=== PATIENT | male | born 1945 | race Caucasian/White ===

== ENCOUNTER 2021-03-07 11:46 | Observation (INO) ==
--- NOTE | 2021-03-07 11:07 | ED Telehealth Note ---
Telehealth Telehealth Options: 2-way audio and video For the duration of the visit, provider was performing the assessment from: A different facility than the patient After establishing a telemedicine visit, patient was: Patient was verified with two unique identifiers, Patient/authorized rep acknowledged consent and understanding and Gave permission to continue telehealth session Total Time Spent (minutes): 7 Impression & Plan Abdominal pain, Bloody diarrhea Note/Exam/Outcome Date of Service March 07, 2021 This pleasant 75-year-old male requested evaluation via telehealth with complaints of abdominal pain and diarrhea. Patient notes that he is getting over COVID and has been having diarrhea for weeks. However, he started having diffuse abdominal pain and back pain that started about 3 days ago and has been getting worse. Today he is feeling bloated. He has been feeling generally weak and tired. He also notes that he had some blood in his diarrhea a few days ago and now he is having black stools. He does take warfarin. He has not been vomi ting. He denies dizziness or syncope. He has not had any fevers recently. ED Telehealth Outcome Referred to ED for in person visit ED Visit Note I evaluated this pleasant 75-year-old male via telehealth with complaints of abdominal pain and diarrhea. Patient does note increasing abdominal pain as well as some bloody and black stools and is on blood thinner medications. Based on his complaints, I did feel that the patient warranted in person evaluation and I did recommend that he come to the emergency department for evaluation. He was agreeable to this. The patient did state that he feels well enough to drive himself, I cautioned him about this and stated if he felt too weak, dizzy, or short of breath that he should call an ambulance to bring him here if he does not feel safe to drive, he verbalized understanding. General Additional Notes: well appearing, in no acute distress Past Med/Surg History Medical History Asthma Benign esophageal stricture Degenerative arthritis of knee, bilateral DVT (deep venous thrombosis) Hypertension Lumbar spondylosis Pancreatitis Psoriasis Pulmonary emboli Trochanteric bursitis, right hip Surgical History S/P cholecystectomy S/P gastroplasty S/P hernia repair S/P tonsillectomy Family History Family/Other Hearing loss Paternal cousins Mother Hypertension Heart disease Other Myocardial infarction No family history of adverse response to anesthesia No family history of bleeding disorder Prostate cancer Denies family history of Ovarian cancer Breast cancer Colorectal cancer Social History Smoking Status: Never smoker Tobacco Type: Cigarettes packs per day: 1; Years Smoked: 25; Second Hand Exposure: No; Hx Alcohol Use: No Hx Substance Use: No Preferred Language: Sammarinese Visual Impairment: No Limitations Hearing Ability: Normal marital status: Current Living Situation: Spouse current occupational status: retired Feels Safe at Home: Yes Dental Care, Regularly: No Physical Activity Frequency: 1-2 Times per Week Physical Activity Frequency Comment: excerise arms Seatbelt Use: always Sunscreen Use: Yes Allergies Allergies Allergy/AdvReac Type Severity Reaction Status Date / Time amoxicillin Allergy Intermediate rash Verified 02/27/21 15:41 Penicillins Allergy Intermediate rash Verified 02/27/21 15:41 Home Meds Home Medications Medication Instructions Recorded Confirmed ferrous sulfate [Iron (ferrous 1 tab PO .QOD 06/03/20 02/27/21 sulfate)] warfarin 5 mg tablet See Rx Instructions PO DAILY tab 02/20/21 02/27/21 Previous Rx's Medication Instructions Recorded meclizine 25 mg tablet 25 mg PO BID PRN #30 tab 04/09/20 hydrochlorothiazide 25 mg tablet 25 mg PO DAILY #90 tab 04/25/20 lisinopril 20 mg tablet 20 mg PO DAILY #90 tab 04/25/20 pantoprazole 40 mg tablet,delayed 40 mg PO DAILY #90 tab 05/07/20 release potassium chloride 20 mEq 20 meq PO DAILY #90 tab 11/05/20 tablet,extended release(part/cryst) (Klor-Con M) fluoxetine 20 mg capsule 20 mg PO DAILY #180 cap 02/03/21 Results & Data (ED) Laboratory Data Result diagrams: 03/07/21 12:22 03/07/21 12:22 Discharge Plan Visit Data Chief Complaint: Abdominal Pain Stated Complaint: ABD PAIN, DIARRHEA ED Provider: Minh Godoy Discharge Problem: Abdominal pain, Bloody diarrhea Forms Stand Alone Forms: [facility] Prescriptions Prescriptions: No Action warfarin 5 mg tablet 7.5 mg PO DAILY RF: 0 hydrochlorothiazide 25 mg tablet 25 mg PO DAILY Qty: 90 RF: 3 lisinopril 20 mg tablet 20 mg PO DAILY Qty: 90 RF: 3 pantoprazole 40 mg tablet,delayed release (DR/EC) 40 mg PO DAILY Qty: 90 RF: 3 Klor-Con M20 20 mEq tablet,ER particles/crystals 20 meq PO DAILY Qty: 90 RF: 3 fluoxetine 20 mg capsule 20 mg PO DAILY Qty: 180 RF: 3 meclizine 25 mg tablet 25 mg PO BID PRN (Reason: dizziness) Qty: 30 RF: 0 ferrous sulfate 1 tab PO DAILY RF: 0 Referrals Referrals: Amirah Lopez CRNP [Primary Care Provider] - Discharge Problem: Abdominal pain Qualifiers: Abdominal location: generalized Qualified Code(s): R10.84 - Generalized abdominal pain
[2021-03-07] MEDS ORDERED: SODIUM CHLORIDE 0.9% 500 ML IV SCH (12:00)
--- NOTE | 2021-03-07 12:19 | Emergency Department Note ---
Impression & Plan Abdominal pain, DVT (deep venous thrombosis), Elevated INR, Low bicarbonate level, GI bleed ED Provider Note NAME: PANCHO SANDHU AGE: 75 SEX: M : 1945 ARRIVES VIA: Walk-In INFORMANT: Patient ED PROVIDER(S): Minh Godoy DO CHIEF COMPLAINT: Abdominal pain HPI: Patient is a 75-year-old male who presents to the ER for abdominal pain. He notes this has been going on for the past several days. He admits to 1 day of dark black stools. He has previously tested positive for Covid. He has had some intermittent bright red blood. He does take Coumadin. No headache or change in vision. No chest pain. He does feel very weak and rundown. No dysuria, urgency, or frequency. No other exacerbating or remitting factors. He admits to diffuse anterior abdominal pain which is crampy in nature. Is fairly persistent. ROS: See above HPI for pertinent positives & negatives. A total of 10 systems reviewed and were otherwise negative. PAST MEDICAL HISTORY:See Below PAST SURGICAL HISTORY:See Below FAMILY HISTORY:See Below SOCIAL HISTORY:See Below HOME MEDICATIONS:See Below ALLERGIES:See Below VITALS:See Below PHYSICAL EXAMINATION: GENERAL: Sitting up in bed, alert, morbidly obese, dyspneic with movement EYE EXAM: normal conjunctiva. OROPHARYNX: no exudate, no erythema, lips, buccal mucosa, and tongue normal and mucous membranes are moist NECK: supple, no nuchal rigidity, no adenopathy, non-tender LUNGS: Clear to auscultation. Normal chest wall mechanics HEART: no murmurs, S1 normal and S2 normal ABDOMEN: abdomen soft, non-tender, normo-active bowel sounds, no masses, no rebound or guarding. RECTAL: faint hem + UPPER EXTREMITIES: upper extremities are grossly normal. LOWER EXTREMITIES: No pitting edema. NEURO EXAM: Normal sensorium, cranial nerves II-XII grossly intact, normal speech, no gross weakness of arms, no gross weakness of legs. MEDICAL DECISION MAKING: Patient is a 75-year-old male who presents ER for diffuse abdominal pain with persistent diarrhea. Previously positive for Covid. He called in for telehealth and was recommended that he come in for evaluation due to dark stools. IV was established blood was obtained. Labs show no significant leukocytosis or anemia. INR was supratherapeutic at 4.3. BMP with a CO2 of 19 likely secondary to the diarrhea and a mildly elevated BUN likely 2/2 mild GI bleed from elevated INR. Bilirubin LFTs and troponin was unremarkable. Covid was still positive. He was typed and screened due to the dark stools that he was complaining of although his hemoglobin was stable. Vitals were stable. Chest x-ray was unremarkable. Ultrasound on the ninth for DVT. He is on Coumadin. Stools currently are not dark and tarry but rather brown and faintly heme positive. With his INR being elevated and the heme positive stools discussed with the patient regards to observation. Did discuss with Sri Calderon from the hospital service. Do favor this likely secondary to the elevated INR. Did not actively reverse him as he is in no extremis or distress. CT abdomen pelvis showed no acute pathology Triage Nursing notes reviewed. Limited review of prior medical records performed Vital Signs: reviewed and remarkable for no significant abnormalities Differential diagnosis: Differential diagnoses includes but is not limited to gastritis, peptic ulcer disease, GERD, gallbladder disease, pancreatitis, small bowel obstruction, acute coronary syndrome, pericarditis, ischemic bowel, irritable bowel disease, irritable bowel syndrome, appendicitis, diverticulitis, malignancy, hernia, urinary tract infection, torsion, perforation, trauma, infectious. ER treatment provided: See below Diagnostics interpreted by me: ECG: none Cardiac Monitoring: An order was placed for continuous cardiac monitoring. The monitor shows a rate of 82 with sinus rhythm. Laboratory studies: As stated above and show below. Imaging studies: CT abdomen pelvis no acute pathology Consultation(s): none Procedures: none Critical Care: None Past Med/Surg History Medical History Asthma Benign esophageal stricture Degenerative arthritis of knee, bilateral DVT (deep venous thrombosis) Hypertension Lumbar spondylosis Pancreatitis Psoriasis Pulmonary emboli Trochanteric bursitis, right hip Surgical History S/P cholecystectomy S/P gastroplasty S/P hernia repair S/P tonsillectomy Family History Family/Other Hearing loss Paternal cousins Mother Hypertension Heart disease Other Myocardial infarction No family history of adverse response to anesthesia No family history of bleeding disorder Prostate cancer Denies family history of Ovarian cancer Breast cancer Colorectal cancer Social History Smoking Status: Never smoker Tobacco Type: Cigarettes packs per day: 1; Years Smoked: 25; Second Hand Exposure: No; Hx Alcohol Use: No Hx Substance Use: No Preferred Language: Hebrew Visual Impairment: No Limitations Hearing Ability: Normal marital status: Current Living Situation: Spouse current occupational status: retired Feels Safe at Home: Yes Dental Care, Regularly: No Physical Activity Frequency: 1-2 Times per Week Physical Activity Frequency Comment: excerise arms Seatbelt Use: always Sunscreen Use: Yes Allergies Allergies Allergy/AdvReac Type Severity Reaction Status Date / Time amoxicillin Allergy Intermediate rash Verified 03/07/21 14:05 Penicillins Allergy Intermediate rash Verified 03/07/21 14:05 Home Meds Home Medications Medication Instructions Recorded Confirmed ferrous sulfate [Iron (ferrous 1 tab PO DAILY 06/03/20 03/07/21 sulfate)] warfarin 5 mg tablet 7.5 mg PO DAILY tab 02/20/21 03/07/21 Previous Rx's Medication Instructions Recorded meclizine 25 mg tablet 25 mg PO BID PRN #30 tab 04/09/20 hydrochlorothiazide 25 mg tablet 25 mg PO DAILY #90 tab 04/25/20 lisinopril 20 mg tablet 20 mg PO DAILY #90 tab 04/25/20 pantoprazole 40 mg tablet,delayed 40 mg PO DAILY #90 tab 05/07/20 release potassium chloride 20 mEq 20 meq PO DAILY #90 tab 11/05/20 tablet,extended release(part/cryst) (Klor-Con M) fluoxetine 20 mg capsule 20 mg PO DAILY #180 cap 02/03/21 Results & Data (ED) Vital Signs Vital Signs - 24 hr 03/07/21 11:53 03/07/21 14:34 Temperature 35.9 C L Temperature Source Temporal Artery Scan Pulse Rate 92 H Pulse Rate [Exercises] 84 Pulse Rhythm Regular Respiratory Rate 20 Respiratory Rate [Exercises] 21 Respiratory Effort / Characteristics Non-Labored Spontaneous Respiratory Depth Normal Respiratory Pattern Regular Blood Pressure 118/70 Blood Pressure Mean 86 Pulse Oximetry 96 Pulse Oximetry [Exercises] 97 Oxygen Delivery Method Room Air Room Air Sepsis Recent Fever Within 48 Hours No Sepsis New/Unexplained Change in Mental Status No Sepsis Action Taken by Nursing No Action Required Laboratory Data Result diagrams: 03/07/21 12:22 03/07/21 12:22 Lab Results 03/07/21 03/07/21 03/07/21 Range/Units 12:22 12:22 12:22 WBC 8.26 (4.8-10.8) K/uL RBC 5.43 (4.7-6.1) M/uL Hgb 15.1 (14.0-18.0) g/dL Hct 45.7 (42-52) % MCV 84.2 (80-100) fL MCH 27.8 (25-34) pg MCHC 33.0 (32-36) g/dL RDW Std Deviation 47.3 H (36.4-46.3) fL RDW Coeff of Monique 15.6 H (11.5-14.5) % Plt Count 264 (130-400) K/uL MPV 9.7 (7.4-10.4) fL Immature Gran % (Auto) 1.0 % Neut % (Auto) 65.6 % Lymph % (Auto) 16.9 % [place] % (Auto) 13.0 % Eos % (Auto) 3.3 % Baso % (Auto) 0.2 % Neut # (Auto) 5.42 (1.4-6.5) K/uL Lymph # (Auto) 1.40 (1.2-3.4) K/uL [place] # (Auto) 1.07 H (0.11-0.59) K/uL Eos # (Auto) 0.27 (0-0.5) K/uL Baso # (Auto) 0.02 (0-0.2) K/uL Immature Gran # (Auto) 0.08 H (0.00-0.02) K/uL PT 39.0 H (9.0-12.0) Seconds INR 4.3 H (0.9-1.1) APTT 44.3 H (21.0-31.0) Seconds PTT Ratio 1.7 Sodium (136-145) mmol/L Potassium (3.5-5.1) mmol/L Chloride (98-107) mmol/L Carbon Dioxide (21-32) mmol/L Anion Gap (3-11) BUN (7-18) mg/dl Creatinine (0.6-1.4) mg/dl Est Cr Clr Drug Dosing ml/min Est GFR ( Amer) ml/min Est GFR (Non-Af Amer) ml/min BUN/Creatinine Ratio (10-20) Glucose (70-99) mg/dl Calcium (8.5-10.1) mg/dl Total Bilirubin (0.2-1) mg/dl AST (15-37) U/L ALT (12-78) U/L Alkaline Phosphatase (45-117) U/L Troponin I (0-0.045) ng/ml Total Protein (6.4-8.2) gm/dl Albumin (3.4-5.0) gm/dl Globulin (2.5-4.0) gm/dl Albumin/Globulin Ratio (0.9-2) Specimen Hemolysis SARS-CoV-2, RNA, NAAT (NEGATIVE) Blood Type O Positive Antibody Screen NEGATIVE 03/07/21 03/07/21 Range/Units 12:22 12:30 WBC (4.8-10.8) K/uL RBC (4.7-6.1) M/uL Hgb (14.0-18.0) g/dL Hct (42-52) % MCV (80-100) fL MCH (25-34) pg MCHC (32-36) g/dL RDW Std Deviation (36.4-46.3) fL RDW Coeff of Monique (11.5-14.5) % Plt Count (130-400) K/uL MPV (7.4-10.4) fL Immature Gran % (Auto) % Neut % (Auto) % Lymph % (Auto) % Verm[place] % (Auto) % Eos % (Auto) % Baso % (Auto) % Neut # (Auto) (1.4-6.5) K/uL Lymph # (Auto) (1.2-3.4) K/uL [place] # (Auto) (0.11-0.59) K/uL Eos # (Auto) (0-0.5) K/uL Baso # (Auto) (0-0.2) K/uL Immature Gran # (Auto) (0.00-0.02) K/uL PT (9.0-12.0) Seconds INR (0.9-1.1) APTT (21.0-31.0) Seconds PTT Ratio Sodium 138 (136-145) mmol/L Potassium 4.0 (3.5-5.1) mmol/L Chloride 109 H (98-107) mmol/L Carbon Dioxide 19 L (21-32) mmol/L Anion Gap 10.0 (3-11) BUN 22 H (7-18) mg/dl Creatinine 1.35 (0.6-1.4) mg/dl Est Cr Clr Drug Dosing 66.3 ml/min Est GFR ( Amer) 59.5 ml/min Est GFR (Non-Af Amer) 51.4 ml/min BUN/Creatinine Ratio 15.9 (10-20) Glucose 115 H (70-99) mg/dl Calcium 9.0 (8.5-10.1) mg/dl Total Bilirubin 0.5 (0.2-1) mg/dl AST 35 (15-37) U/L ALT 54 (12-78) U/L Alkaline Phosphatase 96 (45-117) U/L Troponin I < 0.015 (0-0.045) ng/ml Total Protein 7.6 (6.4-8.2) gm/dl Albumin 3.2 L (3.4-5.0) gm/dl Globulin 4.4 H (2.5-4.0) gm/dl Albumin/Globulin Ratio 0.7 L (0.9-2) Specimen Hemolysis SARS-CoV-2, RNA, NAAT POSITIVE A* (NEGATIVE) Blood Type Antibody Screen Administered Medications Discontinued Medications Sodium Chloride (Nss) 500 mls @ 999 mls/hr IV .Q31M [facility] Stop: 03/07/21 12:30 Last Infusion: 03/07/21 13:23 Dose: 0 mls/hr Documented by: [id number] Admin: 03/07/21 12:47 Dose: 999 mls/hr Documented by: [id number] Ioversol (Optiray 320 125ml) 120 ml IV ONCE ONE Stop: 03/07/21 13:59 Last Admin: 03/07/21 14:00 Dose: 120 ml Documented by: [id number] Imaging Data Radiologist's Impression: Abdomen/Pelvis CT 03/07/21 12:15 CT SCAN OF THE ABDOMEN AND PELVIS WITH IV CONTRAST CLINICAL HISTORY: Generalized abdominal pain. Diarrhea. COMPARISON STUDY: Abdominal CT dated 12/04/2019. TECHNIQUE: Following the IV administration of 120 cc of Optiray 320, CT scan of the abdomen and pelvis is performed from the lung bases to the proximal femora. Images are reviewed in the axial, sagittal, and coronal planes. IV contrast was administered without complication. A dose lowering technique was utilized adhering to the principles of ALARA. The examination is degraded by large body habitus, and by streak artifact from the body wall abutting the CT gantry. CT DOSE: 1952.83 mGy.cm FINDINGS: Lung bases: The heart is normal in size and without pericardial effusion. The lung bases are clear noting bibasilar scarring/atelectasis. Liver: The contrast-enhanced liver is normal in size, contour, and attenuation. There is no intrahepatic biliary ductal dilatation. The hepatic veins and portal veins are patent. Gallbladder: Surgically absent noting clips in the gallbladder fossa. Spleen: Normal in size and attenuation. Pancreas: Unremarkable. Adrenal glands: Unremarkable. Kidneys: The contrast enhanced kidneys are atrophic. There is mild to moderate right-sided hydronephrosis and a large right extrarenal pelvis. 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 This is unchanged from 12/04/2019. There is no left-sided hydronephrosis. The kidneys enhance symmetrically. A chronic subcapsular fluid collection of the right kidney measures up to 11 mm in thickness. This is best seen on image #183. Abdominal vasculature: The abdominal aorta is normal in course and caliber noting moderate atherosclerotic calcification. Stomach and bowel: There is a tiny hiatal hernia. Postoperative change is noted involving the stomach. There is no bowel obstruction. The appendix is well- visualized and normal. Peritoneum: There is no intraperitoneal free air or abdominal ascites. There are fat-containing umbilical and supraumbilical hernias. Lymphadenopathy: None. Pelvic viscera: The prostate gland is mildly enlarged and heterogeneous. The bladder is normal as visualized. Skeletal structures: The skeletal structures are osteopenic. There is moderate lumbosacral spondylosis. No lytic or blastic lesions are seen. IMPRESSION: 1. There are no acute infectious or inflammatory findings in the abdomen or pelvis. 2. No bowel obstruction. 3. 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 4. 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 This is also unchanged from previous. 5. Additional findings as above.. ACT 112: Negative or not required by law. Electronically signed by: Ralph Lira M.D. 03/07/2021 2:12 PM Chest X-Ray 03/07/21 13:09 SINGLE VIEW CHEST CLINICAL HISTORY: Covid. FINDINGS: An AP, portable, upright chest radiograph is compared to chest x-ray and chest CT dated 02/27/2021. The cardiomediastinal silhouette is unremarkable. There is mild bibasilar atelectasis. The lungs and pleural spaces are otherwise clear. No pneumothorax is seen. The skeletal structures are osteopenic. The bony thorax is grossly intact. IMPRESSION: Cardiomegaly with no acute cardiopulmonary abnormality. ACT 112: Negative or not required by law. Electronically signed by: Ralph Lira M.D. 03/07/2021 1:34 PM Discharge Plan Visit Data Chief Complaint: Abdominal Pain Stated Complaint: ABD PAIN, DIARRHEA ED Provider: Minh Godoy Discharge Problem: Abdominal pain, DVT (deep venous thrombosis), Elevated INR, Low bicarbonate level, GI bleed Forms Stand Alone Forms: [facility] [employer] Prescriptions Prescriptions: No Action warfarin 5 mg tablet 7.5 mg PO DAILY RF: 0 hydrochlorothiazide 25 mg tablet 25 mg PO DAILY Qty: 90 RF: 3 lisinopril 20 mg tablet 20 mg PO DAILY Qty: 90 RF: 3 pantoprazole 40 mg tablet,delayed release (DR/EC) 40 mg PO DAILY Qty: 90 RF: 3 Klor-Con M20 20 mEq tablet,ER particles/crystals 20 meq PO DAILY Qty: 90 RF: 3 fluoxetine 20 mg capsule 20 mg PO DAILY Qty: 180 RF: 3 meclizine 25 mg tablet 25 mg PO BID PRN (Reason: dizziness) Qty: 30 RF: 0 ferrous sulfate 1 tab PO DAILY RF: 0 Referrals Referrals: Amirah Lopez CRNP [Primary Care Provider] -
[2021-03-07 12:29] LABS: Basophils # (auto) 0.02 K/uL (0-0.2); Basophils % (auto) 0.2 %; Eosinophils # (auto) 0.27 K/uL (0-0.5); Eosinophils % (auto) 3.3 %; Hematocrit (blood only) 45.7 % (42-52); Hemoglobin 15.1 g/dL (14.0-18.0); Immature Granulocytes # (auto) 0.08 K/uL (0.00-0.02); Lymphocytes % (auto) 16.9 %; Mean Corpuscular Hemoglobin 27.8 pg (25-34); Mean Corpuscular Volume 84.2 fL (80-100); Mean Platelet Volume 9.7 fL (7.4-10.4); Monocytes # (auto) 1.07 K/uL (0.11-0.59); Neutrophils # (auto) 5.42 K/uL (1.4-6.5); Neutrophils % (auto) 65.6 %; Platelet Count 264 K/uL (130-400); RDW Coefficient of Variation 15.6 % (11.5-14.5); RDW Standard Deviation 47.3 fL (36.4-46.3); Red Blood Count 5.43 M/uL (4.7-6.1); White Blood Count 8.26 K/uL (4.8-10.8)
[2021-03-07 12:48] LABS: INR 4.3 (0.9-1.1); Partial Thromboplastin Ratio 1.7; Partial Thromboplastin Time 44.3 Seconds (21.0-31.0)
[2021-03-07 12:57] LABS: Alanine Aminotransferase 54 U/L (12-78); Albumin Globulin Ratio 0.7 (0.9-2); Albumin Level 3.2 gm/dl (3.4-5.0); Alkaline Phosphatase 96 U/L (45-117); Aspartate Aminotransferase 35 U/L (15-37); BUN Creatinine Ratio 15.9 (10-20); Bilirubin,Total 0.5 mg/dl (0.2-1); Blood Urea Nitrogen 22 mg/dl (7-18); Carbon Dioxide 19 mmol/L (21-32); Chloride 109 mmol/L (98-107); Creatinine Clr Calc Pharmacy 66.3 ml/min; Est GFR (African American) 59.5 ml/min; Est GFR (Non-African American) 51.4 ml/min; Globulin 4.4 gm/dl (2.5-4.0); Glucose 115 mg/dl (70-99); Sodium 138 mmol/L (136-145); Total Protein 7.6 gm/dl (6.4-8.2); Troponin I < 0.015 ng/ml (0-0.045)
--- NOTE | 2021-03-07 13:35 | XRay Report ---
SINGLE VIEW CHEST CLINICAL HISTORY: Covid. FINDINGS: An AP, portable, upright chest radiograph is compared to chest x-ray and chest CT dated . The cardiomediastinal silhouette is unremarkable. There is mild bibasilar atelectasis. The l ungs and pleural spaces are otherwise clear. No pneumothorax is seen. The skeletal structures are ost eopenic. The bony thorax is grossly intact. IMPRESSION: Cardiomegaly with no acute cardiopulmonary abnormality. ACT 112: Negative or not required by law. Electronically signed by: Ralph Lira M.D. 03/07/2021 1:34 PM
[2021-03-07] MEDS ORDERED: OPTIRAY 320 125ml IV ONE (13:58)
--- NOTE | 2021-03-07 14:13 | CT Scan Report ---
CT SCAN OF THE ABDOMEN AND PELVIS WITH IV CONTRAST CLINICAL HISTORY: Generalized abdominal pain. Diarrhea. COMPARISON STUDY: Abdominal CT dated 12/04/2019. TECHNIQUE: Following the IV administration of 120 cc of Optiray 320, CT scan of the abdomen and pelv is is performed from the lung bases to the proximal femora. Images are reviewed in the axial, sagitta l, and coronal planes. IV contrast was administered without complication. A dose lowering technique w as utilized adhering to the principles of ALARA. The examination is degraded by large body habitus, a nd by streak artifact from the body wall abutting the CT gantry. CT DOSE: 1952.83 mGy.cm FINDINGS: Lung bases: The heart is normal in size and without pericardial effusion. The lung bases are clear no ting bibasilar scarring/atelectasis. Liver: The contrast-enhanced liver is normal in size, contour, and attenuation. There is no intrahepa tic biliary ductal dilatation. The hepatic veins and portal veins are patent. Gallbladder: Surgically absent noting clips in the gallbladder fossa. Spleen: Normal in size and attenuation. Pancreas: Unremarkable. Adrenal glands: Unremarkable. Kidneys: The contrast enhanced kidneys are atrophic. There is mild to moderate right-sided hydronephr osis and a large right extrarenal pelvis. 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 This is unchanged from 12/04/2019 . There is no left-sided hydronephrosis. The kidneys enhance symmetrically. A chronic subcapsular flu id collection of the right kidney measures up to 11 mm in thickness. This is best seen on image #183. Abdominal vasculature: The abdominal aorta is normal in course and caliber noting moderate atheroscle rotic calcification. Stomach and bowel: There is a tiny hiatal hernia. Postoperative change is noted involving the stomach . There is no bowel obstruction. The appendix is well-visualized and normal. Peritoneum: There is no intraperitoneal free air or abdominal ascites. There are fat-containing umbil ical and supraumbilical hernias. Lymphadenopathy: None. Pelvic viscera: The prostate gland is mildly enlarged and heterogeneous. The bladder is normal as vis ualized. Skeletal structures: The skeletal structures are osteopenic. There is moderate lumbosacral spondylosi s. No lytic or blastic lesions are seen. IMPRESSION: 1. There are no acute infectious or inflammatory findings in the abdomen or pelvis. 2. No bowel obstruction. 3. 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 4. 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 T his is also unchanged from previous. 5. Additional findings as above.. ACT 112: Negative or not required by law. Electronically signed by: Ralph Lira M.D. 03/07/2021 2:12 PM
--- NOTE | 2021-03-07 16:15 | History & Physical Report ---
Date of Service March 07, 2021 Assessment & Plan (1) GI bleed: Plan: Patient presents with dark stools and epigastric abdominal pain x1 day Fortunately hemoglobin is stable at 15. This is in the setting of taking Coumadin and his INR is supratherapeutic on arrival at 4.3 He does take ferrous sulfate which could turn his stool dark in color, however he reports there was some bright red blood in the water in the toilet as well He is hemodynamically stable Last EGD and colonoscopy were approximately 4 years ago at an outside facility in [place]-he recalls having some benign polyps but a normal EGD He does have a history of gastric bypass surgery which places him at risk for anastomotic ulcers Given recent Covid infection, he may have undergone stress. He does not use NSAIDs or aspirin -Admit to medical floor with telemetry -Hold Coumadin, but no need to give vitamin K at this point in the setting of recent DVT and he is hemodynamically stable -Follow PT/INR in the morning -Start Protonix 40 mg IV twice daily -Consult gastroenterology to see about possible EGD tomorrow -Keep n.p.o. except sips with meds -Hydrate with LR at 80 mL's per hour gently overnight while n.p.o. -Follow CBC this evening and again in the morning (2) Abdominal pain: Plan: Patient has both epigastric tenderness on examination which may be due to peptic ulcer disease as above, but he also complains of lower abdominal pain There is nothing to correlate with this on CT scan but he does have 2 ventral hernias which contain fat on imaging He has a history of mesh repair x2 for incisional hernia He has concerns that this may be causing his pain We will ask general surgery to consult and give an opinion on if there is an issue with his hernias causing the lower abdominal pains. -Otherwise, treating with Protonix as above -Tylenol as needed (3) Anticoagulated on Coumadin: Plan: As above, for history of recurrent VTE Holding Coumadin Follow PT/INR in the morning (4) Diarrhea: Plan: Secondary to Covid infection in the last several weeks Now improving but has turned dark in color with some red blood as above (5) COVID-19: Plan: Started having symptoms approximately 16 days ago, is now outside the window for needing to quarantine and symptoms have all significantly improved He is not hypoxic and does not have pneumonia on chest x-ray -Does not need to be on Covid precautions for isolation (6) DVT (deep venous thrombosis): Plan: Diagnosed on 02/12 with DVT in the right popliteal vein and also in the right posterior tibial and peroneal veins This was in the setting of being on Xarelto He does have a history of gastric bypass and likely the Xarelto is not being absorbed very well He is also morbidly obese He is now on Coumadin as above If he continues to have proven issues with GI bleeding, perhaps he would need an IVC filter (7) Low bicarbonate level: Plan: Mildly low, nonanion gap metabolic acidosis Likely secondary to recent diarrhea and GI losses -Follow BMP in the morning (8) Pre-diabetes: Plan: Hemoglobin A1c 6.0% earlier this year No medications for this (9) Personal history of gastric bypass: Plan: As noted above (10) Sleep apnea: Plan: May use CPAP from home (11) Morbid obesity: Plan: BMI 44.3 Needs weight loss-counseling given (12) Hypertension: Plan: Blood pressures are acceptable Continue home lisinopril Hold home hydrochlorothiazide in the setting of mild dehydration from diarrhea Hold home potassium chloride (13) Asthma: Plan: States that he was told he longer has this diagnosis, but 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 is due to morbid obesity and he does not have asthma (14) GERD (gastroesophageal reflux disease): Plan: Continue Protonix as above (15) Depression: Plan: Continue home fluoxetine (16) Hematoma: Plan: Hematoma present in the right leg for the last several weeks after a trauma in the setting of anticoagulation With open wound Needs wound care daily dressing changes Wound care nurse consulted Also noted on ultrasound from 02/12 to have a 2.4 cm echogenic right groin focus that could also be a hematoma or mass but was not typical appearance for lymph node Needs follow-up ultrasound in 3 months of the right groin to ensure resolution Plan: DVT prophylaxis-INR is therapeutic on Coumadin Disposition-admit to medical floor with telemetry for possible GI bleed and further GI evaluation History of Present Illness Chief Complaint: Dark stools, abdominal pain, "I feel terrible" Primary Care Provider: LEVON Jimenez This patient is a 75-year-old male with history of HTN, obesity status post gastric bypass surgery, dyslipidemia, GERD, DVT/PE, JULIETTE, prediabetes and a recent Covid-19 infection (despite being fully vaccinated) for which he received Regeneron on 02/27/2021, who presents to the ER with abdominal pain and 1 day of dark black stools with some intermittent bright red blood. He was recently started on Coumadin for an acute right lower extremity DVT in the setting of taking Xarelto-this was considered a failure of Xarelto and he was switched to Coumadin on 02/12. His abdominal pain is diffuse and crampy in nature and is located across his lower abdomen and into his lower back bilaterally. He denies any blood in his urine, but does feel like this is somewhat similar to pain he experienced with kidney stones in the past. He has not had any fevers. He was Hemoccult positive in the ER as per ER physician's examination. The patient is worried that maybe his abdominal pain is coming from the mesh that he has had placed for his ventral hernia x2. As for his recent Covid infection, he feels completely better from that. He did experience diarrhea with having Covid but that has certainly slowed down. He has no shortness of breath except his chronic dyspnea x10 years, denies cough, no further fevers or body aches. In the ER, his hemoglobin was fortunately stable at 15.1, INR elevated at 4.3, and he had a mild non-anion gap metabolic acidosis with a serum bicarbonate of 19. His BUN was only minimally elevated at 22 and creatinine was up slightly from previous at 1.35. His LFTs, troponin were normal, and a repeat Covid-19 test was positive. He was Hemoccult positive on rectal exam as per ER physician. 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 His vital signs were within normal limits. He was not given vitamin K as he was hemodynamically stable, hemoglobin was normal, and he was recently diagnosed with a new DVT on 02/12/2021. He will be admitted for GI bleed in the setting of anticoagulation and recent DVT. Allergies Allergy/AdvReac Type Severity Reaction Status Date / Time amoxicillin Allergy Intermediate rash Verified 03/07/21 14:05 Penicillins Allergy Intermediate rash Verified 03/07/21 14:05 Home Medications Medication Instructions Recorded Confirmed Type meclizine 25 mg tablet 25 mg PO BID PRN #30 tab 04/09/20 03/07/21 Rx hydrochlorothiazide 25 mg tablet 25 mg PO DAILY #90 tab 04/25/20 03/07/21 Rx lisinopril 20 mg tablet 20 mg PO DAILY #90 tab 04/25/20 03/07/21 Rx pantoprazole 40 mg tablet,delayed 40 mg PO DAILY #90 tab 05/07/20 03/07/21 Rx release ferrous sulfate [Iron (ferrous 1 tab PO DAILY 06/03/20 03/07/21 History sulfate)] potassium chloride 20 mEq 20 meq PO DAILY #90 tab 11/05/20 03/07/21 Rx tablet,extended release(part/cryst) (Klor-Con M) fluoxetine 20 mg capsule 20 mg PO DAILY #180 cap 02/03/21 03/07/21 Rx warfarin 5 mg tablet 7.5 mg PO DAILY tab 02/20/21 03/07/21 History Past Med/Surg History Medical History Asthma Benign esophageal stricture Degenerative arthritis of knee, bilateral DVT (deep venous thrombosis) Hypertension Lumbar spondylosis Pancreatitis Psoriasis Pulmonary emboli Trochanteric bursitis, right hip Surgical History S/P cholecystectomy S/P gastroplasty S/P hernia repair S/P tonsillectomy Family History Family/Other Hearing loss Paternal cousins Mother Hypertension Heart disease Other Myocardial infarction No family history of adverse response to anesthesia No family history of bleeding disorder Prostate cancer Denies family history of Ovarian cancer Breast cancer Colorectal cancer Social History Smoking Status: Former smoker Tobacco Type: Cigarettes packs per day: 1; Years Smoked: 25; Second Hand Exposure: No; Hx Alcohol Use: No Hx Substance Use: No Preferred Language: Czech Visual Impairment: No Limitations Hearing Ability: Normal marital status: Current Living Situation: Spouse current occupational status: retired Feels Safe at Home: Yes Dental Care, Regularly: No Physical Activity Frequency: 1-2 Times per Week Physical Activity Frequency Comment: excerise arms Seatbelt Use: always Sunscreen Use: Yes Review of Systems Review of Systems: All systems reviewed & are unremarkable except as noted in HPI & below Physical Exam Constitutional: WD/WN, vitals as above + obese Eyes: PERRL, conjunctivae normal, anicteric sclerae ENMT: external ear and nose normal, oropharynx normal Neck: trachea midline, no thyromegaly Respiratory: normal respiratory effort, lungs clear to auscultation Cardiovascular: Rate/Rhythm: regular rate and regular rhythm Heart Sounds: no murmur Extremities: + edema (Trace pitting edema of the legs bilaterally) Chest (Breasts): Chest: normal inspection of chest Gastrointestinal (Abdomen): Inspection/Auscultation: normal bowel sounds and + abdominal wall ecchymosis (A few small old ecchymoses from Lovenox shots); + abdomen abnormal to inspection (Morbidly obese) Percussion/Palpation: + abdomen tender (In epigastric region without guarding or rebound) and abdomen soft Musculoskeletal: Extremities: extremities normal to inspection; no cyanosis and no clubbing Skin: + wound (Right anterior leg with 1 cm open wound with scab, small hematoma) Neurologic: moves all extremities and awake; no focal motor deficits Psychiatric: A+Ox3, euthymic affect Lymphatic: no lymphedema Results & Data Results & Data ([facility]) Vital Signs (Past 12 Hours) Vital Signs Temp Pulse Pulse Pulse Resp Resp BP 03/07/21 15:00 77 18 03/07/21 14:34 84 21 03/07/21 13:45 58 L 17 03/07/21 11:53 35.9 C L 92 H 20 118/70 BP Pulse Ox Pulse Ox 03/07/21 15:00 119/72 97 03/07/21 14:34 97 03/07/21 13:45 116/67 97 03/07/21 11:53 96 Laboratory Results 03/07/21 03/07/21 03/07/21 Range/Units 12:30 12:22 12:22 WBC (4.8-10.8) K/uL RBC (4.7-6.1) M/uL Hgb (14.0-18.0) g/dL Hct (42-52) % MCV (80-100) fL MCH (25-34) pg MCHC (32-36) g/dL RDW Std Deviation (36.4-46.3) fL RDW Coeff of Monique (11.5-14.5) % Plt Count (130-400) K/uL MPV (7.4-10.4) fL Immature Gran % (Auto) % Neut % (Auto) % Lymph % (Auto) % Edgar % (Auto) % Eos % (Auto) % Baso % (Auto) % Neut # (Auto) (1.4-6.5) K/uL Lymph # (Auto) (1.2-3.4) K/uL Edgar # (Auto) (0.11-0.59) K/uL Eos # (Auto) (0-0.5) K/uL Baso # (Auto) (0-0.2) K/uL Immature Gran # (Auto) (0.00-0.02) K/uL PT 39.0 H (9.0-12.0) Seconds INR 4.3 H (0.9-1.1) APTT 44.3 H (21.0-31.0) Seconds PTT Ratio 1.7 Sodium 138 (136-145) mmol/L Potassium 4.0 (3.5-5.1) mmol/L Chloride 109 H (98-107) mmol/L Carbon Dioxide 19 L (21-32) mmol/L Anion Gap 10.0 (3-11) BUN 22 H (7-18) mg/dl Creatinine 1.35 (0.6-1.4) mg/dl Est Cr Clr Drug Dosing 66.3 ml/min Est GFR ( Amer) 59.5 ml/min Est GFR (Non-Af Amer) 51.4 ml/min BUN/Creatinine Ratio 15.9 (10-20) Glucose 115 H (70-99) mg/dl Calcium 9.0 (8.5-10.1) mg/dl Total Bilirubin 0.5 (0.2-1) mg/dl AST 35 (15-37) U/L ALT 54 (12-78) U/L Alkaline Phosphatase 96 (45-117) U/L Troponin I < 0.015 (0-0.045) ng/ml Total Protein 7.6 (6.4-8.2) gm/dl Albumin 3.2 L (3.4-5.0) gm/dl Globulin 4.4 H (2.5-4.0) gm/dl Albumin/Globulin Ratio 0.7 L (0.9-2) Specimen Hemolysis SARS-CoV-2, RNA, NAAT POSITIVE A* (NEGATIVE) Blood Type Antibody Screen 03/07/21 03/07/21 Range/Units 12:22 12:22 WBC 8.26 (4.8-10.8) K/uL RBC 5.43 (4.7-6.1) M/uL Hgb 15.1 (14.0-18.0) g/dL Hct 45.7 (42-52) % MCV 84.2 (80-100) fL MCH 27.8 (25-34) pg MCHC 33.0 (32-36) g/dL RDW Std Deviation 47.3 H (36.4-46.3) fL RDW Coeff of Monique 15.6 H (11.5-14.5) % Plt Count 264 (130-400) K/uL MPV 9.7 (7.4-10.4) fL Immature Gran % (Auto) 1.0 % Neut % (Auto) 65.6 % Lymph % (Auto) 16.9 % Edgar % (Auto) 13.0 % Eos % (Auto) 3.3 % Baso % (Auto) 0.2 % Neut # (Auto) 5.42 (1.4-6.5) K/uL Lymph # (Auto) 1.40 (1.2-3.4) K/uL Edgar # (Auto) 1.07 H (0.11-0.59) K/uL Eos # (Auto) 0.27 (0-0.5) K/uL Baso # (Auto) 0.02 (0-0.2) K/uL Immature Gran # (Auto) 0.08 H (0.00-0.02) K/uL PT (9.0-12.0) Seconds INR (0.9-1.1) APTT (21.0-31.0) Seconds PTT Ratio Sodium (136-145) mmol/L Potassium (3.5-5.1) mmol/L Chloride (98-107) mmol/L Carbon Dioxide (21-32) mmol/L Anion Gap (3-11) BUN (7-18) mg/dl Creatinine (0.6-1.4) mg/dl Est Cr Clr Drug Dosing ml/min Est GFR ( Amer) ml/min Est GFR (Non-Af Amer) ml/min BUN/Creatinine Ratio (10-20) Glucose (70-99) mg/dl Calcium (8.5-10.1) mg/dl Total Bilirubin (0.2-1) mg/dl AST (15-37) U/L ALT (12-78) U/L Alkaline Phosphatase (45-117) U/L Troponin I (0-0.045) ng/ml Total Protein (6.4-8.2) gm/dl Albumin (3.4-5.0) gm/dl Globulin (2.5-4.0) gm/dl Albumin/Globulin Ratio (0.9-2) Specimen Hemolysis SARS-CoV-2, RNA, NAAT (NEGATIVE) Blood Type O Positive Antibody Screen NEGATIVE Diagnostic Findings Abdomen/Pelvis CT 03/07/21 12:15 CT SCAN OF THE ABDOMEN AND PELVIS WITH IV CONTRAST CLINICAL HISTORY: Generalized abdominal pain. Diarrhea. COMPARISON STUDY: Abdominal CT dated 12/04/2019. TECHNIQUE: Following the IV administration of 120 cc of Optiray 320, CT scan of the abdomen and pelvis is performed from the lung bases to the proximal femora. Images are reviewed in the axial, sagittal, and coronal planes. IV contrast was administered without complication. A dose lowering technique was utilized adhering to the principles of ALARA. The examination is degraded by large body habitus, and by streak artifact from the body wall abutting the CT gantry. CT DOSE: 1952.83 mGy.cm FINDINGS: Lung bases: The heart is normal in size and without pericardial effusion. The lung bases are clear noting bibasilar scarring/atelectasis. Liver: The contrast-enhanced liver is normal in size, contour, and attenuation. There is no intrahepatic biliary ductal dilatation. The hepatic veins and portal veins are patent. Gallbladder: Surgically absent noting clips in the gallbladder fossa. Spleen: Normal in size and attenuation. Pancreas: Unremarkable. Adrenal glands: Unremarkable. Kidneys: The contrast enhanced kidneys are atrophic. There is mild to moderate right-sided hydronephrosis and a large right extrarenal pelvis. 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 This is unchanged from 12/04/2019. There is no left-sided hydronephrosis. The kidneys enhance symmetrically. A chronic subcapsular fluid collection of the right kidney measures up to 11 mm in thi ckness. This is best seen on image #183. Abdominal vasculature: The abdominal aorta is normal in course and caliber noting moderate atherosclerotic calcification. Stomach and bowel: There is a tiny hiatal hernia. Postoperative change is noted involving the stomach. There is no bowel obstruction. The appendix is well- visualized and normal. Peritoneum: There is no intraperitoneal free air or abdominal ascites. There are fat-containing umbilical and supraumbilical hernias. Lymphadenopathy: None. Pelvic viscera: The prostate gland is mildly enlarged and heterogeneous. The bladder is normal as visualized. Skeletal structures: The skeletal structures are osteopenic. There is moderate lumbosacral spondylosis. No lytic or blastic lesions are seen. IMPRESSION: 1. There are no acute infectious or inflammatory findings in the abdomen or pelvis. 2. No bowel obstruction. 3. 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 4. 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 This is also unchanged from previous. 5. Additional findings as above.. ACT 112: Negative or not required by law. Electronically signed by: Ralph Lira M.D. 03/07/2021 2:12 PM Chest X-Ray 03/07/21 13:09 SINGLE VIEW CHEST CLINICAL HISTORY: Covid. FINDINGS: An AP, portable, upright chest radiograph is compared to chest x-ray and chest CT dated 02/27/2021. The cardiomediastinal silhouette is unremarkable. There is mild bibasilar atelectasis. The lungs and pleural spaces are otherwise clear. No pneumothorax is seen. The skeletal structures are osteopenic. The bony thorax is grossly intact. IMPRESSION: Cardiomegaly with no acute cardiopulmonary abnormality. ACT 112: Negative or not required by law. Electronically signed by: Ralph Lira M.D. 03/07/2021 1:34 PM ECG Additional Comments: ECG on 03/07/2021 at 1237 with normal sinus rhythm, rate 64, no ischemia Code Status & VTE Plan Code Status Full code VTE Prophylaxis Plan VTE Prophylaxis will be ordered: Yes PG Care Time/CCT Total # of Minutes Spent Total Time Spent with Patient: Total time spent is greater than 50% in coordination of care (as documented) at patient's floor/unit and/or counseling patient: Coding Level of Care Code 98252 Initial Inpt Care Lvl 3 Diagnoses COVID-19 U07.1 DVT (deep venous thrombosis) I82.409 Affected thrombotic vein of extremity: unspecified vein of extremity Chronicity: acute DVT location: lower extremity Laterality: unspecified laterality Low bicarbonate level E87.8 GI bleed K92.2 GI bleed type/associated pathology: unspecified gastrointestinal hemorrhage type Anticoagulated on Coumadin Z79.01 Diarrhea R19.7 Pre-diabetes R73.03 Personal history of gastric bypass Z98.84 Sleep apnea G47.30 Morbid obesity E66.01 Hypertension I10 Asthma J45.909 GERD (gastroesophageal reflux disease) K21.9 Abdominal pain R10.84 Abdominal location: generalized Depression F32.9 Hematoma T14.8XXA (1) GI bleed GI bleed type/associated pathology: unspecified gastrointestinal hemorrhage type Qualified Code(s): K92.2 - Gastrointestinal hemorrhage, unspecified (2) DVT (deep venous thrombosis) Affected thrombotic vein of extremity: unspecified vein of extremity Chronicity: acute DVT location: lower extremity Laterality: unspecified laterality Qualified Code(s): I82.409 - Acute embolism and thrombosis of unspecified deep veins of unspecified lower extremity (3) Abdominal pain Abdominal location: generalized Qualified Code(s): R10.84 - Generalized abdominal pain
[2021-03-07] MEDS ORDERED: LACTATED RINGER'S 1,000 ML IV SCH (17:15)
[2021-03-07 17:27] LABS: Appearance Urine Cloudy (Clear); Bacteria Urine Automated Negative (Negative); Bilirubin Urine Negative (Negative); Blood Urine Negative (Negative); Color Urine Yellow; Glucose Urine UA Negative (Negative); Ketones Urine Negative (Negative); Leukocyte Esterase Urine Negative (Negative); Nitrite Urine Negative (Negative); Protein Urine Negative (Negative); RBC Urine Automated 0-4 /hpf (0-4); Specific Gravity Urine 1.037 (1.000-1.030); Urobilinogen Urine Negative (Negative)
[2021-03-07 18:09] LABS: Hematocrit (blood only) 43.4 % (42-52); Mean Corpuscular Hemoglobin 27.4 pg (25-34); Mean Corpuscular Hgb Conc 32.3 g/dL (32-36); Mean Corpuscular Volume 84.9 fL (80-100); Mean Platelet Volume 9.7 fL (7.4-10.4); Platelet Count 257 K/uL (130-400); RDW Coefficient of Variation 15.5 % (11.5-14.5); RDW Standard Deviation 48.2 fL (36.4-46.3); Red Blood Count 5.11 M/uL (4.7-6.1); White Blood Count 9.17 K/uL (4.8-10.8)
[2021-03-07] MEDS: PANTOprazole 40 MG in SYRINGE 0 ML IV SCH (18:41)
[2021-03-07] MEDS ORDERED: ONDANSETRON INJ 2 MG/ML 2 ML VIAL IV PRN (20:59)
[2021-03-07] MEDS: ACETAMINOPHEN 325 MG TAB PO PRN (21:30)
[2021-03-08 05:18] LABS: Basophils # (auto) 0.03 K/uL (0-0.2); Basophils % (auto) 0.4 %; Eosinophils # (auto) 0.27 K/uL (0-0.5); Eosinophils % (auto) 3.5 %; Hematocrit (blood only) 44.4 % (42-52); Hemoglobin 14.4 g/dL (14.0-18.0); Immature Granulocytes # (auto) 0.07 K/uL (0.00-0.02); Immature Granulocytes % (auto) 0.9 %; Lymphocytes # (auto) 1.34 K/uL (1.2-3.4); Lymphocytes % (auto) 17.4 %; Mean Corpuscular Hemoglobin 27.5 pg (25-34); Mean Corpuscular Hgb Conc 32.4 g/dL (32-36); Mean Corpuscular Volume 84.9 fL (80-100); Mean Platelet Volume 9.4 fL (7.4-10.4); Monocytes # (auto) 0.99 K/uL (0.11-0.59); Monocytes % (auto) 12.9 %; Neutrophils # (auto) 4.98 K/uL (1.4-6.5); Neutrophils % (auto) 64.9 %; Platelet Count 254 K/uL (130-400); RDW Coefficient of Variation 15.6 % (11.5-14.5); RDW Standard Deviation 48.2 fL (36.4-46.3); Red Blood Count 5.23 M/uL (4.7-6.1); White Blood Count 7.68 K/uL (4.8-10.8)
[2021-03-08 05:36] LABS: BUN Creatinine Ratio 13.7 (10-20); Creatinine Clr Calc Pharmacy 79.7 ml/min; Est GFR (African American) 65.3 ml/min; Est GFR (Non-African American) 56.4 ml/min; INR 4.9 (0.9-1.1); Potassium 3.6 mmol/L (3.5-5.1)
--- NOTE | 2021-03-08 07:25 | Electrocardiogram Report ---
Test Reason : Blood Pressure : / mmHG Vent. Rate : 064 BPM Atrial Rate : 064 BPM P-R Int : 184 ms QRS Dur : 080 ms QT Int : 406 ms P-R-T Axes : -09 001 035 degrees QTc Int : 418 ms Normal sinus rhythm Normal ECG When compared with ECG of 27-FEB-2021 14:23, Premature atrial complexes are no longer Present Confirmed by Kory Samuel ([id number]) on 03/08/2021 7:25:07 AM Referred By: REFERRED SELF Confirmed By:Santhosh Samuel
[2021-03-08] MEDS: ACETAMINOPHEN 325 MG TAB PO PRN (07:39)
[2021-03-08] MEDS ORDERED: lisinopril 20 MG TAB PO SCH (09:00)
[2021-03-08] MEDS ORDERED: FLUoxetine HCL 20 MG CAP PO SCH (09:00)
[2021-03-08] MEDS: PANTOprazole 40 MG in SYRINGE 0 ML IV SCH (09:01)
--- NOTE | 2021-03-08 09:01 | Gastrointestinal Consultation ---
Date of Consultation March 08, 2021 Assessment & Plan (1) Abdominal pain, epigastric: (2) Heme positive stool: (3) Supratherapeutic INR: Patient is hemodynamically stable with normal H/H Most likely heme positive secondary to Supratherapeutic INR Continue Protonix 40 mg BID, but can switch to PO No need for inpatient EGD, can do this and colonoscopy followup for polyps as outpatient Advance diet as tolerated. History of Present Illness Reason for Consultation: Abdominal pain, Fecal occult positive stool Attending Physician: Cornelius Judge DO History of Present Illness Jimbo Elias is a 75 yo CM with an extensive PMHx who was recently admitted secondary to COVID-19 infection who presented to the ER yesterday with complaints of epigastric abdominal pain and dark stools. He does take Coumadin therapy for prior history of DVT and PE, and was noted to have a supratherapeutic INR of 4.3 on ER lab studies. His H/H was 15.1/45.7 on arrival. He was hemodynamically stable, and his Coumadin was held, but no reversal agents were given. He was started on Protonix IV BID. CT abd/pelvis was performed which showed 2 ventral hernias, but no other findings. At the time I saw the patient, he was sitting comfortably at his bedside. He denies any fevers, chills, nausea, vomiting, hematemesis, melena or hematochezia since his arrival. He does have some lower abdominal discomfort, which he describes as 3/10 in intensity, "similar to when I had kidney stones in the past." He denies any further complaints. Of note, he did have Gastric bypass surgery approximately 30 years ago in [place]. He also had an EGD and coloscopy in [place] 4 years ago, with findings of colon polyps, and diverticulosis, but no other findings. He has no further complaints. Allergies Allergy/AdvReac Type Severity Reaction Status Date / Time amoxicillin Allergy Intermediate rash Verified 03/07/21 14:05 Penicillins Allergy Intermediate rash Verified 03/07/21 14:05 Home Medications Medication Instructions Recorded Confirmed Type meclizine 25 mg tablet 25 mg PO BID PRN #30 tab 04/09/20 03/07/21 Rx hydrochlorothiazide 25 mg tablet 25 mg PO DAILY #90 tab 04/25/20 03/07/21 Rx lisinopril 20 mg tablet 20 mg PO DAILY #90 tab 04/25/20 03/07/21 Rx pantoprazole 40 mg tablet,delayed 40 mg PO DAILY #90 tab 05/07/20 03/07/21 Rx release ferrous sulfate [Iron (ferrous 1 tab PO DAILY 06/03/20 03/07/21 History sulfate)] potassium chloride 20 mEq 20 meq PO DAILY #90 tab 11/05/20 03/07/21 Rx tablet,extended release(part/cryst) (Klor-Con M) fluoxetine 20 mg capsule 20 mg PO DAILY #180 cap 02/03/21 03/07/21 Rx warfarin 5 mg tablet 7.5 mg PO DAILY tab 02/20/21 03/07/21 History Patient History Medical History Asthma Benign esophageal stricture Degenerative arthritis of knee, bilateral DVT (deep venous thrombosis) Hypertension Lumbar spondylosis Pancreatitis Psoriasis Pulmonary emboli Trochanteric bursitis, right hip Surgical History S/P cholecystectomy S/P gastroplasty S/P hernia repair S/P tonsillectomy Family History Family/Other Hearing loss Paternal cousins Mother Hypertension Heart disease Other Myocardial infarction No family history of adverse response to anesthesia No family history of bleeding disorder Prostate cancer Denies family history of Ovarian cancer Breast cancer Colorectal cancer Social History Smoking Status: Never smoker Tobacco Type: Cigarettes packs per day: 1; Years Smoked: 25; Second Hand Exposure: No; Hx Alcohol Use: No Hx Substance Use: No Preferred Language: Spanish Visual Impairment: No Limitations Hearing Ability: Normal 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 marital status: Current Living Situation: Spouse current occupational status: retired Feels Safe at Home: Yes Safety Concerns: Feels Safe At This Time Dental Care, Regularly: No Physical Activity Frequency: 1-2 Times per Week Physical Activity Frequency Comment: excerise arms Seatbelt Use: always Sunscreen Use: Yes Assistive Devices: Denture - Upper, Denture - Lower, Glasses, Hearing Aid - Left and Hearing Aid - Right Review of Systems Constitutional: as per Subjective / HPI Eyes: as per Subjective / HPI Ear, Nose, Mouth, Throat: as per Subjective / HPI Respiratory: as per Subjective / HPI Cardiovascular: as per Subjective / HPI Gastrointestinal: as per Subjective / HPI Musculoskeletal: as per Subjective / HPI Integumentary: as per Subjective / HPI Neurologic: as per Subjective / HPI Psychiatric: as per Subjective / HPI Endocrine: as per Subjective / HPI Hematologic / Lymphatic: as per Subjective / HPI Allergy / Immunological: as per Subjective / HPI Physical Exam Constitutional: WD/WN, vitals as above + morbidly obese Eyes: + anicteric sclerae Neck: normal visual inspection Respiratory: normal respiratory effort, lungs clear to auscultation Cardiovascular: RRR, no murmur, no edema Gastrointestinal (Abdomen): normal bowel sounds, soft, nontender, no hepatosplenomegaly Skin: no rashes, warm and dry Psychiatric: A+Ox3, euthymic affect Results & Data ([facility]) Vital Signs (Past 12 Hours) Vital Signs Temp Pulse Pulse Resp BP Pulse Ox 03/08/21 08:00 36.9 C 73 18 123/60 96 03/08/21 05:08 62 18 119/67 98 03/08/21 03:00 69 16 96 03/07/21 21:28 72 20 121/71 96 PG Care Time/CCT Total # of Minutes Spent Total Time Spent with Patient: Total time spent is greater than 50% in coordination of care (as documented) at patient's floor/unit and/or counseling patient: Coding Level of Care Code 91233 Initial Inpt Care Lvl 3 Diagnoses Abdominal pain, epigastric R10.13 Heme positive stool R19.5 Supratherapeutic INR R79.1
--- NOTE | 2021-03-08 10:59 | Surgery Consultation ---
Date of Consultation March 08, 2021 Assessment & Plan (1) Abdominal pain: Small ventral/incision hernias may be the cause of his mild/baseline mid abdominal discomfort however this is not urgent or acute can be followed as an outpatient for elective repair. Also previous mesh repair not likely to be causing symptoms. Will continue to follow, monitor INR and has been seen by GI. With his myriad of problems not the least of which is a recent DVT and he is on Coumadin, I would prefer to wait until the GI bleed is completely worked up. The hernias have fat within them, not bowel so elective surgery could be placed on hold preferably until he is off the Coumadin which I suspect will be around 6 months. I will want to see him in a couple weeks after discharge from the hospital. History of Present Illness Attending Physician: Cornelius Judge DO History of Present Illness 75 y/o male with h/o gastric bypass 30 years ago and more recent COVID and RLE DVT within the past 3 weeks. He now presented with lower abdominal pain for a few weeks increasing over the past 4 or 5 days. Pain is across both sides of abdomen around to the back. Feels similar at times to past kidney stone. He has also had some blood in stool within the past few days. Has been about 6 years since his last colonoscopy although he had been on a 3 year surveillance program for polyps. No h/o known ulcer disease but he did have a GI bleed shortly after his bypass. He also had hernia repair of upper incision x2. Allergies Allergy/AdvReac Type Severity Reaction Status Date / Time amoxicillin Allergy Intermediate rash Verified 03/07/21 14:05 Penicillins Allergy Intermediate rash Verified 03/07/21 14:05 Home Medications Medication Instructions Recorded Confirmed Type meclizine 25 mg tablet 25 mg PO BID PRN #30 tab 04/09/20 03/07/21 Rx hydrochlorothiazide 25 mg tablet 25 mg PO DAILY #90 tab 04/25/20 03/07/21 Rx lisinopril 20 mg tablet 20 mg PO DAILY #90 tab 04/25/20 03/07/21 Rx pantoprazole 40 mg tablet,delayed 40 mg PO DAILY #90 tab 05/07/20 03/07/21 Rx release ferrous sulfate [Iron (ferrous 1 tab PO DAILY 06/03/20 03/07/21 History sulfate)] potassium chloride 20 mEq 20 meq PO DAILY #90 tab 11/05/20 03/07/21 Rx tablet,extended release(part/cryst) (Mickie-Danny M) fluoxetine 20 mg capsule 20 mg PO DAILY #180 cap 02/03/21 03/07/21 Rx warfarin 5 mg tablet 7.5 mg PO DAILY tab 02/20/21 03/07/21 History Patient History Medical History Asthma Benign esophageal stricture Degenerative arthritis of knee, bilateral DVT (deep venous thrombosis) Hypertension Lumbar spondylosis Pancreatitis Psoriasis Pulmonary emboli Trochanteric bursitis, right hip Surgical History S/P cholecystectomy S/P gastroplasty S/P hernia repair S/P tonsillectomy Family History Family/Other Hearing loss Paternal cousins Mother Hypertension Heart disease Other Myocardial infarction No family history of adverse response to anesthesia No family history of bleeding disorder Prostate cancer Denies family history of Ovarian cancer Breast cancer Colorectal cancer Social History Smoking Status: Never smoker Tobacco Type: Cigarettes packs per day: 1; Years Smoked: 25; Second Hand Exposure: No; Hx Alcohol Use: No Hx Substance Use: No Preferred Language: Sami Visual Impairment: No Limitations Hearing Ability: Normal 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 marital status: Current Living Situation: Spouse current occupational status: retired Feels Safe at Home: Yes Safety Concerns: Feels Safe At This Time Dental Care, Regularly: No Physical Activity Frequency: 1-2 Times per Week Physical Activity Frequency Comment: excerise arms Seatbelt Use: always Sunscreen Use: Yes Assistive Devices: Denture - Upper, Denture - Lower, Glasses, Hearing Aid - Left and Hearing Aid - Right Review of Systems Constitutional: no fever and no chills Gastrointestinal: + abdominal pain and + blood in stools; no nausea, no vomiting, no constipation and no diarrhea/loose stools Physical Exam Constitutional: + obese Respiratory: normal respiratory effort, lungs clear to auscultation Cardiovascular: RRR, no murmur, no edema Gastrointestinal (Abdomen): Inspection/Auscultation: + significant pannus and + abdominal surgical scar; no visible herniation Percussion/Palpation: abdomen soft; abdomen nontender Results & Data ([facility]) Vital Signs (Past 12 Hours) Vital Signs Temp Pulse Pulse Resp BP Pulse Ox 03/08/21 08:00 36.9 C 73 18 123/60 96 03/08/21 05:08 62 18 119/67 98 03/08/21 03:00 69 16 96 PG Care Time/CCT Total # of Minutes Spent Total Time Spent with Patient: Total time spent is greater than 50% in coordination of care (as documented) at patient's floor/unit and/or counseling patient: Coding Level of Care Code 87948 Initial Inpt Care Lvl 3 Diagnoses Abdominal pain R10.84 Abdominal location: generalized (1) Abdominal pain Abdominal location: generalized Qualified Code(s): R10.84 - Generalized abdominal pain
--- NOTE | 2021-03-10 08:58 | Discharge Summary ---
Date of Service March 08, 2021 Admission HPI Per Admitting Provider This patient is a 75-year-old male with history of HTN, obesity status post gastric bypass surgery, dyslipidemia, GERD, DVT/PE, JULIETTE, prediabetes and a recent Covid-19 infection (despite being fully vaccinated) for which he received Regeneron on 02/27/2021, who presents to the ER with abdominal pain and 1 day of dark black stools with some intermittent bright red blood. He was recently started on Coumadin for an acute right lower extremity DVT in the setting of taking Xarelto-this was considered a failure of Xarelto and he was switched to Coumadin on 02/12. His abdominal pain is diffuse and crampy in nature and is located across his lower abdomen and into his lower back bilaterally. He denies any blood in his urine, but does feel like this is somewhat similar to pain he experienced with kidney stones in the past. He has not had any fevers. He was Hemoccult positive in the ER as per ER physician's examination. The patient is worried that maybe his abdominal pain is coming from the mesh that he has had placed for his ventral hernia x2. As for his recent Covid infection, he feels completely better from that. He did experience diarrhea with having Covid but that has certainly slowed down. He has no shortness of breath except his chronic dyspnea x10 years, denies cough, no further fevers or body aches. In the ER, his hemoglobin was fortunately stable at 15.1, INR elevated at 4.3, and he had a mild non-anion gap metabolic acidosis with a serum bicarbonate of 19. His BUN was only minimally elevated at 22 and creatinine was up slightly from previous at 1.35. His LFTs, troponin were normal, and a repeat Covid-19 test was positive. He was Hemoccult positive on rectal exam as per ER physician. 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 His vital signs were within normal limits. He was not given vitamin K as he was hemodynamically stable, hemoglobin was normal, and he was recently diagnosed with a new DVT on 02/12/2021. He will be admitted for GI bleed in the setting of anticoagulation and recent DVT. Principal Diagnosis Dark stools, heme positive stool Supratherapeutic INR Abdominal pain Discharge Exam General: well developed, well nourished, morbidly obese male, no acute distress, comfortable Neck: supple, trachea midline, normal thyroid Lungs: clear to auscultation bilaterally, normal respiratory effort, no accessory muscle use, no distress Heart: regular S1 and S2, no murmur, peripheral pulses normal, capillary refill normal, no edema Abdomen: soft, NT, ND, + BS, no hepatomegaly, normal to percussion Extremities: normal in appearance, no cyanosis, no petechiae, strength is 5/5 bilaterally Neuro: awake, cooperative, moves all extremities, no focal motor deficits, CN II-XII intact, sensation in extremities intact, normal speech Skin: warm, dry, no rash, normal turgor, hematoma right lower leg, not tender Psych: Awake, alert oriented x 3, euthymic affect Discharge Data Allergies Allergy/AdvReac Type Severity Reaction Status Date / Time amoxicillin Allergy Intermediate rash Verified 03/07/21 14:05 Penicillins Allergy Intermediate rash Verified 03/07/21 14:05 Consultations 03/07/21 14:45 ED Decision to Admit Stat 03/07/21 17:07 Consult Gastroenterology Routine Consult General Surgery Routine Ordered Studies 03/07/21 12:15 CT abd pelvis IV con only Stat Hospital Course (1) GI bleed: Patient presents with dark stools and epigastric abdominal pain x1 day Fortunately hemoglobin is stable at 15. This is in the setting of taking Coumadin and his INR is supratherapeutic on arrival at 4.3 He does take ferrous sulfate which could turn his stool dark in color, however he reports there was some bright red blood in the water in the toilet as well He is hemodynamically stable Last EGD and colonoscopy were approximately 4 years ago at an outside facility in [place]-he recalls having some benign polyps but a normal EGD hemoglobin remained stable, 14 and then 14 had a stool again but was account liaison, no bright red blood appreciate GI consult, heme positive stool could be from having supratherapeutic INR GI would like to follow up with him in the clinic, get an EGD and colonoscopy stable for discharge, he wants to go home (2) Abdominal pain: Patient has both epigastric tenderness on examination which may be due to peptic ulcer disease as above, but he also complains of lower abdominal pain There is nothing to correlate with this on CT scan but he does have 2 ventral hernias which contain fat on imaging He has a history of mesh repair x2 for incisional hernia He has concerns that this may be causing his pain appreciate surgery consult from Dr. Patton he would not repair the hernias at this time, not emergent, only containing fate he will follow up with Dr. Patton in the clinic abdominal pain resolved at the time of discharge (3) Anticoagulated on Coumadin: As above, for history of recurrent VTE INR is still > 4 despite holding Coumadin this is new for him, has an appointment with the coagulation clinic on 03/09 will discharge him to home so he can make that appointment continue to hold Coumadin until he gets further instruction (4) Diarrhea: Secondary to Covid infection in the last several weeks Now improving (5) COVID-19: Started having symptoms approximately 16 days ago, is now outside the window for needing to quarantine and symptoms have all significantly improved He is not hypoxic and does not have pneumonia on chest x-ray -Does not need to be on Covid precautions for isolation (6) DVT (deep venous thrombosis): Diagnosed on 02/12 with DVT in the right popliteal vein and also in the right posterior tibial and peroneal veins This was in the setting of being on Xarelto He does have a history of gastric bypass and likely the Xarelto is not being absorbed very well He is also morbidly obese He is now on Coumadin as above INR is still > 4 follow up with coagulation clinic (7) Low bicarbonate level: Mildly low, nonanion gap metabolic acidosis Likely secondary to recent diarrhea and GI losses (8) Pre-diabetes: Hemoglobin A1c 6.0% earlier this year No medications for this (9) Personal history of gastric bypass: As noted above (10) Sleep apnea: May use CPAP from home (11) Morbid obesity: BMI 44.3 Needs weight loss-counseling given (12) Hypertension: Blood pressures are acceptable Continue home lisinopril (13) Asthma: States that he was told he longer has this diagnosis, but 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 is due to morbid obesity and he does not have asthma (14) GERD (gastroesophageal reflux disease): Continue Protonix as above (15) Depression: Continue home fluoxetine (16) Hematoma: Hematoma present in the right leg for the last several weeks after a trauma in the setting of anticoagulation With open wound it is going down in size, not tender, no signs of infection in surrounding skin DVT prophylaxis-INR is therapeutic on Coumadin Disposition- d/c to home Total Time Total Time Spent Total Time Spent (In Minutes): 34 minutes Discharge Plan Discharge Items Patient Disposition: Home - Self-Care Reason For Visit: GI BLEED Discharge Diagnosis: Supratherapeutic INR Dark stools but hemoglobin stable Condition on Discharge: Good Goals: follow up with coagulation clinic tomorrow Activity: Resume your previous activity Driving/Machine Use: No limitations Weightbearing: Full weightbearing Non-emergency contact: Primary Care Provider Call non-emergency contact if: you have any medication questions Follow-up/Referrals: Amirah Lopez CRNP [Primary Care Provider] - (one week) Henry Hayden DO [Physician] - (several weeks for EGD, colonoscopy) Ever Patton DO [Surgeon] - (several weeks) Diet: Regular Addtl Attending Provider Instructions: please follow up with coagulation clinic tomorrow for instructions on Coumadin dosing GI and surgery would like to follow up in the clinic, nothing urgent at this time your hemoglobin is stable at 14 for three draws Pending Studies at Discharge: No Stand-Alone Forms: My [employer], Smoking Cessation Medications and DC Order Prescriptions: Continued hydrochlorothiazide 25 mg tablet 25 mg PO DAILY Qty: 90 RF: 3 lisinopril 20 mg tablet 20 mg PO DAILY Qty: 90 RF: 3 pantoprazole 40 mg tablet,delayed release (DR/EC) 40 mg PO DAILY Qty: 90 RF: 3 Klor-Con M20 20 mEq tablet,ER particles/crystals 20 meq PO DAILY Qty: 90 RF: 3 fluoxetine 20 mg capsule 20 mg PO DAILY Qty: 180 RF: 3 meclizine 25 mg tablet 25 mg PO BID PRN (Reason: dizziness) Qty: 30 RF: 0 ferrous sulfate 1 tab PO DAILY RF: 0 Discontinued warfarin 5 mg tablet 7.5 mg PO DAILY RF: 0 No Action warfarin 5 mg tablet 5 mg PO DAILY RF: 0 Discharge Orders: Discharge Order (Routine); Ordered 03/08/21 Ordered By: Cornelius Judge Admission Data Admit Date/Time: 03/07/21 17:47 Attending Provider: Cornelius Judge Admit Provider: Sri Calderon Primary Care Provider: Amirah Lopez Other Providers: Henry Hayden ; Ever Patton ; Sri Calderon Other Interventions: Discharge Summary Assessment (RN) Last Done: 03/08/21 17:15 Coding Level of Care Code D/C DAY MANAGEMENT >30 MINS Diagnoses GI bleed K92.2 GI bleed type/associated pathology: unspecified gastrointestinal hemorrhage type Abdominal pain R10.84 Abdominal location: generalized Anticoagulated on Coumadin Z79.01 Diarrhea R19.7 COVID-19 U07.1 DVT (deep venous thrombosis) I82.409 Affected thrombotic vein of extremity: unspecified vein of extremity Chronicity: acute DVT location: lower extremity Laterality: unspecified laterality Low bicarbonate level E87.8 Pre-diabetes R73.03 Personal history of gastric bypass Z98.84 Sleep apnea G47.30 Morbid obesity E66.01 Hypertension I10 Asthma J45.909 GERD (gastroesophageal reflux disease) K21.9 Depression F32.9 Hematoma T14.8XXA
== END 2021-03-08 17:15 | disposition home or self-care (01) ==
LOC: INTOOBSV 17:47 → EDINP 17:47 → SUATTDRO 17:47 → EDINP 20:07

== ENCOUNTER 2022-09-11 23:28 | Inpatient (IN) ==
[2022-09-11] MEDS ORDERED: SODIUM CHLORIDE 0.9% 1000ML 500 ML IV ONE (23:44)
--- NOTE | 2022-09-11 23:47 | Emergency Department Note ---
Impression & Plan Intractable abdominal pain ED Provider Note Name: PANCHO SADNHU Age: 77 Sex: M Arrives Via: Walk-In Informant: Patient ED Provider: Norberto Michaud MD Chief Complaint: Left-sided abdominal pain Impression: As per impressions above Medical Decision Makin-year-old gentleman with a history of gastric bypass, obesity, DVT/PE, diabetes, GERD amongst others arrives for evaluation of worsening left-sided abdominal pain which is gradually becoming more epigastric in nature. He does not have any overt peritonitis but does have tenderness in these areas. Laboratory work-up was obtained and unfortunately was also delay not only getting the labs but then once the CT was ordered it took almost 3 hours to get the reads done. Throughout this patient was uncomfortable but declining pain medications though as the night went on he requested that some pain meds being given. He was given 0.5 mg IV Dilaudid and did quickly drop his sats but was not obtunded so Narcan was not given and it resolved with nasal cannula O2. Laboratory work-up is benign and the CT read is negative as well. I do not have a good cause of this patient's pain but given he is still uncomfortable and is hypoxic on narcotics I do not think it would be safe to send him home. He does not have peritonitis and we will hold off on getting surgical evaluation at this time. Patient does have some blood in his urine but is on an anticoagulant and I do not see any evidence of renal stone on the imaging at this time. Prior Medical Record and Triage/Nursing Notes reviewed by Me External chart reviewed by me Differentials:Renal colic, pyelonephritis, aortic dissection/rupture, diverticulitis, pancreatitis, ischemic bowel amongst others. Vital Signs: reviewed and remarkable for no significant abnormalities Interventions: Dilaudid 0.5 mg IV, normal saline bolus IV, Zofran 4 mg IV Labs:Reviewed and remarkable for no significant abnormalities Imaging:CT of the abdomen pelvis with IV contrast as per my informal interpretation reveals no evidence of bowel obstruction, free fluid or free air. Per radiologist there is no acute findings noted. Consults:Dr. Terry HARVEY Hospitalist Plan: Disposition:Hospitalization. Condition: Good History of Present Illness:77-year-old gentleman arrives for evaluation of abdominal pain. Patient notes about 24 hours of left-sided abdominal pain which is gradually becoming epigastric. Severe pain with eating or drinking. Mild pain with movement. Denies any nausea vomiting, fevers, chills, chest pain, shortness of breath, back pain, urinary/bowel symptoms. He denies any black or bloody stools and states he had a normal brown bowel movement prior to arrival. He took 2 Tylenol prior to arrival with some improvement in his pain and declines any pain medications at this time. No falls, trauma, injuries. Patient does have a history of pancreatitis which she notes this does seem somewhat similar to Past History:See Below Home Medications:See Below Allergies:amox, penicillin Vitals:Blood Pressure: 162/94, Pulse 88, RR 20, T 36.4C, O2 94% on RA Physical Exam: GENERAL: Patient is mildly uncomfortable appearing and in minimal distress. RESPIRATORY: No dyspnea. Clear to auscultation and equal bilaterally. No wheeze, no rhonchi. CARDIOVASCULAR: Regular rate and rhythm.No murmurs, rubs, gallops appreciated. GASTROINTESTINAL: Moderate epigastric tenderness palpation, mild left upper quadrant tenderness palpation, no peritonitis, normal bowel sounds EXTREMITIES: Normal motion all extremities, no cyanosis, no edema. NEUROLOGIC: Alert and oriented SKIN: No rash, no jaundice, no diaphoresis. PSYCH: Appropriate GCS: 15 ED Course: Times/Reassessments: Patient with continued discomfort eventually requiring IV narcotics. He did become a bit hypoxic with this. Due to uncertain etiology of pain continued and worsening pain on the left side despite extensive work-up which is essentially unremarkable patient will be hospitalized and he is on board with this plan. Norberto Michaud MD Past Med/Surg History Medical History Anemia Completed EGD/Colonoscopy 2021, Iron Replacement Asthma inhaler prn Benign esophageal stricture Benign hypertension (08/13/12) COVID-19 diagnosed 02/24/21 @ [place]--trouble breathing, fever, fatigue, loss of appetite, diarrhea--no issues now Degenerative arthritis of knee, bilateral Diabetes mellitus, type 2 diet controlled Dyspnea Encounter for pre-operative examination Fatty infiltration of liver Generalized osteoarthritis GERD (gastroesophageal reflux disease) Hearing deficit Hiatal hernia History of colitis History of kidney stones Hx of deep venous thrombosis RIGHT CALF ~4-5 YRS AGO, COUMADIN DAILY Hx of pancreatitis Hx pulmonary embolism (~2015) ~14 YRS AGO- NO ISSUES SINCE Hypertension Left sided abdominal pain Lumbar spondylosis Lymphedema Macular degeneration Metabolic syndrome Morbid obesity BMI 45.8% Osteoarthritis Psoriasis Psoriatic arthritis Scoliosis Sleep apnea Restarted CPAP SNHL (sensorineural hearing loss) Traumatic open wound of left lower leg hit thompson on recliner causing a hematoma that started bleeding, was seen and treated at [facility] 07/15/22 Venous insufficiency Surgical History History of bilateral cataract extraction History of cardiac cath roughly 8yrs ago @ [facility]--no stents History of colonoscopy 06/2021 Repeat 3 yrs History of esophagogastroduodenoscopy (EGD) (~06/2021) History of tooth extraction all teeth removed S/P cholecystectomy S/P gastroplasty S/P hernia repair incisional hernia S/P tonsillectomy Family History Family/Other Hearing loss Paternal cousins Mother Heart disease Hypertension Family history of reaction to anesthesia difficulty waking after surgery Other Myocardial infarction No family history of bleeding disorder Prostate cancer Denies family history of Ovarian cancer Breast cancer Colorectal cancer Social History Smoking Status: Former smoker Tobacco Type: Cigarettes Age Started Using Tobacco: 16; Age Quit Using Tobacco: 30; packs per day: 1; Cigarettes Per Day: QUIT ~45 YRS AGO; Second Hand Exposure: No; Do You Dip or Chew Tobacco: No; Hx Alcohol Use: No Hx Substance Use: No Preferred Language: Monegasque Communication Ability: Effective Visual Impairment: Limited Hearing Ability: Use of Hearing Aid High Density Finishing Operator Required: No Beliefs That Will Affect Care: Adventism Adventism Beliefs: Cheondoism marital status: Current Living Situation: Significant Other current occupational status: retired How many Children do You have: 1 Feels Safe at Home: Yes Safety Concerns: Feels Safe At This Time Childhood Exposure to Second-Hand Smoke: Yes Diet: regular caffeine: No Dental Care, Regularly: No Physical Activity Frequency: 1-2 Times per Week Physical Activity Frequency Comment: excerise arms Seatbelt Use: always Sunscreen Use: Yes Assistive Devices: Cane, Walker and Wheelchair Allergies Allergies Allergy/AdvReac Type Severity Reaction Status Date / Time amoxicillin Allergy Intermediate rash Verified 09/03/22 13:10 Penicillins Allergy Intermediate rash Verified 09/03/22 13:10 Home Meds Home Medications Medication Instructions Recorded Confirmed ferrous sulfate 325 mg (65 mg 325 mg PO QDL 04/20/21 09/12/22 iron) tablet acetaminophen 500 mg capsule See Rx Instructions PO ONCE 11/02/21 09/12/22 Saccharomyces boulardii 250 mg 250 mg PO QAM 06/28/22 09/12/22 capsule (Daily Probiotic (S. boulardii)) duloxetine 40 mg capsule,delayed 40 mg PO DAILY 08/10/22 09/12/22 release warfarin 5 mg tablet See Rx Instructions PO UD 08/17/22 09/12/22 Previous Rx's Medication Instructions Recorded secukinumab 150 mg/mL subcutaneous 300 mg (2 mL) subcut .COMPLEX #6 mL 03/22/22 pen injector (Cosentyx Pen 300 mg/2 Pens () hydrochlorothiazide 25 mg tablet 25 mg PO QAM #90 tabs 05/03/22 lisinopril 20 mg tablet 20 mg PO QAM #90 tabs 05/03/22 potassium chloride 20 mEq 20 meq PO QAM #90 tabs 05/03/22 tablet,extended release(part/cryst) (Klor-Con M) gabapentin 300 mg capsule 300 mg PO TID #90 caps 05/07/22 pantoprazole 40 mg tablet,delayed 40 mg PO QAM #90 tabs 07/22/22 release semaglutide 0.25 mg or 0.5 mg (2 0.5 mg (0.8 mL) subcut .weekly #3 08/10/22 mg/3 mL) subcutaneous pen injector mL (Ozempic) Results & Data (ED) Vital Signs Vital Signs - 24 hr 09/11/22 23:33 09/12/22 00:39 09/12/22 02:03 Temperature 36.4 C L Temperature Source Oral Pulse Rate 88 Pulse Rate [Apical] 57 L 63 Pulse Rate from SpO2 Sensor Respiratory Rate 20 18 20 Respiratory Effort / Characteristics Non-Labored Spontaneous Respiratory Depth Normal Respiratory Pattern Regular Blood Pressure 162/94 H Blood Pressure [Right Arm] 155/81 H 134/75 Blood Pressure Mean 116 Blood Pressure Mean [Right Arm] 105 94 Blood Pressure Position Sitting Pulse Oximetry 94 95 97 Oxygen Delivery Method Room Air Room Air Room Air Sepsis Recent Fever Within 48 Hours No Sepsis New/Unexplained Change in Mental Status N/A Sepsis Action Taken by Nursing No Action Required 09/12/22 02:03 09/12/22 02:03 09/12/22 02:30 Temperature Temperature Source Pulse Rate 62 63 Pulse Rate [Apical] Pulse Rate from SpO2 Sensor 63 53 L Respiratory Rate 16 18 Respiratory Effort / Characteristics Respiratory Depth Respiratory Pattern Blood Pressure 134/75 Blood Pressure [Right Arm] Blood Pressure Mean 96 Blood Pressure Mean [Right Arm] Blood Pressure Position Pulse Oximetry 97 98 Oxygen Delivery Method Sepsis Recent Fever Within 48 Hours Sepsis New/Unexplained Change in Mental Status Sepsis Action Taken by Nursing 09/12/22 04:35 09/12/22 05:46 09/12/22 06:37 Temperature Temperature Source Pulse Rate 66 52 L Pulse Rate [Apical] Pulse Rate from SpO2 Sensor 63 61 Respiratory Rate 18 13 Respiratory Effort / Characteristics Respiratory Depth Respiratory Pattern Blood Pressure 131/83 166/94 H Blood Pressure [Right Arm] Blood Pressure Mean 99 118 Blood Pressure Mean [Right Arm] Blood Pressure Position Pulse Oximetry 95 98 Oxygen Delivery Method Sepsis Recent Fever Within 48 Hours Sepsis New/Unexplained Change in Mental Status Sepsis Action Taken by Nursing 09/12/22 06:56 09/12/22 08:17 Temperature Temperature Source Pulse Rate Pulse Rate [Apical] 53 L 70 Pulse Rate from SpO2 Sensor Respiratory Rate 16 18 Respiratory Effort / Characteristics Respiratory Depth Respiratory Pattern Blood Pressure Blood Pressure [Right Arm] 149/78 H 145/73 H Blood Pressure Mean Blood Pressure Mean [Right Arm] 101 97 Blood Pressure Position Pulse Oximetry 99 99 Oxygen Delivery Method Room Air Sepsis Recent Fever Within 48 Hours Sepsis New/Unexplained Change in Mental Status Sepsis Action Taken by Nursing Laboratory Data 09/11/22 00:00 09/11/22 00:00 Lab Results 09/11/22 09/11/22 09/12/22 Range/Units 00:00 00:00 00:00 WBC 6.75 (4.8-10.8) K/ul RBC 5.07 (4.70-6.10) M/uL Hgb 14.3 (14.0-18.0) g/dl Hct 43.9 (42.0-52.0) % MCV 86.6 (80.0-100.0) fL MCH 28.2 (25.0-34.0) pg MCHC 32.6 (32.0-36.0) g/dL RDW Std Deviation 45.3 (36.4-46.3) fL RDW Coeff of Monique 14.5 (11.5-14.5) % Plt Count 168 (130-400) K/uL MPV 10.2 (9.4-12.4) fL Immature Gran % (Auto) 0.4 % Neut % (Auto) 67.9 % Lymph % (Auto) 19.6 % [place] % (Auto) 8.9 % Eos % (Auto) 2.8 % Baso % (Auto) 0.4 % Neut # (Auto) 4.58 (1.40-6.50) K/uL Lymph # (Auto) 1.32 (1.2-3.4) K/uL [place] # (Auto) 0.60 H (0.11-0.59) K/uL Eos # (Auto) 0.19 (0-0.50) K/uL Baso # (Auto) 0.03 (0-0.2) K/uL Immature Gran # (Auto) 0.03 (0.01-0.20) K/uL PT 40.2 H (9.0-12.0) Seconds INR 4.0 H (0.9-1.1) APTT 46.2 H* (21.0-31.0) Seconds PTT Ratio 1.6 Sodium 141 (136-145) mmol/L Potassium 3.4 L (3.5-5.1) mmol/L Chloride 109 H (98-107) mmol/L Carbon Dioxide 25 (21-32) mmol/L Anion Gap 7 (3-11) BUN 10 (6-23) mg/dl Creatinine 1.03 (0.6-1.4) mg/dl Est Cr Clr Drug Dosing 86.6 ml/min Est GFR ( Amer) 81.4 ml/min Est GFR (Non-Af Amer) 70.2 ml/min BUN/Creatinine Ratio 9.7 L (10-20) Glucose 131 H (70-99(Fasting)) mg/dl Calcium 8.4 L (8.6-10.3) mg/dl Magnesium 1.9 (1.7-2.4) mg/dl Total Bilirubin 0.5 (0.2-1.0) mg/dl Direct Bilirubin 0.1 (0-0.2) mg/dl AST 20 (13-39) U/L ALT 18 (7-52) U/L Alkaline Phosphatase 79 (34-104) U/L Total Protein 6.4 (6.0-8.3) gm/dl Albumin 3.5 (3.4-5.0) gm/dl Lipase 23 (11-82) U/L Urine Color Urine Appearance (Clear) Urine pH (4.5-7.5) Ur Specific [place] (1.000-1.030) Urine Protein (Negative) Urine Glucose (UA) (Negative) Urine Ketones (Negative) Urine Blood (Negative) Urine Nitrite (Negative) Urine Bilirubin (Negative) Urine Urobilinogen (Negative) Ur Leukocyte Esterase (Negative) Urine WBC (Auto) (0-5) /hpf Urine RBC (Auto) (0-4) /hpf U Hyaline Cast (Auto) (0-5) /lpf U Epithel Cells (Auto) (0-5) /lpf Urine Bacteria (Auto) (Negative) Hepatitis C Ab (EIA) (NON-REACTIVE) Hep C Ab Signal/Cutoff (<1.00) SARS-CoV-2, RNA, NAAT (NEGATIVE) 09/12/22 09/12/22 09/12/22 Range/Units 00:55 07:00 19:28 WBC (4.8-10.8) K/ul RBC (4.70-6.10) M/uL Hgb (14.0-18.0) g/dl Hct (42.0-52.0) % MCV (80.0-100.0) fL MCH (25.0-34.0) pg MCHC (32.0-36.0) g/dL RDW Std Deviation (36.4-46.3) fL RDW Coeff of Monique (11.5-14.5) % Plt Count (130-400) K/uL MPV (9.4-12.4) fL Immature Gran % (Auto) % Neut % (Auto) % Lymph % (Auto) % [place] % (Auto) % Eos % (Auto) % Baso % (Auto) % Neut # (Auto) (1.40-6.50) K/uL Lymph # (Auto) (1.2-3.4) K/uL [place] # (Auto) (0.11-0.59) K/uL Eos # (Auto) (0-0.50) K/uL Baso # (Auto) (0-0.2) K/uL Immature Gran # (Auto) (0.01-0.20) K/uL PT 33.7 H (9.0-12.0) Seconds INR 3.3 H (0.9-1.1) APTT (21.0-31.0) Seconds PTT Ratio Sodium (136-145) mmol/L Potassium (3.5-5.1) mmol/L Chloride (98-107) mmol/L Carbon Dioxide (21-32) mmol/L Anion Gap (3-11) BUN (6-23) mg/dl Creatinine (0.6-1.4) mg/dl Est Cr Clr Drug Dosing ml/min Est GFR ( Amer) ml/min Est GFR (Non-Af Amer) ml/min BUN/Creatinine Ratio (10-20) Glucose (70-99(Fasting)) mg/dl Calcium (8.6-10.3) mg/dl Magnesium (1.7-2.4) mg/dl Total Bilirubin (0.2-1.0) mg/dl Direct Bilirubin (0-0.2) mg/dl AST (13-39) U/L ALT (7-52) U/L Alkaline Phosphatase (34-104) U/L Total Protein (6.0-8.3) gm/dl Albumin (3.4-5.0) gm/dl Lipase (11-82) U/L Urine Color Yellow Urine Appearance Cloudy A (Clear) Urine pH 6.0 (4.5-7.5) Ur Specific [place] 1.018 (1.000-1.030) Urine Protein 1+ H (Negative) Urine Glucose (UA) Negative (Negative) Urine Ketones Trace H (Negative) Urine Blood 3+ H (Negative) Urine Nitrite Negative (Negative) Urine Bilirubin Negative (Negative) Urine Urobilinogen Negative (Negative) Ur Leukocyte Esterase Negative (Negative) Urine WBC (Auto) 1-5 (0-5) /hpf Urine RBC (Auto) >30 H (0-4) /hpf U Hyaline Cast (Auto) 5-10 H (0-5) /lpf U Epithel Cells (Auto) >30 H (0-5) /lpf Urine Bacteria (Auto) Negative (Negative) Hepatitis C Ab (EIA) (NON-REACTIVE) Hep C Ab Signal/Cutoff (<1.00) SARS-CoV-2, RNA, NAAT NEGATIVE (NEGATIVE) 09/13/22 Range/Units 07:26 WBC (4.8-10.8) K/ul RBC (4.70-6.10) M/uL Hgb (14.0-18.0) g/dl Hct (42.0-52.0) % MCV (80.0-100.0) fL MCH (25.0-34.0) pg MCHC (32.0-36.0) g/dL RDW Std Deviation (36.4-46.3) fL RDW Coeff of Monique (11.5-14.5) % Plt Count (130-400) K/uL MPV (9.4-12.4) fL Immature Gran % (Auto) % Neut % (Auto) % Lymph % (Auto) % [place] % (Auto) % Eos % (Auto) % Baso % (Auto) % Neut # (Auto) (1.40-6.50) K/uL Lymph # (Auto) (1.2-3.4) K/uL [place] # (Auto) (0.11-0.59) K/uL Eos # (Auto) (0-0.50) K/uL Baso # (Auto) (0-0.2) K/uL Immature Gran # (Auto) (0.01-0.20) K/uL PT (9.0-12.0) Seconds INR (0.9-1.1) APTT (21.0-31.0) Seconds PTT Ratio Sodium (136-145) mmol/L Potassium (3.5-5.1) mmol/L Chloride (98-107) mmol/L Carbon Dioxide (21-32) mmol/L Anion Gap (3-11) BUN (6-23) mg/dl Creatinine (0.6-1.4) mg/dl Est Cr Clr Drug Dosing ml/min Est GFR ( Amer) ml/min Est GFR (Non-Af Amer) ml/min BUN/Creatinine Ratio (10-20) Glucose (70-99(Fasting)) mg/dl Calcium (8.6-10.3) mg/dl Magnesium (1.7-2.4) mg/dl Total Bilirubin (0.2-1.0) mg/dl Direct Bilirubin (0-0.2) mg/dl AST (13-39) U/L ALT (7-52) U/L Alkaline Phosphatase (34-104) U/L Total Protein (6.0-8.3) gm/dl Albumin (3.4-5.0) gm/dl Lipase (11-82) U/L Urine Color Urine Appearance (Clear) Urine pH (4.5-7.5) Ur Specific [place] (1.000-1.030) Urine Protein (Negative) Urine Glucose (UA) (Negative) Urine Ketones (Negative) Urine Blood (Negative) Urine Nitrite (Negative) Urine Bilirubin (Negative) Urine Urobilinogen (Negative) Ur Leukocyte Esterase (Negative) Urine WBC (Auto) (0-5) /hpf Urine RBC (Auto) (0-4) /hpf U Hyaline Cast (Auto) (0-5) /lpf U Epithel Cells (Auto) (0-5) /lpf Urine Bacteria (Auto) (Negative) Hepatitis C Ab (EIA) NON-REACTIVE (NON-REACTIVE) Hep C Ab Signal/Cutoff 0.03 (<1.00) SARS-CoV-2, RNA, NAAT (NEGATIVE) Administered Medications Acetaminophen (Acetaminophen 325 Mg Tab) 650 mg PO Q6H [facility] Stop: 10/14/22 15:59 Last Admin: 09/14/22 16:12 Dose: 650 mg Documented By: MARGARITA Duloxetine HCl (Duloxetine Hcl 20 Mg Cap) 40 mg PO DAILY LEV Stop: 10/12/22 10:44 Last Admin: 09/14/22 08:20 Dose: 40 mg Documented By: Admin: 09/13/22 09:32 Dose: 40 mg Documented By: Admin: 09/12/22 11:03 Dose: 40 mg Documented By: TORIBIO Gabapentin (Gabapentin 300 Mg Cap) 300 mg PO TID LEV Stop: 10/12/22 10:44 Last Admin: 09/14/22 13:07 Dose: 300 mg Documented By: Admin: 09/14/22 08:20 Dose: 300 mg Documented By: Admin: 09/13/22 23:23 Dose: 300 mg Documented By: Admin: 09/13/22 13:29 Dose: 300 mg Documented By: Admin: 09/13/22 09:13 Dose: 300 mg Documented By: Admin: 09/12/22 22:02 Dose: 300 mg Documented By: Admin: 09/12/22 13:54 Dose: 300 mg Documented By: Admin: 09/12/22 11:03 Dose: 300 mg Documented By: TORIBIO Potassium Chloride (K Douglas / Wtr) 10 meq in 100 mls @ 100 mls/hr IV Q1H LEV Stop: 09/14/22 17:59 Last Admin: 09/14/22 17:18 Dose: 100 mls/hr Documented By: Infusion: 09/14/22 17:07 Dose: 100 mls/hr Documented By: Admin: 09/14/22 16:07 Dose: 100 mls/hr Documented By: MARGARITA Lisinopril (Lisinopril 20 Mg Tab) 20 mg PO QAM [facility] Stop: 10/12/22 10:44 Last Admin: 09/14/22 08:21 Dose: 20 mg Documented By: Admin: 09/13/22 09:14 Dose: 20 mg Documented By: Admin: 09/12/22 11:04 Dose: 20 mg Documented By: TORIBIO Ondansetron HCl (Ondansetron Inj 2 Mg/Ml 2 Ml Vial) 4 mg IV Q6H PRN PRN Reason: Nausea And Vomiting Stop: 10/12/22 16:14 Last Admin: 09/13/22 23:23 Dose: 4 mg Documented By: Admin: 09/12/22 17:22 Dose: 4 mg Documented By: BASIA Sucralfate (Sucralfate 1 Gm/10 Ml Udc) 1 gm PO QID LEV Stop: 10/12/22 08:59 Last Admin: 09/14/22 16:13 Dose: 1 gm Documented By: Admin: 09/14/22 13:08 Dose: 1 gm Documented By: Admin: 09/14/22 08:20 Dose: 1 gm Documented By: Admin: 09/13/22 22:52 Dose: 1 gm Documented By: Admin: 09/13/22 17:01 Dose: 1 gm Documented By: Admin: 09/13/22 13:30 Dose: 1 gm Documented By: Admin: 09/13/22 09:14 Dose: 1 gm Documented By: Admin: 09/12/22 22:02 Dose: 1 gm Documented By: Admin: 09/12/22 17:18 Dose: 1 gm Documented By: Admin: 09/12/22 13:54 Dose: 1 gm Documented By: Admin: 09/12/22 08:12 Dose: 1 gm Documented By: NILDA Discontinued Medications Famotidine (Famotidine 20mg/5ml Iv Push) Confirm Administered Dose 20 mg IV .STK-MED ONE Stop: 09/12/22 08:11 Last Admin: 09/12/22 08:12 Dose: 20 mg Documented By: NILDA Hydromorphone HCl (Hydromorphone Inj 0.5 Mg/0.5 Ml Syr) 0.5 mg IV Q15M PRN PRN Reason: Pain Stop: 09/26/22 05:38 Last Admin: 09/12/22 11:51 Dose: 0.5 mg Documented By: Admin: 09/12/22 05:52 Dose: 0.5 mg Documented By: ANKITA Sodium Chloride (Nss 1000ml) 500 mls @ 999 mls/hr IV .Q31M ONE Stop: 09/12/22 00:14 Last Infusion: 09/12/22 00:29 Dose: 0 mls/hr Documented By: Admin: 09/11/22 23:56 Dose: 999 mls/hr Documented By: RAVEN Famotidine 20 mg/ Syringe 5 mls @ 2.5 mls/min IV BID LEV Stop: 10/12/22 08:59 Last Admin: 09/14/22 08:23 Dose: 2.5 mls/min Documented By: Admin: 09/13/22 21:04 Dose: 2.5 mls/min Documented By: Admin: 09/13/22 09:13 Dose: 2.5 mls/min Documented By: Admin: 09/12/22 22:03 Dose: 2.5 mls/min Documented By: Admin: 09/12/22 08:16 Dose: Not Given Documented By: NILDA Lactated Ringer's (Lr) 1,000 mls @ 80 mls/hr IV .[id number] [facility] Stop: 10/12/22 07:59 Last Admin: 09/14/22 13:41 Dose: Not Given Documented By: Infusion: 09/14/22 13:39 Dose: 0 mls/hr Documented By: Infusion: 09/14/22 10:43 Dose: 80 mls/hr Documented By: Infusion: 09/14/22 08:23 Dose: 0 mls/hr Documented By: Admin: 09/14/22 01:18 Dose: 80 mls/hr Documented By: Infusion: 09/14/22 01:18 Dose: 80 mls/hr Documented By: Admin: 09/13/22 13:30 Dose: 80 mls/hr Documented By: Infusion: 09/13/22 13:22 Dose: 80 mls/hr Documented By: Admin: 09/13/22 00:52 Dose: 80 mls/hr Documented By: Infusion: 09/13/22 00:52 Dose: 0 mls/hr Documented By: Admin: 09/12/22 08:12 Dose: 80 mls/hr Documented By: NILDA Potassium Chloride (K Douglas / Wtr) 10 meq in 100 mls @ 100 mls/hr IV ONE ONE Stop: 09/13/22 19:10 Last Infusion: 09/13/22 19:44 Dose: 0 mls/hr Documented By: Admin: 09/13/22 18:44 Dose: 100 mls/hr Documented By: JESSICA Ioversol (Optiray 320 100ml) 87 ml IV ONCE ONE Stop: 09/12/22 02:47 Last Admin: 09/12/22 02:47 Dose: 87 ml Documented By: CARLA Lidocaine HCl (Lidocaine 2% 2 Ml Vial/Amp(20mg/Ml)) Confirm Administered Dose 6 ml INFIL .STK-MED ONE Stop: 09/14/22 09:31 Last Admin: 09/14/22 11:18 Dose: Not Given Documented By: MARGARITA Ondansetron HCl (Ondansetron Inj 2 Mg/Ml 2 Ml Vial) 4 mg IV NOW STA Stop: 09/12/22 05:40 Last Admin: 09/12/22 05:52 Dose: 4 mg Documented By: ANKITA Phytonadione (Phytonadione 5 Mg Tab) 5 mg PO NOW STA Stop: 09/12/22 16:46 Last Admin: 09/12/22 17:18 Dose: 5 mg Documented By: BASIA Phytonadione (Phytonadione 5 Mg Tab) 5 mg PO NOW STA Stop: 09/13/22 18:11 Last Admin: 09/13/22 18:38 Dose: 5 mg Documented By: JESSICA Propofol (Propofol Iv Emulsion 10 Mg/Ml 20 Ml Vial) Confirm Administered Dose 400 mg IV .STK-MED ONE Stop: 09/14/22 09:31 Last Admin: 09/14/22 11:19 Dose: Not Given Documented By: MARGARITA Imaging Data Radiologist's Impression: Abdomen/Pelvis CT 09/12/22 02:16 Exam(s): CT ABDOMEN + PELVIS With Contrast IV Amt: 87 cc's EXAM: CT Abdomen and Pelvis With Intravenous Contrast CLINICAL HISTORY: Left flank pain. TECHNIQUE: Axial computed tomography images of the abdomen and pelvis with intravenous contrast. CTDI is 38.24 mGy and DLP is 2056.97 mGy-cm. Automated exposure control was utilized for the study. A dose lowering technique was utilized adhering to the principles of ALARA. CONTRAST: Patient received 87 cc's of IV contrast COMPARISON: CT abdomen and pelvis 06/02/2022 FINDINGS: Lung bases: Unremarkable. No mass. No consolidation. ABDOMEN: Liver: Unremarkable. No mass. Gallbladder and bile ducts: Cholecystectomy. No ductal dilation. Pancreas: Unremarkable. No mass. No ductal dilation. Spleen: Unremarkable. No splenomegaly. Adrenals: Unremarkable. No mass. Kidneys and ureters: Stable appearance of the right kidney. The left is within normal limits. No hydronephrosis. Stomach and bowel: There are surgical changes of the stomach. The excluded stomach lumen is debris filled. No obstruction. No mucosal thickening. PELVIS: Appendix: No findings to suggest acute appendicitis. Bladder: Unremarkable. No mass. Reproductive: Unremarkable as visualized. ABDOMEN and PELVIS: Intraperitoneal space: Unremarkable. No free air. No significant fluid collection. Bones/joints: There are degenerative changes of the spine. No fracture. No dislocation. Soft tissues: Small fat-containing umbilical hernia. Vasculature: Minimal atherosclerosis. No abdominal aortic aneurysm. Lymph nodes: Unremarkable. No enlarged lymph nodes. IMPRESSION: There are surgical changes of the stomach. The excluded stomach lumen is debris filled. Electronically signed by: Meche Valenzuela MD 09/12/22 05:49 AM Discharge Plan Visit Data Chief Complaint: Abdominal Pain Stated Complaint: LEFT ABDOMINAL PAIN ED Provider: Norberto Michaud Discharge Problem: Intractable abdominal pain Patient Disposition: Admitted As Inpatient Discharge Instructions Interventions: ED Discharge Assessment Last Done: 09/12/22 15:00
[2022-09-12 00:37] LABS: Albumin Level 3.5 gm/dl (3.4-5.0); BUN Creatinine Ratio 9.7 (10-20); Bilirubin Direct 0.1 mg/dl (0-0.2); Bilirubin,Total 0.5 mg/dl (0.2-1.0); Calcium 8.4 mg/dl (8.6-10.3); Creatinine Clr Calc Pharmacy 86.6 ml/min; Est GFR (African American) 81.4 ml/min; Est GFR (Non-African American) 70.2 ml/min; Magnesium 1.9 mg/dl (1.7-2.4); Potassium 3.4 mmol/L (3.5-5.1); Total Protein 6.4 gm/dl (6.0-8.3)
[2022-09-12 00:41] LABS: Basophils # (auto) 0.03 K/uL (0-0.2); Basophils % (auto) 0.4 %; Eosinophils # (auto) 0.19 K/uL (0-0.50); Eosinophils % (auto) 2.8 %; Hematocrit (blood only) 43.9 % (42.0-52.0); Hemoglobin 14.3 g/dl (14.0-18.0); Immature Granulocytes # (auto) 0.03 K/uL (0.01-0.20); Immature Granulocytes % (auto) 0.4 %; Lymphocytes # (auto) 1.32 K/uL (1.2-3.4); Lymphocytes % (auto) 19.6 %; Mean Corpuscular Hemoglobin 28.2 pg (25.0-34.0); Mean Corpuscular Hgb Conc 32.6 g/dL (32.0-36.0); Mean Corpuscular Volume 86.6 fL (80.0-100.0); Mean Platelet Volume 10.2 fL (9.4-12.4); Monocytes % (auto) 8.9 %; Neutrophils # (auto) 4.58 K/uL (1.40-6.50); Neutrophils % (auto) 67.9 %; Platelet Count 168 K/uL (130-400); RDW Coefficient of Variation 14.5 % (11.5-14.5); RDW Standard Deviation 45.3 fL (36.4-46.3); Red Blood Count 5.07 M/uL (4.70-6.10); White Blood Count 6.75 K/ul (4.8-10.8)
[2022-09-12 01:20] LABS: Appearance Urine Cloudy (Clear); Bacteria Urine Automated Negative (Negative); Bilirubin Urine Negative (Negative); Blood Urine 3+ (Negative); Color Urine Yellow; Epithelial Cell Urine Auto >30 /lpf (0-5); Glucose Urine UA Negative (Negative); Ketones Urine Trace (Negative); Leukocyte Esterase Urine Negative (Negative); Nitrite Urine Negative (Negative); Protein Urine 1+ (Negative); RBC Urine Automated >30 /hpf (0-4); Specific Gravity Urine 1.018 (1.000-1.030); Urobilinogen Urine Negative (Negative)
[2022-09-12] MEDS ORDERED: OPTIRAY 320 100ml IV ONE (02:46)
[2022-09-12] MEDS ORDERED: ONDANSETRON INJ 2 MG/ML 2 ML VIAL IV STA (05:39)
--- NOTE | 2022-09-12 05:50 | CT Scan Report ---
Exam(s): CT ABDOMEN + PELVIS With Contrast IV Amt: 87 cc's EXAM: CT Abdomen and Pelvis With Intravenous Contrast CLINICAL HISTORY: Left flank pain. TECHNIQUE: Axial computed tomography images of the abdomen and pelvis with intravenous contrast. CTDI is 38.24 mGy and DLP is 2056.97 mGy-cm. Automated exposure control was utilized for the study. A dose lowering technique was utilized adhering to the principles of ALARA. CONTRAST: Patient received 87 cc's of IV contrast COMPARISON: CT abdomen and pelvis 06/02/2022 FINDINGS: Lung bases: Unremarkable. No mass. No consolidation. ABDOMEN: Liver: Unremarkable. No mass. Gallbladder and bile ducts: Cholecystectomy. No ductal dilation. Pancreas: Unremarkable. No mass. No ductal dilation. Spleen: Unremarkable. No splenomegaly. Adrenals: Unremarkable. No mass. Kidneys and ureters: Stable appearance of the right kidney. The left is within normal limits. No hydronephrosis. Stomach and bowel: There are surgical changes of the stomach. The excluded stomach lumen is debris filled. No obstruction. No mucosal thickening. PELVIS: Appendix: No findings to suggest acute appendicitis. Bladder: Unremarkable. No mass. Reproductive: Unremarkable as visualized. ABDOMEN and PELVIS: Intraperitoneal space: Unremarkable. No free air. No significant fluid collection. Bones/joints: There are degenerative changes of the spine. No fracture. No dislocation. Soft tissues: Small fat-containing umbilical hernia. Vasculature: Minimal atherosclerosis. No abdominal aortic aneurysm. Lymph nodes: Unremarkable. No enlarged lymph nodes. IMPRESSION: There are surgical changes of the stomach. The excluded stomach lumen is debris filled. Electronically signed by: Meche Valenzuela MD 09/12/22 05:49 AM
[2022-09-12] MEDS: HYDROmorphone INJ 0.5 MG/0.5 ML SYR IV PRN ×2 (05:52→11:51)
--- NOTE | 2022-09-12 07:44 | History & Physical Report ---
Date of Service September 12, 2022 Assessment & Plan (1) Intractable abdominal pain: Plan: Patient admitted with abdominal pain with history of Gastric bypass. Known to Dr. Hayden with previous EGD. Patient will be admitted under obs, may need repeat EGD. Gven that pain occurs 20 minutes after eating or drinking, concern for the gastric pouch, duodenal ulcer. Ischemic colitis will be lower in the differential, may consider getting mesenteric artery U/S will consider NPO (2) Depression: Plan: resume home mes (3) Diabetes mellitus type 2 in obese: Plan: A1C is at goal. will monitor blood sugars (4) Hypertension: Plan: resume home meds and monitor (5) Sleep apnea: (6) Hx pulmonary embolism: Plan: on warfarin. supratherapeutic INR, will give vit K. (7) GERD (gastroesophageal reflux disease): (8) Obesity, Class II, BMI 35-39.9: Plan: recommend lifestyle changes. History of Present Illness Chief Complaint: abd. pain Primary Care Provider: Henry Prieto, 77 yo male with PMH: gastruc bypass surgery, obesity, DVT/PE, GERD comes to the ER with LUQ abdominal pain, as well as the epigastric region. Patient reports pain is a dull pain that occurs 20 minutes after eating food. This even occurs as he takes a liquid diet. This has been ongoing for the past few days without improving which prompted him to come to the ED. He denies any vomiting. He states having a bowel movement does not help with your pain. He has no fever or chills.Intermittently takes NSAIDs. He does take NSAIDs on occasion. Allergies Allergy/AdvReac Type Severity Reaction Status Date / Time amoxicillin Allergy Intermediate rash Verified 09/03/22 13:10 Penicillins Allergy Intermediate rash Verified 09/03/22 13:10 Home Medications Medication Instructions Recorded Confirmed Type ferrous sulfate 325 mg (65 mg 325 mg PO QDL 04/20/21 09/12/22 History iron) tablet acetaminophen 500 mg capsule See Rx Instructions PO ONCE 11/02/21 09/12/22 History secukinumab 150 mg/mL subcutaneous 300 mg (2 mL) subcut .COMPLEX #6 mL 03/22/22 09/12/22 Rx pen injector (Cosentyx Pen 300 mg/2 Pens () hydrochlorothiazide 25 mg tablet 25 mg PO QAM #90 tabs 05/03/22 09/12/22 Rx lisinopril 20 mg tablet 20 mg PO QAM #90 tabs 05/03/22 09/12/22 Rx potassium chloride 20 mEq 20 meq PO QAM #90 tabs 05/03/22 09/12/22 Rx tablet,extended release(part/cryst) (Klor-Con M) gabapentin 300 mg capsule 300 mg PO TID #90 caps 05/07/22 09/12/22 Rx Saccharomyces boulardii 250 mg 250 mg PO QAM 06/28/22 09/12/22 History capsule (Daily Probiotic (S. boulardii)) pantoprazole 40 mg tablet,delayed 40 mg PO QAM #90 tabs 07/22/22 09/12/22 Rx release duloxetine 40 mg capsule,delayed 40 mg PO DAILY 08/10/22 09/12/22 History release semaglutide 0.25 mg or 0.5 mg (2 0.5 mg (0.8 mL) subcut .weekly #3 08/10/22 09/12/22 Rx mg/3 mL) subcutaneous pen injector mL (Ozempic) warfarin 5 mg tablet See Rx Instructions PO UD 08/17/22 09/12/22 History Past Med/Surg History Medical History Anemia Completed EGD/Colonoscopy 2021, Iron Replacement Asthma inhaler prn Benign esophageal stricture Benign hypertension (08/13/12) COVID-19 diagnosed 02/24/21 @ [place]--trouble breathing, fever, fatigue, loss of appetite, diarrhea--no issues now Degenerative arthritis of knee, bilateral Diabetes mellitus, type 2 diet controlled Dyspnea Encounter for pre-operative examination Fatty infiltration of liver Generalized osteoarthritis GERD (gastroesophageal reflux disease) Hearing deficit Hiatal hernia History of colitis History of kidney stones Hx of deep venous thrombosis RIGHT CALF ~4-5 YRS AGO, COUMADIN DAILY Hx of pancreatitis Hx pulmonary embolism (~2015) ~14 YRS AGO- NO ISSUES SINCE Hypertension Left sided abdominal pain Lumbar spondylosis Lymphedema Macular degeneration Metabolic syndrome Morbid obesity BMI 45.8% Osteoarthritis Psoriasis Psoriatic arthritis Scoliosis Sleep apnea Restarted CPAP SNHL (sensorineural hearing loss) Traumatic open wound of left lower leg hit thompson on recliner causing a hematoma that started bleeding, was seen and treated at [facility] 07/15/22 Venous insufficiency Surgical History History of bilateral cataract extraction History of cardiac cath roughly 8yrs ago @ [facility]--no stents History of colonoscopy 06/2021 Repeat 3 yrs History of esophagogastroduodenoscopy (EGD) (~06/2021) History of tooth extraction all teeth removed S/P cholecystectomy S/P gastroplasty S/P hernia repair incisional hernia S/P tonsillectomy Family History Family/Other Hearing loss Paternal cousins Mother Heart disease Hypertension Family history of reaction to anesthesia difficulty waking after surgery Other Myocardial infarction No family history of bleeding disorder Prostate cancer Denies family history of Ovarian cancer Breast cancer Colorectal cancer Social History Smoking Status: Former smoker Tobacco Type: Cigarettes Age Started Using Tobacco: 16; Age Quit Using Tobacco: 30; packs per day: 1; Cigarettes Per Day: QUIT ~45 YRS AGO; Second Hand Exposure: No; Do You Dip or Chew Tobacco: No; Hx Alcohol Use: No Hx Substance Use: No Preferred Language: Malaysian Communication Ability: Effective Visual Impairment: Limited Hearing Ability: Use of Hearing Aid Gis Developer Required: No Beliefs That Will Affect Care: Jain Jain Beliefs: Druze marital status: Current Living Situation: Significant Other current occupational status: retired How many Children do You have: 1 Feels Safe at Home: Yes Safety Concerns: Feels Safe At This Time Childhood Exposure to Second-Hand Smoke: Yes Diet: regular caffeine: No Dental Care, Regularly: No Physical Activity Frequency: 1-2 Times per Week Physical Activity Frequency Comment: excerise arms Seatbelt Use: always Sunscreen Use: Yes Assistive Devices: Cane, Walker and Wheelchair Review of Systems Constitutional: no fever and no body aches Eyes: no blind spots Ear, Nose, Mouth, Throat: no ear pain Respiratory: no cough Cardiovascular: no chest pain Gastrointestinal: + abdominal pain Genitourinary: no dysuria Musculoskeletal: no back pain Integumentary: no acne Neurologic: no gait abnormality Psychiatric: no behavioral changes Endocrine: no fatigue Hematologic / Lymphatic: no easy bleeding Allergy / Immunological: no lip swelling Physical Exam Constitutional: WD/WN, vitals as above Eyes: PERRL, conjunctivae normal, anicteric sclerae ENMT: external ear and nose normal, oropharynx normal Neck: trachea midline, no thyromegaly Respiratory: normal respiratory effort, lungs clear to auscultation Cardiovascular: RRR, no murmur, no edema Gastrointestinal (Abdomen): normal bowel sounds, soft, nontender, no hepatosplenomegaly Musculoskeletal: no cyanosis or clubbing, extremities motor strength 5/5 Skin: no rashes, warm and dry Neurologic: PERRL, EOMI, accommodation nl, no face palsy, no dysarthria Psychiatric: A+Ox3, euthymic affect Lymphatic: no cervical or axillary lymphadenopathy Results & Data Results & Data Vital Signs (Past 12 Hours) Vital Signs Temp Pulse Pulse Resp BP BP Pulse Ox 09/12/22 06:56 53 L 16 149/78 H 99 09/12/22 06:37 52 L 09/12/22 05:46 66 13 166/94 H 98 09/12/22 04:35 18 131/83 95 09/12/22 02:30 63 18 98 09/12/22 02:03 62 16 97 09/12/22 02:03 134/75 09/12/22 02:03 63 20 134/75 97 09/12/22 00:39 57 L 18 155/81 H 95 09/11/22 23:33 36.4 C L 88 20 162/94 H 94 O2 Del Method 09/12/22 06:56 Room Air 09/12/22 06:37 09/12/22 05:46 09/12/22 04:35 09/12/22 02:30 09/12/22 02:03 09/12/22 02:03 09/12/22 02:03 Room Air 09/12/22 00:39 Room Air 09/11/22 23:33 Room Air PG Care Time/CCT Total # of Minutes Spent Total Time Spent with Patient: Total time spent is greater than 50% in coordination of care (as documented) at patient's floor/unit and/or counseling patient: Coding Level of Care Code 79667 INT INP/OBS CARE 3/75MIN Diagnoses Intractable abdominal pain R10.9 Depression F32.9 Diabetes mellitus type 2 in obese E11.69; E66.9 Hypertension I10 Sleep apnea G47.30 Hx pulmonary embolism Z86.711 GERD (gastroesophageal reflux disease) K21.9 Obesity, Class II, BMI 35-39.9 E66.9
[2022-09-12] MEDS ORDERED: FAMOTIDINE 20MG/5ML IV PUSH IV ONE (08:10)
[2022-09-12] MEDS: SUCRALFATE 1 GM/10 ML UDC PO SCH ×4 (08:12→22:02)
[2022-09-12] MEDS: LACTATED RINGER'S 1,000 ML IV SCH (08:12)
[2022-09-12] MEDS: FAMOTIDINE 20 MG in SYRINGE 3 ML IV SCH ×2 (08:16→22:03)
[2022-09-12 09:15] LABS: Partial Thromboplastin Ratio 1.6; Prothrombin Time 40.2 Seconds (9.0-12.0)
[2022-09-12 09:22] LABS: Partial Thromboplastin Time 46.2 Seconds (21.0-31.0)
[2022-09-12] MEDS: GABAPENTIN 300 MG CAP PO SCH ×3 (11:03→22:02)
[2022-09-12] MEDS: DULoxetine HCL 20 MG CAP PO SCH (11:03)
[2022-09-12] MEDS: lisinopril 20 MG TAB PO SCH (11:04)
--- NOTE | 2022-09-12 11:07 | Gastrointestinal Consultation ---
Date of Consultation September 12, 2022 Assessment & Plan (1) Left sided abdominal pain: Pleasant man with left sided abdominal pain that seems postprandial. The differential diagnosis would start with peptic disease but adhesive disease could be a consideration considering his surgeries. He has a history of pa ncreatitis but does not show evidence of this now. Nothing definitive on CT scan either. I would suggest EGD but his INR is 4 so that will need to be corrected. The [facility] GI team will take over and decide the timing of his procedure. History of Present Illness Reason for Consultation: abdominal pain Attending Physician: History of Present Illness 77 year old morbidly obese man who has had two days of left sided pain. He indicates his lower abdomen as he is sitting up describing the pain. He says it will come on about 20 minutes after he eats. He has no vomiting with it. He describes it just as "a pain". He usually has more frequent bowel movements but over the last two days he has only had three. However, having a bowel movement does not help his pain. He has no fever or chills. He does take NSAIDs on occasion but only every week or so. He has had pain like this in the past without diagnosis. He has had EGD and colonoscopy in the past year or so by Dr. Hayden. He has a history of gastric bypass 40 years ago or so and has had mesh placed on two separate occasions. He has also had his gallbladder out. He states he stopped taking most of his medications two weeks ago. Allergies Allergy/AdvReac Type Severity Reaction Status Date / Time amoxicillin Allergy Intermediate rash Verified 09/03/22 13:10 Penicillins Allergy Intermediate rash Verified 09/03/22 13:10 Home Medications Medication Instructions Recorded Confirmed Type ferrous sulfate 325 mg (65 mg 325 mg PO QDL 04/20/21 09/12/22 History iron) tablet acetaminophen 500 mg capsule See Rx Instructions PO ONCE 11/02/21 09/12/22 History secukinumab 150 mg/mL subcutaneous 300 mg (2 mL) subcut .COMPLEX #6 mL 03/22/22 09/12/22 Rx pen injector (Cosentyx Pen 300 mg/2 Pens () hydrochlorothiazide 25 mg tablet 25 mg PO QAM #90 tabs 05/03/22 09/12/22 Rx lisinopril 20 mg tablet 20 mg PO QAM #90 tabs 05/03/22 09/12/22 Rx potassium chloride 20 mEq 20 meq PO QAM #90 tabs 05/03/22 09/12/22 Rx tablet,extended release(part/cryst) (Klor-Con M) gabapentin 300 mg capsule 300 mg PO TID #90 caps 05/07/22 09/12/22 Rx Saccharomyces boulardii 250 mg 250 mg PO QAM 06/28/22 09/12/22 History capsule (Daily Probiotic (S. boulardii)) pantoprazole 40 mg tablet,delayed 40 mg PO QAM #90 tabs 07/22/22 09/12/22 Rx release duloxetine 40 mg capsule,delayed 40 mg PO DAILY 08/10/22 09/12/22 History release semaglutide 0.25 mg or 0.5 mg (2 0.5 mg (0.8 mL) subcut .weekly #3 08/10/22 09/12/22 Rx mg/3 mL) subcutaneous pen injector mL (Ozempic) warfarin 5 mg tablet See Rx Instructions PO UD 08/17/22 09/12/22 History Patient History Medical History (Updated 09/12/22 @ 11:06 by Bradley Brandon Jr, MD) Anemia Completed EGD/Colonoscopy 2021, Iron Replacement Asthma inhaler prn Benign esophageal stricture Benign hypertension (08/13/12) COVID-19 diagnosed 02/24/21 @ [place]--trouble breathing, fever, fatigue, loss of appetite, diarrhea--no issues now Degenerative arthritis of knee, bilateral Diabetes mellitus, type 2 diet controlled Dyspnea Fatty infiltration of liver Generalized osteoarthritis GERD (gastroesophageal reflux disease) Hearing deficit Hiatal hernia History of colitis History of kidney stones Hx of deep venous thrombosis RIGHT CALF ~4-5 YRS AGO, COUMADIN DAILY Hx of pancreatitis Hx pulmonary embolism (~2015) ~14 YRS AGO- NO ISSUES SINCE Hypertension Left sided abdominal pain Lumbar spondylosis Lymphedema Macular degeneration Metabolic syndrome Morbid obesity BMI 45.8% Osteoarthritis Psoriasis Psoriatic arthritis Scoliosis Sleep apnea Restarted CPAP SNHL (sensorineural hearing loss) Traumatic open wound of left lower leg hit thompson on recliner causing a hematoma that started bleeding, was seen and treated at [facility] 07/15/22 Venous insufficiency Surgical History History of bilateral cataract extraction History of cardiac cath roughly 8yrs ago @ [facility]--no stents History of colonoscopy 06/2021 Repeat 3 yrs History of esophagogastroduodenoscopy (EGD) (~06/2021) History of tooth extraction all teeth removed S/P cholecystectomy S/P gastroplasty S/P hernia repair incisional hernia S/P tonsillectomy Family History Family/Other Hearing loss Paternal cousins Mother Heart disease Hypertension Family history of reaction to anesthesia difficulty waking after surgery Other Myocardial infarction No family history of bleeding disorder Prostate cancer Denies family history of Ovarian cancer Breast cancer Colorectal cancer Social History Smoking Status: Former smoker Tobacco Type: Cigarettes Age Started Using Tobacco: 16; Age Quit Using Tobacco: 30; packs per day: 1; Cigarettes Per Day: QUIT ~45 YRS AGO; Second Hand Exposure: No; Do You Dip or Chew Tobacco: No; Hx Alcohol Use: No Hx Substance Use: No Preferred Language: Bahraini Communication Ability: Effective Visual Impairment: Limited Hearing Ability: Use of Hearing Aid Ct Tech Required: No Beliefs That Will Affect Care: Druze Druze Beliefs: Zoroastrian marital status: Current Living Situation: Spouse current occupational status: retired How many Children do You have: 1 Feels Safe at Home: Yes Childhood Exposure to Second-Hand Smoke: Yes Diet: regular caffeine: No Dental Care, Regularly: No Physical Activity Frequency: 1-2 Times per Week Physical Activity Frequency Comment: excerise arms Seatbelt Use: always Sunscreen Use: Yes Assistive Devices: Cane, CPAP, Denture - Upper, Denture - Lower, Glasses, Hearing Aid - Bilateral, Walker and Wheelchair Review of Systems Review of Systems: All systems reviewed & are unremarkable except as noted in HPI & below Physical Exam Constitutional: WD/WN, vitals as above + morbidly obese; no acute distress Eyes: PERRL, conjunctivae normal, anicteric sclerae ENMT: external ear and nose normal, oropharynx normal Neck: trachea midline, no thyromegaly Respiratory: normal respiratory effort, lungs clear to auscultation Cardiovascular: RRR, no murmur, no edema Gastrointestinal (Abdomen): Inspection/Auscultation: abdomen normal to inspection and normal bowel sounds Percussion/Palpation: + abdomen tender (left abdomen) and abdomen soft Musculoskeletal: Extremities: no cyanosis and no clubbing Skin: no rashes, warm and dry Neurologic: PERRL, EOMI, accommodation nl, no face palsy, no dysarthria Psychiatric: Orientation: alert and oriented x 3 Results & Data Vital Signs (Past 12 Hours) Vital Signs Temp Pulse Pulse Resp BP BP Pulse Ox 09/12/22 08:17 70 18 145/73 H 99 09/12/22 06:56 53 L 16 149/78 H 99 09/12/22 06:37 52 L 09/12/22 05:46 66 13 166/94 H 98 09/12/22 04:35 18 131/83 95 09/12/22 02:30 63 18 98 09/12/22 02:03 62 16 97 09/12/22 02:03 134/75 09/12/22 02:03 63 20 134/75 97 09/12/22 00:39 57 L 18 155/81 H 95 09/11/22 23:33 36.4 C L 88 20 162/94 H 94 O2 Del Method 09/12/22 08:17 09/12/22 06:56 Room Air 09/12/22 06:37 09/12/22 05:46 09/12/22 04:35 09/12/22 02:30 09/12/22 02:03 09/12/22 02:03 09/12/22 02:03 Room Air 09/12/22 00:39 Room Air 09/11/22 23:33 Room Air Laboratory Results 09/12/22 09/12/22 09/12/22 Range/Units 07:00 00:55 00:00 WBC (4.8-10.8) K/ul RBC (4.70-6.10) M/uL Hgb (14.0-18.0) g/dl Hct (42.0-52.0) % MCV (80.0-100.0) fL MCH (25.0-34.0) pg MCHC (32.0-36.0) g/dL RDW Std Deviation (36.4-46.3) fL RDW Coeff of Monique (11.5-14.5) % Plt Count (130-400) K/uL MPV (9.4-12.4) fL Immature Gran % (Auto) % Neut % (Auto) % Lymph % (Auto) % Franklin % (Auto) % Eos % (Auto) % Baso % (Auto) % Neut # (Auto) (1.40-6.50) K/uL Lymph # (Auto) (1.2-3.4) K/uL Franklin # (Auto) (0.11-0.59) K/uL Eos # (Auto) (0-0.50) K/uL Baso # (Auto) (0-0.2) K/uL Immature Gran # (Auto) (0.01-0.20) K/uL PT 40.2 H (9.0-12.0) Seconds INR 4.0 H (0.9-1.1) APTT 46.2 H* (21.0-31.0) Seconds PTT Ratio 1.6 Sodium (136-145) mmol/L Potassium (3.5-5.1) mmol/L Chloride (98-107) mmol/L Carbon Dioxide (21-32) mmol/L Anion Gap (3-11) BUN (6-23) mg/dl Creatinine (0.6-1.4) mg/dl Est Cr Clr Drug Dosing ml/min Est GFR ( Amer) ml/min Est GFR (Non-Af Amer) ml/min BUN/Creatinine Ratio (10-20) Glucose (70-99(Fasting)) mg/dl Calcium (8.6-10.3) mg/dl Magnesium (1.7-2.4) mg/dl Total Bilirubin (0.2-1.0) mg/dl Direct Bilirubin (0-0.2) mg/dl AST (13-39) U/L ALT (7-52) U/L Alkaline Phosphatase (34-104) U/L Total Protein (6.0-8.3) gm/dl Albumin (3.4-5.0) gm/dl Lipase (11-82) U/L Urine Color Yellow Urine Appearance Cloudy A (Clear) Urine pH 6.0 (4.5-7.5) Ur Specific [place] 1.018 (1.000-1.030) Urine Protein 1+ H (Negative) Urine Glucose (UA) Negative (Negative) Urine Ketones Trace H (Negative) Urine Blood 3+ H (Negative) Urine Nitrite Negative (Negative) Urine Bilirubin Negative (Negative) Urine Urobilinogen Negative (Negative) Ur Leukocyte Esterase Negative (Negative) Urine WBC (Auto) 1-5 (0-5) /hpf Urine RBC (Auto) >30 H (0-4) /hpf U Hyaline Cast (Auto) 5-10 H (0-5) /lpf U Epithel Cells (Auto) >30 H (0-5) /lpf Urine Bacteria (Auto) Negative (Negative) SARS-CoV-2, RNA, NAAT NEGATIVE (NEGATIVE) 09/11/22 09/11/22 Range/Units 00:00 00:00 WBC 6.75 (4.8-10.8) K/ul RBC 5.07 (4.70-6.10) M/uL Hgb 14.3 (14.0-18.0) g/dl Hct 43.9 (42.0-52.0) % MCV 86.6 (80.0-100.0) fL MCH 28.2 (25.0-34.0) pg MCHC 32.6 (32.0-36.0) g/dL RDW Std Deviation 45.3 (36.4-46.3) fL RDW Coeff of Monique 14.5 (11.5-14.5) % Plt Count 168 (130-400) K/uL MPV 10.2 (9.4-12.4) fL Immature Gran % (Auto) 0.4 % Neut % (Auto) 67.9 % Lymph % (Auto) 19.6 % Franklin % (Auto) 8.9 % Eos % (Auto) 2.8 % Baso % (Auto) 0.4 % Neut # (Auto) 4.58 (1.40-6.50) K/uL Lymph # (Auto) 1.32 (1.2-3.4) K/uL Franklin # (Auto) 0.60 H (0.11-0.59) K/uL Eos # (Auto) 0.19 (0-0.50) K/uL Baso # (Auto) 0.03 (0-0.2) K/uL Immature Gran # (Auto) 0.03 (0.01-0.20) K/uL PT (9.0-12.0) Seconds INR (0.9-1.1) APTT (21.0-31.0) Seconds PTT Ratio Sodium 141 (136-145) mmol/L Potassium 3.4 L (3.5-5.1) mmol/L Chloride 109 H (98-107) mmol/L Carbon Dioxide 25 (21-32) mmol/L Anion Gap 7 (3-11) BUN 10 (6-23) mg/dl Creatinine 1.03 (0.6-1.4) mg/dl Est Cr Clr Drug Dosing 86.6 ml/min Est GFR ( Amer) 81.4 ml/min Est GFR (Non-Af Amer) 70.2 ml/min BUN/Creatinine Ratio 9.7 L (10-20) Glucose 131 H (70-99(Fasting)) mg/dl Calcium 8.4 L (8.6-10.3) mg/dl Magnesium 1.9 (1.7-2.4) mg/dl Total Bilirubin 0.5 (0.2-1.0) mg/dl Direct Bilirubin 0.1 (0-0.2) mg/dl AST 20 (13-39) U/L ALT 18 (7-52) U/L Alkaline Phosphatase 79 (34-104) U/L Total Protein 6.4 (6.0-8.3) gm/dl Albumin 3.5 (3.4-5.0) gm/dl Lipase 23 (11-82) U/L Urine Color Urine Appearance (Clear) Urine pH (4.5-7.5) Ur Specific [place] (1.000-1.030) Urine Protein (Negative) Urine Glucose (UA) (Negative) Urine Ketones (Negative) Urine Blood (Negative) Urine Nitrite (Negative) Urine Bilirubin (Negative) Urine Urobilinogen (Negative) Ur Leukocyte Esterase (Negative) Urine WBC (Auto) (0-5) /hpf Urine RBC (Auto) (0-4) /hpf U Hyaline Cast (Auto) (0-5) /lpf U Epithel Cells (Auto) (0-5) /lpf Urine Bacteria (Auto) (Negative) SARS-CoV-2, RNA, NAAT (NEGATIVE) Diagnostic Findings Abdomen/Pelvis CT 09/12/22 02:16 Exam(s): CT ABDOMEN + PELVIS With Contrast IV Amt: 87 cc's EXAM: CT Abdomen and Pelvis With Intravenous Contrast CLINICAL HISTORY: Left flank pain. TECHNIQUE: Axial computed tomography images of the abdomen and pelvis with intravenous contrast. CTDI is 38.24 mGy and DLP is 2056.97 mGy-cm. Automated exposure control was utilized for the study. A dose lowering technique was utilized adhering to the principles of ALARA. CONTRAST: Patient received 87 cc's of IV contrast COMPARISON: CT abdomen and pelvis 06/02/2022 FINDINGS: Lung bases: Unremarkable. No mass. No consolidation. ABDOMEN: Liver: Unremarkable. No mass. Gallbladder and bile ducts: Cholecystectomy. No ductal dilation. Pancreas: Unremarkable. No mass. No ductal dilation. Spleen: Unremarkable. No splenomegaly. Adrenals: Unremarkable. No mass. Kidneys and ureters: Stable appearance of the right kidney. The left is within normal limits. No hydronephrosis. Stomach and bowel: There are surgical changes of the stomach. The excluded stomach lumen is debris filled. No obstruction. No mucosal thickening. PELVIS: Appendix: No findings to suggest acute appendicitis. Bladder: Unremarkable. No mass. Reproductive: Unremarkable as visualized. ABDOMEN and PELVIS: Intraperitoneal space: Unremarkable. No free air. No significant fluid collection. Bones/joints: There are degenerative changes of the spine. No fracture. No dislocation. Soft tissues: Small fat-containing umbilical hernia. Vasculature: Minimal atherosclerosis. No abdominal aortic aneurysm. Lymph nodes: Unremarkable. No enlarged lymph nodes. IMPRESSION: There are surgical changes of the stomach. The excluded stomach lumen is debris filled. Electronically signed by: Meche Valenzuela MD 09/12/22 05:49 AM
[2022-09-12] MEDS ORDERED: PHYTONADIONE 5 MG TAB PO STA (16:45)
[2022-09-12] MEDS: ONDANSETRON INJ 2 MG/ML 2 ML VIAL IV PRN (17:22)
[2022-09-12 20:11] LABS: INR 3.3 (0.9-1.1); Prothrombin Time 33.7 Seconds (9.0-12.0)
[2022-09-13] MEDS: LACTATED RINGER'S 1,000 ML IV SCH ×2 (00:52→13:30)
[2022-09-13] MEDS: FAMOTIDINE 20 MG in SYRINGE 3 ML IV SCH ×2 (09:13→21:04)
[2022-09-13] MEDS: GABAPENTIN 300 MG CAP PO SCH ×3 (09:13→23:23)
[2022-09-13] MEDS: SUCRALFATE 1 GM/10 ML UDC PO SCH ×4 (09:14→22:52)
[2022-09-13] MEDS: lisinopril 20 MG TAB PO SCH (09:14)
[2022-09-13] MEDS: DULoxetine HCL 20 MG CAP PO SCH (09:32)
--- NOTE | 2022-09-13 10:08 | Gastroenterology Progress Note ---
Date of Service September 13, 2022 Assessment & Plan (1) Generalized postprandial abdominal pain: Plan -Clear liquid diet today. -Continue Famotidine 20 mg BID and Carafate 1 g ACHS. -NPO after midnight. -EGD with Dr. Connelly tomorrow for further evaluation if INR is corrected. Admission and Anticipated Discharge Date Admission Date: September 12, 2022 Subjective Patient reports ongoing epigastric abdominal pain which is constant but exacerbated by eating. Currently, he rates the pain as 4/10 in [address]. Remains NPO. [address] yesterday with findings of "surgical changes of the stomach. The excluded stomach lumen is debris filled." INR remains elevated at 3.3 despite administration of vitamin K yesterday. No overt GIB. No n/v. H&H is normal. Review of Systems Constitutional: no problem reported Gastrointestinal: as per Subjective / HPI Physical Exam Constitutional: WD/WN, vitals as above Respiratory: normal respiratory effort, lungs clear to auscultation Cardiovascular: Rate/Rhythm: regular rate and regular rhythm Gastrointestinal (Abdomen): Inspection/Auscultation: normal bowel sounds and + significant pannus Percussion/Palpation: + abdomen tender (epigastric) and abdomen soft; no guarding and abdomen not rigid Results & Data Results & Data Vital Signs (Past 12 Hours) Vital Signs Temp Pulse Resp BP Pulse Ox O2 Del Method 09/13/22 08:19 36.3 C L 52 L 18 156/81 H 97 Room Air PG Care Time/CCT Total # of Minutes Spent Total Time Spent with Patient: Total time spent is greater than 50% in coordination of care (as documented) at patient's floor/unit and/or counseling patient: Coding Level of Care Code 86590 SUB INP/OBS CARE 3/50MIN Diagnoses Generalized postprandial abdominal pain R10.84
--- NOTE | 2022-09-13 12:26 | Anesthesiology Consultation ---
Date of Service September 13, 2022 Assessment & Plan (1) Encounter for pre-operative examination: Chart Review Chart Review: Acceptable Risk for Surgery, Patient NOT seen in Pre Admission Testing and entry level sales associate initiated Consults Requested none History Surgery Operation Date: 09/14/22 16:30 Proposed Procedures p Esophagogastroduodenoscopy Dr. Maricel Connelly MD Height/Weight Height: 6 ft 1 in Weight: 131 kg Allergies Allergy/AdvReac Type Severity Reaction Status Date / Time amoxicillin Allergy Intermediate rash Verified 09/03/22 13:10 Penicillins Allergy Intermediate rash Verified 09/03/22 13:10 Medications Home Medications Medication Instructions Recorded Confirmed Last Taken ferrous sulfate 325 mg (65 mg 325 mg PO QDL 04/20/21 09/12/22 07/25/22 12:00 iron) tablet acetaminophen 500 mg capsule See Rx Instructions PO ONCE 11/02/21 09/12/22 Unknown secukinumab 150 mg/mL subcutaneous 300 mg (2 mL) subcut .COMPLEX #6 mL 03/22/22 09/12/22 07/08/22 08:00 pen injector (Cosentyx Pen 300 mg/2 Pens () hydrochlorothiazide 25 mg tablet 25 mg PO QAM #90 tabs 05/03/22 09/12/22 07/25/22 12:00 lisinopril 20 mg tablet 20 mg PO QAM #90 tabs 05/03/22 09/12/22 07/25/22 12:00 potassium chloride 20 mEq 20 meq PO QAM #90 tabs 05/03/22 09/12/22 07/26/22 07:00 tablet,extended release(part/cryst) (Klor-Con M) gabapentin 300 mg capsule 300 mg PO TID #90 caps 05/07/22 09/12/22 07/26/22 07:00 Saccharomyces boulardii 250 mg 250 mg PO QAM 06/28/22 09/12/22 07/24/22 12:00 capsule (Daily Probiotic (S. boulardii)) pantoprazole 40 mg tablet,delayed 40 mg PO QAM #90 tabs 07/22/22 09/12/2207/26 07:00 release duloxetine 40 mg capsule,delayed 40 mg PO DAILY 08/10/22 09/12/22 Unknown release semaglutide 0.25 mg or 0.5 mg (2 0.5 mg (0.8 mL) subcut .weekly #3 08/10/22 09/12/22 Unknown mg/3 mL) subcutaneous pen injector mL (Ozempic) warfarin 5 mg tablet See Rx Instructions PO UD 08/17/22 09/12/22 Unknown Active Medications Generic Name Dose Route Start Last Admin Trade Name Freq PRN Reason Stop Dose Admin Duloxetine HCl 40 mg 09/12/22 10:45 09/13/22 09:32 Duloxetine Hcl 20 Mg Cap PO 10/12/22 10:44 40 mg DAILY LEV Administration Gabapentin 300 mg 09/12/22 10:45 09/13/22 09:13 Gabapentin 300 Mg Cap PO 10/12/22 10:44 300 mg TID LEV Administration Famotidine 20 mg/ Syringe 5 mls @ 2.5 mls/min 09/12/22 09:00 09/13/22 09:13 IV 10/12/22 08:59 2.5 mls/min BID LEV Administration Lactated Ringer's 1,000 mls @ 80 mls/hr 09/12/22 08:00 09/13/22 00:52 Lr IV 10/12/22 07:59 80 mls/hr .[id number] LEV Administration Lisinopril 20 mg 09/12/22 10:45 09/13/22 09:14 Lisinopril 20 Mg Tab PO 10/12/22 10:44 20 mg QAM LEV Administration Ondansetron HCl 4 mg 09/12/22 16:15 09/12/22 17:22 Ondansetron Inj 2 Mg/Ml 2 Ml Vial IV 10/12/22 16:14 4 mg Q6H PRN Administration Nausea And Vomiting Sucralfate 1 gm 09/12/22 09:00 09/13/22 09:14 Sucralfate 1 Gm/10 Ml Udc PO 10/12/22 08:59 1 gm QID LEV Administration Past Medical History Medical History (Updated 09/13/22 @ 12:30 by Kory Mackey MD) Anemia Completed EGD/Colonoscopy 2021, Iron Replacement Asthma inhaler prn Benign esophageal stricture Benign hypertension (08/13/12) COVID-19 diagnosed 02/24/21 @ [place]--trouble breathing, fever, fatigue, loss of appetite, diarrhea--no issues now Degenerative arthritis of knee, bilateral Diabetes mellitus, type 2 diet controlled Dyspnea Encounter for pre-operative examination Fatty infiltration of liver Generalized osteoarthritis GERD (gastroesophageal reflux disease) Hearing deficit Hiatal hernia History of colitis History of kidney stones Hx of deep venous thrombosis RIGHT CALF ~4-5 YRS AGO, COUMADIN DAILY Hx of pancreatitis Hx pulmonary embolism (~2015) ~14 YRS AGO- NO ISSUES SINCE Hypertension Left sided abdominal pain Lumbar spondylosis Lymphedema Macular degeneration Metabolic syndrome Morbid obesity BMI 45.8% Osteoarthritis Psoriasis Psoriatic arthritis Scoliosis Sleep apnea Restarted CPAP SNHL (sensorineural hearing loss) Traumatic open wound of left lower leg hit thompson on recliner causing a hematoma that started bleeding, was seen and treated at [facility] 07/15/22 Venous insufficiency Past Family History Family History Family/Other Hearing loss Paternal cousins Mother Heart disease Hypertension Family history of reaction to anesthesia difficulty waking after surgery Other Myocardial infarction No family history of bleeding disorder Prostate cancer Denies family history of Ovarian cancer Breast cancer Colorectal cancer Past Surgical History Surgical History History of bilateral cataract extraction History of cardiac cath roughly 8yrs ago @ [facility]--no stents History of colonoscopy 06/2021 Repeat 3 yrs History of esophagogastroduodenoscopy (EGD) (~06/2021) History of tooth extraction all teeth removed S/P cholecystectomy S/P gastroplasty S/P hernia repair incisional hernia S/P tonsillectomy Social History Smoking Status: Former smoker tobacco type: cigarettes Smoking cigarettes per day: QUIT ~45 YRS AGO Do You Dip or Chew Tobacco: No Hx Alcohol Use: No Hx Substance Use: No substance use type: does not use Physical Exam Vital Signs Last Vital Signs Temp 36.3 C L 09/13/22 08:19 Pulse 52 L 09/13/22 08:19 Resp 18 09/13/22 08:19 BP 156/81 H 09/13/22 08:19 Pulse Ox 97 09/13/22 08:19 O2 Del Method Room Air 09/13/22 08:19 Testing Laboratory Results 09/11/22 00:00 09/11/22 00:00 PT 33.7 Seconds (9.0-12.0) H 09/12/22 19: INR 3.3 (0.9-1.1) H 09/12/22 19: APTT 46.2 Seconds (21.0-31.0) H* 09/12/22 00:00 Urine Color Yellow 09/12/22 00:55 Urine Appearance Cloudy (Clear) A 09/12/22 00:55 Urine pH 6.0 (4.5-7.5) 09/12/22 00:55 Ur Specific Cecil 1.018 (1.000-1.030) 09/12/22 00:55 Urine Protein 1+ (Negative) H 09/12/22 00:55 Urine Glucose (UA) Negative (Negative) 09/12/22 00:55 Urine Ketones Trace (Negative) H 09/12/22 00:55 Urine Nitrite Negative (Negative) 09/12/22 00:55 Ur Leukocyte Esterase Negative (Negative) 09/12/22 00:55 Urine WBC (Auto) 1-5 /hpf (0-5) 09/12/22 00:55 Urine RBC (Auto) >30 /hpf (0-4) H 09/12/22 00:55 U Hyaline Cast (Auto) 5-10 /lpf (0-5) H 09/12/22 00:55 U Epithel Cells (Auto) >30 /lpf (0-5) H 09/12/22 00:55 Urine Bacteria (Auto) Negative (Negative) 09/12/22 00:55 Electrocardiogram Date: 03/07/21 Test Reason : Blood Pressure : / mmHG Vent. Rate : 064 BPM Atrial Rate : 064 BPM P-R Int : 184 ms QRS Dur : 080 ms QT Int : 406 ms P-R-T Axes : -09 001 035 degrees QTc Int : 418 ms Normal sinus rhythm Normal ECG When compared with ECG of 27-FEB-2021 14:23, Premature atrial complexes are no longer Present Confirmed by Kory Samuel ([id number]) on 03/08/2021 7:25:07 AM Chest X-Ray Date: 03/07/21 SINGLE VIEW CHEST CLINICAL HISTORY: Covid. FINDINGS: An AP, portable, upright chest radiograph is compared to chest x-ray and chest CT dated 02/27/2021. The cardiomediastinal silhouette is unremarkable. There is mild bibasilar atelectasis. The lungs and pleural spaces are otherwise clear. No pneumothorax is seen. The skeletal structures are osteopenic. The bony thorax is grossly intact. IMPRESSION: Cardiomegaly with no acute cardiopulmonary abnormality. Echocardiogram Date: 10/03/19 EF: 60% LV Function: normal
[2022-09-13 16:54] LABS: Hematocrit (blood only) 42.3 % (42.0-52.0); Hemoglobin 13.6 g/dl (14.0-18.0); Mean Corpuscular Hemoglobin 28.2 pg (25.0-34.0); Mean Corpuscular Hgb Conc 32.2 g/dL (32.0-36.0); Mean Corpuscular Volume 87.8 fL (80.0-100.0); Mean Platelet Volume 10.3 fL (9.4-12.4); Platelet Count 147 K/uL (130-400); RDW Coefficient of Variation 14.5 % (11.5-14.5); RDW Standard Deviation 46.4 fL (36.4-46.3); Red Blood Count 4.82 M/uL (4.70-6.10); White Blood Count 5.82 K/ul (4.8-10.8)
[2022-09-13 17:02] LABS: BUN Creatinine Ratio 10.8 (10-20); Calcium 8.5 mg/dl (8.6-10.3); Creatinine Clr Calc Pharmacy 95.9 ml/min; Est GFR (African American) 92.1 ml/min; Est GFR (Non-African American) 79.5 ml/min; Potassium 3.4 mmol/L (3.5-5.1)
[2022-09-13 17:17] LABS: Prothrombin Time 21.2 Seconds (9.0-12.0)
[2022-09-13] MEDS ORDERED: PHYTONADIONE 5 MG TAB PO STA (18:10)
[2022-09-13] MEDS ORDERED: POTASSIUM CHLORIDE / WTR 10 MEQ/100 ML PLCT IV ONE (18:11)
--- NOTE | 2022-09-13 22:54 | Hospitalist Progress Note ---
Date of Service September 13, 2022 Assessment & Plan (1) Intractable abdominal pain: Plan: Patient admitted with abdominal pain with history of Gastric bypass. Known to Dr. Hayden with previous EGD. Patient will be admitted under obs, may need repeat EGD. Gven that pain occurs 20 minutes after eating or drinking, concern for the gastric pouch, duodenal ulcer. Ischemic colitis will be lower in the differential, may consider getting mesenteric artery U/S Plan for EGD on 09/14 as patient continues to have elevated INR. Another dose of vitamin K is ordered. (2) Depression: Plan: resume home meds: cymbalta (3) Diabetes mellitus type 2 in obese: Plan: A1C is at goal. will monitor blood sugars (4) Hypertension: Plan: resume home meds and monitor (5) Sleep apnea: (6) Hx pulmonary embolism: Plan: on warfarin. supratherapeutic INR, will give vit K. (7) GERD (gastroesophageal reflux disease): (8) Obesity, Class II, BMI 35-39.9: Plan: recommend lifestyle changes. Admission and Anticipated Discharge Date Admission Date: September 13, 2022 Subjective Patient continues to have pain when he eats. Review of Systems Review of Systems: All systems reviewed & are unremarkable except as noted in HPI & below Physical Exam Constitutional: WD/WN, vitals as above Eyes: PERRL, conjunctivae normal, anicteric sclerae ENMT: external ear and nose normal, oropharynx normal Neck: trachea midline, no thyromegaly Respiratory: normal respiratory effort, lungs clear to auscultation Cardiovascular: Rate/Rhythm: regular rate and regular rhythm Gastrointestinal (Abdomen): normal bowel sounds, soft, nontender, no hepatosplenomegaly (except for tenderness in Left upper quadrant, no rebound tenderness) Skin: no rashes, warm and dry Neurologic: PERRL, EOMI, accommodation nl, no face palsy, no dysarthria Results & Data Results & Data Vital Signs (Past 12 Hours) Vital Signs Temp Pulse Resp BP Pulse Ox O2 Del Method 09/13/22 21:00 36.4 C L 58 L 18 153/85 H 97 Room Air 09/13/22 14:21 36.4 C L 68 18 149/75 H 95 Room Air PG Care Time/CCT Total # of Minutes Spent Total Time Spent with Patient: Total time spent is greater than 50% in coordination of care (as documented) at patient's floor/unit and/or counseling patient: Coding Level of Care Code 04259 SUB INP/OBS CARE 2/35MIN Diagnoses Intractable abdominal pain R10.9 Depression F32.9 Diabetes mellitus type 2 in obese E11.69; E66.9 Hypertension I10 Sleep apnea G47.30 Hx pulmonary embolism Z86.711 GERD (gastroesophageal reflux disease) K21.9 Obesity, Class II, BMI 35-39.9 E66.9
[2022-09-13] MEDS: ONDANSETRON INJ 2 MG/ML 2 ML VIAL IV PRN (23:23)
[2022-09-14] MEDS: LACTATED RINGER'S 1,000 ML IV SCH ×2 (01:18→13:41)
[2022-09-14] MEDS: GABAPENTIN 300 MG CAP PO SCH ×3 (08:20→20:06)
[2022-09-14] MEDS: SUCRALFATE 1 GM/10 ML UDC PO SCH ×4 (08:20→20:07)
[2022-09-14] MEDS: DULoxetine HCL 20 MG CAP PO SCH (08:20)
[2022-09-14 08:21] LABS: Hematocrit (blood only) 44.2 % (42.0-52.0); Hemoglobin 14.6 g/dl (14.0-18.0); Mean Corpuscular Hemoglobin 28.2 pg (25.0-34.0); Mean Corpuscular Volume 85.5 fL (80.0-100.0); Platelet Count 125 K/uL (130-400); RDW Coefficient of Variation 14.3 % (11.5-14.5); RDW Standard Deviation 45.1 fL (36.4-46.3); Red Blood Count 5.17 M/uL (4.70-6.10); White Blood Count 5.26 K/ul (4.8-10.8)
[2022-09-14] MEDS: lisinopril 20 MG TAB PO SCH (08:21)
[2022-09-14] MEDS: FAMOTIDINE 20 MG in SYRINGE 3 ML IV SCH (08:23)
[2022-09-14 08:26] LABS: Calcium 8.2 mg/dl (8.6-10.3); Potassium 3.4 mmol/L (3.5-5.1)
[2022-09-14 08:32] LABS: BUN Creatinine Ratio 9.5 (10-20); Creatinine Clr Calc Pharmacy 106.2 ml/min; Est GFR (African American) 98.6 ml/min; Est GFR (Non-African American) 85.1 ml/min
--- NOTE | 2022-09-14 08:49 | History & Physical Bridge Note ---
Date of Service September 14, 2022 History & Physical Bridge Note I have examined the patient, reviewed the History & Physical and in the interval since the performance of the History & Physical I have noted the following changes of clinical significance: no changes noted Proceed with EGD. risks/benefits and procedure discussed with patient, who agrees to proceed
[2022-09-14] MEDS ORDERED: LIDOCAINE 2% 2 ML VIAL/AMP(20MG/ML) INFIL ONE (09:30)
[2022-09-14] MEDS ORDERED: PROPOFOL IV EMULSION 10 MG/ML 20 ML VIAL IV ONE (09:30)
--- NOTE | 2022-09-14 09:56 | GI REPORT ---
Patient Name: Jimbo Elias Procedure Date: 09/14/2022 9:23 AM Date of : 1945 Admit Type: Inpatient Age: 77 Gender: Male Attending MD: Mt Connelly MD, Procedure: Upper GI endoscopy Providers: Mt Connelly MD Referring MD: Henry Prieto Indications: Abdominal pain, Abnormal CT of the GI tract Medicines: Monitored Anesthesia Care Complications: No immediate complications. Estimated blood loss: None. Estimated Blood Loss: Estimated blood loss: none. Procedure: Pre-Anesthesia Assessment: - Prior Anticoagulants: The patient has taken no anticoagulant or antiplatelet agents. - ASA Grade Assessment: III - A patient with severe systemic disease. After obtaining informed consent, the endoscope was passed under direct vision. Throughout the procedure, the patient's blood pressure, pulse, and oxygen saturations were monitored continuously. The Endoscope was introduced through the mouth, and advanced to the second part of duodenum. The upper GI endoscopy was accomplished without difficulty. The patient tolerated the procedure well. Findings: The examined esophagus was normal. A large amount of food (residue) was found in the gastric fundus at the pouch from previous gastroplasty. this was suctioned. no apparent fistula nor ulcer was seen. Diffuse mild inflammation characterized by erythema was found in the stomach. Biopsies were taken with a cold forceps for Helicobacter pylori testing. Estimated blood loss: none. The duodenal bulb and second portion of the duodenum were normal. Impression: - Normal esophagus. - A large amount of food (residue) in the stomach. - Gastritis. Biopsied. - Normal duodenal bulb and second portion of the duodenum. Recommendation: - Resume previous diet today. - Await pathology results. - [facility] patient to [facility] for [facility] care. -consider surgical revision if continues to have pains. Mt Connelly MD 09/14/2022 9:56:07 AM This report has been signed electronically. Note Initiated On: 09/14/2022 9:23 AM Number of Addenda: 0 I attest to the content of the Intraoperative Record and orders documented therein, exceptions below {[id number]}
--- NOTE | 2022-09-14 13:28 | Anesthesiology Progress Note ---
Date of Service September 14, 2022 Anesthesia Post Procedure Vital Signs Vital Signs: Temp Pulse Resp BP Pulse Ox O2 Del Method 09/14/22 10:25 55 L 16 163/87 H 98 Room Air 09/14/22 10:06 60 14 144/73 H 98 Room Air 09/14/22 09:51 60 14 114/83 97 Room Air 09/14/22 08:00 Room Air 09/14/22 08:35 36.3 C L 70 16 136/79 95 Room Air 09/14/22 07:24 37.1 C 82 18 163/78 H 93 Room Air 09/13/22 20:30 Room Air 09/13/22 21:00 36.4 C L 58 L 18 153/85 H 97 Room Air 09/13/22 14:21 36.4 C L 68 18 149/75 H 95 Room Air Pain Intensity Left Abdomen: Pain Intensity: 0 Transfer of Care Handoff Completed per policy Notes Mental Status: alert / awake / arousable and participated in evaluation Patient Amnestic to Procedure: Yes Nausea / Vomiting: adequately controlled Pain: adequately controlled Airway Patency, RR, SpO2: stable & adequate BP & HR: stable & adequate Hydration State: stable & adequate Anesthetic Complications: no major complications apparent
[2022-09-14 15:07] LABS: INR 1.4 (0.9-1.1); Partial Thromboplastin Ratio 1.1; Partial Thromboplastin Time 32.2 Seconds (21.0-31.0); Prothrombin Time 15.3 Seconds (9.0-12.0)
[2022-09-14] MEDS: POTASSIUM CHLORIDE / WTR 10 MEQ/100 ML PLCT IV SCH ×2 (16:07→17:18)
[2022-09-14] MEDS: ACETAMINOPHEN 325 MG TAB PO SCH ×2 (16:12→22:44)
[2022-09-14] MEDS: FAMOTIDINE 20 MG TAB PO SCH (20:06)
[2022-09-14] MEDS: PANTOprazole 40 MG TAB PO SCH (20:06)
[2022-09-14] MEDS ORDERED: MICONAZOLE NITRATE POWDER 85 GM EXT PRN (22:07)
--- NOTE | 2022-09-14 22:35 | Hospitalist Progress Note ---
Date of Service September 14, 2022 Assessment & Plan (1) Intractable abdominal pain: Plan: Patient admitted with abdominal pain with history of Gastric bypass. Known to Dr. Hayden with previous EGD. Patient will be admitted under obs, may need repeat EGD. Gven that pain occurs 20 minutes after eating or drinking, concern for the gastric pouch, duodenal ulcer. No need for ischemic workup as source is likely the gastric pouch. Patient will need to followup with his PCP and bariatric surgeon, Information provided to patient. (2) Depression: Plan: resume home meds: cymbalta (3) Diabetes mellitus type 2 in obese: Plan: A1C is at goal. will monitor blood sugars (4) Hypertension: Plan: resume home meds and monitor (5) Sleep apnea: (6) Hx pulmonary embolism: Plan: on warfarin: will resume tomorrow. (7) GERD (gastroesophageal reflux disease): (8) Obesity, Class II, BMI 35-39.9: Plan: recommend lifestyle changes. Admission and Anticipated Discharge Date Admission Date: September 13, 2022 Subjective 77 yo male reports feeling well except for pain when he eats. He states his pain is 8/10 and does not feel ready for discharge, He is anxious about his need for a revision. Review of Systems Review of Systems: All systems reviewed & are unremarkable except as noted in HPI & below Physical Exam Constitutional: WD/WN, vitals as above Eyes: PERRL, conjunctivae normal, anicteric sclerae ENMT: external ear and nose normal, oropharynx normal Neck: trachea midline, no thyromegaly Respiratory: normal respiratory effort, lungs clear to auscultation Cardiovascular: RRR, no murmur, no edema Rate/Rhythm: regular rate and regular rhythm Gastrointestinal (Abdomen): normal bowel sounds, soft, nontender, no hepatosplenomegaly (except for tenderness in Left upper quadrant, no rebound tenderness) Musculoskeletal: no cyanosis or clubbing, extremities motor strength 5/5 Skin: no rashes, warm and dry Neurologic: PERRL, EOMI, accommodation nl, no face palsy, no dysarthria Psychiatric: A+Ox3, euthymic affect Lymphatic: no cervical or axillary lymphadenopathy Results & Data Results & Data Vital Signs (Past 12 Hours) Vital Signs Temp Pulse Resp BP Pulse Ox O2 Del Method 09/14/22 21:00 36.6 C 63 18 125/73 94 Room Air 09/14/22 15:11 36.2 C L 74 18 156/91 H 94 Room Air PG Care Time/CCT Total # of Minutes Spent Total Time Spent with Patient: Total time spent is greater than 50% in coordination of care (as documented) at patient's floor/unit and/or counseling patient: Coding Level of Care Code 70559 SUB INP/OBS CARE 3/50MIN Diagnoses Intractable abdominal pain R10.9 Depression F32.9 Diabetes mellitus type 2 in obese E11.69; E66.9 Hypertension I10 Sleep apnea G47.30 Hx pulmonary embolism Z86.711 GERD (gastroesophageal reflux disease) K21.9 Obesity, Class II, BMI 35-39.9 E66.9 Time Spent (min) 50
[2022-09-15] MEDS: ACETAMINOPHEN 325 MG TAB PO SCH ×2 (04:59→09:47)
[2022-09-15 09:42] LABS: Hematocrit (blood only) 40.7 % (42.0-52.0); Mean Corpuscular Hemoglobin 27.9 pg (25.0-34.0); Mean Corpuscular Hgb Conc 31.9 g/dL (32.0-36.0); Mean Corpuscular Volume 87.3 fL (80.0-100.0); Platelet Count 150 K/uL (130-400); RDW Coefficient of Variation 14.6 % (11.5-14.5); RDW Standard Deviation 46.5 fL (36.4-46.3); Red Blood Count 4.66 M/uL (4.70-6.10); White Blood Count 4.15 K/ul (4.8-10.8)
[2022-09-15] MEDS: PANTOprazole 40 MG TAB PO SCH (09:45)
[2022-09-15] MEDS: GABAPENTIN 300 MG CAP PO SCH (09:45)
[2022-09-15] MEDS: SUCRALFATE 1 GM/10 ML UDC PO SCH (09:45)
[2022-09-15] MEDS: DULoxetine HCL 20 MG CAP PO SCH (09:46)
[2022-09-15] MEDS: lisinopril 20 MG TAB PO SCH (09:46)
[2022-09-15] MEDS: FAMOTIDINE 20 MG TAB PO SCH (09:46)
[2022-09-15 10:07] LABS: BUN Creatinine Ratio 7.9 (10-20); Calcium 8.5 mg/dl (8.6-10.3); Creatinine Clr Calc Pharmacy 88.3 ml/min; Est GFR (African American) 83.4 ml/min; Est GFR (Non-African American) 71.9 ml/min; Potassium 3.5 mmol/L (3.5-5.1)
--- NOTE | 2022-09-21 14:46 | Discharge Summary ---
Date of Service September 15, 2022 Admission HPI Per Admitting Provider 77 yo male with PMH: gastruc bypass surgery, obesity, DVT/PE, GERD comes to the ER with LUQ abdominal pain, as well as the epigastric region. Patient reports pain is a dull pain that occurs 20 minutes after eating food. This even occurs as he takes a liquid diet. This has been ongoing for the past few days without improving which prompted him to come to the ED. He denies any vomiting. He states having a bowel movement does not help with your pain. He has no fever or chills.Intermittently takes NSAIDs. He does take NSAIDs on occasion. Principal Diagnosis Intractable abdominal pain Discharge Exam Constitutional WD/WN, vitals as above Eyes PERRL, conjunctivae normal, anicteric sclerae ENMT external ear and nose normal, oropharynx normal Neck trachea midline, no thyromegaly Respiratory normal respiratory effort, lungs clear to auscultation Cardiovascular RRR, no murmur, no edema Rate/Rhythm: regular rate and regular rhythm Gastrointestinal (Abdomen) normal bowel sounds, soft, nontender, no hepatosplenomegaly (except for tenderness in Left upper quadrant, no rebound tenderness) Musculoskeletal no cyanosis or clubbing, extremities motor strength 5/5 Skin no rashes, warm and dry Neurologic PERRL, EOMI, accommodation nl, no face palsy, no dysarthria Psychiatric A+Ox3, euthymic affect Lymphatic no cervical or axillary lymphadenopathy Discharge Data Allergies Allergy/AdvReac Type Severity Reaction Status Date / Time amoxicillin Allergy Intermediate rash Verified 09/21/22 14:04 Penicillins Allergy Intermediate rash Verified 09/21/22 14:04 Consultations 09/12/22 06:52 ED Decision to Admit Stat 09/12/22 07:30 Consult Gastroenterology Routine Procedures Performed Operation Date: 09/14/22 16:30 Actual Procedures p EGD Biopsy Cytology - Mt Connelly MD Ordered Studies 09/12/22 02:16 CT abd pelvis IV con only Stat Hospital Course (1) Intractable abdominal pain: Patient admitted with abdominal pain with history of Gastric bypass. Known to Dr. Hayden with previous EGD. Patient will be admitted under obs, may need repeat EGD. Given that pain occurs 20 minutes after eating or drinking, concern for the gastric pouch causing pain.. No need for ischemic workup as source is likely the gastric pouch. Patient will need to followup with his PCP and bariatric surgeon, Information provided to patient. Patient agreeable to discharge on 09/15 (2) Depression: resume home meds: cymbalta (3) Diabetes mellitus type 2 in obese: A1C is at goal. will monitor blood sugars (4) Hypertension: resume home meds and monitor (5) Sleep apnea: (6) Hx pulmonary embolism: on warfarin: will resume tomorrow. (7) GERD (gastroesophageal reflux disease): (8) Obesity, Class II, BMI 35-39.9: recommend lifestyle changes. Total Time Total Time Spent Total Time Spent (In Minutes): 32 Discharge Plan Discharge Items Patient Disposition: Home - Self-Care Reason For Visit: ABDOMINAL PAIN Discharge Diagnosis: abdominal pain. Activity: Resume your previous activity Non-emergency contact: Primary Care Provider Call non-emergency contact if: you have any medication questions Follow-up/Referrals: Diamond Fitzgerald MD [Other] - 12/30/22 10:00 am (Bariatric and General Surgery You were placed on a cancellation list- if a sooner appointment becomes available the office will contact you) Henry Prieto DO [Primary Care Provider] - 09/21/22 1:45 pm (APPOINTMENT WITH [facility] [place] [facility]) Diet: Regular Addtl Attending Provider Instructions: You will need to followup with Gastric Bariatric Surgeon. We scheduled a followup with you for December 30 with Diamond Fitzgerald from Bariatric Surgery. You will be on the cancellation list. Pending Studies at Discharge: No Stand-Alone Forms: My [employer], Smoking Cessation Medications and DC Order Prescriptions: New famotidine 20 mg Tablet 20 mg PO BID Qty: 60 0RF sucralfate [Carafate] 1 gram tablet 1 g PO ACHS 28 Days Qty: 28 0RF Continued Cosentyx Pen (2 Pens) 150 mg/mL pen injector 300 mg subcut .COMPLEX Qty: 6 3RF Rx Instructions: 300 mg every 4 weeks (on Svetlana's) for maintenance as directed. lisinopril 20 mg tablet 20 mg PO QAM Qty: 90 3RF gabapentin 300 mg capsule 300 mg PO TID Qty: 90 3RF duloxetine 40 mg capsule,delayed release(DR/EC) 40 mg PO DAILY Ozempic 0.25 mg or 0.5 mg (2 mg/3 mL) pen injector 0.5 mg subcut .weekly Qty: 3 1RF ferrous sulfate 325 mg (65 mg iron) Tablet 325 mg PO QDL Changed pantoprazole 40 mg tablet,delayed release (DR/EC) 40 mg PO BID Qty: 90 3RF acetaminophen 500 mg capsule 500 mg PO Q6H 90 Days Qty: 360 0RF Discontinued hydrochlorothiazide 25 mg tablet 25 mg PO QAM Qty: 90 3RF potassium chloride [Klor-Con M20] 20 mEq tablet,ER particles/crystals 20 meq PO QAM Qty: 90 3RF No Action warfarin 5 mg tablet See Rx Instructions PO UD Rx Instructions: 7.5mg q Mon, Wed, Fri and 5mg x 4 days days per [facility] orally use as directed; hydrochlorothiazide 25 mg tablet 25 mg PO DAILY Qty: 90 3RF potassium chloride 20 mEq tablet extended release 20 meq PO DAILY Qty: 90 3RF Discharge Orders: Discharge Order (Routine); Ordered 09/15/22 Ordered By: Reynaldo Ball/Other Patient Handouts: What to Know When TakingWarfarin Admission Data Admit Date/Time: 09/13/22 15:38 Attending Provider: Reynaldo Hobbs Admit Provider: Reynaldo Hobbs Primary Care Provider: Henry Prieto Other Providers: Alejandro Gonzales ; Bradley Brandon Jr Other Interventions: Discharge Summary Assessment (RN) Last Done: 09/15/22 11:21 Coding Level of Care Code 56297 INP/OBS DISCH >30 MIN Diagnoses Intractable abdominal pain R10.9 Depression F32.9 Diabetes mellitus type 2 in obese E11.69; E66.9 Hypertension I10 Sleep apnea G47.30 Hx pulmonary embolism Z86.711 GERD (gastroesophageal reflux disease) K21.9 Obesity, Class II, BMI 35-39.9 E66.9
== END 2022-09-15 11:45 | disposition home or self-care (01) | DRG 392 ==
LOC: ED 23:28 → 3N 23:28

== ENCOUNTER 2023-09-10 12:53 | Inpatient (IN) ==
[2023-09-10 14:08] LABS: Basophils # (auto) 0.04 K/uL (0.00-0.20); Basophils % (auto) 0.4 %; Eosinophils # (auto) 0.26 K/uL (0.00-0.50); Eosinophils % (auto) 2.9 %; Hematocrit (blood only) 42.5 % (42.0-52.0); Immature Granulocytes # (auto) 0.06 K/uL (0.01-0.20); Immature Granulocytes % (auto) 0.7 %; Lymphocytes # (auto) 1.45 K/uL (1.20-3.40); Lymphocytes % (auto) 16.3 %; Mean Corpuscular Hemoglobin 27.8 pg (25.0-34.0); Mean Corpuscular Hgb Conc 32.9 g/dL (32.0-36.0); Mean Corpuscular Volume 84.5 fL (80.0-100.0); Mean Platelet Volume 10.4 fL (9.4-12.4); Monocytes # (auto) 1.05 K/uL (0.11-0.59); Monocytes % (auto) 11.8 %; Neutrophils # (auto) 6.05 K/uL (1.40-6.50); Neutrophils % (auto) 67.9 %; Platelet Count 220 K/uL (130-400); RDW Coefficient of Variation 15.5 % (11.5-14.5); RDW Standard Deviation 46.3 fL (36.4-46.3); Red Blood Count 5.03 M/uL (4.70-6.10); White Blood Count 8.91 K/ul (4.8-10.8)
[2023-09-10 14:26] LABS: Appearance Urine Clear (Clear); Bilirubin Urine Negative (Negative); Blood Urine Negative (Negative); Color Urine Yellow; Glucose Urine UA 3+ (Negative); Ketones Urine Negative (Negative); Leukocyte Esterase Urine Negative (Negative); Nitrite Urine Negative (Negative); Protein Urine Negative (Negative); Specific Gravity Urine 1.016 (1.000-1.030); Urobilinogen Urine Negative (Negative); pH Urine 7.5 (4.5-7.5)
[2023-09-10 14:27] LABS: Alanine Aminotransferase 26 U/L (7-52); Albumin Globulin Ratio 1.1 (0.9-2); Albumin Level 3.9 gm/dl (3.4-5.0); Alkaline Phosphatase 75 U/L (34-104); Anion Gap 11 (3-11); Aspartate Aminotransferase 25 U/L (13-39); BUN Creatinine Ratio 15.7 (10-20); Bilirubin,Total 0.7 mg/dl (0.2-1.0); Blood Urea Nitrogen 20 mg/dl (6-23); Calcium 9.9 mg/dl (8.6-10.3); Carbon Dioxide 29 mmol/L (21-32); Chloride 101 mmol/L (98-107); Est GFR (African American) 62.7 ml/min; Est GFR (Non-African American) 54.1 ml/min; Globulin 3.4 gm/dl (2.5-4.0); Glucose 88 mg/dl (70-99(Fasting)); Magnesium 1.9 mg/dl (1.7-2.4); Potassium 3.1 mmol/L (3.5-5.1); Sodium 141 mmol/L (136-145); Total Protein 7.3 gm/dl (6.0-8.3)
[2023-09-10 14:39] LABS: Acetaminophen < 3 ug/ml (10-30); Salicylate < 3.0 mg/dl (3.0-30)
[2023-09-10 14:41] LABS: Thyroid Stimulating Hormone 1.866 uIu/ml (0.300-4.500)
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
[2023-09-10 14:50] LABS: Amphetamines+Metham, Urine Neg (Neg); Barbiturates, Urine Neg (Neg); Benzodiazepine, Urine Neg (Neg); Cocaine, Urine Neg (Neg); Fentanyl, Urine Neg (Neg); MDMA (Ecstacy), Urine Neg (Neg); Marijuana, Urine Neg (Neg); Methadone, Urine Neg (Neg); Opiate, Urine Neg (Neg); Phencyclidine, Urine Neg (Neg)
[2023-09-10 14:53] LABS: INR 1.5 (0.9-1.1); Partial Thromboplastin Time 28 Seconds (21-31); Prothrombin Time 15.9 Seconds (9.0-12.0)
--- NOTE | 2023-09-10 15:35 | CT Scan Report ---
HEAD CT NONCONTRAST CT DOSE: 625.8 mGy.cm HISTORY: Altered mental status. TECHNIQUE: Multiaxial CT images of the head were performed without the use of intravenous contrast. A utomated exposure control was utilized for this study. A dose lowering technique was utilized adheri ng to the principles of ALARA. Comparison: None. Findings: The paranasal sinuses and mastoid air cells are clear. The calvarium and skull base are int act. There is no mass, hematoma, midline shift, acute infarct. White matter hypodensity is nonspecifi c but suggestive of microvascular ischemic change. The ventricles and sulci demonstrate mild age-rela nnamdi involutional changes. Impression: No acute intracranial abnormality. ACT 112: Negative or not required by law. Electronically signed by: Masoud Navarro M.D. 09/10/2023 3:34 PM
[2023-09-10] MEDS: KETOROLAC TROMETHAMINE 15 MG/ML VIAL IV STA (15:46)
--- NOTE | 2023-09-10 15:57 | XRay Report ---
XR chest 1V portable HISTORY: weakness COMPARISON: Chest CTA 09/08/2023. FINDINGS: No pneumothorax. No pleural effusions. No focal lung consolidations to suggest a pneumonia. No evidence for pulmonary edema. The heart remains moderately enlarged. There are low lung volumes. No acute fractures. IMPRESSION: Stable cardiomegaly. Otherwise, no acute process within the chest. ACT 112: Negative or not required by law. Electronically signed by: Masoud Navarro M.D. 09/10/2023 3:56 PM
[2023-09-10] MEDS: GABAPENTIN 300 MG CAP PO SCH ×2 (17:04→22:30)
[2023-09-10] MEDS ORDERED: MELATONIN 3 MG TAB PO PRN (17:16)
[2023-09-10] MEDS ORDERED: POLYETHYLENE (MIRALAX) 17 GM PACK PO PRN (17:16)
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
[2023-09-10] MEDS: POTASSIUM CHLORIDE CRTAB 20 MEQ TABCR PO STA (18:22)
[2023-09-10] MEDS: ASPIRIN 81 MG ECTAB PO STA (18:22)
[2023-09-10] MEDS: MoRPHine SULFATE 2 MG/ML CARP IV PRN (18:22)
[2023-09-10] MEDS: ceFAZolin 1000MG 1,000 MG/7.5 ML SYR IV SCH (18:22)
[2023-09-10] MEDS: CLINDAMYCIN/D5W 300 MG/50 ML BAG IV SCH (18:22)
[2023-09-10] MEDS: OPTIRAY 320 125ml IV ONE (19:35)
[2023-09-10] MEDS ORDERED: ONDANSETRON 4 MG OD TAB PO PRN (21:33)
[2023-09-10] MEDS: WARFARIN SOD 7.5 MG TAB PO STA (22:26)
[2023-09-10] MEDS: PANTOprazole 40 MG TAB PO SCH (22:27)
--- NOTE | 2023-09-10 22:33 | CT Scan Report ---
CT angio chest w con CLINICAL HISTORY: chest pain TECHNIQUE: Multidetector row helical CT of the chest was performed with angiographic protocol. Ward l and sagittal reformations were obtained. Coronal and sagittal MIPS were obtained from the axial kiarra a set and were submitted for review. Automated dose lowering techniques and/or adjustment according to patient size were utilized for this exam. CT DOSE: 931.35 mGy.cm Comparison: Comparison is made to CT chest 09/08/2023 FINDINGS: Lungs and pleura: Normal. Heart and pericardium: Heart size is normal. No pericardial effusion. Vessels: No evidence of pulmonary embolism. Mediastinum and indu: Unremarkable. Chest wall and lower neck: Unremarkable. Abdomen: Hepatic steatosis is noted. Postsurgical changes of cholecystectomy and gastric bypass surge ry are seen. Bones: Degenerative changes in the thoracic spine. IMPRESSION: 1. No acute abnormality and in particular no evidence of pulmonary embolus. 2. Hepatic steatosis. ACT 112: Negative or not required by law. Electronically signed by: Cornelius Silva M.D. 09/10/2023 10:31 PM
[2023-09-11] MEDS: NYSTATIN CR 15 GM TUBE EXT SCH (00:05)
[2023-09-11 05:26] LABS: INR 2.4 (0.9-1.1); Prothrombin Time 24.5 Seconds (9.0-12.0)
[2023-09-11] MEDS: CHOLECALCIFEROL 25 MCG (1000 UNITS) TAB PO SCH (10:05)
[2023-09-11] MEDS: CYANOCOBALAMIN (B-12) 500 MCG TABLET PO SCH (10:05)
[2023-09-11] MEDS: FERROUS SULFATE 325 MG TAB PO SCH (10:05)
[2023-09-11] MEDS: CEROVITE ADV FORMULA TAB PO SCH (10:05)
[2023-09-11] MEDS: POTASSIUM CHLORIDE CRTAB 20 MEQ TABCR PO SCH (10:05)
[2023-09-11] MEDS: DULoxetine HCL 60 MG CAP PO SCH (10:05)
[2023-09-11] MEDS: lisinopril 5 MG TAB PO SCH (10:06)
[2023-09-11] MEDS: hydroCHLOROthiazide 25 MG TAB PO SCH (10:06)
--- NOTE | 2023-09-11 11:30 | Hospitalist Progress Note ---
Date of Service September 11, 2023 Assessment & Plan (1) Chest pain: Plan: Resolved. No acute EKG changes. Negative troponin. No evidence of acute coronary syndrome. Chest CTA negative for PE. (2) Depression: Plan: He has been seen by psychiatry. He is now on Abilify and Vistaril in addition to his other medications. He does not require inpatient psychiatric treatment at this time. (3) Cellulitis of right leg: Plan: Continue IV clindamycin, day 2. Wound care nurse consultation requested. Patient is allergic to penicillin (4) Hypertension: Plan: Stable. Continue current medical management (5) Diabetes mellitus type 2 in obese: Plan: Patient denies having diabetes, but it listed as his problem (6) Morbid obesity: Plan: History of gastric bypass surgery, and recent attempt to redo bypass surgery failed. BMI greater than 40. Significant weight loss recommended (7) Hx pulmonary embolism: Plan: Continue Coumadin therapy. Chest CTA negative for PE. Daily INR Plan To be determined. Physical therapy evaluation requested Admission and Anticipated Discharge Date Admission Date: September 10, 2023 Subjective Alert and oriented. The patient was seen by psychiatry and they recommended starting Abilify and Vistaril. Pastoral care has also been consulted along with the wound care nurse. He is now on oral potassium. Oxygen has been discontinued. INR 2.4 today. He remains on intravenous clindamycin, day 2. Review of Systems 2 Review of Systems: Constitutional-no fever or chills. Morbidly obese ENT-no blurred vision, no double vision, no epistaxis, no sore throat Respiratory-no cough, no wheezing, no shortness of breath Cardiac-no palpitations, no chest pain, no syncope GI-no nausea, vomiting, diarrhea, melena, hematochezia -no urinary retention, no urinary incontinence, no dysuria, no hematuria Musculoskeletal-no joint pain, no muscle tenderness Skin-evidence of chronic venous stasis with brawny induration bilateral lower extremities below the knees. He has chronic ulceration on the medial aspect of the right lower extremity with evidence of cellulitis Neuro-no isolated weakness, no paresthesia Psych-depressed affect. No anxiety Physical Exam 2 Physical Exam: General-alert and oriented x3, no fever, no chills. Morbidly obese HEENT-head atraumatic and normocephalic, pupils equal and reactive to light, extraocular muscles intact Neck-no lymphadenopathy or thyromegaly, trachea midline Chest-clear to auscultation. No rales, wheezing or rhonchi Cardiac-regular rate and rhythm, normal S1 and S2 Abdomen-normal bowel sounds, no hepatosplenomegaly Extremities-chronic venous stasis changes bilateral lower extremities below the knees with brawny induration. Chronic ulceration with associated cellulitis medial right lower extremity Neuro-cranial nerves II through XII intact, motor and sensory function within normal limits, strength symmetrical, no focal deficits Psych-depressed affect Results & Data Results & Data Vital Signs (Past 12 Hours) Vital Signs Pulse Pulse Resp BP BP Pulse Ox Pulse Ox 09/11/23 10:06 53 L 14 95 09/11/23 09:06 60 12 09/11/23 08:15 55 L 17 100 09/11/23 08:15 123/58 L 09/11/23 08:15 56 L 18 123/58 L 100 09/11/23 06:59 60 09/11/23 06:24 53 L 16 100 09/11/23 05:00 61 18 126/72 97 09/11/23 04:02 69 09/11/23 04:00 64 20 119/59 L 97 09/11/23 03:00 69 18 118/62 96 09/11/23 03:00 99 09/11/23 01:06 70 20 136/64 97 O2 Del Method O2 Del Method O2 Flow Rate 09/11/23 10:06 09/11/23 09:06 09/11/23 08:15 09/11/23 08:15 09/11/23 08:15 Nasal Cannula 2 09/11/23 06:59 09/11/23 06:24 09/11/23 05:00 Nasal Cannula 2 09/11/23 04:02 09/11/23 04:00 Nasal Cannula 2 09/11/23 03:00 Nasal Cannula 2 09/11/23 03:00 Room Air 09/11/23 01:06 Laboratory Results 09/10/23 13:39 09/10/23 13:39 PG Care Time/CCT Total # of Minutes Spent Total Time Spent with Patient: Total time spent is greater than 50% in coordination of care (as documented) at patient's floor/unit and/or counseling patient: Coding Level of Care Code 25457 SUB INP/OBS CARE 3/50MIN Diagnoses Chest pain R07.9 Chest pain type: unspecified Depression F32.9 Cellulitis of right leg L03.115 Hypertension I10 Diabetes mellitus type 2 in obese E11.69; E66.9 Morbid obesity E66.01 Hx pulmonary embolism Z86.711 (1) Chest pain Chest pain type: unspecified Qualified Code(s): R07.9 - Chest pain, unspecified
[2023-09-11] MEDS: hydrOXYzine HCl 25 MG TAB PO SCH (11:51)
[2023-09-11] MEDS: ARIPiprazole 5 MG TAB PO SCH (11:51)
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
[2023-09-11] MEDS: WARFARIN SOD 5 MG TAB PO SCH (16:58)
[2023-09-11] MEDS: LORATADINE 10 MG TAB PO PRN (23:03)
[2023-09-11] MEDS: MICONAZOLE NITRATE POWDER 85 GM EXT PRN (23:03)
[2023-09-12] MEDS: ACETAMINOPHEN 325 MG TAB PO PRN (06:13)
[2023-09-12] MEDS: MAGNESIUM HYDROXIDE SUSP 30 ML UDC PO PRN (06:13)
[2023-09-12 07:14] LABS: Calcium 8.7 mg/dl (8.6-10.3); Est GFR (African American) 62.7 ml/min; Est GFR (Non-African American) 54.1 ml/min; Potassium 3.3 mmol/L (3.5-5.1)
[2023-09-12 07:21] LABS: INR 2.5 (0.9-1.1); Prothrombin Time 24.9 Seconds (9.0-12.0)
[2023-09-12] MEDS: WARFARIN SOD 7.5 MG TAB PO SCH (16:24)
--- NOTE | 2023-09-12 16:53 | Hospitalist Progress Note ---
Date of Service September 12, 2023 Assessment & Plan (1) Chest pain: Plan: Chest pain, probably due to anxiety as serial troponin negative x 3 EKG without ischemic changes, CTA chest negative for PE or pneumonia Monitor on telemetry-no arrhythmias (2) Cellulitis of right leg: Plan: Not much improved and continues to be erythematous, large open wound, with peripheral edema chronic Stop clindamycin and start daptomycin and cefepime as he has a history of diabetes Continue daily wound care for right leg wound Follow CBC (3) Depression: Plan: Significant, seen by psychiatry and no need for inpatient hospitalization Continue home duloxetine 60 mg daily and psychiatry recommended adding Abilify 5 mg daily and Vistaril-this is helping so far Recommend therapy as an outpatient (4) Hypokalemia: Plan: Replace with oral potassium-likely related to HCTZ use Follow BMP and magnesium and replace as needed (5) Hypertension: Plan: Blood pressures are controlled Continue HCTZ with potassium replacement, lisinopril (6) Diabetes mellitus type 2 in obese: Plan: Patient denies having diabetes, but he has had hemoglobin A1c's of 6.4-6.5% within the last year HgbA1C in 04/2023 6.4% Needs dietary changes but no medications needed Presume gabapentin is for peripheral neuropathy? (7) Physical debility: Plan: He has had 2 falls recently-1 at home and 1 actually at the rehab he was at Obtain physical therapy consultation-recommending rehab OT ordered (8) GERD (gastroesophageal reflux disease): Plan: Continue PPI, no acute issues (9) Morbid obesity: Plan: History of gastric bypass surgery, and recent attempt to redo bypass surgery failed due to hypotension Follow-up with bariatric surgeon as scheduled as an outpatient (10) Sleep apnea: Plan: Order CPAP at 9 cm H2O which is what he uses at home (11) Hx pulmonary embolism: Plan: Continue Coumadin, monitor INR daily INR therapeutic today at 2.5 Plan DVT prophylaxis-Coumadin Disposition-continued stay for treatment of cellulitis, needs referrals to rehab Admission and Anticipated Discharge Date Admission Date: September 10, 2023 Subjective Patient reports ongoing pain in the right leg with the open wound. He does not feel ready to leave the hospital yet. He is agreeable to rehab placement. He is asking if he needs mental health hospitalization. He does feel more calm with the addition of the Abilify and Vistaril Telemetry with sinus rhythm and sinus bradycardia with rates in the 50s to 80s Physical Exam Constitutional: well developed and + morbidly obese; no acute distress Respiratory: normal respiratory effort, lungs clear to auscultation Cardiovascular: Rate/Rhythm: regular rate and regular rhythm Heart Sounds: no murmur Extremities: + edema (2+ pitting edema in the legs bilaterally) Gastrointestinal (Abdomen): Inspection/Auscultation: normal bowel sounds; + abdomen abnormal to inspection (Multiple laparoscopic incisional wounds healed with Dermabond) and abdomen not distended Percussion/Palpation: abdomen soft; abdomen nontender Skin: + wound (8 x 6 cm superficial wound righ t anterior leg) Psychiatric: Orientation: alert and oriented x 3 Affect: + anxious affect Results & Data Results & Data Vital Signs (Past 12 Hours) Vital Signs Temp Pulse Pulse Resp BP Pulse Ox O2 Del Method 09/12/23 14:54 36.5 C 84 18 104/66 94 Room Air 09/12/23 12:23 95 09/12/23 10:56 36.7 C 60 18 117/73 97 Room Air 09/12/23 07:51 62 09/12/23 07:51 Room Air 09/12/23 07:50 09/12/23 07:17 36.6 C 62 18 110/69 94 Room Air 09/12/23 06:16 128/81 O2 Del Method 09/12/23 14:54 09/12/23 12:23 09/12/23 10:56 09/12/23 07:51 09/12/23 07:51 09/12/23 07:50 Room Air 09/12/23 07:17 09/12/23 06:16 Laboratory Results BMP, INR reviewed PG Care Time/CCT Total # of Minutes Spent Total Time Spent with Patient: Total time spent is greater than 50% in coordination of care (as documented) at patient's floor/unit and/or counseling patient: Coding Level of Care Code 51278 SUB INP/OBS CARE 2/35MIN Diagnoses Chest pain R07.9 Chest pain type: unspecified Cellulitis of right leg L03.115 Depression F32.9 Hypokalemia E87.6 Hypertension I10 Diabetes mellitus type 2 in obese E11.69; E66.9 Physical debility R53.81 GERD (gastroesophageal reflux disease) K21.9 Morbid obesity E66.01 Sleep apnea G47.30 Hx pulmonary embolism Z86.711 (1) Chest pain Chest pain type: unspecified Qualified Code(s): R07.9 - Chest pain, unspecified
[2023-09-12] MEDS: CEFEPIME 2,000 MG in SYRINGE 0 ML IV SCH (18:08)
[2023-09-12] MEDS: DAPTOmycin 425 MG in SYRINGE 0 ML IV SCH (18:08)
[2023-09-13 07:22] LABS: C Reactive Protein 4.05 mg/dl (0-0.5); Calcium 8.4 mg/dl (8.6-10.3); Creatinine Clr Calc Pharmacy 68.5 ml/min; Est GFR (African American) 57.8 ml/min; Est GFR (Non-African American) 49.8 ml/min; Magnesium 2.1 mg/dl (1.7-2.4); Potassium 3.9 mmol/L (3.5-5.1)
[2023-09-13 07:23] LABS: Prothrombin Time 29.4 Seconds (9.0-12.0)
[2023-09-13 07:42] LABS: Basophils # (auto) 0.02 K/uL (0.00-0.20); Basophils % (auto) 0.3 %; Eosinophils # (auto) 0.59 K/uL (0.00-0.50); Hematocrit (blood only) 42.3 % (42.0-52.0); Hemoglobin 13.7 g/dl (14.0-18.0); Immature Granulocytes # (auto) 0.04 K/uL (0.01-0.20); Immature Granulocytes % (auto) 0.5 %; Lymphocytes # (auto) 0.93 K/uL (1.20-3.40); Lymphocytes % (auto) 12.6 %; Mean Corpuscular Hemoglobin 27.7 pg (25.0-34.0); Mean Corpuscular Hgb Conc 32.4 g/dL (32.0-36.0); Mean Corpuscular Volume 85.5 fL (80.0-100.0); Monocytes # (auto) 0.65 K/uL (0.11-0.59); Monocytes % (auto) 8.8 %; Neutrophils # (auto) 5.13 K/uL (1.40-6.50); Neutrophils % (auto) 69.8 %; RDW Coefficient of Variation 15.5 % (11.5-14.5); RDW Standard Deviation 47.8 fL (36.4-46.3); Red Blood Count 4.95 M/uL (4.70-6.10); White Blood Count 7.36 K/ul (4.8-10.8)
[2023-09-13] MEDS: oxyCODONE HCL IR 5 MG TAB (IMMEDIATE RELEASE) PO PRN (12:36)
--- NOTE | 2023-09-13 18:23 | Hospitalist Progress Note ---
Date of Service September 13, 2023 Assessment & Plan (1) Chest pain: Plan: Presented with atypical chest pain, probably due to anxiety as serial troponin negative x 3 EKG without ischemic changes, CTA chest negative for PE or pneumonia Monitor on telemetry-no arrhythmias (2) Cellulitis of right leg: Plan: Right lower extremity wound with trauma from fall and had blister debrided in the office on the day of admission Cellulitis was not much improved with ongoing significant erythema, pain, large open wound, with peripheral edema chronic after being on clindamycin for 2 to 3 days On 09/11, stopped clindamycin and started daptomycin/cefepime as he has a history of diabetes Continue daily wound care for right leg wound Afebrile, no leukocytosis, CRP elevated at 4 Follow CBC, CRP Added on oxycodone as needed for leg pain Recommend elevation of right leg (3) Depression: Plan: Significant, seen by psychiatry and no need for inpatient hospitalization Continue home duloxetine 60 mg daily and psychiatry recommended adding Abilify 5 mg daily and Vistaril-this is helping so far but remains with a lot of anxiety Recommend therapy as an outpatient-information provided to him by psychiatric nurse liaison for outpatient therapy (4) Hypokalemia: Plan: Improved with repletion-likely related to HCTZ use Continue to replace with oral potassium Follow BMP and magnesium (5) Hypertension: Plan: Blood pressures are mildly elevated but could be related to pain Continue HCTZ with potassium replacement, lisinopril (6) Diabetes mellitus type 2 in obese: Plan: Patient denies having diabetes, but he has had hemoglobin A1c's of 6.4-6.5% within the last year HgbA1C in 04/2023 6.4% Needs dietary changes but no medications needed Presume gabapentin is for peripheral neuropathy? (7) Physical debility: Plan: He has had 2 falls recently-1 at home and 1 actually at the rehab he was at Obtain physical therapy consultation-recommending rehab OT ordered (8) GERD (gastroesophageal reflux disease): Plan: Continue PPI, no acute issues (9) Morbid obesity: Plan: History of gastric bypass surgery, and recent attempt to redo bypass surgery failed due to hypotension Follow-up with bariatric surgeon as scheduled as an outpatient (10) Sleep apnea: Plan: Order CPAP at 9 cm H2O which is what he uses at home (11) Hx pulmonary embolism: Plan: Continue Coumadin, monitor INR daily INR therapeutic today at 3.0 Plan DVT prophylaxis-Coumadin Disposition-continued stay for treatment of cellulitis, referrals to rehab have been made-likely stable for discharge on 09/13 Admission and Anticipated Discharge Date Admission Date: September 10, 2023 Anticipated date of discharge: 09/14/23 Subjective Patient reports significant pain in the right leg at the site of his wound especially after dressing change today. He is also reporting increased swelling in that leg. He remains anxious and asks about what the plan is for disposition. Telemetry with normal sinus rhythm and rates in the 70s to 80s He is concerned about his blood pressure being elevated. He did walk today with physical therapy and reports feeling unsteady and is afraid he will fall again. Physical Exam Constitutional: well developed and + morbidly obese; no acute distress Respiratory: normal respiratory effort, lungs clear to auscultation Cardiovascular: Rate/Rhythm: regular rate and regular rhythm Heart Sounds: no murmur Extremities: + edema (2+ pitting edema in the legs bilaterally) Gastrointestinal (Abdomen): Inspection/Auscultation: normal bowel sounds; + abdomen abnormal to inspection (Multiple laparoscopic incisional wounds healed with Dermabond) and abdomen not distended Percussion/Palpation: abdomen soft; abdomen nontender Skin: + rash (Multiple scaly plaques on head a nd arms and legs), + wound (right anterior leg with dressing in place not removed) and + erythema (Right proximal and distal leg circumferentially) Psychiatric: Orientation: alert and oriented x 3 Affect: + anxious affect Results & Data Results & Data Vital Signs (Past 12 Hours) Vital Signs Temp Pulse Pulse Resp BP Pulse Ox O2 Del Method 09/13/23 17:00 72 09/13/23 16:18 36.3 C L 80 18 149/77 H 95 Room Air 09/13/23 11:27 36.3 C L 72 18 122/74 96 Room Air 09/13/23 07:24 36.9 C 79 18 111/74 95 Room Air 09/13/23 07:00 67 09/13/23 07:00 O2 Del Method 09/13/23 17:00 09/13/23 16:18 09/13/23 11:27 09/13/23 07:24 09/13/23 07:00 09/13/23 07:00 Room Air Laboratory Results CBC, BMP, INR, CRP reviewed PG Care Time/CCT Total # of Minutes Spent Total Time Spent with Patient: Total time spent is greater than 50% in coordination of care (as documented) at patient's floor/unit and/or counseling patient: Coding Level of Care Code 41578 SUB INP/OBS CARE 2/35MIN Diagnoses Chest pain R07.9 Chest pain type: unspecified Cellulitis of right leg L03.115 Depression F32.9 Hypokalemia E87.6 Hypertension I10 Diabetes mellitus type 2 in obese E11.69; E66.9 Physical debility R53.81 GERD (gastroesophageal reflux disease) K21.9 Morbid obesity E66.01 Sleep apnea G47.30 Hx pulmonary embolism Z86.711 (1) Chest pain Chest pain type: unspecified Qualified Code(s): R07.9 - Chest pain, unspecified
--- NOTE | 2023-09-13 21:19 | Electrocardiogram Report ---
Test Reason : Blood Pressure : / mmHG Vent. Rate : 056 BPM Atrial Rate : 056 BPM P-R Int : 204 ms QRS Dur : 084 ms QT Int : 404 ms P-R-T Axes : -12 041 014 degrees QTc Int : 389 ms Sinus bradycardia with Premature atrial complexes Otherwise normal ECG When compared with ECG of 08-SEP-2023 09:30, No significant change was found Confirmed by Juan Ramon Hancock ([id number]) on 09/13/2023 9:19:03 PM Referred By: REFERRED SELF Confirmed By:Juan Ramon Hancock
[2023-09-14 07:01] LABS: Basophils # (auto) 0.04 K/uL (0.00-0.20); Basophils % (auto) 0.4 %; Eosinophils # (auto) 0.68 K/uL (0.00-0.50); Hematocrit (blood only) 42.9 % (42.0-52.0); Hemoglobin 13.8 g/dl (14.0-18.0); Immature Granulocytes # (auto) 0.05 K/uL (0.01-0.20); Immature Granulocytes % (auto) 0.5 %; Lymphocytes # (auto) 1.51 K/uL (1.20-3.40); Lymphocytes % (auto) 15.5 %; Mean Corpuscular Hemoglobin 27.9 pg (25.0-34.0); Mean Corpuscular Hgb Conc 32.2 g/dL (32.0-36.0); Mean Corpuscular Volume 86.8 fL (80.0-100.0); Mean Platelet Volume 10.4 fL (9.4-12.4); Monocytes # (auto) 0.81 K/uL (0.11-0.59); Monocytes % (auto) 8.3 %; Neutrophils # (auto) 6.66 K/uL (1.40-6.50); Neutrophils % (auto) 68.3 %; Platelet Count 232 K/uL (130-400); RDW Coefficient of Variation 15.6 % (11.5-14.5); RDW Standard Deviation 49.1 fL (36.4-46.3); Red Blood Count 4.94 M/uL (4.70-6.10); White Blood Count 9.75 K/ul (4.8-10.8)
[2023-09-14 07:02] LABS: INR 2.7 (0.9-1.1); Prothrombin Time 27.2 Seconds (9.0-12.0)
[2023-09-14 07:10] LABS: BUN Creatinine Ratio 15.8 (10-20); C Reactive Protein 4.37 mg/dl (0-0.5); Calcium 8.8 mg/dl (8.6-10.3); Creatinine Clr Calc Pharmacy 77.9 ml/min; Est GFR (African American) 67.2 ml/min; Potassium 4.1 mmol/L (3.5-5.1)
[2023-09-14] MEDS: ONDANSETRON INJ 2 MG/ML 2 ML VIAL IV PRN (08:28)
--- NOTE | 2023-09-14 16:28 | Hospitalist Progress Note ---
Date of Service September 14, 2023 Assessment & Plan (1) Cellulitis of right leg: Plan: Right lower extremity wound with trauma from fall and had blister debrided in the office on the day of admission Cellulitis was not much improved with ongoing significant erythema, pain, large open wound, with peripheral edema chronic after being on clindamycin for 2 to 3 days On 09/11, stopped clindamycin and started daptomycin/cefepime as he has a history of diabetes and prior cultures with MSSA seems to be improving on 09/13, with copious serous fluid, +RLE edema Continue daily wound care for right leg wound--> Afebrile, no leukocytosis, CRP elevated at 4 and stable Follow CBC, CRP Continue oxycodone as needed for leg pain Recommend elevation of right leg as much as possible Continue Cefepime and Dapto for now, convert to po abx on discharge to complete 10 days (2) Chest pain: Plan: Presented with atypical chest pain, probably due to anxiety as serial troponin negative x 3 EKG without ischemic changes, CTA chest negative for PE or pneumonia Monitor on telemetry-no arrhythmias--> can downgrade off tele (3) Depression: Plan: Significant, seen by psychiatry and no need for inpatient hospitalization Continue home duloxetine 60 mg daily and psychiatry recommended adding Abilify 5 mg daily and Vistaril-this is helping so far but remains with a lot of anxiety over personal matters-see Psych nurse liaison notes Recommend therapy as an outpatient-information provided to him by psychiatric nurse liaison for outpatient therapy (4) Hypokalemia: Plan: Improved with repletion-likely related to HCTZ use Continue to replace with oral potassium Follow BMP and magnesium (5) Hypertension: Plan: Blood pressures now better controlled likely now that pain better controlled Continue HCTZ with potassium replacement, lisinopril (6) Diabetes mellitus type 2 in obese: Plan: Patient denies having diabetes, but he has had hemoglobin A1c's of 6.4-6.5% within the last year HgbA1C in 04/2023 6.4% Needs dietary changes but no medications needed Presume gabapentin is for peripheral neuropathy? 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 He has been sitting most of the day and worked with PT today. No other concerns. He is eating well, moving bowels regularly Tele with SB, NSR, rates 70-80s Physical Exam Constitutional: well developed and + morbidly obese; no acute distress Respiratory: normal respiratory effort, lungs clear to auscultation Cardiovascular: Rate/Rhythm: regular rate and regular rhythm Heart Sounds: no murmur Extremities: + edema (1+ pitting edema in the RLE,trace left leg) Gastrointestinal (Abdomen): Inspection/Auscultation: normal bowel sounds; + abdomen abnormal to inspection (Multiple laparoscopic incisional wounds healed with Dermabond) and abdomen not distended Percussion/Palpation: abdomen soft; abdomen nontender Skin: + rash (Multiple scaly plaques on head a nd arms and legs), + wound (right anterior leg 9x9cm,copious serous drainage,surrounding erythema) and + erythema (Right proximal and distal leg circumferentially) also with chronic venous stasis changes legs bilat Psychiatric: Orientation: alert and oriented x 3 Results & Data Results & Data Vital Signs (Past 12 Hours) Vital Signs Temp Pulse Pulse Resp BP BP Pulse Ox 09/14/23 15:41 36.2 C L 87 18 120/76 97 09/14/23 15:37 85 09/14/23 11:30 36.3 C L 89 18 104/58 L 94 09/14/23 09:46 67 09/14/23 07:45 09/14/23 07:43 36.5 C 78 18 120/71 98 O2 Del Method 09/14/23 15:41 Room Air 09/14/23 15:37 09/14/23 11:30 Room Air 09/14/23 09:46 09/14/23 07:45 Room Air 09/14/23 07:43 Room Air Laboratory Results CBC, BMP, INR, CRP reviewed PG Care Time/CCT Total # of Minutes Spent Total Time Spent with Patient: Total time spent is greater than 50% in coordination of care (as documented) at patient's floor/unit and/or counseling patient: Coding Level of Care Code 02165 SUB INP/OBS CARE 2/35MIN Diagnoses Cellulitis of right leg L03.115 Chest pain R07.9 Chest pain type: unspecified Depression F32.9 Hypokalemia E87.6 Hypertension I10 Diabetes mellitus type 2 in obese E11.69; E66.9 Physical debility R53.81 GERD (gastroesophageal reflux disease) K21.9 Morbid obesity E66.01 Sleep apnea G47.30 Hx pulmonary embolism Z86.711 (2) Chest pain Chest pain type: unspecified Qualified Code(s): R07.9 - Chest pain, unspecified
[2023-09-14] MEDS: hydrOXYzine HCl 10 MG TAB PO ONE (20:19)
[2023-09-14] MEDS: MAGNESIUM SULFATE / D5W 1 GM/100 ML BAG IV ONE (21:51)
--- NOTE | 2023-09-14 22:59 | Ultrasound Report ---
Exam(s): US VENOUS RIGHT LOWER EXTREMITY EXAM: US Duplex Right Lower Extremity Veins CLINICAL HISTORY: Reason for exam: worsening pain/swelling/redness. TECHNIQUE: Real-time duplex ultrasound scan of the right lower extremity veins integrating B-mode two-dimensional vascular structure, Doppler spectral analysis, color flow Doppler imaging and compression. COMPARISON: No relevant prior studies available. FINDINGS: Deep veins: Unremarkable. No DVT in the visualized common femoral, femoral, proximal deep femoral or popliteal veins. The veins demonstrate normal color flow, are normally compressible, with normal phasic flow and/or augmentation response. Superficial veins: Unremarkable. No thrombus in the visualized great saphenous vein. Soft tissues: Nix's cyst measuring 2.9 x 6.1 x 1.1 cm. Subcutaneous edema in the calf. IMPRESSION: 1. No evidence of acute DVT. 2. Nix's cyst. Subcutaneous edema in the calf. Cannot exclude a leaking Nix's cyst. Electronically signed by: Gladys Petersen M.D. 09/14/23 22:58 PM
[2023-09-15] MEDS: hydrOXYzine HCl 10 MG TAB PO SCH (06:03)
[2023-09-15 07:03] LABS: Basophils # (auto) 0.04 K/uL (0.00-0.20); Basophils % (auto) 0.4 %; Eosinophils # (auto) 0.59 K/uL (0.00-0.50); Eosinophils % (auto) 6.3 %; Hematocrit (blood only) 41.1 % (42.0-52.0); Hemoglobin 13.1 g/dl (14.0-18.0); Immature Granulocytes # (auto) 0.06 K/uL (0.01-0.20); Immature Granulocytes % (auto) 0.6 %; Lymphocytes # (auto) 1.18 K/uL (1.20-3.40); Lymphocytes % (auto) 12.6 %; Mean Corpuscular Hemoglobin 27.6 pg (25.0-34.0); Mean Corpuscular Hgb Conc 31.9 g/dL (32.0-36.0); Mean Corpuscular Volume 86.5 fL (80.0-100.0); Mean Platelet Volume 10.4 fL (9.4-12.4); Monocytes # (auto) 0.89 K/uL (0.11-0.59); Monocytes % (auto) 9.5 %; Neutrophils # (auto) 6.57 K/uL (1.40-6.50); Neutrophils % (auto) 70.6 %; Platelet Count 225 K/uL (130-400); RDW Coefficient of Variation 15.6 % (11.5-14.5); RDW Standard Deviation 49.1 fL (36.4-46.3); Red Blood Count 4.75 M/uL (4.70-6.10); White Blood Count 9.33 K/ul (4.8-10.8)
[2023-09-15 07:25] LABS: BUN Creatinine Ratio 14.8 (10-20); C Reactive Protein 3.57 mg/dl (0-0.5); Calcium 8.4 mg/dl (8.6-10.3); Creatinine Clr Calc Pharmacy 62.5 ml/min; Est GFR (African American) 51.7 ml/min; Est GFR (Non-African American) 44.6 ml/min; Magnesium 2.3 mg/dl (1.7-2.4); Potassium 4.3 mmol/L (3.5-5.1)
[2023-09-15 07:27] LABS: Prothrombin Time 29.8 Seconds (9.0-12.0)
--- NOTE | 2023-09-15 18:07 | Hospitalist Progress Note ---
Date of Service September 15, 2023 Assessment & Plan (1) Cellulitis of right leg: Plan: Improving/resolving Continue Cefepime and Dapto for now, convert to po abx on discharge to complete 10 days in total of Rx Appreciate wound care assistance for ulceration on right thompson (2) Chest pain: Plan: Presented with atypical chest pain, probably due to anxiety as serial troponin negative x 3 EKG without ischemic changes, CTA chest negative for PE or pneumonia Tele had been normal the entire stay (3) Depression: Plan: Significant, seen by psychiatry and no need for inpatient hospitalization Continue home duloxetine 60 mg daily and psychiatry recommended adding Abilify 5 mg daily and Vistaril-this is helping so far but remains with a lot of anxiety over personal matters-see Psych nurse liaison notes Recommend therapy as an outpatient-information provided to him by psychiatric nurse liaison for outpatient therapy (4) Hypokalemia: Plan: replaced resolved (5) Hypertension: Plan: Continue HCTZ Continue lisinopril (6) Diabetes mellitus type 2 in obese: Plan: Patient denies having diabetes, but he has had hemoglobin A1c's of 6.4-6.5% within the last year HgbA1C in 04/2023 6.4% Check repeat a1c in am (7) Physical debility: Plan: He has had 2 falls recently-1 at home and 1 actually at the rehab he was at Cont PT/OT - recommending rehab Referrals pending (8) GERD (gastroesophageal reflux disease): Plan: Continue PPI (9) Morbid obesity: Plan: History of gastric bypass surgery, and recent attempt to redo bypass surgery failed due to hypotension (at 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 Continue Coumadin, monitor INR daily INR therapeutic today at 3 (12) Lumbar radiculopathy, right: Plan: pt's right distal leg pain radiating into the foot is c/w S1 radiculopathy; possibly L5 radiculopathy last pain management note mentions a repeat epidural injection at L5-S1 he is already on gabapentin 300mg TID + cymbalta 60mg daily could consider increasing gabapentin once acute infectious issues are resolved would get him back to pain management for consideration of another epidural pain shot I do not think the right-sided Nix's cyst seen on doppler is causing the pain he had last night The nix's cyst is 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 (13) Confusion: Plan: subacute CVA? metabolic due to infection? other? 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" denies calf pain he also reports feeling "fuzzy" and forgetful present for several months especially since his hospitalization in [place] has noted the mild confusion pt reports eating well Review of Systems Review of Systems: gen - no fevers or chills cv - no chest pain pulm - no dyspnea GI - no N/V Physical Exam Physical Exam: gen - obese, sitting at side of bed, NAD neck - no JVD mouth - MMM heart - RRR, s1, s2, no murmur lungs - CTA b/l abd - soft NT ND BS+ ext - <1+ edema b/l shins/ankles/feet; pulses b/l feet 2+ skin - dressings intact right thompson; venous stasis changes/hyperpigmentation b/l shins psych - a/o x 3; occasionally has difficulty finding certain words Results & Data Results & Data Vital Signs (Past 12 Hours) Vital Signs Temp Pulse Pulse Resp BP Pulse Ox O2 Del Method 09/15/23 15:30 36.3 C L 92 H 20 161/73 H 95 Room Air 09/15/23 15:22 85 09/15/23 11:16 36.2 C L 79 20 125/76 96 Room Air 09/15/23 08:16 36.3 C L 73 20 109/66 97 Room Air 09/15/23 07:18 Room Air 09/15/23 07:18 81 Laboratory Results Laboratory Results - last 24 hr 09/15/23 06:28 WBC 9.33 RBC 4.75 Hgb 13.1 L Hct 41.1 L MCV 86.5 MCH 27.6 MCHC 31.9 L RDW Std Deviation 49.1 H RDW Coeff of Monique 15.6 H Plt Count 225 MPV 10.4 Immature Gran % (Auto) 0.6 Neut % (Auto) 70.6 Lymph % (Auto) 12.6 Jefferson % (Auto) 9.5 Eos % (Auto) 6.3 Baso % (Auto) 0.4 Neut # (Auto) 6.57 H Lymph # (Auto) 1.18 L Jefferson # (Auto) 0.89 H Eos # (Auto) 0.59 H Baso # (Auto) 0.04 Immature Gran # (Auto) 0.06 PT 29.8 H INR 3.0 H Sodium 134 L Potassium 4.3 Chloride 98 Carbon Dioxide 29 Anion Gap 7 BUN 22 Creatinine 1.49 H Est Cr Clr Drug Dosing 62.5 Est GFR ( Amer) 51.7 Est GFR (Non-Af Amer) 44.6 BUN/Creatinine Ratio 14.8 Glucose 125 H Calcium 8.4 L Magnesium 2.3 C-Reactive Protein 3.57 H PG Care Time/CCT Total # of Minutes Spent Total Time Spent with Patient: Total time spent is greater than 50% in coordination of care (as documented) at patient's floor/unit and/or counseling patient: Coding Level of Care Code 01971 SUB INP/OBS CARE 3/50MIN Diagnoses Cellulitis of right leg L03.115 Chest pain R07.9 Chest pain type: unspecified Depression F32.9 Hypokalemia E87.6 Hypertension I10 Diabetes mellitus type 2 in obese E11.69; E66.9 Physical debility R53.81 GERD (gastroesophageal reflux disease) K21.9 Morbid obesity E66.01 Sleep apnea G47.30 Hx pulmonary embolism Z86.711 Lumbar radiculopathy, right M54.16 Confusion R41.0 (2) Chest pain Chest pain type: unspecified Qualified Code(s): R07.9 - Chest pain, unspecified
--- NOTE | 2023-09-15 21:00 | Magnetic Resonance Report ---
MR brain wo con CLINICAL HISTORY: intermittent confusion TECHNIQUE: Multiplanar and multisequence MR images of the brain were obtained without intravenous con trast. Comparison: Comparison is made to CT head 09/10/2023 FINDINGS: No abnormal restricted diffusion is identified. Foci of T2 and FLAIR hyperintensity are noted in the paraventricular areas consistent with chronic small vessel ischemic disease. Ex vacuo ventriculomegal y and sulcal enlargement is noted compatible with diffuse volume loss. No mass is seen. There is no m ass effect or midline shift. There is no evidence of acute intraparenchymal hemorrhage. No extra axia l fluid collections are seen. The corpus callosum, pituitary gland, and cerebellar tonsils appear herminia ssly unremarkable. Flow voids of the major intracranial arterial vessels are identified. The imaged portions of the para nasal sinuses, mastoid air cells, and orbits are unremarkable. Hyperostosis frontalis is seen. IMPRESSION: No acute abnormality and in particular no evidence of acute infarct. ACT 112: Negative or not required by law. Electronically signed by: Cornelius Silva M.D. 09/15/2023 8:58 PM
[2023-09-16 06:47] LABS: INR 3.5 (0.9-1.1)
[2023-09-16 06:49] LABS: Calcium 8.9 mg/dl (8.6-10.3); Potassium 4.1 mmol/L (3.5-5.1)
[2023-09-16 06:55] LABS: BUN Creatinine Ratio 15.4 (10-20); Creatinine Clr Calc Pharmacy 71.7 ml/min; Est GFR (Non-African American) 52.6 ml/min
[2023-09-16 07:12] LABS: Estimated Average Glucose 137 mg/dl; Hemoglobin A1C 6.4 % (4.5-5.6)
--- NOTE | 2023-09-16 16:17 | XRay Report ---
CHEST AND ABDOMEN 2 VIEWS HISTORY: lower abdominal discomforts; constipation? COMPARISON: Chest 09/10/2023. Abdomen and pelvis CT 09/12/2022. FINDINGS: No pneumothorax. No pleural effusions. The lungs are clear. The cardiac silhouette remains mildly enlarged. No acute fractures identified. Surgical clips and suture material again noted within the upper abdomen. No pneumoperitoneum. No pneu matosis. No renal or ureteral calculi. No dilated loops of bowel to suggest an obstruction. Moderate to large amount of well-formed stool seen throughout the colon and rectum. IMPRESSION: 1. No acute process within the chest. 2. Stable cardiomegaly. 3. Moderate to large amount of well-formed stool seen throughout the colon and rectum. ACT 112: Negative or not required by law. Electronically signed by: Masoud Navarro M.D. 09/16/2023 4:15 PM
[2023-09-16] MEDS: bisacodyL 5 MG TABEC PO ONE (19:45)
[2023-09-16] MEDS: POLYETHYLENE (MIRALAX) 17 GM PACK PO SCH (19:47)
--- NOTE | 2023-09-16 20:01 | Hospitalist Progress Note ---
Date of Service September 16, 2023 Assessment & Plan (1) Cellulitis of right leg: Plan: Improving/resolving Continue Cefepime and Dapto for now, convert to po abx on discharge to complete 10 days in total of Rx Appreciate wound care assistance for ulceration on right thompson (2) Chest pain: Plan: Presented with atypical chest pain, probably due to anxiety as serial troponin negative x 3 EKG without ischemic changes, CTA chest negative for PE or pneumonia Tele had been normal the entire stay (3) Depression: Plan: Significant, seen by psychiatry and no need for inpatient hospitalization Continue home duloxetine 60 mg daily and psychiatry recommended adding Abilify 5 mg daily and Vistaril-this is helping so far but remains with a lot of anxiety over personal matters-see Psych nurse liaison notes Recommend therapy as an outpatient-information provided to him by psychiatric nurse liaison for outpatient therapy (4) Hypokalemia: Plan: replaced resolved (5) Hypertension: Plan: Continue HCTZ Continue lisinopril (6) Diabetes mellitus type 2 in obese: Plan: Patient denies having diabetes, but he has had hemoglobin A1c's of 6.4-6.5% within the last year HgbA1C in 04/2023 6.4% repeat a1c 6.4% today (7) Physical debility: Plan: He has had 2 falls recently-1 at home and 1 actually at the rehab he was at [facility] PT/OT - recommending rehab Referral to [facility] pending (8) GERD (gastroesophageal reflux disease): Plan: Continue PPI (9) Morbid obesity: Plan: History of gastric bypass surgery, and recent attempt to redo bypass surgery failed due to hypotension (at [facility]) Follow-up with bariatric surgeon as scheduled as an outpatient BMI 42.5 (10) Sleep apnea: Plan: Continue CPAP at 9 cm H2O (11) Hx pulmonary embolism: Plan: 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 Continue Coumadin, monitor INR daily INR today is >3 hold coumadin today; repeat INR am (12) Lumbar radiculopathy, right: Plan: pt's right distal leg pain radiating into the foot is c/w S1 radiculopathy; possibly L5 radiculopathy last pain management note mentions a repeat epidural injection at L5-S1 he is already on gabapentin 300mg TID + cymbalta 60mg daily could consider increasing gabapentin once acute infectious issues are resolved would get him back to pain management for consideration of another epidural pain shot I do not think the right-sided Nix's cyst seen on doppler is causing the pain he had last night The nix's cyst is 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 (13) Confusion: Plan: checked MRI brain - no subacute or chronic CVA however, considerable atrophy may be having low-grade encephalopathy in setting of his RLE cellulitis and recurrent hospitalizations (14) Constipation: Plan: likely cause of intermittent lower abd pain abd x-rays today with mod-severe constipation dulcolax now miralax for maintenance start senna tomorrow for maintenance Plan DVT prophylaxis - coumadin dispo - rehab, awaiting placement at [facility] Admission and Anticipated Discharge Date Admission Date: September 10, 2023 Subjective tele overnight wnl pt reports on/off lower abdominal pain for several months denies UPPER abd pain or reflux symptoms last BM several days ago right distal leg pain - had pain again overnight but none today we discussed that the auth for [facility] is still pending Review of Systems Review of Systems: gen - no fevers cv - no chest pain pulm - no dyspnea; worked with PT; no CARL GI - no abd pain today or N/V Physical Exam Physical Exam: gen - obese, laying in bed comfortably, NAD neck - no JVD mouth - MMM heart - RRR, s1, s2, no murmur lungs - CTA b/l abd - soft NT ND BS+ ext - trace edema b/l shins/ankles/feet; pulses b/l feet 2+ skin - dressings intact right thompson; venous stasis changes/hyperpigmentation b/l shins; no cellulitis RLE psych - a/o x 3 Results & Data Results & Data Vital Signs (Past 12 Hours) Vital Signs Temp Pulse Pulse Resp BP Pulse Ox O2 Del Method 09/16/23 19:27 36.3 C L 85 16 108/68 95 Room Air 09/16/23 16:40 36.3 C L 91 H 16 139/80 97 Room Air 09/16/23 15:29 77 09/16/23 11:36 36.5 C 82 16 118/66 95 Room Air Laboratory Results Laboratory Results - last 24 hr 09/16/23 05:53 PT 34.0 H INR 3.5 H Sodium 134 L Potassium 4.1 Chloride 97 L Carbon Dioxide 29 Anion Gap 8 BUN 20 Creatinine 1.30 Est Cr Clr Drug Dosing 71.7 Est GFR ( Amer) 61.0 Est GFR (Non-Af Amer) 52.6 BUN/Creatinine Ratio 15.4 Glucose 125 H Estimat Average Glucose 137 Hemoglobin A1c 6.4 H Calcium 8.9 Diagnostic Findings Brain MRI 09/15/23 18:06 MR brain wo con CLINICAL HISTORY: intermittent confusion TECHNIQUE: Multiplanar and multisequence MR images of the brain were obtained without intravenous contrast. Comparison: Comparison is made to CT head 09/10/2023 FINDINGS: No abnormal restricted diffusion is identified. Foci of T2 and FLAIR hyperi ntensity are noted in the paraventricular areas consistent with chronic small vessel ischemic disease. Ex vacuo ventriculomegaly and sulcal enlargement is noted compatible with diffuse volume loss. No mass is seen. There is no mass effect or midline shift. There is no evidence of acute intraparenchymal hemorrhage. No extra axial fluid collections are seen. The corpus callosum, pituitary gland, and cerebellar tonsils appear grossly unremarkable. Flow voids of the major intracranial arterial vessels are identified. The imaged portions of the paranasal sinuses, mastoid air cells, and orbits are unremarkable. Hyperostosis frontalis is seen. IMPRESSION: No acute abnormality and in particular no evidence of acute infarct. ACT 112: Negative or not required by law. Electronically signed by: Cornelius Silva M.D. 09/15/2023 8:58 PM Chest/Abdomen X-ray 09/16/23 13:59 CHEST AND ABDOMEN 2 VIEWS HISTORY: lower abdominal discomforts; constipation? COMPARISON: Chest 09/10/2023. Abdomen and pelvis CT 09/12/2022. FINDINGS: No pneumothorax. No pleural effusions. The lungs are clear. The cardiac silhouette remains mildly enlarged. No acute fractures identified. Surgical clips and suture material again noted within the upper abdomen. No pneumoperitoneum. No pneumatosis. No renal or ureteral calculi. No dilated loops of bowel to suggest an obstruction. Moderate to large amount of well-formed stool seen throughout the colon and rectum. IMPRESSION: 1. No acute process within the chest. 2. Stable cardiomegaly. 3. Moderate to large amount of well-formed stool seen throughout the colon and rectum. ACT 112: Negative or not required by law. Electronically signed by: Masoud Navarro M.D. 09/16/2023 4:15 PM PG Care Time/CCT Total # of Minutes Spent Total Time Spent with Patient: Total time spent is greater than 50% in coordination of care (as documented) at patient's floor/unit and/or counseling patient: Coding Level of Care Code 74337 SUB INP/OBS CARE 2/35MIN Diagnoses Cellulitis of right leg L03.115 Chest pain R07.9 Chest pain type: unspecified Depression F32.9 Hypokalemia E87.6 Hypertension I10 Diabetes mellitus type 2 in obese E11.69; E66.9 Physical debility R53.81 GERD (gastroesophageal reflux disease) K21.9 Morbid obesity E66.01 Sleep apnea G47.30 Hx pulmonary embolism Z86.711 Lumbar radiculopathy, right M54.16 Confusion R41.0 Constipation K59.00 (2) Chest pain Chest pain type: unspecified Qualified Code(s): R07.9 - Chest pain, unspecified
[2023-09-17 10:37] LABS: INR 3.6 (0.9-1.1)
[2023-09-17] MEDS: SENNA 8.6 MG TAB PO SCH (10:40)
--- NOTE | 2023-09-17 16:31 | Discharge Summary ---
Date of Service date of admission - September 10, 2023 date of discharge - September 17, 2023 Admission HPI Per Admitting Provider This is a 77-year-old gentleman with past medical history significant for morbid obesity bariatric procedure 37 years ago, on July 31 patient went for diagnostic laparoscopy with lysis of adhesions in [facility], plan was to repair prior bariatric procedure, fortunately patient became hypotensive and procedure was aborted, he has multiple small incisions which are in process of healing, he reports some abdominal discomfort, he was discharged to his sister house in [place], suffered a mechanical fall and returned back to [facility], multiple CAT scans did not show any fractures, he was able to ambulate and was discharged home, patient returned home, unfortunately at home his cannot take care of him, he was brought to emergency room, he said that and daughter yelled at him, he denies any suicidal ideations to me, but some suicidal ideation recorded by ER physician, he reports right lower extremity wound, which is painful, have erythema surrounding wound, he denies fever or chills, reports generalized weakness, appears very frustrated tired and depressed, he reported some chest pain earlier, he thinks it is due to anxiety, patient has a history of PE and DVT, he is on Coumadin, INR is 1.5. He reports some painful urination, denies diarrhea or constipation, reports being very hungry. Principal Diagnosis 1. right leg cellulitis 2. right thompson ulceration 3. left thompson ulceration (minor) 4. acute metabolic encephalopathy - likely multiple etiologies - MRI brain negative for stroke 5. depression / anxiety 6. chest pain 7. diabetes - hemoglobin a1c 6.4% 8. sleep apnea 9. chronic coumadin for prior history of DVT & PEs 10. constipation 11. right leg pain due to lumbar disc disease with resulting radiculopathy Discharge Exam gen - obese, sitting at side of bed, NAD neck - no JVD mouth - MMM heart - RRR, s1, s2, no murmur lungs - CTA b/l abd - soft NT ND BS+ ext - trace edema b/l shins/ankles/feet; pulses b/l feet 2+ skin - dressings removed from the right thompson ulcer; ulcer is very clean; no malodor; no purulent drainage; cellulitis resolved. Venous stasis changes/hyperpigmentation b/l shins; tiny ulceration - clean/dry - just above the left ankle psych - a/o x 3 Discharge Data Allergies Allergy/AdvReac Type Severity Reaction Status Date / Time amoxicillin Allergy Intermediate rash Verified 09/21/23 14:29 Penicillins Allergy Intermediate rash Verified 09/21/23 14:29 Consultations Psychiatry PT, OT Wound Care Ordered Studies Head CT 09/10/23 14:[address] DOSE: 625.8 mGy.cm HISTORY: Altered mental status. TECHNIQUE: Multiaxial CT images of the head were performed without the use of intravenous contrast. Automated exposure control was utilized for this study. A dose lowering technique was utilized adhering to the principles of ALARA. Comparison: None. Findings: The paranasal sinuses and mastoid air cells are clear. The calvarium and skull base are intact. There is no mass, hematoma, midline shift, acute infarct. White matter hypodensity is nonspecific but suggestive of microvascular ischemic change. The ventricles and sulci demonstrate mild age-related involutional changes. Impression: No acute intracranial abnormality. ACT 112: Negative or not required by law. Electronically signed by: Masoud Navarro M.D. 09/10/2023 3:34 PM Chest X-Ray 09/10/23 14:07 XR chest 1V portable HISTORY: weakness COMPARISON: Chest CTA 09/08/2023. FINDINGS: No pneumothorax. No pleural effusions. No focal lung consolidations to suggest a pneumonia. No evidence for pulmonary edema. The heart remains moderately enlarged. There are low lung volumes. No acute fractures. IMPRESSION: Stable cardiomegaly. Otherwise, no acute process within the chest. ACT 112: Negative or not required by law. Electronically signed by: Masoud Navarro M.D. 09/10/2023 3:56 PM Chest CTA 09/10/23 17:23 CT angio chest w con CLINICAL HISTORY: chest pain TECHNIQUE: Multidetector row helical CT of the chest was performed with angiographic protocol. Coronal and sagittal reformations were obtained. Coronal and sagittal MIPS were obtained from the axial data set and were submitted for review. Automated dose lowering techniques and/or adjustment according to patient size were utilized for this exam. CT DOSE: 931.35 mGy.cm Comparison: Comparison is made to CT chest 09/08/2023 FINDINGS: Lungs and pleura: Normal. Heart and pericardium: Heart size is normal. No pericardial effusion. Vessels: No evidence of pulmonary embolism. Mediastinum and indu: Unremarkable. Chest wall and lower neck: Unremarkable. Abdomen: Hepatic steatosis is noted. Postsurgical changes of cholecystectomy and gastric bypass surgery are seen. Bones: Degenerative changes in the thoracic spine. IMPRESSION: 1. No acute abnormality and in particular no evidence of pulmonary embolus. 2. Hepatic steatosis. ACT 112: Negative or not required by law. Electronically signed by: Cornelius Silva M.D. 09/10/2023 10:31 PM Venous Doppler Study 09/14/23 20:03 Exam(s): US VENOUS RIGHT LOWER EXTREMITY EXAM: US Duplex Right Lower Extremity Veins CLINICAL HISTORY: Reason for exam: worsening pain/swelling/redness. TECHNIQUE: Real-time duplex ultrasound scan of the right lower extremity veins integrating B-mode two-dimensional vascular structure, Doppler spectral analysis, color flow Doppler imaging and compression. COMPARISON: No relevant prior studies available. FINDINGS: Deep veins: Unremarkable. No DVT in the visualized common femoral, femoral, proximal deep femoral or popliteal veins. The veins demonstrate normal color flow, are normally compressible, with normal phasic flow and/or augmentation response. Superficial veins: Unremarkable. No thrombus in the visualized great saphenous vein. Soft tissues: Nix's cyst measuring 2.9 x 6.1 x 1.1 cm. Subcutaneous edema in the calf. IMPRESSION: 1. No evidence of acute DVT. 2. Nix's cyst. Subcutaneous edema in the calf. Cannot exclude a leaking Nix's cyst. Electronically signed by: Gladys Petersen M.D. 09/14/23 22:58 PM Brain MRI 09/15/23 18:06 MR brain wo con CLINICAL HISTORY: intermittent confusion TECHNIQUE: Multiplanar and multisequence MR images of the brain were obtained without intravenous contrast. Comparison: Comparison is made to CT head 09/10/2023 FINDINGS: No abnormal restricted diffusion is identified. Foci of T2 and FLAIR hyperintensity are noted in the paraventricular areas consistent with chronic small vessel ischemic disease. Ex vacuo ventriculomegaly and sulcal enlargement is noted compatible with diffuse volume loss. No mass is seen. There is no mass effect or midline shift. There is no evidence of acute intraparenchymal hemorrhage. No extra axial fluid collections are seen. The corpus callosum, pituitary gland, and cerebellar tonsils appear grossly unremarkable. Flow voids of the major intracranial arterial vessels are identified. The imaged portions of the paranasal sinuses, mastoid air cells, and orbits are unremarkable. Hyperostosis frontalis is seen. IMPRESSION: No acute abnormality and in particular no evidence of acute infarct. ACT 112: Negative or not required by law. Electronically signed by: Cornelius Silva M.D. 09/15/2023 8:58 PM Chest/Abdomen X-ray 09/16/23 13:59 CHEST AND ABDOMEN 2 VIEWS HISTORY: lower abdominal discomforts; constipation? COMPARISON: Chest 09/10/2023. Abdomen and pelvis CT 09/12/2022. FINDINGS: No pneumothorax. No pleural effusions. The lungs are clear. The cardiac silhouette remains mildly enlarged. No acute fractures identified. Surgical clips and suture material again noted within the upper abdomen. No pneumoperitoneum. No pneumatosis. No renal or ureteral calculi. No dilated loops of bowel to suggest an obstruction. Moderate to large amount of well-formed stool seen throughout the colon and rectum. IMPRESSION: 1. No acute process within the chest. 2. Stable cardiomegaly. 3. Moderate to large amount of well-formed stool seen throughout the colon and rectum. ACT 112: Negative or not required by law. Electronically signed by: Masoud Navarro M.D. 09/16/2023 4:15 PM Hospital Course (1) Cellulitis of right leg: Improved/resolving with IV Cefepime and Daptomycin. He received about 7 days of each while hospitalized. At discharge he will transition over to keflex and doxycycline for 3 days each to complete 10 days in total of Rx. During the stay he received wound care assistance for the ulceration on the right thompson. Recommendations for his wounds were as follows - -->right leg/thompson wound - * perform dressing changes daily and as needed * cleanse the wound with sterile saline * then apply a layer of Aquacel Ag * then cover with ABD dressing * then finish with Kerlix dressing -->left leg ulceration (just above the left ankle) - cover with optifoam dressing, change every other day and as needed An appointment was made with the [facility] to follow the RLE ulceration in 09/2023. (2) Chest pain: Presented with atypical chest pain, probably due to anxiety as serial troponins were negative x 3 EKG without ischemic changes, CTA chest negative for PE or pneumonia Tele was normal the entire stay He did not have recurrent chest pain after admission (3) Depression: Severe depression/anxiety related to numerous issues including marital problems, health troubles, etc Seen by psychiatry - inpatient hospitalization not needed Continue home duloxetine 60 mg daily and psychiatry recommended adding Abilify 5 mg daily and Vistaril prn Recommend therapy as an outpatient Information provided to him by psychiatric nurse liaison for outpatient therapy (4) Hypokalemia: replaced resolved Low-dose potassium supplementation was advised upon discharge (5) Hypertension: Continue HCTZ Continue lisinopril Low-dose potassium supplementation was advised upon discharge (6) Diabetes mellitus type 2 in obese: Patient denies having diabetes, but he has had hemoglobin A1c's of 6.4-6.5% within the last year HgbA1C in 04/2023 6.4% repeat a1c 6.4% this admission Cont efforts at dietary control (7) Physical debility: He has had 2 falls recently-1 at home and 1 actually at the rehab he was at Received PT/OT during the stay both of which recommended inpatient rehab Referral to [facility] was made but his insurance denied authorization for such His insurance agreed to allow SNF level of rehab but patient ultimately decided he wished to return home He will have home PT/OT and home nursing upon transition home (8) GERD (gastroesophageal reflux disease): Continue PPI (9) Morbid obesity: History of gastric bypass surgery, and recent attempt to redo bypass surgery failed due to hypotension (at [facility]) Follow-up with bariatric surgeon as scheduled as an outpatient BMI 42.5 (10) Sleep apnea: Continue CPAP at 9 cm H2O (11) Hx pulmonary embolism: 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 INR was 3.6 on day of discharge He was asked to hold his coumadin on 09/16 and 09/17 He will then have an INR check on 09/19/23, which will dictate future coumadin dosing (12) Lumbar radiculopathy, right: Patient had several episodes of right distal leg pain radiating into the foot most c/w S1 radiculopathy; possibly L5 radiculopathy last pain management note mentions a repeat epidural injection at L5-S1 he is already on gabapentin 300mg TID + cymbalta 60mg daily could consider increasing gabapentin once acute infectious issues are resolved would get him back to pain management for consideration of another epidural pain shot a Nix's cyst was seen on doppler of his RLE but I do not believe this was causing the pain he reported The nix's cyst is 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 his RLE radicular pain did improve prior to discharge and he was able to walk relatively comfortably (13) Confusion: checked MRI brain - no subacute or chronic CVA however, considerable atrophy may have been having low-grade encephalopathy in setting of his RLE cellulitis and recurrent hospitalizations (14) Constipation: likely cause of intermittent lower abd pain (had such for weeks prior to admission) abd x-rays showed mod-severe constipation advise senna/miralax for treatment/maintenance Home Health Attestation I certify that this patient is under my care and that I, or a physicians wet process miller head assistant working with me, had a face to-face encounter that meets the home health [id number] encounter requirements with this patient. The encounter with the patient was in whole, or in part, for the following medical condition, which is the primary reason for home health care (list medical condition): Cellulitis RLE I certify that, based on my findings, the following services are [facility]: My clinical findings support the need for the above services because: Caregiver Instruct Med Mgmt, Safety, Disease Process, Signs to Report Home Safety Assessment Hydration / Nutrition OT Assess ADL Status and Restore Function w ADLs PT Assessment for Endurance / Balance / Strength PT Eval for Safety and Mobility PT Eval for Safety, Gait Training, Assistive Devices PT Gait and Balance Training, Strengthening and Safety Safety Skilled Nsg Assessment Skilled Nsg Assessment Surgical Incision / Wound Skilled Nsg Instruction New Medications Skilled Nsg Assess Pt Illness, Disease and Sx Monitoring Skilled Nsg to Assess, Perform and Teach Wound Care S/S to Report to Provider Teach on Disease Management and Interventions Vital Signs Further, I certify that my clinical findings support that this patient is homebound (i.e. absences from home require considerable and taxing effort and are for medical reasons or anglican services or infrequently or of short duration when for other reasons) because: Supportive Aid - Walker Transportation Assistance/Unable to Leave Home Unassisted Certification for Home Health Services: Based on the above findings, I certify that this patient is confined to the home and needs intermittent intermediate care, physical therapy and/or speech therapy or continues to need occupational therapy. The patient is under my care, and I have initiated the establishment of the plan of care. This patient will be followed by a physician who will periodically review the plan of care. Total Time Total Time Spent Total Time Spent (In Minutes): 50 Discharge Plan Discharge Items Patient Disposition: Home - Home Health Services Reason For Visit: DEPRESSION Discharge Diagnosis: 1. right leg cellulitis 2. right thompson ulceration/wound 3. left thompson ulceration (small/minor) 4. confusion/delirium - likely multiple etiologies - MRI brain negative for stroke 5. depression / anxiety 6. chest pain - no evidence of heart attack or blood clots of the lungs 7. diabetes - hemoglobin a1c 6.4% 8. sleep apnea 9. chronic coumadin for prior history of DVT & PEs 10. constipation 11. right leg pain due to lumbar disc disease with resulting radiculopathy (nerve pain) Activity: As commented below Activity Comment: gradually increase activities over the next week Non-emergency contact: Primary Care Provider Call non-emergency contact if: you have any medication questions, your symptoms worsen, you have a fever, your wound has increased redness, your wound has increased drainage and your wound pain has increased Follow-up/Referrals: Ml Casas DO, FACEP [Physician] - 10/04/23 8:00 am (wound care center ) Henry Prieto DO [Primary Care Provider] - 09/23/23 11:30 am (5-7 days ) Diet: Carb Consistent or DM2 and Heart Healthy Addtl Attending Provider Instructions: Mr Elias, Berny were hospitalized due to multiple issues including right leg cellulitis, right leg wound, depression, chest pain, mild confusion, etc. Your right leg cellulitis resolved with IV antibiotics. The leg wound is clean and our wound care team made recommendations for the care of the ulceration. Psychiatry saw you for the depression and recommended the addition of a medicine called "abilify" (aripiprazole) to improve your spirits. We did not find any evidence of heart attack or blood clots of the lungs (PEs). We checked you for these problems because of the chest pain you had had. Due to your concerns of confusion we did an MRI of the brain. This showed mild atrophy but NO old or new stroke, no tumor, no blood, etc. Finally, x-rays of your abdomen showed severe constipation. This may be the reason your lower abdomen hurts at times. Recommendations: 1. antibiotics for your right leg infection - * cephalexin 500mg three times daily x 3 additional days; start the AM of 09/18/23 * doxycycline 100mg twice daily x 3 days; start the PM of 09/17/23 * some people occasionally have reflux/heartburn/stomach upset from doxycycline * rarely people can get a rash if you go out in the sun while taking doxycycline; thus, for the next 3-4 days, cover up & use sunscreen liberally 2. wound care for your legs - * right leg/thompson wound - * perform dressing changes daily and as needed * cleanse the wound with sterile saline * then apply a layer of Aquacel Ag * then cover with "ABD" dressing * then finish with Kerlix dressing * secure with tape * left leg ulceration (just above the left ankle) - cover with optifoam dressing, change every other day and as needed * keep the dressings clean and dry during showers 3. for depression take abilify (aripiprazole) 5mg once daily each morning; start 09/18/23 4. take a potassium supplement once daily starting 09/18/23 5. for constipation take 1 or both of the following [id number] medicines - * 1 serving of miralax daily * senna 2 tablets daily 6. please reach out to the counselor/psychologist to schedule an appointment for counseling 7. if you continue to have mild confusion/memory difficulty/"fuzziness" - please talk with Dr Prieto about a referral to have memory testing 8. Your INR today is 3.6. It is higher than the goal range because of the recent IV antibiotics (antibiotics & coumadin interact with one another). Please do the following - * HOLD your coumadin TODAY and TOMORROW, 09/18/23 * have an INR check on 09/19/23; I have placed a lab order for you; you can have this drawn at any [facility] lab * once we see the INR on Tuesday we can give you additional guidance regarding your coumadin dosing 9. follow-up with your back specialist due to the nerve pain you are having in your right leg. Follow-up - see separate section Return to [facility] if - * you have fevers over 100 degrees * you have worsening redness, drainage, foul smell, pain, or any other concerns regarding your right leg wound * you have thoughts of hurting yourself or anyone else * you develop severe diarrhea * your confusion worsens * any other concerns It was our pleasure to care for you! -Dr Greenfield Pending Studies at Discharge: No Stand-Alone Forms: My [facility], Smoking Cessation Medications and DC Order Prescriptions: New potassium chloride 20 mEq Tablet,Er Particles/Crystals 20 meq PO DAILY Qty: 30 1RF Continued Cosentyx Pen (2 Pens) 150 mg/mL pen injector 300 mg subcut .COMPLEX Qty: 6 3RF Rx Instructions: 300 mg every 4 weeks (on Tue') for maintenance as directed. gabapentin 300 mg capsule 300 mg PO TID Qty: 90 5RF duloxetine 60 mg capsule,delayed release(DR/EC) 60 mg PO QAM Qty: 90 3RF hydrochlorothiazide 25 mg tablet 25 mg PO QAM Qty: 90 3RF pantoprazole 40 mg tablet,delayed release (DR/EC) 40 mg PO BID Qty: 90 3RF (DME) Shower Chair Misc See Rx Instructions .Route Qty: 1 0RF Rx Instructions: As directed (DME) Ultra-Light Rollator Misc See Rx Instructions .Route Qty: 1 0RF Rx Instructions: As directed cholecalciferol (vitamin D3) 50 mcg (2,000 unit) capsule 50 mcg PO DAILY cyanocobalamin (vitamin B-12) 1,000 mcg tablet 1,000 mcg PO DAILY loratadine 10 mg tablet 10 mg PO DAILY PRN (Reason: Allergy Symptoms) ferrous sulfate 325 mg (65 mg iron) Tablet 325 mg PO QAM multivitamin with minerals Capsule 1 cap PO DAILY ondansetron HCl 4 mg tablet 4 mg PO DIRECTED PRN (Reason: Nausea) Changed acetaminophen 325 mg Tablet 650 mg PO Q6H PRN (Reason: pain) Qty: 1 0RF Held warfarin 5 mg tablet See Rx Instructions PO UD Qty: 120 0RF Hold Instructions: hold until next INR is checked on 09/19/23. Rx Instructions: 5 mg every Sundays, Wednesdays and 7.5 mg x 5 days or per [facility] orally use as directed Sheet says 9mg, external medication history says 5mg? No Action polyethylene glycol 3350 [Miralax] 17 gram powder in packet 17 g PO DAILY PRN Rx Instructions: purchase [id number]-lncybrb sennosides [Senokot] 8.6 mg tablet 17.2 mg PO QAM PRN Rx Instructions: purchase uhxf-uwm-ntivcty lisinopril 5 mg tablet 5 mg PO DAILY Qty: 30 2RF aripiprazole [Abilify] 5 mg tablet 5 mg PO QAM Qty: 30 1RF Rx Instructions: for depression nystatin 100,000 unit/gram cream 1 applic TOPICAL BID PRN Discharge Orders: Discharge Order (Routine); Ordered 09/17/23 Ordered By: Aries Ball/Other Patient Handouts: A1C, Understanding Lumbar Radiculopathy Admission Data Admit Date/Time: 09/10/23 20:09 Attending Provider: Aries Greenfield Admit Provider: Victorina Alvarado Primary Care Provider: Henry Prieto Other Providers: Martha Scales; Alise Michelle; Usman Salomon; Keanu Hooker Jr; Sydney Mendoza; Nelly Turner; Andrew Carranza; [facility] Other Interventions: Discharge Summary Assessment (RN) Last Done: 09/17/23 16:38 Coding Level of Care Code 96705 INP/OBS DISCH >30 MIN Diagnoses Cellulitis of right leg L03.115 Chest pain R07.9 Chest pain type: unspecified Depression F32.9 Hypokalemia E87.6 Hypertension I10 Diabetes mellitus type 2 in obese E11.69; E66.9 Physical debility R53.81 GERD (gastroesophageal reflux disease) K21.9 Morbid obesity E66.01 Sleep apnea G47.30 Hx pulmonary embolism Z86.711 Lumbar radiculopathy, right M54.16 Confusion R41.0 Constipation K59.00
== END 2023-09-17 18:35 | disposition home health service (06) | DRG 313 ==
LOC: ED 12:53 → SUATTDRO 20:09 → EDINP 20:09 → 2N 09-11 16:01

== ENCOUNTER 2023-11-18 21:07 | Inpatient (IN) ==
[2023-11-18 21:44] LABS: Basophils # (auto) 0.04 K/uL (0.00-0.20); Basophils % (auto) 0.5 %; Eosinophils # (auto) 0.18 K/uL (0.00-0.50); Eosinophils % (auto) 2.1 %; Hematocrit (blood only) 44.7 % (42.0-52.0); Hemoglobin 14.1 g/dl (14.0-18.0); Immature Granulocytes # (auto) 0.02 K/uL (0.01-0.20); Immature Granulocytes % (auto) 0.2 %; Lymphocytes # (auto) 1.34 K/uL (1.20-3.40); Lymphocytes % (auto) 15.9 %; Mean Corpuscular Hemoglobin 27.4 pg (25.0-34.0); Mean Corpuscular Hgb Conc 31.5 g/dL (32.0-36.0); Mean Corpuscular Volume 86.8 fL (80.0-100.0); Mean Platelet Volume 10.4 fL (9.4-12.4); Monocytes % (auto) 8.3 %; Neutrophils # (auto) 6.14 K/uL (1.40-6.50); Platelet Count 188 K/uL (130-400); RDW Coefficient of Variation 14.2 % (11.5-14.5); RDW Standard Deviation 45.4 fL (36.4-46.3); Red Blood Count 5.15 M/uL (4.70-6.10); White Blood Count 8.42 K/ul (4.8-10.8)
[2023-11-18] MEDS: SODIUM CHLORIDE 0.9% 1,000 ML IV ONE (21:45)
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
[2023-11-18 22:08] LABS: Albumin Globulin Ratio 1.2 (0.9-2); Albumin Level 3.7 gm/dl (3.4-5.0); Bilirubin,Total 0.3 mg/dl (0.2-1.0); Calcium 9.3 mg/dl (8.6-10.3); Creatinine Clr Calc Pharmacy 80.8 ml/min; Est GFR (African American) 72.3 ml/min; Est GFR (Non-African American) 62.4 ml/min; Magnesium 1.8 mg/dl (1.7-2.4); Potassium 3.5 mmol/L (3.5-5.1); Total Protein 6.7 gm/dl (6.0-8.3)
[2023-11-18 22:14] LABS: Troponin I High Sensitivity 7.8 pg/ml (0-20)
[2023-11-18] MEDS: OPTIRAY 320 125ml IV ONE (22:31)
[2023-11-18 22:48] LABS: INR 2.2 (0.9-1.1); Partial Thromboplastin Ratio 1.2; Partial Thromboplastin Time 33 Seconds (21-31); Prothrombin Time 22.3 Seconds (9.0-12.0)
[2023-11-18 22:56] LABS: Adenovirus PCR Not Detected (NotDetected); Bordetella parapertussis PCR Not Detected (NotDetected); Bordetella pertussis PCR Not Detected (NotDetected); Chlamydia pneumoniae PCR Not Detected (NotDetected); Coronavirus 229E PCR Not Detected (NotDetected); Coronavirus CoV-2 (COVID19)PCR Not Detected (NotDetected); Coronavirus HKU1 PCR Not Detected (NotDetected); Coronavirus NL63 PCR Not Detected (NotDetected); Coronavirus OC43PCR Not Detected (NotDetected); Human Metapneumovirus PCR Not Detected (NotDetected); Influenza A PCR Not Detected (NotDetected); Influenza B PCR Not Detected (NotDetected); Mycoplasma pneumoniae PCR Not Detected (NotDetected); Parainfluenza Virus 1 PCR Not Detected (NotDetected); Parainfluenza Virus 2 PCR Not Detected (NotDetected); Parainfluenza Virus 3 PCR Not Detected (NotDetected); Parainfluenza Virus 4 PCR Not Detected (NotDetected); Respiratory Syncytial VirusPCR Not Detected (NotDetected); Rhinovirus/Enterovirus PCR Not Detected (NotDetected)
[2023-11-18 23:20] LABS: Appearance Urine Clear (Clear); Bilirubin Urine Negative (Negative); Blood Urine Negative (Negative); Color Urine Yellow; Glucose Urine UA Negative (Negative); Ketones Urine Negative (Negative); Leukocyte Esterase Urine Negative (Negative); Nitrite Urine Negative (Negative); Protein Urine Negative (Negative); Specific Gravity Urine 1.026 (1.000-1.030); Urobilinogen Urine Negative (Negative)
--- NOTE | 2023-11-19 00:59 | CT Scan Report ---
Exam(s): CT ABDOMEN + PELVIS With Contrast IV Amt: 119 cc opti 320 EXAM: CT Abdomen and Pelvis With Intravenous Contrast CLINICAL HISTORY: Reason for exam: mid abd pain. TECHNIQUE: Axial computed tomography images of the abdomen and pelvis with intravenous contrast. CTDI is 28.14 mGy and DLP is 1640.54 mGy-cm. Automated exposure control was utilized for the study. A dose lowering technique was utilized adhering to the principles of ALARA. CONTRAST: Patient received 119 cc opti 320 of IV contrast COMPARISON: 09/12/22 FINDINGS: Lung bases: Unremarkable. No mass. No consolidation. ABDOMEN: Liver: Unremarkable. No mass. Gallbladder and bile ducts: Cholecystectomy. No ductal dilation. Pancreas: Unremarkable. No mass. No ductal dilation. Spleen: Unremarkable. No splenomegaly. Adrenals: Unremarkable. No mass. Kidneys and ureters: Stable appearance of the right kidney with small chronic perinephric collection, as well as mild hydronephrosis without hydroureter suggesting chronic low-grade UPJ obstruction. Symmetric renal enhancement. No hydronephrosis of the left kidney. Stomach and bowel: The stomach has been surgically divided. No bowel obstruction. No mucosal thickening. PELVIS: Appendix: Normal appendix. Bladder: Unremarkable. No mass. Reproductive: Unremarkable as visualized. ABDOMEN and PELVIS: Intraperitoneal space: Unremarkable. No free air, significant free fluid, or fluid collection. Bones/joints: Degenerative changes in the spine. No acute fracture or dislocation. Soft tissues: Small fat-containing umbilical hernia. Nodular subcutaneous foci in the anterior abdominal wall, 1 of which appears fluid-filled and measures 2.8 cm (series 2, image 83), suggesting injection granulomata. Vasculature: Minimal atherosclerosis. No aortic aneurysm. Lymph nodes: Unremarkable. No enlarged lymph nodes. IMPRESSION: No acute findings in the abdomen or pelvis. Electronically signed by: Gladys Petersen M.D. 11/19/23 00:58 AM
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
[2023-11-19] MEDS ORDERED: POLYETHYLENE (MIRALAX) 17 GM PACK PO PRN (03:34)
[2023-11-19] MEDS: ACETAMINOPHEN 325 MG TAB PO PRN (04:19)
[2023-11-19] MEDS: LACTATED RINGER'S 1,000 ML IV SCH (04:19)
--- NOTE | 2023-11-19 05:43 | Billing Data ---
Date of Service November 19, 2023 Coding Level of Care Code 17591 INT INP/OBS CARE
--- NOTE | 2023-11-19 07:24 | XRay Report ---
XR chest 1V portable CLINICAL HISTORY: Weakness. COMPARISON STUDY: Chest CT September 10, 2023. Chest radiograph September 16, 2023. FINDINGS: Lung volumes are normal. Lungs are clear. There is no pneumothorax or pleural effusion. Car diac size is stable. Mediastinal contours are normal. There is no evidence for pulmonary edema. IMPRESSION: No acute cardiopulmonary findings. No change in appearance of the chest. ACT 112: Negative or not required by law. Electronically signed by: Félix Delatorre M.D. 11/19/2023 7:23 AM
[2023-11-19] MEDS: NYSTATIN CR 15 GM TUBE EXT PRN (08:38)
[2023-11-19] MEDS: DULoxetine HCL 60 MG CAP PO SCH (08:39)
[2023-11-19] MEDS: ARIPiprazole 5 MG TAB PO SCH (08:39)
[2023-11-19] MEDS: CYANOCOBALAMIN (B-12) 500 MCG TABLET PO SCH (08:39)
[2023-11-19] MEDS: CHOLECALCIFEROL 25 MCG (1000 UNITS) TAB PO SCH (08:39)
[2023-11-19] MEDS: POTASSIUM CHLORIDE CRTAB 20 MEQ TABCR PO SCH (08:40)
[2023-11-19] MEDS: PANTOprazole 40 MG TAB PO SCH (08:40)
[2023-11-19] MEDS: CEROVITE ADV FORMULA TAB PO SCH (08:40)
[2023-11-19] MEDS: LORATADINE 10 MG TAB PO PRN (08:40)
[2023-11-19] MEDS: GABAPENTIN 300 MG CAP PO SCH (08:40)
--- NOTE | 2023-11-19 09:00 | Electrocardiogram Report ---
Test Reason : Blood Pressure : */* mmHG Vent. Rate : 119 BPM Atrial Rate : 119 BPM P-R Int : 190 ms QRS Dur : 84 ms QT Int : 304 ms P-R-T Axes : 30 -2 40 degrees QTcB Int : 427 ms Sinus tachycardia with Premature atrial complexes Otherwise normal ECG When compared with ECG of 10-Sep-2023 14:25, Vent. rate has increased by 63 bpm Confirmed by Norman Hall ([id number]) on 11/19/2023 9:00:06 AM Referred By: Confirmed By: Norman Hall
--- NOTE | 2023-11-19 10:10 | Hospitalist Progress Note ---
Date of Service November 19, 2023 Assessment & Plan (1) Weakness: Plan: - Likely viral gastroenteritis based on symptoms - neurological exam nonfocal - Hypotensive/tachycardic-> improved s/p 1L IVF in ED - No signs of acute infection on CT A&P/CXR, no leukocytosis, no urinary symptoms, no cellulitis, Resp Biofire negative - Blood culture pending - No indication for antibiotics at present - Continue fluids-> LR @100ml/hr x 2L (2) Hypotension: Plan: - in the setting of dehydration, improved with fluids - LR @100ml/hr x 2L (3) Hypertension: Plan: - hold HCTZ, lisinopril in the setting of hypotension (4) BPH loc w urin obs/LUTS: Plan: - hold alfuzosin in the setting of hypotension (5) Major depressive disorder, recurrent episode, moderate with anxious distress: Plan: - continue aripiprazole, duloxetine (6) Diabetes mellitus type 2 in obese: Plan: - last hemoglobin a1c= 6.4, diet controlled - no indication for SSI (7) GERD (gastroesophageal reflux disease): Plan: - continue PPI (8) Hx of deep venous thrombosis: Plan: - continue warfarin - INR= 2.2 Plan Diet: Regular Code: Full VTE Prophylaxis: Warfarin Admission and Anticipated Discharge Date Admission Date: November 19, 2023 Results & Data Results & Data Vital Signs (Past 12 Hours) Vital Signs Temp Pulse Pulse Resp BP BP BP 11/19/23 07:29 36.5 C 63 18 112/69 11/19/23 07:00 66 11/19/23 04:19 65 11/19/23 04:15 11/19/23 03:43 36.4 C L 74 18 113/71 11/19/23 03:00 74 16 114/71 11/19/23 02:30 75 16 111/67 11/19/23 02:00 72 18 118/54 L 11/19/23 01:30 86 19 114/57 L 11/19/23 01:19 92 H 11/19/23 01:00 91 H 20 101/64 11/19/23 00:00 92 H 16 122/66 11/18/23 23:30 97 H 20 126/68 11/18/23 23:00 112/64 11/18/23 23:00 91 H 18 112/64 11/18/23 22:40 88 20 119/69 Pulse Ox O2 Del Method 11/19/23 07:29 95 Room Air 11/19/23 07:00 11/19/23 04:19 11/19/23 04:15 Room Air 11/19/23 03:43 95 Room Air 11/19/23 03:00 91 Room Air 11/19/23 02:30 95 Room Air 11/19/23 02:00 93 Room Air 11/19/23 01:30 94 Room Air 11/19/23 01:19 11/19/23 01:00 94 Room Air 11/19/23 00:00 94 Room Air 11/18/23 23:30 96 Room Air 11/18/23 23:00 11/18/23 23:00 94 Room Air 11/18/23 22:40 97 Room Air PG Care Time/CCT Total # of Minutes Spent Total Time Spent with Patient: Total time spent is greater than 50% in coordination of care (as documented) at patient's floor/unit and/or counseling patient: Coding Diagnoses Weakness R53.1 Hypotension I95.9 Hypotension type: unspecified hypotension type Hypertension I10 BPH loc w urin obs/LUTS N40.1 Major depressive disorder, recurrent episode, moderate with anxious distress F33.1 Diabetes mellitus type 2 in obese E11.69; E66.9 GERD (gastroesophageal reflux disease) K21.9 Hx of deep venous thrombosis Z86.718 (2) Hypotension Hypotension type: unspecified hypotension type Qualified Code(s): I95.9 - Hypotension, unspecified
--- NOTE | 2023-11-19 10:10 | Communication Note ---
Date of Service: November 19, 2023 (1) Weakness: - Likely viral gastroenteritis based on symptoms - No signs of acute infection on CT A&P/CXR, no leukocytosis, no urinary symptoms, no cellulitis, Resp Biofire negative - Blood culture pending - No indication for antibiotics at present - Continue fluids-> LR @100ml/hr x 2L -CBC/BMP 11/18 stable -zofran 30 minutes prior to meals -also endorses significant constipation at home, started on Miralax BID (2) Hypotension: - in the setting of dehydration, improved with fluids - LR @100ml/hr x 2L -holding at home BP meds (HCTZ, Lisinopril) -Alfuzosin also on hold Chronic conditions: Mental health - continue aripiprazole, duloxetine Diabetes mellitus type 2 in obese: - last hemoglobin a1c= 6.4, diet controlled - no indication for SSI GERD: - continue PPI Hx of deep venous thrombosis- continue warfarin - INR= 2.2 AM CBC, BMP
[2023-11-19] MEDS: POLYETHYLENE (MIRALAX) 17 GM PACK PO SCH (10:40)
[2023-11-19] MEDS: ONDANSETRON 2 MG OD TAB PO SCH (12:10)
[2023-11-19] MEDS: WARFARIN SOD 5 MG TAB PO SCH (16:28)
[2023-11-20 07:24] LABS: Basophils # (auto) 0.03 K/uL (0.00-0.20); Basophils % (auto) 0.5 %; Eosinophils # (auto) 0.33 K/uL (0.00-0.50); Eosinophils % (auto) 5.6 %; Immature Granulocytes # (auto) 0.03 K/uL (0.01-0.20); Immature Granulocytes % (auto) 0.5 %; Lymphocytes # (auto) 1.25 K/uL (1.20-3.40); Mean Corpuscular Hemoglobin 27.6 pg (25.0-34.0); Mean Corpuscular Volume 89.2 fL (80.0-100.0); Mean Platelet Volume 10.2 fL (9.4-12.4); Monocytes # (auto) 0.77 K/uL (0.11-0.59); Neutrophils # (auto) 3.53 K/uL (1.40-6.50); Neutrophils % (auto) 59.4 %; Platelet Count 171 K/uL (130-400); RDW Coefficient of Variation 14.2 % (11.5-14.5); RDW Standard Deviation 46.2 fL (36.4-46.3); Red Blood Count 4.71 M/uL (4.70-6.10); White Blood Count 5.94 K/ul (4.8-10.8)
[2023-11-20 07:34] LABS: Albumin Globulin Ratio 1.3 (0.9-2); Albumin Level 3.5 gm/dl (3.4-5.0); BUN Creatinine Ratio 19.5 (10-20); Bilirubin,Total 0.3 mg/dl (0.2-1.0); Calcium 8.8 mg/dl (8.6-10.3); Creatinine Clr Calc Pharmacy 107.4 ml/min; Est GFR (African American) 96.5 ml/min; Est GFR (Non-African American) 83.2 ml/min; Globulin 2.7 gm/dl (2.5-4.0); Magnesium 1.9 mg/dl (1.7-2.4); Potassium 4.2 mmol/L (3.5-5.1); Total Protein 6.2 gm/dl (6.0-8.3)
[2023-11-20 07:38] LABS: INR 1.9 (0.9-1.1); Prothrombin Time 19.2 Seconds (9.0-12.0)
--- NOTE | 2023-11-20 09:57 | Hospitalist Progress Note ---
Date of Service November 20, 2023 Assessment & Plan (1) Weakness: Plan: Patient presented to the ED on 11/18 with complaints of weakness, nausea, and abdominal cramping. - Likely viral gastroenteritis based on symptoms - No signs of acute infection on CT A&P/CXR, no leukocytosis, no urinary symptoms, no cellulitis, Resp Biofire negative - Blood culture pending - No indication for antibiotics at present - s/p LR @100ml/hr x 2L -CBC/BMP 11/19 stable -zofran 30 minutes prior to meals -also endorses significant constipation at home, started on Miralax BID -PT/OT consulted, appreciate recommendations. AM CBC, BMP (2) Hypotension: Plan: - in the setting of dehydration, improved with fluids - s/p LR @100ml/hr x 2L -holding at home BP meds (HCTZ, Lisinopril) -Resumed Flomax 11/19 -hypotension resolved with fluids Plan Mental health - continue aripiprazole, duloxetine Diabetes mellitus type 2 in obese: - last hemoglobin a1c= 6.4, diet controlled - no indication for SSI GERD: - continue PPI Hx of deep venous thrombosis- continue warfarin - INR= 2.2 Diet: Carb Consistent Code status: Full DVT prophylaxis: Warfarin Disposition: continued inpatient stay awaiting PT/OT consults Admission and Anticipated Discharge Date Admission Date: November 19, 2023 Subjective Patient seen and examined this morning. Patient still complaining of weakness and nausea. patient reports he has not had a BM since his hospital stay. Reports he does not have good social support at home so he would like to make sure he is strong at discharge. Looking forward to his PT evaluation as well. Physical Exam 2 Constitutional: WD/WN, vitals as above Respiratory: normal respiratory effort, lungs clear to auscultation Cardiovascular: RRR, no murmur, no edema Skin: no rashes, warm and dry Psychiatric: A+Ox3, euthymic affect Results & Data Results & Data Vital Signs (Past 12 Hours) Vital Signs Temp Pulse Pulse Resp BP Pulse Ox O2 Del Method 11/20/23 07:31 36.6 C 55 L 18 132/76 98 Room Air 11/20/23 07:00 57 L 11/20/23 04:01 36.4 C L 54 L 20 106/63 94 Room Air 11/19/23 23:45 36.7 C 65 20 122/69 96 Room Air Laboratory Results 11/20/23 06:35 11/20/23 06:35 PG Care Time/CCT Total # of Minutes Spent Total Time Spent with Patient: Total time spent is greater than 50% in coordination of care (as documented) at patient's floor/unit and/or counseling patient: Coding Level of Care Code 46867 SUB INP/OBS CARE 2/35MIN Diagnoses Weakness R53.1 Hypotension I95.9 Hypotension type: unspecified hypotension type (2) Hypotension Hypotension type: unspecified hypotension type Qualified Code(s): I95.9 - Hypotension, unspecified
[2023-11-20] MEDS: TAMSULOSIN HCL 0.4 MG CAP PO SCH (10:22)
[2023-11-20] MEDS: DICLOFENAC SOD 1% GEL 100 GM TUBE EXT PRN (11:35)
[2023-11-21 07:15] LABS: Hematocrit (blood only) 40.4 % (42.0-52.0); Mean Corpuscular Hgb Conc 32.2 g/dL (32.0-36.0); Mean Corpuscular Volume 86.9 fL (80.0-100.0); Mean Platelet Volume 10.1 fL (9.4-12.4); Platelet Count 179 K/uL (130-400); Red Blood Count 4.65 M/uL (4.70-6.10)
[2023-11-21 07:39] LABS: BUN Creatinine Ratio 14.5 (10-20); Calcium 8.8 mg/dl (8.6-10.3); Creatinine Clr Calc Pharmacy 79.8 ml/min; Est GFR (African American) 69.3 ml/min; Est GFR (Non-African American) 59.8 ml/min; Potassium 4.3 mmol/L (3.5-5.1)
[2023-11-21 07:47] LABS: INR 1.8 (0.9-1.1); Prothrombin Time 18.8 Seconds (9.0-12.0)
[2023-11-21] MEDS: lisinopril 5 MG TAB PO SCH (09:27)
[2023-11-21] MEDS ORDERED: ONDANSETRON 2 MG OD TAB PO PRN (15:10)
--- NOTE | 2023-11-21 15:13 | Hospitalist Progress Note ---
Date of Service November 21, 2023 Assessment & Plan (1) Weakness: Plan: Patient presented to the ED on 11/18 with complaints of weakness, nausea, and abdominal cramping. - Likely viral gastroenteritis based on symptoms - No signs of acute infection on CT A&P/CXR, no leukocytosis, no urinary symptoms, no cellulitis, Resp Biofire negative - no indications for abx - Blood culture: negative at 48 hours - Received IVF x 2L - will change zofran to prn (from scheduled) to decrease constipation, continue miralax BID -PT/OT consulted - no indication for rehab, pt agreeable to try outpatient PT again (2) Hypotension: Plan: - in the setting of dehydration, improved with fluids - 2L - lisinopril resumed 11/20, Resumed flomax 11/19 HCTZ still on hold -holding at home HCTZ (3) Hx of deep venous thrombosis: Plan: On coumadin, follows [facility] clinic goal 2-3 INR 1.8 today, will give additional 5mg to base 5mg dose for total 10mg today otherwise continue home regiment AM INR Plan Chornic stable conditions: * Mental health - continue aripiprazole, duloxetine. mundo consulted * Diabetes mellitus type 2 in obese: - last hemoglobin a1c= 6.4, diet controlled * GERD: - continue PPI DVT prophylaxis: Warfarin Disposition: continued inpatient stay, hopeful for discharge tomorrow Admission and Anticipated Discharge Date Admission Date: November 20, 2023 Anticipated date of discharge: 11/22/23 Supervising Physician Co-Signing Physician Notes PA Supervision Note: I did not personally see or examine the patient today, but I verified all roberto points of NALDO Avilez's assessment and plan with the following exceptions/additions: None Subjective Patient seen siting on the side of the bed. Tearful as he realizes his insurance is not going to pay for rehab. Has tried HH PT and [facility] and did not like either of those. Struggling because he would prefer handicap room - and just got off the waiting list for that, but waiver went to his in the divorce and now is back on the waitlist. lives with two roommates. Does feel like his abdominal pain has improved - tolerating diet. Very tearful and frustrated with situation Review of Systems Review of Systems: All systems reviewed & are unremarkable except as noted in Subjective Physical Exam Physical Exam: General: tearful and frustrated VS as above Resp: normal respiratory effort, lungs clear to auscultation CV: RRR, no murmur, Abd: normal bowel sounds, non tender, no hepatosplenomegaly Extremities: Moves all extremities, minimal edema, no signs of active infection Neuro: A&O x3, Skin: intact, no lesions noted Results & Data Results & Data Vital Signs (Past 12 Hours) Vital Signs Temp Pulse Resp BP BP Pulse Ox O2 Del Method 11/21/23 11:30 36.3 C L 76 18 156/85 H 97 Room Air 11/21/23 08:00 Room Air 11/21/23 07:53 36.4 C L 58 L 18 114/66 97 Room Air Laboratory Results CBC and chemistry and INR reviewed PG Care Time/CCT Total # of Minutes Spent Total Time Spent with Patient: Total time spent is greater than 50% in coordination of care (as documented) at patient's floor/unit and/or counseling patient: Coding Level of Care Code 00140 SUB INP/OBS CARE 3/50MIN Diagnoses Weakness R53.1 Hypotension I95.9 Hypotension type: unspecified hypotension type Hx of deep venous thrombosis Z86.718 (2) Hypotension Hypotension type: unspecified hypotension type Qualified Code(s): I95.9 - Hypotension, unspecified
[2023-11-21] MEDS: WARFARIN SOD 5 MG TAB PO ONE (16:40)
[2023-11-21 23:12] VITALS: PULSE 60
[2023-11-22 06:00] LABS: Hematocrit (blood only) 39.7 % (42.0-52.0); Hemoglobin 12.6 g/dl (14.0-18.0); Mean Corpuscular Hemoglobin 27.8 pg (25.0-34.0); Mean Corpuscular Hgb Conc 31.7 g/dL (32.0-36.0); Mean Corpuscular Volume 87.4 fL (80.0-100.0); Platelet Count 173 K/uL (130-400); RDW Standard Deviation 44.8 fL (36.4-46.3); Red Blood Count 4.54 M/uL (4.70-6.10); White Blood Count 6.33 K/ul (4.8-10.8)
[2023-11-22 06:13] LABS: BUN Creatinine Ratio 17.6 (10-20); Calcium 8.6 mg/dl (8.6-10.3); Creatinine Clr Calc Pharmacy 86.5 ml/min; Est GFR (African American) 76.3 ml/min; Est GFR (Non-African American) 65.9 ml/min
[2023-11-22 06:21] LABS: INR 1.8 (0.9-1.1); Prothrombin Time 18.1 Seconds (9.0-12.0)
[2023-11-22 07:24] VITALS: TEMP 97.3
--- NOTE | 2023-11-22 11:16 | Discharge Summary ---
Discharge Summary Date of Service November 22, 2023 Principal Dx & Hospital Course #1 = Principal Diagnosis (1) Weakness: Patient presented to the ED on 11/18 with complaints of weakness, nausea, and abdominal cramping. - Likely viral gastroenteritis based on symptoms - No signs of acute infection on CT A&P/CXR, no leukocytosis, no urinary symptoms, no cellulitis, Resp Biofire negative - no indications for abx - Blood culture: negative at 48 hours - Received IVF x 2L - Changed zofran to prn (from scheduled) to decrease constipation and did not require - Received miralax BID with + BM, recommend once daily at discharge -PT/OT consulted - no indication for rehab, pt agreeable to try outpatient PT again, physical script given (2) Hypotension: - in the setting of dehydration, improved with fluids - 2L - lisinopril resumed 11/20, Resumed flomax 11/19 Resume HCTZ at discharge (3) Hx of deep venous thrombosis: On coumadin, follows [facility] clinic goal 2-3 INR 1.8 11/20 - given additonal 5mg 11/21 - remains 1.8 - no change to home regiment, follow up with [facility] clinic Plan Chornic stable conditions: * Mental health - continue aripiprazole, duloxetine. mundo consulted - resources provided * Diabetes mellitus type 2 in obese: - last hemoglobin a1c= 6.4, diet controlled * GERD: - continue PPI DVT prophylaxis: Warfarin Disposition: discharge to home today, with outpatient PT Notes For Next Care Provider INR subtherapeutic during stay - given additional 5mg on 11/20. Needs AC clinic follow up, schedule for significant mental health concerns impacting care - mindset much improved day of discharge, will be staying with daughter for a few days, referral placed to psychiatrist. No medication changes Medication Changes From Visit recommend daily miralax Admission HPI Per Admitting Provider 78 year old male with a past medical history of obesity s/p bariatric surgery 37 years ago, lumbar radiculopathy, hx of DVT on retirement AC, Chronic venous stasis disease, JULIETTE, GERD, Psoriasis, Arthritis, Depression, T2DM, HTN presenting with concern for weakness. Symptoms started yesterday. Weakness, abdominal cramping, nausea. Similar episodes in the past which he relates to complications from bariatric surgery. Denies emesis, fever/chills. Last BM 8/9- denies constipation, diarrhea, blood in stool. Decreased appetite over the past couple of days. General weakness is what prompted him to come in today with concern. ED Course Significant for: CXR/CT A&P wnl. Hypotension/tachycardic improved with 1L IVF. CBC, CMP, lactate, lipase, procal wnl. Discharge Exam General: much improved affect today, pleasant and appropiate VS as above Resp: normal respiratory effort, lungs clear to auscultation CV: RRR, no murmur, Abd: normal bowel sounds, non tender, no hepatosplenomegaly Extremities: Moves all extremities, minimal edema, no signs of active infection Neuro: A&O x3, Skin: intact, no lesions noted Updated Medication List Medication Instructions Recorded Confirmed Type secukinumab 150 mg/mL subcutaneous 300 mg (2 mL) subcut .COMPLEX #6 mL 03/22/22 11/18/23 Rx pen injector (Cosentyx Pen 300 mg/2 Pens () Shower Chair #1 ea 10/04/22 11/18/23 Rx walker (Ultra-Light Rollator misc) #1 ea 10/04/22 11/18/23 Rx duloxetine 60 mg capsule,delayed 60 mg PO QAM #90 caps 08/30/23 11/18/23 Rx release hydrochlorothiazide 25 mg tablet 25 mg PO QAM #90 tabs 08/30/23 11/18/23 Rx pantoprazole 40 mg tablet,delayed 40 mg PO BID #90 tabs 08/30/23 11/18/23 Rx release ondansetron HCl 4 mg tablet 4 mg PO DIRECTED PRN Nausea 09/08/23 11/18/23 Hi story cholecalciferol (vitamin D3) 50 50 mcg PO DAILY 09/09/23 11/18/23 History mcg (2,000 unit) capsule cyanocobalamin (vitamin B-12) 1,000 mcg PO DAILY 09/09/23 11/18/23 History 1,000 mcg tablet loratadine 10 mg tablet 10 mg PO DAILY PRN Allergy Symptoms 09/09/23 11/18/23 History multivitamin with minerals 1 cap PO DAILY 09/10/23 11/18/23 History acetaminophen 325 mg tablet 650 mg (2 x 325 mg) PO Q6H PRN 09/17/23 11/18/23 Rx pain #1 tab nystatin 100,000 unit/gram topical 1 applic topical BID PRN Rash 09/21/23 11/18/23 History cream polyethylene glycol 3350 17 gram 17 g PO DAILY PRN Constipation 09/21/23 11/18/23 History oral powder packet (Miralax) aripiprazole 5 mg tablet (Abilify) 5 mg PO QAM #30 tabs 10/14/23 11/18/23 Rx potassium chloride 20 mEq 20 meq PO DAILY #90 tabs 10/18/23 11/18/23 Rx tablet,extended release(part/cryst) warfarin 5 mg tablet See Rx Instructions PO UD 10/25/23 11/18/23 History lisinopril 5 mg tablet 5 mg PO DAILY #30 tabs 11/11/23 11/18/23 Rx alfuzosin 10 mg tablet,extended 10 mg PO DAILY #30 tabs 11/15/23 11/18/23 Rx release 24 hr gabapentin 300 mg capsule 300 mg PO TID #90 caps 11/15/23 11/18/23 Rx Hospital Stay Data Consultations 11/19/23 01:03 ED Decision to Admit Stat 11/21/23 08:24 Consult Behavioral Health Liaison Routine Diagnostic Imagining Performed Abdomen/Pelvis CT 11/18/23 21:40 Exam(s): CT ABDOMEN + PELVIS With Contrast IV Amt: 119 cc opti 320 EXAM: CT Abdomen and Pelvis With Intravenous Contrast CLINICAL HISTORY: Reason for exam: mid abd pain. TECHNIQUE: Axial computed tomography images of the abdomen and pelvis with intravenous contrast. CTDI is 28.14 mGy and DLP is 1640.54 mGy-cm. Automated exposure control was utilized for the study. A dose lowering technique was utilized adhering to the principles of ALARA. CONTRAST: Patient received 119 cc opti 320 of IV contrast COMPARISON: 09/12/22 FINDINGS: Lung bases: Unremarkable. No mass. No consolidation. ABDOMEN: Liver: Unremarkable. No mass. Gallbladder and bile ducts: Cholecystectomy. No ductal dilation. Pancreas: Unremarkable. No mass. No ductal dilation. Spleen: Unremarkable. No splenomegaly. Adrenals: Unremarkable. No mass. Kidneys and ureters: Stable appearance of the right kidney with small chronic perinephric collection, as well as mild hydronephrosis without hydroureter suggesting chronic low-grade UPJ obstruction. Symmetric renal enhancement. No hydronephrosis of the left kidney. Stomach and bowel: The stomach has been surgically divided. No bowel obstruction. No mucosal thickening. PELVIS: Appendix: Normal appendix. Bladder: Unremarkable. No mass. Reproductive: Unremarkable as visualized. ABDOMEN and PELVIS: Intraperitoneal space: Unremarkable. No free air, significant free fluid, or fluid collection. Bones/joints: Degenerative changes in the spine. No acute fracture or dislocation. Soft tissues: Small fat-containing umbilical hernia. Nodular subcutaneous foci in the anterior abdominal wall, 1 of which appears fluid-filled and measures 2.8 cm (series 2, image 83), suggesting injection granulomata. Vasculature: Minimal atherosclerosis. No aortic aneurysm. Lymph nodes: Unremarkable. No enlarged lymph nodes. IMPRESSION: No acute findings in the abdomen or pelvis. Electronically signed by: Gladys Petersen M.D. 11/19/23 00:58 AM Chest X-Ray 11/18/23 21:42 XR chest 1V portable CLINICAL HISTORY: Weakness. COMPARISON STUDY: Chest CT September 10, 2023. Chest radiograph September 16, 2023. FINDINGS: Lung volumes are normal. Lungs are clear. There is no pneumothorax or pleural effusion. Cardiac size is stable. Mediastinal contours are normal. There is no evidence for pulmonary edema. IMPRESSION: No acute cardiopulmonary findings. No change in appearance of the chest. ACT 112: Negative or not required by law. Electronically signed by: Félix Delatorre M.D. 11/19/2023 7:23 AM Pending Results Patient Have Any Pending Studies at Discharge: No Discharge Instructions Given to Patient (Per Discharging Provider) Mr. Elias, Berny were hospitalized after nausea and abdominal pain, this was thought to be viral gastroenteritis that has improved during your stay. You were receiving zofran that is an nausea medication, these can make you constipated - so add medication to your regimen if taking. You had issues with constipation while you were here, this improved with miralax twice a day while you were here. You should continue Miralax or Senna once a day. These both can be purchased over the counter. If you do not have a bowel movement add the second agent or take a double dose of Miralax. One of your blood pressure medications (hydrochlorothiazide) is a diuretic (water pill) that if you are not drinking enough, can make you dehydrated. Make sure you are monitoring your liquid intake and consuming enough water. Dehydration can make you weak. We tried Voltaren (diclofenac gel) on your neck. If this helped your pain, you can purchase this over the counter. A physical prescription was provided for you to go to outpatient physical therapy. This can be done at the location of your choice. You were seen by the behavioral health Liaison during your stay, they provided resources for you to find a psychiatrist, I hope this works out with you. If you still have issues, I would recommend asking your insurance for help. You will need to follow up with the anticoagulation clinic - your appointment is 11/23 at 10:30. Please continue the warfarin dose as prescribed until then. It was my pleasure taking care of you. Clara Avilez PA-C Total Time Total Time Spent Total Time Spent (In Minutes): Time spend day of discharge 40 minutes including direct patient care, medication reconciliation, documentation, review of labs and images, and coordination of care. Supervising Physician Co-Signing Physician Notes PA Supervision Note: I personally saw and examined the patient. I verified all roberto points and agree with NALDO Avilez with the following exceptions and/or additions: S-patient reports feeling much better, he is tolerating p.o. and moving his bowels regularly. He feels like he is getting more on track with his plan of getting stronger with physical therapy and seeing psychologist. O- Vitals reviewed Gen: AAOx3, NAD, obese HEENT: Anicteric sclerae, EOMI CV: RRR no mgr nl S1S2 Pulm: CTAB no wcr A/W-63-joxy-old male here with generalized weakness and abdominal cramping, possible gastroenteritis. Now much improved, stable for discharge home Coding Level of Care Code 40028 INP/OBS DISCH >30 MIN Diagnoses Weakness R53.1 Hypotension I95.9 Hypotension type: unspecified hypotension type Hx of deep venous thrombosis Z86.718
[2023-11-22 11:23] VITALS: RESP 16; O2SAT 100
[2023-11-22 14:16] VITALS: BP 156/85
[2023-11-22] MEDS ORDERED: WARFARIN SOD 10 MG TAB PO SCH (16:00)
== END 2023-11-22 15:10 | disposition home or self-care (01) | DRG 392 ==
LOC: ED 21:07 → 2N 21:07 → SUATTDRO 11-19 01:26 → 2N 11-19 03:17 → SUATTDRO 11-20 09:51

== ENCOUNTER 2023-12-12 18:40 | Inpatient (IN) ==
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
[2023-12-12 19:10] LABS: Basophils # (auto) 0.05 K/uL (0.00-0.20); Basophils % (auto) 0.3 %; Eosinophils # (auto) 0.01 K/uL (0.00-0.50); Eosinophils % (auto) 0.1 %; Hematocrit (blood only) 46.5 % (42.0-52.0); Hemoglobin 14.7 g/dl (14.0-18.0); Immature Granulocytes % (auto) 0.6 %; Lymphocytes # (auto) 0.92 K/uL (1.20-3.40); Lymphocytes % (auto) 5.4 %; Mean Corpuscular Hemoglobin 27.4 pg (25.0-34.0); Mean Corpuscular Hgb Conc 31.6 g/dL (32.0-36.0); Mean Corpuscular Volume 86.6 fL (80.0-100.0); Mean Platelet Volume 9.9 fL (9.4-12.4); Monocytes # (auto) 1.68 K/uL (0.11-0.59); Monocytes % (auto) 9.8 %; Neutrophils # (auto) 14.37 K/uL (1.40-6.50); Neutrophils % (auto) 83.8 %; Platelet Count 159 K/uL (130-400); RDW Coefficient of Variation 14.3 % (11.5-14.5); RDW Standard Deviation 45.8 fL (36.4-46.3); Red Blood Count 5.37 M/uL (4.70-6.10); White Blood Count 17.13 K/ul (4.8-10.8)
[2023-12-12 19:26] LABS: Albumin Globulin Ratio 1.2 (0.9-2); Albumin Level 3.7 gm/dl (3.4-5.0); BUN Creatinine Ratio 11.8 (10-20); Bilirubin,Total 0.7 mg/dl (0.2-1.0); Creatinine Clr Calc Pharmacy 69.1 ml/min; Est GFR (African American) 57.8 ml/min; Est GFR (Non-African American) 49.8 ml/min; Globulin 3.1 gm/dl (2.5-4.0); Potassium 3.8 mmol/L (3.5-5.1); Total Protein 6.8 gm/dl (6.0-8.3)
[2023-12-12 19:32] LABS: Troponin I High Sensitivity 14.2 pg/ml (0-20)
[2023-12-12] MEDS: MoRPHine SULFATE 4 MG/ML 1 ML CARP\\VIAL IV STA (19:33)
[2023-12-12] MEDS: SODIUM CHLORIDE 0.9% 500 ML IV STA (19:33)
[2023-12-12] MEDS: ONDANSETRON INJ 2 MG/ML 2 ML VIAL IV STA (19:33)
[2023-12-12 19:40] LABS: INR 2.4 (0.9-1.1); Partial Thromboplastin Ratio 1.4; Partial Thromboplastin Time 38 Seconds (21-31); Prothrombin Time 24.5 Seconds (9.0-12.0)
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
--- NOTE | 2023-12-12 19:54 | CT Scan Report ---
Exam(s): CT C SPINE EXAM: CT Cervical Spine Without Intravenous Contrast CLINICAL HISTORY: Reason for exam: fall. TECHNIQUE: Axial computed tomography images of the cervical spine without intravenous contrast. CTDI is 26.96 mGy and DLP is 603.62 mGy-cm. Automated exposure control was utilized for the study. A dose lowering technique was utilized adhering to the principles of ALARA. COMPARISON: No relevant prior studies available. FINDINGS: Vertebrae: Osteopenia. No acute fracture or subluxation. Discs/spinal canal/neural foramina: Multilevel disc, facet, and uncovertebral joint degeneration. Mild degrees of central spinal canal narrowing, greatest at C4-C5. Varying degrees of bilateral foraminal narrowing, advanced bilaterally at C3-C4 and on the right at C5-C6 and C6- C7. Soft tissues: Unremarkable. IMPRESSION: No acute findings in the cervical spine. Electronically signed by: Gladys Petersen M.D. 12/12/23 19:53 PM
--- NOTE | 2023-12-12 19:55 | CT Scan Report ---
Exam(s): CT HEAD Without Contrast EXAM: CT Head Without Intravenous Contrast CLINICAL HISTORY: Reason for exam: fall. TECHNIQUE: Axial computed tomography images of the head/brain without intravenous contrast. CTDI is 36.18 mGy and DLP is 702.46 mGy-cm. Automated exposure control was utilized for the study. A dose lowering technique was utilized adhering to the principles of ALARA. COMPARISON: 09/10/23 FINDINGS: Brain: Age-related parenchymal volume loss. Periventricular and deep cerebral white matter hypoattenuation suggesting chronic small vessel ischemic change. Figueroa-white matter differentiation maintained. No hemorrhage, mass effect, parenchymal edema, or midline shift. Ventricles: Unremarkable. No hydrocephalus. Bones/joints: Unremarkable. No acute fracture. Soft tissues: Unremarkable. Vasculature: Intracranial atherosclerosis. Sinuses: Unremarkable as visualized. Mastoid air cells: Unremarkable as visualized. No mastoid effusion. Orbits: Bilateral lens replacements. IMPRESSION: No acute intracranial process. Electronically signed by: Gladys Petersen M.D. 12/12/23 19:55 PM
--- NOTE | 2023-12-12 19:57 | CT Scan Report ---
Exam(s): CT RIGHT HIP Without Contrast EXAM: CT Right Lower Extremity Without Intravenous Contrast, Hip CLINICAL HISTORY: Reason for exam: fakll. TECHNIQUE: Axial computed tomography images of the right hip without intravenous contrast. CTDI is 35.5 mGy and DLP is 747.47 mGy-cm. Automated exposure control was utilized for the study. A dose lowering technique was utilized adhering to the principles of ALARA. COMPARISON: Right hip radiographs 12/12/23 FINDINGS: Bones/joints: No acute fracture. No dislocation. Soft tissues: Unremarkable. IMPRESSION: No acute osseous findings. Electronically signed by: Gladys Petersen M.D. 12/12/23 19:56 PM
[2023-12-12] MEDS ORDERED: LACTATED RINGER'S 1,000 ML IV ONE (20:27)
[2023-12-12] MEDS: SODIUM CHLORIDE 0.9% 500 ML IV ONE (21:38)
--- NOTE | 2023-12-12 22:25 | CT Scan Report ---
Exam(s): CT RIGHT KNEE Without Contrast EXAM: CT Right Lower Extremity Without Intravenous Contrast, Knee CLINICAL HISTORY: Reason for exam: fall. TECHNIQUE: Axial computed tomography images of the right knee without intravenous contrast. CTDI is 35 mGy and DLP is 601 mGy-cm. Automated exposure control was utilized for the study. A dose lowering technique was utilized adhering to the principles of ALARA. COMPARISON: Right knee radiographs 12/12/23 FINDINGS: Bones/joints: Osteopenia. Tricompartment osteoarthritis. Small joint effusion. Patellar enthesopathy. No fracture. No dislocation. Soft tissues: Unremarkable. IMPRESSION: No acute osseous findings. Electronically signed by: Gladys Petersen M.D. 12/12/23 22:24 PM
[2023-12-12 22:36] LABS: Appearance Urine Turbid (Clear); Bacteria Urine Automated 4+ (None Seen); Bilirubin Urine Negative (Negative); Blood Urine 2+ (Negative); Cast Urine Automated >20 /lpf (0-2); Color Urine Dark Yellow; Epithelial Cell Urine Auto 0-2 /hpf (0-2); Glucose Urine UA Negative (Negative); Ketones Urine Trace (Negative); Leukocyte Esterase Urine 3+ (Negative); Nitrite Urine Negative (Negative); Protein Urine 3+ (Negative); RBC Urine Automated >20 /hpf (0-2); Urobilinogen Urine Negative (Negative); WBC Urine Automated >50 /hpf (0-5); pH Urine >= 9.0 (4.5-7.5)
[2023-12-12] MEDS ORDERED: MELATONIN 3 MG TAB PO PRN (23:46)
[2023-12-13] MEDS: SODIUM CHLORIDE 0.9% 1,000 ML IV SCH (00:33)
--- NOTE | 2023-12-13 03:38 | Billing Data ---
Date of Service December 12, 2023 Coding Level of Care Code 05400 INT INP/OBS CARE
[2023-12-13] MEDS: cefTRIAXone SODIUM 2,000 MG/50 ML BAG IV SCH (03:56)
[2023-12-13] MEDS: ACETAMINOPHEN 325 MG TAB PO PRN (04:01)
[2023-12-13] MEDS: MoRPHine SULFATE 2 MG/ML CARP IV PRN (06:06)
--- NOTE | 2023-12-13 06:46 | XRay Report ---
XR knee RT 1 or 2V routine, XR tibia fibula RT 2V HISTORY: 78 years-old Male R knee pain . The right knee and lower leg status post fall COMPARISON: CT right knee of same day TECHNIQUE: 2 views of the right knee with 2 views of the right tibia and fibula FINDINGS: KNEE: Tricompartmental osteoarthritis is moderate within the lateral compartment and at least mild to moderate within the medial and patellofemoral compartments. Small joint effusion. No acute fracture or dislocation identified. TIBIA/FIBULA: No acute fracture or dislocation identified. IMPRESSION: No acute fracture or dislocation. ACT 112: Negative or not required by law. The above report was generated using voice recognition software. It may contain grammatical, syntax o r spelling errors. Electronically signed by: Steven Thomas M.D. 12/13/2023 6:44 AM
--- NOTE | 2023-12-13 06:49 | XRay Report ---
XR hip RT 2V w pelvis HISTORY: 78 years-old Male fall acute pelvic trauma COMPARISON: CT abdomen and pelvis 11/18/2023 TECHNIQUE: AP view of the pelvis with 2 views of the hips FINDINGS: Mild osteoarthritis of the hips. Study is limited secondary to patient body habitus. No acute fractur e or dislocation identified. IMPRESSION: No acute fracture or dislocation identified. ACT 112: Negative or not required by law. The above report was generated using voice recognition software. It may contain grammatical, syntax o r spelling errors. Electronically signed by: Steven Thomas M.D. 12/13/2023 6:47 AM
--- NOTE | 2023-12-13 07:05 | XRay Report ---
PORTABLE SEMIERECT AP CHEST RADIOGRAPH CLINICAL HISTORY: Chest pain, nonspecific. COMPARISON STUDY: Chest CT September 10, 2023. Chest radiograph November 18, 2023. FINDINGS: Lung volumes are normal. Lungs are clear. There is no pneumothorax or pleural effusion. Car diac size is stable. Mediastinal contours are normal. There is no evidence for pulmonary edema. IMPRESSION: No acute cardiopulmonary findings. ACT 112: Negative or not required by law. Electronically signed by: Félix Delatorre M.D. 12/13/2023 7:03 AM
--- NOTE | 2023-12-13 07:09 | XRay Report ---
XR femur RT 2V routine CLINICAL HISTORY: Fall. COMPARISON: Right knee radiographs January 27, 2023. CT of the abdomen and pelvis November 18, 2023. FINDINGS: There are no fractures within the right femur. No osseous lesions are present. There are a re mild degenerative changes within the right hip and moderate degenerative changes within the right knee. There is a moderate size right knee joint effusion. IMPRESSION: No fractures within the right femur. ACT 112: Negative or not required by law. Electronically signed by: Félix Delatorre M.D. 12/13/2023 7:07 AM
[2023-12-13 07:46] LABS: Basophils # (auto) 0.03 K/uL (0.00-0.20); Basophils % (auto) 0.2 %; Eosinophils # (auto) 0.01 K/uL (0.00-0.50); Eosinophils % (auto) 0.1 %; Hemoglobin 13.1 g/dl (14.0-18.0); Immature Granulocytes # (auto) 0.08 K/uL (0.01-0.20); Immature Granulocytes % (auto) 0.5 %; Lymphocytes % (auto) 5.3 %; Mean Corpuscular Hemoglobin 27.5 pg (25.0-34.0); Mean Corpuscular Hgb Conc 31.2 g/dL (32.0-36.0); Mean Corpuscular Volume 88.2 fL (80.0-100.0); Mean Platelet Volume 9.8 fL (9.4-12.4); Monocytes # (auto) 1.46 K/uL (0.11-0.59); Monocytes % (auto) 8.6 %; Neutrophils % (auto) 85.3 %; Platelet Count 149 K/uL (130-400); RDW Coefficient of Variation 14.7 % (11.5-14.5); RDW Standard Deviation 47.8 fL (36.4-46.3); Red Blood Count 4.76 M/uL (4.70-6.10); White Blood Count 16.88 K/ul (4.8-10.8)
[2023-12-13 08:06] LABS: Albumin Globulin Ratio 1.1 (0.9-2); Albumin Level 3.3 gm/dl (3.4-5.0); BUN Creatinine Ratio 13.7 (10-20); Bilirubin,Total 0.6 mg/dl (0.2-1.0); Calcium 8.1 mg/dl (8.6-10.3); Creatinine Clr Calc Pharmacy 57.3 ml/min; Est GFR (African American) 47.1 ml/min; Est GFR (Non-African American) 40.6 ml/min; Globulin 2.9 gm/dl (2.5-4.0); Potassium 3.9 mmol/L (3.5-5.1); Total Protein 6.2 gm/dl (6.0-8.3)
[2023-12-13 08:10] LABS: INR 2.1 (0.9-1.1); Prothrombin Time 20.9 Seconds (9.0-12.0)
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
[2023-12-13] MEDS: ARIPiprazole 5 MG TAB PO SCH (12:17)
[2023-12-13] MEDS: DULoxetine HCL 60 MG CAP PO SCH (12:17)
[2023-12-13] MEDS: POTASSIUM CHLORIDE CRTAB 20 MEQ TABCR PO SCH (12:17)
[2023-12-13] MEDS: PANTOprazole 40 MG TAB PO SCH (12:17)
--- NOTE | 2023-12-13 12:17 | Hospitalist Progress Note ---
Date of Service December 13, 2023 Assessment & Plan (1) Fall: Plan: Patient presented to the ER on 12/11 following a fall at home while ambulating from bathroom to bed. Patient reports he was on the ground for approximately 3 hours prior to seeking help. He also notes he struck his head on the fall. He is on Coumadin -Head CT and Cervical spine CT negative -Hip and knee CT negative -Hip, pelvis, knees, femur, tibia, and fibula X-rays all negative -CBC reviewed 12/12: leukocytosis of 16.88 (downtrending) -BMP reviewed 12/12: creatinine 1.61 (1.3 on 12/11) -CK: 61 -Orthopedics consult reviewed 12/12 -No surgery planned -PT/OT -consider pain management for back pain -too soon for additional knee injections -follow up outpatient -morphine and tylenol prn for pain -PT consult reviewed 12/12: recommending rehab AM CBC, BMP (2) Contusion of hip, right: Plan: -As above, no acute fracture seen on hip x-ray or CT. (3) Unable to ambulate: Plan: -Patient is unable to put pressure on the right leg, Plan as above (4) UTI (urinary tract infection): Plan: -UA positive in the ED for UTI. -Will start on ceftriaxone. -Does have an allergy to penicillins, will monitor closely. -Urine culture prelim showing gram negative bacilli. Will await final result and sensitivities (5) Venous stasis ulcers of both lower extremities: Plan: -Ulcers well-healed on physical exam, was recently discharged from wound care. Plan Chronic conditions: HTN: home medication on hold given stable pressures. 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 intermediate use of 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: On Warfarin due to hx of PE and DVT's JULIETTE: CPAP at bedtime Depression: Abilify Venous stasis ulcers of b/l LE: ulcers well healed on physical exam. Recently discharged from wound care. Diet: Carb consistent Code status: Conditional code DVT ppx: Coumadin Dispo: waiting rehab placement Admission and Anticipated Discharge Date Admission Date: December 12, 2023 Subjective Patient seen and examined this morning. Patient reports to be in mild pain at time of encounter. He expresses how upset he was that he was on the floor for 3 hours as his roommates were not home when he fell. He expressed he does not want to go home until he goes to rehab. Denied chest pain or shortness of breath. Physical Exam 2 Constitutional: WD/WN, vitals as above Eyes: PERRL, conjunctivae normal, anicteric sclerae Respiratory: normal respiratory effort, lungs clear to auscultation Cardiovascular: RRR, no murmur, no edema Skin: no rashes, warm and dry Psychiatric: A+Ox3, euthymic affect Results & Data Results & Data Vital Signs (Past 12 Hours) Vital Signs Temp Pulse Resp BP Pulse Ox O2 Del Method 12/13/23 08:15 Room Air 12/13/23 07:58 37.2 C 76 16 105/62 93 Room Air Laboratory Results 12/13/23 07:22 12/13/23 07:22 Diagnostic Findings Cervical Spine CT 12/12/23 18:46 Exam(s): CT C SPINE EXAM: CT Cervical Spine Without Intravenous Contrast CLINICAL HISTORY: Reason for exam: fall. TECHNIQUE: Axial computed tomography images of the cervical spine without intravenous contrast. CTDI is 26.96 mGy and DLP is 603.62 mGy-cm. Automated exposure control was utilized for the study. A dose lowering technique was utilized adhering to the principles of ALARA. COMPARISON: No relevant prior studies available. FINDINGS: Vertebrae: Osteopenia. No acute fracture or subluxation. Discs/spinal canal/neural foramina: Multilevel disc, facet, and uncovertebral joint degeneration. Mild degrees of central spinal canal narrowing, greatest at C4-C5. Varying degrees of bilateral foraminal narrowing, advanced bilaterally at C3-C4 and on the right at C5-C6 and C6- C7. Soft tissues: Unremarkable. IMPRESSION: No acute findings in the cervical spine. Electronically signed by: Gladys Petersen M.D. 12/12/23 19:53 PM Chest X-Ray 12/12/23 18:46 PORTABLE SEMIERECT AP CHEST RADIOGRAPH CLINICAL HISTORY: Chest pain, nonspecific. COMPARISON STUDY: Chest CT September 10, 2023. Chest radiograph November 18, 2023. FINDINGS: Lung volumes are normal. Lungs are clear. There is no pneumothorax or pleural effusion. Cardiac size is stable. Mediastinal contours are normal. There is no evidence for pulmonary edema. IMPRESSION: No acute cardiopulmonary findings. ACT 112: Negative or not required by law. Electronically signed by: Félix Delatorre M.D. 12/13/2023 7:[address] 12/12/23 18:46 Exam(s): CT HEAD Without Contrast EXAM: CT Head Without Intravenous Contrast CLINICAL HISTORY: Reason for exam: fall. TECHNIQUE: Axial computed tomography images of the head/brain without intravenous contrast. CTDI is 36.18 mGy and DLP is 702.46 mGy-cm. Automated exposure control was utilized for the study. A dose lowering technique was utilized adhering to the principles of ALARA. COMPARISON: 09/10/23 FINDINGS: Brain: Age-related parenchymal volume loss. Periventricular and deep cerebral white matter hypoattenuation suggesting chronic small vessel ischemic change. Figueroa-white matter differentiation maintained. No hemorrhage, mass effect, parenchymal edema, or midline shift. Ventricles: Unremarkable. No hydrocephalus. Bones/joints: Unremarkable. No acute fracture. Soft tissues: Unremarkable. Vasculature: Intracranial atherosclerosis. Sinuses: Unremarkable as visualized. Mastoid air cells: Unremarkable as visualized. No mastoid effusion. Orbits: Bilateral lens replacements. IMPRESSION: No acute intracranial process. Electronically signed by: Gladys Petersen M.D. 12/12/23 19:55 PM Hip/Pelvis X-Ray 12/12/23 18:46 XR hip RT 2V w pelvis HISTORY: 78 years-old Male fall acute pelvic trauma COMPARISON: CT abdomen and pelvis 11/18/2023 TECHNIQUE: AP view of the pelvis with 2 views of the hips FINDINGS: Mild osteoarthritis of the hips. Study is limited secondary to patient body habitus. No acute fracture or dislocation identified. IMPRESSION: No acute fracture or dislocation identified. ACT 112: Negative or not required by law. The above report was generated using voice recognition software. It may contain grammatical, syntax or spelling errors. Electronically signed by: Steven Thomas M.D. 12/13/2023 6:[address] 12/12/23 19:17 Exam(s): CT RIGHT HIP Without Contrast EXAM: CT Right Lower Extremity Without Intravenous Contrast, Hip CLINICAL HISTORY: Reason for exam: fakll. TECHNIQUE: Axial computed tomography images of the right hip without intravenous contrast. CTDI is 35.5 mGy and DLP is 747.47 mGy-cm. Automated exposure control was utilized for the study. A dose lowering technique was utilized adhering to the principles of ALARA. COMPARISON: Right hip radiographs 12/12/23 FINDINGS: Bones/joints: No acute fracture. No dislocation. Soft tissues: Unremarkable. IMPRESSION: No acute osseous findings. Electronically signed by: Gladys Petersen M.D. 12/12/23 19:56 PM Knee X-Ray 12/12/23 20:22 XR knee RT 1 or 2V routine, XR tibia fibula RT 2V HISTORY: 78 years-old Male R knee pain . The right knee and lower leg status post fall COMPARISON: CT right knee of same day TECHNIQUE: 2 views of the right knee with 2 views of the right tibia and fibula FINDINGS: KNEE: Tricompartmental osteoarthritis is moderate within the lateral compartment and at least mild to moderate within the medial and patellofemoral compartments. Small joint effusion. No acute fracture or dislocation identified. TIBIA/FIBULA: No acute fracture or dislocation identified. IMPRESSION: No acute fracture or dislocation. ACT 112: Negative or not required by law. The above report was generated using voice recognition software. It may contain grammatical, syntax or spelling errors. Electronically signed by: Steven Thomas M.D. 12/13/2023 6:44 AM Femur X-Ray 12/12/23 20:26 XR femur RT 2V routine CLINICAL HISTORY: Fall. COMPARISON: Right knee radiographs January 27, 2023. CT of the abdomen and pelvis November 18, 2023. FINDINGS: There are no fractures within the right femur. No osseous lesions are present. There are are mild degenerative changes within the right hip and moderate degenerative changes within the right knee. There is a moderate size right knee joint effusion. IMPRESSION: No fractures within the right femur. ACT 112: Negative or not required by law. Electronically signed by: Félix Delatorre M.D. 12/13/2023 7:07 AM Tibia/Fibula X-Ray 12/12/23 20:26 XR knee RT 1 or 2V routine, XR tibia fibula RT 2V HISTORY: 78 years-old Male R knee pain . The right knee and lower leg status post fall COMPARISON: CT right knee of same day TECHNIQUE: 2 views of the right knee with 2 views of the right tibia and fibula FINDINGS: KNEE: Tricompartmental osteoarthritis is moderate within the lateral compartment and at least mild to moderate within the medial and patellofemoral compartments. Small joint effusion. No acute fracture or dislocation identified. TIBIA/FIBULA: No acute fracture or dislocation identified. IMPRESSION: No acute fracture or dislocation. ACT 112: Negative or not required by law. The above report was generated using voice recognition software. It may contain grammatical, syntax or spelling errors. Electronically signed by: Steven Thomas M.D. 12/13/2023 6:[address] 12/12/23 20:48 Exam(s): CT RIGHT KNEE Without Contrast EXAM: CT Right Lower Extremity Without Intravenous Contrast, Knee CLINICAL HISTORY: Reason for exam: fall. TECHNIQUE: Axial computed tomography images of the right knee without intravenous contrast. CTDI is 35 mGy and DLP is 601 mGy-cm. Automated exposure control was utilized for the study. A dose lowering technique was utilized adhering to the principles of ALARA. COMPARISON: Right knee radiographs 12/12/23 FINDINGS: Bones/joints: Osteopenia. Tricompartment osteoarthritis. Small joint effusion. Patellar enthesopathy. No fracture. No dislocation. Soft tissues: Unremarkable. IMPRESSION: No acute osseous findings. Electronically signed by: Gladys Petersen M.D. 12/12/23 22:24 PM PG Care Time/CCT Total # of Minutes Spent Total Time Spent with Patient: Total time spent is greater than 50% in coordination of care (as documented) at patient's floor/unit and/or counseling patient: Coding Level of Care Code 03047 SUB INP/OBS CARE 2/35MIN Diagnoses Fall W19.XXXA Encounter type: initial encounter Contusion of hip, right S70.01XA Encounter type: initial encounter Unable to ambulate R26.2 UTI (urinary tract infection) N39.0 Venous stasis ulcers of both lower extremities I83.019; I83.029; L97.919; L97.929 (1) Fall Encounter type: initial encounter Qualified Code(s): W19.XXXA - Unspecified fall, initial encounter (2) Contusion of hip, right Encounter type: initial encounter Qualified Code(s): S70.01XA - Contusion of right hip, initial encounter
[2023-12-13] MEDS: GABAPENTIN 300 MG CAP PO SCH (14:17)
[2023-12-13] MEDS: WARFARIN SOD 5 MG TAB PO SCH (16:50)
--- NOTE | 2023-12-13 17:58 | Electrocardiogram Report ---
Test Reason : Blood Pressure : */* mmHG Vent. Rate : 89 BPM Atrial Rate : 89 BPM P-R Int : 186 ms QRS Dur : 78 ms QT Int : 322 ms P-R-T Axes : 32 -10 52 degrees QTcB Int : 391 ms Sinus rhythm with marked sinus arrhythmia Low voltage QRS Abnormal ECG When compared with ECG of 18-Nov-2023 21:17, Premature atrial complexes are no longer Present Confirmed by Kory Samuel ([id number]) on 12/13/2023 5:58:07 PM Referred By: REFERRED SELF Confirmed By: Kory Samuel
[2023-12-13] MEDS: TAMSULOSIN HCL 0.4 MG CAP PO SCH (21:04)
[2023-12-14] MEDS: MoRPHine SULFATE 4 MG/ML 1 ML CARP\\VIAL IV PRN (07:50)
[2023-12-14 07:54] LABS: Basophils # (auto) 0.02 K/uL (0.00-0.20); Basophils % (auto) 0.2 %; Eosinophils # (auto) 0.17 K/uL (0.00-0.50); Eosinophils % (auto) 1.3 %; Hematocrit (blood only) 39.4 % (42.0-52.0); Hemoglobin 12.4 g/dl (14.0-18.0); Immature Granulocytes # (auto) 0.08 K/uL (0.01-0.20); Immature Granulocytes % (auto) 0.6 %; Lymphocytes # (auto) 0.79 K/uL (1.20-3.40); Lymphocytes % (auto) 6.2 %; Mean Corpuscular Hemoglobin 27.4 pg (25.0-34.0); Mean Corpuscular Hgb Conc 31.5 g/dL (32.0-36.0); Mean Platelet Volume 9.9 fL (9.4-12.4); Monocytes # (auto) 1.23 K/uL (0.11-0.59); Monocytes % (auto) 9.7 %; Neutrophils # (auto) 10.45 K/uL (1.40-6.50); Platelet Count 135 K/uL (130-400); RDW Coefficient of Variation 14.7 % (11.5-14.5); RDW Standard Deviation 47.3 fL (36.4-46.3); Red Blood Count 4.53 M/uL (4.70-6.10); White Blood Count 12.74 K/ul (4.8-10.8)
[2023-12-14 08:01] LABS: BUN Creatinine Ratio 17.8 (10-20); Calcium 7.8 mg/dl (8.6-10.3); Creatinine Clr Calc Pharmacy 68.4 ml/min; Est GFR (African American) 58.3 ml/min; Est GFR (Non-African American) 50.3 ml/min; Potassium 3.6 mmol/L (3.5-5.1)
[2023-12-14 08:19] LABS: INR 1.7 (0.9-1.1); Prothrombin Time 17.9 Seconds (9.0-12.0)
--- NOTE | 2023-12-14 12:05 | Hospitalist Progress Note ---
Date of Service December 14, 2023 Assessment & Plan (1) Fall: Plan: Patient presented to the ER on 12/11 following a fall at home while ambulating from bathroom to bed. Patient reports he was on the ground for approximately 3 hours prior to seeking help. He also notes he struck his head on the fall. He is on Coumadin -Head CT and Cervical spine CT negative -Hip and knee CT negative -Hip, pelvis, knees, femur, tibia, and fibula X-rays all negative -CBC reviewed 12/13: leukocytosis of 12.7 (downtrending) -BMP reviewed 12/13: creatinine 1.35 -CK 12/12: 61 -Orthopedics consult reviewed 12/12 -No surgery planned -PT/OT -consider pain management for back pain -too soon for additional knee injections -follow up outpatient -Tylenol and switched to PO pain medication with Oxycodone 5mg every 4 hours as needed for pain. -PT consult reviewed 12/12: recommending rehab AM CBC, BMP (2) Contusion of hip, right: Plan: -As above, no acute fracture seen on hip x-ray or CT. (3) Unable to ambulate: Plan: -Patient is unable to put pressure on the right leg, Plan as above (4) UTI (urinary tract infection): Plan: -UA positive in the ED for UTI. -Will start on ceftriaxone. -Does have an allergy to penicillins, will monitor closely. -Urine culture showing proteus mirabilis. Sensitives show Ceftriaxone is sensitive. Will continue course in the hospital and transition to PO antibiotics if needed on discharge. Plan Chronic conditions: HTN: home medication on hold given stable pressures. 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 Recently discharged from wound care. Diet: Carb consistent Code status: Conditional code DVT ppx: Coumadin Dispo: waiting rehab placement Admission and Anticipated Discharge Date Admission Date: December 12, 2023 Subjective Patient seen and examined this morning. Patient denies any complaints today. Reports no urinary symptoms and his pain has been controlled with pain medication. Physical Exam 2 Constitutional: WD/WN, vitals as above Eyes: PERRL, conjunctivae normal, anicteric sclerae Respiratory: normal respiratory effort, lungs clear to auscultation Cardiovascular: RRR, no murmur, no edema Skin: no rashes, warm and dry Psychiatric: A+Ox3, euthymic affect Results & Data Results & Data Vital Signs (Past 12 Hours) Vital Signs Temp Pulse Pulse Resp BP Pulse Ox O2 Del Method 12/14/23 07:44 37.0 C 62 64 16 100/60 94 Room Air Laboratory Results 12/14/23 07:13 12/14/23 07:13 PG Care Time/CCT Total # of Minutes Spent Total Time Spent with Patient: Total time spent is greater than 50% in coordination of care (as documented) at patient's floor/unit and/or counseling patient: Coding Level of Care Code 50910 SUB INP/OBS CARE 2/35MIN Diagnoses Fall W19.XXXA Encounter type: initial encounter Contusion of hip, right S70.01XA Encounter type: initial encounter Unable to ambulate R26.2 UTI (urinary tract infection) N39.0 (1) Fall Encounter type: initial encounter Qualified Code(s): W19.XXXA - Unspecified fall, initial encounter (2) Contusion of hip, right Encounter type: initial encounter Qualified Code(s): S70.01XA - Contusion of right hip, initial encounter
[2023-12-14] MEDS: ONDANSETRON INJ 2 MG/ML 2 ML VIAL IV PRN (21:37)
[2023-12-14] MEDS: SODIUM CHLORIDE 0.9% 1,000 ML IV ONE (21:56)
--- NOTE | 2023-12-14 23:58 | Communication Note ---
Date of Service: December 14, 2023 Patient was having some nausea and dizziness as well as a headache. 2 days ago he had a fall where he hit his head. CT head at that time was negative. Patient had a blood pressure of 97/60 with a heart rate of 70. Gave 1 L bolus of fluids. Which helped slightly though still had a headache as well as dizziness. Orthostatic vitals were obtained. Did obtain a CT of the head to rule out a delayed subdural hematoma. Head CT was negative. Given another 500 bolus. Patient's symptom have mostly resolved at this point.
--- NOTE | 2023-12-15 02:03 | CT Scan Report ---
Exam(s): CT HEAD Without Contrast EXAM: CT Head Without Intravenous Contrast CLINICAL HISTORY: Reason for exam: VELÁZQUEZ, diziness, orthostatic, 2 days post fall. TECHNIQUE: Axial computed tomography images of the head/brain without intravenous contrast. CTDI is 34.93 mGy and DLP is 624.41 mGy-cm. Automated exposure control was utilized for the study. A dose lowering technique was utilized adhering to the principles of ALARA. COMPARISON: 12/12/23 FINDINGS: Brain: Stable volume loss and chronic small vessel ischemic change. Figueroa- white matter differentiation maintained. No hemorrhage, edema, or midline shift. Ventricles: No hydrocephalus. Bones/joints: No skull fracture. Soft tissues: Unremarkable. Vasculature: Intracranial atherosclerosis. Sinuses: Unremarkable as visualized. Mastoid air cells: Opacified left mastoid tip, stable from prior. Orbits: Bilateral lens replacements. IMPRESSION: No acute intracranial process. Electronically signed by: Gladys Petersen M.D. 12/15/23 02:02 AM
[2023-12-15] MEDS: SODIUM CHLORIDE 0.9% 500 ML IV ONE (02:44)
[2023-12-15] MEDS: oxyCODONE HCL IR 5 MG TAB (IMMEDIATE RELEASE) PO PRN (03:57)
[2023-12-15 07:47] LABS: Basophils # (auto) 0.02 K/uL (0.00-0.20); Basophils % (auto) 0.2 %; Eosinophils # (auto) 0.24 K/uL (0.00-0.50); Eosinophils % (auto) 2.9 %; Hematocrit (blood only) 39.9 % (42.0-52.0); Hemoglobin 12.6 g/dl (14.0-18.0); Immature Granulocytes # (auto) 0.04 K/uL (0.01-0.20); Immature Granulocytes % (auto) 0.5 %; Lymphocytes # (auto) 0.72 K/uL (1.20-3.40); Lymphocytes % (auto) 8.8 %; Mean Corpuscular Hemoglobin 27.4 pg (25.0-34.0); Mean Corpuscular Hgb Conc 31.6 g/dL (32.0-36.0); Mean Corpuscular Volume 86.7 fL (80.0-100.0); Mean Platelet Volume 10.5 fL (9.4-12.4); Monocytes # (auto) 0.76 K/uL (0.11-0.59); Monocytes % (auto) 9.3 %; Neutrophils # (auto) 6.41 K/uL (1.40-6.50); Neutrophils % (auto) 78.3 %; Platelet Count 151 K/uL (130-400); RDW Coefficient of Variation 14.4 % (11.5-14.5); RDW Standard Deviation 45.9 fL (36.4-46.3); White Blood Count 8.19 K/ul (4.8-10.8)
[2023-12-15 07:59] LABS: INR 1.7 (0.9-1.1); Prothrombin Time 17.9 Seconds (9.0-12.0)
[2023-12-15 08:12] LABS: Calcium 8.1 mg/dl (8.6-10.3); Potassium 3.7 mmol/L (3.5-5.1)
[2023-12-15 08:17] LABS: Est GFR (African American) 79.9 ml/min
[2023-12-15 08:18] LABS: BUN Creatinine Ratio 17.3 (10-20); Creatinine Clr Calc Pharmacy 88.8 ml/min; Est GFR (Non-African American) 68.9 ml/min
--- NOTE | 2023-12-15 14:17 | Hospitalist Progress Note ---
Date of Service December 15, 2023 Assessment & Plan (1) Fall: Plan: Patient presented to the ER on 12/11 following a fall at home while ambulating from bathroom to bed. Patient reports he was on the ground for approximately 3 hours prior to seeking help. He also notes he struck his head on the fall. He is on Coumadin -Head CT and Cervical spine CT negative -Hip and knee CT negative -Hip, pelvis, knees, femur, tibia, and fibula X-rays all negative -CBC reviewed 12/14: 8.19 (downtrending) -BMP reviewed 12/13: creatinine 1.04 -CK 12/12: 61 -Orthopedics consult reviewed 12/12 -No surgery planned -PT/OT -consider pain management for back pain -too soon for additional knee injections -follow up outpatient -Tylenol and switched to PO pain medication with Oxycodone 5mg every 4 hours as needed for pain. -PT consult reviewed 12/12: recommending rehab -12/14: dizziness likely due to orthostatic hypotension Home lisinopril on hold - patient likely does not need this upon discharge. AM CBC, BMP (2) Contusion of hip, right: Plan: -As above, no acute fracture seen on hip x-ray or CT. (3) Unable to ambulate: Plan: -Patient is unable to put pressure on the right leg, Plan as above (4) UTI (urinary tract infection): Plan: Sepsis POA -UA positive in the ED for UTI. -Will start on ceftriaxone. -Does have an allergy to penicillins, will monitor closely. -Urine culture showing proteus mirabilis. Sensitives show Ceftriaxone is sensitive. Will continue course in the hospital and transition to PO antibiotics if needed on discharge. Plan Chronic conditions: HTN: home medication on hold given stable pressures. 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 Recently discharged from wound care. Diet: Carb consistent Code status: Conditional code DVT ppx: Coumadin Dispo: waiting rehab placement Admission and Anticipated Discharge Date Admission Date: December 12, 2023 Subjective Patient seen and examined this afternoon. Patient reports to be feeling depressed today as he is still in the hospital and is anxious about getting to rehab. patient also reports some episodes of dizziness from lying to sitting. Patient reports if he sits on the edge of his bed for a little while after sitting up, the dizziness subsides. He denies any further complaints. Physical Exam Constitutional: WD/WN, vitals as above Eyes: PERRL, conjunctivae normal, anicteric sclerae Respiratory: normal respiratory effort, lungs clear to auscultation Cardiovascular: RRR, no murmur, no edema Skin: no rashes, warm and dry Psychiatric: A+Ox3, euthymic affect Results & Data Results & Data Vital Signs (Past 12 Hours) Vital Signs Temp Pulse Resp BP Pulse Ox O2 Del Method 12/15/23 07:54 36.5 C 68 16 103/58 L 97 Room Air PG Care Time/CCT Total # of Minutes Spent Total Time Spent with Patient: Total time spent is greater than 50% in coordination of care (as documented) at patient's floor/unit and/or counseling patient: Coding Level of Care Code 65870 SUB INP/OBS CARE 2/35MIN Diagnoses Fall W19.XXXA Encounter type: initial encounter Contusion of hip, right S70.01XA Encounter type: initial encounter Unable to ambulate R26.2 UTI (urinary tract infection) N39.0 (1) Fall Encounter type: initial encounter Qualified Code(s): W19.XXXA - Unspecified fall, initial encounter (2) Contusion of hip, right Encounter type: initial encounter Qualified Code(s): S70.01XA - Contusion of right hip, initial encounter
[2023-12-16 06:02] LABS: Basophils # (auto) 0.02 K/uL (0.00-0.20); Basophils % (auto) 0.3 %; Eosinophils # (auto) 0.26 K/uL (0.00-0.50); Eosinophils % (auto) 4.2 %; Hematocrit (blood only) 37.6 % (42.0-52.0); Hemoglobin 12.5 g/dl (14.0-18.0); Immature Granulocytes # (auto) 0.06 K/uL (0.01-0.20); Lymphocytes # (auto) 0.71 K/uL (1.20-3.40); Lymphocytes % (auto) 11.5 %; Mean Corpuscular Hemoglobin 28.2 pg (25.0-34.0); Mean Corpuscular Hgb Conc 33.2 g/dL (32.0-36.0); Mean Corpuscular Volume 84.7 fL (80.0-100.0); Mean Platelet Volume 10.4 fL (9.4-12.4); Monocytes # (auto) 0.83 K/uL (0.11-0.59); Monocytes % (auto) 13.4 %; Neutrophils % (auto) 69.6 %; Platelet Count 167 K/uL (130-400); RDW Coefficient of Variation 14.2 % (11.5-14.5); RDW Standard Deviation 43.9 fL (36.4-46.3); Red Blood Count 4.44 M/uL (4.70-6.10); White Blood Count 6.18 K/ul (4.8-10.8)
[2023-12-16 06:23] LABS: Calcium 8.5 mg/dl (8.6-10.3); Creatinine Clr Calc Pharmacy 87.1 ml/min; Est GFR (African American) 78.1 ml/min; Est GFR (Non-African American) 67.4 ml/min; Potassium 3.9 mmol/L (3.5-5.1)
[2023-12-16 06:30] LABS: Prothrombin Time 20.2 Seconds (9.0-12.0)
[2023-12-16] MEDS: POLYETHYLENE (MIRALAX) 17 GM PACK PO SCH (13:45)
--- NOTE | 2023-12-16 14:37 | Hospitalist Progress Note ---
Date of Service December 16, 2023 Assessment & Plan (1) Fall: Plan: Patient presented to the ER on 12/11 following a fall at home while ambulating from bathroom to bed. Patient reports he was on the ground for approximately 3 hours prior to seeking help. He also notes he struck his head on the fall. He is on Coumadin -Head CT and Cervical spine CT negative -Hip and knee CT negative -Hip, pelvis, knees, femur, tibia, and fibula X-rays all negative -CBC reviewed 12/15: WBC 6.18 -BMP reviewed 12/15: creatinine 1.06 -CK 12/12: 61 -Orthopedics consult reviewed 12/12 -No surgery planned -PT/OT -consider pain management for back pain -too soon for additional knee injections -follow up outpatient -Tylenol and switched to PO pain medication with Oxycodone 5mg every 4 hours as needed for pain. -PT consult reviewed 12/12: recommending rehab -12/14: dizziness likely due to orthostatic hypotension Home lisinopril on hold - patient likely does not need this upon discharge. (2) Contusion of hip, right: Plan: -As above, no acute fracture seen on hip x-ray or CT. (3) Unable to ambulate: Plan: -Patient is unable to put pressure on the right leg, Plan as above (4) UTI (urinary tract infection): Plan: Sepsis POA -UA positive in the ED for UTI. -Will start on ceftriaxone. -Does have an allergy to penicillins, will monitor closely. -Urine culture showing proteus mirabilis. Sensitives show Ceftriaxone is sensitive. Will continue course in the hospital and transition to PO antibiotics if needed on discharge. Plan Chronic conditions: HTN: home medication on hold given stable pressures. 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 Recently discharged from wound care. Diet: Carb consistent Code status: Conditional code DVT ppx: Coumadin Dispo: waiting rehab placement - [facility] a bed on 11/17 Admission and Anticipated Discharge Date Admission Date: December 12, 2023 Subjective Patient seen and examined this afternoon. Patient reports to be doing well today. He denies any complaints. He is looking forward to going to rehab to regain his strength. Physical Exam 2 Constitutional: WD/WN, vitals as above Eyes: PERRL, conjunctivae normal, anicteric sclerae Respiratory: normal respiratory effort Skin: no rashes, warm and dry Psychiatric: A+Ox3, euthymic affect Results & Data Results & Data Vital Signs (Past 12 Hours) Vital Signs Temp Pulse Resp BP Pulse Ox O2 Del Method 12/16/23 12:20 36.5 C 70 16 122/64 96 Room Air 12/16/23 08:08 36.5 C 62 16 138/74 97 Room Air Laboratory Results 12/16/23 05:21 12/16/23 05:21 PG Care Time/CCT Total # of Minutes Spent Total Time Spent with Patient: Total time spent is greater than 50% in coordination of care (as documented) at patient's floor/unit and/or counseling patient: Coding Level of Care Code 93827 SUB INP/OBS CARE 2/35MIN Diagnoses Fall W19.XXXA Encounter type: initial encounter Contusion of hip, right S70.01XA Encounter type: initial encounter Unable to ambulate R26.2 UTI (urinary tract infection) N39.0 (1) Fall Encounter type: initial encounter Qualified Code(s): W19.XXXA - Unspecified fall, initial encounter (2) Contusion of hip, right Encounter type: initial encounter Qualified Code(s): S70.01XA - Contusion of right hip, initial encounter
[2023-12-16] MEDS: WARFARIN SOD 10 MG TAB PO SCH (17:06)
[2023-12-17 06:38] LABS: INR 2.4 (0.9-1.1); Prothrombin Time 24.2 Seconds (9.0-12.0)
--- NOTE | 2023-12-17 15:08 | Hospitalist Progress Note ---
Date of Service December 17, 2023 Assessment & Plan (1) Fall: Plan: Patient presented to the ER on 12/11 following a fall at home while ambulating from bathroom to bed. Patient reports he was on the ground for approximately 3 hours prior to seeking help. He also notes he struck his head on the fall. He is on Coumadin -Head CT and Cervical spine CT negative -Hip and knee CT negative -Hip, pelvis, knees, femur, tibia, and fibula X-rays all negative -CBC reviewed 12/15: WBC 6.18 -BMP reviewed 12/15: creatinine 1.06 -CK 12/12: 61 -Orthopedics consult reviewed 12/12 -No surgery planned -PT/OT -consider pain management for back pain -too soon for additional knee injections -follow up outpatient -Tylenol and switched to PO pain medication with Oxycodone 5mg every 4 hours as needed for pain. -PT consult reviewed 12/12: recommending rehab -12/14: dizziness likely due to orthostatic hypotension Home lisinopril on hold - patient likely does not need this upon discharge. (2) Contusion of hip, right: Plan: -As above, no acute fracture seen on hip x-ray or CT. (3) Unable to ambulate: Plan: -Patient is unable to put pressure on the right leg, Plan as above (4) UTI (urinary tract infection): Plan: Sepsis POA -UA positive in the ED for UTI. -Last dose of Ceftriaxone 12/17 -Does have an allergy to penicillins, will monitor closely. -Urine culture showing proteus mirabilis. Sensitives show Ceftriaxone is sensitive. Will continue course in the hospital and transition to PO antibiotics if needed on discharge. Plan Chronic conditions: HTN: home medication on hold given stable pressures. 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 Recently discharged from wound care. Diet: Carb consistent Code status: Conditional code DVT ppx: Coumadin Dispo: waiting rehab placement - [facility] a bed on 11/17 Admission and Anticipated Discharge Date Admission Date: December 12, 2023 Subjective Patient seen and examined today. Patient worked with therapy. He is still feeling weak but denies any additional complaints. Physical Exam 2 Constitutional: WD/WN, vitals as above Eyes: PERRL, conjunctivae normal, anicteric sclerae Respiratory: normal respiratory effort, lungs clear to auscultation Cardiovascular: RRR, no murmur, no edema Skin: no rashes, warm and dry Psychiatric: A+Ox3, euthymic affect Results & Data Results & Data Vital Signs (Past 12 Hours) Vital Signs Temp Pulse Resp BP Pulse Ox O2 Del Method 12/17/23 07:52 36.2 C L 50 L 16 153/76 H 98 Room Air Laboratory Results 12/16/23 05:21 12/16/23 05:21 PG Care Time/CCT Total # of Minutes Spent Total Time Spent with Patient: Total time spent is greater than 50% in coordination of care (as documented) at patient's floor/unit and/or counseling patient: Coding Level of Care Code 81895 SUB INP/OBS CARE 2/35MIN Diagnoses Fall W19.XXXA Encounter type: initial encounter Contusion of hip, right S70.01XA Encounter type: initial encounter Unable to ambulate R26.2 UTI (urinary tract infection) N39.0 (1) Fall Encounter type: initial encounter Qualified Code(s): W19.XXXA - Unspecified fall, initial encounter (2) Contusion of hip, right Encounter type: initial encounter Qualified Code(s): S70.01XA - Contusion of right hip, initial encounter
[2023-12-18 07:23] LABS: INR 2.6 (0.9-1.1); Prothrombin Time 25.6 Seconds (9.0-12.0)
[2023-12-18] MEDS ORDERED: Nursing to Pharmacy Communication SCH (11:45)
--- NOTE | 2023-12-18 12:46 | Hospitalist Progress Note ---
Date of Service December 18, 2023 Assessment & Plan (1) Fall: Plan: Patient presented to the ER on 12/11 following a fall at home while ambulating from bathroom to bed. Patient reports he was on the ground for approximately 3 hours prior to seeking help. He also notes he struck his head on the fall. He is on Coumadin -Head CT and Cervical spine CT negative -Hip and knee CT negative -Hip, pelvis, knees, femur, tibia, and fibula X-rays all negative -CBC reviewed 12/15: WBC 6.18 -BMP reviewed 12/15: creatinine 1.06 -CK 12/12: 61 -Orthopedics consult reviewed 12/12 -No surgery planned -PT/OT -consider pain management for back pain -too soon for additional knee injections -follow up outpatient -Tylenol and switched to PO pain medication with Oxycodone 5mg every 4 hours as needed for pain. -PT consult reviewed 12/12: recommending rehab -12/14: dizziness likely due to orthostatic hypotension Home lisinopril on hold - patient likely does not need this upon discharge. (2) Contusion of hip, right: Plan: -As above, no acute fracture seen on hip x-ray or CT. (3) Unable to ambulate: Plan: -Patient is unable to put pressure on the right leg, Plan as above (4) UTI (urinary tract infection): Plan: Resolved. Sepsis POA -UA positive in the ED for UTI. -Last dose of Ceftriaxone 12/17 -Does have an allergy to penicillins, will monitor closely. -Urine culture showing proteus mirabilis. Sensitives show Ceftriaxone is sensitive. Plan Chronic conditions: HTN: home medication on hold given stable pressures. 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 Recently discharged from wound care. Diet: Carb consistent Code status: Conditional code DVT ppx: Coumadin Dispo: waiting rehab placement - [facility] a bed on 11/17 Admission and Anticipated Discharge Date Admission Date: December 12, 2023 Subjective Patient seen and examined this afternoon. Patient reports to be doing well today. He denied any complaints. He is hopeful to have a bed at [facility] tomorrow. Physical Exam Constitutional: WD/WN, vitals as above Eyes: PERRL, conjunctivae normal, anicteric sclerae Respiratory: normal respiratory effort Cardiovascular: RRR, no murmur, no edema Skin: no rashes, warm and dry Psychiatric: A+Ox3, euthymic affect Results & Data Results & Data Vital Signs (Past 12 Hours) Vital Signs Temp Pulse Resp BP Pulse Ox O2 Del Method 12/18/23 07:21 36.5 C 54 L 18 127/72 94 Room Air PG Care Time/CCT Total # of Minutes Spent Total Time Spent with Patient: Total time spent is greater than 50% in coordination of care (as documented) at patient's floor/unit and/or counseling patient: Coding Level of Care Code 27100 SUB INP/OBS CARE 2/35MIN Diagnoses Fall W19.XXXA Encounter type: initial encounter Contusion of hip, right S70.01XA Encounter type: initial encounter Unable to ambulate R26.2 UTI (urinary tract infection) N39.0 (1) Fall Encounter type: initial encounter Qualified Code(s): W19.XXXA - Unspecified fall, initial encounter (2) Contusion of hip, right Encounter type: initial encounter Qualified Code(s): S70.01XA - Contusion of right hip, initial encounter
[2023-12-18] MEDS: ALFUZOSIN HCL 10 MG PO SCH (20:04)
[2023-12-19] MEDS: lisinopril 5 MG TAB PO SCH (09:14)
--- NOTE | 2023-12-19 15:14 | Hospitalist Progress Note ---
Date of Service December 19, 2023 Assessment & Plan (1) Fall: Plan: Patient presented to the ER on 12/11 following a fall at home while ambulating from bathroom to bed. Patient reports he was on the ground for approximately 3 hours prior to seeking help. He also notes he struck his head on the fall. He is on Coumadin -Head CT and Cervical spine CT negative -Hip and knee CT negative -Hip, pelvis, knees, femur, tibia, and fibula X-rays all negative -CK 12/12: 61 -Orthopedics consult reviewed 12/12 -No surgery planned, can follow up outpatient -consider pain management for back pain -too soon for additional knee injections Pain control: Tylenol and oxycodone -PT/OT: recommending rehab - CM following Positive orthostatic vital signs 12/13, have not been redone since - losartan has been held, but resumed for 12/18 - patient did report dizziness with fourth walk today, will recheck ortho VS (2) Contusion of hip, right: Plan: -As above, no acute fracture seen on hip x-ray or CT. (3) UTI (urinary tract infection): Plan: Sepsis POA Resolved. 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 Recently discharged from wound care. Dispo: continued inpatient stay Admission and Anticipated Discharge Date Admission Date: December 12, 2023 Subjective Patient seen sitting up in the chair. Did say he felt a little light headed after his fourth walk of the day, which has resolved and admits that it was alittle too much for him and more than what he normally does He is annoyed with how long he is having to wait for a rehab bed Review of Systems Review of Systems: All systems reviewed & are unremarkable except as noted in Subjective Physical Exam Physical Exam: General: NAD, VS as above, affect is much improved from the last time I saw him on a prior admission Resp: normal respiratory effort, lungs clear to auscultation CV: RRR, no murmur, Abd: normal bowel sounds, non tender, no hepatosplenomegaly Extremities: Moves all extremities, no edema, nnamdi hose in place Neuro: A&O x3, Skin: intact, no lesions noted Results & Data Results & Data Vital Signs (Past 12 Hours) Vital Signs Temp Pulse Resp BP Pulse Ox O2 Del Method 12/19/23 07:30 36.3 C L 57 L 16 160/88 H 98 Room Air PG Care Time/CCT Total # of Minutes Spent Total Time Spent with Patient: Total time spent is greater than 50% in coordination of care (as documented) at patient's floor/unit and/or counseling patient: Coding Level of Care Code 25008 SUB INP/OBS CARE 2/35MIN Diagnoses Fall W19.XXXA Encounter type: initial encounter Contusion of hip, right S70.01XA Encounter type: initial encounter UTI (urinary tract infection) N39.0 (1) Fall Encounter type: initial encounter Qualified Code(s): W19.XXXA - Unspecified fall, initial encounter (2) Contusion of hip, right Encounter type: initial encounter Qualified Code(s): S70.01XA - Contusion of right hip, initial encounter
[2023-12-19] MEDS: SODIUM CHLORIDE 0.9% 500 ML IV ONE (18:24)
[2023-12-20 06:55] LABS: INR 1.9 (0.9-1.1); Prothrombin Time 19.8 Seconds (9.0-12.0)
--- NOTE | 2023-12-20 15:55 | Hospitalist Progress Note ---
Date of Service December 20, 2023 Assessment & Plan (1) Fall: Plan: Patient presented to the ER on 12/11 following a fall at home while ambulating from bathroom to bed. Patient reports he was on the ground for approximately 3 hours prior to seeking help. He also notes he struck his head on the fall. He is on Coumadin -Head CT and Cervical spine CT negative -Hip and knee CT negative -Hip, pelvis, knees, femur, tibia, and fibula X-rays all negative -CK on admission: 61 -Orthopedics consult reviewed 12/12 -No surgery planned, can follow up outpatient -consider pain management for back pain -too soon for additional knee injections Pain control: Tylenol and oxycodone -PT/OT: recommending rehab - CM following Positive orthostatic vital signs 12/13, have not been redone since - losartan has been held, but resumed for 12/18 - patient did report dizziness with fourth walk today, - recheck ortho VS do show a drop in BP but patient is not hypotensive and symptoms much improved, continue current management (2) Contusion of hip, right: Plan: -As above, no acute fracture seen on hip x-ray or CT. (3) UTI (urinary tract infection): Plan: Sepsis POA Resolved. 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 Recently discharged from wound care. Dispo: continued inpatient stay Admission and Anticipated Discharge Date Admission Date: December 12, 2023 Subjective Patient seen sitting in the chair after lunch, he is happy that they have found him a bed at [facility]. not reporting dizziness today, has walked in the ruiz Review of Systems Review of Systems: All systems reviewed & are unremarkable except as noted in Subjective Physical Exam Physical Exam: General: NAD, VS as above, affect is much improved from the last time I saw him on a prior admission Resp: normal respiratory effort, lungs clear to auscultation CV: RRR, no murmur, Abd: normal bowel sounds, non tender, no hepatosplenomegaly Extremities: Moves all extremities, no edema, nnamdi hose in place Neuro: A&O x3, Skin: intact, no lesions noted Results & Data Results & Data Vital Signs (Past 12 Hours) Vital Signs Temp Pulse Resp BP Pulse Ox O2 Del Method 12/20/23 14:38 36.4 C L 58 L 16 154/80 H 98 Room Air 12/20/23 07:28 36.3 C L 78 18 171/98 H 98 Room Air Laboratory Results INR reviewed PG Care Time/CCT Total # of Minutes Spent Total Time Spent with Patient: Total time spent is greater than 50% in coordination of care (as documented) at patient's floor/unit and/or counseling patient: Coding Level of Care Code 40129 SUB INP/OBS CARE 2/35MIN Diagnoses Fall W19.XXXA Encounter type: initial encounter Contusion of hip, right S70.01XA Encounter type: initial encounter UTI (urinary tract infection) N39.0 (1) Fall Encounter type: initial encounter Qualified Code(s): W19.XXXA - Unspecified fall, initial encounter (2) Contusion of hip, right Encounter type: initial encounter Qualified Code(s): S70.01XA - Contusion of right hip, initial encounter
[2023-12-21 07:18] LABS: INR 2.3 (0.9-1.1); Prothrombin Time 23.3 Seconds (9.0-12.0)
[2023-12-21 07:34] VITALS: RESP 16; TEMP 97.5; O2SAT 100
[2023-12-21 14:31] VITALS: BP 126/73; PULSE 55
--- NOTE | 2023-12-21 14:32 | Discharge Summary ---
Discharge Summary Date of Service December 21, 2023 Principal Dx & Hospital Course #1 = Principal Diagnosis (1) Fall: Patient presented to the ER on 12/11 following a fall at home while ambulating from bathroom to bed. Patient reports he was on the ground for approximately 3 hours prior to seeking help. He also notes he struck his head on the fall. He is on Coumadin -Head CT and Cervical spine CT negative -Hip and knee CT negative -Hip, pelvis, knees, femur, tibia, and fibula X-rays all negative -CK on admission: 61 -Orthopedics consulted - no urgent management, can follow-up outpatient. Just had knee injections. Pain control: Tylenol -PT/OT: recommending rehab, Unfortunately this was denied by insurance and he will be discharged home with home health patient did have positive orthostatic vital signs earlier in the stay, for that reason losartan and hydrochlorothiazide were held. Orthostatics continue to improve and symptoms also improved while losartan was resumed. Can resume hydrochlorothiazide at discharge however if struggling with dizziness would recommend discontinuation in the outpatient setting. (2) Contusion of hip, right: -As above, no acute fracture seen on hip x-ray or CT. (3) UTI (urinary tract infection): Sepsis POA Resolved. 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 Recently discharged from wound care. 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 Patient states that this morning he was having trouble getting from the bathroom to the bed and felt very tired. He reports that he was very active yesterday and was feeling very weak today. States that this happens from time to time and that his knees are very bad. He does follow with Dr. Lopez of orthopedics and there have been talks about knee replacements. Though before surgery he would need to be 6 months free of any sores or ulcers as well as weight loss. Patient has been following with wound care for ulcers. Patient states that his knees are very bad and where very sore today. He tried to ambulate to the bathroom around 230 and he had a fall due to this pain and weakness. Patient fell onto his right side onto his right hip and right knee. Patient also states that he hit his head when falling to the ground. Patient does take Coumadin. Patient was on the ground and unable to get to the phone for a couple hours. States that he is having significant right hip pain as well as right knee pain. He is unable to put any weight on the right leg. Patient denies any loss of consciousness or dizziness. Does state that he was having some issues ambulating all day and did not eat much but did have some water and Gatorade. Discharge Exam General: NAD, VS as above, affect is much improved from the last time I saw him on a prior admission Resp: normal respiratory effort, lungs clear to auscultation CV: RRR, no murmur, Abd: normal bowel sounds, non tender, no hepatosplenomegaly Extremities: Moves all extremities, no edema, nnamdi hose in place Neuro: A&O x3, Skin: intact, no lesions noted Discharge Plan Discharge Items Patient Disposition: Home - Home Health Services Reason For Visit: FALL, HIT HEAD, R HIP AND KNEE PAIN Discharge Diagnosis: Fall Activity: Resume your previous activity Activity Comment: Work with therapy to get stronger Weightbearing: Full weightbearing Non-emergency contact: Primary Care Provider Call non-emergency contact if: you have any medication questions, your symptoms worsen, your pain is worsening and your temperature is above 101 Follow-up/Referrals: Henry Prieto, [Primary Care Provider] - ( follow-up within 1 week) Diet: Carb Consistent or DM2 Addtl Attending Provider Instructions: Mr. Elias You were admitted after a fall, thankfully, all of the imaging did not show any fractures. Your fall was likely caused by a urinary tract infection that was treated while you were in the hospital. Continue to work with therapy to get stronger. Make sure you are moving everyday - but be careful not to over do it. INR was 2.3 on day of discharge. No changes to your home medications. Make sure you reschedule your urology and anticoagulation clinic appointment. Activity: You can do normal everyday activities as your body allows. Take rest breaks if you feel tired. Do not overexert. Stop activity if you have pain, shortness of breath or feel dizzy. Follow-up appointments: Make an appointment with your primary care physician within one week of discharge. A copy of this summary will be sent to them. Every time you see your primary care physician, or any other doctor, bring your medication list, and a list of questions. CONTACT YOUR PRIMARY CARE PROVIDER if you experience any of the following: Shortness of breath or difficulty breathing Fevers or chills Feeling tired with normal activity or experiencing dizziness or fainting Difficulty following your treatment plan, or difficulty taking medications CALL 911 OR GO TO THE EMERGENCY DEPARTMENT if you experience any of the following: Severe abdominal pain or nausea/vomiting Severe chest pain, or chest pain that radiates (moves) to your jaw or arm Sudden, severe shortness of breath or difficulty breathing Thank you for allowing us to participate in your care. Pending Studies at Discharge: No Stand-Alone Forms: My [facility] Medications and DC Order Prescriptions: Continued warfarin 5 mg tablet See Rx Instructions PO UD Rx Instructions: 10mg q Mondays and Fridays, 5mg x 5 days per [facility] orally use as directed; Cosentyx Pen (2 Pens) 150 mg/mL pen injector 300 mg subcut .COMPLEX Qty: 6 3RF Rx Instructions: 300 mg every 4 weeks (on Tue') for maintenance as directed. duloxetine 60 mg capsule,delayed release(DR/EC) 60 mg PO QAM Qty: 90 3RF hydrochlorothiazide 25 mg tablet 25 mg PO QAM Qty: 90 3RF pantoprazole 40 mg tablet,delayed release (DR/EC) 40 mg PO BID Qty: 90 3RF aripiprazole [Abilify] 5 mg tablet 5 mg PO QAM Qty: 30 1RF Rx Instructions: for depression potassium chloride 20 mEq tablet,ER particles/crystals 20 meq PO DAILY Qty: 90 3RF lisinopril 5 mg tablet 5 mg PO DAILY Qty: 30 5RF gabapentin 300 mg capsule 300 mg PO TID Qty: 90 5RF (DME) Shower Chair Misc See Rx Instructions .Route Qty: 1 0RF Rx Instructions: As directed (DME) Ultra-Light Rollator Misc See Rx Instructions .Route Qty: 1 0RF Rx Instructions: As directed alfuzosin 10 mg tablet extended release 24 hr 10 mg PO DAILY Qty: 30 2RF Rx Instructions: administer after the same meal each day cholecalciferol (vitamin D3) 50 mcg (2,000 unit) capsule 50 mcg PO DAILY cyanocobalamin (vitamin B-12) 1,000 mcg tablet 1,000 mcg PO DAILY loratadine 10 mg tablet 10 mg PO DAILY PRN (Reason: Allergy Symptoms) polyethylene glycol 3350 [Miralax] 17 gram powder in packet 17 g PO DAILY PRN (Reason: Constipation) Rx Instructions: purchase [id number] multivitamin with minerals Capsule 1 cap PO DAILY acetaminophen 325 mg Tablet 650 mg PO Q6H PRN (Reason: pain) Qty: 1 0RF nystatin 100,000 unit/gram cream 1 applic TOPICAL BID PRN (Reason: Rash) ondansetron HCl 4 mg tablet 4 mg PO DIRECTED PRN (Reason: Nausea) Discharge Orders: Discharge Order (Routine); Ordered 12/21/23 Ordered By: Clara Avilez Admission Data Admit Date/Time: 12/12/23 20:36 Attending Provider: Alfie Penn Admit Provider: Ralph Shane Primary Care Provider: Henry Prieto Other Providers: Padma Lopez; Antony Myers; Ilana Nails; Catina Camp; Sandee Loera; Wojciech Cannon; Norma Trujillo; Keanu Lopez; Odalys Talbert; Kenn Orlando; Henry Mayberry; Ashley Latham; Henry Bryson; Steven Hughes; Ralph Rhodes; [facility]; [facility],; [facility]; [facility] Hospital Stay Data Consultations 12/12/23 20:48 ED Decision to Admit Stat 12/12/23 23:46 Consult Orthopedic Surgery Routine Diagnostic Imagining Performed Cervical Spine CT 12/12/23 18:46 Exam(s): CT C SPINE EXAM: CT Cervical Spine Without Intravenous Contrast CLINICAL HISTORY: Reason for exam: fall. TECHNIQUE: Axial computed tomography images of the cervical spine without intravenous contrast. CTDI is 26.96 mGy and DLP is 603.62 mGy-cm. Automated exposure control was utilized for the study. A dose lowering technique was utilized adhering to the principles of ALARA. COMPARISON: No relevant prior studies available. FINDINGS: Vertebrae: Osteopenia. No acute fracture or subluxation. Discs/spinal canal/neural foramina: Multilevel disc, facet, and uncovertebral joint degeneration. Mild degrees of central spinal canal narrowing, greatest at C4-C5. Varying degrees of bilateral foraminal narrowing, advanced bilaterally at C3-C4 and on the right at C5-C6 and C6- C7. Soft tissues: Unremarkable. IMPRESSION: No acute findings in the cervical spine. Electronically signed by: Gladys Petersen M.D. 12/12/23 19:53 PM Chest X-Ray 12/12/23 18:46 PORTABLE SEMIERECT AP CHEST RADIOGRAPH CLINICAL HISTORY: Chest pain, nonspecific. COMPARISON STUDY: Chest CT September 10, 2023. Chest radiograph November 18, 2023. FINDINGS: Lung volumes are normal. Lungs are clear. There is no pneumothorax or pleural effusion. Cardiac size is stable. Mediastinal contours are normal. There is no evidence for pulmonary edema. IMPRESSION: No acute cardiopulmonary findings. ACT 112: Negative or not required by law. Electronically signed by: Félix Delatorre M.D. 12/13/2023 7:[address] 12/12/23 18:46 Exam(s): CT HEAD Without Contrast EXAM: CT Head Without Intravenous Contrast CLINICAL HISTORY: Reason for exam: fall. TECHNIQUE: Axial computed tomography images of the head/brain without intravenous contrast. CTDI is 36.18 mGy and DLP is 702.46 mGy-cm. Automated exposure control was utilized for the study. A dose lowering technique was utilized adhering to the principles of ALARA. COMPARISON: 09/10/23 FINDINGS: Brain: Age-related parenchymal volume loss. Periventricular and deep cerebral white matter hypoattenuation suggesting chronic small vessel ischemic change. Figueroa-white matter differentiation maintained. No hemorrhage, mass effect, parenchymal edema, or midline shift. Ventricles: Unremarkable. No hydrocephalus. Bones/joints: Unremarkable. No acute fracture. Soft tissues: Unremarkable. Vasculature: Intracranial atherosclerosis. Sinuses: Unremarkable as visualized. Mastoid air cells: Unremarkable as visualized. No mastoid effusion. Orbits: Bilateral lens replacements. IMPRESSION: No acute intracranial process. Electronically signed by: Gladys Petersen M.D. 12/12/23 19:55 PM Hip/Pelvis X-Ray 12/12/23 18:46 XR hip RT 2V w pelvis HISTORY: 78 years-old Male fall acute pelvic trauma COMPARISON: CT abdomen and pelvis 11/18/2023 TECHNIQUE: AP view of the pelvis with 2 views of the hips FINDINGS: Mild osteoarthritis of the hips. Study is limited secondary to patient body habitus. No acute fracture or dislocation identified. IMPRESSION: No acute fracture or dislocation identified. ACT 112: Negative or not required by law. The above report was generated using voice recognition software. It may contain grammatical, syntax or spelling errors. Electronically signed by: Steven Thomas M.D. 12/13/2023 6:[address] 12/12/23 19:17 Exam(s): CT RIGHT HIP Without Contrast EXAM: CT Right Lower Extremity Without Intravenous Contrast, Hip CLINICAL HISTORY: Reason for exam: fakll. TECHNIQUE: Axial computed tomography images of the right hip without intravenous contrast. CTDI is 35.5 mGy and DLP is 747.47 mGy-cm. Automated exposure control was utilized for the study. A dose lowering technique was utilized adhering to the principles of ALARA. COMPARISON: Right hip radiographs 12/12/23 FINDINGS: Bones/joints: No acute fracture. No dislocation. Soft tissues: Unremarkable. IMPRESSION: No acute osseous findings. Electronically signed by: Gladys Petersen M.D. 12/12/23 19:56 PM Knee X-Ray 12/12/23 20:22 XR knee RT 1 or 2V routine, XR tibia fibula RT 2V HISTORY: 78 years-old Male R knee pain . The right knee and lower leg status post fall COMPARISON: CT right knee of same day TECHNIQUE: 2 views of the right knee with 2 views of the right tibia and fibula FINDINGS: KNEE: Tricompartmental osteoarthritis is moderate within the lateral compartment and at least mild to moderate within the medial and patellofemoral compartments. Small joint effusion. No acute fracture or dislocation identified. TIBIA/FIBULA: No acute fracture or dislocation identified. IMPRESSION: No acute fracture or dislocation. ACT 112: Negative or not required by law. The above report was generated using voice recognition software. It may contain grammatical, syntax or spelling errors. Electronically signed by: Steven Thomas M.D. 12/13/2023 6:44 AM Femur X-Ray 12/12/23 20:26 XR femur RT 2V routine CLINICAL HISTORY: Fall. COMPARISON: Right knee radiographs January 27, 2023. CT of the abdomen and pelvis November 18, 2023. FINDINGS: There are no fractures within the right femur. No osseous lesions are present. There are are mild degenerative changes within the right hip and moderate degenerative changes within the right knee. There is a moderate size r ight knee joint effusion. IMPRESSION: No fractures within the right femur. ACT 112: Negative or not required by law. Electronically signed by: Félix Delatorre M.D. 12/13/2023 7:07 AM Tibia/Fibula X-Ray 12/12/23 20:26 XR knee RT 1 or 2V routine, XR tibia fibula RT 2V HISTORY: 78 years-old Male R knee pain . The right knee and lower leg status post fall COMPARISON: CT right knee of same day TECHNIQUE: 2 views of the right knee with 2 views of the right tibia and fibula FINDINGS: KNEE: Tricompartmental osteoarthritis is moderate within the lateral compartment and at least mild to moderate within the medial and patellofemoral compartments. Small joint effusion. No acute fracture or dislocation identified. TIBIA/FIBULA: No acute fracture or dislocation identified. IMPRESSION: No acute fracture or dislocation. ACT 112: Negative or not required by law. The above report was generated using voice recognition software. It may contain grammatical, syntax or spelling errors. Electronically signed by: Steven Thomas M.D. 12/13/2023 6:[address] 12/12/23 20:48 Exam(s): CT RIGHT KNEE Without Contrast EXAM: CT Right Lower Extremity Without Intravenous Contrast, Knee CLINICAL HISTORY: Reason for exam: fall. TECHNIQUE: Axial computed tomography images of the right knee without intravenous contrast. CTDI is 35 mGy and DLP is 601 mGy-cm. Automated exposure control was utilized for the study. A dose lowering technique was utilized adhering to the principles of ALARA. COMPARISON: Right knee radiographs 12/12/23 FINDINGS: Bones/joints: Osteopenia. Tricompartment osteoarthritis. Small joint effusion. Patellar enthesopathy. No fracture. No dislocation. Soft tissues: Unremarkable. IMPRESSION: No acute osseous findings. Electronically signed by: Gladys Petersen M.D. 12/12/23 22:[address] 12/14/23 23:51 Exam(s): CT HEAD Without Contrast EXAM: CT Head Without Intravenous Contrast CLINICAL HISTORY: Reason for exam: [place], diziness, orthostatic, 2 days post fall. TECHNIQUE: Axial computed tomography images of the head/brain without intravenous contrast. CTDI is 34.93 mGy and DLP is 624.41 mGy-cm. Automated exposure control was utilized for the study. A dose lowering technique was utilized adhering to the principles of ALARA. COMPARISON: 12/12/23 FINDINGS: Brain: Stable volume loss and chronic small vessel ischemic change. Figueroa- white matter differentiation maintained. No hemorrhage, edema, or midline shift. Ventricles: No hydrocephalus. Bones/joints: No skull fracture. Soft tissues: Unremarkable. Vasculature: Intracranial atherosclerosis. Sinuses: Unremarkable as visualized. Mastoid air cells: Opacified left mastoid tip, stable from prior. Orbits: Bilateral lens replacements. IMPRESSION: No acute intracranial process. Electronically signed by: Gladys Petersen M.D. 12/15/23 02:02 AM Pending Results Patient Have Any Pending Studies at Discharge: No Discharge Instructions Given to Patient (Per Discharging Provider) Mr. Elias You were admitted after a fall, thankfully, all of the imaging did not show any fractures. Your fall was likely caused by a urinary tract infection that was treated while you were in the hospital. Continue to work with therapy to get stronger. Make sure you are moving everyday - but be careful not to over do it. INR was 2.3 on day of discharge. No changes to your home medications. Make sure you reschedule your urology and anticoagulation clinic appointment. Activity: You can do normal everyday activities as your body allows. Take rest breaks if you feel tired. Do not overexert. Stop activity if you have pain, shortness of breath or feel dizzy. Follow-up appointments: Make an appointment with your primary care physician within one week of discharge. A copy of this summary will be sent to them. Every time you see your primary care physician, or any other doctor, bring your medication list, and a list of questions. CONTACT YOUR PRIMARY CARE PROVIDER if you experience any of the following: Shortness of breath or difficulty breathing Fevers or chills Feeling tired with normal activity or experiencing dizziness or fainting Difficulty following your treatment plan, or difficulty taking medications CALL 911 OR GO TO THE EMERGENCY DEPARTMENT if you experience any of the following: Severe abdominal pain or nausea/vomiting Severe chest pain, or chest pain that radiates (moves) to your jaw or arm Sudden, severe shortness of breath or difficulty breathing Thank you for allowing us to participate in your care. Total Time Total Time Spent Total Time Spent (In Minutes): Time spent day of discharge 32 minutes including direct patient care, medication reconciliation, documentation, review of labs and images, and coordination of care. Coding Level of Care Code 03285 INP/OBS DISCH >30 MIN Diagnoses Fall W19.XXXA Encounter type: initial encounter Contusion of hip, right S70.01XA Encounter type: initial encounter UTI (urinary tract infection) N39.0
== END 2023-12-21 15:25 | disposition home health service (06) | DRG 872 ==
LOC: ED 18:40 → SUATTDRO 20:36 → 3W 20:36 → 3N 12-16 10:11
DX: Z79.899 Other long term (current) drug therapy; G47.00 Insomnia, unspecified; Z79.01 Long term (current) use of anticoagulants; Z86.718 Personal history of other venous thrombosis and embolism; B96.4 Proteus (mirabilis) (morganii) as the cause of diseases classified elsewhere; M54.9 Dorsalgia, unspecified; I95.1 Orthostatic hypotension; N39.0 Urinary tract infection, site not specified; I87.8 Other specified disorders of veins; Y92.008 Other place in unspecified non-institutional (private) residence as the place of occurrence of the external cause; Z86.711 Personal history of pulmonary embolism; R26.9 Unspecified abnormalities of gait and mobility; A41.59 Other Gram-negative sepsis; S70.01XA Contusion of right hip, initial encounter; R51.9 Headache, unspecified; W18.30XA Fall on same level, unspecified, initial encounter; F32.A Depression, unspecified; Z88.0 Allergy status to penicillin; I10 Essential (primary) hypertension

== ENCOUNTER 2023-12-30 21:29 | Inpatient (IN) ==
[2023-12-30 22:19] LABS: Basophils # (auto) 0.04 K/uL (0.00-0.20); Basophils % (auto) 0.6 %; Eosinophils # (auto) 0.05 K/uL (0.00-0.50); Eosinophils % (auto) 0.7 %; Hematocrit (blood only) 43.8 % (42.0-52.0); Hemoglobin 13.9 g/dl (14.0-18.0); Immature Granulocytes # (auto) 0.12 K/uL (0.01-0.20); Immature Granulocytes % (auto) 1.7 %; Lymphocytes % (auto) 10.1 %; Mean Corpuscular Hemoglobin 27.3 pg (25.0-34.0); Mean Corpuscular Hgb Conc 31.7 g/dL (32.0-36.0); Mean Corpuscular Volume 85.9 fL (80.0-100.0); Mean Platelet Volume 9.9 fL (9.4-12.4); Monocytes # (auto) 0.84 K/uL (0.11-0.59); Monocytes % (auto) 12.2 %; Neutrophils # (auto) 5.15 K/uL (1.40-6.50); Neutrophils % (auto) 74.7 %; Platelet Count 208 K/uL (130-400); RDW Coefficient of Variation 14.5 % (11.5-14.5); RDW Standard Deviation 45.5 fL (36.4-46.3)
[2023-12-30 22:34] LABS: Albumin Globulin Ratio 1.2 (0.9-2); Albumin Level 3.9 gm/dl (3.4-5.0); Bilirubin,Total 0.5 mg/dl (0.2-1.0); Calcium 9.5 mg/dl (8.6-10.3); Creatinine Clr Calc Pharmacy 89.6 ml/min; Est GFR (African American) 78.1 ml/min; Est GFR (Non-African American) 67.4 ml/min; Globulin 3.2 gm/dl (2.5-4.0); Potassium 3.8 mmol/L (3.5-5.1); Total Protein 7.1 gm/dl (6.0-8.3)
[2023-12-30] MEDS: ACETAMINOPHEN 1,000 MG/100 ML VIAL IV STA (23:16)
[2023-12-30 23:17] LABS: INR 1.6 (0.9-1.1); Partial Thromboplastin Ratio 1.2; Partial Thromboplastin Time 33 Seconds (21-31); Prothrombin Time 16.7 Seconds (9.0-12.0)
[2023-12-30] MEDS: SODIUM CHLORIDE 0.9% 1,000 ML IV ONE (23:18)
[2023-12-30 23:30] LABS: Troponin I High Sensitivity 6.2 pg/ml (0-20)
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
[2023-12-31] MEDS: WARFARIN SOD 10 MG TAB PO ONE (02:19)
[2023-12-31] MEDS: ONDANSETRON INJ 2 MG/ML 2 ML VIAL IV STA (02:19)
[2023-12-31] MEDS: FAMOTIDINE 20MG IV PUSH 20 MG/5 ML SYR IV STA (02:20)
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
[2023-12-31] MEDS: DEXAMETHASONE SOD INJ 4 MG/ML VIAL IV STA (03:49)
[2023-12-31] MEDS ORDERED: ONDANSETRON INJ 2 MG/ML 2 ML VIAL IV PRN (04:39)
[2023-12-31] MEDS ORDERED: CARBOHYDRATES FOR HYPOGLYCEMIA PO PRN (04:39)
[2023-12-31] MEDS ORDERED: DEXTROSE 50% 50 ML SYRINGE IV PRN (04:39)
[2023-12-31] MEDS: ACETAMINOPHEN 325 MG TAB PO PRN (05:17)
[2023-12-31] MEDS: COUGH DROP (SUGAR FREE) LOZ 24 LOZ/1 BOX BUCCAL PRN (05:18)
[2023-12-31 07:11] LABS: INR 1.5 (0.9-1.1); Prothrombin Time 15.9 Seconds (9.0-12.0)
--- NOTE | 2023-12-31 07:44 | XRay Report ---
XR chest 1V not portable HISTORY: 78 years-old Male cough, COVID + COMPARISON: 12/12/2023 TECHNIQUE: AP view of the chest FINDINGS: Lung volumes are normal. Lungs are clear. There is no pneumothorax or pleural effusion. Cardiac size is stable. Mediastinal contours are normal. There is no evidence for pulmonary edema. IMPRESSION: No acute cardiopulmonary findings. ACT 112: Negative or not required by law. The above report was generated using voice recognition software. It may contain grammatical, syntax o r spelling errors. Electronically signed by: Steven Thomas M.D. 12/31/2023 7:43 AM
[2023-12-31] MEDS: DULoxetine HCL 60 MG CAP PO SCH (08:29)
[2023-12-31] MEDS: PANTOprazole 40 MG TAB PO SCH (08:29)
[2023-12-31] MEDS: TAMSULOSIN HCL 0.4 MG CAP PO SCH (08:29)
[2023-12-31] MEDS: GABAPENTIN 300 MG CAP PO SCH (08:29)
[2023-12-31] MEDS: CYANOCOBALAMIN (B-12) 500 MCG TABLET PO SCH (08:29)
[2023-12-31] MEDS: ARIPiprazole 5 MG TAB PO SCH (08:29)
[2023-12-31] MEDS: CHOLECALCIFEROL 25 MCG (1000 UNITS) TAB PO SCH (08:29)
--- NOTE | 2023-12-31 11:13 | Communication Note ---
Date of Service: December 31, 2023 Generalized weakness/psoriatic arthritis/physical disability with ambulatory dysfunction/morbid obesity/COVID-19- Patient with underlying inflammatory arthritic issues, aggravated by morbid obesity, and more recently now aggravated by COVID 19 infection Likely an element of adrenal insufficiency associated with viral infection as well Give dexamethasone 10 mg IV now, and then 6 mg IV every morning would likely help from an energy level perspective and help deal with the exacerbation of arthritis and ambulatory dysfunction associated with his morbid obesity and COVID-19 infection Order PT and OT assessment Hypertension- Hold hydrochlorothiazide and potassium chloride Hold Lisinopril currently normotensive History of DVT and PE- INR presently subtherapeutic at 1.6 Has a complicated Coumadin dosing schedule Was already given warfarin 10 mg by the ED at 2:19 this a.m. Follow serial INR, he typically follows with the Coumadin clinic Depression and anxiety/neuropathy/lumbar radiculopathy Continue aripiprazole, duloxetine, gabapentin
--- NOTE | 2023-12-31 11:30 | Electrocardiogram Report ---
Test Reason : Blood Pressure : */* mmHG Vent. Rate : 107 BPM Atrial Rate : 107 BPM P-R Int : 202 ms QRS Dur : 74 ms QT Int : 312 ms P-R-T Axes : 47 -20 54 degrees QTcB Int : 416 ms Sinus tachycardia with Premature supraventricular complexes Low voltage QRS Borderline ECG When compared with ECG of 12-Dec-2023 18:46, Premature supraventricular complexes are now Present Confirmed by Liam Orellana ([id number]) on 12/31/2023 11:30:17 AM Referred By: Confirmed By: Liam Orellana
[2023-12-31] MEDS: WARFARIN SOD 5 MG TAB PO SCH (15:22)
[2023-12-31] MEDS: ACETAMINOPHEN 500 MG TAB PO PRN (20:38)
[2023-12-31] MEDS: ALBUT/IPRATROP 3MG/0.5MG NEB 3 ML VIAL NEB ONE (21:12)
[2024-01-01 06:26] LABS: Basophils # (auto) 0.01 K/uL (0.00-0.20); Basophils % (auto) 0.1 %; Hematocrit (blood only) 40.7 % (42.0-52.0); Hemoglobin 13.1 g/dl (14.0-18.0); Immature Granulocytes # (auto) 0.03 K/uL (0.01-0.20); Immature Granulocytes % (auto) 0.4 %; Lymphocytes # (auto) 0.83 K/uL (1.20-3.40); Lymphocytes % (auto) 11.2 %; Mean Corpuscular Hemoglobin 27.5 pg (25.0-34.0); Mean Corpuscular Hgb Conc 32.2 g/dL (32.0-36.0); Mean Corpuscular Volume 85.5 fL (80.0-100.0); Mean Platelet Volume 9.8 fL (9.4-12.4); Monocytes # (auto) 1.13 K/uL (0.11-0.59); Monocytes % (auto) 15.2 %; Neutrophils # (auto) 5.43 K/uL (1.40-6.50); Neutrophils % (auto) 73.1 %; Platelet Count 203 K/uL (130-400); RDW Coefficient of Variation 14.3 % (11.5-14.5); RDW Standard Deviation 44.8 fL (36.4-46.3); Red Blood Count 4.76 M/uL (4.70-6.10); White Blood Count 7.43 K/ul (4.8-10.8)
[2024-01-01] MEDS: dexAMETHasone 6 MG in SYRINGE 0 ML IV SCH (06:30)
[2024-01-01 06:35] LABS: INR 1.8 (0.9-1.1); Prothrombin Time 18.2 Seconds (9.0-12.0)
[2024-01-01 06:38] LABS: Albumin Level 3.6 gm/dl (3.4-5.0); BUN Creatinine Ratio 23.5 (10-20); C Reactive Protein 8.95 mg/dl (0-0.5); Calcium 9.4 mg/dl (8.6-10.3); Creatinine Clr Calc Pharmacy 90.6 ml/min; Est GFR (African American) 81.8 ml/min; Est GFR (Non-African American) 70.6 ml/min; Magnesium 2.2 mg/dl (1.7-2.4); Phosphorus 3.1 mg/dl (2.5-4.9); Potassium 4.2 mmol/L (3.5-5.1)
[2024-01-01] MEDS: POLYETHYLENE (MIRALAX) 17 GM PACK PO PRN (07:41)
--- NOTE | 2024-01-01 13:31 | Hospitalist Progress Note ---
Date of Service January 01, 2024 Assessment & Plan (1) Generalized weakness: Plan: Generalized weakness/psoriatic arthritis/physical disability with ambulatory dysfunction/morbid obesity/COVID-19- Patient with underlying inflammatory arthritic issues, aggravated by morbid obesity, and more recently now aggravated by COVID 19 infection Likely an element of adrenal insufficiency associated with viral infection as well Give dexamethasone 10 mg IV now, and then 6 mg IV every morning x 10 days CBC reviewed 12/31: stable BMP reviewed 12/31: stable CRP reviewed 12/31: 8.95 PT/OT consulted OT recommending Home therapy, PT consult pending (2) COVID-19: Plan: see plan above (3) Hypertension: Plan: Hold hydrochlorothiazide and potassium chloride Hold Lisinopril currently normotensive (4) Subtherapeutic international normalized ratio (INR): Plan: History of DVT and PE- INR presently subtherapeutic at 1.6 Has a complicated Coumadin dosing schedule Follow serial INR, he typically follows with the Coumadin clinic Plan Chronic conditions: Depression and anxiety/neuropathy/lumbar radiculopathy Continue aripiprazole, duloxetine, gabapentin Admission and Anticipated Discharge Date Admission Date: December 31, 2023 Subjective Patient seen and examined this morning. Patient reports to be feeling better today. patient states he still feels weak. Denies any shortness of breath or chest pain. States he was able to ambulate in his room today. Results & Data Results & Data Vital Signs (Past 12 Hours) Vital Signs Temp Pulse Pulse Resp BP BP Pulse Ox 01/01/24 08:57 36.5 C 59 L 18 116/83 95 01/01/24 08:38 62 01/01/24 07:22 01/01/24 03:33 36.5 C 68 18 108/55 L 93 O2 Del Method 01/01/24 08:57 Room Air 01/01/24 08:38 01/01/24 07:22 Room Air 01/01/24 03:33 Room Air Laboratory Results 01/01/24 05:43 01/01/24 05:43 PG Care Time/CCT Total # of Minutes Spent Total Time Spent with Patient: Total time spent is greater than 50% in coordination of care (as documented) at patient's floor/unit and/or counseling patient: Coding Level of Care Code 60106 SUB INP/OBS CARE 2/35MIN Diagnoses Generalized weakness R53.1 COVID-19 U07.1 Primary hypertension I10 Hypertension type: primary hypertension Subtherapeutic international normalized ratio (INR) R79.1 (3) Hypertension Hypertension type: primary hypertension Qualified Code(s): I10 - Essential (primary) hypertension
[2024-01-02 07:19] LABS: Basophils # (auto) 0.01 K/uL (0.00-0.20); Basophils % (auto) 0.1 %; Hematocrit (blood only) 41.4 % (42.0-52.0); Hemoglobin 12.8 g/dl (14.0-18.0); Immature Granulocytes # (auto) 0.04 K/uL (0.01-0.20); Immature Granulocytes % (auto) 0.5 %; Lymphocytes # (auto) 0.85 K/uL (1.20-3.40); Lymphocytes % (auto) 10.9 %; Mean Corpuscular Hemoglobin 26.8 pg (25.0-34.0); Mean Corpuscular Hgb Conc 30.9 g/dL (32.0-36.0); Mean Corpuscular Volume 86.8 fL (80.0-100.0); Mean Platelet Volume 9.7 fL (9.4-12.4); Monocytes # (auto) 0.72 K/uL (0.11-0.59); Monocytes % (auto) 9.2 %; Neutrophils # (auto) 6.17 K/uL (1.40-6.50); Neutrophils % (auto) 79.3 %; Platelet Count 206 K/uL (130-400); RDW Coefficient of Variation 14.2 % (11.5-14.5); RDW Standard Deviation 45.4 fL (36.4-46.3); Red Blood Count 4.77 M/uL (4.70-6.10); White Blood Count 7.79 K/ul (4.8-10.8)
[2024-01-02 07:31] LABS: Albumin Level 3.6 gm/dl (3.4-5.0); C Reactive Protein 2.97 mg/dl (0-0.5); Calcium 9.3 mg/dl (8.6-10.3); Creatinine Clr Calc Pharmacy 83.3 ml/min; Est GFR (African American) 73.8 ml/min; Est GFR (Non-African American) 63.7 ml/min; Magnesium 2.2 mg/dl (1.7-2.4); Phosphorus 2.7 mg/dl (2.5-4.9); Potassium 4.6 mmol/L (3.5-5.1)
[2024-01-02 07:40] LABS: INR 1.9 (0.9-1.1); Prothrombin Time 19.2 Seconds (9.0-12.0)
--- NOTE | 2024-01-02 17:12 | Hospitalist Progress Note ---
Date of Service January 02, 2024 Assessment & Plan (1) Generalized weakness: Plan: Generalized weakness/psoriatic arthritis/physical disability with ambulatory dysfunction/morbid obesity/COVID-19- Patient with underlying inflammatory arthritic issues, aggravated by morbid obesity, and more recently now aggravated by COVID 19 infection -continue dexamethasone IV - was offered Paxlovid in the outpatient setting, however deferred due to medication interactions CRP downtrending PT/OT consulted - recommending rehab, case management following (2) Hypertension: Plan: stop hydrochlorothiazide and potassium chloride - this was discontinued by outpatient provider. Resume lisinopril for a.m. of 01/02 (3) Subtherapeutic international normalized ratio (INR): Plan: History of DVT and PE- INR presently subtherapeutic at 1.6 on admission, complex dosing schedule follows with Coumadin clinic. INR 1.9 today, and receiving higher dose today, will not adjust AM INR Plan Chronic conditions: Depression and anxiety/neuropathy/lumbar radiculopathy Continue aripiprazole, duloxetine, gabapentin dispo: Continued inpatient stay, awaiting rehab facilities DVT prophylaxis: Home Coumadin Admission and Anticipated Discharge Date Admission Date: December 31, 2023 Supervising Physician Co-Signing Physician Notes PA Supervision Note: I did not personally see or examine the patient today, but I verified all roberto points of NALDO Avilez's assessment and plan with the following exceptions/additions: None Subjective patient seen after lunch. Sitting up in the chair, states that he feels better when he came in but still knows that he is weak. Has not worked with PT at the time of my encounter. Is very frustrated with not being will need to rehab and feels like he has not been himself since August 31. He is having falls at home still. From a COVID standpoint he feels like his breathing is improved, did feel like he was wheezing this morning but does not feel it now. Review of Systems Review of Systems: All systems reviewed & are unremarkable except as noted in Subjective Physical Exam Physical Exam: General: NAD, VS as above Resp: normal respiratory effort, Diminished in the bases, no wheezing CV: RRR, no murmur, Abd: normal bowel sounds, non tender, no hepatosplenomegaly Extremities: Moves all extremities, no edema Neuro: A&O x3, Skin: intact, no lesions noted Results & Data Results & Data Vital Signs (Past 12 Hours) Vital Signs Temp Pulse Resp BP Pulse Ox O2 Del Method 01/02/24 15:30 97.3 F L 51 L 16 164/77 H 97 Room Air 01/02/24 08:05 97.5 F L 55 L 18 134/76 94 Room Air 01/02/24 08:00 Room Air Laboratory Results CBC, chemistry, INR, CRP reviewed PG Care Time/CCT Total # of Minutes Spent Total Time Spent with Patient: Total time spent is greater than 50% in coordination of care (as documented) at patient's floor/unit and/or counseling patient: Coding Level of Care Code 03872 SUB INP/OBS CARE 3/50MIN Diagnoses Generalized weakness R53.1 Primary hypertension I10 Hypertension type: primary hypertension Subtherapeutic international normalized ratio (INR) R79.1 (2) Hypertension Hypertension type: primary hypertension Qualified Code(s): I10 - Essential (primary) hypertension
[2024-01-02] MEDS: WARFARIN SOD 10 MG TAB PO SCH (17:50)
[2024-01-03] MEDS: lisinopril 5 MG TAB PO SCH (08:17)
[2024-01-03 08:26] LABS: Prothrombin Time 20.3 Seconds (9.0-12.0)
--- NOTE | 2024-01-03 14:34 | Hospitalist Progress Note ---
Date of Service January 03, 2024 Assessment & Plan (1) Generalized weakness: Plan: Generalized weakness/psoriatic arthritis/physical disability with ambulatory dysfunction/morbid obesity/COVID-19- Patient with underlying inflammatory arthritic issues, aggravated by morbid obesity, and more recently now aggravated by COVID 19 infection -continue dexamethasone IV - was offered Paxlovid in the outpatient setting, however deferred due to medication interactions CRP downtrending PT/OT consulted - recommending rehab, case management following (2) Hypertension: Plan: stop hydrochlorothiazide and potassium chloride - this was discontinued by outpatient provider. Resume lisinopril for a.m. of 01/02 (3) Subtherapeutic international normalized ratio (INR): Plan: History of DVT and PE- INR presently subtherapeutic at 1.6 on admission, complex dosing schedule follows with Coumadin clinic. INR now 2.0 Plan Chronic conditions: Depression and anxiety/neuropathy/lumbar radiculopathy Continue aripiprazole, duloxetine, gabapentin dispo: Continued inpatient stay, awaiting rehab facilities DVT prophylaxis: Home Coumadin Admission and Anticipated Discharge Date Admission Date: December 31, 2023 Supervising Physician Co-Signing Physician Notes PA Supervision Note: I did not personally see or examine the patient today, but I verified all roberto points of NALDO Avilez's assessment and plan with the following exceptions/additions: None Subjective patient seen during lunch, states that he is feeling alittle better than yesterday but still feeling weak no cough Review of Systems Review of Systems: All systems reviewed & are unremarkable except as noted in Subjective Physical Exam Physical Exam: General: NAD, VS as above Resp: normal respiratory effort, Diminished in the bases, no wheezing CV: RRR, no murmur, Abd: normal bowel sounds, non tender, no hepatosplenomegaly Extremities: Moves all extremities, no edema Neuro: A&O x3, Skin: intact, no lesions noted Results & Data Results & Data Vital Signs (Past 12 Hours) Vital Signs Temp Pulse Resp BP Pulse Ox O2 Del Method 01/03/24 08:15 97.2 F L 52 L 18 165/70 H 96 Room Air 01/03/24 08:00 Room Air Laboratory Results INR reviewed PG Care Time/CCT Total # of Minutes Spent Total Time Spent with Patient: Total time spent is greater than 50% in coordination of care (as documented) at patient's floor/unit and/or counseling patient: Coding Level of Care Code 67787 SUB INP/OBS CARE MIN Diagnoses Generalized weakness R53.1 Primary hypertension I10 Hypertension type: primary hypertension Subtherapeutic international normalized ratio (INR) R79.1 (2) Hypertension Hypertension type: primary hypertension Qualified Code(s): I10 - Essential (primary) hypertension
[2024-01-04 09:55] LABS: INR 2.5 (0.9-1.1); Prothrombin Time 25.3 Seconds (9.0-12.0)
--- NOTE | 2024-01-04 13:44 | Hospitalist Progress Note ---
Date of Service January 04, 2024 Assessment & Plan (1) Generalized weakness: Plan: Generalized weakness/psoriatic arthritis/physical disability with ambulatory dysfunction/morbid obesity/COVID-19- Patient with underlying inflammatory arthritic issues, aggravated by morbid obesity, and more recently now aggravated by COVID 19 infection -continue dexamethasone IV - was offered Paxlovid in the outpatient setting, however deferred due to medication interactions CRP downtrending PT/OT consulted - recommending rehab, case management following - unable to accept at [facility], trying for SNF auth (2) Hypertension: Plan: stop hydrochlorothiazide and potassium chloride - this was discontinued by outpatient provider. Resume lisinopril for a.m. of 01/02 (3) Subtherapeutic international normalized ratio (INR): Plan: History of DVT and PE- INR subtherapeutic at 1.6 on admission, complex dosing schedule follows with Coumadin clinic. INR now 2.5 (without dosing adjustments)-will watch closely in the setting of being on steroids Plan Chronic conditions: Depression and anxiety/neuropathy/lumbar radiculopathy Continue aripiprazole, duloxetine, gabapentin dispo: Continued inpatient stay, awaiting rehab facilities, but medically stable for discharge DVT prophylaxis: Home Coumadin Admission and Anticipated Discharge Date Admission Date: December 31, 2023 Supervising Physician Co-Signing Physician Notes PA Supervision Note: I did not personally see or examine the patient today, but I verified all roberto points of NALDO Avilez's assessment and plan with the following exceptions/additions: None Subjective Patient sitting up in the chair before lunch, feeling well. No acute complaints. Still wanting to get stronger Review of Systems Review of Systems: All systems reviewed & are unremarkable except as noted in Subjective Physical Exam Physical Exam: General: NAD, VS as above Resp: normal respiratory effort, no wheezing CV: RRR, no murmur, Abd: normal bowel sounds, non tender, no hepatosplenomegaly Extremities: Moves all extremities, no edema Neuro: A&O x3, Skin: intact, no lesions noted Results & Data Results & Data Vital Signs (Past 12 Hours) Vital Signs Temp Pulse Resp BP BP Pulse Ox O2 Del Method 01/04/24 08:39 Room Air 01/04/24 08:20 97.2 F L 47 L 16 176/77 H 177/83 H 97 Room Air Laboratory Results INR reviewed PG Care Time/CCT Total # of Minutes Spent Total Time Spent with Patient: Total time spent is greater than 50% in coordination of care (as documented) at patient's floor/unit and/or counseling patient: Coding Level of Care Code 48381 SUB INP/OBS CARE 2/35MIN Diagnoses Generalized weakness R53.1 Primary hypertension I10 Hypertension type: primary hypertension Subtherapeutic international normalized ratio (INR) R79.1 (2) Hypertension Hypertension type: primary hypertension Qualified Code(s): I10 - Essential (primary) hypertension
[2024-01-05 07:51] VITALS: BP 135/73; PULSE 71; RESP 18; TEMP 97.3; O2SAT 97
[2024-01-05 08:39] LABS: Prothrombin Time 29.7 Seconds (9.0-12.0)
--- NOTE | 2024-01-05 11:02 | Discharge Summary ---
Discharge Summary Date of Service January 05, 2024 Principal Dx & Hospital Course #1 = Principal Diagnosis (1) Generalized weakness: Generalized weakness/psoriatic arthritis/physical disability with ambulatory dysfunction/morbid obesity/COVID-19- Patient with underlying inflammatory arthritic issues, aggravated by morbid obesity, and more recently now aggravated by COVID 19 infection -received dexamethasone. Stable on room air, not continued on discharge to improve INR control. - was offered Paxlovid in the outpatient setting, however deferred due to medication interactions CRP downtrending PT/OT consulted - recommending rehab however patient was doing to well and denied from [facility]. Opted for home with home therpay (2) Hypertension: stop hydrochlorothiazide and potassium chloride - this was discontinued by outpatient provider, med rec updated. Continue lisinopril (3) Subtherapeutic international normalized ratio (INR): History of DVT and PE- INR subtherapeutic at 1.6 on admission, complex dosing schedule follows with Coumadin clinic. INR now 3.0 (likely rising d/t steroids) - given reduced dose 2.5mg on 01/04 prior to discharge - continue home regimen with Coumadin clinic appointment next week Plan Chronic conditions: Depression and anxiety/neuropathy/lumbar radiculopathy Continue aripiprazole, duloxetine, gabapentin dispo: home with home health today Notes For Next Care Provider coumadin clinic visit next week Medication Changes From Visit none Admission HPI Per Admitting Provider The patient is a 78-year-old male with a past medical history included hypertension, diabetic foot ulcer, PAD, lumbar radiculopathy, ambulatory dysfunction, morbid obesity, psoriasis, fatty liver, chronic venous insufficiency, chronic diarrhea, peripheral neuropathy, inflammatory polyarthritis, and GERD. He presents to the emergency department with symptoms as noted above, having tested positive for COVID at the acute care clinic, and reports inability to take care of himself at home, and family unable to help to the extent that he needs. Discharge Exam General: NAD, VS as above Resp: normal respiratory effort, no wheezing CV: RRR, no murmur, Abd: normal bowel sounds, non tender, no hepatosplenomegaly Extremities: Moves all extremities, no edema Neuro: A&O x3, Skin: intact, no lesions noted Discharge Plan Discharge Items Patient Disposition: Home - Home Health Services Reason For Visit: COVID INFECTION,SEVERE FATIGUE + GENERALIZED WEAKN Discharge Diagnosis: COVID Activity: Resume your previous activity Weightbearing: Full weightbearing Non-emergency contact: Primary Care Provider Call non-emergency contact if: you have any medication questions, your symptoms worsen and your temperature is above 101 Follow-up/Referrals: Joycelyn Dasilva MD, PhD [Pathologist] - (Follow up with coumadin clinic ) Henry Prieto DO [Primary Care Provider] - (Follow up within 7-10 days ) Diet: Heart Healthy Addtl Attending Provider Instructions: Mr. Elias, You were hospitalized after weakness from COVID infection. Thankfully, your lungs have handled this well and you have remained stable on room air for many days. You came in weak from the virus but have been able to build up your strength while you were here. I would encourage you to keep doing exercises on a regular basis. Also make sure you are getting a full night's rest to help with your strength and overall body function. It is also important that you are eating well balanced meals, with protein to maintain body energy. Your INR was 3.0 on the day of discharge and likely judy because you were on steroid. You no longer are on steroid therapy, but we gave you a reduced dose on 01/04. You should continue your normal schedule starting friday 01/05. (5mg SuTuWThSa, 10mg MoFr). Follow up with the coumadin clinic next week. I think you are doing very well and if you keep up on your exercises think you can get back to where you were before August. Keep up the good work! No changes to your home medications, your hydrochlorothiazide and potassium supplementation was stopped by your PCP and you do NOT Need to be taking this. Follow up with your PCP in the next 7-10 days. Take Care! Clara Avilez PA-C Pending Studies at Discharge: No Stand-Alone Forms: My [employer], Smoking Cessation Medications and DC Order Prescriptions: Continued Cosentyx Pen (2 Pens) 150 mg/mL pen injector 300 mg subcut .COMPLEX Qty: 6 3RF Rx Instructions: 300 mg every 4 weeks (on Tue') for maintenance as directed. duloxetine 60 mg capsule,delayed release(DR/EC) 60 mg PO QAM Qty: 90 3RF aripiprazole [Abilify] 5 mg tablet 5 mg PO QAM Qty: 30 1RF Rx Instructions: for depression lisinopril 5 mg tablet 5 mg PO DAILY Qty: 30 5RF gabapentin 300 mg capsule 300 mg PO TID Qty: 90 5RF warfarin 5 mg tablet See Rx Instructions PO UD Qty: 40 2RF Rx Instructions: 10mg q Mondays and Fridays, 5mg x 5 days per [facility] orally use as directed; pantoprazole 40 mg tablet,delayed release (DR/EC) 40 mg PO BID Qty: 90 3RF (DME) Shower Chair Misc See Rx Instructions .Route Qty: 1 0RF Rx Instructions: As directed (DME) Ultra-Light Rollator Misc See Rx Instructions .Route Qty: 1 0RF Rx Instructions: As directed alfuzosin 10 mg tablet extended release 24 hr 10 mg PO DAILY Qty: 30 2RF Rx Instructions: administer after the same meal each day cholecalciferol (vitamin D3) 50 mcg (2,000 unit) capsule 50 mcg PO DAILY cyanocobalamin (vitamin B-12) 1,000 mcg tablet 1,000 mcg PO DAILY loratadine 10 mg tablet 10 mg PO DAILY PRN (Reason: Allergy Symptoms) polyethylene glycol 3350 [Miralax] 17 gram powder in packet 17 g PO DAILY PRN (Reason: Constipation) Rx Instructions: purchase [id number] multivitamin with minerals Capsule 1 cap PO DAILY nystatin 100,000 unit/gram cream 1 applic TOPICAL BID PRN (Reason: Rash) ondansetron HCl 4 mg tablet 4 mg PO DIRECTED PRN (Reason: Nausea) Discharge Orders: Discharge Order (Routine); Ordered 01/05/24 Ordered By: Clara Ball/Other Patient Handouts: COVID-19 Vaccines and Prevention Admission Data Admit Date/Time: 12/31/23 03:00 Attending Provider: Sri Calderon Admit Provider: Yaw Cardenas Primary Care Provider: Henry Prieto Other Providers: Yaw Cardenas; [facility]; [facility]; [facility]; [facility] Fax Other Interventions: Discharge Summary Assessment (RN) Last Done: 01/05/24 12:49 Hospital Stay Data Consultations 12/31/23 01:48 ED Decision to Admit Stat Diagnostic Imagining Performed Chest X-Ray 12/30/23 21:48 XR chest 1V not portable HISTORY: 78 years-old Male cough, COVID + COMPARISON: 12/12/2023 TECHNIQUE: AP view of the chest FINDINGS: Lung volumes are normal. Lungs are clear. There is no pneumothorax or pleural effusion. Cardiac size is stable. Mediastinal contours are normal. There is no evidence for pulmonary edema. IMPRESSION: No acute cardiopulmonary findings. ACT 112: Negative or not required by law. The above report was generated using voice recognition software. It may contain grammatical, syntax or spelling errors. Electronically signed by: Steven Thomas M.D. 12/31/2023 7:43 AM Pending Results Patient Have Any Pending Studies at Discharge: No Discharge Instructions Given to Patient (Per Discharging Provider) Mr. Elias, Berny were hospitalized after weakness from COVID infection. Thankfully, your lungs have handled this well and you have remained stable on room air for many days. You came in weak from the virus but have been able to build up your strength while you were here. I would encourage you to keep doing exercises on a regular basis. Also make sure you are getting a full night's rest to help with your strength and overall body function. It is also important that you are eating well balanced meals, with protein to maintain body energy. Your INR was 3.0 on the day of discharge and likely judy because you were on steroid. You no longer are on steroid therapy, but we gave you a reduced dose on 01/04. You should continue your normal schedule starting friday 01/05. (5mg SuTuWThSa, 10mg MoFr). Follow up with the coumadin clinic next week. I think you are doing very well and if you keep up on your exercises think you can get back to where you were before August. Keep up the good work! No changes to your home medications, your hydrochlorothiazide and potassium supplementation was stopped by your PCP and you do NOT Need to be taking this. Follow up with your PCP in the next 7-10 days. Take Care! Clara Avilez PA-C Supervising Physician Co-Signing Physician Notes PA Supervision Note: I did not personally see or examine the patient today, but I verified all roberto points of NALDO Avilez's assessment and plan with the following exceptions/additions: None Total Time Total Time Spent Total Time Spent (In Minutes): Time spent day of discharge 32 minutes including direct patient care, medication reconciliation, documentation, review of labs and images, and coordination of care. Coding Level of Care Code 69438 INP/OBS DISCH >30 MIN Diagnoses Generalized weakness R53.1 Primary hypertension I10 Hypertension type: primary hypertension Subtherapeutic international normalized ratio (INR) R79.1
[2024-01-05] MEDS ORDERED: Nursing to Pharmacy Communication SCH (12:30)
[2024-01-05] MEDS: WARFARIN SOD 2.5 MG TAB PO STA (12:57)
[2024-01-05] MEDS ORDERED: WARFARIN SOD 2.5 MG TAB PO SCH (16:00)
== END 2024-01-05 13:30 | disposition home health service (06) | DRG 178 ==
LOC: ED 21:29 → SUATTDRO 12-31 03:00 → 2N 12-31 03:00 → 3W 01-01 16:48

== ENCOUNTER 2024-05-30 15:53 | Observation (INO) ==
[2024-05-30 16:04] VITALS: TEMP 98.4
[2024-05-30 16:57] LABS: Basophils # (auto) 0.01 K/uL (0.00-0.20); Basophils % (auto) 0.1 %; Eosinophils # (auto) 0.08 K/uL (0.00-0.50); Eosinophils % (auto) 1.1 %; Hematocrit (blood only) 47.5 % (42.0-52.0); Hemoglobin 14.9 g/dl (14.0-18.0); Immature Granulocytes # (auto) 0.02 K/uL (0.01-0.20); Immature Granulocytes % (auto) 0.3 %; Lymphocytes # (auto) 0.48 K/uL (1.20-3.40); Lymphocytes % (auto) 6.5 %; Mean Corpuscular Hemoglobin 26.4 pg (25.0-34.0); Mean Corpuscular Hgb Conc 31.4 g/dL (32.0-36.0); Mean Corpuscular Volume 84.2 fL (80.0-100.0); Mean Platelet Volume 10.1 fL (9.4-12.4); Monocytes # (auto) 0.41 K/uL (0.11-0.59); Monocytes % (auto) 5.5 %; Neutrophils % (auto) 86.5 %; Platelet Count 183 K/uL (130-400); RDW Coefficient of Variation 14.5 % (11.5-14.5); RDW Standard Deviation 44.2 fL (36.4-46.3); Red Blood Count 5.64 M/uL (4.70-6.10)
[2024-05-30 17:10] LABS: Albumin Globulin Ratio 1.2 (0.9-2); Albumin Level 3.9 gm/dl (3.4-5.0); BUN Creatinine Ratio 16.1 (10-20); Bilirubin,Total 0.4 mg/dl (0.2-1.0); Calcium 9.1 mg/dl (8.6-10.3); Creatinine Clr Calc Pharmacy 83.7 ml/min; Globulin 3.3 gm/dl (2.5-4.0); Potassium 4.1 mmol/L (3.5-5.1); Total Protein 7.2 gm/dl (6.0-8.3)
[2024-05-30 17:22] LABS: Influenza A virus by PCR Negative (Neg); Influenza B virus by PCR Negative (Neg); RSV by PCR Negative (Neg); SARS CoV2 RNA(COVID-19) Ceph NEGATIVE (Negative)
[2024-05-30 17:52] LABS: Magnesium 1.8 mg/dl (1.7-2.4)
[2024-05-30] MEDS: OPTIRAY 320 125ml IV ONE (18:14)
--- NOTE | 2024-05-30 18:43 | CT Scan Report ---
EXAMINATION: Abdomen and pelvis CT with CLINICAL HISTORY: Constant nausea vomiting diarrhea since last night, getting weaker, dry, sick contacts. PRIORS: 11/18/2023 TECHNIQUE: Contiguous axial images were obtained through the abdomen and pelvis with the use of intravenous contrast. Sagittal and coronal reformations are supplied. FINDINGS: Mild hypoventilatory changes at the lung bases. Large body habitus noted. Fatty infiltration of the liver present. The gallbladder is absent. Kidneys are unchanged in appearance. Postsurgical change of the stomach noted with skin joelle present. Subtle localized high attenuation present within the stomach lumen, adjacent to the skin joelle noted on image 78, series 3, with small amount of layering high density material noted on image 96, series 3. No extraluminal gas. No hemoperitoneum. Prostate not enlarged. Urinary bladder distends normally. Liquid contents noted in the sigmoid colon. No bowel obstruction. No ascites. No adenopathy. In bone windows, moderate osseous demineralization noted with no acute abnormality. IMPRESSION: 1. Postsurgical change of the stomach with small region of hyperdensity in the lumen adjacent to the suture. Focal hemorrhage/extravasation is a possibility, in the setting of persistent vomiting. If appropriate, and clinical concern warrants, GI and/or surgical consultation suggested. ACT 112: Positive. There are findings on this examination that require communication between the performing entity and the patient following Patient Test Result Information Act ([place] ACT 112) guidelines. Electronically signed by Stephanie Saenz 05-30-2024 6:43 PM
[2024-05-30 19:15] LABS: Appearance Urine Clear (Clear); Bacteria Urine Automated None Seen (None Seen); Bilirubin Urine Negative (Negative); Blood Urine Negative (Negative); Cast Urine Automated 0-2 /lpf (0-2); Color Urine Yellow; Epithelial Cell Urine Auto 0-2 /hpf (0-2); Glucose Urine UA Negative (Negative); Ketones Urine Trace (Negative); Leukocyte Esterase Urine Negative (Negative); Nitrite Urine Negative (Negative); Protein Urine Trace (Negative); RBC Urine Automated 0-2 /hpf (0-2); Specific Gravity Urine 1.042 (1.000-1.030); Urobilinogen Urine Negative (Negative); WBC Urine Automated 0-5 /hpf (0-5)
[2024-05-30 19:24] LABS: INR 2.1 (0.9-1.1); Partial Thromboplastin Ratio 1.2; Partial Thromboplastin Time 33 Seconds (21-31); Prothrombin Time 21.1 Seconds (9.0-12.0)
[2024-05-30] MEDS: ONDANSETRON INJ 2 MG/ML 2 ML VIAL IV STA (20:11)
[2024-05-30] MEDS: SODIUM CHLORIDE 0.9% 1,000 ML IV SCH (20:17)
--- NOTE | 2024-05-30 21:12 | Emergency Department Note ---
History of Present Illness General Chief complaint: Illness Stated complaint: ILLNESS, NAUSA, VOMITING Time Seen by Provider: 05/30/24 16:10 History of Present Illness Provider Complaint: + nausea, + vomiting, + diarrhea and + abdominal pain Onset (ago): day(s) 1 Description of Vomiting: no bilious, no blood-streaked, no bloody or no coffee grounds Description of Diarrhea: no tarry, no blood-streaked or no bloody (bright red) Associated Abdominal Pain: Yes Location of pain: + diffuse Severity: moderate Maximum Pain Intensity: 8 Quality: + cramping Pain Consistency: + intermittent Relieved By: + none Exacerbated By: + bowel movement and + vomiting Context: no foreign travel, no recent antibiotic use, no trauma, no caffeine, no smoking or no marijuana use Associated symptoms: + chest pain; no cough, no fever/chills, no headaches, no dysuria or no decreased urine output Home Medications Medication Instructions Recorded Confirmed Type secukinumab 150 mg/mL subcutaneous 300 mg (2 mL) subcut .COMPLEX #6 mL 03/22/22 05/30/24 Rx pen injector (Cosentyx Pen 300 mg/2 Pens () Shower Chair #1 ea 10/04/22 05/24/24 Rx walker (Ultra-Light Rollator misc) #1 ea 10/04/22 05/24/24 Rx duloxetine 60 mg capsule,delayed 60 mg PO QAM #90 caps 08/30/23 05/30/24 Rx release cholecalciferol (vitamin D3) 50 50 mcg PO DAILY 09/09/23 05/30/24 History mcg (2,000 unit) capsule cyanocobalamin (vitamin B-12) 1,000 mcg PO DAILY 09/09/23 05/30/24 History 1,000 mcg tablet loratadine 10 mg tablet 10 mg PO DAILY PRN Allergy Symptoms 09/09/23 05/30/24 History multivitamin with minerals 1 cap PO DAILY 09/10/23 05/30/24 History polyethylene glycol 3350 17 gram 17 g PO DAILY PRN Constipation 09/21/23 05/30/24 History oral powder packet (Miralax) pantoprazole 40 mg tablet,delayed 40 mg PO DAILY 01/17/24 05/30/24 History release aripiprazole 5 mg tablet (Abilify) 5 mg PO QAM #90 tabs 03/01/24 05/30/24 Rx alfuzosin 10 mg tablet,extended 10 mg PO DAILY #30 tabs 04/20/24 05/30/24 Rx release 24 hr lisinopril 5 mg tablet 5 mg PO DAILY #30 tabs 05/16/24 05/30/24 Rx gabapentin 300 mg capsule 300 mg PO TID #90 caps 05/30/24 05/30/24 Rx warfarin 5 mg tablet 5 mg PO [id number] 05/30/24 05/30/24 History warfarin 5 mg tablet 7.5 mg PO WK 05/30/24 05/30/24 History Allergies Allergy/AdvReac Type Severity Reaction Status Date / Time amoxicillin Allergy Intermediate rash Verified 05/30/24 20:26 Penicillins Allergy Intermediate rash Verified 05/30/24 20:26 Past Med/Surg History Problem List (Updated 05/30/24 @ 21:12 by Gordon Garcia MD) Nausea & vomiting (Acute) Weakness (Acute) Open wound of toe (Acute) Venous ulcer of left leg (Acute) Venous ulcer of right leg (Acute) Abnormal ankle brachial index (Acute) Constipation Confusion Lumbar radiculopathy, right Hypokalemia Verbal abuse of adult (Acute) Cellulitis of right leg Chest pain (Acute) Erectile dysfunction Increased urinary frequency Arthritis Morbid obesity (Chronic) BMI 45.8% Fatty infiltration of liver Chronic diarrhea Medical History Psoriatic arthritis Lumbar radiculopathy Physical debility Sacroiliitis Chronic venous insufficiency as of 01/04/23, currently has wounds on bilateral legs>going to wound care at [facility] Psoriasis Hypertension Venous stasis ulcers of both lower extremities 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 of 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 Degenerative arthritis of knee, bilateral Depression Sleep apnea Restarted CPAP BPH loc w urin obs/LUTS Major depressive disorder, recurrent episode, moderate with anxious distress Diabetes mellitus type 2 in obese Hx of deep venous thrombosis RIGHT CALF ~4-5 YRS AGO, COUMADIN DAILY GERD (gastroesophageal reflux disease) Hx pulmonary embolism (~2015) ~14 YRS AGO- NO ISSUES SINCE Pre-procedural laboratory examination Depression Lumbago Hx of pancreatitis Generalized osteoarthritis Anemia Completed EGD/Colonoscopy 2021, Iron Replacement Hiatal hernia Osteoarthritis Scoliosis History of kidney stones History of colitis Diabetes mellitus, type 2 diet controlled Hearing deficit Macular degeneration Traumatic open wound of left lower leg hit thompson on recliner causing a hematoma that started bleeding, was seen and treated at [facility] 07/15/22>healed currently Lymphedema Lumbar spondylosis Metabolic syndrome SNHL (sensorineural hearing loss) Asthma Benign esophageal stricture hx-resolved Surgical History History of esophagogastroduodenoscopy (EGD) (~06/2021) History of colonoscopy History of tooth extraction all teeth removed History of bilateral cataract extraction History of cardiac cath roughly 9yrs ago @ [facility]--no stents; no cardio. S/P tonsillectomy S/P hernia repair incisional hernia S/P gastroplasty 36 years ago>currently being seen to have this procedure corrected in a few months. S/P cholecystectomy Family History Family/Other Hearing loss Paternal cousins Mother Heart disease Hypertension Family history of reaction to anesthesia difficulty waking after surgery Other Myocardial infarction No family history of bleeding disorder Prostate cancer Denies family history of Ovarian cancer Breast cancer Colorectal cancer Social History Smoking Status: Former smoker Tobacco Type: Cigarettes Age Started Using Tobacco: 16; Age Quit Using Tobacco: 30; packs per day: 1; Cigarettes Per Day: QUIT ~45 YRS AGO; Second Hand Exposure: No (hx); Do You Dip or Chew Tobacco: No; Hx Alcohol Use: No Hx Substance Use: No Preferred Language: Latvian Communication Ability: Effective Visual Impairment: Limited Hearing Ability: Use of Hearing Aid Career 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 Required: No Beliefs That Will Affect Care: None marital status: Current Living Situation: Spouse Current Living Situation Comment: Room mates current occupational status: retired How many Children do You have: 1 Feels Safe at Home: Yes Childhood Exposure to Second-Hand Smoke: Yes Diet: regular caffeine: No Dental Care, Regularly: No Physical Activity Frequency: Does not Exercise Seatbelt Use: always Sunscreen Use: Yes Assistive Devices: Cane, Denture - Upper, Denture - Lower, Glasses and Hearing Aid - Bilateral Physical Exam 2 Vital Signs: Vital Signs - 24 hr 05/30/24 15:57 05/30/24 15:58 05/30/24 16:19 Temperature 36.9 C 36.9 C Temperature Source Oral Oral Pulse Rate 121 H 121 H Pulse Rate [Apical ] 121 H Respiratory Rate 20 20 Respiratory Effort / Characteristics Non-Labored Sponta neous Respiratory Depth Normal Blood Pressure 135/77 Blood Pressure [Le ft Arm] 135/77 Blood Pressure Gin n 96 Blood Pressure Gin n [Left Arm] 96 Pulse Oximetry 93 93 Oxygen Delivery Me thod Room Air Room Air Oxygen Flow Rate Sepsis Recent Feve r Within 48 Hours No Sepsis New/Unexpla ined Change in Men oly Status No Sepsis Action Take n by Nursing No Action Required Oxygen Flow Rate - Titration Pulse Oximetry Pos t Tiitration 05/30/24 17:57 05/30/24 19:00 05/30/24 20:17 Temperature Temperature Source Pulse Rate 101 H Pulse Rate [Apical ] 105 H 108 H Respiratory Rate 24 18 Respiratory Effort / Characteristics Non-Labored Sponta neous Non-Labored Sponta neous Respiratory Depth Normal Normal Blood Pressure Blood Pressure [Le ft Arm] 155/85 H 138/73 Blood Pressure Gin n Blood Pressure Gin n [Left Arm] 108 94 Pulse Oximetry 94 95 Oxygen Delivery Me thod Room Air Room Air Oxygen Flow Rate Sepsis Recent Feve r Within 48 Hours Sepsis New/Unexpla ined Change in Men oly Status Sepsis Action Take n by Nursing Oxygen Flow Rate - Titration Pulse Oximetry Pos t Tiitration 05/30/24 20:31 Temperature Temperature Source Pulse Rate Pulse Rate [Apical ] Respiratory Rate Respiratory Effort / Characteristics Respiratory Depth Blood Pressure Blood Pressure [Le ft Arm] Blood Pressure Gin n Blood Pressure Gin n [Left Arm] Pulse Oximetry 88 L Oxygen Delivery Me thod Room Air Oxygen Flow Rate 0 Sepsis Recent Feve r Within 48 Hours Sepsis New/Unexpla ined Change in Men oly Status Sepsis Action Take n by Nursing Oxygen Flow Rate - Titration 2 Pulse Oximetry Pos t Tiitration 97 Physical Exam: Physical Exam GENERAL: oriented to person, place, and time. appears well-developed and well- nourished. She does not appear distressed. HENT: Exam performed. -Head: Normocephalic and atraumatic. -Right Ear: External ear normal. No mastoid erythema -Left Ear: External ear normal. No mastoid erythema -Mouth/Throat: The oropharynx is clear and moist. No trismus in the jaw. No dental abscesses or uvula swelling. No oropharyngeal exudate or tonsillar abscesses. EYES: Conjunctivae and EOM are normal.Right eye exhibits no discharge. Left eye exhibits no discharge. No scleral icterus. NECK: Normal range of motion. Neck supple. No JVD present. No tracheal deviation and normal range of motion present. CV: Normal rate, regular rhythm, normal heart sounds and intact distal pulses. There is no peripheral edema. Palpable radial pulses bue. PULM/CHEST: Effort normal and breath sounds normal. No respiratory distress. No stridor. no wheezes.no rales. -Chest Wall: no tenderness to palpation ABD: The abdomen is soft and morbidly obese. no distension. No mass is present. There is diffuse tenderness to palpation. There is no rebound, no guarding MUSC/SKEL: Normal range of motion. There is no peripheral edema, tenderness or deformity. NEURO: Motor and sensation grossly intact. SKIN: Skin is warm and dry. not diaphoretic. PSYCH: normal mood and affect. Behavior is normal. Judgment and thought content normal. Course Course 1610: The patient was evaluated in room B9. A complete history and physical exam was performed Cardiac monitoring: An order was placed for continuous cardiac monitoring. The monitor shows a rate of 100 with sinus rhythm interpreted by me 1908: Vital signs stable. Labs unremarkable. Coagulation studies pending. CT of the abdomen pelvis shows postsurgical changes of the stomach with small region of hyperdensity in the lumen adjacent to the suture. Focal hemorrhage/extravasation is possibility in the setting of persistent vomiting if appropriate clinical concern warrants GI and/or surgical consult were suggested. Patient denies any hematemesis coffee-ground emesis hematochezia or melena. Patient has had no episodes of melena hematochezia hematemesis or coffee-ground emesis in the emergency department. Discussed the case with on-call GI Dr. Reece, we both feel the patient should be observed overnight and he states he can see him in the morning to determine if the patient needs to be scoped. Patient will be admitted to the [facility] team. Administered Medications Sodium Chloride (Nss) 1,000 mls @ 125 mls/hr IV .Q8H LEV Stop: 05/31/24 19:59 Last Admin: 05/30/24 20:17 Dose: 125 mls/hr Documented By: KIRSTEN Discontinued Medications Ioversol (Optiray 320 125ml) 115 ml IV ONCE ONE Stop: 05/30/24 18:15 Last Admin: 05/30/24 18:14 Dose: 115 ml Documented By: TASHA Ondansetron HCl (Ondansetron Inj 2 Mg/Ml 2 Ml Vial) 4 mg IV NOW STA Stop: 05/30/24 19:53 Last Admin: 05/30/24 20:11 Dose: 4 mg Documented By: KIRSTEN Medical Decision Making Laboratory Data Attestation: I reviewed the patient's lab results. 05/30/24 16:04 05/30/24 16:04 Lab Results 05/30/24 05/30/24 Range/Units 16:04 18:52 WBC 7.40 (4.8-10.8) K/ul RBC 5.64 (4.70-6.10) M/uL Hgb 14.9 (14.0-18.0) g/dl Hct 47.5 (42.0-52.0) % MCV 84.2 (80.0-100.0) fL MCH 26.4 (25.0-34.0) pg MCHC 31.4 L (32.0-36.0) g/dL RDW Std Deviation 44.2 (36.4-46.3) fL RDW Coeff of Monique 14.5 (11.5-14.5) % Plt Count 183 (130-400) K/uL MPV 10.1 (9.4-12.4) fL Immature Gran % (Auto) 0.3 % Neut % (Auto) 86.5 % Lymph % (Auto) 6.5 % Thurston % (Auto) 5.5 % Eos % (Auto) 1.1 % Baso % (Auto) 0.1 % Neut # (Auto) 6.40 (1.40-6.50) K/uL Lymph # (Auto) 0.48 L (1.20-3.40) K/uL Thurston # (Auto) 0.41 (0.11-0.59) K/uL Eos # (Auto) 0.08 (0.00-0.50) K/uL Baso # (Auto) 0.01 (0.00-0.20) K/uL Immature Gran # (Auto) 0.02 (0.01-0.20) K/uL PT 21.1 H (9.0-12.0) Seconds INR 2.1 H (0.9-1.1) APTT 33 H (21-31) Seconds PTT Ratio 1.2 Sodium 140 (136-145) mmol/L Potassium 4.1 (3.5-5.1) mmol/L Chloride 105 (98-107) mmol/L Carbon Dioxide 27 (21-32) mmol/L Anion Gap 8 (3-11) BUN 18 (6-23) mg/dl Creatinine 1.12 (0.6-1.4) mg/dl Est Cr Clr Drug Dosing 83.7 ml/min eGFR 67.66 BUN/Creatinine Ratio 16.1 (10-20) Glucose 150 H (70-99(Fasting)) mg/dl Calcium 9.1 (8.6-10.3) mg/dl Magnesium 1.8 (1.7-2.4) mg/dl Total Bilirubin 0.4 (0.2-1.0) mg/dl AST 23 (13-39) U/L ALT 17 (7-52) U/L Alkaline Phosphatase 119 H (34-104) U/L Troponin I High Sens 6.0 (0-20) pg/ml Total Protein 7.2 (6.0-8.3) gm/dl Albumin 3.9 (3.4-5.0) gm/dl Globulin 3.3 (2.5-4.0) gm/dl Albumin/Globulin Ratio 1.2 (0.9-2) Lipase 16 (11-82) U/L Urine Color Yellow Urine Appearance Clear (Clear) Urine pH 6.0 (4.5-7.5) Ur Specific Cunningham 1.042 H (1.000-1.030) Urine Protein Trace H (Negative) Urine Glucose (UA) Negative (Negative) Urine Ketones Trace H (Negative) Urine Blood Negative (Negative) Urine Nitrite Negative (Negative) Urine Bilirubin Negative (Negative) Urine Urobilinogen Negative (Negative) Ur Leukocyte Esterase Negative (Negative) Urine WBC (Auto) 0-5 (0-5) /hpf Urine RBC (Auto) 0-2 (0-2) /hpf U Hyaline Cast (Auto) 0-2 (0-2) /lpf U Epithel Cells (Auto) 0-2 (0-2) /hpf Urine Bacteria (Auto) None Seen (None Seen) SARS-CoV-2 (PCR) NEGATIVE (Negative) Influenza Type A (PCR) Negative (Neg) Influenza Type B (PCR) Negative (Neg) RSV (RT-PCR) Negative (Neg) Imaging Data Radiologist's Impression: Abdomen/Pelvis CT 05/30/24 17:30 EXAMINATION: Abdomen and pelvis CT with CLINICAL HISTORY: Constant nausea vomiting diarrhea since last night, getting weaker, dry, sick contacts. PRIORS: 11/18/2023 TECHNIQUE: Contiguous axial images were obtained through the abdomen and pelvis with the use of intravenous contrast. Sagittal and coronal reformations are supplied. FINDINGS: Mild hypoventilatory changes at the lung bases. Large body habitus noted. Fatty infiltration of the liver present. The gallbladder is absent. Kidneys are unchanged in appearance. Postsurgical change of the stomach noted with skin joelle present. Subtle localized high attenuation present within the stomach lumen, adjacent to the skin joelle noted on image 78, series 3, with small amount of layering high density material noted on image 96, series 3. No extraluminal gas. No hemoperitoneum. Prostate not enlarged. Urinary bladder distends normally. Liquid contents noted in the sigmoid colon. No bowel obstruction. No ascites. No adenopathy. In bone windows, moderate osseous demineralization noted with no acute abnormality. IMPRESSION: 1. Postsurgical change of the stomach with small region of hyperdensity in the lumen adjacent to the suture. Focal hemorrhage/extravasation is a possibility, in the setting of persistent vomiting. If appropriate, and clinical concern warrants, GI and/or surgical consultation suggested. ACT 112: Positive. There are findings on this examination that require communication between the performing entity and the patient following Patient Test Result Information Act ([place] ACT 112) guidelines. Electronically signed by Stephanie Saenz 05-30-2024 6:43 PM ECG Data Attestation: I personally reviewed and interpreted this ECG as follows: Additional Comments: EKG #1 at 1607: Sinus tachycardia with rate 119. PA 196 QRS [address] elevation or ST depression. EKG #2 at 1950: Sinus tachycardia with rate of 101. PA 202 QRS [address] elevation or ST depression. First-degree AV block present. [facility] Narrative 1610: The patient was evaluated in room B9. A complete history and physical exam was performed Cardiac monitoring: An order was placed for continuous cardiac monitoring. The monitor shows a rate of 100 with sinus rhythm interpreted by me 1908: Vital signs stable. Labs unremarkable. Coagulation studies pending. CT of the abdomen pelvis shows postsurgical changes of the stomach with small region of hyperdensity in the lumen adjacent to the suture. Focal hemorrhage/extravasation is possibility in the setting of persistent vomiting if appropriate clinical concern warrants GI and/or surgical consult were suggested. Patient denies any hematemesis coffee-ground emesis hematochezia or melena. Patient has had no episodes of melena hematochezia hematemesis or coffee-ground emesis in the emergency department. Discussed the case with on-call GI Dr. Reece, we both feel the patient should be observed overnight and he states he can see him in the morning to determine if the patient needs to be scoped. Patient will be admitted to the [facility] hospitalist team. Impression & Plan Nausea & vomiting Discharge Plan Visit Data Chief Complaint: Illness Stated Complaint: ILLNESS, NAUSA, VOMITING ED Provider: Gordon Garcia Discharge Problem: Nausea & vomiting Patient Disposition: Being Evaluated by Hospitalist Forms Stand Alone Forms: [facility] Prescriptions Prescriptions: No Action pantoprazole 40 mg tablet,delayed release (DR/EC) 40 mg PO DAILY Cosentyx Pen (2 Pens) 150 mg/mL pen injector 300 mg subcut .COMPLEX Qty: 6 3RF Rx Instructions: 300 mg every 4 weeks (on Tue') for maintenance as directed duloxetine 60 mg capsule,delayed release(DR/EC) 60 mg PO QAM Qty: 90 3RF aripiprazole [Abilify] 5 mg tablet 5 mg PO QAM Qty: 90 1RF Rx Instructions: for depression alfuzosin 10 mg tablet extended release 24 hr 10 mg PO DAILY Qty: 30 2RF Rx Instructions: administer after the same meal each day lisinopril 5 mg tablet 5 mg PO DAILY Qty: 30 5RF gabapentin 300 mg capsule 300 mg PO TID Qty: 90 5RF (DME) Shower Chair Misc See Rx Instructions .Route Qty: 1 0RF Rx Instructions: As directed (DME) Ultra-Light Rollator Misc See Rx Instructions .Route Qty: 1 0RF Rx Instructions: As directed cholecalciferol (vitamin D3) 50 mcg (2,000 unit) capsule 50 mcg PO DAILY cyanocobalamin (vitamin B-12) 1,000 mcg tablet 1,000 mcg PO DAILY loratadine 10 mg tablet 10 mg PO DAILY PRN (Reason: Allergy Symptoms) polyethylene glycol 3350 [Miralax] 17 gram powder in packet 17 g PO DAILY PRN (Reason: Constipation) Rx Instructions: purchase [id number] multivitamin with minerals Capsule 1 cap PO DAILY warfarin 5 mg tablet 5 mg PO [id number] Rx Instructions: TAKE 5MG EVERY TUESDAY/TUESDAY/TUESDAY/TUESDAY/TUESDAY/TUESDAY. warfarin 5 mg tablet 7.5 mg PO WK Rx Instructions: TAKE 1 & 1/2 TAB EVERY TUESDAY Referrals Referrals: Henry Prieto DO [Primary Care Provider] -
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
[2024-05-30] MEDS ORDERED: ONDANSETRON INJ 2 MG/ML 2 ML VIAL IV PRN (22:49)
[2024-05-30] MEDS ORDERED: ACETAMINOPHEN 325 MG TAB PO PRN (22:49)
[2024-05-31] MEDS: LACTATED RINGER'S 1,000 ML IV SCH (00:46)
[2024-05-31] MEDS: MoRPHine SULFATE 2 MG/ML CARP IV STA (03:54)
[2024-05-31] MEDS ORDERED: GLUCAGON FOR INJ 1 MG VIAL SQ PRN (04:02)
[2024-05-31] MEDS ORDERED: DEXTROSE 50% 50 ML SYRINGE IV PRN (04:02)
[2024-05-31] MEDS ORDERED: GLUCOSE 10 TAB/TUBE PO PRN (04:02)
[2024-05-31] MEDS ORDERED: CARBOHYDRATES FOR HYPOGLYCEMIA PO PRN (04:02)
[2024-05-31] MEDS ORDERED: GLUCOSE 40% GEL 15 GM TUBE PO PRN (04:02)
[2024-05-31 04:36] LABS: BUN Creatinine Ratio 16.5 (10-20); Calcium 8.3 mg/dl (8.6-10.3); Creatinine Clr Calc Pharmacy 91.1 ml/min; Potassium 3.7 mmol/L (3.5-5.1)
[2024-05-31] MEDS: PANTOprazole 40 MG/10 ML SYR IV ONE (04:36)
[2024-05-31] MEDS: FAMOTIDINE 20MG IV PUSH 20 MG/5 ML SYR IV STA (04:37)
[2024-05-31] MEDS: ALUMINUM/MAGNESIUM SUSP 30 ML UDC PO STA (04:37)
[2024-05-31 05:08] LABS: Hematocrit (blood only) 41.8 % (42.0-52.0); Hemoglobin 12.9 g/dl (14.0-18.0); Mean Corpuscular Hgb Conc 30.9 g/dL (32.0-36.0); Mean Corpuscular Volume 84.1 fL (80.0-100.0); Mean Platelet Volume 9.8 fL (9.4-12.4); Platelet Count 164 K/uL (130-400); RDW Coefficient of Variation 14.8 % (11.5-14.5); RDW Standard Deviation 44.7 fL (36.4-46.3); Red Blood Count 4.97 M/uL (4.70-6.10); White Blood Count 4.51 K/ul (4.8-10.8)
[2024-05-31 05:12] LABS: Prothrombin Time 20.6 Seconds (9.0-12.0)
[2024-05-31] MEDS: PANTOprazole 40 MG TAB PO SCH (08:00)
[2024-05-31] MEDS: DULoxetine HCL 60 MG CAP PO SCH (08:00)
[2024-05-31] MEDS: GABAPENTIN 300 MG CAP PO SCH (08:00)
[2024-05-31] MEDS: ARIPiprazole 5 MG TAB PO SCH (08:01)
[2024-05-31] MEDS: lisinopril 5 MG TAB PO SCH (08:01)
[2024-05-31 08:03] VITALS: RESP 20; O2SAT 95
[2024-05-31] MEDS: INSULIN ASPART PER UNIT CHARGE SC SCH (09:49)
--- NOTE | 2024-05-31 11:31 | Gastrointestinal Consultation ---
Date of Consultation May 31, 2024 Assessment & Plan (1) Nausea & vomiting: (2) Abnormal abdominal CT scan: Plan Patient is feeling well since admission. no further nausea, vomiting, diarrhea or abdominal pain. likely this was something viral in nature. stool studies were ordered and are pending. There does not seem to be any signs of a hemorrhage or extravasation. Recommend supportive care for now. Supervising Physician Co-Signing Physician Notes I personally saw and examined the patient. I have reviewed the chart and agree with the documentation provided by the COFFEE GRINDER including discussion about the assessment, treatment and plan. Briefly, 78 year old male with a past medical history of DM, HTN, JULIETTE, gastric bypass surgery 30+ years ago, who presented to the ED on 05/30 with complaints of nausea, vomiting, diarrhea, and abdominal pain which began on 05/29. Upon evaluation in the ED, he had CT imaging as per below, suggestive of possible hemorrhage/extravasation, however has not shown signs of active bleeding. hgb 12.9. Stool studies have been ordered but results are pending. He tells us that his symptoms have improved since coming to the ED. he feels much better with supportive care. He was able to tolerate a breakfast. I suspect this is viral gastroenteritis and should be treated supportively. Would follow-up on stool cultures. No evidence of bleeding. No role for endoluminal evaluation at this point. He is clinically improving. GI will sign off please call with questions. History of Present Illness Reason for Consultation: abnormal CT Requesting Physician: Pdama Lopez DO Attending Physician: Shavon Edwards MD History of Present Illness Patient is a 78 year old male with a past medical history of DM, HTN, JULIETTE, gastric bypass surgery 30+ years ago, who presented to the ED on 05/30 with complaints of nausea, vomiting, diarrhea, and abdominal pain which began on 05/29. Upon evaluation in the ED, he had CT imaging as per below, suggestive of possible hemorrhage/extravasation, however has not shown signs of active bleeding. hgb 12.9. Stool studies have been ordered but results are pending. He tells us that his symptoms have improved since coming to the ED. no further nausea, vomiting, diarrhea, or abdominal pain. No signs of hemorrhage or extravasation. CT A/P 05/30 Postsurgical change of the stomach with small region of hyperdensity in the lumen adjacent to the suture. Focal hemorrhage/extravasation is a possibility, in the setting of persistent vomiting. If appropriate, and clinical concern warrants, GI and/or surgical consultation suggested. Allergies Allergy/AdvReac Type Severity Reaction Status Date / Time amoxicillin Allergy Intermediate rash Verified 05/30/24 20:26 Penicillins Allergy Intermediate rash Verified 05/30/24 20:26 Home Medications Medication Instructions Recorded Confirmed Type secukinumab 150 mg/mL subcutaneous 300 mg (2 mL) subcut .COMPLEX #6 mL 03/22/22 05/30/24 Rx pen injector (Cosentyx Pen 300 mg/2 Pens () Shower Chair #1 ea 10/04/22 05/24/24 Rx walker (Ultra-Light Rollator misc) #1 ea 10/04/22 05/24/24 Rx duloxetine 60 mg capsule,delayed 60 mg PO QAM #90 caps 08/30/23 05/30/24 Rx release cholecalciferol (vitamin D3) 50 50 mcg PO DAILY 09/09/23 05/30/24 History mcg (2,000 unit) capsule cyanocobalamin (vitamin B-12) 1,000 mcg PO DAILY 09/09/23 05/30/24 History 1,000 mcg tablet loratadine 10 mg tablet 10 mg PO DAILY PRN Allergy Symptoms 09/09/23 05/30/24 History multivitamin with minerals 1 cap PO DAILY 09/10/23 05/30/24 History polyethylene glycol 3350 17 gram 17 g PO DAILY PRN Constipation 09/21/23 05/30/24 History oral powder packet (Miralax) pantoprazole 40 mg tablet,delayed 40 mg PO DAILY 01/17/24 05/30/24 History release aripiprazole 5 mg tablet (Abilify) 5 mg PO QAM #90 tabs 03/01/24 05/30/24 Rx alfuzosin 10 mg tablet,extended 10 mg PO DAILY #30 tabs 04/20/24 05/30/24 Rx release 24 hr lisinopril 5 mg tablet 5 mg PO DAILY #30 tabs 05/16/24 05/30/24 Rx gabapentin 300 mg capsule 300 mg PO TID #90 caps 05/30/24 05/30/24 Rx warfarin 5 mg tablet 5 mg PO [id number] 05/30/24 05/30/24 History warfarin 5 mg tablet 7.5 mg PO WK 05/30/24 05/30/24 History Patient History Medical History Psoriatic arthritis Lumbar radiculopathy Physical debility Sacroiliitis Chronic venous insufficiency as of 01/04/23, currently has wounds on bilateral legs>going to wound care at [facility] Psoriasis Hypertension Venous stasis ulcers of both lower extremities skilled nursing current use of 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 Degenerative arthritis of knee, bilateral Depression Sleep apnea Restarted CPAP BPH loc w urin obs/LUTS Major depressive disorder, recurrent episode, moderate with anxious distress Diabetes mellitus type 2 in obese Hx of deep venous thrombosis RIGHT CALF ~4-5 YRS AGO, COUMADIN DAILY GERD (gastroesophageal reflux disease) Hx pulmonary embolism (~2015) ~14 YRS AGO- NO ISSUES SINCE Pre-procedural laboratory examination Depression Lumbago Hx of pancreatitis Generalized osteoarthritis Anemia Completed EGD/Colonoscopy 2021, Iron Replacement Hiatal hernia Osteoarthritis Scoliosis History of kidney stones History of colitis Diabetes mellitus, type 2 diet controlled Hearing deficit Macular degeneration Traumatic open wound of left lower leg hit thompson on recliner causing a hematoma that started bleeding, was seen and treated at [facility] 07/15/22>healed currently Lymphedema Lumbar spondylosis Metabolic syndrome SNHL (sensorineural hearing loss) Asthma Benign esophageal stricture hx-resolved Surgical History History of esophagogastroduodenoscopy (EGD) (~06/2021) History of colonoscopy History of tooth extraction all teeth removed History of bilateral cataract extraction History of cardiac cath roughly 9yrs ago @ [facility]--no stents; no cardio. S/P tonsillectomy S/P hernia repair incisional hernia S/P gastroplasty 36 years ago>currently being seen to have this procedure corrected in a few months. S/P cholecystectomy Family History Family/Other Hearing loss Paternal cousins Mother Heart disease Hypertension Family history of reaction to anesthesia difficulty waking after surgery Other Myocardial infarction No family history of bleeding disorder Prostate cancer Denies family history of Ovarian cancer Breast cancer Colorectal cancer Social History Smoking Status: Former smoker Tobacco Type: Cigarettes Age Started Using Tobacco: 16; Age Quit Using Tobacco: 30; packs per day: 1; Cigarettes Per Day: QUIT ~45 YRS AGO; Second Hand Exposure: No (hx); Do You Dip or Chew Tobacco: No; Hx Alcohol Use: No Hx Substance Use: No Preferred Language: Faroese Communication Ability: Effective Visual Impairment: Limited Hearing Ability: Use of Hearing Aid Grocery Store Associate Required: No Beliefs That Will Affect Care: None marital status: Current Living Situation: Other Current Living Situation Comment: lives w/ roommates current occupational status: retired How many Children do You have: 1 Feels Safe at Home: Yes Safety Concerns: Feels Safe At This Time Childhood Exposure to Second-Hand Smoke: Yes Diet: regular caffeine: No Dental Care, Regularly: No Physical Activity Frequency: Does not Exercise Seatbelt Use: always Sunscreen Use: Yes Assistive Devices: Cane, Denture - Upper, Denture - Lower, Glasses and Hearing Aid - Bilateral Review of Systems Review of Systems: All systems reviewed & are unremarkable except as noted in HPI & below Physical Exam Constitutional: WD/WN, vitals as above Respiratory: normal respiratory effort, lungs clear to auscultation Cardiovascular: Rate/Rhythm: regular rate and regular rhythm Gastrointestinal (Abdomen): normal bowel sounds, soft, nontender, no hepatosplenomegaly Psychiatric: Orientation: alert and oriented x 3 Affect: euthymic affect Results & Data Vital Signs (Past 12 Hours) Vital Signs Pulse Pulse Resp BP BP Pulse Ox O2 Del Method 05/31/24 10:00 146/92 H 05/31/24 09:54 157/79 H 05/31/24 09:54 157/79 H 05/31/24 08:00 161/83 H 05/31/24 08:00 161/83 H 05/31/24 08:00 70 20 161/83 H 95 Room Air 05/31/24 07:39 67 27 H 99 05/31/24 07:02 63 05/31/24 07:00 65 23 99 Nasal Cannula 05/31/24 06:00 67 18 135/73 99 Nasal Cannula 05/31/24 03:39 74 18 130/70 98 Nasal Cannula 05/31/24 02:00 75 16 133/63 98 Nasal Cannula 05/31/24 00:00 84 14 115/54 L 97 Nasal Cannula 05/30/24 23:33 80 05/30/24 23:30 Nasal Cannula 05/30/24 23:30 90 14 99/81 L 97 Nasal Cannula O2 Flow Rate 05/31/24 10:00 05/31/24 09:54 05/31/24 09:54 05/31/24 08:00 05/31/24 08:00 05/31/24 08:00 05/31/24 07:39 05/31/24 07:02 05/31/24 07:00 2 05/31/24 06:00 2 05/31/24 03:39 2 05/31/24 02:00 2 05/31/24 00:00 2 05/30/24 23:33 05/30/24 23:30 2 05/30/24 23:30 2 Coding Level of Care Code 03909 INT INP/OBS CARE 2/55MIN Diagnoses Nausea & vomiting R11.[address] scan R93.5
[2024-05-31 11:32] LABS: Adenovirus F 40/41 PCR Not Detected (NotDetected); Astrovirus PCR Not Detected (NotDetected); Campylobacter PCR Not Detected (NotDetected); Cryptosporidium PCR Not Detected (NotDetected); Cyclospora cayetanensis PCR Not Detected (NotDetected); Entamoeba histolytica PCR Not Detected (NotDetected); Enteroaggregative E.coli(EAEC) Not Detected (NotDetected); Enteropathogenic E.coli (EPEC) Not Detected (NotDetected); Enterotoxigenic E.coli (ETEC) Not Detected (NotDetected); Giardia lamblia PCR Not Detected (NotDetected); Plesiomonas shigelloides PCR Not Detected (NotDetected); Rotavirus A PCR Not Detected (NotDetected); Salmonella PCR Not Detected (NotDetected); Sapovirus PCR Not Detected (NotDetected); Shiga-like Toxin E.coli (STEC) Not Detected (NotDetected); Shigella/Enteroinvasive E.coli Not Detected (NotDetected); Vibrio cholerae PCR Not Detected (NotDetected); Vibrio species PCR Not Detected (NotDetected); Yersinia enterocolitica PCR Not Detected (NotDetected)
[2024-05-31 11:35] LABS: Norovirus GI/GII PCR DETECTED (NotDetected)
[2024-05-31 15:44] VITALS: BP 135/73; PULSE 67
--- NOTE | 2024-05-31 15:50 | Electrocardiogram Report ---
Test Reason : Blood Pressure : */* mmHG Vent. Rate : 119 BPM Atrial Rate : 119 BPM P-R Int : 196 ms QRS Dur : 82 ms QT Int : 392 ms P-R-T Axes : 41 -20 49 degrees QTcB Int : 551 ms Sinus tachycardia with Premature atrial complexes Poor R wave progression, consider anterior DE vs. lead placement vs. LVH Prolonged QT Abnormal ECG When compared with ECG of 30-Dec-2023 21:36, Borderline criteria for Anterior infarct are now Present Confirmed by Kory Samuel ([id number]) on 05/31/2024 3:50:26 PM Referred By: REFERRED SELF Confirmed By: Kory Samuel
[2024-05-31] MEDS ORDERED: WARFARIN SOD 5 MG TAB PO SCH (16:00)
--- NOTE | 2024-05-31 18:56 | Discharge Summary ---
Discharge Summary Date of Service May 31, 2024 Principal Dx & Hospital Course #1 = Principal Diagnosis (1) Nausea & vomitinyo male with one day of nausea, vomiting, diarrhea as well a abdominal pain. CT findings as above with region of hyperdensity int he lumen adjacent to the suture. Patient reports that he has a "pouch" from his gastric bypass surgery and food will get stuck in the pouch. Possibly viewing this on the CT. No clinical evidence of active bleeding. Patient denies hematemesis or coffee ground emesis -Observation to medical -Check stool biofire -GI consultation appreciated re: CT findings -LR at 100mL/hr x 1L orderd -Tylenol PRN -Protonix (2) Acute gastroenteritis: 78 year old male with a past medical history of DM, HTN, JULIETTE, gastric bypass surgery 30+ years ago, chronic anticoagulation with warfarin who presented to the ED on 05/30 with complaints of nausea, vomiting, diarrhea, and abdominal pain which began on 05/29. Upon evaluation in the ED, he had CT imaging suggestive of possible hemorrhage/extravasation within the stomach, however did not have any signs of active bleeding. # Abnormal CT, concern for acute gastric hemorrhage He stayed overnight, PPI continued, Hg was monitored. Accounting for hemoconcentration and dilutional drop it is stable and at his recent baseline compared to recent checks. He had no hematemesis or blood per rectum. Gastroenterology consulted. There was no evidence of significant acute bleeding. Perhaps was artifact or a minor amount of bleeding induced by vomiting setting of anticoagulation (for example, nael santana tear.) # Acute gastroenteritis - Family members have also had GI symptoms, probably norovirus. symptoms resolved today, tolerating general diet. Denies needing antiemetic for discharge. May use imodium PRN. 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 Patient reports vomiting multiple times - non-bloody/non-bilious as well as multiple liquid, non-bloody stools. He has lower abdominal discomfort, band-like across his lower abdomen. Also endorses some chest discomfort as well as generalized weakness with inability to ambulate or stand up from the commode. He has had some dizziness as well, particularly with positional changes. +Sick contacts - friend wtih abdominal pain for the last several days No travel, suspicious food intake. On [place] water. Discharge Plan Discharge Items Patient Disposition: Home - Self-Care Reason For Visit: NAUSEA, VOMITING, DIARRHEA Discharge Diagnosis: Acute gastroenteritis Activity: Resume your previous activity Non-emergency contact: Primary Care Provider Call non-emergency contact if: you have any medication questions and your symptoms worsen Follow-up/Referrals: Henry Prieto, [Primary Care Provider] - Diet: Regular Addtl Attending Provider Instructions: Acute gastroenteritis - resolved/resolving Its suspicious for infectious gastroenteritis (norovirus, for example) which is currently rampant in the area. This usually resolves on its own in 24-72 hours There might have been a little blood in your stomach on CT, probably from vomiting, but we didn't find and signs of severe bleeding. Keep taking the pantoprazole You can take Imodium as needed for diarrhea/loose stool It was a pleasure taking care of you in the hospital, Shavon Edwards MD Pending Studies at Discharge: No Stand-Alone Forms: My [facility], Smoking Cessation Medications and DC Order Prescriptions: Continued pantoprazole 40 mg tablet,delayed release (DR/EC) 40 mg PO DAILY Cosentyx Pen (2 Pens) 150 mg/mL pen injector 300 mg subcut .COMPLEX Qty: 6 3RF Rx Instructions: 300 mg every 4 weeks (on Svetlana's) for maintenance as directed duloxetine 60 mg capsule,delayed release(DR/EC) 60 mg PO QAM Qty: 90 3RF aripiprazole [Abilify] 5 mg tablet 5 mg PO QAM Qty: 90 1RF Rx Instructions: for depression alfuzosin 10 mg tablet extended release 24 hr 10 mg PO DAILY Qty: 30 2RF Rx Instructions: administer after the same meal each day lisinopril 5 mg tablet 5 mg PO DAILY Qty: 30 5RF gabapentin 300 mg capsule 300 mg PO TID Qty: 90 5RF (DME) Shower Chair Misc See Rx Instructions .Route Qty: 1 0RF Rx Instructions: As directed (DME) Ultra-Light Rollator Misc See Rx Instructions .Route Qty: 1 0RF Rx Instructions: As directed cholecalciferol (vitamin D3) 50 mcg (2,000 unit) capsule 50 mcg PO DAILY cyanocobalamin (vitamin B-12) 1,000 mcg tablet 1,000 mcg PO DAILY loratadine 10 mg tablet 10 mg PO DAILY PRN (Reason: Allergy Symptoms) polyethylene glycol 3350 [Miralax] 17 gram powder in packet 17 g PO DAILY PRN (Reason: Constipation) Rx Instructions: purchase [id number] multivitamin with minerals Capsule 1 cap PO DAILY warfarin 5 mg tablet 5 mg PO 6XWK Rx Instructions: TAKE 5MG EVERY TUESDAY/TUESDAY/TUESDAY/TUESDAY/TUESDAY/TUESDAY. warfarin 5 mg tablet 7.5 mg PO WK Rx Instructions: TAKE 1 & 1/2 TAB EVERY TUESDAY Discharge Orders: Discharge Order (Routine); Ordered 05/31/24 Ordered By: Shavon Edwards Admission Data Admit Date/Time: 05/30/24 21:39 Attending Provider: Shavon Edwards Admit Provider: Padma Lopez Primary Care Provider: Henry Prieto Other Providers: Romario Reece; Padma Lopez Other Interventions: Discharge Summary Assessment (RN) Last Done: 05/31/24 15:00 Hospital Stay Data Consultations 05/30/24 19:22 ED Decision to Admit Stat 05/30/24 21:39 Consult Gastroenterology Routine Diagnostic Imagining Performed 05/30/24 17:30 CT abd pelvis IV con only Stat Pending Results Patient Have Any Pending Studies at Discharge: No Discharge Instructions Given to Patient (Per Discharging Provider) Acute gastroenteritis - resolved/resolving Its suspicious for infectious gastroenteritis (norovirus, for example) which is currently rampant in the area. This usually resolves on its own in 24-72 hours There might have been a little blood in your stomach on CT, probably from vomiting, but we didn't find and signs of severe bleeding. Keep taking the pantoprazole You can take Imodium as needed for diarrhea/loose stool It was a pleasure taking care of you in the hospital, Shavon Grace MD Total Time Total Time Spent Total Time Spent (In Minutes): <30 Coding Level of Care Code 64060 IN/OBS DISCH 30 MIN/LESS Diagnoses Nausea & vomiting R11.2 Acute gastroenteritis K52.[address] scan R93.5
--- NOTE | 2024-06-04 15:00 | Electrocardiogram Report ---
Test Reason : Blood Pressure : */* mmHG Vent. Rate : 101 BPM Atrial Rate : 101 BPM P-R Int : 202 ms QRS Dur : 76 ms QT Int : 324 ms P-R-T Axes : 47 -7 50 degrees QTcB Int : 420 ms Sinus tachycardia Poor R wave progression, consider anterior CT vs. lead placement vs. LVH Abnormal ECG When compared with ECG of 30-May-2024 16:07, Premature atrial complexes are no longer Present Confirmed by Liam Orellana ([id number]) on 06/04/2024 3:00:29 PM Referred By: REFERRED SELF Confirmed By: Liam Orellana
--- NOTE | 2024-06-04 15:01 | Electrocardiogram Report ---
Test Reason : Blood Pressure : */* mmHG Vent. Rate : 80 BPM Atrial Rate : 70 BPM P-R Int : 214 ms QRS Dur : 80 ms QT Int : 372 ms P-R-T Axes : 38 5 54 degrees QTcB Int : 429 ms Sinus rhythm with 1st degree A-V block with Premature supraventricular complexes and with occasional Premature ventricular complexes Otherwise normal ECG When compared with ECG of 30-May-2024 19:50, (unconfirmed) Premature ventricular complexes are now Present Premature supraventricular complexes are now Present Confirmed by Liam Orellana ([id number]) on 06/04/2024 3:00:56 PM Referred By: REFERRED SELF Confirmed By: Liam Orellana
[2024-06-06] MEDS ORDERED: WARFARIN SOD 7.5 MG TAB PO SCH (16:00)
== END 2024-05-31 15:00 | disposition home or self-care (01) ==
LOC: ED 15:53 → EDINP 15:53 → SUATTDRO 21:39 → EDINP 22:51

== ENCOUNTER 2024-06-30 11:23 | Inpatient (IN) ==
[2024-06-30 12:19] LABS: Basophils # (auto) 0.03 K/uL (0.00-0.20); Basophils % (auto) 0.3 %; Eosinophils # (auto) 0.14 K/uL (0.00-0.50); Eosinophils % (auto) 1.2 %; Hematocrit (blood only) 46.6 % (42.0-52.0); Hemoglobin 14.9 g/dl (14.0-18.0); Immature Granulocytes # (auto) 0.03 K/uL (0.01-0.20); Immature Granulocytes % (auto) 0.3 %; Lymphocytes % (auto) 8.5 %; Mean Corpuscular Hemoglobin 26.9 pg (25.0-34.0); Mean Corpuscular Volume 84.1 fL (80.0-100.0); Mean Platelet Volume 9.6 fL (9.4-12.4); Monocytes # (auto) 0.67 K/uL (0.11-0.59); Monocytes % (auto) 5.7 %; Neutrophils # (auto) 9.86 K/uL (1.40-6.50); Platelet Count 177 K/uL (130-400); RDW Coefficient of Variation 15.1 % (11.5-14.5); RDW Standard Deviation 45.7 fL (36.4-46.3); Red Blood Count 5.54 M/uL (4.70-6.10); White Blood Count 11.73 K/ul (4.8-10.8)
[2024-06-30 12:33] LABS: Alanine Aminotransferase 15 U/L (7-52); Albumin Globulin Ratio 1.2 (0.9-2); Alkaline Phosphatase 131 U/L (34-104); Anion Gap 5 (3-11); Aspartate Aminotransferase 21 U/L (13-39); BUN Creatinine Ratio 13.6 (10-20); Bilirubin,Total 0.5 mg/dl (0.2-1.0); Blood Urea Nitrogen 17 mg/dl (6-23); Calcium 9.7 mg/dl (8.6-10.3); Carbon Dioxide 32 mmol/L (21-32); Chloride 103 mmol/L (98-107); Globulin 3.4 gm/dl (2.5-4.0); Glucose 209 mg/dl (70-99(Fasting)); Potassium 4.5 mmol/L (3.5-5.1); Sodium 140 mmol/L (136-145); Total Protein 7.4 gm/dl (6.0-8.3)
--- NOTE | 2024-06-30 12:38 | Emergency Department Note ---
ED Provider Note History of Present Illness Chief Complaint: Flank Pain Stated Complaint: FLANK PAIN Time Seen by Provider: 06/30/24 11:46 Source: patient Mode of arrival: ambulatory Limitations: no limitations Patient is a 78-year-old male who presents to the emergency department with complaints of right sided flank pain. Patient states that he had several episodes of urinary incontinence over the night and has some right sided flank pain that is consistently an 8 out of 10. Patient states this morning that he is then having difficulty voiding. Home Medications Medication Instructions Recorded Confirmed Type secukinumab 150 mg/mL subcutaneous 300 mg (2 mL) subcut .COMPLEX #6 mL 03/22/22 06/30/24 Rx pen injector (Cosentyx Pen 300 mg/2 Pens () Shower Chair #1 ea 10/04/22 06/12/24 Rx walker (Ultra-Light Rollator misc) #1 ea 10/04/22 06/12/24 Rx cholecalciferol (vitamin D3) 50 50 mcg PO DAILY 09/09/23 06/30/24 History mcg (2,000 unit) capsule cyanocobalamin (vitamin B-12) 1,000 mcg PO DAILY 09/09/23 06/30/24 History 1,000 mcg tablet multivitamin with minerals 1 cap PO DAILY 09/10/23 06/30/24 History lisinopril 5 mg tablet 5 mg PO DAILY #30 tabs 05/16/24 06/30/24 Rx gabapentin 300 mg capsule 300 mg PO TID #90 caps 05/30/24 06/30/24 Rx warfarin 5 mg tablet See Rx Instructions .Route .COMPLEX 05/30/24 06/30/24 History aripiprazole 5 mg tablet (Abilify) 5 mg PO DAILY 06/28/24 06/30/24 History duloxetine 60 mg capsule,delayed 60 mg PO QDL 06/28/24 06/30/24 History release pantoprazole 40 mg tablet,delayed 40 mg PO DAILY 06/28/24 06/30/24 History release alfuzosin 10 mg tablet,extended 10 mg PO QPM 06/30/24 06/30/24 History release 24 hr Allergies Allergy/AdvReac Type Severity Reaction Status Date / Time amoxicillin Allergy Intermediate rash Verified 06/30/24 15:40 Penicillins Allergy Intermediate rash Verified 06/30/24 15:40 Past Med/Surg History Problem List Hydronephrosis (Acute) Acute UTI (urinary tract infection) (Acute) Urinary tract infection Right rotator cuff tear Bilateral primary osteoarthritis of knee Acute gastroenteritis Weakness (Acute) Venous ulcer of left leg (Acute) Venous ulcer of right leg (Acute) Abnormal ankle brachial index (Acute) Constipation Confusion Lumbar radiculopathy, right Hypokalemia Verbal abuse of adult (Acute) Cellulitis of right leg Chest pain (Acute) Erectile dysfunction Increased urinary frequency Open wound of toe (Acute) Arthritis Chronic diarrhea Fatty infiltration of liver Morbid obesity (Chronic) BMI 45.8% Medical History Prediabetes Low iron hx>iron infusions in past Short-term memory loss "mild" Psoriatic arthritis Lumbar radiculopathy Physical debility Sacroiliitis Chronic venous insufficiency Psoriasis Hypertension nursing home current use of 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 Degenerative arthritis of knee, bilateral Depression Sleep apnea does not use device BPH loc w urin obs/LUTS Hx of deep venous thrombosis ? date years ago>reason for daily coumadin GERD (gastroesophageal reflux disease) Hx pulmonary embolism (~2015) reason for coumadin Lumbago Hx of pancreatitis Generalized osteoarthritis Hiatal hernia Osteoarthritis Scoliosis History of kidney stones History of colitis Hearing deficit Macular degeneration Traumatic open wound of left lower leg hit thompson on recliner causing a hematoma that started bleeding, was seen and treated at [facility] 07/15/22>healed currently Lumbar spondylosis Metabolic syndrome SNHL (sensorineural hearing loss) Asthma denies any inhaler use Benign esophageal stricture hx-resolved Surgical History History of anesthesia reaction August 2023>attemped robotic lap abdomen procedure aborted d/t BP dropping H/O abdominal surgery August 2023>lap abdominal procedure attempted in [facility] to correct pouch formation "BP dropped/procedure aborted" History of lithotripsy History of appendectomy History of tooth extraction History of esophagogastroduodenoscopy (EGD) (~06/2021) History of colonoscopy History of tooth extraction all teeth removed History of bilateral cataract extraction History of cardiac cath 1994? @ [facility]--no stents; no cardio. S/P tonsillectomy S/P hernia repair incisional hernia S/P gastroplasty 36 years ago>currently being seen to have this procedure corrected in a few months. S/P cholecystectomy Family History Family/Other Hearing loss Paternal cousins Mother Heart disease Hypertension Family history of reaction to anesthesia difficulty waking after surgery Other Myocardial infarction No family history of bleeding disorder Prostate cancer Denies family history of Ovarian cancer Breast cancer Colorectal cancer Social History Smoking Status: Former smoker Tobacco Type: Cigarettes Age Started Using Tobacco: 16; Age Quit Using Tobacco: 30; packs per day: 1; Cigarettes Per Day: QUIT ~45 + YRS AGO; Second Hand Exposure: Yes (in the past); Do You Dip or Chew Tobacco: No; Hx Alcohol Use: No Hx Substance Use: No Preferred Language: Sri Lankan Communication Ability: Effective Visual Impairment: Limited Hearing Ability: Use of Hearing Aid 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: No Beliefs That Will Affect Care: None marital status: Current Living Situation: Other Current Living Situation Comment: lives with 2 roommates current occupational status: retired How many Children do You have: 1 Other Information That Helps Us Care for You: No Feels Safe at Home: Yes Safety Concerns: Feels Safe At This Time Childhood Exposure to Second-Hand Smoke: Yes Diet: regular caffeine: No Dental Care, Regularly: No Physical Activity Frequency: Does not Exercise Seatbelt Use: always Sunscreen Use: Yes Assistive Devices: CPAP, Denture - Upper, Denture - Lower, Glasses and Walker Physical Exam Vital Signs Vital Signs - 24 hr 06/30/24 11:38 06/30/24 13:21 06/30/24 13:35 Temperature 36.6 C Temperature Source Oral Pulse Rate 107 H 117 H Pulse Rate [Apical] 108 H Respiratory Rate 18 22 Respiratory Effort / Characteristics Non-Labored Spontaneous Respiratory Depth Normal Respiratory Pattern Regular Blood Pressure 114/72 Blood Pressure [Left Arm] 163/79 H Blood Pressure Mean 86 Blood Pressure Mean [Left Arm] 107 Blood Pressure Position Sitting Pulse Oximetry 97 94 Oxygen Delivery Method Room Air Room Air Sepsis Recent Fever Within 48 Hours No Sepsis New/Unexplained Change in Mental Status No Sepsis Action Taken by Nursing No Action Required 06/30/24 15:00 Temperature Temperature Source Pulse Rate Pulse Rate [Apical] 100 H Respiratory Rate 18 Respiratory Effort / Characteristics Non-Labored Spontaneous Respiratory Depth Normal Respiratory Pattern Blood Pressure Blood Pressure [Left Arm] 118/65 Blood Pressure Mean Blood Pressure Mean [Left Arm] 82 Blood Pressure Position Pulse Oximetry 96 Oxygen Delivery Method Room Air Sepsis Recent Fever Within 48 Hours Sepsis New/Unexplained Change in Mental Status Sepsis Action Taken by Nursing VITAL SIGNS - Vital signs and nursing notes were reviewed. GENERAL -78-year-old male appearing their stated age, who is in no acute distress. Communicates well with provider and answers questions appropriately. HEAD - Normocephalic, Atraumatic. No Neil's Sign or Raccoon's Eyes. EYES - PERRL with EOMI bilaterally. Sclera anicteric. Conjunctiva pink and moist with no injection noted. NECK - Neck with FROM. Supple to palpation. No lymphadenopathy noted. LUNGS - Chest wall symmetric without accessory muscle use, intercostals retractions, or central cyanosis. Normal vesicular breath sounds CTA B/L. No wheezes, rales, or rhonchi appreciated. CARDIAC - RRR with S1/S2. No murmur, rubs, or gallops appreciated. ABDOMEN- Soft and non-tender, notes discomfort at right flank. Bowel sounds present in all 4 quadrants. EXTREMITIES - No edema present. +5/5 strength noted in UE/LE bilaterally. NEUROLOGIC -Sensory intact to light touch throughout. PSYCH - A&Ox3 and cooperates fully with examiner. Pt is very pleasant and interacts well with examiner Course Administered Medications Acetaminophen (Acetaminophen 325 Mg Tab) 650 mg PO Q4H PRN PRN Reason: pain/fever Stop: 07/30/24 15:55 Last Admin: 07/01/24 04:27 Dose: 650 mg Documented By: Admin: 06/30/24 20:13 Dose: 650 mg Documented By: DIONY Gabapentin (Gabapentin 300 Mg Cap) [address] [facility] Stop: 07/30/24 20:59 Last Admin: 06/30/24 20:13 Dose: 300 mg Documented By: DIONY Nystatin (Nystatin Powder 15gm Btl) 1 appln EXT BID LEV Stop: 07/30/24 20:59 Last Admin: 06/30/24 20:13 Dose: 1 appln Documented By: DIONY Tamsulosin HCl (Tamsulosin Hcl 0.4 Mg Cap) 0.4 mg PO QPM LEV Stop: 07/30/24 20:59 Last Admin: 06/30/24 20:13 Dose: 0.4 mg Documented By: DIONY Discontinued Medications Sodium Chloride (Nss) 500 mls @ 999 mls/hr IV .Q31M ONE Stop: 06/30/24 13:40 Last Infusion: 06/30/24 15:16 Dose: Infused Documented By: Admin: 06/30/24 13:17 Dose: 999 mls/hr Documented By: ISAURA Acetaminophen (Ofirmev) 1,000 mg in 100 mls @ 400 mls/hr IV NOW STA Stop: 06/30/24 13:24 Last Infusion: 06/30/24 15:16 Dose: Infused Documented By: Admin: 06/30/24 13:17 Dose: 400 mls/hr Documented By: ISAURA Ceftriaxone Sodium (Rocephin) 2,000 mg in 50 mls @ 100 mls/hr IV NOW STA Stop: 06/30/24 15:57 Last Infusion: 06/30/24 16:29 Dose: Infused Documented By: Admin: 06/30/24 15:33 Dose: 100 mls/hr Documented By: KIRSTEN Sodium Chloride (Nss) 500 mls @ 999 mls/hr IV .Q31M ONE Stop: 06/30/24 16:10 Last Infusion: 06/30/24 16:29 Dose: Infused Documented By: Admin: 06/30/24 15:44 Dose: 999 mls/hr Documented By: KIRSTEN Lactated Ringer's (Lr) 500 mls @ 999 mls/hr IV .Q31M ONE Stop: 06/30/24 22:44 Last Infusion: 06/30/24 23:19 Dose: Infused Documented By: Admin: 06/30/24 22:48 Dose: 999 mls/hr Documented By: DIONY Ioversol (Optiray 320 100ml) 94 ml IV ONCE ONE Stop: 06/30/24 12:44 Last Admin: 06/30/24 12:43 Dose: 94 ml Documented By: JESUS Ketorolac Tromethamine (Ketorolac Tromethamine 15 Mg/Ml Vial) 15 mg IV NOW STA Stop: 06/30/24 15:17 Last Admin: 06/30/24 15:31 Dose: 15 mg Documented By: KIRSTEN Medical Decision Making Differential Diagnosis Differential diagnoses includes gastritis, gastroenteritis, urinary tract infection, kidney stone, BPH, among others. Medical Records Attestation: I reviewed the patient's medical records. Home Medications was personally reviewed by me Laboratory Data Attestation: I reviewed the patient's lab results. 07/01/24 06:31 07/01/24 06:31 Lab Results 06/30/24 06/30/24 06/30/24 Range/Units 11:52 14:42 15:28 WBC 11.73 H (4.8-10.8) K/ul RBC 5.54 (4.70-6.10) M/uL Hgb 14.9 (14.0-18.0) g/dl Hct 46.6 (42.0-52.0) % MCV 84.1 (80.0-100.0) fL MCH 26.9 (25.0-34.0) pg MCHC 32.0 (32.0-36.0) g/dL RDW Std Deviation 45.7 (36.4-46.3) fL RDW Coeff of Monique 15.1 H (11.5-14.5) % Plt Count 177 (130-400) K/uL MPV 9.6 (9.4-12.4) fL Immature Gran % (Auto) 0.3 % Neut % (Auto) 84.0 % Lymph % (Auto) 8.5 % [place] % (Auto) 5.7 % Eos % (Auto) 1.2 % Baso % (Auto) 0.3 % Neut # (Auto) 9.86 H (1.40-6.50) K/uL Lymph # (Auto) 1.00 L (1.20-3.40) K/uL [place] # (Auto) 0.67 H (0.11-0.59) K/uL Eos # (Auto) 0.14 (0.00-0.50) K/uL Baso # (Auto) 0.03 (0.00-0.20) K/uL Immature Gran # (Auto) 0.03 (0.01-0.20) K/uL Sodium 140 (136-145) mmol/L Potassium 4.5 (3.5-5.1) mmol/L Chloride 103 (98-107) mmol/L Carbon Dioxide 32 (21-32) mmol/L Anion Gap 5 (3-11) BUN 17 (6-23) mg/dl Creatinine 1.25 (0.6-1.4) mg/dl Est Cr Clr Drug Dosing Not Reportable eGFR 59.31 BUN/Creatinine Ratio 13.6 (10-20) Glucose 209 H (70-99(Fasting)) mg/dl Lactate 1.6 (0.4-2.0) mmol/L Calcium 9.7 (8.6-10.3) mg/dl Total Bilirubin 0.5 (0.2-1.0) mg/dl AST 21 (13-39) U/L ALT 15 (7-52) U/L Alkaline Phosphatase 131 H (34-104) U/L Total Protein 7.4 (6.0-8.3) gm/dl Albumin 4.0 (3.4-5.0) gm/dl Globulin 3.4 (2.5-4.0) gm/dl Albumin/Globulin Ratio 1.2 (0.9-2) Urine Color Thurston Urine Appearance Cloudy A (Clear) Urine pH 7.0 (4.5-7.5) Ur Specific [place] > 1.045 H (1.000-1.030) Urine Protein 3+ H (Negative) Urine Glucose (UA) Negative (Negative) Urine Ketones Negative (Negative) Urine Blood 3+ H (Negative) Urine Nitrite Negative (Negative) Urine Bilirubin Negative (Negative) Urine Urobilinogen Negative (Negative) Ur Leukocyte Esterase 2+ H (Negative) Urine WBC (Auto) >50 H (0-5) /hpf Urine RBC (Auto) >20 H (0-2) /hpf U Hyaline Cast (Auto) 0-2 (0-2) /lpf U Epithel Cells (Auto) 0-2 (0-2) /hpf Urine Bacteria (Auto) 4+ H (None Seen) Imaging Data Radiologist's Impression: Abdomen/Pelvis CT 06/30/24 11:46 CT OF THE ABDOMEN AND PELVIS WITH CONTRAST CLINICAL HISTORY: Urinary symptoms, right side flank pain. COMPARISON STUDY: CT of the abdomen and pelvis May 30, 2024. TECHNIQUE: Following IV administration of 94 mL of Optiray, axial images of the abdomen and pelvis were obtained from the lung bases to the proximal femurs. Images were reviewed in the axial, sagittal, and coronal planes. IV contrast was administered without complication. Automated exposure control was utilized for the study. A dose lowering technique was utilized adhering to the principles of ALARA. CT DOSE: 1549.61 mGy.cm FINDINGS: No pneumatosis, free air or portal venous gas is present. Stable postoperative findings within the stomach are noted. There is hepatic steatosis. No biliary or pancreatic ductal dilatation is present status post cholecystectomy. Spleen, adrenal glands and pancreas are unremarkable. Mild bilateral renal cortical thinning is noted. A small subcapsular right renal fluid collection measuring 1.1 cm is unchanged since initial CT of March 07, 2020. Moderate right hydronephrosis is also similar to prior exams. Caliber of the right ureter is normal. There are no ureteral calculi. Urothelial thickening involving the right collecting system, right ureter and bladder is noted. There is adjacent stranding. There is no evidence for a bowel obstruction. Caliber and wall thickness of small and large bowel are normal. Major vasculature is patent. IMPRESSION: 1. Moderate right hydronephrosis with normal caliber ureter, similar to prior exams. This suggests a chronic UPJ obstruction. Interval development of urothelial thickening of the right collecting system, ureter and bladder suggestive of cystitis and pyelitis. Findings could be correlated with urinalysis. 2. No change in an old small subcapsular renal fluid collection. 3. Hepatic steatosis. 4. No bowel obstruction. ACT 112: Negative or not required by law. Electronically signed by: Félix Delatorre M.D. 06/30/2024 1:25 PM [facility] Narrative Patient is a 78-year-old male who presents to the emergency department with complaints of right sided flank pain. Patient states that he had several episodes of urinary incontinence over the night and has some right sided flank pain that is consistently an 8 out of 10. Patient states this morning that he is then having difficulty voiding. Patient was evaluated by myself and findings were noted in the physical exam above. Patient was ordered IV placement, lab work, urinalysis and a CT of the abdomen pelvis. Patient's lab work resulted with an elevated white blood cell count of 11.73. Patient had no indication of anemia with a hemoglobin of 14.9 and hematocrit of 46.6. Patient's kidney function tests were normal with a BUN of 17 and creatinine of 1.25. Patient's liver function tests were also normal. Patient's blood glucose was elevated at 209, however the patient does have a history of diabetes. Patient's urinalysis resulted and was indicative of infection with 4+ bacteria and 3+ blood noted. Patient CT of the abdomen pelvis was completed and interpreted by radiology to show a moderate right hydronephrosis and was suggestive of a chronic UPJ obstruction. I discussed these findings with the patient and the patient verbalized understanding. Patient reports that he is not ever seen urology for his urinary symptoms but does experience what he feels to be urinary retention frequently. Patient states that he feels like he has to void but is unable to produce much urine. Patient stated that he is concerned about going home as he has not been able to make it to the bathroom in time before he is incontinent of urine and is concerned that with the discomfort that he is having and his urgency to get to the restroom that he does not feel safe going home as he may fall or be unable to control his pain. I discussed with the patient that I could speak to the hospitalist group about keeping him in the hospital for a couple days for observation and IV antibiotics. Patient verbalized understanding and stated that he preferred this idea as he felt it would be the safest option for him. I reached out to [facility] hospitalist group and gave them a full report of the patient's chief complaint, current status and the results of his lab work and imaging. I discussed with them that the patient felt most comfortable staying in the hospital for couple days for IV antibiotics and further evaluation from urology and they were agreeable to except the patient under their service for admission to the hospital. Please refer to [facility] hospitalist group's documentation for further evaluation and management of this patient. Impression Acute UTI (urinary tract infection), Hydronephrosis Discharge Plan Visit Data Chief Complaint: Flank Pain Stated Complaint: FLANK PAIN ED Provider: Shandra Hernández ED Midlevel Provider: Allie Tran Discharge Problem: Acute UTI (urinary tract infection), Hydronephrosis Patient Disposition: Admitted As Inpatient Discharge Instructions Interventions: ED Discharge Assessment Last Done: 06/30/24 17:41 Discharge Problem: Hydronephrosis Qualifiers: Hydronephrosis type: with ureteropelvic junction obstruction Qualified Code(s): Q62.11 - Congenital occlusion of ureteropelvic junction
[2024-06-30] MEDS: OPTIRAY 320 100ml IV ONE (12:43)
[2024-06-30] MEDS: SODIUM CHLORIDE 0.9% 500 ML IV ONE ×2 (13:17→15:44)
[2024-06-30] MEDS: ACETAMINOPHEN 1,000 MG/100 ML VIAL IV STA (13:17)
--- NOTE | 2024-06-30 13:28 | CT Scan Report ---
CT OF THE ABDOMEN AND PELVIS WITH CONTRAST CLINICAL HISTORY: Urinary symptoms, right side flank pain. COMPARISON STUDY: CT of the abdomen and pelvis May 30, 2024. TECHNIQUE: Following IV administration of 94 mL of Optiray, axial images of the abdomen and pelvis we re obtained from the lung bases to the proximal femurs. Images were reviewed in the axial, sagittal, and coronal planes. IV contrast was administered without complication. Automated exposure control wa s utilized for the study. A dose lowering technique was utilized adhering to the principles of ALARA . CT DOSE: 1549.61 mGy.cm FINDINGS: No pneumatosis, free air or portal venous gas is present. Stable postoperative findings wit hin the stomach are noted. There is hepatic steatosis. No biliary or pancreatic ductal dilatation is present status post cholecystectomy. Spleen, adrenal glands and pancreas are unremarkable. Mild bilat eral renal cortical thinning is noted. A small subcapsular right renal fluid collection measuring 1.1 cm is unchanged since initial CT of March 07, 2020. Moderate right hydronephrosis is also similar to prior exams. Caliber of the right ureter is normal. There are no ureteral calculi. Urothelial thi ckening involving the right collecting system, right ureter and bladder is noted. There is adjacent s tranding. There is no evidence for a bowel obstruction. Caliber and wall thickness of small and large bowel are normal. Major vasculature is patent. IMPRESSION: 1. Moderate right hydronephrosis with normal caliber ureter, similar to prior exams. This suggests a chronic UPJ obstruction. Interval development of urothelial thickening of the right collecting system , ureter and bladder suggestive of cystitis and pyelitis. Findings could be correlated with urinalysi s. 2. No change in an old small subcapsular renal fluid collection. 3. Hepatic steatosis. 4. No bowel obstruction. ACT 112: Negative or not required by law. Electronically signed by: Félix Delatorre M.D. 06/30/2024 1:25 PM
[2024-06-30 15:00] LABS: Appearance Urine Cloudy (Clear); Bacteria Urine Automated 4+ (None Seen); Bilirubin Urine Negative (Negative); Blood Urine 3+ (Negative); Cast Urine Automated 0-2 /lpf (0-2); Color Urine Orange; Epithelial Cell Urine Auto 0-2 /hpf (0-2); Glucose Urine UA Negative (Negative); Ketones Urine Negative (Negative); Leukocyte Esterase Urine 2+ (Negative); Nitrite Urine Negative (Negative); Protein Urine 3+ (Negative); RBC Urine Automated >20 /hpf (0-2); Specific Gravity Urine > 1.045 (1.000-1.030); Urobilinogen Urine Negative (Negative); WBC Urine Automated >50 /hpf (0-5)
[2024-06-30] MEDS: KETOROLAC TROMETHAMINE 15 MG/ML VIAL IV STA (15:31)
[2024-06-30] MEDS: cefTRIAXone SODIUM 2,000 MG/50 ML BAG IV STA (15:33)
[2024-06-30] MEDS ORDERED: KETOROLAC TROMETHAMINE 15 MG/ML VIAL IV PRN (15:56)
[2024-06-30] MEDS ORDERED: POLYETHYLENE (MIRALAX) 17 GM PACK PO PRN (15:56)
[2024-06-30] MEDS ORDERED: ONDANSETRON INJ 2 MG/ML 2 ML VIAL IV PRN (15:56)
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
[2024-06-30] MEDS ORDERED: WARFARIN SOD 5 MG TAB PO SCH (18:04)
--- NOTE | 2024-06-30 18:04 | Emergency Department Note ---
ED Visit Note I was consulted by the Advanced Practice Provider. I personally made/approved the management plan and take responsibility for the patient management. I performed a substantive portion of the visit. CT imaging of the abdomen pelvis was reviewed. There is evidence of chronic right hydronephrosis and UTI. Patient was medicated with IV ceftriaxone, hydrated with normal saline solution and given IV acetaminophen for his discomfort. He was also given 10 mg of IV Toradol. Laboratory work was reviewed and is fairly reassuring. Given the patient's weakness, UTI and ureteral obstruction, the patient will be evaluated by the hospitalist service for further management. He has expressed an understanding of the plan and agrees. .
[2024-06-30 19:24] LABS: INR 3.9 (0.9-1.1); Prothrombin Time 37.5 Seconds (9.0-12.0)
--- NOTE | 2024-06-30 19:41 | Urology Consultation ---
Date of Consultation June 30, 2024 Assessment & Plan (1) Hydronephrosis: The patient has been admitted on the hospitalist service. From a urologic perspective we recommend the following: It appears of the patient may have chronic hydronephrosis from some type of UPJ obstruction It also appears the patient has urinary tract infection. He has been placed on broad-spectrum antibiotics in the form of Rocephin which should continue and antibiotics can be tailored based on culture results The patient should be monitored for signs of urinary retention with bladder scans and if he is retaining urine straight catheterization or insertion of Aldrich catheter should be employed At the present time the patient is hemodynamically stableshe is normotensive and nontoxic-appearing. He is also afebrile. He does have a slight tachycardia. As the patient has just had a full meal at 7:00 will be preferable to hold on any operative intervention at this time If the patient should decompensate procedural intervention may need to be performed on a more emergent basis Please notify the urology service of any clinical status changes the patient may have (2) Acute UTI (urinary tract infection): Plan Attending note: Patient independently assessed, examined, interviewed, and evaluated. Agree with note as above. Patient's vitals and labs were all reviewed. Pertinent values in the HPI and plan section. Imaging was reviewed interpreted by myself. Agree with read. Vitals were reviewed. Discussed findings extensively with patient and family. Please see above for all records or within the patient's chart some. Reviewed with nurse practitioner as well as consulting physicians/team. Patient's complicated medical and surgical history was reviewed and summarized above. Patient's surgical, medical, social, and family history were all reviewed with pertinent values as above. Discussed patient's current diagnosis as well as concerns and issues. Reviewed different options moving forward. Discussed potential risks and benefits as well as possible options and concerns. Reviewed potential surgical options and interventions. Discussed potential issues and concerns related to intervention. Risk and benefits were discussed extensively with patient and any available family. Discussed potential risks related to anesthesia. Discussed risks of bleeding infection and injury. Plan to continue with supportive care broad-spectrum antibiotics. Will monitor overnight if patient develops worsening issues will likely need to proceed with intervention and possible stent placement. May be chronic related issues with developing pyelonephritis versus acute obstruction and worsening issues. History of Present Illness Reason for Consultation: Hydronephrosis on the right side Attending Physician: Reynaldo Hobbs History of Present Illness This is a 78-year-old male who presented to [facility] [address] and was admitted to the emergency department secondary to right-sided flank pain. He says that the pain began at approximately 3:00 this morning. He does report some nausea without vomiting but denies any abdominal pain. He does note that he is having some dysuria and some alternating periods of urinary frequency. He does not report any hematuria. Patient says he has not been febrile at home but he has had some shakes and chills. He does report he has a history of kidney stones in the past for which she has had a ureteral stent. He notes that his most recent oral intake was approximate 7:00 PM this evening when he had a full dinner. Since arrival to the hospital this patient has had labs and imaging which I independent reviewed. He did undergo a CT scan of the abdomen pelvis that showed moderate right-sided hydronephrosis with a normal caliber ureter. Interpreting radiologist felt that this represented chronic UPJ obstruction. There is also some thickening of the right renal collecting system suggestive of a cystitis or pyelitis. CBC revealed white blood cell count was elevated 11.7. Hemoglobin and hematocrit as well as the platelet count were normal. An INR was noted to be 3.9. Chemistry profile showed sodium and potassium as well as the BUN and creatinine were normal. Urinalysis showed cloudy urine which was negative for nitrites. He had pyuria with greater than 50 white blood cells per high-power field and 4+ bacteria. Leukocyte esterase was 2+ on the study. At the time of my interview the patient was resting in bed and he was in no distress. Allergies Allergy/AdvReac Type Severity Reaction Status Date / Time amoxicillin Allergy Intermediate rash Verified 06/30/24 15:40 Penicillins Allergy Intermediate rash Verified 06/30/24 15:40 Home Medications Medication Instructions Recorded Confirmed Type secukinumab 150 mg/mL subcutaneous 300 mg (2 mL) subcut .COMPLEX #6 mL 03/22/22 06/30/24 Rx pen injector (Cosentyx Pen 300 mg/2 Pens () Shower Chair #1 ea 10/04/22 06/12/24 Rx walker (Ultra-Light Rollator misc) #1 ea 10/04/22 06/12/24 Rx cholecalciferol (vitamin D3) 50 50 mcg PO DAILY 09/09/23 06/30/24 History mcg (2,000 unit) capsule cyanocobalamin (vitamin B-12) 1,000 mcg PO DAILY 09/09/23 06/30/24 History 1,000 mcg tablet multivitamin with minerals 1 cap PO DAILY 09/10/23 06/30/24 History lisinopril 5 mg tablet 5 mg PO DAILY #30 tabs 05/16/24 06/30/24 Rx gabapentin 300 mg capsule 300 mg PO TID #90 caps 05/30/24 06/30/24 Rx warfarin 5 mg tablet See Rx Instructions .Route .COMPLEX 05/30/24 06/30/24 History aripiprazole 5 mg tablet (Abilify) 5 mg PO DAILY 06/28/24 06/30/24 History duloxetine 60 mg capsule,delayed 60 mg PO QDL 06/28/24 06/30/24 History release pantoprazole 40 mg tablet,delayed 40 mg PO DAILY 06/28/24 06/30/24 History release alfuzosin 10 mg tablet,extended 10 mg PO QPM 06/30/24 06/30/24 History release 24 hr Patient History Medical History Prediabetes Low iron hx>iron infusions in past Short-term memory loss "mild" Psoriatic arthritis Lumbar radiculopathy Physical debility Sacroiliitis Chronic venous insufficiency 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 date years ago>reason for daily coumadin GERD (gastroesophageal reflux disease) Hx pulmonary embolism (~2015) reason for coumadin Lumbago Hx of pancreatitis Generalized osteoarthritis Hiatal hernia Osteoarthritis Scoliosis History of kidney stones History of colitis Hearing deficit Macular degeneration Traumatic open wound of left lower leg hit thompson on recliner causing a hematoma that started bleeding, was seen and treated at [facility] 07/15/22>healed currently Lumbar spondylosis Metabolic syndrome SNHL (sensorineural hearing loss) Asthma denies any inhaler use Benign esophageal stricture hx-resolved Surgical History History of anesthesia reaction August 2023>attemped robotic lap abdomen procedure aborted d/t BP dropping H/O abdominal surgery August 2023>lap abdominal procedure attempted in [facility] to correct pouch formation "BP dropped/procedure aborted" History of lithotripsy History of appendectomy History of tooth extraction History of esophagogastroduodenoscopy (EGD) (~06/2021) History of colonoscopy History of tooth extraction all teeth removed History of bilateral cataract extraction History of cardiac cath 1994? @ [facility]--no stents; no cardio. S/P tonsillectomy S/P hernia repair incisional hernia S/P gastroplasty 36 years ago>currently being seen to have this procedure corrected in a few months. S/P cholecystectomy Family History Family/Other Hearing loss Paternal cousins Mother Heart disease Hypertension Family history of reaction to anesthesia difficulty waking after surgery Other Myocardial infarction No family history of bleeding disorder Prostate cancer Denies family history of Ovarian cancer Breast cancer Colorectal cancer Social History Smoking Status: Former smoker Tobacco Type: Cigarettes Age Started Using Tobacco: 16; Age Quit Using Tobacco: 30; packs per day: 1; Cigarettes Per Day: QUIT ~45 + YRS AGO; Second Hand Exposure: Yes (in the past); Do You Dip or Chew Tobacco: No; Hx Alcohol Use: No Hx Substance Use: No Preferred Language: Georgian Communication Ability: Effective Visual Impairment: Limited Hearing Ability: Use of Hearing Aid 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 Beliefs That Will Affect Care: None marital status: Current Living Situation: Other Current Living Situation Comment: lives with 2 roommates current occupational status: retired How many Children do You have: 1 Other Information That Helps Us Care for You: No Feels Safe at Home: Yes Safety Concerns: Feels Safe At This Time Childhood Exposure to Second-Hand Smoke: Yes Diet: regular caffeine: No Dental Care, Regularly: No Physical Activity Frequency: Does not Exercise Seatbelt Use: always Sunscreen Use: Yes Assistive Devices: CPAP, Denture - Upper, Denture - Lower, Glasses and Walker Review of Systems Review of Systems: All systems reviewed & are unremarkable except as noted in HPI & below Physical Exam Constitutional: WD/WN, vitals as above Eyes: no conjunctival abnormality ENMT: Ears: no hearing impairment and no external ear abnormality Mouth: no oropharynx abnormality Neck: trachea midline Respiratory: normal respiratory effort; no respiratory distress and no labored breathing Cardiovascular: Rate/Rhythm: regular rate and regular rhythm Gastrointestinal (Abdomen): Abdomen is soft and rotund. It is nondistended. It is not rigid. There is no pain with palpation Musculoskeletal: No calf tenderness. Feet are warm and well-perfused Skin: no rashes Neurologic: moves all extremities Psychiatric: A+Ox3, euthymic affect Genitourinary: Slight CVA tenderness with percussion on the right. No CVA tenderness with percussion on the left Results & Data Vital Signs (Past 12 Hours) Vital Signs Temp Pulse Pulse Pulse Resp BP BP 06/30/24 19:33 36.4 C L 20 104/70 06/30/24 18:22 06/30/24 18:07 36.3 C L 98 H 18 125/72 06/30/24 17:00 95 H 18 125/70 06/30/24 16:00 96 H 18 127/74 06/30/24 15:00 100 H 18 118/65 06/30/24 13:35 117 H 06/30/24 13:21 108 H 22 163/79 H 06/30/24 11:38 36.6 C 107 H 18 114/72 Pulse Ox O2 Del Method 06/30/24 19:33 94 Room Air 06/30/24 18:22 Room Air 06/30/24 18:07 95 Room Air 06/30/24 17:00 95 06/30/24 16:00 94 Room Air 06/30/24 15:00 96 Room Air 06/30/24 13:35 06/30/24 13:21 94 Room Air 06/30/24 11:38 97 Room Air PG Care Time/CCT Total # of Minutes Spent Total Time Spent with Patient: Total time spent is greater than 50% in coordination of care (as documented) at patient's floor/unit and/or counseling patient: Coding Level of Care Code 16640 INT INP/OBS CARE 3/75MIN Diagnoses Hydronephrosis Q62.11 Hydronephrosis type: with ureteropelvic junction obstruction Acute UTI (urinary tract infection) N39.0 (1) Hydronephrosis Hydronephrosis type: with ureteropelvic junction obstruction Qualified Code(s): Q62.11 - Congenital occlusion of ureteropelvic junction
[2024-06-30] MEDS: ACETAMINOPHEN 325 MG TAB PO PRN (20:13)
[2024-06-30] MEDS: GABAPENTIN 300 MG CAP PO SCH (20:13)
[2024-06-30] MEDS: NYSTATIN POWDER 15GM BTL EXT SCH (20:13)
[2024-06-30] MEDS: TAMSULOSIN HCL 0.4 MG CAP PO SCH (20:13)
[2024-06-30] MEDS: LACTATED RINGER'S 500 ML IV ONE (22:48)
[2024-07-01 07:09] LABS: Basophils # (auto) 0.03 K/uL (0.00-0.20); Basophils % (auto) 0.3 %; Eosinophils # (auto) 0.06 K/uL (0.00-0.50); Eosinophils % (auto) 0.6 %; Hematocrit (blood only) 37.8 % (42.0-52.0); Hemoglobin 11.9 g/dl (14.0-18.0); Immature Granulocytes # (auto) 0.05 K/uL (0.01-0.20); Immature Granulocytes % (auto) 0.5 %; Lymphocytes # (auto) 1.07 K/uL (1.20-3.40); Lymphocytes % (auto) 9.9 %; Mean Corpuscular Hgb Conc 31.5 g/dL (32.0-36.0); Mean Corpuscular Volume 82.7 fL (80.0-100.0); Mean Platelet Volume 9.9 fL (9.4-12.4); Monocytes # (auto) 0.98 K/uL (0.11-0.59); Monocytes % (auto) 9.1 %; Neutrophils # (auto) 8.62 K/uL (1.40-6.50); Neutrophils % (auto) 79.6 %; Platelet Count 138 K/uL (130-400); RDW Coefficient of Variation 15.8 % (11.5-14.5); RDW Standard Deviation 47.3 fL (36.4-46.3); Red Blood Count 4.57 M/uL (4.70-6.10); White Blood Count 10.81 K/ul (4.8-10.8)
[2024-07-01 07:38] LABS: BUN Creatinine Ratio 12.7 (10-20); Calcium 8.5 mg/dl (8.6-10.3); Creatinine Clr Calc Pharmacy 47.9 ml/min; Potassium 4.5 mmol/L (3.5-5.1)
[2024-07-01 07:41] LABS: INR 3.5 (0.9-1.1); Prothrombin Time 34.2 Seconds (9.0-12.0)
[2024-07-01] MEDS: SODIUM CHLORIDE 0.9% 500 ML IV SCH (08:42)
[2024-07-01] MEDS: CHOLECALCIFEROL 25 MCG (1000 UNITS) TAB PO SCH (08:43)
[2024-07-01] MEDS: CYANOCOBALAMIN (B-12) 500 MCG TABLET PO SCH (08:44)
[2024-07-01] MEDS: ARIPiprazole 5 MG TAB PO SCH (08:44)
[2024-07-01] MEDS: PANTOprazole 40 MG TAB PO SCH (08:44)
[2024-07-01] MEDS: CEROVITE ADV FORMULA TAB PO SCH (08:44)
[2024-07-01] MEDS ORDERED: fentaNYL citrate PF 100 MCG/2 ML VIAL ONE (09:37)
[2024-07-01] MEDS ORDERED: ONDANSETRON INJ 2 MG/ML 2 ML VIAL ONE (09:38)
[2024-07-01] MEDS ORDERED: LIDOCAINE 2% 2 ML VIAL/AMP(20MG/ML) INFIL ONE (09:38)
[2024-07-01] MEDS ORDERED: PROPOFOL IV EMULSION 10 MG/ML 20 ML VIAL IV ONE ×2 (09:39)
--- NOTE | 2024-07-01 10:07 | Urology Progress Note ---
Date of Service July 01, 2024 Assessment & Plan (1) Hydronephrosis: (2) Acute UTI (urinary tract infection): (3) Venous ulcer of left leg: (4) Diabetic foot ulcer: (5) Constipation: (6) Increased urinary frequency: (7) Short-term memory loss: (8) Hx pulmonary embolism: Plan Patient with right hydronephrosis and perinephric stranding suspicious for pyelitis and pyelonephritis with possible worsening medical picture this a.m. Had developed fever overnight with hypotension and tachycardia. Patient had been eating admission. Remain n.p.o. overnight in case of worsening issues. With development of fever as well as hypotension did discuss need for possible intervention. Patient independently assessed, examined, interviewed, and evaluated. Patient's vitals currently 92/60 blood pressure with pulse of 89 respirations 18 temperature 37.1 and oxygen saturation 94% on room air. Tmax last 24 hours was 38.1. Patient is on broad-spectrum antibiotic coverage. Creatinine is at 1.97. This has increased significantly from yesterday and concerning for developing worsening HEATHER. White count is still elevated at 10.81 this morning: Mildly decreased from yesterday. PSA from the summer was 0.938. Patient's imaging was thoroughly reviewed interpreted by myself. Does have significant perinephric stranding with moderate hydronephrosis on right. Difficult to determine however perinephric stranding does appear to be acutely inflamed with likely concern of developing pyelonephritis. With worsening clinical picture vitals are in for worsening extensively options for early options forward. Discussed risk and benefits of surgical intervention. Discussed continued close supportive care and monitoring. Discussed continued hydration. Discussed utilization of broad-spectrum antibiotics until able to de-escalate based on cultures. Reviewed extensively options moving forward. Discussed possible surgical intervention. No stone was visualized on the imaging. Patient did have mild hydroureter was appreciated. Reviewed possible stricture versus UPJ obstruction versus other abnormality causing obstruction within the urinary system. Reviewed options for stent placement and cystoscopy. Risks and benefits discussed at length for procedure. These include bleeding, infection, injury to surrounding tissues or organs, and risks associated with anesthesia. Patient states understanding and agrees to proceed. Will sign consent and schedule. Plan for cystoscopy with right plan to proceed with urgent procedure due to suspicion of developing sepsis Admission and Anticipated Discharge Date Admission Date: June 30, 2024 Subjective Patient admitted with Hydronephrosis. And discomfort. Patient developed fever overnight. He had also developed hypotension and Tachycardia this morning. Worsening clinical signs and worsening/developing sepsis. Has been undergoing supportive care and therapy with oral medications, IV medications, IV fluids, and oral intake. Worsening clinical picture without considerable increase in pain or major issues. Has not developed severe vomiting or other issues. Has not experienced fever or chills. Patient made NPO last evening for possible intervention. Had last eaten dinner. Is tolerating fluids. Has noticed some frequency and urgency. Has not had severe pain in the back and flank. Does have occasional burning and irritation. No severe episodes or major changes. Has not passed a large amount of blood or debris Review of Systems Review of Systems: All systems reviewed & are unremarkable except as noted in HPI & below Physical Exam Physical Exam: General: Alert in no acute distress. Febrile overnight. HEENT: Normocephalic Atraumatic. Inspection normal. Cranial Nerves 2-12 Grossly intact. Normal inspection of face. Normal inspection of neck. Psychologic: Normal affect. Respiratory: Nonlabored. No use of accessory muscles. No tachypnea or dyspnea. Cardiovascular: Mild tachycardia Skin: [place] and Dry. No rashes or visible lesions. Extremities/Lymphatics: No edema Abdomen: Soft Non-distended. No rebound or guarding. Results & Data Vital Signs (Past 12 Hours) Vital Signs Temp Pulse Resp BP Pulse Ox O2 Del Method 07/01/24 08:00 Room Air 07/01/24 07:43 37.1 C 89 18 92/60 L 94 Room Air 06/30/24 22:05 38.1 C H 116 H 16 119/71 95 Room Air PG Care Time/CCT Total # of Minutes Spent Total Time Spent with Patient: Total time spent is greater than 50% in coordination of care (as documented) at patient's floor/unit and/or counseling patient: Coding Level of Care Code 96874 SUB INP/OBS CARE 3/50MIN Diagnoses Hydronephrosis Q62.11 Hydronephrosis type: with ureteropelvic junction obstruction Acute UTI (urinary tract infection) N39.0 Venous ulcer of left leg I83.029; L97.929 Diabetic ulcer of toe of right foot associated with type 2 diabetes mellitus, limited to breakdown of skin E11.621; L97.511 Diabetes mellitus type: type 2 Diabetic foot ulcer location: toe Laterality: right Non-pressure ulcer stage: limited to breakdown of skin Constipation K59.00 Increased urinary frequency R35.0 Short-term memory loss R41.3 Hx pulmonary embolism Z86.711 (1) Hydronephrosis Hydronephrosis type: with ureteropelvic junction obstruction Qualified Code(s): Q62.11 - Congenital occlusion of ureteropelvic junction (4) Diabetic foot ulcer Diabetes mellitus type: type 2 Diabetic foot ulcer location: toe Laterality: right Non-pressure ulcer stage: limited to breakdown of skin Qualified Code(s): E11.621 - Type 2 diabetes mellitus with foot ulcer; L97.511 - Non- pressure chronic ulcer of other part of right foot limited to breakdown of skin
--- NOTE | 2024-07-01 10:23 | Anesthesiology Consultation ---
Date of Service July 01, 2024 Assessment & Plan Chart Review Chart Review: Acceptable Risk for Surgery and Patient NOT seen in Pre Admission Testing Consults Requested none ASA [id number] Proposed Anesthesia Anesthesia Type: MAC History Surgery Operation Date: 07/01/24 10:00 Proposed Procedures p Cystoscopy - Tomi Irving DO s Ureteral Stent Insertion/Removal(Right) - Tomi Irving DO Height/Weight Height: 6 ft 1 in Weight: 149.9 kg Allergies Allergy/AdvReac Type Severity Reaction Status Date / Time amoxicillin Allergy Intermediate rash Verified 06/30/24 15:40 Penicillins Allergy Intermediate rash Verified 06/30/24 15:40 Medications Home Medications Medication Instructions Recorded Confirmed Last Taken secukinumab 150 mg/mL subcutaneous 300 mg (2 mL) subcut .COMPLEX #6 mL 03/22/22 06/30/24 06/28/24 pen injector (Cosentyx Pen 300 mg/2 Pens () Shower Chair #1 ea 10/04/22 06/12/24 Unknown walker (Ultra-Light Rollator misc) #1 ea 10/04/22 06/12/24 Unknown cholecalciferol (vitamin D3) 50 50 mcg PO DAILY 09/09/23 06/30/24 06/30/24 mcg (2,000 unit) capsule cyanocobalamin (vitamin B-12) 1,000 mcg PO DAILY 09/09/23 06/30/24 06/30/24 1,000 mcg tablet multivitamin with minerals 1 cap PO DAILY 09/10/23 06/30/24 06/30/24 lisinopril 5 mg tablet 5 mg PO DAILY #30 tabs 05/16/24 06/30/24 06/30/24 gabapentin 300 mg capsule 300 mg PO TID #90 caps 05/30/24 06/30/24 06/30/24 warfarin 5 mg tablet See Rx Instructions .Route .COMPLEX 05/30/24 06/30/24 06/29/24 aripiprazole 5 mg tablet (Abilify) 5 mg PO DAILY 06/28/24 06/30/24 Unknown duloxetine 60 mg capsule,delayed 60 mg PO QDL 06/28/24 06/30/24 06/29/24 release pantoprazole 40 mg tablet,delayed 40 mg PO DAILY 06/28/24 06/30/24 06/30/24 release alfuzosin 10 mg tablet,extended 10 mg PO QPM 06/30/24 06/30/24 06/29/24 release 24 hr Active Medications Generic Name Dose Route Start Last Admin Trade Name Chalino PRN Reason Stop Dose Admin Acetaminophen 650 mg 06/30/24 15:56 07/01/24 04:27 Acetaminophen 325 Mg Tab PO 07/30/24 15:55 650 mg Q4H PRN Administration pain/fever Aripiprazole 5 mg 07/01/24 09:00 07/01/24 08:44 Aripiprazole 5 Mg Tab PO 07/31/24 08:59 5 mg DAILY LEV Administration Cyanocobalamin 1,000 mcg 07/01/24 09:00 07/01/24 08:44 Cyanocobalamin (B-12) 500 Mcg Tablet PO 07/31/24 08:59 1,000 mcg DAILY LEV Administration Gabapentin 300 mg 06/30/24 21:00 07/01/24 08:44 Gabapentin 300 Mg Cap PO 07/30/24 20:59 300 mg TID LEV Administration Sodium Chloride 500 mls @ 80 mls/hr 07/01/24 08:15 07/01/24 08:42 Nss IV 07/01/24 14:29 80 mls/hr .Q6H15M LEV Administration Multivitamins/Minerals 1 tab 07/01/24 09:00 07/01/24 08:44 Cerovite Adv Formula Tab PO 07/31/24 08:59 1 tab DAILY LEV Administration Nystatin 1 appln 06/30/24 21:00 07/01/24 08:43 Nystatin Powder 15gm Btl EXT 07/30/24 20:59 1 appln BID LEV Administration Pantoprazole Sodium 40 mg 07/01/24 09:00 07/01/24 08:44 Pantoprazole 40 Mg Tab PO 07/31/24 08:59 40 mg DAILY LEV Administration Tamsulosin HCl 0.4 mg 06/30/24 21:00 06/30/24 20:13 Tamsulosin Hcl 0.4 Mg Cap PO 07/30/24 20:59 0.4 mg QPM LEV Administration Vitamin D 50 mcg 07/01/24 09:00 07/01/24 08:43 Cholecalciferol 25 Mcg (1000 Units) Tab PO 07/31/24 08:59 50 mcg DAILY LEV Administration NPO Date Last Intake of Fluids: 07/01/24 Time Last Intake of Fluids: 08:45 Last Intake of Fluids Comment: sip of water with AM meds Date Last Intake of Solids: 06/30/24 Time Last Intake of Solids: 19:00 Past Medical History Medical History Prediabetes Low iron hx>iron infusions in past Short-term memory loss "mild" Psoriatic arthritis Lumbar radiculopathy Physical debility Sacroiliitis Chronic venous insufficiency Psoriasis Hypertension care home current use of 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 Degenerative arthritis of knee, bilateral Depression Sleep apnea does not use device BPH loc w urin obs/LUTS Hx of deep venous thrombosis ? date years ago>reason for daily coumadin GERD (gastroesophageal reflux disease) Hx pulmonary embolism (~2015) reason for coumadin Lumbago Hx of pancreatitis Generalized osteoarthritis Hiatal hernia Osteoarthritis Scoliosis History of kidney stones History of colitis Hearing deficit Macular degeneration Traumatic open wound of left lower leg hit thompson on recliner causing a hematoma that started bleeding, was seen and treated at [facility] 07/15/22>healed currently Lumbar spondylosis Metabolic syndrome SNHL (sensorineural hearing loss) Asthma denies any inhaler use Benign esophageal stricture hx-resolved Past Family History Family History Family/Other Hearing loss Paternal cousins Mother Heart disease Hypertension Family history of reaction to anesthesia difficulty waking after surgery Other Myocardial infarction No family history of bleeding disorder Prostate cancer Denies family history of Ovarian cancer Breast cancer Colorectal cancer Past Surgical History Surgical History History of anesthesia reaction August 2023>attemped robotic lap abdomen procedure aborted d/t BP dropping H/O abdominal surgery August 2023>lap abdominal procedure attempted in [facility] to correct pouch formation "BP dropped/procedure aborted" History of lithotripsy History of appendectomy History of tooth extraction History of esophagogastroduodenoscopy (EGD) (~06/2021) History of colonoscopy History of tooth extraction all teeth removed History of bilateral cataract extraction History of cardiac cath 1994? @ [facility]--no stents; no cardio. S/P tonsillectomy S/P hernia repair incisional hernia S/P gastroplasty 36 years ago>currently being seen to have this procedure corrected in a few months. S/P cholecystectomy Social History Smoking Status: Former smoker tobacco type: cigarettes Smoking cigarettes per day: QUIT ~45 + YRS AGO Do You Dip or Chew Tobacco: No Hx Alcohol Use: No Hx Substance Use: No substance use type: does not use Physical Exam Vital Signs Last Vital Signs Temp 37.1 C 07/01/24 07:43 Pulse 89 07/01/24 07:43 Resp 18 07/01/24 07:43 BP 92/60 L 07/01/24 07:43 Pulse Ox 94 07/01/24 07:43 O2 Del Method Room Air 07/01/24 08:00 Testing Laboratory Results 07/01/24 06:31 07/01/24 06:31 PT 34.2 Seconds (9.0-12.0) H 07/01/24 06:31 INR 3.5 (0.9-1.1) H 07/01/24 06:31 Urine Color [place] 06/30/24 14:42 Urine Appearance Cloudy (Clear) A 06/30/24 14:42 Urine pH 7.0 (4.5-7.5) 06/30/24 14:42 Ur Specific [place] > 1.045 (1.000-1.030) H 06/30/24 14:42 Urine Protein 3+ (Negative) H 06/30/24 14:42 Urine Glucose (UA) Negative (Negative) 06/30/24 14:42 Urine Ketones Negative (Negative) 06/30/24 14:42 Urine Nitrite Negative (Negative) 06/30/24 14:42 Ur Leukocyte Esterase 2+ (Negative) H 06/30/24 14:42 Urine WBC (Auto) >50 /hpf (0-5) H 06/30/24 14:42 Urine RBC (Auto) >20 /hpf (0-2) H 06/30/24 14:42 U Hyaline Cast (Auto) 0-2 /lpf (0-2) 06/30/24 14:42 U Epithel Cells (Auto) 0-2 /hpf (0-2) 06/30/24 14:42 Urine Bacteria (Auto) 4+ (None Seen) H 06/30/24 14:42 06/30/24 14:42 Urine Culture - Preliminary Urine,Clean Catch Escherichia coli
[2024-07-01] MEDS ORDERED: ATROPINE SULFATE 0.1 MG/ML 10ML SYR IV PRN (10:29)
[2024-07-01] MEDS ORDERED: ONDANSETRON INJ 2 MG/ML 2 ML VIAL IV PRN (10:29)
[2024-07-01] MEDS ORDERED: fentaNYL citrate PF 100 MCG/2 ML VIAL IV PRN (10:29)
[2024-07-01] MEDS ORDERED: ePHEDrine sulfate 50 MG/ML AMP IV PRN (10:29)
[2024-07-01] MEDS: DIATRIZOATE MEGLUMINE 30% 100ML VIAL INSTIL ONE (11:21)
--- NOTE | 2024-07-01 11:35 | Fluoroscopy Report ---
FL retrograde includes kub CLINICAL HISTORY: RIGHT RETROGRADE, STENT COMPARISON STUDY: CT of the abdomen and pelvis June 30, 2024. FLUOROSCOPY TIME: 3 minutes and 52 seconds. Ka,r: 197.22 mGy FLUOROSCOPIC IMAGES: 2 FINDINGS: Fluoroscopy was provided during right retrograde pyelogram and right ureteral stent inserti on. The stent is well positioned. Right hydronephrosis is again noted. IMPRESSION: Fluoroscopy provided during right retrograde pyelogram and right ureteral stent insertio n. ACT 112: Negative or not required by law. Electronically signed by: Félix Delatorre M.D. 07/01/2024 11:32 AM
--- NOTE | 2024-07-01 11:36 | Operative Report ---
PG Post Operative Report Pre & Post Diagnosis Operation Date: 07/01/24 10:00 Pre-Op Diagnosis: Right Pylonephritis, Right Hydronephritis Post-Op Diagnosis: Right Pylonephritis, Right Hydronephritis I identified the patient and participated in the time-out.: Yes Procedure Operation Date: 07/01/24 10:00 Actual Procedures Cystoscopy with irrigation and evacuation of bladder. Right Retrograde Pyelogram, Right Aspiration, Right Ureteral Dilation x 3, and Insertion of Stent right(Right) - Tomi Irving DO Surgeon Tomi Irving, II, DO Water Fitness Instructor None Estimated Blood Loss 1 Findings Consistent with Post-Op Diagnosis Formation and irritation of the bladder likely from UTI. Large amount of debris in the base of bladder. Significant hydronephrosis with contrast still within the right renal pelvis. Numerous areas of stricture within the ureter including stricture of the UO, distal ureter, and a severe stricture of the proximal ureter and UPJ. Dilation of the distal and you well without major issue. Significant issues with dilation at the UPJ secondary to severity of stricture. Severely purulent urine from right renal pelvis. Right stent placed in good position. Specimens Urine right kidney Drains 6 Fr Multilength 18 Afghan coud catheter Anesthesia Type MAC Complications none Disposition Disposition: Recovery Room Indications Patient with obstruction. Risks and benefits discussed at length. Description of Procedure Patient was consented and brought back to the operating room. Patient was placed under anesthesia in the supine position and moved to the dorsal lithotomy position. Patient was prepped and draped in the regular sterile fashion. A time out was completed. A 30degree Cystoscope was placed into the bladder and the entire bladder was examined. The UO's were identified. There was a large amount of debris within the base of the bladder. This had to be irrigated and evacuated. Once irrigated and evacuated the UOs were able to be identified. The bladder was found to be severely inflamed and irritated likely from recent UTI infection. On fluoroscopy there was contrast still within the renal pelvis likely from the recent CT scan. Renal pelvis appeared to be dilated and hydronephrotic. There was no contrast seen going down the ureter. The UO was cannulized with a catheter and a retrograde pyelogram was completed. The ureter was found to have multiple areas of stricture. There was a significant narrowing well a significant narrowing in the severe narrowing at the J/proximal ureter for approximately a centimeter going down the ureter. A wire was then placed. The open-ended catheter was attempted to be placed past the areas of stricture. They were able to bypassed the UO and distal stricture however they would not advance past the proximal stricture. The distal stricture and UO stricture were dilated. A dilation was attempted on the proximal ureter. Multiple attempts to dilate the stricture were attempted. A second wire was placed in order to attempt further dilation of the proximal ureter. After dilating the area was able to be dilated enough that the 5 Afghan open-ended catheter was able to advance into the renal it would not advance much further than the UPJ region. Urine was able to be aspirated from the renal pelvis. No major contrast was seen and going from the ureter into the renal pelvis prior to this dilation. Urine was sent for culture. A retrograde pyelogram was then completed of the renal pelvis. An attempt was made to dilate the area further however this would not advance past that point. Both wires did remain in good position. At this point one of the wires was removed With the single wire in place, a 6 Fr Double J stent was placed. This was backloaded through the scope and the stent was placed under direct visualization. It was confirmed with fluoroscopy. The stent was able to advan ce into the renal pelvis. With the stent in place, the bladder was emptied. A large amount of debris was noted to be draining from the right side. Urine was also mildly bloody likely from the dilations. The scope was removed. A 18 Afghan coud catheter was then placed. It was set to drainage. The patient was cleaned, aroused from anesthesia, and transferred to the pacu in stable condition having tolerated the procedure well with no complications. I was present and participated in all aspects of the procedure. The patient will be monitored in the PACU until transferred. A catheter for 1 to 2 days. Will likely need to maintain for approximately 1 to 2 weeks until completion of antibiotic course. Will likely need to consider moving forward with more formal ureteroscopy and dilation versus endopyelotomy due to severe stricture of the proximal ureter and UPJ. I attest to the content of the Intraoperative Record and any orders documented therein. Any exceptions are noted below.
--- NOTE | 2024-07-01 12:07 | Anesthesiology Progress Note ---
Date of Service July 01, 2024 Anesthesia Post Procedure Vital Signs Vital Signs: Temp Pulse Pulse Pulse Resp BP Pulse Ox 07/01/24 12:00 78 16 118/46 L 92 07/01/24 11:50 78 19 105/53 L 97 07/01/24 11:40 81 16 111/56 L 97 07/01/24 11:33 37.1 C 76 12 128/64 99 07/01/24 11:04 86 136/55 L 07/01/24 08:00 07/01/24 07:43 37.1 C 89 18 92/60 L 94 06/30/24 22:05 38.1 C H 116 H 16 119/71 95 06/30/24 20:00 06/30/24 19:33 36.4 C L 20 104/70 94 06/30/24 18:22 06/30/24 18:07 36.3 C L 98 H 18 125/72 95 06/30/24 17:00 95 H 18 125/70 95 06/30/24 16:00 96 H 18 127/74 94 06/30/24 15:00 100 H 18 118/65 96 06/30/24 13:35 117 H 06/30/24 13:21 108 H 22 163/79 H 94 O2 Del Method O2 Flow Rate 07/01/24 12:00 Room Air 0 07/01/24 11:50 Room Air 0 07/01/24 11:40 Oxymask 4 07/01/24 11:33 Oxymask 8 07/01/24 11:04 07/01/24 08:00 Room Air 07/01/24 07:43 Room Air 06/30/24 22:05 Room Air 06/30/24 20:00 Room Air 06/30/24 19:33 Room Air 06/30/24 18:22 Room Air 06/30/24 18:07 Room Air 06/30/24 17:00 06/30/24 16:00 Room Air 06/30/24 15:00 Room Air 06/30/24 13:35 06/30/24 13:21 Room Air Pain Intensity Right Back: Pain Intensity: 4 Transfer of Care Handoff Completed per policy Notes Mental Status: alert / awake / arousable Patient Amnestic to Procedure: Yes Nausea / Vomiting: adequately controlled Pain: adequately controlled Airway Patency, RR, SpO2: stable & adequate BP & HR: stable & adequate Hydration State: stable & adequate Anesthetic Complications: no major complications apparent and Pt Satisfied with anesthetic care
[2024-07-01] MEDS: DULoxetine HCL 60 MG CAP PO SCH (12:34)
--- NOTE | 2024-07-01 14:53 | Hospitalist Progress Note ---
Date of Service July 01, 2024 Assessment & Plan (1) Urinary tract infection: (2) Weakness: (3) [facility] current use of 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: (4) Prediabetes: Plan This is a 78 year old gentleman with past medical history of DM, HTN, JULIETTE who presented to the ED on 06/30 for flank pain. #UTI Urinalysis + for UTI, UC prelim E. Coli, await sensitivity report. UC from OR (07/01) pending. CTAP w/ moderate right hydronephrosis, suggesting chronic UPJ obstruction. suggestive of cystitis & pyelitis CBC w/ downtrending leukocytosis BMP w/ increase of creatinine to 1.97 s/p IV Rocephin in ED, continue upon admission. Urology consulted -> s/p cystoscopy w/ stent placement with Dr. Cowan 07/01. Will likely need to keep catheter in for 1-2 days and maintain stent for 1-2 weeks until completion of abx course. 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 Tylenol/Toradol for pain prn. #Weakness secondary to above PT/OT consulted, appreciate recommendations. Patient uses walker at baseline, is to undergo knee replacement 07/24. #Hx of DVT On warfarin therapy outpatient. INR baseline 2-3 Warfarin held 07/01 due to elevated INR of 3.9, downtrended to 3.5 on 07/01, can likely resume 07/02 to maintain therapeutic range. Follows w/ anticoagulation clinic Chronic conditions: HTN: Lisinopril on hold due to HTN, will resume when able. DM: not on meds, A1c 05/2024 6% Morbid Obestiy, BMI 43 DVT prophylaxis: Home Warfarin dose Code: full Admission and Anticipated Discharge Date Admission Date: June 30, 2024 Subjective Patient seen and examined this morning. Overnight patient became febrile, tachycardic, and hypotensive. He was given 1L of fluids. This morning patient reported that he felt tired. He denied any pain or issues with urinating. Stated he was able to make it to the bathroom to urinate and not have incontinence. Physical Exam Constitutional: WD/WN, vitals as above Eyes: PERRL, conjunctivae normal, anicteric sclerae Respiratory: breathing unlabored Cardiovascular: well perfused Psychiatric: A+Ox3, euthymic affect Results & Data Results & Data Vital Signs (Past 12 Hours) Vital Signs Temp Pulse Pulse Resp BP Pulse Ox O2 Del Method 07/01/24 14:20 95 Nasal Cannula 07/01/24 14:19 36.7 C 104 H 18 110/68 90 Room Air 07/01/24 13:30 36.8 C 99 H 18 112/68 94 Room Air 07/01/24 13:00 37.1 C 100 H 20 111/75 95 Room Air 07/01/24 12:30 36.6 C 78 16 108/54 L 94 Room Air 07/01/24 12:10 36.8 C 72 16 102/50 L 97 Room Air 07/01/24 12:00 78 16 118/46 L 92 Room Air 07/01/24 11:50 78 19 105/53 L 97 Room Air 07/01/24 11:40 81 16 111/56 L 97 Oxymask 07/01/24 11:33 37.1 C 76 12 128/64 99 Oxymask 07/01/24 11:04 86 136/55 L 07/01/24 08:00 Room Air 07/01/24 07:43 37.1 C 89 18 92/60 L 94 Room Air O2 Flow Rate 07/01/24 14:20 2 07/01/24 14:19 07/01/24 13:30 07/01/24 13:00 07/01/24 12:30 07/01/24 12:10 0 07/01/24 12:00 0 07/01/24 11:50 0 07/01/24 11:40 4 07/01/24 11:33 8 07/01/24 11:04 07/01/24 08:00 07/01/24 07:43 PG Care Time/CCT Total # of Minutes Spent Total Time Spent with Patient: Total time spent is greater than 50% in coordination of care (as documented) at patient's floor/unit and/or counseling patient: Coding Level of Care Code 34745 SUB INP/OBS CARE 3/50MIN Diagnoses Urinary tract infection N39.0 Weakness R53.1 long term 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
[2024-07-01] MEDS: cefTRIAXone SODIUM 2,000 MG/50 ML BAG IV SCH (15:01)
[2024-07-01] MEDS ORDERED: WARFARIN SOD 5 MG TAB PO SCH (16:00)
[2024-07-01] MEDS: WARFARIN SOD 5 MG TAB PO SCH (16:17)
[2024-07-02 06:34] LABS: Basophils # (auto) 0.02 K/uL (0.00-0.20); Basophils % (auto) 0.2 %; Eosinophils # (auto) 0.14 K/uL (0.00-0.50); Eosinophils % (auto) 1.7 %; Hemoglobin 11.9 g/dl (14.0-18.0); Immature Granulocytes # (auto) 0.03 K/uL (0.01-0.20); Immature Granulocytes % (auto) 0.4 %; Lymphocytes # (auto) 0.67 K/uL (1.20-3.40); Lymphocytes % (auto) 7.9 %; Mean Corpuscular Hemoglobin 26.4 pg (25.0-34.0); Mean Corpuscular Hgb Conc 31.3 g/dL (32.0-36.0); Mean Corpuscular Volume 84.4 fL (80.0-100.0); Mean Platelet Volume 10.3 fL (9.4-12.4); Monocytes # (auto) 0.64 K/uL (0.11-0.59); Monocytes % (auto) 7.6 %; Neutrophils # (auto) 6.95 K/uL (1.40-6.50); Neutrophils % (auto) 82.2 %; Platelet Count 128 K/uL (130-400); RDW Coefficient of Variation 15.8 % (11.5-14.5); RDW Standard Deviation 48.6 fL (36.4-46.3); White Blood Count 8.45 K/ul (4.8-10.8)
[2024-07-02 06:59] LABS: INR 2.3 (0.9-1.1); Prothrombin Time 23.2 Seconds (9.0-12.0)
[2024-07-02 07:01] LABS: BUN Creatinine Ratio 16.3 (10-20); Calcium 8.6 mg/dl (8.6-10.3); Creatinine Clr Calc Pharmacy 54.9 ml/min; Potassium 4.3 mmol/L (3.5-5.1)
[2024-07-02] MEDS: lisinopril 5 MG TAB PO SCH (09:14)
--- NOTE | 2024-07-02 09:48 | Urology Progress Note ---
Date of Service July 02, 2024 Assessment & Plan (1) Hydronephrosis: (2) Acute UTI (urinary tract infection): Plan: - Pt POD#1 s/p Cystoscopy with irrigation and evacuation of bladder; Right Retrograde Pyelogram, Right Aspiration, Right Ureteral Dilation x 3, and Insertion of Stent right - Afebrile, hemodynamically stable - Lab work reviewed - creatinine 1.72, WBC 8.45, Hgb 11.9 - Urine culture 06/30 with E. coli - Urine culture from kidney is pending - Tolerating right ureteral stent with minimal bother - Continue supportive care and medical management per hospital medicine - Can remove Aldrich catheter for voiding trial today or tomorrow - Okay to d/c from perspective when medically stable - Recommend d/c with course of appropriate PO antibiotics per culture, Tamsulosin, prn Pyridium and prn pain medication for stent management - Expected clinical course reviewed, all questions answered - Will arrange outpatient follow-up with our service to set up further management - will sign off, please contact our service with any additional questions or concerns Admission and Anticipated Discharge Date Admission Date: June 30, 2024 Subjective Patient seen and examined at bedside this morning. He is awake and sitting up in bed. Reports headache and some chest pain after eating breakfast. RN at bedside to do EKG. He reports mild back pain. Aldrich intact. No fever or chills. Review of Systems Constitutional: as per Subjective / HPI Genitourinary: + as per Subjective / HPI Physical Exam Constitutional: + obese; no acute distress Respiratory: normal respiratory effort; no respiratory distress and no labored breathing Gastrointestinal (Abdomen): Inspection/Auscultation: abdomen normal to inspection Musculoskeletal: Head/Neck/Chest: normocephalic Neurologic: moves all extremities and awake Psychiatric: Orientation: alert and oriented x 3 Genitourinary: Aldrich intact draining yellow urine with slight blood tinge Results & Data Vital Signs (Past 12 Hours) Vital Signs Temp Pulse Pulse Resp BP Pulse Ox O2 Del Method 07/02/24 08:03 36.7 C 72 15 118/68 93 Room Air 07/02/24 03:00 36.9 C 81 16 115/69 95 Room Air 07/01/24 23:06 37.1 C 92 H 18 109/61 95 Room Air PG Care Time/CCT Total # of Minutes Spent Total Time Spent with Patient: Total time spent is greater than 50% in coordination of care (as documented) at patient's floor/unit and/or counseling patient: Coding Level of Care Code 29326 SUB INP/OBS CARE 05/05MIN Diagnoses Hydronephrosis Q62.11 Hydronephrosis type: with ureteropelvic junction obstruction Acute UTI (urinary tract infection) N39.0 (1) Hydronephrosis Hydronephrosis type: with ureteropelvic junction obstruction Qualified Code(s): Q62.11 - Congenital occlusion of ureteropelvic junction
--- NOTE | 2024-07-02 14:02 | Electrocardiogram Report ---
Test Reason : Blood Pressure : */* mmHG Vent. Rate : 115 BPM Atrial Rate : 115 BPM P-R Int : 192 ms QRS Dur : 76 ms QT Int : 302 ms P-R-T Axes : 36 -4 44 degrees QTcB Int : 417 ms Sinus tachycardia Low voltage QRS Borderline ECG When compared with ECG of 31-May-2024 03:38, Premature ventricular complexes are no longer Present Premature supraventricular complexes are no longer Present Confirmed by Liam Orellana ([id number]) on 07/02/2024 2:02:09 PM Referred By: REFERRED SELF Confirmed By: Liam Orellana
--- NOTE | 2024-07-02 15:27 | Hospitalist Progress Note ---
Date of Service July 02, 2024 Assessment & Plan (1) Urinary tract infection: (2) Weakness: (3) senior living current use of 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: (4) Prediabetes: Plan This is a 78 year old gentleman with past medical history of DM, HTN, JULIETTE who presented to the ED on 06/30 for flank pain. #UTI Urinalysis + for UTI, UC E. Coli UC from OR (07/01) negative. CTAP w/ moderate right hydronephrosis, suggesting chronic UPJ obstruction. suggestive of cystitis & pyelitis CBC w/ resolution of leukocytosis. Hgb stable at 11.9. BMP w/ decrease of creatinine to 1.72 Continue IV Rocephin. Urology consulted -> s/p cystoscopy w/ stent placement with Dr. Cowan 07/01. Will likely need to keep catheter in for 1-2 days and maintain stent for 1-2 weeks until completion of abx course. 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 Per urology, ok to remove diaz catheter 07/03 for voiding trial and he is okay for discharge from their standpoint. Tylenol/Toradol for pain prn. #Weakness secondary to above PT/OT consulted, appreciate recommendations. Patient uses walker at baseline, is to undergo knee replacement 07/24. #Hx of DVT On warfarin therapy outpatient. INR baseline 2-3 Warfarin on hold until gross hematuria resolves. Follows w/ anticoagulation clinic Chronic conditions: HTN: Lisinopril on hold due to HTN, will resume when able. DM: not on meds, A1c 05/2024 6% Morbid Obesity, BMI 43 DVT prophylaxis: hold in setting of gross hematuria. Code: full Admission and Anticipated Discharge Date Admission Date: June 30, 2024 Subjective Patient seen and examined this morning. patient reports that he was tired today and nauseous. He had an episode of chest pain this morning, 6/10 in nature. EKG was obtained which was normal sinus rhythm. He then stated he burped a few times and the pain went away. Denies any urinary complaints. gross hematuria in patient's catheter bag. Physical Exam Constitutional: WD/WN, vitals as above Eyes: PERRL, conjunctivae normal, anicteric sclerae Respiratory: breathing unlabored Cardiovascular: well perfused Gastrointestinal (Abdomen): normal bowel sounds, soft, nontender, no h epatosplenomegaly Psychiatric: A+Ox3, euthymic affect Results & Data Results & Data Vital Signs (Past 12 Hours) Vital Signs Temp Pulse Resp BP Pulse Ox O2 Del Method 07/02/24 13:44 36.7 C 73 15 106/60 91 Room Air 07/02/24 08:03 36.7 C 72 15 118/68 93 Room Air 07/02/24 08:00 Room Air PG Care Time/CCT Total # of Minutes Spent Total Time Spent with Patient: Total time spent is greater than 50% in coordination of care (as documented) at patient's floor/unit and/or counseling patient: Coding Level of Care Code 10552 SUB INP/OBS CARE 2/35MIN Diagnoses Urinary tract infection N39.0 Weakness R53.1 senior living current use of 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 Z79.01 Prediabetes R73.03
[2024-07-03 08:56] LABS: Hematocrit (blood only) 39.9 % (42.0-52.0); Hemoglobin 12.2 g/dl (14.0-18.0); Mean Corpuscular Hemoglobin 25.8 pg (25.0-34.0); Mean Corpuscular Hgb Conc 30.6 g/dL (32.0-36.0); Mean Corpuscular Volume 84.5 fL (80.0-100.0); Mean Platelet Volume 9.9 fL (9.4-12.4); Platelet Count 148 K/uL (130-400); RDW Coefficient of Variation 15.2 % (11.5-14.5); RDW Standard Deviation 47.1 fL (36.4-46.3); Red Blood Count 4.72 M/uL (4.70-6.10); White Blood Count 5.42 K/ul (4.8-10.8)
[2024-07-03 09:15] LABS: INR 1.4 (0.9-1.1); Prothrombin Time 15.2 Seconds (9.0-12.0)
[2024-07-03 09:30] LABS: Calcium 9.1 mg/dl (8.6-10.3); Potassium 3.9 mmol/L (3.5-5.1)
[2024-07-03 09:36] LABS: BUN Creatinine Ratio 16.2 (10-20); Creatinine Clr Calc Pharmacy 72.6 ml/min
--- NOTE | 2024-07-03 18:01 | Hospitalist Progress Note ---
Date of Service July 03, 2024 Assessment & Plan (1) Urinary tract infection: (2) Weakness: (3) residential current use of 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: (4) Prediabetes: Plan This is a 78 year old gentleman with past medical history of DM, HTN, JULIETTE who presented to the ED on 06/30 for flank pain. Urine culture grew E. coli with resistance to ampicillin and intermediate resistance to cefazolin. CT A/P revealed moderate right sided hydronephrosis, suggesting chronic UPJ obstruction, also with urothelial thickening of right collecting system suggestive of cystitis and pyelitis. #UTI Urology consulted s/p cystoscopy with right ureteral stent placement by Dr. Irving on 07/01. Plans to maintain stent for 1-2 weeks until completion of antibiotic course, then we will consider more formal ureteroscopy and dilation versus endopyelotomy due to severe stricture of proximal ureter and UPJ Aldrich catheter removed 07/03 and passed voiding trial with clear yellow urine Downgraded antibiotic to cefdinir 300 mg PO BID HEATHER now resolved Tylenol/Toradol for pain prn #Weakness Secondary to above Patient uses walker at baseline, is to undergo knee replacement 07/24 PT/OT recommend short-term rehab. Patient is not safe to return home per PT #Hx of DVT On warfarin therapy outpatient. INR baseline 2-3 Warfarin resumed 07/03 his hematuria resolved Follows with anticoagulation clinic Chronic conditions: HTN: Lisinopril on hold due to hypotension, will resume when able. DM: not on meds, A1c 05/2024 6% Morbid Obesity, BMI 43 DVT prophylaxis: Warfarin now resumed Code: full Dispo: Therapy recommending short-term rehab. Referrals made by CM Downgraded antibiotics Resumed warfarin Removed Aldrich Admission and Anticipated Discharge Date Admission Date: June 30, 2024 Subjective Patient seen and evaluated bedside. He reports feeling better but feels "a bit foggy." He denies any discomfort or pain from his ureteral stent. He reports a good appetite. He notes he feels unsteady with ambulation and wants rehab placement, as when he is returned home from the hospital without rehab previously he has had multiple falls at home. We discussed removing his Aldrich catheter to perform a voiding trial and downgrading to oral antibiotics. No additional complaints or concerns at this time. Physical Exam Physical Exam: General: No acute distress, nondiaphoretic, well-developed, well-nourished. Cardiac: Regular rate and rhythm without murmurs gallops or rubs. Pulm: Clear to auscultation bilaterally without wheezes, rales or rhonchi. Normal respiratory effort. 97% on room air. Abdominal: Soft, nontender, nondistended. Bowel sounds present. Neuro: A&O x3. No focal neurological deficits. 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
[2024-07-04] MEDS: CEFDINIR 300 MG CAP PO SCH (08:07)
[2024-07-04 08:38] LABS: INR 1.2 (0.9-1.1); Prothrombin Time 12.6 Seconds (9.0-12.0)
--- NOTE | 2024-07-04 09:48 | Electrocardiogram Report ---
Test Reason : Blood Pressure : */* mmHG Vent. Rate : 70 BPM Atrial Rate : 70 BPM P-R Int : 190 ms QRS Dur : 80 ms QT Int : 352 ms P-R-T Axes : 8 -2 37 degrees QTcB Int : 380 ms Normal sinus rhythm Normal ECG When compared with ECG of 30-Jun-2024 22:22, Vent. rate has decreased by 45 bpm Confirmed by Liam Orellana ([id number]) on 07/04/2024 9:47:59 AM Referred By: REFERRED SELF Confirmed By: Liam Orellana
--- NOTE | 2024-07-04 10:19 | Hospitalist Progress Note ---
Date of Service July 04, 2024 Assessment & Plan (1) Urinary tract infection: (2) Weakness: (3) Prediabetes: (4) snf current use of 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: Plan This is a 78 year old gentleman with past medical history of DM, HTN, JULIETTE who presented to the ED on 06/30 for flank pain. Urine culture grew E. coli with resistance to ampicillin and intermediate resistance to cefazolin. CT A/P revealed moderate right sided hydronephrosis, suggesting chronic UPJ obstruction, also with urothelial thickening of right collecting system suggestive of cystitis and pyelitis. HEATHER now resolved. PT/OT recommending rehab and feel the patient is unsafe to return home; referrals to rehab pending. #UTI Urology consulted s/p cystoscopy with right ureteral stent placement by Dr. Irving on 07/01. Plans to maintain stent for 1-2 weeks until completion of an tibiotic course, then we will consider more formal ureteroscopy and dilation versus endopyelotomy due to severe stricture of proximal ureter and UPJ Aldrich catheter removed 07/03 and passed voiding trial with clear yellow urine Continue cefdinir 300 mg PO BID Tylenol/Toradol for pain prn #Weakness Secondary to above Patient uses walker at baseline, is to undergo knee replacement 07/24 PT/OT recommend short-term rehab. Patient is not safe to return home per PT #Hx of DVT On warfarin therapy outpatient. INR baseline 2-3 Warfarin resumed 07/03, no further hematuria Follows with anticoagulation clinic Chronic conditions: HTN: Continue Lisinopril 5 mg daily DM: not on meds, A1c 05/2024 6% Morbid Obesity, BMI 43 DVT prophylaxis: Warfarin now resumed Code: full Dispo: Therapy recommending short-term rehab. Referrals made by CM Admission and Anticipated Discharge Date Admission Date: June 30, 2024 Subjective Patient seen and evaluated at bedside. He reports feeling well. He has not had any further hematuria since having his Aldrich removed and his warfarin resumed. He does report some urinary incontinence, which he had previously as well. Continuing to wait for rehab placement. No additional complaints or concerns at this time. Physical Exam Physical Exam: General: No acute distress, nondiaphoretic, well-developed, well-nourished. Cardiac: Regular rate and rhythm without murmurs gallops or rubs. Pulm: Clear to auscultation bilaterally without wheezes, rales or rhonchi. Normal respiratory effort. 98% on room air. Abdominal: Soft, nontender, nondistended. Bowel sounds present. Neuro: A&O x3. No focal neurological deficits. 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
[2024-07-04] MEDS ORDERED: WARFARIN SOD 7.5 MG TAB PO SCH (16:00)
[2024-07-05 07:45] LABS: INR 1.1 (0.9-1.1); Prothrombin Time 11.7 Seconds (9.0-12.0)
[2024-07-05] MEDS: ENOXAPARIN INJ 40 MG/0.4 ML SYR SQ SCH (12:10)
--- NOTE | 2024-07-05 16:41 | Hospitalist Progress Note ---
Date of Service July 05, 2024 Assessment & Plan (1) Urinary tract infection: (2) Weakness: (3) Prediabetes: (4) longterm current use of 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: Plan This is a 78 year old gentleman with past medical history of DM, HTN, JULIETTE who presented to the ED on 06/30 for flank pain. Urine culture grew E. coli with resistance to ampicillin and intermediate resistance to cefazolin. CT A/P revealed moderate right sided hydronephrosis, suggesting chronic UPJ obstruction, also with urothelial thickening of right collecting system suggestive of cystitis and pyelitis. HEATHRE now resolved. PT/OT recommending rehab and feel the patient is unsafe to return home; referrals to rehab pending. #UTI Urology consulted s/p cystoscopy with right ureteral stent placement by Dr. Irving on 07/01. Plans to maintain stent for 1-2 weeks until completion of an tibiotic course, then we will consider more formal ureteroscopy and dilation versus endopyelotomy due to severe stricture of proximal ureter and UPJ Aldrich catheter removed 07/03 and passed voiding trial with clear yellow urine Continue cefdinir 300 mg PO BID Tylenol/Toradol for pain prn Follow CBC, BMP in the morning #Weakness Secondary to above Patient uses walker at baseline, is to undergo knee replacement 07/24 PT/OT recommend short-term rehab. Patient is not safe to return home per PT #Hx of DVT - Follows with anticoagulation clinic On warfarin therapy outpatient. INR baseline 2-3 Warfarin resumed 07/03, no further hematuria INR subtherapeutic, currently at 1.1 Started Lovenox SQ 40 mg QAM until INR within range #HTN: Blood pressures are controlled -Continue Lisinopril 5 mg daily #DMII: not on meds, A1c 05/2024 6% -Continue gabapentin for neuropathy #Morbid Obesity, BMI 43-has a history of bariatric surgery -Needs ongoing weight loss #Depression/anxiety-stable -Continue home duloxetine, Abilify DVT prophylaxis: Lovenox, Warfarin Code: full Dispo: Medically stable for discharge. Therapy recommending short-term rehab. Referrals made by CM, but insurance auth has not yet been applied for. Started Lovenox Admission and Anticipated Discharge Date Admission Date: June 30, 2024 Supervising Physician Co-Signing Physician Notes PA Supervision Note: I did not personally see or examine the patient today, but I verified all roberto points of NALDO Sam's assessment and plan with the following exceptions/additions: None Subjective Patient seen and evaluated at bedside. He reports that his urinary incontinence has improved compared to yesterday. No irritation or problems with his ureteral stent, no hematuria. He denies any complaints or concerns. He is eager for rehab placement. Physical Exam Physical Exam: General: No acute distress, nondiaphoretic, well-developed, well-nourished. Cardiac: Well-perfused. Rates in the 60s. Pulm: Normal respiratory effort. 98% on room air. Neuro: A&O x3. No focal neurological deficits. Results & Data Results & Data Vital Signs (Past 12 Hours) Vital Signs Temp Pulse Resp BP Pulse Ox O2 Del Method 07/05/24 15:09 97.3 F L 60 16 126/66 98 Room Air 07/05/24 07:24 97.5 F L 61 18 151/82 H 98 Room Air Laboratory Results Reviewed PT/INR PG Care Time/CCT Total # of Minutes Spent Total Time Spent with Patient: Total time spent is greater than 50% in coordination of care (as documented) at patient's floor/unit and/or counseling patient: Coding Level of Care Code 45428 SUB INP/OBS CARE 2/35MIN Diagnoses Urinary tract infection N39.0 Weakness R53.1 Prediabetes R73.03 longterm current use of 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 Z79.01
[2024-07-06 07:15] LABS: Basophils # (auto) 0.02 K/uL (0.00-0.20); Basophils % (auto) 0.3 %; Eosinophils # (auto) 0.36 K/uL (0.00-0.50); Hematocrit (blood only) 38.7 % (42.0-52.0); Hemoglobin 12.3 g/dl (14.0-18.0); Immature Granulocytes # (auto) 0.05 K/uL (0.01-0.20); Immature Granulocytes % (auto) 0.8 %; Lymphocytes # (auto) 1.33 K/uL (1.20-3.40); Lymphocytes % (auto) 22.3 %; Mean Corpuscular Hemoglobin 26.5 pg (25.0-34.0); Mean Corpuscular Hgb Conc 31.8 g/dL (32.0-36.0); Mean Corpuscular Volume 83.4 fL (80.0-100.0); Mean Platelet Volume 9.3 fL (9.4-12.4); Monocytes # (auto) 0.71 K/uL (0.11-0.59); Monocytes % (auto) 11.9 %; Neutrophils % (auto) 58.7 %; Platelet Count 190 K/uL (130-400); RDW Coefficient of Variation 14.7 % (11.5-14.5); RDW Standard Deviation 44.6 fL (36.4-46.3); Red Blood Count 4.64 M/uL (4.70-6.10); White Blood Count 5.97 K/ul (4.8-10.8)
[2024-07-06 07:31] LABS: BUN Creatinine Ratio 17.4 (10-20); Creatinine Clr Calc Pharmacy 82.1 ml/min
[2024-07-06 07:37] LABS: INR 1.1 (0.9-1.1); Prothrombin Time 11.4 Seconds (9.0-12.0)
--- NOTE | 2024-07-06 15:02 | Hospitalist Progress Note ---
Date of Service July 06, 2024 Assessment & Plan (1) Urinary tract infection: (2) Weakness: (3) prison current use of 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: (4) Prediabetes: Plan This is a 78 year old gentleman with past medical history of DM, HTN, JULIETTE who presented to the ED on 06/30 for flank pain. Urine culture grew E. coli with resistance to ampicillin and intermediate resistance to cefazolin. CT A/P revealed moderate right sided hydronephrosis, suggesting chronic UPJ obstruction, also with urothelial thickening of right collecting system suggestive of cystitis and pyelitis. HEATHER now resolved. PT/OT recommending rehab and feel the patient is unsafe to return home; referrals to rehab pending. #UTI Urology consulted s/p cystoscopy with right ureteral stent placement by Dr. Irving on 07/01. Plans to maintain stent for 1-2 weeks until completion of an tibiotic course, then we will consider more formal ureteroscopy and dilation versus endopyelotomy due to severe stricture of proximal ureter and UPJ Aldrich catheter removed 07/03 and passed voiding trial with clear yellow urine Continue cefdinir 300 mg PO BID #Weakness Secondary to above Patient uses walker at baseline, is to undergo knee replacement 07/24 PT/OT recommend short-term rehab. Patient is not safe to return home per PT #Hx of DVT - Follows with anticoagulation clinic On warfarin therapy outpatient. INR baseline 2-3 Warfarin resumed 07/03, no further hematuria INR subtherapeutic, currently at 1.1 Continue Lovenox SQ 40 mg QAM until INR within range #HTN - Blood pressures are controlled -Continue Lisinopril 5 mg daily #DMII - not on meds, A1c 05/2024 6% -Continue gabapentin for neuropathy #Morbid Obesity, BMI 43 - has a history of bariatric surgery -Needs ongoing weight loss #Depression/anxiety - stable -Continue home duloxetine, Abilify DVT prophylaxis: Lovenox, Warfarin Code: full Dispo: Medically stable for discharge. Therapy recommending short-term rehab. [facility] has a bed for him, insurance auth submitted by [facility] 07/06 Admission and Anticipated Discharge Date Admission Date: June 30, 2024 Supervising Physician Co-Signing Physician Notes PA Supervision Note: I did not personally see or examine the patient today, but I verified all roberto points of NALDO Sam's assessment and plan with the following exceptions/additions: None Subjective Patient seen and evaluated at bedside. He reports that he is very tired today as he did not sleep well last night. He also notes that he is again dealing with urinary incontinence. He is excited that case management was able to apply for insurance authorization for rehab today, and is eager to hopefully go to rehab soon. Aside from his sleeping urinary incontinence, he denies any other complaints or concerns at this time. Physical Exam Physical Exam: General: No acute distress, nondiaphoretic, well-developed, well-nourished. Cardiac: Well-perfused. Rates in the 70s. Pulm: Normal respiratory effort. 98% on room air. Neuro: A&O x3. No focal neurological deficits. 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
[2024-07-07 10:13] LABS: INR 1.1 (0.9-1.1); Prothrombin Time 11.4 Seconds (9.0-12.0)
--- NOTE | 2024-07-07 13:59 | Hospitalist Progress Note ---
Date of Service July 07, 2024 Assessment & Plan (1) Urinary tract infection: (2) Weakness: (3) long-term current use of 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: (4) Prediabetes: Plan This is a 78 year old gentleman with past medical history of DM, HTN, JULIETTE who presented to the ED on 06/30 for flank pain. Urine culture grew E. coli with resistance to ampicillin and intermediate resistance to cefazolin. CT A/P revealed moderate right sided hydronephrosis, suggesting chronic UPJ obstruction, also with urothelial thickening of right collecting system suggestive of cystitis and pyelitis. HEATHER now resolved. PT/OT recommending rehab and feel the patient is unsafe to return home; referrals to rehab pending. #UTI Urology consulted s/p cystoscopy with right ureteral stent placement by Dr. Irving on 07/01. 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 Patient is not safe to return home per PT. P2P completed for SNF placement, medical communication specialist is going to review notes again prior to making a final determination #Hx of DVT - Follows with anticoagulation clinic On warfarin therapy outpatient. INR baseline 2-3 Warfarin resumed 07/03, no further hematuria INR subtherapeutic, currently at 1.1 Continue Lovenox SQ 40 mg QAM until INR within range #HTN - Blood pressures are controlled -Continue Lisinopril 5 mg daily #DMII - not on meds, A1c 05/2024 6% -Continue gabapentin for neuropathy #Morbid Obesity, BMI 43 - has a history of bariatric surgery -Needs ongoing weight loss #Depression/anxiety - stable -Continue home duloxetine, Abilify DVT prophylaxis: Lovenox, Warfarin Code: full Dispo: Medically stable for discharge. Therapy recommending short-term rehab. [facility] has a bed for him. P2P completed for SNF placement 07/07, medical communication specialist is going to review notes again prior to making a final determination Admission and Anticipated Discharge Date Admission Date: June 30, 2024 Supervising Physician Co-Signing Physician Notes PA Supervision Note: I did not personally see or examine the patient today, but I verified all roberto points of NALDO Sam's assessment and plan with the following exceptions/a dditions: None Subjective Patient seen and evaluated at bedside. He reports "I am feeling really good today." He notes his urinary incontinence seems to be improving. He does report 1 episode of loose stools earlier this morning. Informed him to let his RN now if this diarrhea persist. No additional complaints or concerns at this time. Physical Exam Physical Exam: General: No acute distress, nondiaphoretic, well-developed, well-nourished. Cardiac: Well-perfused. Rates in the 70s. Pulm: Normal respiratory effort. 96% on room air. Neuro: A&O x3. No focal neurological deficits. Results & Data Results & Data Vital Signs (Past 12 Hours) Vital Signs Temp Pulse Resp BP Pulse Ox O2 Del Method 07/07/24 08:30 97.5 F L 71 19 152/82 H 96 Room Air Laboratory Results Reviewed PT/INR PG Care Time/CCT Total # of Minutes Spent Total Time Spent with Patient: Total time spent is greater than 50% in coordination of care (as documented) at patient's floor/unit and/or counseling patient: Coding Level of Care Code 56346 SUB INP/OBS CARE 2/35MIN Diagnoses Urinary tract infection N39.0 Weakness R53.1 long-term current use of 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 Z79.01 Prediabetes R73.03
[2024-07-08 13:50] LABS: INR 1.1 (0.9-1.1); Prothrombin Time 11.5 Seconds (9.0-12.0)
--- NOTE | 2024-07-08 15:02 | Hospitalist Progress Note ---
Date of Service July 08, 2024 Assessment & Plan (1) Urinary tract infection: (2) Weakness: (3) FPC current use of 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: (4) Prediabetes: Plan This is a 78 year old gentleman with past medical history of DM, HTN, JULIETTE who presented to the ED on 06/30 for flank pain. Urine culture grew E. coli with resistance to ampicillin and intermediate resistance to cefazolin. CT A/P revealed moderate right sided hydronephrosis, suggesting chronic UPJ obstruction, also with urothelial thickening of right collecting system suggestive of cystitis and pyelitis. HEATHER now resolved. PT/OT recommending rehab and feel the patient is unsafe to return home. P2P completed and denied, patient's daughter is completing family appeal. #UTI Urology consulted s/p cystoscopy with right ureteral stent placement by Dr. Irving on 07/01. 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 Patient is not safe to return home per PT. P2P denied for SNF placement, patient's daughter is completing family appeal #Hx of DVT - Follows with anticoagulation clinic On warfarin therapy outpatient. INR baseline 2-3 Warfarin resumed 07/03, no further hematuria INR subtherapeutic, currently at 1.1 Continue Lovenox SQ 40 mg QAM until INR within range #HTN - Blood pressures are controlled -Continue Lisinopril 5 mg daily #DMII - not on meds, A1c 05/2024 6% -Continue gabapentin for neuropathy #Morbid Obesity, BMI 43 - has a history of bariatric surgery -Needs ongoing weight loss #Depression/anxiety - stable -Continue home duloxetine, Abilify DVT prophylaxis: Lovenox, Warfarin Code: full Dispo: Medically stable for discharge. Therapy recommending short-term rehab. [facility] has a bed for him. P2P denied for SNF placement; daughter completing family appeal. has set up home health if family appeal is denied. Discussed discharge planning with case management Admission and Anticipated Discharge Date Admission Date: June 30, 2024 Supervising Physician Co-Signing Physician Notes PA Supervision Note: I did not personally see or examine the patient today, but I verified all roberto points of NALDO Sam's assessment and plan with the following exceptions/additions: None Subjective Patient seen and evaluated in bedside chair. His egg caser informed him earlier that his [id number] for SNF rehab was denied. He is disappointed and frustrated about this decision. His daughter is going to complete the family appeal. Mr. Elias continues to report intermittent urinary incontinence. Otherwise, he denies acute complaints or concerns at this time. Physical Exam Physical Exam: General: No acute distress, nondiaphoretic, well-developed, well-nourished. Cardiac: Well-perfused. Rates in the 70s. Pulm: Normal respiratory effort. 95% on room air. Neuro: A&O x3. No focal neurological deficits. Results & Data Results & Data Vital Signs (Past 12 Hours) Vital Signs Temp Pulse Resp BP Pulse Ox O2 Del Method 07/08/24 08:16 98.1 F 71 19 172/72 H 95 Room Air PG Care Time/CCT Total # of Minutes Spent Total Time Spent with Patient: Total time spent is greater than 50% in coordination of care (as documented) at patient's floor/unit and/or counseling patient: Coding Level of Care Code 79489 SUB INP/OBS CARE 2/35MIN Diagnoses Urinary tract infection N39.0 Weakness R53.1 FPC current use of 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 Z79.01 Prediabetes R73.03
[2024-07-09 08:12] LABS: INR 1.1 (0.9-1.1); Prothrombin Time 11.8 Seconds (9.0-12.0)
--- NOTE | 2024-07-09 16:21 | Hospitalist Progress Note ---
Date of Service July 09, 2024 Assessment & Plan (1) Urinary tract infection: (2) Weakness: (3) USP current use of 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: (4) Prediabetes: Plan This is a 78 year old gentleman with past medical history of DM, HTN, JULIETTE who presented to the ED on 06/30 for flank pain. Urine culture grew E. coli with resistance to ampicillin and intermediate resistance to cefazolin. CT A/P revealed moderate right sided hydronephrosis, suggesting chronic UPJ obstruction, also with urothelial thickening of right collecting system suggestive of cystitis and pyelitis. HEATHER now resolved. PT/OT recommending rehab and feel the patient is unsafe to return home. P2P completed and denied, patient's daughter is completing family appeal. #UTI Urology consulted s/p cystoscopy with right ureteral stent placement by Dr. Irving on 07/01. 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 Continue Flomax Follow-up with urology outpatient #Weakness Secondary to above Patient uses walker at baseline, is to undergo knee replacement 07/24 PT/OT recommend short-term rehab. Patient is not safe to return home per PT. P2P denied for SNF placement, patient's daughter is completing family appeal #Hx of DVT - Follows with anticoagulation clinic On warfarin therapy outpatient. INR baseline 2-3 Warfarin resumed 07/03, no further hematuria INR subtherapeutic, remains at 1.1 Continue Lovenox SQ 40 mg QAM until INR within range #HTN - Blood pressures are controlled -Continue Lisinopril 5 mg daily #DMII - not on meds, A1c 05/2024 6% -Continue gabapentin for neuropathy #Morbid Obesity, BMI 43 - has a history of bariatric surgery -Needs ongoing weight loss #Depression/anxiety - stable -Continue home duloxetine, Abilify DVT prophylaxis: Lovenox, Warfarin Code: full Dispo: Medically stable for discharge. Therapy recommending short-term rehab. [facility] has a bed for him. P2P denied for SNF placement; daughter completing family appeal. has set up home health if family appeal is denied. Admission and Anticipated Discharge Date Admission Date: June 30, 2024 Subjective Patient seen and evaluated in bedside chair. He is in better spirits today. He notes his urinary incontinence has improved. He notes that he slept well last night and has a good appetite. His daughter is working on the [employer] for SNF rehab. He has some anxiety regarding further rehab denial, but is optimistic the [employer] will work. Otherwise, he denies any complaints or concerns at this time. It would just depend on like how they are doing symptom parrish what their presentation is Physical Exam Physical Exam: General: No acute distress, nondiaphoretic, well-developed, well-nourished. Cardiac: Well-perfused. Rates in the 60s. Pulm: Normal respiratory effort. 97% on room air. Neuro: A&O x3. No focal neurological deficits. Results & Data Results & Data Vital Signs (Past 12 Hours) Vital Signs Temp Pulse Resp BP Pulse Ox O2 Del Method 07/09/24 14:57 97.3 F L 61 16 103/64 97 Room Air 07/09/24 08:05 97.3 F L 65 16 134/69 94 Room Air Laboratory Results Reviewed PT/INR PG Care Time/CCT Total # of Minutes Spent Total Time Spent with Patient: Total time spent is greater than 50% in coordination of care (as documented) at patient's floor/unit and/or counseling patient: Coding Level of Care Code 20748 SUB INP/OBS CARE 2/35MIN Diagnoses Urinary tract infection N39.0 Weakness R53.1 USP current use of 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 Z79.01 Prediabetes R73.03
[2024-07-10 07:57] LABS: INR 1.1 (0.9-1.1); Prothrombin Time 12.3 Seconds (9.0-12.0)
--- NOTE | 2024-07-10 08:20 | Hospitalist Progress Note ---
Date of Service July 10, 2024 Assessment & Plan (1) Urinary tract infection: (2) Weakness: (3) shelter current use of 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: (4) Prediabetes: Plan This is a 78 year old gentleman with past medical history of DM, HTN, JULIETTE who presented to the ED on 06/30 for flank pain. Urine culture grew E. coli with resistance to ampicillin and intermediate resistance to cefazolin. CT A/P revealed moderate right sided hydronephrosis, suggesting chronic UPJ obstruction, also with urothelial thickening of right collecting system suggestive of cystitis and pyelitis. HEATHER now resolved. PT/OT recommending rehab and feel the patient is unsafe to return home. P2P completed and denied, patient's daughter is completing family appeal. #UTI Urology consulted s/p cystoscopy with right ureteral stent placement by Dr. Irving on 07/01. Plans to maintain stent for 1-2 weeks until completion of antibiotic course, then we will consider more formal ureteroscopy and dilation versus endopyelotomy due to severe stricture of proximal ureter and UPJ Diaz catheter removed 07/03 and passed voiding trial with clear yellow urine Continue cefdinir 300 mg PO BID. Got >3 days IV Rocephin, likely can dc after today's course PO given diaz removed prior as will have completed >7 day course Continue Flomax, urology outpatient at discharge Family appealing for SNF, ongoing inpatient stay #Hx of DVT - Follows with anticoagulation clinic , on coumadin with goal INR 2-3 Coumadin held for procedure for above and was RESUMED 07/03 given no further hematuria and remains on Lovenox SQ daily until in range. INR still subtherapeutic at 1.1 today, on coumadin 5mg daily (7.5mg on Tuesday which I did order) and discussed w/ Dr Dasilva as patient failed DOAC in the past and will give 10mg TODAY x 1 INR in am/increased coumadin dosing pending repeat INR however notable does report increased greens/veggies and suspect contributing and will need ongoing f/u AC at dc #R shoulder pain chronic, follows w/ Dr Lopez and injection in the past month. Tylenol to be provided by nursing and added lidocaine patch. No CP/SOB or radiation and will monitor. Continue PT/OT #Weakness- secondary to above and uses walker at baseline . For knee replacement 07/24. PT/OT rec rehab and not safe for return home per PT. P2P denied for SNF and daughter completing family appeal presently and CM to follow #HTN - Blood pressures are controlled and remains on lisinopril 5mg daily #DMII - A1c 6 and not on meds at baseline but is on gabapentin for neuropathy. On B12 supp at baseline #Morbid Obesity, BMI 43 - has a history of bariatric surgery, needs ongoing weight loss. ?Ozempic in f/u #Depression/anxiety - stable and remains on Abilify, Cymbalta 60mg DVT prophylaxis: Lovenox, Warfarin increased to 10mg for today/INR in AM Dispo: continued inpatient stay for family appeal. CM following to set up HH if family appeal denied Admission and Anticipated Discharge Date Admission Date: June 30, 2024 Supervising Physician Co-Signing Physician Notes The patient was not seen by me. The chart was reviewed. Case discussed with NALDO Jaeger. Agree with assessment and plan Subjective Eval this afternoon, sitting up in recliner. Worked with PT, did some exercises for his R should and thinks over did it. Silvano like NACHO grady to provide. Has gotten injection by Dr lopez in past month. Ongoing waiting for family appeal for SNF, urinating without issue. Discussed likely able to dc abx at this time but will review duration. Discussed INR remains subtherapeutic, follows with Dr Dasilva/coag clinic. Discussed will reach out but takes 6.5mg on Wednesdays which has been ordered and likely will give 7.5mg today. Incidentally he does note he has been eating a lot more greens/vegetables than he typically gets while inpatient and do suspect also contributing. No CP/SOB. Questions/concerns addressed at this time. Physical Exam 2 Physical Exam: General: 78yo male sitting up in recliner, NAD, having some R shoulder discomfort, ROM intact Head atraumatic, normocephalic, mmm, trachea midline, +thick neck Resp; even/unlabored, no wheezing/rales, on room air CV: RRR, faint systolic murmur, trace pedal edema but nonpitting, pulses present GI: +BS, soft/obese, no overt tenderness/guarding/rebound no diaz MSK/Neuro: generalized weakness but nonfocal, baseline R knee OA, pulses present, no facial droop/slurred speech, not confused Psych: AOx3, cooperative with exam Results & Data Results & Data Vital Signs (Past 12 Hours) Vital Signs Temp Pulse Resp BP Pulse Ox O2 Del Method 07/10/24 07:35 36.4 C L 71 16 132/73 97 Room Air Laboratory Results 07/06/24 06:53 07/06/24 06:53 INR 1.1 PG Care Time/CCT Total # of Minutes Spent Total Time Spent with Patient: Total time spent is greater than 50% in coordination of care (as documented) at patient's floor/unit and/or counseling patient: Coding Level of Care Code 39543 SUB INP/OBS CARE 3/50MIN Diagnoses Urinary tract infection N39.0 Weakness R53.1 shelter current use of 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 Z79.01 Prediabetes R73.03
[2024-07-10] MEDS: LIDOCAINE 5% 1 PATCH TD SCH (15:21)
[2024-07-10] MEDS: WARFARIN SOD 5 MG TAB PO ONE (15:21)
[2024-07-10] MEDS ORDERED: WARFARIN SOD 2.5 MG TAB PO ONE (16:00)
[2024-07-10] MEDS: MELATONIN 3 MG TAB PO PRN (21:01)
[2024-07-11 07:26] VITALS: RESP 18; O2SAT 97
[2024-07-11 08:15] LABS: Albumin Globulin Ratio 1.1 (0.9-2); Albumin Level 3.5 gm/dl (3.4-5.0); BUN Creatinine Ratio 18.2 (10-20); Bilirubin,Total 0.3 mg/dl (0.2-1.0); Calcium 9.1 mg/dl (8.6-10.3); Creatinine Clr Calc Pharmacy 85.8 ml/min; Globulin 3.2 gm/dl (2.5-4.0); Magnesium 1.9 mg/dl (1.7-2.4); Total Protein 6.7 gm/dl (6.0-8.3)
[2024-07-11 08:18] LABS: INR 1.3 (0.9-1.1); Prothrombin Time 13.5 Seconds (9.0-12.0)
--- NOTE | 2024-07-11 08:19 | Hospitalist Progress Note ---
Date of Service July 11, 2024 Assessment & Plan (1) Urinary tract infection: (2) Weakness: (3) USP current use of 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: (4) Prediabetes: Plan This is a 78 year old gentleman with past medical history of DM, HTN, JULIETTE who presented to the ED on 06/30 for flank pain. Urine culture grew E. coli with resistance to ampicillin and intermediate resistance to cefazolin. CT A/P revealed moderate right sided hydronephrosis, suggesting chronic UPJ obstruction, also with urothelial thickening of right collecting system suggestive of cystitis and pyelitis. HEATHER now resolved. PT/OT recommending rehab and feel the patient is unsafe to return home. P2P completed and denied, patient's daughter is completing family appeal. #UTI Urology consulted s/p cystoscopy with right ureteral stent placement by Dr. Irving on 07/01. 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 Coumadin 5mg daily/7.5mg on Wednesdays, goal INR 2-3 Coumadin held for procedure for above, RESUMED 07/03 w/ resolution in hematuria Lovenox SQ daily while INR <2, remained 1.1 on 07/10 w/ reports increased greens/veggies and suspect contributing * Discussed w/ Dr Dasilva as patient failed DOAC in the past and given 10mg PO on 07/10 * Repeating another 10mg for today (07/11) w/ INR 1.3 today and hopefully closer to range by tomorrow but will need continued f/u at pa #R shoulder pain chronic, follows w/ Dr Lopez and injection in the past month. Tylenol to be provided by nursing and added lidocaine patch w/ significant improvement/no further issues. No CP/SOB or radiation and continue PT/OT as above #Weakness - secondary to above and uses walker at baseline For knee replacement 07/24. PT/OT rec rehab and not safe for return home per PT P2P denied for SNF and daughter completing family appeal presently and CM to follow Pt wanting to see if able to do intake while here, will see, may need rescheduled #HTN - Blood pressures are controlled and remains on lisinopril 5mg daily 138/81 #DMII - A1c 6 and not on meds at baseline but is on gabapentin for neuropathy. - On B12 supp at baseline #Morbid Obesity, BMI 43 - has a history of bariatric surgery, needs ongoing weight loss. ?Ozempic in f/u #Depression/anxiety - stable and remains on Abilify, Cymbalta 60mg DVT prophylaxis: Lovenox continued and repeat coumadin 10mg for today/INR in AM Dispo: continued inpatient stay waiting for determination of family appeal. CM to follow Admission and Anticipated Discharge Date Admission Date: June 30, 2024 Supervising Physician Co-Signing Physician Notes The patient was not seen by me. The chart was reviewed. Case discussed with NALDO Jaeger. Agree with assessment and plan Subjective Eval this morning sitting up in bed. Off abx, feeling well. Pain resolved to shoulder w/ lidocaine patch and changed this morning. Waiting for family appeal outcome. INR to 1.3 and 10mg PO for today/monitoring. Not moved bowels x 2 days, passing gas. Will add bowel regimen. He reports 2 appts tomorrow for coag clinic and PAT for intake for knee and wondering about getting done while here and will see. Questions/concerns addressed at this time. Physical Exam 2 Physical Exam: General: 78yo male sitting up in recliner, NAD, Head atraumatic, normocephalic, mmm, trachea midline, +thick neck Resp; even/unlabored, no wheezing/rales, on room air CV: RRR, faint systolic murmur, trace pedal edema but nonpitting, pulses present GI: +BS, soft/obese, no overt tenderness/guarding/rebound no diaz MSK/Neuro: generalized weakness but nonfocal, baseline R knee OA, pulses present, no facial droop/slurred speech, not confused Psych: AOx3, cooperative with exam Results & Data Results & Data Vital Signs (Past 12 Hours) Vital Signs Temp Pulse Resp BP Pulse Ox O2 Del Method 07/11/24 07:25 36.4 C L 63 18 138/81 97 Room Air Laboratory Results 07/06/24 06:53 07/11/24 07:36 INR 1.3 PG Care Time/CCT Total # of Minutes Spent Total Time Spent with Patient: Total time spent is greater than 50% in coordination of care (as documented) at patient's floor/unit and/or counseling patient: Coding Level of Care Code 12447 SUB INP/OBS CARE 3/50MIN Diagnoses Urinary tract infection N39.0 Weakness R53.1 buttermaker helper current use of 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 Z79.01 Prediabetes R73.03
[2024-07-11] MEDS: SENNA 8.6 MG TAB PO SCH (10:53)
[2024-07-11] MEDS: DOCUSATE SODIUM 100 MG CAP PO SCH (10:53)
[2024-07-11] MEDS ORDERED: WARFARIN SOD 7.5 MG TAB PO SCH (16:00)
[2024-07-11] MEDS ORDERED: PHENAZOPYRIDINE HCL 100 MG TAB PO PRN (16:48)
[2024-07-11] MEDS: WARFARIN SOD 10 MG TAB PO SCH (17:23)
[2024-07-12 08:07] LABS: BUN Creatinine Ratio 18.9 (10-20); Calcium 9.4 mg/dl (8.6-10.3); Creatinine Clr Calc Pharmacy 89.1 ml/min; Potassium 4.2 mmol/L (3.5-5.1)
[2024-07-12 08:17] LABS: INR 1.4 (0.9-1.1); Prothrombin Time 15.1 Seconds (9.0-12.0)
[2024-07-12 08:35] VITALS: BP 126/73; TEMP 97.9
--- NOTE | 2024-07-12 08:43 | Hospitalist Progress Note ---
Date of Service July 12, 2024 Assessment & Plan (1) Urinary tract infection: (2) Weakness: (3) retirement current use of 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: (4) Prediabetes: Plan This is a 78 year old gentleman with past medical history of DM, HTN, JULIETTE who presented to the ED on 06/30 for flank pain. Urine culture grew E. coli with resistance to ampicillin and intermediate resistance to cefazolin. CT A/P revealed moderate right sided hydronephrosis, suggesting chronic UPJ obstruction, also with urothelial thickening of right collecting system suggestive of cystitis and pyelitis. HEATHER now resolved. PT/OT recommending rehab and feel the patient is unsafe to return home. P2P completed and denied, patient's daughter is completing family appeal. #UTI Urology consulted s/p cystoscopy with right ureteral stent placement by Dr. Irving on 07/01. 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 Coumadin 5mg daily/7.5mg on Wednesdays, goal INR 2-3 Coumadin held for procedure for above, RESUMED 07/03 w/ resolution in hematuria Lovenox SQ daily while INR <2, remained 1.1 on 07/10 w/ reports increased greens/veggies and suspect contributing * Discussed w/ Dr Dasilva as patient failed DOAC in the past and given 10mg PO on 07/10 * Repeating another 10mg for today (07/11) w/ INR 1.3 today and hopefully closer to range by tomorrow but will need continued f/u at dc INR 1.4 today, message to coag clinic to see about 7.5mg today or continue 5mg/monitor INR in AM. Recs to continue 10mg daily until INR closer to 2, possibly 1.8 and will adjust to 10mg daily for now #R shoulder pain chronic, follows w/ Dr Lopez and injection in the past month. Tylenol to be provided by nursing and added lidocaine patch w/ significant improvement/no further issues. No CP/SOB or radiation and continue PT/OT as above #Weakness - secondary to above and uses walker at baseline For knee replacement 07/24. PT/OT rec rehab and not safe for return home per PT P2P denied for SNF and daughter completing family appeal presently and CM to follow Pt wanting to see if able to do intake while here, will see, may need rescheduled #HTN - Blood pressures are controlled and remains on lisinopril 5mg daily 138/81 #DMII - A1c 6 and not on meds at baseline but is on gabapentin for neuropathy. - On B12 supp at baseline #Morbid Obesity, BMI 43 - has a history of bariatric surgery, needs ongoing weight loss. ?Ozempic in f/u #Depression/anxiety - stable and remains on Abilify, Cymbalta 60mg DVT prophylaxis: Lovenox continued and repeat coumadin 10mg for today/INR in AM Dispo: continued inpatient stay waiting for determination of family appeal. CM to follow Admission and Anticipated Discharge Date Admission Date: June 30, 2024 Results & Data Results & Data Vital Signs (Past 12 Hours) Vital Signs Temp Pulse Resp BP Pulse Ox O2 Del Method 07/12/24 08:34 36.6 C 60 18 126/73 97 Room Air PG Care Time/CCT Total # of Minutes Spent Total Time Spent with Patient: Total time spent is greater than 50% in coordination of care (as documented) at patient's floor/unit and/or counseling patient: Coding Diagnoses Urinary tract infection N39.0 Weakness R53.1 retirement current use of 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 Z79.01 Prediabetes R73.03
--- NOTE | 2024-07-12 10:15 | Discharge Summary ---
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 Irving on 07/01. 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 coli with resistance to ampicillin and intermediate resistance to cefazolin. Was on Ceftriaxone IV and transitioned to Cefdinir 300mg BID and completed >10 day course IV/PO and has been discontinued and no need for ongoing abx at [place] Diaz catheter removed 07/03 and passed voiding trial with clear yellow urine Continue flomax, pyridium and urology follow up for stent removal Was given Lovenox SQ once daily with INR below goal (goal range 2-3) as coumadin held for infection/stone/treatment and hematuria and was resumed 06/13 but remained suptherapeutic and was discussed w anticoagulation clinic and provided patient with 10mg coumadin on 07/10, 07/11 and INR 1.4 from 1.1 with increase and to continue 10mg daily until INR closer to 2 (likely 1.8) and can then resume prior usual schedule (5mg all days but 7.5mg on Tuesday) and rec for INR on Tuesday and follow up with anticoagulation clinic. Order in system for repeat INR if able to be drawn by services. Initially PT/OT rec rehab, denied by insurance and family to appeal but improvement in room and wanting to get to his pre-op appt for knee surgery upcoming and stable per therapy and CM arranged for HH and able to discharge home. F/u PCP, urology at discharge. Rx for Pyridium as needed. #UTI as above, completed course abx and leukocytosis resolved/urinating without issue since diaz removal and to continue flomax, pyridium and outpatient follow up with urology for stent removal 2-3 wks #Hx of DVT Follows with anticoagulation clinic. Coumadin 5mg daily/7.5mg on Wednesdays, goal INR 2-3 As above, INR 1.4 prior to dc and discussed w/ supervising provider given no mechanical valve/active clot and no need to continue lovenox SQ at dc and to continue coumadin as outlined and f/u coag clinic. Notable was getting lot more greens/veggies in hospital than he usually gets at home and suspect will be back in goal in next 24-48hrs. #R shoulder pain chronic, follows w/ Dr Lopez and injection in the past month. Tylenol/lidocaine patch w/ good results. F/u ortho outpatient and PT/OT w/ HH as above Rx lidocaine patch at dc per req #Weakness - secondary to above and uses walker at baseline IMPROVEMENT w/ treatment above Does have hip/knee discomfort at baseline and for RIGHT knee replacement on 07/24 and had PAT appt as above today for upcoming surgery. Defer to anesthesia for clearance but has completed course of abx and suspect could still undergo scheduled replacement given primary issue w/ ambulation 2nd to OA Ambulating in room MUCH better when seen prior to dc 07/12, HH [place] arranged by [facility] #HTN - Blood pressures are controlled and remained on lisinopril 5mg daily #DMII - A1c 6 and not on meds at baseline but is on gabapentin for neuropathy. - On B12 supp at baseline #Morbid Obesity, BMI 43 - has a history of bariatric surgery, needs ongoing weight loss. ?Ozempic in f/u PCP could be considered #Depression/anxiety - stable and remains on Abilify, Cymbalta 60mg DVT prophylaxis: Lovenox continued while inpatient/subtherapeutic but no evidence for DVT and no need for lovenox at dc but should monitor. Coumadin as outlined Dispo: dc home w/ HH services Notes For Next Care Provider Follow up repeat INR/ensure anticoagulation clinic follow up Ensure f/u urology for stent removal Consider ozempic for weight loss/diabetes if affordable/agreeable Medication Changes From Visit Pyridium prn Lidocaine patch R shoulder daily Admission HPI Per Admitting Provider This is a 78 year old gentleman with past medical history of DM, HTN, JULIETTE who presented to the ED on 06/30 for flank pain. Patient was seen and examined this afternoon. Patient reports that he has been having increased urinary incontinence recently, especially last night. He has also been having right sided flank pain that is 8 out of 10 in nature. He reports increased urgency and decreased volume that he is voiding. He reports his urine is a dark brown color and has been recently. He denies fevers, chills, chest pain, shortness of breath, extremity pain, LE edema. He denies nausea, vomiting, abdominal pain. While in the ED patient was found to have a urinalysis positive for a UTI. He was given IV Rocephin, Toradol, and Tylenol for his symptoms. His CBC was with mild leukocytosis of 11.73. He had a CTAP that revealed moderate hydronephrosis w/ normal caliber ureter, similar to prior exams. Suggests chronic UPJ obstruction. interval development of urothelial thickening of right collecting system, ureter and bladder suggestive of cystitis and pyelitis. no change in old small subcapsular renal fluid collection. Admission Exam Per Admitting Provider Constitutional: WD/WN, vitals as above + morbidly obese Eyes: PERRL, conjunctivae normal, anicteric sclerae Respiratory: normal respiratory effort, lungs clear to auscultation Cardiovascular: RRR, no murmur, no edema Gastrointestinal (Abdomen): normal bowel sounds, soft, nontender, no hepatosplenomegaly Psychiatric: A+Ox3, euthymic affect Discharge Exam General: 78yo male sitting up in recliner, dressed, wanting to go, looks much better/NAD Head atraumatic, normocephalic, mmm, trachea midline, +thick neck Resp; even/unlabored, no wheezing/rales, on room air CV: RRR, faint systolic murmur, no pitting edema, calves nontender, pulses present GI: +BS, soft/obese, no overt tenderness/guarding/rebound no diaz MSK/Neuro: generalized weakness but nonfocal, baseline R knee OA, pulses prese nt, no facial droop/slurred speech, not confused Psych: AOx3, cooperative with exam Discharge Plan Discharge Items Patient Disposition: Home - Home Health Services Reason For Visit: RIGHT FLANK PAIN Discharge Diagnosis: Flank pain, UTI, stone Goals: You have been hospitalized for an urgent problem which required surgery. During your stay at [facility], we have made an effort to correct the problem that brought you to the hospital while keeping you as comfortable as possible. Surgery and medications were used to bring your condition under control and your discharge instructions will include directions for any medications you should take after leaving the hospital. Please make sure to follow the advice of your surgeon regarding follow up with the surgeon and with your primary care provider. Activity: As commented below Non-emergency contact: Primary Care Provider, Surgeon and Urologist Call non-emergency contact if: you have any medication questions, your symptoms worsen, your pain is not controlled, your pain is worsening, your pain is unusual for you and you have a fever Follow-up/Referrals: Tomi Irving DO [Physician] - 07/20/24 10:15 am Henry Prieto DO [Primary Care Provider] - 07/16/24 11:30 am Diet: Heart Healthy Ambulatory Orders: Prothrombin Time INR (Timed) Timeframe: [id number] Location: Determined by Patient Ordered By: Catina Cardenas Attending Provider Instructions: You have been hospitalized for flank pain. Your urine cultures and imaging were suggestive of a urinary tract infection due to stone and urology was consulted and took you to the OR for cystoscopy and irrigation/evacuation of the bladder and have been able to remove the catheter following. You have completed the course of antibiotics while in the hospital and do not need any further at discharge. You should continue alfuzosin daily. Can use Pyridium as needed for stent management/discomfort. You should have outpatient follow up with urology at discharge for removal of the stent as outpatient. You had your coumadin held initially for the procedure but was able to be resumed. I discussed this with Dr Dasilva and we gave you extra coumadin on 07/10 and 07/11 and your INR at discharge is 1.4 and SHOULD CONTINUE 10mg DAILY UNTIL INR 1.8 or better. You should have ongoing follow up with anticoagulation clinic at discharge for ongoing management. Therapy evaluations were undertaken and recommend rehab however was denied by insurance and home health has been arranged. Please follow up with primary care in the next 7-10 days to monitor your status and coordinate your care moving forward. Please return to the ER with any increased flank pain, fever/chills, difficulty urinating or for any other symptoms concerning for you. It has been a pleasure being a part of the medical team providing for you while you have been in the hospital. Take care! Pending Studies at Discharge: No Stand-Alone Forms: [facility], Smoking Cessation Medications and DC Order Prescriptions: New phenazopyridine [Pyridium] 100 mg Tablet 100 mg PO TID PRN (Reason: pain) Qty: 20 0RF lidocaine 5 % Adhesive Patch,Medicated 1 patch transdermal QAM Qty: 15 0RF Continued Cosentyx Pen (2 Pens) 150 mg/mL pen injector 300 mg subcut .COMPLEX Qty: 6 3RF Rx Instructions: 300 mg every 4 weeks (on ) for maintenance as directed lisinopril 5 mg tablet 5 mg PO DAILY Qty: 30 5RF gabapentin 300 mg capsule 300 mg PO TID Qty: 90 5RF cholecalciferol (vitamin D3) 50 mcg (2,000 unit) capsule 50 mcg PO DAILY cyanocobalamin (vitamin B-12) 1,000 mcg tablet 1,000 mcg PO DAILY multivitamin with minerals Capsule 1 cap PO DAILY warfarin 5 mg tablet See Rx Instructions .ROUTE .COMPLEX Rx Instructions: TAKE 5MG EVERY TUESDAY/TUESDAY/TUESDAY/TUESDAY/TUESDAY/TUESDAY. AND 7.5MG ON TUESDAY alfuzosin 10 mg tablet extended release 24 hr 10 mg PO QPM Rx Instructions: administer after the same meal each day pantoprazole 40 mg tablet,delayed release (DR/EC) 40 mg PO DAILY aripiprazole [Abilify] 5 mg tablet 5 mg PO DAILY Rx Instructions: for depression duloxetine 60 mg capsule,delayed release(DR/EC) 60 mg PO QDL No Action (DME) Shower Chair Misc See Rx Instructions .Route Qty: 1 0RF Rx Instructions: As directed (DME) Ultra-Light Rollator Misc See Rx Instructions .Route Qty: 1 0RF Rx Instructions: As directed Discharge Orders: Discharge Order (Routine); Ordered 07/12/24 Ordered By: Catina Workman Admission Data Admit Date/Time: 06/30/24 15:56 Attending Provider: Jimbo Carrera Admit Provider: Reynaldo Hobbs Primary Care Provider: Henry Prieto Other Providers: Vance Riggins; [place]; [facility]; [facility] Fax Other Interventions: Discharge Summary Assessment (RN) Last Done: 07/12/24 10:41 Hospital Stay Data Consultations 06/30/24 15:43 ED Decision to Admit Stat 06/30/24 15:56 Consult Urology Routine Procedures Performed Operation Date: 07/01/24 10:00 Actual Procedures p Cystoscopy, Right Retrograde Pylogram, Right Aspiration, Right Ureteral Dilation, and Insertion of Stent - Tomi Irving DO Diagnostic Imagining Performed Abdomen/Pelvis CT 06/30/24 11:46 CT OF THE ABDOMEN AND PELVIS WITH CONTRAST CLINICAL HISTORY: Urinary symptoms, right side flank pain. COMPARISON STUDY: CT of the abdomen and pelvis May 30, 2024. TECHNIQUE: Following IV administration of 94 mL of Optiray, axial images of the abdomen and pelvis were obtained from the lung bases to the proximal femurs. Images were reviewed in the axial, sagittal, and coronal planes. IV contrast was administered without complication. Automated exposure control was utilized for the study. A dose lowering technique was utilized adhering to the principles of ALARA. CT DOSE: 1549.61 mGy.cm FINDINGS: No pneumatosis, free air or portal venous gas is present. Stable postoperative findings within the stomach are noted. There is hepatic steatosis. No biliary or pancreatic ductal dilatation is present status post cholecystectomy. Spleen, adrenal glands and pancreas are unremarkable. Mild bilateral renal cortical thinning is noted. A small subcapsular right renal fluid collection measuring 1.1 cm is unchanged since initial CT of March 07, 2020. Moderate right hydronephrosis is also similar to prior exams. Caliber of the right ureter is normal. There are no ureteral calculi. Urothelial thickening involving the right collecting system, right ureter and bladder is noted. There is adjacent stranding. There is no evidence for a bowel obstruction. Caliber and wall thickness of small and large bowel are normal. Major vasculature is patent. IMPRESSION: 1. Moderate right hydronephrosis with normal caliber ureter, similar to prior exams. This suggests a chronic UPJ obstruction. Interval development of urothelial thickening of the right collecting system, ureter and bladder suggestive of cystitis and pyelitis. Findings could be correlated with urinalysis. 2. No change in an old small subcapsular renal fluid collection. 3. Hepatic steatosis. 4. No bowel obstruction. ACT 112: Negative or not required by law. Electronically signed by: Félix Delatorre M.D. 06/30/2024 1:25 PM Retrograde Pyelogram 07/01/24 10:38 FL retrograde includes kub CLINICAL HISTORY: RIGHT RETROGRADE, STENT COMPARISON STUDY: CT of the abdomen and pelvis June 30, 2024. FLUOROSCOPY TIME: 3 minutes and 52 seconds. Ka,r: 197.22 mGy FLUOROSCOPIC IMAGES: 2 FINDINGS: Fluoroscopy was provided during right retrograde pyelogram and right ureteral stent insertion. The stent is well positioned. Right hydronephrosis is again noted. IMPRESSION: Fluoroscopy provided during right retrograde pyelogram and right ureteral stent insertion. ACT 112: Negative or not required by law. Electronically signed by: Félix Delatorre M.D. 07/01/2024 11:32 AM Pending Results Patient Have Any Pending Studies at Discharge: No Discharge Instructions Given to Patient (Per Discharging Provider) You have been hospitalized for flank pain. Your urine cultures and imaging were suggestive of a urinary tract infection due to stone and urology was consulted and took you to the OR for cystoscopy and irrigation/evacuation of the bladder and have been able to remove the catheter following. You have completed the course of antibiotics while in the hospital and do not need any further at discharge. You should continue alfuzosin daily. Can use Pyridium as needed for stent management/discomfort. You should have outpatient follow up with urology at discharge for removal of the stent as outpatient. You had your coumadin held initially for the procedure but was able to be resumed. I discussed this with Dr Dasilva and we gave you extra coumadin on 07/10 and 07/11 and your INR at discharge is 1.4 and SHOULD CONTINUE 10mg DAILY UNTIL INR 1.8 or better. You should have ongoing follow up with anticoagulation clinic at discharge for ongoing management. Therapy evaluations were undertaken and recommend rehab however was denied by insurance and home health has been arranged. Please follow up with primary care in the next 7-10 days to monitor your status and coordinate your care moving forward. Please return to the ER with any increased flank pain, fever/chills, difficulty urinating or for any other symptoms concerning for you. It has been a pleasure being a part of the medical team providing for you while you have been in the hospital. Take care! Supervising Physician Co-Signing Physician Notes The patient was not seen by me. The chart was reviewed. Case discussed with NALDO Jaeger. Agree with assessment and plan Total Time Total Time Spent Total Time Spent (In Minutes): 50 Coding Level of Care Code 32741 INP/OBS DISCH >30 MIN Diagnoses Urinary tract infection N39.0 Weakness R53.1 correction current use of 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 Z79.01 Prediabetes R73.03
[2024-07-12 10:43] VITALS: PULSE 73
[2024-07-12] MEDS ORDERED: WARFARIN SOD 10 MG TAB PO SCH (16:00)
== END 2024-07-12 11:25 | disposition home health service (06) | DRG 660 ==
LOC: SUATTDRO → ED 11:23 → 3W 15:56 → SUATTDRO 15:56 → 3W 17:41

== ENCOUNTER 2024-09-19 10:23 | Observation (INO) ==
--- NOTE | 2024-06-28 10:46 | PAT Medication Instructions ---
Medication Instructions Date of Service June 28, 2024 Home Medications Medication Instructions Recorded secukinumab 150 mg/mL subcutaneous 300 mg (2 mL) subcut .COMPLEX #6 mL 03/22/22 pen injector (Cosentyx Pen 300 mg/2 Pens () Shower Chair #1 ea 10/04/22 walker (Ultra-Light Rollator misc) #1 ea 10/04/22 alfuzosin 10 mg tablet,extended 10 mg PO DAILY #30 tabs 04/20/24 release 24 hr lisinopril 5 mg tablet 5 mg PO DAILY #30 tabs 05/16/24 gabapentin 300 mg capsule 300 mg PO TID #90 caps 05/30/24 secukinumab 150 mg/mL subcutaneous pen injector (Cosentyx Pen 300 mg/2 Pens () 300 mg (2 mL) subcut .COMPLEX cholecalciferol (vitamin D3) 50 mcg (2,000 unit) capsule 50 mcg PO DAILY cyanocobalamin (vitamin B-12) 1,000 mcg tablet 1,000 mcg PO DAILY loratadine 10 mg tablet 10 mg PO DAILY PRN multivitamin with minerals 1 cap PO DAILY alfuzosin 10 mg tablet,extended release 24 hr 10 mg PO DAILY lisinopril 5 mg tablet 5 mg PO DAILY gabapentin 300 mg capsule 300 mg PO TID warfarin 5 mg tablet 5 mg PO 6XWK warfarin 5 mg tablet 7.5 mg PO WK aripiprazole 5 mg tablet (Abilify) 5 mg PO DAILY duloxetine 60 mg capsule,delayed release 60 mg PO DAILY pantoprazole 40 mg tablet,delayed release 40 mg PO DAILY Continue as directed alfuzosin 10 mg tablet,extended release 24 hr 10 mg PO DAILY aripiprazole 5 mg tablet (Abilify) 5 mg PO DAILY duloxetine 60 mg capsule,delayed release 60 mg PO DAILY pantoprazole 40 mg tablet,delayed release 40 mg PO DAILY ASK your prescriber and surgeon warfarin 5 mg tablet 5 mg PO 6XWK warfarin 5 mg tablet 7.5 mg PO WK secukinumab 150 mg/mL subcutaneous pen injector (Cosentyx Pen 300 mg/2 Pens () 300 mg (2 mL) subcut .COMPLEX DO NOT take the morning of surgery cholecalciferol (vitamin D3) 50 mcg (2,000 unit) capsule 50 mcg PO DAILY cyanocobalamin (vitamin B-12) 1,000 mcg tablet 1,000 mcg PO DAILY loratadine 10 mg tablet 10 mg PO DAILY PRN multivitamin with minerals 1 cap PO DAILY lisinopril 5 mg tablet 5 mg PO DAILY Take morning of surgery With a small sip of water, OTHERWISE NOTHING TO EAT OR DRINK AFTER MIDNIGHT: gabapentin 300 mg capsule 300 mg PO TID Take evening before surgery gabapentin 300 mg capsule 300 mg PO TID Other Notes If you have any questions please call us at [phone] or [phone] or [phone] or [phone]
--- NOTE | 2024-07-12 11:28 | Anesthesiology Consultation ---
Date of Service July 12, 2024 Assessment & Plan (1) Encounter for pre-operative examination: Plan - discharge summary 07/12/24 [facility]: "...78yo male with PMHx DM II, HTN, JULIETTE presented for FLANK PAIN and HEATHER (Cr 1.97), leukocytosis (11.7k) and +UA...moderate right sided hydronephrosis, suggesting chronic UPJ obstruction, also with urothelial thickening of right collecting system suggestive of cystitis and pyelitis...s/p cystoscopy with right ureteral stent placement by Dr. Irving on 07/01. Plans to maintain stent for 1-2 weeks until completion of antibiotic course, then we will consider more formal ureteroscopy and dilation versus endopyelotomy due to severe stricture of proximal ureter and UPJ. Urine cx obtained and grew E. coli with resistance to ampicillin and intermediate resistance to cefazolin. Was on Ceftriaxone IV and transitioned to Cefdinir 300mg BID and completed >10 day course IV/PO and has been discontinued and no need for ongoing abx at [place]...Initially PT/OT rec rehab, denied by insurance and family to appeal but improvement in room and wanting to get to his pre-op appt for knee surgery upcoming and stable per therapy and CM arranged for HH and able to discharge home...Defer to anesthesia for clearance but has completed course of abx and suspect could still undergo scheduled replacement given primary issue w/ ambulation 2nd to OA. Ambulating in room MUCH better when seen prior to [place] 07/12, HH at [place] arranged by CM..." Patient had requested keeping PAT appointment upon discharge same day as above. He reported feeling well without change since discharge. He was advised at PAT appointment there was potential surgery could not proceed and he requested proceeding with appointment including testing in case it could occur as planned. Case discussed in detail with Dr. Phan who advised surgery is to be postponed given recent hospitalization with ongoing evaluation/intervention planned. I contacted patient who verbalized understanding and states he will remain in communication with surgeon's office to re-schedule in the future. Surgeon's office made aware. - Outpatient joint assessment: Patient is currently scheduled for inpatient pathway. If re-evaluated and patient/surgeon requests outpatient pathway, patient is not an acceptable candidate for outpatient joint program. Chart Review Chart Review: Pending: Refer to Additional Notes / Consult section and Patient seen in Pre Admission Testing Teaching & Discussion Pre-Anesthesia Teaching/Discussion Notes: Instructed NPO after midnight before surgery, except medications with 15 cc of water. Medication instructions provided according to the PAT guidelines. History Surgery Operation Date: 07/24/24 07:00 Proposed Procedures p Right Total Knee Arthroplasty - Keanu Lopez MD Height/Weight Height: 6 ft 1 in Weight: 148.2 kg Allergies Allergy/AdvReac Type Severity Reaction Status Date / Time amoxicillin Allergy Intermediate rash Verified 06/30/24 15:40 Penicillins Allergy Intermediate rash Verified 06/30/24 15:40 Medications Home Medications Medication Instructions Recorded Confirmed Last Taken secukinumab 150 mg/mL subcutaneous 300 mg (2 mL) subcut .COMPLEX #6 mL 03/22/22 06/30/24 06/28/24 pen injector (Cosentyx Pen 300 mg/2 pens () Shower Chair #1 ea 10/04/22 06/12/24 Unknown walker (Ultra-Light Rollator misc) #1 ea 10/04/22 06/12/24 Unknown cholecalciferol (vitamin D3) 50 50 mcg PO DAILY 09/09/23 06/30/24 06/30/24 mcg (2,000 unit) capsule cyanocobalamin (vitamin B-12) 1,000 mcg PO DAILY 09/09/23 06/30/24 06/30/24 1,000 mcg tablet multivitamin with minerals 1 cap PO DAILY 09/10/23 06/30/24 06/30/24 lisinopril 5 mg tablet 5 mg PO DAILY #30 tabs 05/16/24 06/30/24 06/30/24 gabapentin 300 mg capsule 300 mg PO TID #90 caps 05/30/24 06/30/24 06/30/24 warfarin 5 mg tablet See Rx Instructions .Route .COMPLEX 05/30/24 06/30/24 06/29/24 aripiprazole 5 mg tablet (Abilify) 5 mg PO DAILY 06/28/24 06/30/24 Unknown duloxetine 60 mg capsule,delayed 60 mg PO QDL 06/28/24 06/30/24 06/29/24 release pantoprazole 40 mg tablet,delayed 40 mg PO DAILY 06/28/24 06/30/24 06/30/24 release alfuzosin 10 mg tablet,extended 10 mg PO QPM 06/30/24 06/30/24 06/29/24 release 24 hr lidocaine 5 % topical patch 1 patch transdermal QAM #15 ea 07/12/24 Unknown phenazopyridine 100 mg tablet 100 mg PO TID PRN pain #20 tabs 07/12/24 Unknown (Pyridium) Past Medical History Medical History (Updated 07/13/24 @ 00:06 by Christi Craven) Acute UTI (urinary tract infection) Asthma denies any inhaler use Benign esophageal stricture hx-resolved BPH loc w urin obs/LUTS Chronic venous insufficiency Degenerative arthritis of knee, bilateral Depression Generalized osteoarthritis GERD (gastroesophageal reflux disease) controlled, stable per pt Hearing deficit Hiatal hernia History of blood transfusion 30 yrs ago History of colitis last episode more than 10 years ago History of kidney stones Hx of deep venous thrombosis 2015>reason for daily coumadin Hx of pancreatitis Hx pulmonary embolism (~2015) reason for coumadin Hydronephrosis 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 Exercise / Class Metabolic Activity III < 4 Walking/Shop/Light housework (ambulates with walker, denies chest discomfort or shortness of breath with usual activities) Past Family History Family History Family/Other Hearing loss Paternal cousins Mother Heart disease Hypertension Family history of reaction to anesthesia difficulty waking after surgery Other Myocardial infarction No family history of bleeding disorder Prostate cancer Denies family history of Ovarian cancer Breast cancer Colorectal cancer Past Surgical History Surgical History (Updated 07/12/24 @ 11:51 by Pattie Isaac PA-C) H/O abdominal surgery August 2023>lap abdominal procedure attempted in [facility] to correct pouch formation "BP dropped/procedure aborted" History of anesthesia reaction August 2023>attemped robotic lap abdomen procedure aborted d/t BP dropping History of appendectomy History of bilateral cataract extraction History of cardiac cath 1994? @ [facility]--no stents; no cardio. History of colonoscopy History of esophagogastroduodenoscopy (EGD) (~06/2021) History of lithotripsy History of tooth extraction all teeth removed S/P cholecystectomy S/P gastroplasty 36 years ago>currently being seen to have this procedure corrected in a few months. S/P hernia repair incisional hernia S/P tonsillectomy History of PONV No Hx of PONV and No Hx of Motion Sickness Social History Smoking Status: Former smoker tobacco type: cigarettes Smoking cigarettes per day: QUIT ~45 + YRS AGO Do You Dip or Chew Tobacco: No Hx Alcohol Use: No Hx Substance Use: No substance use type: does not use Review of Systems Patient denies chest pain, shortness of breath, dyspnea on exertion, fever, chills, cough, wheezing, or palpitations. Physical Exam Vital Signs Vitals BP 125/72 P 69 TEMP 97.5 SP02 97% on RA RESP 18 Physical Patient resting comfortably in chair in no acute distress, alert and oriented, responding appropriately throughout visit Full cervical extension range of motion without pain TMD 3.5 finger breadths Mallampati Score 3 Dentition: edentulous, full upper and lower dentures Lungs: normal respiratory effort. Good air movement, clear throughout to auscultation, no adventitious breath sounds Cardiac: regular rate and rhythm, no murmurs noted Carotid arteries: negative bruit bilat Lab Results Anesthesia Preop Results Results Anesthesia Widget: WBC 5.97 K/ul (4.8-10.8) 07/06/24 Hgb 12.3 g/dl (14.0-18.0) L 07/06/24 Hct 38.7 % (42.0-52.0) L 07/06/24 Plt 190 K/uL (130-400) 07/06/24 Na 141 mmol/L (136-145) 07/12/24 K 4.2 mmol/L (3.5-5.1) 07/12/24 Cl 104 mmol/L (98-107) 07/12/24 CO2 35 mmol/L (21-32) H 07/12/24 BUN 20 mg/dl (6-23) 07/12/24 Creat 1.06 mg/dl (0.6-1.4) 07/12/24 Glucose Level 114 mg/dl (70-99(Fasting)) H 07/12/24 POC Glucose 98 mg/dl (70-99) 05/31/24 PT 16.2 Seconds (9.0-12.0) H 07/12/24 PTT 33 Seconds (21-31) H 07/12/24 INR 1.6 (0.9-1.1) H 07/12/24 TSH 1.743 uIu/ml (0.300-4.500) 05/24/24 HA1c 6.0 % (4.5-5.6) H 05/24/24 Urine Color [place] 06/30/24 Urine Appearance Cloudy (Clear) A 06/30/24 Urine pH 7.0 (4.5-7.5) 06/30/24 Urine Specific [place] > 1.045 (1.000-1.030) H 06/30/24 Urine Protein 3+ (Negative) H 06/30/24 Urine Glucose (UA) Negative (Negative) 06/30/24 Urine Ketones Negative (Negative) 06/30/24 Urine Blood 3+ (Negative) H 06/30/24 Urine Nitrite Negative (Negative) 06/30/24 Urine Bilirubin Negative (Negative) 06/30/24 Urine Urobilinogen Negative (Negative) 06/30/24 Urine Leukocyte Esterase 2+ (Negative) H 06/30/24 Urine WBC (Auto) >50 /hpf (0-5) H 06/30/24 Urine RBC (Auto) >20 /hpf (0-2) H 06/30/24 Urine Hyaline Casts (Auto) 0-2 /lpf (0-2) 06/30/24 Urine Epithelial Cells (Auto) 0-2 /hpf (0-2) 06/30/24 Urine Bacteria (Auto) 4+ (None Seen) H 06/30/24 COVID-19 PCR NEGATIVE (Negative) 05/30/24 Blood Type O Positive 07/12/24 Antibody Screen NEGATIVE 07/12/24 Testing Electrocardiogram Date: 07/02/24 NSR, rate 70 bpm Chest X-Ray Date: 07/12/24 No focal consolidation, infiltrates, or granuloma noted. Echocardiogram Date: 10/03/19 LVEF 60% Difficult study No significant valvular pathology Cervical Spine Date: 12/12/23 Vertebrae: Osteopenia. No acute fracture or subluxation. Discs/spinal canal/neural foramina: Multilevel disc, facet, and uncovertebral joint degeneration. Mild degrees of central spinal canal narrowing, greatest at C4- C5. Varying degrees of bilateral foraminal narrowing, advanced bilaterally at C3-C4 and on the right at C5-C6 and C6-C7.Soft tissues: Unremarkable. IMPRESSION: No acute findings in the cervical spine. Other Testing Abdomen pelvis CT 06/30/24 1. Moderate right hydronephrosis with normal caliber ureter, similar to prior exams. This suggests a chronic UPJ obstruction. Interval development of urothelial thickening of the right collecting system, ureter and bladder suggestive of cystitis and pyelitis. Findings could be correlated with urinalysis. 2. No change in an old small subcapsular renal fluid collection. 3. Hepatic steatosis. 4. No bowel obstruction. Neck CTA 09/01/23 Eccentric atheromatous plaque is seen at right carotid bulb causing its moderate luminal narrowing. No evidence of aneurysm. No evidence of dissection.
--- NOTE | 2024-08-23 12:57 | PAT Medication Instructions ---
Medication Instructions Date of Service August 23, 2024 Home Medications Medication Instructions Recorded secukinumab 150 mg/mL subcutaneous 300 mg (2 mL) subcut .COMPLEX #6 mL 03/22/22 pen injector (Cosentyx Pen 300 mg/2 pens () Shower Chair #1 ea 10/04/22 gabapentin 300 mg capsule 300 mg PO TID #90 caps 05/30/24 walker (Ultra-Light Rollator misc) #1 ea 08/15/24 enoxaparin 40 mg/0.4 mL 40 mg (0.4 mL) subcut Q12H #10 08/16/24 subcutaneous syringe syringes warfarin 5 mg tablet See Rx Instructions .Route 08/23/24 .COMPLEX #100 tabs secukinumab 150 mg/mL subcutaneous pen injector (Cosentyx Pen 300 mg/2 pens () 300 mg (2 mL) subcut .COMPLEX cholecalciferol (vitamin D3) 50 mcg (2,000 unit) capsule 50 mcg PO QAM cyanocobalamin (vitamin B-12) 1,000 mcg tablet 1,000 mcg PO QAM multivitamin with minerals 1 cap PO QAM gabapentin 300 mg capsule 300 mg PO TID aripiprazole 5 mg tablet (Abilify) 5 mg PO QAM duloxetine 60 mg capsule,delayed release 60 mg PO QPM pantoprazole 40 mg tablet,delayed release 40 mg PO QAM alfuzosin 10 mg tablet,extended release 24 hr 10 mg PO QPM enoxaparin 40 mg/0.4 mL subcutaneous syringe 40 mg (0.4 mL) subcut Q12H warfarin 5 mg tablet See Rx Instructions .Route .COMPLEX ASK your prescriber and surgeon enoxaparin 40 mg/0.4 mL subcutaneous syringe 40 mg (0.4 mL) subcut Q12H warfarin 5 mg tablet See Rx Instructions .Route .COMPLEX secukinumab 150 mg/mL subcutaneous pen injector (Cosentyx Pen 300 mg/2 pens () 300 mg (2 mL) subcut .COMPLEX DO NOT take the morning of surgery cholecalciferol (vitamin D3) 50 mcg (2,000 unit) capsule 50 mcg PO QAM cyanocobalamin (vitamin B-12) 1,000 mcg tablet 1,000 mcg PO QAM multivitamin with minerals 1 cap PO QAM Take morning of surgery With a small sip of water, OTHERWISE NOTHING TO EAT OR DRINK AFTER MIDNIGHT: gabapentin 300 mg capsule 300 mg PO TID aripiprazole 5 mg tablet (Abilify) 5 mg PO QAM pantoprazole 40 mg tablet,delayed release 40 mg PO QAM Take evening before surgery gabapentin 300 mg capsule 300 mg PO TID duloxetine 60 mg capsule,delayed release 60 mg PO QPM alfuzosin 10 mg tablet,extended release 24 hr 10 mg PO QPM Other Notes If you have any questions please call us at [phone] or [phone] or [phone] or [phone]
--- NOTE | 2024-08-29 12:37 | Anesthesiology Consultation ---
Date of Service August 29, 2024 Assessment & Plan (1) Encounter for pre-operative examination: Plan - awaiting [place] PCP response to workload note for clearance. - PCP office visit 08/09/24 [place]: "...BP elevated today, recheck 132/83. Since he is closer to normal range in the 120s-130s and significant improvement with dizziness and weakness, will continue to hold his Lisinopril. May need it in the future, but for now will keep him off of it. Continue to use supportive measures for incontinence, void often, even without the urge. Use depends pull-ups...F/u as needed and as scheduled..." - surgery was re-scheduled due to urologic issues of which surgeon is aware. S/p Cystoscopy and Bilateral Retrograde Pyelogram Right Ureteroscopy, Ureteral Dilation, Laser endopyelotomy, Exchange of Stent Catheter - right 07/30/2425 Grade 1 view with head lifted up, MAC 3, ETT 8.0 [facility]. - Outpatient joint assessment: Patient is currently scheduled for inpatient pathway. If re-evaluated and patient/surgeon requests outpatient pathway, patient is not a candidate for outpatient joint program. Chart Review Chart Review: Pending: Refer to Additional Notes / Consult section and Patient seen in Pre Admission Testing Teaching & Discussion Pre-Anesthesia Teaching/Discussion Notes: Instructed NPO after midnight before surgery, except medications with 15 cc of water. Medication instructions provided according to the PAT guidelines. History Surgery Operation Date: 07/30/24 11:50 Proposed Procedures p Cystoscopy, Retrograde Pyelogram, with Possible Uretal Dilation, Laser Destruction or Extracton of the Stone, Insertion or Exchange of Stent Catheter - Bilateral - Tomi Irving DO Operation Date: 09/19/24 07:00 Proposed Procedures p Right Total Knee Arthroplasty - Keanu Lopez MD Height/Weight Height: 6 ft 1 in Weight: 148.7 kg Allergies Allergy/AdvReac Type Severity Reaction Status Date / Time amoxicillin Allergy Intermediate rash Verified 08/23/24 11:19 Penicillins Allergy Intermediate rash Verified 08/23/24 11:19 Medications Home Medications Medication Instructions Recorded Confirmed Last Taken secukinumab 150 mg/mL subcutaneous 300 mg (2 mL) subcut .COMPLEX #6 mL 03/22/22 08/23/24 06/28/24 pen injector (Cosentyx Pen 300 mg/2 pens () Shower Chair #1 ea 10/04/22 08/14/24 Unknown cholecalciferol (vitamin D3) 50 50 mcg PO QAM 09/09/23 08/23/24 07/29/24 08:00 mcg (2,000 unit) capsule cyanocobalamin (vitamin B-12) 1,000 mcg PO QAM 09/09/23 08/23/24 07/29/24 08:00 1,000 mcg tablet multivitamin with minerals 1 cap PO QAM 09/10/23 08/23/24 07/29/24 08:00 gabapentin 300 mg capsule 300 mg PO TID #90 caps 05/30/24 08/23/24 07/29/24 22:00 duloxetine 60 mg capsule,delayed 60 mg PO QPM 06/28/24 08/23/24 07/29/24 12:00 release pantoprazole 40 mg tablet,delayed 40 mg PO QAM 06/28/24 08/23/24 07/29/24 08:00 release alfuzosin 10 mg tablet,extended 10 mg PO QPM 06/30/24 08/23/24 07/29/24 22:00 release 24 hr walker (Ultra-Light Rollator misc) #1 ea 08/15/24 08/15/24 Unknown enoxaparin 40 mg/0.4 mL 40 mg (0.4 mL) subcut Q12H #10 08/16/24 08/16/24 Unknown subcutaneous syringe syringes warfarin 5 mg tablet See Rx Instructions .Route 08/23/24 08/23/24 Unknown .COMPLEX #100 tabs aripiprazole 5 mg tablet (Abilify) 5 mg PO QAM #90 tabs 08/28/24 Unknown Past Medical History Medical History Asthma denies any inhaler use Benign esophageal stricture hx-resolved BPH loc w urin obs/LUTS Chronic venous insufficiency Degenerative arthritis of knee, bilateral Depression Generalized osteoarthritis GERD (gastroesophageal reflux disease) controlled, stable per pt Hiatal hernia History of blood transfusion 30 yrs ago History of colitis last episode more than 10 years ago History of kidney stones Hx of deep venous thrombosis 2015; on coumadin currently Hx of pancreatitis Hx pulmonary embolism (~2015) reason for coumadin 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, 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 Above reviewed and re-confirmed with patient 08/28/24. Exercise / Class Metabolic Activity III < 4 Walking/Shop/Light housework (ambulates with walker, denies chest discomfort or shortness of breath with usual activities) Past Family History Family History Family/Other Hearing loss Paternal cousins Mother Heart disease Hypertension Family history of reaction to anesthesia difficulty waking after surgery Other Myocardial infarction No family history of bleeding disorder Prostate cancer Denies family history of Ovarian cancer Breast cancer Colorectal cancer Past Surgical History Surgical History H/O abdominal surgery August 2023>lap abdominal procedure attempted in [facility] to correct pouch formation "BP dropped/procedure aborted" History of anesthesia reaction August 2023>attemped robotic lap abdomen procedure aborted d/t BP dropping History of appendectomy History of bilateral cataract extraction History of cardiac cath 1994? @ [facility]--no stents; no cardio. History of colonoscopy History of cystoscopy cysto, urethral dilation, R stent placement 07/01/24: [place]: LMA iGel 5 07/30/24: cysto, ureteral dilation, bilat. RP, laser endopyelogram, stent exchange History of esophagogastroduodenoscopy (EGD) (~06/2021) History of lithotripsy History of tooth extraction all teeth removed S/P cholecystectomy S/P gastroplasty 36 years ago>currently being seen to have this procedure corrected in a few months. S/P hernia repair incisional hernia S/P tonsillectomy History of PONV No Hx of PONV and No Hx of Motion Sickness Social History Smoking Status: Never smoker tobacco type: cigarettes Smoking cigarettes per day: QUIT ~45 + YRS AGO Do You Dip or Chew Tobacco: No Hx Alcohol Use: No Hx Substance Use: No substance use type: does not use Review of Systems Patient denies chest pain, shortness of breath, dyspnea on exertion, fever, chills, cough, wheezing, or palpitations. Physical Exam Vital Signs Vitals BP 121/76 P 63 TEMP 97.5 SP02 97% on RA RESP 18 Physical Patient resting comfortably in chair in no acute distress, alert and oriented, responding appropriately throughout visit Full cervical extension range of motion without pain TMD 3.5 finger breadths Mallampati Score 3 Dentition: intact, denies chipped or loose teeth, caps/crowns, implants or bridges Lungs: normal respiratory effort. Good air movement, clear throughout to auscultation, no adventitious breath sounds Cardiac: regular rate and rhythm, no murmurs noted Carotid arteries: negative bruit bilat Lab Results Anesthesia Preop Results Results Anesthesia Widget: WBC 6.50 K/ul (4.8-10.8) 08/09/24 Hgb 13.0 g/dl (14.0-18.0) L 08/09/24 Hct 42.1 % (42.0-52.0) 08/09/24 Plt 187 K/uL (130-400) 08/09/24 Na 143 mmol/L (136-145) 08/09/24 K 3.9 mmol/L (3.5-5.1) 08/09/24 Cl 108 mmol/L (98-107) H 08/09/24 CO2 32 mmol/L (21-32) 08/09/24 BUN 12 mg/dl (6-23) 08/09/24 Creat 1.01 mg/dl (0.6-1.4) 08/09/24 Glucose Level 112 mg/dl (70-99(Fasting)) H 08/09/24 POC Glucose 125 mg/dl (70-99) H 07/30/24 PT 37.0 Seconds (9.0-12.0) H 08/28/24 PTT 44 Seconds (21-31) H 08/28/24 INR 3.8 (0.9-1.1) H 08/28/24 HA1c 5.9 % (4.5-5.6) H 08/28/24 Urine Color [place] 06/30/24 Urine Appearance Cloudy (Clear) A 06/30/24 Urine pH 7.0 (4.5-7.5) 06/30/24 Urine Specific [place] > 1.045 (1.000-1.030) H 06/30/24 Urine Protein 3+ (Negative) H 06/30/24 Urine Glucose (UA) Negative (Negative) 06/30/24 Urine Ketones Negative (Negative) 06/30/24 Urine Blood 3+ (Negative) H 06/30/24 Urine Nitrite Negative (Negative) 06/30/24 Urine Bilirubin Negative (Negative) 06/30/24 Urine Urobilinogen Negative (Negative) 06/30/24 Urine Leukocyte Esterase 2+ (Negative) H 06/30/24 Urine WBC (Auto) >50 /hpf (0-5) H 06/30/24 Urine RBC (Auto) >20 /hpf (0-2) H 06/30/24 Urine Hyaline Casts (Auto) 0-2 /lpf (0-2) 06/30/24 Urine Epithelial Cells (Auto) 0-2 /hpf (0-2) 06/30/24 Urine Bacteria (Auto) 4+ (None Seen) H 06/30/24 Blood Type O Positive 08/28/24 Antibody Screen NEGATIVE 08/28/24 Testing Laboratory Results Anticoagulation team notified of 08/28/24 coags. Electrocardiogram Date: 07/02/24 NSR, rate 70 bpm Chest X-Ray Date: 07/12/24 No focal consolidation, infiltrates, or granuloma noted. Echocardiogram Date: 10/03/19 LVEF 60% Difficult study No significant valvular pathology Cervical Spine Date: 12/12/23 Vertebrae: Osteopenia. No acute fracture or subluxation. Discs/spinal canal/neural foramina: Multilevel disc, facet, and uncovertebral joint degeneration. Mild degrees of central spinal canal narrowing, greatest at C4- C5. Varying degrees of bilateral foraminal narrowing, advanced bilaterally at C3-C4 and on the right at C5-C6 and C6-C7.Soft tissues: Unremarkable. IMPRESSION: No acute findings in the cervical spine. Other Testing Abdomen pelvis CT 06/30/24 1. Moderate right hydronephrosis with normal caliber ureter, similar to prior exams. This suggests a chronic UPJ obstruction. Interval development of urothelial thickening of the right collecting system, ureter and bladder groves ggestive of cystitis and pyelitis. Findings could be correlated with urinalysis. 2. No change in an old small subcapsular renal fluid collection. 3. Hepatic steatosis. 4. No bowel obstruction. Neck CTA 09/01/23 Eccentric atheromatous plaque is seen at right carotid bulb causing its moderate luminal narrowing. No evidence of aneurysm. No evidence of dissection.
--- NOTE | 2024-09-13 07:55 | History & Physical Report ---
Date of Service September 13, 2024 Assessment & Plan (1) Bilateral primary osteoarthritis of knee: 79-year-old gentleman with multiple medical comorbidities including chronic venous stasis changes, history of DVT in the past on anticoagulation and chronic venous stasis changes with advanced right knee arthritis. Failed conservative treatment. He strongly desiring knee replacement surgery. He had been previously scheduled but canceled due to some urological issues which have now been cleared up. He would like to proceed with right knee replacement. His legs have been cleaned of any open wounds or sores for over 6 months. Have to be very careful to try to manage his venous disease. Plan: Working to take him to the operating room do a right knee replacement. The risks met this procedure planed. Informed consent is obtained. Will use Coumadin for DVT prophylaxis as he is on that already. He will have to be treated with a Lovenox bridge and this has been designed by the anticoagulation clinic. Will likely put some antibiotics in the cement. I will see him back 2 weeks postop. (2) Morbid obesity: History of Present Illness Chief Complaint: . Bilateral knee pain discomfort right side greater than left. Primary Care Provider: Henry Prieto DO . The patient is a 79-year-old gentleman with multiple medical comorbidities currently on anticoagulation who presents for surgical treatment of his knees, most specifically his right knee. A Matt a long-term patient of ours we have been treated with injections over the years which would become less successful. He has chronic venous stasis changes distally and has not really been a surgical candidate as a result. Over the past year or so he has worked hard on trying to improve his situation and he has not had any problems with leg wounds for the past 6 months. He strongly desiring to proceed with right knee replacement. He was actually scheduled previously but to have a urological emergency with pyelonephritis and had to have a stent placed. The stents now been removed. Apparently his urological systems cleared up and would like to proceed with knee replacements. 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 He has no known clotting disorder. He does not have an anticoagulation schedule as per Dr. Yamini marinelli do. Allergies Allergy/AdvReac Type Severity Reaction Status Date / Time amoxicillin Allergy Intermediate rash Verified 08/23/24 11:19 Penicillins Allergy Intermediate rash Verified 08/23/24 11:19 Home Medications Medication Instructions Recorded Confirmed Type secukinumab 150 mg/mL subcutaneous 300 mg (2 mL) subcut .COMPLEX #6 mL 03/22/22 09/11/24 Rx pen injector (Cosentyx Pen 300 mg/2 pens () Shower Chair #1 ea 10/04/22 09/11/24 Rx cholecalciferol (vitamin D3) 50 50 mcg PO QAM 09/09/23 09/11/24 History mcg (2,000 unit) capsule cyanocobalamin (vitamin B-12) 1,000 mcg PO QAM 09/09/23 09/11/24 History 1,000 mcg tablet multivitamin with minerals 1 cap PO QAM 09/10/23 09/11/24 History gabapentin 300 mg capsule 300 mg PO TID #90 caps 05/30/24 09/11/24 Rx duloxetine 60 mg capsule,delayed 60 mg PO QPM 06/28/24 09/11/24 History release pantoprazole 40 mg tablet,delayed 40 mg PO QAM 06/28/24 09/11/24 History release walker (Ultra-Light Rollator misc) #1 ea 08/15/24 09/11/24 Rx enoxaparin 40 mg/0.4 mL 40 mg (0.4 mL) subcut Q12H #10 08/16/24 09/11/24 Rx subcutaneous syringe syringes aripiprazole 5 mg tablet (Abilify) 5 mg PO QAM #90 tabs 08/28/24 09/11/24 Rx alfuzosin 10 mg tablet,extended 10 mg PO QPM #90 tabs 09/05/24 09/11/24 Rx release 24 hr warfarin 5 mg tablet See Rx Instructions .Route .COMPLEX 09/11/24 History Past Med/Surg History Problem List Hydronephrosis Right rotator cuff tear Bilateral primary osteoarthritis of knee Abnormal ankle brachial index (Acute) Constipation Lumbar radiculopathy, right Erectile dysfunction Increased urinary frequency Arthritis Chronic diarrhea Fatty infiltration of liver Morbid obesity (Chronic) BMI 42 Medical History Orthostatic hypotension noted by PCP 07/16/24 visit; lisinopril D/C; monitoring Morbid obesity History of blood transfusion 30 yrs ago Prediabetes diet controlled per pt Low iron hx>iron infusions in past Short-term memory loss "mild" Psoriatic arthritis Lumbar radiculopathy Physical debility uses cane/walker to ambulate Sacroiliitis Chronic venous insufficiency 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, stable per pt care home current use of 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 Degenerative arthritis of knee, bilateral Depression Sleep apnea does not use device BPH loc w urin obs/LUTS Hx of deep venous thrombosis 2015; on coumadin currently GERD (gastroesophageal reflux disease) controlled, stable per pt Hx pulmonary embolism (~2015) reason for coumadin Lumbago Hx of pancreatitis Generalized osteoarthritis Hiatal hernia Scoliosis History of kidney stones History of colitis last episode more than 10 years ago Macular degeneration Lumbar spondylosis Metabolic syndrome SNHL (sensorineural hearing loss) Asthma denies any inhaler use Benign esophageal stricture hx-resolved Surgical History History of cystoscopy cysto, urethral dilation, R stent placement 07/01/24: [place]: LMA iGel 5 07/30/24: cysto, ureteral dilation, bilat. RP, laser endopyelogram, stent exchange History of anesthesia reaction August 2023>attemped robotic lap abdomen procedure aborted d/t BP dropping H/O abdominal surgery August 2023>lap abdominal procedure attempted in [facility] to correct pouch f ormation "BP dropped/procedure aborted" History of lithotripsy History of appendectomy History of esophagogastroduodenoscopy (EGD) (~06/2021) History of colonoscopy History of tooth extraction all teeth removed History of bilateral cataract extraction History of cardiac cath 1994? @ [facility]--no stents; no cardio. S/P tonsillectomy S/P hernia repair incisional hernia S/P gastroplasty 36 years ago>currently being seen to have this procedure corrected in a few months. S/P cholecystectomy Family History Family/Other Hearing loss Paternal cousins Mother Heart disease Hypertension Family history of reaction to anesthesia difficulty waking after surgery Other Myocardial infarction No family history of bleeding disorder Prostate cancer Denies family history of Ovarian cancer Breast cancer Colorectal cancer Social History Smoking Status: Never smoker Tobacco Type: Cigarettes Age Started Using Tobacco: 16; Age Quit Using Tobacco: 30; packs per day: 1; Cigarettes Per Day: QUIT ~45 + YRS AGO; Second Hand Exposure: No; Do You Dip or Chew Tobacco: No; Hx Alcohol Use: No Hx Substance Use: No Preferred Language: Monegasque Communication Ability: Effective Visual Impairment: Limited Hearing Ability: Use of Hearing Aid Taxation Economist Required: No Beliefs That Will Affect Care: None marital status: Current Living Situation: Alone Current Living Situation Comment: 2 roommates current occupational status: retired How many Children do You have: 1 Feels Safe at Home: Yes Childhood Exposure to Second-Hand Smoke: Yes Diet: regular caffeine: No Dental Care, Regularly: No Physical Activity Frequency: Does not Exercise Seatbelt Use: always Sunscreen Use: Yes Assistive Devices: Cane, Denture - Upper, Denture - Lower, Glasses and Walker Review of Systems All systems reviewed & are unremarkable except as noted in HPI & below. Physical Exam . Physical examination reveals a pleasant fairly large middle-age male. He a mbulates with use of a cane. Examination of the right knee and leg reveals some chronic venous stasis changes distally below the knee. No open wounds. No real major edema but just some discoloration. He is got valgus alignment to his knee. Small knee effusion. Range of motion 5-1 25. No instability. No particular pain with hip motion. Constitutional WD/WN, vitals as above Respiratory normal respiratory effort, lungs clear to auscultation Cardiovascular RRR, no murmur, no edema Gastrointestinal (Abdomen) normal bowel sounds, soft, nontender, no hepatosplenomegaly Results & Data Results & Data Laboratory Results . Diagnostic Findings . X-rays of the right knee reviewed. Shows advanced right knee lateral compartment DJD. Got complete loss of his lateral joint space. He has got osteophytes anteriorly as well as posteriorly. PG Care Time/CCT Total # of Minutes Spent Total Time Spent with Patient: Total time spent is greater than 50% in coordination of care (as documented) at patient's floor/unit and/or counseling patient: Coding Level of Care Code None Diagnoses Bilateral primary osteoarthritis of knee M17.0 Morbid obesity E66.01
[~2024-09-19 10:23] MED LIST: BUPIVACAINE 0.25% PF 30 ML VIAL ONE; BUPIVACAINE 0.5 % 5 MG/1 ML PF 10ML VIAL ONE; Nursing to Pharmacy Communication SCH
[2024-09-19] MEDS: METOCLOPRAMIDE HCL 10 MG TABLET PO SCH (10:50)
[2024-09-19] MEDS: CeleBREX 200 MG CAP PO SCH (10:50)
[2024-09-19] MEDS: FAMOTIDINE 20 MG TAB PO SCH (10:50)
[2024-09-19] MEDS: ACETAMINOPHEN 500 MG TAB PO SCH ×2 (10:50→21:34)
[2024-09-19 11:01] LABS: INR 1.1 (0.9-1.1); Partial Thromboplastin Time 28 Seconds (21-31); Prothrombin Time 11.9 Seconds (9.0-12.0)
[2024-09-19] MEDS: LR 500ML BOLUS, THEN 15ML/HR IV SCH (11:05)
[2024-09-19] MEDS: dexAMETHasone**PF** 10 MG/ML VIAL IV SCH (11:05)
--- NOTE | 2024-09-19 11:05 | History & Physical Bridge Note ---
Date of Service September 19, 2024 History & Physical Bridge Note I have examined the patient, reviewed the History & Physical and in the interval since the performance of the History & Physical I have noted the following changes of clinical significance: no changes noted
[2024-09-19] MEDS: LR 60ML/HR IV SCH (11:06)
[2024-09-19] MEDS ORDERED: fentaNYL citrate PF 100 MCG/2 ML VIAL ONE (12:28)
[2024-09-19] MEDS ORDERED: MIDAZOLAM HCL 1 MG/ML 2ML VIAL ONE ×2 (12:28→13:01)
[2024-09-19] MEDS ORDERED: ePHEDrine sulfate 50 MG/ML AMP IV PRN (12:37)
[2024-09-19] MEDS ORDERED: ATROPINE SULFATE 0.1 MG/ML 10ML SYR IV PRN (12:37)
[2024-09-19] MEDS ORDERED: PROMETHAZINE HCL 6.25 MG in SODIUM CHLORIDE 0.9% 50 ML IV PRN (12:37)
[2024-09-19] MEDS ORDERED: ONDANSETRON INJ 2 MG/ML 2 ML VIAL IV PRN ×2 (12:37→17:26)
[2024-09-19] MEDS: ceFAZolin 3000MG 3,000 MG/72.5 ML BAG IV SCH (13:43)
[2024-09-19] MEDS: ORTHO JOINT ANESTHETIC ONE (14:18)
[2024-09-19] MEDS: ROPIV 0.5% 246mg, Ketorolac 30mg, EPINEPHrine 0.5mg in NSS INFIL SCH (14:18)
[2024-09-19] MEDS: VANCOMYCIN HCL 1000MG/20ML VIAL ONE (14:18)
[2024-09-19] MEDS: TRANEXAMIC ACID 1,000 MG **IV Intra-op IV SCH (14:36)
[2024-09-19] MEDS ORDERED: LIDOCAINE 2% 2 ML VIAL/AMP(20MG/ML) INFIL ONE (14:40)
[2024-09-19] MEDS ORDERED: PROPOFOL IV EMULSION 10 MG/ML 100 ML VIAL IV ONE (14:40)
[2024-09-19] MEDS ORDERED: SUCCINYLCHOLINE CHLORIDE 20 MG/ML 10 ML VIAL IV ONE (14:40)
[2024-09-19] MEDS ORDERED: LABETALOL HCL IV 5 MG/ML 20ML IV ONE (14:47)
[2024-09-19] MEDS ORDERED: PROPOFOL IV EMULSION 10 MG/ML 20 ML VIAL IV ONE (14:52)
[2024-09-19] MEDS ORDERED: ROCURONIUM BROMIDE 10 MG/ML 5 ML VIAL IV ONE ×2 (15:09→15:59)
--- NOTE | 2024-09-19 15:34 | Operative Report ---
PG Post Operative Report Pre & Post Diagnosis Operation Date: 09/19/24 12:30 Pre-Op Diagnosis: Right Knee Osteoarthritis Post-Op Diagnosis: Right Knee Osteoarthritis I identified the patient and participated in the time-out.: Yes Procedure Operation Date: 09/19/24 12:30 Actual Procedures p Right Total Knee Arthroplasty(Right) - Keanu Lopez MD Surgeon Keanu Lopez MD Delivery Director Nik Orlando PA-C Estimated Blood Loss 50 Findings Consistent with Post-Op Diagnosis Operative findings reveal advanced right knee DJD. He had extensive grade 4 [id number] disease of the lateral compartment with a fixed valgus deformity to his knee and a large knee joint effusion. Specimens Right knee sent for pathology. Anesthesia Type General Regional Complications none Disposition Accompanied Patient To Recovery: No Indications Patient is a 79-year-old gent with multiple medical comorbidities who said a several year history of increasing right knee pain and discomfort is become more debilitating over time. Failed conservative measures. He has chronic venous changes in his legs and we required him to be completely wound free for at least 6 months. He was able to achieve this and we had previously scheduled for surgery but had to cancel due to some urological issues. The urological issues has not been cleared up. The leg continues to look well-healed and he will proceed with total knee arthroplasty. Description of Procedure Operative implants consists of: 1. Biomet Vanguard size 70 right posterior stabilized femoral component. 2. Biomet size 75 tibial tray. 3. 10 mm posterior stabilized polyethylene insert. 4. 31 x 8 all poly patella. The patient was taken the operating, identified, placed on the operating table in the supine position. All conductors were appropriately padded. IV antibiotics fibra anesthesia team. Spinal anesthetic had been put in the holding area along with a adductor canal block. A right thigh tourniquet was then placed to the right lower extremity was then prepped and draped in usual sterile fashion. The right leg was elevated and exsanguinated with use of an Esmarch. The tourniquet was placed at 300 mmHg. An anterior approach of the right knee was then performed to longitudinal incision centered over the patella. Upon making the incision the patient was clearly feeling this so a general anesthetic was implemented. We then proceeded. A medial parapatellar arthrotomy incision was made. Some subperiosteal dissection was carried out medially. The fat pad was dissected beneath patella tendon. Lateral patellofemoral ligament was released. Patella subluxated laterally and the knee was flexed. The osteophytes were taken off distal femur. ACL and PCL were then released from distal femur and the tibia subluxated anteriorly. The external treatment LYMErix then placed on the anterior face of the tibia and adjusted 12 mm medially. Proximal tibial cut was made to move about 3 to 4 mm of bone from the medial side. Tibia sized to a size 75. Attention is then drawn to the femur. The distal femur is over the sharp drill. Intramedullary canal was suction. A right 5 degree valgus cutting guide was placed. Distal femoral cutting block was pinned in place. The distal femoral cut was made to take an additional 3 mm of bone off distal femur. The femur was then sized to a size 70. The AP cutting block was pinned parallel to the epicondylar axis which was 4 degrees of external rotation. The anterior cut, anterior chamfer, posterior cut, posterior chamfer cuts were made. The box cutting guide was placed and just slightly laterally. The box cut was made. The knee was flexed. The remnants of the medial lateral menisci were excised. The osteophytes were taken off the posterior aspect of femur. I did release the popliteus in order to equalize the flexion gap. The trial femoral component was then placed. The tibial tray was pinned in Iesha external rotation and the drill and stem punch use great defect in the proximal tibia for the tibial tray. Knee was then trialed in the 10 mm insert fit most appropriately. Attention drawn the patella. Patella was cleaned of all soft tissues. Patella thickness measured 24 mm in thickness was cut down to 15. Was sized to a size 31 patella. The lug holes were drilled for 31 patella. The lateral osteophytes removed. Patella button was placed. Knee was taken through range of motion patella tracked nicely with no thumbs test. Attention drawn to placement permanent components. All trial components were removed. Bone plug was placed into the distal femur limb of blood loss. A double batch Palko T cement was mixed. A Biomet Vanguard size 70 right posterior stabilized femoral component, size 75 tibial tray, a 10 mm posterior stabilized polyethylene insert, and a 31 x 8 all poly patella then cemented in place. The knee was brought out into full extension till cement hardened. Final cement check was then performed. The pericapsular tissues were injected with a total of 100 cc of Ortho mix. The patient did receive 1 g tranexamic acid. The tourniquet was then let down for final tourniquet time of 53 minutes. Hemostasis assured with electrocautery. Extensor Meclomen closed with combination 1 PDS suture and 1 Vicryl suture in a [id number] fashion. Extensor Meclomen checked found to be intact with subcutaneous tissue then closed with 2 Dexon suture in a buried interrupted fashion skin was closed skin joelle. Leg was then cleaned and dried and a sterile dressing with Xeroform, 4 fours, sterile cast padding, Jian bandage were applied. Patient was then brought out of general anesthesia and transferred to the recovery room in stable condition. Patient tolerated the procedure well and there are no complications. Nik Orlando, my physician clerical dentist assistant, was present for the entire procedure. His assistance was essential and required for appropriate patient positioning, prepping and draping, surgical exposure, performing the technical details of the operation, placement the implants, closure of the wound, and placement of the sterile bandage. I attest to the content of the Intraoperative Record and any orders documented therein. Any exceptions are noted below.
[2024-09-19] MEDS ORDERED: FLUMAZENIL 0.1 MG/1 ML 10 ML VIAL IV ONE (15:59)
--- NOTE | 2024-09-19 16:10 | XRay Report ---
Study: Right knee 2 views History: Postop Comparison: None Findings/impression: There is no acute fracture or dislocation. Postoperative fluid and air is seen. The arthroplasty components appear intact. Electronically signed by Kory Santos 09-19-2024 4:10 PM
[2024-09-19] MEDS: fentaNYL citrate PF 100 MCG/2 ML VIAL IV PRN (16:21)
--- NOTE | 2024-09-19 16:32 | Anesthesiology Progress Note ---
Date of Service September 19, 2024 Anesthesia Post Procedure Vital Signs Vital Signs: Temp Pulse Pulse Resp BP Pulse Ox O2 Del Method 09/19/24 16:20 64 16 150/73 H 92 Room Air 09/19/24 16:10 66 17 158/64 H 98 Oxymask 09/19/24 16:00 64 20 144/70 H 97 Oxymask 09/19/24 15:51 36 C L 62 21 124/62 96 Oxymask 09/19/24 10:38 36.6 C 99 H 20 163/88 H 97 Room Air O2 Flow Rate 09/19/24 16:20 09/19/24 16:10 5 09/19/24 16:00 5 09/19/24 15:51 5 09/19/24 10:38 Pain Intensity Right Knee: Pain Intensity: 8 Transfer of Care Handoff Completed per policy Notes Mental Status: alert / awake / arousable and participated in evaluation Patient Amnestic to Procedure: Yes Nausea / Vomiting: adequately controlled Pain: adequately controlled Airway Patency, RR, SpO2: stable & adequate BP & HR: stable & adequate Hydration State: stable & adequate Neuraxial Anesthesia: was administered and sensory block resolved Anesthetic Complications: no major complications apparent and Pt Satisfied with anesthetic care
[2024-09-19] MEDS ORDERED: SECUKINUMAB 150 MG/ML SQ SCH (17:26)
[2024-09-19] MEDS ORDERED: METOCLOPRAMIDE HCL INJ 5 MG/ML 2 ML VIAL IV PRN (17:26)
[2024-09-19] MEDS ORDERED: bisacodyL 10 MG SUPP PR PRN (17:26)
[2024-09-19] MEDS ORDERED: TAMSULOSIN HCL 0.4 MG CAP PO PRN (17:26)
[2024-09-19] MEDS ORDERED: NALOXONE HCL 0.4 MG/1 ML VIAL/CARP IV PRN (17:26)
[2024-09-19] MEDS: HYDROmorphone INJ 2 MG/ML SYR/VIAL IV PRN (17:52)
[2024-09-19] MEDS: SODIUM CHLORIDE 0.9% 1,000 ML IV SCH (18:36)
[2024-09-19] MEDS: ASCORBIC ACID 500 MG TAB PO SCH (18:38)
[2024-09-19] MEDS: WARFARIN SOD 10 MG TAB PO ONE (18:38)
[2024-09-19] MEDS: KETOROLAC TROMETHAMINE 15 MG/ML VIAL IV SCH (18:41)
[2024-09-19] MEDS: ALLERGY Noted to ORDERED Medication SCH (19:16)
[2024-09-19] MEDS ORDERED: SENNA 8.6 MG TAB PO SCH (21:00)
[2024-09-19] MEDS: TRANEXAMIC ACID / 0.7% NACL 1,000 MG/100 ML BAG IV SCH (21:32)
[2024-09-19] MEDS: ceFAZolin 2000MG 2,000 MG/15 ML SYR IV SCH (21:33)
[2024-09-19] MEDS: SENNA 8.6 MG TAB PO SCH (21:35)
[2024-09-19] MEDS: TAMSULOSIN HCL 0.4 MG CAP PO SCH (21:35)
[2024-09-19] MEDS: DOCUSATE SODIUM 100 MG CAP PO SCH (21:35)
[2024-09-19] MEDS: GABAPENTIN 300 MG CAP PO SCH (21:35)
[2024-09-19] MEDS: DULoxetine HCL 60 MG CAP PO SCH (21:36)
[2024-09-20] MEDS: oxyCODONE HCL IR 5 MG TAB (IMMEDIATE RELEASE) PO PRN (03:12)
[2024-09-20 06:40] LABS: Hematocrit (blood only) 36.9 % (42.0-52.0); Hemoglobin 11.6 g/dl (14.0-18.0); Mean Corpuscular Hemoglobin 26.2 pg (25.0-34.0); Mean Corpuscular Hgb Conc 31.4 g/dL (32.0-36.0); Mean Corpuscular Volume 83.5 fL (80.0-100.0); Mean Platelet Volume 9.8 fL (9.4-12.4); Platelet Count 178 K/uL (130-400); RDW Coefficient of Variation 15.1 % (11.5-14.5); RDW Standard Deviation 45.7 fL (36.4-46.3); Red Blood Count 4.42 M/uL (4.70-6.10); White Blood Count 14.86 K/ul (4.8-10.8)
[2024-09-20 06:58] LABS: INR 1.1 (0.9-1.1)
[2024-09-20 07:03] LABS: BUN Creatinine Ratio 17.9 (10-20); Calcium 8.7 mg/dl (8.6-10.3); Creatinine Clr Calc Pharmacy 86.6 ml/min; Potassium 4.3 mmol/L (3.5-5.1)
[2024-09-20] MEDS: CYANOCOBALAMIN (B-12) 500 MCG TABLET PO SCH (07:59)
[2024-09-20] MEDS: CEROVITE ADV FORMULA TAB PO SCH (07:59)
[2024-09-20] MEDS: CHOLECALCIFEROL 25 MCG (1000 UNITS) TAB PO SCH (07:59)
[2024-09-20] MEDS: ARIPiprazole 5 MG TAB PO SCH (07:59)
[2024-09-20] MEDS: MULTIVITAMIN TAB PO SCH (08:00)
[2024-09-20] MEDS: dexAMETHasone 10 MG in SYRINGE 0 ML IV SCH (08:00)
[2024-09-20] MEDS: PANTOprazole 40 MG TAB PO SCH (08:00)
--- NOTE | 2024-09-20 08:37 | Orthopedic Progress Note ---
Date of Service September 20, 2024 Assessment & Plan (1) Status post total right knee replacement: * Continue Current Treatment * Disposition: rehab * Daily treatment: Physical Therapy/ Occupational Therapy per protocol * Weight bearing status: WBAT RLE * Continue to monitor for ABLA * Pain control * DVT prophylaxis: resume Coumadin, one more dose of Lovenox today then august d/c * Office/hospital f/u 2 weeks for progress check and staple/suture removal * Plan for discharge to rehab pending PT/OT clearance, placement Subjective .Active Problems: S/p right TKA 79 y/o male s/p right TKA. Doing well overall, pain managed and improved function. Denies fever/chills, chest pain/SOB, nausea/vomiting. Otherwise no complaints. Review of Systems All systems reviewed & are unremarkable except as noted in HPI & below. Physical Exam . * General: Alert and oriented, no acute distress * Constitutional: well-developed, well-nourished. * Respiratory: Normal respiratory effort, no distress * Gastrointestinal: No tenderness to palpation, no rigidity or guarding. * Skin: No rash or lesion. * Neurologic: Grossly normal * Musculoskeletal: Right knee surgical dressing CDI, not removed for exam. Otherwise no obvious deformity or overlying skin changes to RLE noted. Mild diffuse TTP distal thigh and knee region. Otherwise no specific tenderness of the proximal thigh, lower leg/calf, foot/ankle. AROM knee flexion 0-100 degrees with mild pain. AROM foot/ankle intact. Sensation intact plantar/dorsal foot. Brisk capillary refill. Results & Data Results & Data Laboratory Results . Diagnostic Findings . Knee X-Ray 09/19/24 15:26 Study: Right knee 2 views History: Postop Comparison: None Findings/impression: There is no acute fracture or dislocation. Postoperative fluid and air is seen. The arthroplasty components appear intact. Electronically signed by Kory Santos 09-19-2024 4:10 PM PG Care Time/CCT Total # of Minutes Spent Total Time Spent with Patient: Total time spent is greater than 50% in coordination of care (as documented) at patient's floor/unit and/or counseling patient: Coding Level of Care Code 83407 Post Operative Follow-Up Diagnoses Status post total right knee replacement Z96.651
[2024-09-20] MEDS: SODIUM CHLORIDE 0.9% 250 ML IV ONE (11:10)
[2024-09-20] MEDS: MICONAZOLE NITRATE POWDER 85 GM EXT SCH (11:13)
[2024-09-20] MEDS: traMADol HCL 50 MG TABLET PO PRN (11:29)
[2024-09-20] MEDS: WARFARIN SOD 10 MG TAB PO ONE (15:50)
[2024-09-20] MEDS: ENOXAPARIN INJ 40 MG/0.4 ML SYR SQ ONE (15:50)
--- NOTE | 2024-09-21 07:26 | Orthopedic Progress Note ---
Date of Service September 21, 2024 Assessment & Plan (1) Status post total right knee replacement: * Continue Current Treatment * Disposition: rehab/SNF * Daily treatment: Physical Therapy/ Occupational Therapy per protocol * Weight bearing status: WBAT RLE * Continue to monitor for ABLA * Pain control, Tramadol * Orthostatic hypotension: discussed with cardiology, will follow as outpatient * DVT prophylaxis: continue home dose Coumadin, d/c Lovenox * Office/hospital f/u 2 weeks for progress check and staple/suture removal * Plan for discharge to rehab/SNF pending PT/OT clearance, placement Subjective . Active Problems: S/p R TKA 79 y/o malr s/p right TKA. Doing well overall, pain managed and improved function. Denies fever/chills, chest pain/SOB, nausea/vomiting. Otherwise no complaints.Awaits rehab/SNF placement. Review of Systems All systems reviewed & are unremarkable except as noted in HPI & below. Physical Exam . * General: Alert and oriented, no acute distress * Constitutional: well-developed, well-nourished. * Respiratory: Normal respiratory effort, no distress * Gastrointestinal: No tenderness to palpation, no rigidity or guarding. * Skin: No rash or lesion. * Neurologic: Grossly normal * Musculoskeletal: Right knee surgical dressing CDI, not removed for exam. Otherwise no obvious deformity or overlying skin changes to RLE noted. Mild diffuse TTP distal thigh and knee region. Otherwise no specific tenderness of the proximal thigh, lower leg/calf, foot/ankle. AROM knee flexion 0-100 degrees with mild pain. AROM foot/ankle intact. Sensation intact plantar/dorsal foot. Brisk capillary refill. Results & Data Results & Data Laboratory Results . Diagnostic Findings . PG Care Time/CCT Total # of Minutes Spent Total Time Spent with Patient: Total time spent is greater than 50% in coordination of care (as documented) at patient's floor/unit and/or counseling patient: Coding Level of Care Code 72746 Post Operative Follow-Up Diagnoses Status post total right knee replacement Z96.651
[2024-09-21 07:36] LABS: INR 1.6 (0.9-1.1); Prothrombin Time 16.7 Seconds (9.0-12.0)
[2024-09-21] MEDS: ENOXAPARIN INJ 40 MG/0.4 ML SYR SQ SCH (08:19)
[2024-09-21] MEDS: MAGNESIUM HYDROXIDE SUSP 30 ML UDC PO PRN (12:04)
[2024-09-21] MEDS: WARFARIN SOD 5 MG TAB PO SCH (15:31)
[2024-09-22 06:44] LABS: INR 1.8 (0.9-1.1); Prothrombin Time 18.7 Seconds (9.0-12.0)
--- NOTE | 2024-09-22 07:58 | Orthopedic Progress Note ---
Date of Service September 22, 2024 Assessment & Plan (1) Status post total right knee replacement: Plan: 79-year-old gentleman with multiple medical comorbidities now postop day 3 from a right total knee replacement. Orthopedically is doing well. Really just wait for placement. Plan: 1. DVT prophylaxis including Thiede teds, SCDs, and Coumadin. Currently on Lovenox until Coumadin is therapeutic. INR is 1.8 today. Will likely stop Lovenox to avoid excessive bleeding 2. PT/OT. Weight-bear as tolerated right total knee protocol. 3. Pain control. Doing okay with current pain regimen. 4. Disposition. Plan to discharge to a care home facility when bed available. Admission and Anticipated Discharge Date Admission Date: September 19, 2024 Subjective 79-year-old gentleman postop day 3 from a right knee replacement. He is doing pretty well. Pains been controlled. No chest pain or shortness of breath. Really just waiting for placement. He has been approved for care home but no beds available. Physical Exam Physical Exam: Physical nation was a pleasant elderly male. He sitting on his bedside eating breakfast. Looks comfortable. Examination of the right leg reveals a dressing be clean dry and intact. He can dorsiflex and plantarflex his foot appropriately. He is neurologically intact. Results & Data Vital Signs (Past 12 Hours) Vital Signs Temp Pulse Resp BP Pulse Ox O2 Del Method 09/22/24 07:36 36.3 C L 66 16 155/73 H 94 Room Air Laboratory Results PT is 18.7. INR 1.8.
[2024-09-22] MEDS: ALUMINUM/MAGNESIUM SUSP 30 ML UDC PO PRN (09:49)
[2024-09-23] MEDS: HYDROmorphone INJ 0.5 MG/0.5 ML SYR IV PRN (00:06)
--- NOTE | 2024-09-23 07:49 | Orthopedic Progress Note ---
Date of Service September 23, 2024 Assessment & Plan (1) Status post total right knee replacement: Plan: 79-year-old gentleman with multiple medical comorbidities now 4 days out from a total knee replacement orthopedically doing well. Pain is controlled. He is neurologically intact. He is back on his normal Coumadin dose. Plan: 1. DVT prophylaxis including thigh-high teds, SCDs, and he is back on his normal dose of Coumadin. 2. PT/OT. Weight-bear as taught. Right total knee protocol. 3. Pain control. Doing well with current pain regimen. 4. For disposition. Just waiting for placement. Believe send of care has a place available early next week. Admission and Anticipated Discharge Date Admission Date: September 19, 2024 Subjective 79-year-old gentleman postop day 4 from a right total knee replacement. He is doing pretty well. Pain is controlled. Really just wait for placement. No chest pain or shortness of breath. Pain has been controlled. Results & Data Vital Signs (Past 12 Hours) Vital Signs Temp Pulse Resp BP Pulse Ox O2 Del Method 09/23/24 07:16 36.6 C 65 16 133/71 97 Room Air 09/22/24 21:31 36.4 C L 71 16 128/64 98 Room Air Laboratory Results INR report this morning is pending.
[2024-09-23 07:50] LABS: INR 1.6 (0.9-1.1); Prothrombin Time 16.5 Seconds (9.0-12.0)
--- NOTE | 2024-09-24 09:12 | Orthopedic Progress Note ---
Date of Service September 24, 2024 Assessment & Plan (1) Status post total right knee replacement: * Continue Current Treatment * Disposition: rehab/SNF * Daily treatment: Physical Therapy/ Occupational Therapy per protocol * Weight bearing status: WBAT RLE * Local wound care PRN for incision, blister * Pain control, Tramadol * Orthostatic hypotension: discussed with cardiology, will follow as outpatient * DVT prophylaxis: continue home dose Coumadin * Office/hospital f/u 2 weeks for progress check and staple/suture removal * Plan for discharge to rehab/SNF pending PT/OT clearance, placement Subjective Active Problems: S/p R TKA 79 y/o male s/p right TKA. Doing well overall, pain managed and improved function. Denies fever/chills, chest pain/SOB, nausea/vomiting. Otherwise no complaints.Awaits rehab/SNF placement. Review of Systems All systems reviewed & are unremarkable except as noted in HPI & below. Physical Exam * General: Alert and oriented, no acute distress * Constitutional: well-developed, well-nourished. * Respiratory: Normal respiratory effort, no distress * Gastrointestinal: No tenderness to palpation, no rigidity or guarding. * Skin: No rash or lesion. * Neurologic: Grossly normal * Musculoskeletal: Right knee surgical dressing CDI, not removed for exam. DESMOND stocking removed, small intact blister to anterior thompson. Otherwise no obvious deformity or overlying skin changes to RLE noted. Mild diffuse TTP distal thigh and knee region. Otherwise no specific tenderness of the proximal thigh, lower leg/calf, foot/ankle. AROM knee flexion 0-110 degrees with mild pain. AROM foot/ankle intact. Sensation intact plantar/dorsal foot. Brisk capillary refill. Results & Data Results & Data Laboratory Results . Diagnostic Findings . PG Care Time/CCT Total # of Minutes Spent Total Time Spent with Patient: Total time spent is greater than 50% in coordination of care (as documented) at patient's floor/unit and/or counseling patient: Coding Level of Care Code 63197 Post Operative Follow-Up Diagnoses Status post total right knee replacement Z96.651
[2024-09-24 16:15] VITALS: O2SAT 97
[2024-09-24 20:18] VITALS: RESP 16; TEMP 97.9
[2024-09-25 06:46] LABS: INR 1.4 (0.9-1.1); Prothrombin Time 15.1 Seconds (9.0-12.0)
[2024-09-25 07:18] VITALS: BP 132/76; PULSE 73
--- NOTE | 2024-09-25 08:52 | Orthopedic Progress Note ---
Date of Service September 25, 2024 Assessment & Plan (1) Status post total right knee replacement: * Continue Current Treatment * Disposition: rehab/SNF * Daily treatment: Physical Therapy/ Occupational Therapy per protocol * Weight bearing status: WBAT RLE * Local wound care PRN for incision, blister * Pain control, Tramadol * Orthostatic hypotension: discussed with cardiology, will follow as outpatient * DVT prophylaxis: continue home dose Coumadin * Office/hospital f/u 2 weeks for progress check and staple/suture removal * Plan for discharge to rehab/SNF pending PT/OT clearance, placement Subjective Active Problems: S/p R TKA 79 y/o male s/p right TKA. Doing well overall, pain managed and improved function. Denies fever/chills, chest pain/SOB, nausea/vomiting. Otherwise no complaints.Awaits rehab/SNF placement. Review of Systems All systems reviewed & are unremarkable except as noted in HPI & below. Physical Exam * General: Alert and oriented, no acute distress * Constitutional: well-developed, well-nourished. * Respiratory: Normal respiratory effort, no distress * Gastrointestinal: No tenderness to palpation, no rigidity or guarding. * Skin: No rash or lesion. * Neurologic: Grossly normal * Musculoskeletal: Right knee incision CDI, not removed for exam. Dressing to thompson blister. Otherwise no obvious deformity or overlying skin changes to RLE noted. Mild diffuse TTP distal thigh and knee region. Otherwise no specific tenderness of the proximal thigh, lower leg/calf, foot/ankle. AROM knee flexion 0-110 degrees with mild pain. AROM foot/ankle intact. Sensation intact plantar/dorsal foot. Brisk capillary refill. Results & Data Results & Data Laboratory Results . Diagnostic Findings . PG Care Time/CCT Total # of Minutes Spent Total Time Spent with Patient: Total time spent is greater than 50% in coordination of care (as documented) at patient's floor/unit and/or counseling patient: Coding Level of Care Code 13487 Post Operative Follow-Up Diagnoses Status post total right knee replacement Z96.651
--- NOTE | 2024-09-26 12:49 | Discharge Summary ---
Date of Service September 26, 2024 Admission HPI (Per Admitting) . The patient is a 79-year-old gentleman with multiple medical comorbidities currently on anticoagulation who presents for surgical treatment of his knees, most specifically his right knee. A Matt a long-term patient of ours we have been treated with injections over the years which would become less successful. He has chronic venous stasis changes distally and has not really been a surgical candidate as a result. Over the past year or so he has worked hard on trying to improve his situation and he has not had any problems with leg wounds for the past 6 months. He strongly desiring to proceed with right knee replacement. He was actually scheduled previously but to have a urological emergency with pyelonephritis and had to have a stent placed. The stents now been removed. Apparently his urological systems cleared up and would like to proceed with knee replacements. 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 He has no known clotting disorder. He does not have an anticoagulation schedule as per Dr. Kc to do. Admission Exam (Per Admitting) . Physical examination reveals a pleasant fairly large middle-age male. He ambulates with use of a cane. Examination of the right knee and leg reveals some chronic venous stasis changes distally below the knee. No open wounds. No real major edema but just some discoloration. He is got valgus alignment to his knee. Small knee effusion. Range of motion 5-1 25. No instability. No particular pain with hip motion. Principal Diagnosis Same as "Discharge Diagnosis" noted below under Discharge Instructions. Discharge Exam * General: Alert and oriented, no acute distress * Constitutional: well-developed, well-nourished. * Respiratory: Normal respiratory effort, no distress * Gastrointestinal: No tenderness to palpation, no rigidity or guarding. * Skin: No rash or lesion. * Neurologic: Grossly normal * Musculoskeletal: Right knee incision CDI, not removed for exam. Dressing to thompson blister. Otherwise no obvious deformity or overlying skin changes to RLE noted. Mild diffuse TTP distal thigh and knee region. Otherwise no specific tenderness of the proximal thigh, lower leg/calf, foot/ankle. AROM knee flexion 0-110 degrees with mild pain. AROM foot/ankle intact. Sensation intact plantar/dorsal foot. Brisk capillary refill. Discharge Data Procedures Performed Operation Date: 09/19/24 12:30 Actual Procedures p Right Total Knee Arthroplasty(Right) - Keanu Lopez MD Ordered Studies 09/19/24 05:00 US - OR guided needle placemen Routine Hospital Course (1) Status post total right knee replacement: This is a 79 year old patient admitted on 09/19/24 and underwent total knee arthr oplasty. He tolerated the procedure well and there were no complications. Transferred to the PACU post op and later to the orthopedic floor for further care. He was given ancef for antibiotic prophylaxis. He was also given DESMOND stockings, SCDs, and coumadin/lovenox for DVT prophylaxis. Hemoglobin, hematocrit, and vital signs were monitored during his hospital stay and remained stable. Did not require any blood transfusions. There were no complications during his hospital stay. By post op day #6 the patient was tolerating a regular diet, pain was reasonably controlled with oral pain medicine, and he was participating in physical therapy. He was awaiting placement. On post op day #6 the patient was discharged home and set up with home health care. He was given printed discharge instructions including prescriptions for extra strength tylenol, cefadroxil, senokot, zofran, and oxycodone. Continue physical therapy, weight bearing as tolerated. Continue DESMOND stockings. Follow up approximately 2 weeks post op or sooner if there are problems or concerns. PG Care Time/CCT Total # of Minutes Spent Total Time Spent with Patient: Total time spent is greater than 50% in coordination of care (as documented) at patient's floor/unit and/or counseling patient: Discharge Plan Discharge Items Patient Disposition: Home - Home Health Services Reason For Visit: Right Knee Osteoarthritis Discharge Diagnosis: Right Knee Replacement Activity: Per Instructions section Weightbearing: Full weightbearing Non-emergency contact: Surgeon Call non-emergency contact if: you have any medication questions Follow-up/Referrals: Kory Samuel MD [Physician] - Keanu Lopez MD [Physician] - 10/05/24 11:50 am Henry Prieto DO [Primary Care Provider] - Diet: Regular Addtl Attending Provider Instructions: ACTIVITY RECOMMENDATIONS: Diet: * You may resume previous diet. Physical Therapy: * You will go to physical therapy three times each week for four to six weeks after your surgery in order to regain your knee range of motion and to retrain your knee to work properly. * It is just as important to make sure you are getting your knee perfectly straight as it is to regain your knee bend. * Taking a pain pill an hour before therapy can help you have a more productive and comfortable therapy session. Home Exercise: * You were shown a series of exercises (heel props, heel slides, etc.) in the hospital. Do these exercises three to four times each day including the exercises you were shown in physical therapy. Walking: * Get up and walk several times each day. For the first four weeks, try not to stand or walk for more than one hour at a time. If you do stand or walk for more than one hour, you will not hurt anything, but your knee and leg will likely swell. * As you feel comfortable, you may change from the walker or crutches to a cane and then to independent walking. MEDICATIONS: New Medicine: * You will likely be taking one or more of these medications: 1. Oxycodone - A quick and shorter-acting pain medication. Take one to two tablets every six hours to lessen your pain. 2. Coumadin - Thins your blood to lessen the chance of forming a blood clot. * The most common side effects of pain medicine and iron are nausea and constipation. If nausea or constipation is too much of a problem or if you have any questions about your new medicines or doses, call [facility] at . We will try to help you manage these issues. "VERY IMPORTANT TO READ AND REVIEW" Pain: * The immediate post-operative period after knee replacement surgery is often quite painful. * You are given a prescription for pain medicine. You should take it, as directed, when you need it, especially before physical therapy and before going to bed. Pain that interferes with sleep is very common and can last several months. * You will likely need pain medicine for the first four to six weeks. It will not stop all of the pain. The pain will lessen and as you feel better, you may change to milder pain medicine such as Tylenol. * The most common side effects of pain medicine are nausea and constipation, so don't take more than you need. SPECIAL CARE INSTRUCTIONS: TEDs/Elastic Stockings: * The white elastic stockings help limit swelling and prevent blood clots from forming in your legs. The more you wear them, the more they work. * Wear them for six weeks after knee replacement surgery and four weeks after partial knee replacement. Incision Site Care: * Remove dressing postoperative day 2 and then shower. Keep direct shower pressure off the incision site. * After showering, cover joelle with dry gauze and change daily or more frequently if the dressing is getting saturated with drainage. * Use the DESMOND stockings to hold dressing in place. DO NOT apply tape on the skin. * May completely stop using bandage if wound is dry and no drainage * Joelle are removed between 2 and 3 weeks post-op. If your follow-up appointment is made before 2 weeks, please have your appointment re- scheduled. It is too early to remove the joelle. Prevention of Infection: * Take antibiotics one hour before any dental cleaning, dental work, urological procedure, gastrointestinal procedure or any invasive surgery in order to prevent your new joint from getting infected. * You may get the antibiotics from the doctor performing the procedure or you may call our office at [phone] before and we will call in a prescription to the pharmacy of your choice. Things to Watch For: * Drainage from the incision site that occurs more than one week after your surgery. * Severely increased knee/leg pain or swelling. * Increased redness at the incision site. * Fever above 102 degrees Fahrenheit. * Unusual chest pain or shortness of breath. * Unusual pain or burning with urination. Call [facility] at [phone] with any of the above problems or if you have any questions about your medicines or recovery. FOLLOW UP VISIT: Make an appointment to see your doctor for approximately two weeks after surgery for a progress check and staple removal by calling the office at [phone]. Pending Studies at Discharge: No Stand-Alone Forms: My [facility], Smoking Cessation Medications and DC Order Prescriptions: Continued warfarin 5 mg tablet See Rx Instructions .ROUTE .COMPLEX Rx Instructions: Take 7.5mg on Wednesdays and 5mg x 6 days -- Per [facility] [id number] Cosentyx Pen (2 Pens) 150 mg/mL pen injector 300 mg subcut .COMPLEX Qty: 6 3RF Rx Instructions: 300 mg every 4 weeks (on Svetlana's) for maintenance as directed gabapentin 300 mg capsule 300 mg PO TID Qty: 90 5RF aripiprazole [Abilify] 5 mg tablet 5 mg PO QAM Qty: 90 1RF Rx Instructions: for depression alfuzosin 10 mg tablet extended release 24 hr 10 mg PO QPM Qty: 90 3RF Rx Instructions: administer after the same meal each day oxycodone 5 mg tablet 5 - 10 mg PO Q6 PRN (Reason: pain) Qty: 40 0RF Rx Instructions: Take as needed for pain ondansetron 4 mg tablet,disintegrating 4 mg PO Q8 PRN (Reason: nausea) Qty: 20 1RF Rx Instructions: Take as needed for nausea sennosides [Senokot] 8.6 mg tablet 8.6 mg PO BID 14 Days Qty: 28 0RF Rx Instructions: Take two times a day to prevent/treat constipation acetaminophen [Tylenol Extra Strength] 500 mg tablet 1,000 mg PO TID 30 Days Qty: 180 0RF Rx Instructions: Take 3 times per day to lessen pain. (DME) Shower Chair Misc See Rx Instructions .Route Qty: 1 0RF Rx Instructions: As directed (DME) Ultra-Light Rollator Misc See Rx Instructions .Route Qty: 1 0RF Rx Instructions: As directed for 99months cholecalciferol (vitamin D3) 50 mcg (2,000 unit) capsule 50 mcg PO QAM cyanocobalamin (vitamin B-12) 1,000 mcg tablet 1,000 mcg PO QAM multivitamin with minerals Capsule 1 cap PO QAM pantoprazole 40 mg tablet,delayed release (DR/EC) 40 mg PO QAM duloxetine 60 mg capsule,delayed release(DR/EC) 60 mg PO QPM Patient Comments: noon Discontinued enoxaparin 40 mg/0.4 mL syringe 40 mg subcut Q12H Qty: 10 0RF Rx Instructions: Take every 12 hours as directed by [facility] Discharge Orders: Discharge Order (Routine); Ordered 09/25/24 Ordered By: Keanu Ball/Other Patient Handouts: Warfarin Oral Tablet Admission Data Admit Date/Time: 09/19/24 15:26 Attending Provider: Keanu Lopez Admit Provider: Keanu Lopez Primary Care Provider: Henry Prieto Other Providers: [facility], [facility] Other Interventions: Discharge Summary Assessment (RN) Last Done: 09/25/24 11:40
== END 2024-09-25 13:26 | disposition home health service (06) | DRG 470 ==
LOC: ASU 10:23 → INTOOBSV 15:26 → 3E 15:26

== ENCOUNTER 2024-09-27 09:57 | Inpatient (IN) ==
--- NOTE | 2024-09-27 10:28 | Emergency Department Note ---
ED Provider Note History of Present Illness Chief Complaint: Knee Injury/Pain Time Seen by Provider: 09/27/24 10:02 79-year-old male who presents to the emergency department for evaluation of right knee pain and a wound on his right leg. The patient reports that he underwent a knee replacement [address] Lopez. The patient reports that he has had problems with his knee since that time. He now reports a stabbing pain over the outer aspect of the knee. They also noticed an open wound on the front of his leg, noting that he does have a prior history of leg wounds. He reports that the wound was healed before his surgery. Patient denies any fever or chills. He has been taking Oxy IR for the pain with decent pain control. The patient reports that his insurance would not provide coverage for physical therapy. He does have home health coming to his home. They did evaluate his leg this morning, and recommended that he come to the emergency department for further evaluation. The patient rates his discomfort a 5 out of 10. Home Medications Medication Instructions Recorded Confirmed Type Shower Chair #1 ea 10/04/22 09/18/24 Rx cholecalciferol (vitamin D3) 50 50 mcg PO QAM 09/09/23 09/27/24 History mcg (2,000 unit) capsule cyanocobalamin (vitamin B-12) 1,000 mcg PO QAM 09/09/23 09/27/24 History 1,000 mcg tablet multivitamin with minerals 1 cap PO QAM 09/10/23 09/27/24 History gabapentin 300 mg capsule 300 mg PO TID #90 caps 05/30/24 09/27/24 Rx pantoprazole 40 mg tablet,delayed 40 mg PO QAM 06/28/24 09/27/24 History release walker (Ultra-Light Rollator misc) #1 ea 08/15/24 09/18/24 Rx aripiprazole 5 mg tablet (Abilify) 5 mg PO QAM #90 tabs 08/28/24 09/27/24 Rx alfuzosin 10 mg tablet,extended 10 mg PO QPM #90 tabs 09/05/24 09/27/24 Rx release 24 hr warfarin 5 mg tablet 5 - 7.5 mg PO UD 09/11/24 09/27/24 History acetaminophen 500 mg tablet 1,000 mg (2 x 500 mg) PO TID pain 09/16/24 09/27/24 Rx (Tylenol Extra Strength) 30 days #180 tabs ondansetron 4 mg disintegrating 4 mg PO Q8 PRN nausea #20 tabs 09/16/24 09/27/24 Rx tablet oxycodone 5 mg tablet 5 - 10 mg (1 - 2 x 5 mg) PO Q6 PRN 09/16/24 09/27/24 Rx pain #40 tabs sennosides 8.6 mg tablet (Senokot) 8.6 mg PO BID prevent constipation 09/16/24 09/27/24 Rx 14 days #28 tabs duloxetine 60 mg capsule,delayed 60 mg PO QPM #90 caps 09/27/24 09/27/24 Rx release secukinumab 150 mg/mL subcutaneous 300 mg subcut UD 09/27/24 09/27/24 History pen injector (Cosentyx Pen 300 mg/2 pens () Allergies Allergy/AdvReac Type Severity Reaction Status Date / Time amoxicillin Allergy Intermediate rash Verified 09/19/24 10:34 Penicillins Allergy Intermediate rash Verified 09/19/24 10:34 Past Med/Surg History Problem List (Updated 09/27/24 @ 15:42 by Marc Friedman) Venous stasis of lower extremity (Acute) Status post total knee replacement, right (Acute) Cellulitis of right leg (Acute) History of arthroplasty of right knee Ambulatory dysfunction Cellulitis of right lower leg Status post total right knee replacement (Acute) Hydronephrosis Right rotator cuff tear Bilateral primary osteoarthritis of knee Abnormal ankle brachial index (Acute) Constipation Lumbar radiculopathy, right Erectile dysfunction Increased urinary frequency Arthritis Chronic diarrhea Fatty infiltration of liver Morbid obesity (Chronic) BMI 42 Medical History Orthostatic hypotension noted by PCP 07/16/24 visit; lisinopril D/C; monitoring Morbid obesity History of blood transfusion 30 yrs ago Prediabetes diet controlled per pt Low iron hx>iron infusions in past Short-term memory loss "mild" Psoriatic arthritis Lumbar radiculopathy Physical debility uses cane/walker to ambulate Sacroiliitis Chronic venous insufficiency 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, stable per pt MCFP current use of 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 Degenerative arthritis of knee, bilateral Depression Sleep apnea does not use device BPH loc w urin obs/LUTS Hx of deep venous thrombosis 2015; on coumadin currently GERD (gastroesophageal reflux disease) controlled, stable per pt Hx pulmonary embolism (~2015) reason for coumadin Lumbago Hx of pancreatitis Generalized osteoarthritis Hiatal hernia Scoliosis History of kidney stones History of colitis last episode more than 10 years ago Macular degeneration Lumbar spondylosis Metabolic syndrome SNHL (sensorineural hearing loss) Asthma denies any inhaler use Benign esophageal stricture hx-resolved Surgical History History of cystoscopy cysto, urethral dilation, R stent placement 07/01/24: [place]: LMA iGel 5 07/30/24: cysto, ureteral dilation, bilat. RP, laser endopyelogram, stent exchange History of anesthesia reaction August 2023>attemped robotic lap abdomen procedure aborted d/t BP dropping H/O abdominal surgery August 2023>lap abdominal procedure attempted in [facility] to correct pouch formation "BP dropped/procedure aborted" History of lithotripsy History of appendectomy History of esophagogastroduodenoscopy (EGD) (~06/2021) History of colonoscopy History of tooth extraction all teeth removed History of bilateral cataract extraction History of cardiac cath 1994? @ [facility]--no stents; no cardio. S/P tonsillectomy S/P hernia repair incisional hernia S/P gastroplasty 36 years ago>currently being seen to have this procedure corrected in a few months. S/P cholecystectomy Family History Family/Other Hearing loss Paternal cousins Mother Heart disease Hypertension Family history of reaction to anesthesia difficulty waking after surgery Other Myocardial infarction No family history of bleeding disorder Prostate cancer Denies family history of Ovarian cancer Breast cancer Colorectal cancer Social History Smoking Status: Never smoker Tobacco Type: Cigarettes Age Started Using Tobacco: 16; Age Quit Using Tobacco: 30; packs per day: 1; Cigarettes Per Day: QUIT ~45 + YRS AGO; Second Hand Exposure: No; Do You Dip or Chew Tobacco: No; Hx Alcohol Use: No Hx Substance Use: No Preferred Language: Albanian Communication Ability: Effective Visual Impairment: Limited Hearing Ability: Use of Hearing Aid Payroll Accounting Specialist Required: No Beliefs That Will Affect Care: None marital status: Current Living Situation: Other Current Living Situation Comment: with roommates current occupational status: retired How many Children do You have: 1 Feels Safe at Home: Yes Childhood Exposure to Second-Hand Smoke: Yes Diet: regular caffeine: No Dental Care, Regularly: No Physical Activity Frequency: Does not Exercise Seatbelt Use: always Sunscreen Use: Yes Assistive Devices: Denture - Upper, Denture - Lower, Glasses and Walker Physical Exam Vital Signs Vital Signs - 24 hr 09/27/24 10:05 09/27/24 10:36 09/27/24 10:41 Temperature 36.9 C Temperature Source Oral Pulse Rate 73 69 Pulse Rate [Apical] 86 Respiratory Rate 20 20 Respiratory Effort / Characteristics Non-Labored Non-Labored Respiratory Depth Normal Normal Blood Pressure 141/84 H Blood Pressure [Right Arm] 141/84 H Blood Pressure Mean 103 Blood Pressure Mean [Right Arm] 103 Pulse Oximetry 96 98 Oxygen Delivery Method Room Air Room Air Sepsis Recent Fever Within 48 Hours No Sepsis New/Unexplained Change in Mental Status No Sepsis Action Taken by Nursing No Action Required CONSTITUTIONAL: Morbidly obese male, alert and oriented X 3. GCS 15. Patient appears in mild discomfort. HEENT: No scleral icterus or conjunctival injection. Mucous membranes are moist. RESPIRATORY: Clear to auscultation bilaterally with no wheezing, crackles, rhonchi or stridor. CARDIOVASCULAR: Regular rate and rhythm with no murmurs, rubs or gallops. GASTROINTESTINAL: Bowel sounds present in all quadrants. Abdomen is protuberant and soft and nontender to palpation. MUSCULOSKELETAL: Examination shows diffuse edema and ecchymosis about the right knee. He does have erythema along the lateral margin of the wound. [place] are intact without obvious purulent or serosanguineous drainage. The knee is warm to palpation. Further examination shows a small pea-sized wound over the anterior middle tibia region, with notable anterior leg erythema. 2+ edema is noted. Pedal pulses are intact. INTEGUMENTARY: No rash or other significant dermatologic conditions noted. HEMATOLOGIC: No ecchymosis or petechiae. PSYCHIATRIC: Positive affect. NEUROLOGIC: Right foot toes are sensory intact. Course Course Patient history and physical exam were performed. Nursing notes were reviewed. IV access was established, labs were ordered and drawn, including blood cultures x 2. The patient declined any analgesics on initial exam. I did initially discuss the case with our ED pharmacist, who recommended discussing the case with orthopedics in case joint aspiration would be needed, prior to antibiotic administration. I then reached out to Dr. Lopez, who indicated that the patient okay does not have a septic joint. He also reports that the patient's leg was also significantly erythematous prior to surgery, and is his chronic venous stasis appearance. He indicated that he would reevaluate the patient, however did request admission by the hospitalist service for leg cellulitis. He did recommend administering IV Ancef 2 g every [address] Lopez and our ed case manager indicated that the patient's insurance denied transfer to [facility] for postsurgical rehab. [facility] also did not have an available bed within 24 hours, therefore the patient was to start in-home physical therapy today. Hopefully during his admission he can be arranged for further outpatient management as Feel that the patient will likely fail outpatient management at this point. The patient was in agreement with admission and IV antibiotics. The case was then discussed with the [facility] hospitalist service. Please see hospitalist and orthopedic dictations for further treatment and final disposition. Final lab results were reviewed, showing no significant leukocytosis. Sed rate is elevated at 81, and CRP is 9.15. INR is 1.7. Electrolytes were otherwise normal. Lactate and procalcitonin were normal. Blood cultures are pending. The case was also discussed with Dr. Verde, ED attending physician, who agrees with workup and outpatient plan of care. Administered Medications Daptomycin 700 mg/ Syringe 14 mls @ 7 mls/min IV Q24H LEV; Protocol Stop: 10/04/24 14:59 Last Admin: 09/27/24 16:52 Dose: 7 mls/min Documented By: RANDALL Cefazolin Sodium (Ancef 2000mg) 2,000 mg in 15 mls @ 3.75 mls/min IV Q8H LEV Stop: 10/04/24 18:59 Last Admin: 09/27/24 18:12 Dose: 3.75 mls/min Documented By: RANDALL Oxycodone HCl (Oxycodone Hcl Ir 5 Mg Tab (Immediate Release)) 5 mg PO Q6H PRN PRN Reason: Moderate Pain (4,5,6) on NRS Stop: 10/11/24 16:35 Last Admin: 09/27/24 16:51 Dose: 5 mg Documented By: RANDALL Warfarin Sodium (Warfarin Sod 5 Mg Tab) 5 mg PO [id number]@1600 LEV Stop: 10/27/24 16:35 Last Admin: 09/27/24 17:18 Dose: 5 mg Documented By: RANDALL Discontinued Medications Acetaminophen (Acetaminophen Susp 160 Mg/5 Ml Btl) 1,000 mg PO NOW STA Stop: 09/27/24 12:32 Last Admin: 09/27/24 12:53 Dose: Not Given Documented By: QGV Acetaminophen (Acetaminophen 500 Mg Tab) 1,000 mg PO NOW STA Stop: 09/27/24 12:44 Last Admin: 09/27/24 12:52 Dose: 1,000 mg Documented By: QGV Gabapentin (Gabapentin 300 Mg Cap) 300 mg PO NOW STA Stop: 09/27/24 12:32 Last Admin: 09/27/24 12:52 Dose: 300 mg Documented By: QGV Cefazolin Sodium (Ancef 2000mg) 2,000 mg in 15 mls @ 3.75 mls/min IV NOW STA Stop: 09/27/24 10:41 Last Admin: 09/27/24 10:54 Dose: 3.75 mls/min Documented By: ANGEL Medical Decision Making Medical Records Attestation: I reviewed the patient's medical records. Home Medications was personally reviewed by me Laboratory Data Attestation: I reviewed the patient's lab results. 09/27/24 10:30 09/27/24 10:30 Lab Results 09/27/24 Range/Units 10:30 WBC 8.38 (4.8-10.8) K/ul RBC 4.12 L (4.70-6.10) M/uL Hgb 10.8 L (14.0-18.0) g/dl Hct 35.0 L (42.0-52.0) % MCV 85.0 (80.0-100.0) fL MCH 26.2 (25.0-34.0) pg MCHC 30.9 L (32.0-36.0) g/dL RDW Std Deviation 48.0 H (36.4-46.3) fL RDW Coeff of Monique 15.5 H (11.5-14.5) % Plt Count 247 (130-400) K/uL MPV 9.4 (9.4-12.4) fL Immature Gran % (Auto) 1.1 % Neut % (Auto) 67.3 % Lymph % (Auto) 14.6 % [place] % (Auto) 13.5 % Eos % (Auto) 3.1 % Baso % (Auto) 0.4 % Neut # (Auto) 5.65 (1.40-6.50) K/uL Lymph # (Auto) 1.22 (1.20-3.40) K/uL [place] # (Auto) 1.13 H (0.11-0.59) K/uL Eos # (Auto) 0.26 (0.00-0.50) K/uL Baso # (Auto) 0.03 (0.00-0.20) K/uL Immature Gran # (Auto) 0.09 (0.01-0.20) K/uL ESR 81 H (0-20) mm/hr PT 17.9 H (9.0-12.0) Seconds INR 1.7 H (0.9-1.1) Sodium 139 (136-145) mmol/L Potassium 4.1 (3.5-5.1) mmol/L Chloride 103 (98-107) mmol/L Carbon Dioxide 31 (21-32) mmol/L Anion Gap 5 (3-11) BUN 20 (6-23) mg/dl Creatinine 1.03 (0.6-1.4) mg/dl Est Cr Clr Drug Dosing 89.7 ml/min eGFR 74.35 BUN/Creatinine Ratio 19.4 (10-20) Glucose 118 H (70-99(Fasting)) mg/dl Lactate 0.9 (0.4-2.0) mmol/L Calcium 9.0 (8.6-10.3) mg/dl Total Bilirubin 0.9 (0.2-1.0) mg/dl AST 18 (13-39) U/L ALT 10 (7-52) U/L Alkaline Phosphatase 79 (34-104) U/L C-Reactive Protein 9.15 H (0-0.5) mg/dl Total Protein 6.9 (6.0-8.3) gm/dl Albumin 3.6 (3.4-5.0) gm/dl Globulin 3.3 (2.5-4.0) gm/dl Albumin/Globulin Ratio 1.1 (0.9-2) Procalcitonin 0.03 (0-0.5) ng/ml Imaging Data Attestation: I personally reviewed and interpreted this imaging study as follows: My Impression: My interpretation of the right knee x-rays does not show evidence for significant joint effusion, osteomyelitis or other concerning findings. Radiologist report was also reviewed with concurrence. Radiologist's Impression: Knee X-Ray 09/27/24 10:19 XR knee RT 1 or 2V routine CLINICAL HISTORY: R knee pain/infx, 8d s/p TKA COMPARISON: 09/19/2024 FINDINGS: Right knee prosthesis shows no hardware complication. Skin joelle remain anteriorly. No fracture or dislocation. No evidence of osteomyelitis. IMPRESSION: No acute findings seen. ACT 112: Negative or not required by law. Electronically signed by: Usman Ward M.D. 09/27/2024 11:06 AM Venous Doppler Study 09/27/24 10:19 RIGHT LOWER EXTREMITY VENOUS DOPPLER CLINICAL HISTORY: RLE pain, post-op TKA COMPARISON STUDY: Right lower extremity venous Doppler ultrasound September 14, 2023. TECHNIQUE: Sonography of the deep venous system of the right lower extremity was performed. Compression and augmentation were evaluated. FINDINGS: The right common femoral, superficial femoral and popliteal veins were compressible. Augmentation was normal. Flow was shown within the deep calf vessels. Lower extremity subcutaneous edema is noted. IMPRESSION: No evidence of deep venous thrombus within the right lower extremity. ACT 112: Negative or not required by law. Electronically signed by: Félix Delatorre M.D. 09/27/2024 11:45 AM MDM Narrative See ED Course section for further details of today's visit. The patient underwent a right total knee arthroplasty 8 days ago. The patient has noticed a skin breakdown on his leg. He does have a prior history of venous stasis wounds, which were healed prior to his joint replacement. The patient does have notable erythema of the leg, concerning for cellulitis as it appears to be centered around the leg wound. However, the patient also has skin changes consistent with venous stasis disease. There is also some mild erythema extending along the surgical incision. I am concerned about possibility of cellulitis. The case was discussed with orthopedics, who does not feel that the patient is at risk for septic joint at this time. The patient will be treated with IV Ancef antibiotics. Lab work was also encouraging. Procalcitonin and lactate are normal. Blood cultures are ordered and are pending. The patient will be admitted by the hospitalist service for IV antibiotics, with orthopedic consultation as well. The case was also discussed with Dr. Verde, ED attending physician, who agrees with workup and outpatient plan of care. Impression Cellulitis of right leg, Status post total right knee replacement, Status post total knee replacement, right, Venous stasis of lower extremity Discharge Plan Visit Data Chief Complaint: Knee Injury/Pain ED Provider: Quinn Verde ED Midlevel Provider: Marc Friedman Discharge Problem: Cellulitis of right leg, Status post total right knee replacement, Status post total knee replacement, right, Venous stasis of lower extremity Patient Disposition: Admitted As Inpatient Condition: Fair Discharge Instructions Interventions: ED Discharge Assessment Last Done: 09/27/24 14:02 ED DC CONDITION Conditon at Discharge Condition at Discharge: Fair Addendum September 27, 2024 21:20 I was consulted by the Advanced Practice Provider and was substantively involved in the patient's visit.This includes aspects of the HPI, MDM, diagnostic interpretations, and disposition/plan. I discussed the case with the DIONICIO and agree with the findings and plan as documented in DIONICIO Elder's note.
[2024-09-27 10:51] LABS: Basophils # (auto) 0.03 K/uL (0.00-0.20); Basophils % (auto) 0.4 %; Eosinophils # (auto) 0.26 K/uL (0.00-0.50); Eosinophils % (auto) 3.1 %; Hemoglobin 10.8 g/dl (14.0-18.0); Immature Granulocytes # (auto) 0.09 K/uL (0.01-0.20); Immature Granulocytes % (auto) 1.1 %; Lymphocytes # (auto) 1.22 K/uL (1.20-3.40); Lymphocytes % (auto) 14.6 %; Mean Corpuscular Hemoglobin 26.2 pg (25.0-34.0); Mean Corpuscular Hgb Conc 30.9 g/dL (32.0-36.0); Mean Platelet Volume 9.4 fL (9.4-12.4); Monocytes # (auto) 1.13 K/uL (0.11-0.59); Monocytes % (auto) 13.5 %; Neutrophils # (auto) 5.65 K/uL (1.40-6.50); Neutrophils % (auto) 67.3 %; Platelet Count 247 K/uL (130-400); RDW Coefficient of Variation 15.5 % (11.5-14.5); Red Blood Count 4.12 M/uL (4.70-6.10); White Blood Count 8.38 K/ul (4.8-10.8)
--- NOTE | 2024-09-27 10:58 | History & Physical Report ---
Date of Service September 27, 2024 Assessment & Plan (1) Ambulatory dysfunction: (2) History of arthroplasty of right knee: (3) Cellulitis of right lower leg: (4) Morbid obesity with BMI of 40.0-44.9, adult: Plan This is a 79-year-old male who presented on 09/27 for ambulatory dysfunction. Recent R TKA on 09/[address] Lopze. Originally discharged home on home health on 09/25, but patient developed worsening of pain and ambulatory dysfunction. Coming back in for SNF rehab placement. #Recent history of right TKA | ambulatory dysfunction Orthopedics consult appreciated PT/OT evaluations appreciated Fall precautions Case management consult appreciated for SNF rehab placement Pain regimen as follows: Acetaminophen 1000 mg TID Gabapentin 300 mg TID Oxycodone 5-10 mg p.o. tablets PRN for breakthrough pain Continue bowel regimen #Right lower extremity cellulitis No leukocytosis; afebrile; VSS on admission Elevated CRP and ESR Procalcitonin WNL Findings more concerning for a RLE cellulitis, rather than acute knee infection Patient denies prior history of MRSA infection; no purulent drainage However, given recent hospitalization and rapid progression of erythema and swelling moving towards the knee, will cover for potential MRSA infection Daptomycin 1050 mg IV q24h Could transition to Zyvox upon discharge (which would require holding duloxetine) Continue Ancef 2000 mg IV q8h Continue to monitor inflammatory markers #History of DVT/pulmonary embolism No evidence of DVT on RLE Doppler on arrival Continue current warfarin regimen INR 1.7 on arrival Initiate Lovenox SQ daily while INR < 2 *discontinue Lovenox once INR is within therapeutic range Trend PT/INR #Depression/anxiety Continue duloxetine, aripiprazole #GERD Continue PPI Disposition: Admit to VTO VTE PPx: Warfarin; Lovenox 40 mg SQ q12h while INR <2.0 History of Present Illness Chief Complaint: Right knee pain, ambulatory dysfunction Primary Care Provider: DO Jimbo Rodriguez is a 79-year-old male with PMH of arthritis, chronic diarrhea, and lumbar radiculopathy. Recent right total knee arthroplasty with Dr. Lopez on 09/19, and subsequently hospitalized from 09/19 - 09/25 for ambulatory dysfunction. Initially, the plan was for patient to go to rehab upon discharge, but due to lack of beds at rehab, his SNF authorization lapsed. He then began to improve on his own, and was discharged to home with home health. Patient returned on 09/27 due to ambulatory dysfunction and increased pain/weakness in the right knee at home. He feels unsafe to return home at this time, due to his inability to get around. He also reports that he had a fall from seated position this morning; he was on the toilet and the toilet riser pushed him to the right. He fell and struck his right knee on the side of his tub. No LOC. No head strike. He rates the pain in his right knee as an 8/10 at present. Pain does radiate down his right thompson, and he will occasionally have sharp stabbing pain inside of his knee. He denies any numbness or tingling. He has been taking oxycodone twice daily at home, which he reports helps. Last oxycodone was taken this morning at 7:30 AM. Patient took all of his regular morning medicine today, as well as his antibiotic which was prescribed on discharge. Last took warfarin 5 mg last night on 09/26. He manages his own medicine at home. Home health physical therapy came to evaluate him today, and agreed that he should return to the hospital. Patient's lower right extremity is also erythematous, swollen, and hot to touch. He does have a history of cellulitis. He denies any purulent drainage or bleeding from the surgical site. No PMH of MRSA infections. He ambulates with a rollator/walker at baseline. He denies any smoking, tobacco use, or recent alcohol use. In regard to his penicillin allergy, he is not quite sure what happens when he takes penicillins, but believes he might of developed a rash at one point. Patient is hypertensive at 141/84 at time of admission; vitals otherwise stable. ED course: Cefazolin 2000 mg IV ROS: Patient endorses right knee pain/swelling, lower back pain (from laying around the past week; chronic), R jew headache (ongoing), and nausea. Patient denies fever, chills, night-sweats, dizziness, lightheadedness, chest pain, SOB, chest palpitations, pleuritic CP, cough, abdominal pain, vomiting, diarrhea, burning with urination, blood in the urine/stool, or numbness/tingling in the right leg. Allergies Allergy/AdvReac Type Severity Reaction Status Date / Time amoxicillin Allergy Intermediate rash Verified 09/19/24 10:34 Penicillins Allergy Intermediate rash Verified 09/19/24 10:34 Home Medications Medication Instructions Recorded Confirmed Type Shower Chair #1 ea 10/04/22 09/18/24 Rx cholecalciferol (vitamin D3) 50 50 mcg PO QAM 09/09/23 09/27/24 History mcg (2,000 unit) capsule cyanocobalamin (vitamin B-12) 1,000 mcg PO QAM 09/09/23 09/27/24 History 1,000 mcg tablet multivitamin with minerals 1 cap PO QAM 09/10/23 09/27/24 History gabapentin 300 mg capsule 300 mg PO TID #90 caps 05/30/24 09/27/24 Rx pantoprazole 40 mg tablet,delayed 40 mg PO QAM 06/28/24 09/27/24 History release walker (Ultra-Light Rollator misc) #1 ea 08/15/24 09/18/24 Rx aripiprazole 5 mg tablet (Abilify) 5 mg PO QAM #90 tabs 08/28/24 09/27/24 Rx alfuzosin 10 mg tablet,extended 10 mg PO QPM #90 tabs 09/05/24 09/27/24 Rx release 24 hr warfarin 5 mg tablet 5 - 7.5 mg PO UD 09/11/24 09/27/24 History acetaminophen 500 mg tablet 1,000 mg (2 x 500 mg) PO TID pain 09/16/24 09/27/24 Rx (Tylenol Extra Strength) 30 days #180 tabs ondansetron 4 mg disintegrating 4 mg PO Q8 PRN nausea #20 tabs 09/16/24 09/27/24 Rx tablet oxycodone 5 mg tablet 5 - 10 mg (1 - 2 x 5 mg) PO Q6 PRN 09/16/24 09/27/24 Rx pain #40 tabs sennosides 8.6 mg tablet (Senokot) 8.6 mg PO BID prevent constipation 09/16/24 09/27/24 Rx 14 days #28 tabs duloxetine 60 mg capsule,delayed 60 mg PO QPM #90 caps 09/27/24 09/27/24 Rx release secukinumab 150 mg/mL subcutaneous 300 mg subcut UD 09/27/24 09/27/24 History pen injector (Cosentyx Pen 300 mg/2 pens () Past Med/Surg History Problem List (Updated 09/28/24 @ 19:21 by Aries Greenfield MD) Morbid obesity with BMI of 40.0-44.9, adult Venous stasis of lower extremity (Acute) Status post total knee replacement, right (Acute) Cellulitis of right leg (Acute) History of arthroplasty of right knee Ambulatory dysfunction Cellulitis of right lower leg Status post total right knee replacement (Acute) Hydronephrosis Right rotator cuff tear Bilateral primary osteoarthritis of knee Abnormal ankle brachial index (Acute) Constipation Lumbar radiculopathy, right Erectile dysfunction Increased urinary frequency Arthritis Chronic diarrhea Fatty infiltration of liver Morbid obesity (Chronic) BMI 42 Medical History Orthostatic hypotension noted by PCP 07/16/24 visit; lisinopril D/C; monitoring Morbid obesity History of blood transfusion 30 yrs ago Prediabetes diet controlled per pt Low iron hx>iron infusions in past Short-term memory loss "mild" Psoriatic arthritis Lumbar radiculopathy Physical debility uses cane/walker to ambulate Sacroiliitis Chronic venous insufficiency 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, 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 Degenerative arthritis of knee, bilateral Depression Sleep apnea does not use device BPH loc w urin obs/LUTS Hx of deep venous thrombosis 2016; on coumadin currently GERD (gastroesophageal reflux disease) controlled, stable per pt Hx pulmonary embolism (~2015) reason for coumadin Lumbago Hx of pancreatitis Generalized osteoarthritis Hiatal hernia Scoliosis History of kidney stones History of colitis last episode more than 10 years ago Macular degeneration Lumbar spondylosis Metabolic syndrome SNHL (sensorineural hearing loss) Asthma denies any inhaler use Benign esophageal stricture hx-resolved Surgical History History of cystoscopy cysto, urethral dilation, R stent placement 07/01/24: [place]: LMA iGel 5 07/30/24: cysto, ureteral dilation, bilat. RP, laser endopyelogram, stent exchange History of anesthesia reaction August 2023>attemped robotic lap abdomen procedure aborted d/t BP dropping H/O abdominal surgery August 2023>lap abdominal procedure attempted in [facility] to correct pouch formation "BP dropped/procedure aborted" History of lithotripsy History of appendectomy History of esophagogastroduodenoscopy (EGD) (~06/2021) History of colonoscopy History of tooth extraction all teeth removed History of bilateral cataract extraction History of cardiac cath 1994? @ [facility] [place]--no stents; no cardio. S/P tonsillectomy S/P hernia repair incisional hernia S/P gastroplasty 36 years ago>currently being seen to have this procedure corrected in a few months. S/P cholecystectomy Family History Family/Other Hearing loss Paternal cousins Mother Heart disease Hypertension Family history of reaction to anesthesia difficulty waking after surgery Other Myocardial infarction No family history of bleeding disorder Prostate cancer Denies family history of Ovarian cancer Breast cancer Colorectal cancer Social History Smoking Status: Never smoker Tobacco Type: Cigarettes Age Started Using Tobacco: 16; Age Quit Using Tobacco: 30; packs per day: 1; Cigarettes Per Day: QUIT ~45 + YRS AGO; Second Hand Exposure: No; Do You Dip or Chew Tobacco: No; Hx Alcohol Use: No Hx Substance Use: No Preferred Language: German Communication Ability: Effective Visual Impairment: Limited Hearing Ability: Use of Hearing Aid Repairer Hairspring Required: No Beliefs That Will Affect Care: None marital status: Current Living Situation: Other Current Living Situation Comment: with roommates current occupational status: retired How many Children do You have: 1 Feels Safe at Home: Yes Childhood Exposure to Second-Hand Smoke: Yes Diet: regular caffeine: No Dental Care, Regularly: No Physical Activity Frequency: Does not Exercise Seatbelt Use: always Sunscreen Use: Yes Assistive Devices: Cane and Walker Review of Systems 2 Review of Systems: See HPI above Physical Exam 2 Physical Exam: General: no acute distress; daughter at bedside; non-toxic appearing; well- nourished; cooperative; SpO2 98% on RA HEENT: normocephalic, atraumatic; no scleral icterus; PERRLA; vision and hearing intact Neck: supple; no lymphadenopathy; trachea midline Skin: warm, dry without signs of tenting CV: chest wall NTP; RRR; S1/S2 normal; no murmurs/rubs/gallops; pulses intact and symmetric at radial, DP, and PT Lungs: no acute respiratory distress; symmetrical chest wall expansion; clear breath sounds across all lung corley w/o adventitious sounds; no wheezing ABD: Soft, NTP; BS present; no rebound/guarding; mild distention secondary to body habitus MSK: no tics or fasciculations; patient demonstrates ability to wiggle toes/plantarflex/dorsiflex bilaterally without unilateral deficits RLE: RLE is edematous, erythematous, and warm to touch; erythema extending circumferentially from just below the right knee to the ankle (see photo below); purple bruising on the right medial thigh; surgical site without signs of purulent drainage or infection; neurovascular intact (pulses assessed at DP/PT) Neuro: A&Ox3; normal mood and affect; fluent speech; no focal deficits; sensation grossly intact in the LEs b/l Results & Data Results & Data Vital Signs (Past 12 Hours) Vital Signs Temp Pulse Pulse Resp BP BP Pulse Ox 09/27/24 10:41 86 20 141/84 H 98 09/27/24 10:36 69 09/27/24 10:05 36.9 C 73 20 141/84 H 96 O2 Del Method 09/27/24 10:41 Room Air 09/27/24 10:36 09/27/24 10:05 Room Air Laboratory Results Abnormal lab results 09/27/24 Range/Units 10:30 RBC 4.12 L (4.70-6.10) M/uL Hgb 10.8 L (14.0-18.0) g/dl Hct 35.0 L (42.0-52.0) % MCHC 30.9 L (32.0-36.0) g/dL RDW Std Deviation 48.0 H (36.4-46.3) fL RDW Coeff of Monique 15.5 H (11.5-14.5) % [place] # (Auto) 1.13 H (0.11-0.59) K/uL ESR 81 H (0-20) mm/hr PT 17.9 H (9.0-12.0) Seconds INR 1.7 H (0.9-1.1) Glucose 118 H (70-99(Fasting)) mg/dl C-Reactive Protein 9.15 H (0-0.5) mg/dl Diagnostic Findings Knee X-Ray 09/27/24 10:19 XR knee RT 1 or 2V routine CLINICAL HISTORY: R knee pain/infx, 8d s/p TKA COMPARISON: 09/19/2024 FINDINGS: Right knee prosthesis shows no hardware complication. Skin joelle remain anteriorly. No fracture or dislocation. No evidence of osteomyelitis. IMPRESSION: No acute findings seen. ACT 112: Negative or not required by law. Electronically signed by: Usman Ward M.D. 09/27/2024 11:06 AM Venous Doppler Study 09/27/24 10:19 RIGHT LOWER EXTREMITY VENOUS DOPPLER CLINICAL HISTORY: RLE pain, post-op TKA COMPARISON STUDY: Right lower extremity venous Doppler ultrasound September 14, 2023. TECHNIQUE: Sonography of the deep venous system of the right lower extremity was performed. Compression and augmentation were evaluated. FINDINGS: The right common femoral, superficial femoral and popliteal veins were compressible. Augmentation was normal. Flow was shown within the deep calf vessels. Lower extremity subcutaneous edema is noted. IMPRESSION: No evidence of deep venous thrombus within the right lower extremity. ACT 112: Negative or not required by law. Electronically signed by: Félix Delatorre M.D. 09/27/2024 11:45 AM ECG Additional Comments: ECG revealed sinus rhythm with premature supraventricular complexes at 68 bpm; QTc 408 Code Status & VTE Plan Code Status Full code VTE Prophylaxis Plan VTE Prophylaxis will be ordered: Yes Supervising Physician Co-Signing Physician Notes Attending Attestation & Admit Note: Pt seen/examined, chart reviewed, admit care plan d/w NALDO Parsons. I agree w/ the roberto components of his documentation with the following addition - ##morbid obesity - BMI 43## 79yo male with psoriatic arthritis on biologic therapy, chronic diarrhea, pre- DM, morbid obesity, lumbar radiculopathy, previous h/o DVT/PE on chronic coumadin therapy. Underwent RIGHT TKR with Dr. Lopez on 09/19, and was hospitalized from 09/19 - 09/25. He was awaiting rehab placement, but his insurance auth , and he ultimately returned home with plans for HH PT/OT. At home, however, he had significant difficulty getting around his home, had increased pain/weakness in the right leg/knee, and had worsening redness & tenderness of the right thompson. PMH/PSH/allergies/meds/sochx - reviewed VSS, afebrile, O2 sats wnl exam: gen - obese, NAD, lying comfortably in bed neck - no JVD mouth - MMM heart - RRR, s1 s2 lungs - CTA b/l abd - soft NT ND BS+ musculo - right knee with swelling, joelle intact overlying his vertical incision, no drainage; minimal inflammatory pink erythema surrounding the joelle; with active ROM he reports pain of the right knee skin - b/l venous stasis changes/mild hyperpigmentation of shins; right leg/thompson - warm erythema extending from just below his TKR incision to just above the ankle; there is a tiny blister overlying the right distal thompson that has not ruptured; there is swelling of of the right thompson/ankle/foot, about 1+ psych - a/o x 3 labs reviewed imaging reviewed EKG - NSR, no ST Changes A/P: 1. s/p Right TKR on 09/[address] Lopez 2. RLE cellulitis; this spares the TKR incision as well as the joint itself 3. ambulatory dysfunction - 2nd to pain from #1, pain/tenderness from #2, deconditioning, etc. 4. known psoriatic arthritis on biologic therapy 5. pre-DM - a1c 5.9% in August 2024 6. h/o DVT & PE on chronic coumadin -ortho consult to check the TKR -ancef IV, daptomycin IV - latter for MRSA coverage -follow blood cx's -pain control, ice, etc. -will need PT/OT and likely rehab placement -agree with lovenox bridge until INR is >2 on his coumadin; daily INR while here -would utilize DM diet given pre-DM and glucose levels have been >100 -would check BSGs ac/hs as well and institute therapy if needed; euglycemia will be needed to ensure best recovery from his surgery Aries Greenfield MD PG Care Time/CCT Total # of Minutes Spent Total Time Spent with Patient: Total time spent is greater than 50% in coordination of care (as documented) at patient's floor/unit and/or counseling patient: Coding [place] [address] INT INP/OBS CARE 3/75MIN Patient Type Established Medical Decision Making High Complexity Diagnoses Ambulatory dysfunction R26.2 History of arthroplasty of right knee Z96.651 Cellulitis of right lower leg L03.115 Morbid obesity with BMI of 40.0-44.9, adult E66.01; Z68.41
--- NOTE | 2024-09-27 11:08 | XRay Report ---
XR knee RT 1 or 2V routine CLINICAL HISTORY: R knee pain/infx, 8d s/p TKA COMPARISON: 09/19/2024 FINDINGS: Right knee prosthesis shows no hardware complication. Skin joelle remain anteriorly. No f racture or dislocation. No evidence of osteomyelitis. IMPRESSION: No acute findings seen. ACT 112: Negative or not required by law. Electronically signed by: Usman Ward M.D. 09/27/2024 11:06 AM
[2024-09-27 11:15] LABS: Albumin Globulin Ratio 1.1 (0.9-2); Albumin Level 3.6 gm/dl (3.4-5.0); BUN Creatinine Ratio 19.4 (10-20); Bilirubin,Total 0.9 mg/dl (0.2-1.0); Creatinine Clr Calc Pharmacy 89.7 ml/min; Globulin 3.3 gm/dl (2.5-4.0); Potassium 4.1 mmol/L (3.5-5.1); Total Protein 6.9 gm/dl (6.0-8.3)
[2024-09-27 11:28] LABS: INR 1.7 (0.9-1.1); Prothrombin Time 17.9 Seconds (9.0-12.0)
[2024-09-27 11:42] LABS: C Reactive Protein 9.15 mg/dl (0-0.5)
--- NOTE | 2024-09-27 11:48 | Ultrasound Report ---
RIGHT LOWER EXTREMITY VENOUS DOPPLER CLINICAL HISTORY: RLE pain, post-op TKA COMPARISON STUDY: Right lower extremity venous Doppler ultrasound September 14, 2023. TECHNIQUE: Sonography of the deep venous system of the right lower extremity was performed. Compress ion and augmentation were evaluated. FINDINGS: The right common femoral, superficial femoral and popliteal veins were compressible. Augme ntation was normal. Flow was shown within the deep calf vessels. Lower extremity subcutaneous edema i s noted. IMPRESSION: No evidence of deep venous thrombus within the right lower extremity. ACT 112: Negative or not required by law. Electronically signed by: Félix Delatorre M.D. 09/27/2024 11:45 AM
--- NOTE | 2024-09-27 11:51 | Orthopedic Consultation ---
Date of Service September 27, 2024 Assessment & Plan (1) Status post total right knee replacement: * Case reviewed with Dr. Lopez * Exam findings more concerning for lower extremity cellulitis then acute knee pathology * Agree with admission to hospital medicine team for IV antibiotics * Will continue to monitor knee, low concern for PJI, no further workup indicated at this time * Dressing/local wound care to the incision as needed, however if not draining may be left open to air * Disposition: TBD, would recommend inpatient rehab/SNF * Daily treatment: Physical Therapy/ Occupational Therapy per protocol * Weight bearing status: WBAT RLE * Pain control * DVT prophylaxis, okay to continue home dose Coumadin from orthopedic standpoint * DESMOND stockings/SCD recommended * Remainder care per primary team * Will continue to follow throughout hospitalization (2) Cellulitis of right lower leg: History of Present Illness Reason for Consultation: .Right knee pain Requesting Physician: . .Patient is a 79-year-old male with right knee pain. Well-known to orthopedic service with recent history of right TKA 09/19/[address] Lopez. Patient required extended hospitalization secondary to discharge planning, initial recommendation was for rehab however was not approved by insurance, ultimately returned home with home PT due to prolonged wait for SNF. Patient had been r ecovering at home for the past 2 days, however this morning was getting off toilet and felt weak and lost his balance falling into his tub and impacting his right knee. Referred to ED for further evaluation by home PT team. Patient also with increasing edema and redness of the right lower leg. States that he has had issues with swelling and cellulitis of this leg in the past. ED workup including XR right knee with intact prosthesis, no malalignment. Also RLE Doppler study negative for DVT. Blood cultures pending. Admitted to hospital medicine team for management of right lower extremity cellulitis, orthopedics consulted for management recommendations regarding the right knee. At time of exam patient sitting comfortably in bed, no acute distress. Endorses moderate pain to the right knee that increases with ambulation or activity. Also reports moderate swelling and pain throughout the lower leg. Reports erythema has been increasing steadily over the past few days. Bilateral venous stasis changes noted in both legs prior to discharge during his most recent hospitalization, however cellulitis not present at that time. Of note patient did develop a small skin blister of the right thompson, this is intact today with no drainage, suspect this is secondary to prolonged soft tissue edema. Patient is ambulating with walker at home. Allergies Allergy/AdvReac Type Severity Reaction Status Date / Time amoxicillin Allergy Intermediate rash Verified 09/19/24 10:34 Penicillins Allergy Intermediate rash Verified 09/19/24 10:34 Home Medications Medication Instructions Recorded Confirmed Type Shower Chair #1 ea 10/04/22 09/18/24 Rx cholecalciferol (vitamin D3) 50 50 mcg PO QAM 09/09/23 09/27/24 History mcg (2,000 unit) capsule cyanocobalamin (vitamin B-12) 1,000 mcg PO QAM 09/09/23 09/27/24 History 1,000 mcg tablet multivitamin with minerals 1 cap PO QAM 09/10/23 09/27/24 History gabapentin 300 mg capsule 300 mg PO TID #90 caps 05/30/24 09/27/24 Rx pantoprazole 40 mg tablet,delayed 40 mg PO QAM 06/28/24 09/27/24 History release walker (Ultra-Light Rollator misc) #1 ea 08/15/24 09/18/24 Rx aripiprazole 5 mg tablet (Abilify) 5 mg PO QAM #90 tabs 08/28/24 09/27/24 Rx alfuzosin 10 mg tablet,extended 10 mg PO QPM #90 tabs 09/05/24 09/27/24 Rx release 24 hr warfarin 5 mg tablet 5 - 7.5 mg PO UD 09/11/24 09/27/24 History acetaminophen 500 mg tablet 1,000 mg (2 x 500 mg) PO TID pain 09/16/24 09/27/24 Rx (Tylenol Extra Strength) 30 days #180 tabs ondansetron 4 mg disintegrating 4 mg PO Q8 PRN nausea #20 tabs 09/16/24 09/27/24 Rx tablet oxycodone 5 mg tablet 5 - 10 mg (1 - 2 x 5 mg) PO Q6 PRN 09/16/24 09/27/24 Rx pain #40 tabs sennosides 8.6 mg tablet (Senokot) 8.6 mg PO BID prevent constipation 09/16/24 09/27/24 Rx 14 days #28 tabs duloxetine 60 mg capsule,delayed 60 mg PO QPM #90 caps 09/27/24 09/27/24 Rx release secukinumab 150 mg/mL subcutaneous 300 mg subcut UD 09/27/24 09/27/24 History pen injector (Cosentyx Pen 300 mg/2 pens () Past Med/Surg History Problem List (Updated 09/27/24 @ 11:56 by Antony Hanson PA-C) Cellulitis of right lower leg Status post total right knee replacement Hydronephrosis Right rotator cuff tear Bilateral primary osteoarthritis of knee Abnormal ankle brachial index (Acute) Constipation Lumbar radiculopathy, right Erectile dysfunction Increased urinary frequency Arthritis Chronic diarrhea Fatty infiltration of liver Morbid obesity (Chronic) BMI 42 Medical History Orthostatic hypotension noted by PCP 07/16/24 visit; lisinopril D/C; monitoring Morbid obesity History of blood transfusion 30 yrs ago Prediabetes diet controlled per pt Low iron hx>iron infusions in past Short-term memory loss "mild" Psoriatic arthritis Lumbar radiculopathy Physical debility uses cane/walker to ambulate Sacroiliitis Chronic venous insufficiency 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, stable per pt halfway current use of 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 Degenerative arthritis of knee, bilateral Depression Sleep apnea does not use device BPH loc w urin obs/LUTS Hx of deep venous thrombosis 2015; on coumadin currently GERD (gastroesophageal reflux disease) controlled, stable per pt Hx pulmonary embolism (~2015) reason for coumadin Lumbago Hx of pancreatitis Generalized osteoarthritis Hiatal hernia Scoliosis History of kidney stones History of colitis last episode more than 10 years ago Macular degeneration Lumbar spondylosis Metabolic syndrome SNHL (sensorineural hearing loss) Asthma denies any inhaler use Benign esophageal stricture hx-resolved Surgical History History of cystoscopy cysto, urethral dilation, R stent placement 07/01/24: [place]: LMA iGel 5 07/30/24: cysto, ureteral dilation, bilat. RP, laser endopyelogram, stent exchange History of anesthesia reaction August 2023>attemped robotic lap abdomen procedure aborted d/t BP dropping H/O abdominal surgery August 2023>lap abdominal procedure attempted in [facility] to correct pouch formation "BP dropped/procedure aborted" History of lithotripsy History of appendectomy History of esophagogastroduodenoscopy (EGD) (~06/2021) History of colonoscopy History of tooth extraction all teeth removed History of bilateral cataract extraction History of cardiac cath 1994? @ [facility] [address]--no stents; no cardio. S/P tonsillectomy S/P hernia repair incisional hernia S/P gastroplasty 36 years ago>currently being seen to have this procedure corrected in a few months. S/P cholecystectomy Family History Family/Other Hearing loss Paternal cousins Mother Heart disease Hypertension Family history of reaction to anesthesia difficulty waking after surgery Other Myocardial infarction No family history of bleeding disorder Prostate cancer Denies family history of Ovarian cancer Breast cancer Colorectal cancer Social History Smoking Status: Never smoker Tobacco Type: Cigarettes Age Started Using Tobacco: 16; Age Quit Using Tobacco: 30; packs per day: 1; Cigarettes Per Day: QUIT ~45 + YRS AGO; Second Hand Exposure: No; Do You Dip or Chew Tobacco: No; Hx Alcohol Use: No Hx Substance Use: No Preferred Language: Austrian Communication Ability: Effective Visual Impairment: Limited Hearing Ability: Use of Hearing Aid Ribbon Winder Required: No Beliefs That Will Affect Care: None marital status: Current Living Situation: Other Current Living Situation Comment: 2 roommates current occupational status: retired How many Children do You have: 1 Feels Safe at Home: No Is there a partner from a previous relationship who is making you feel unsafe now?: No Childhood Exposure to Second-Hand Smoke: Yes Diet: regular caffeine: No Dental Care, Regularly: No Physical Activity Frequency: Does not Exercise Seatbelt Use: always Sunscreen Use: Yes Assistive Devices: Cane, CPAP and Walker Review of Systems All systems reviewed & are unremarkable except as noted in HPI & below. Physical Exam . * General: Alert and oriented, no acute distress * Constitutional: well-developed, well-nourished. * Respiratory: Normal respiratory effort, no distress * Gastrointestinal: No tenderness to palpation, no rigidity or guarding. * Skin: No rash or lesion. * Neurologic: Grossly normal * Musculoskeletal: Right lower extremity with diffuse erythema and edema of the lower leg. Surgical incision CDI, no active drainage or surrounding erythema. Otherwise no obvious deformity or or overlying skin changes to the right leg noted. Again, diffuse edema from the knee region distally with pitting edema throughout the lower leg. Fluid blister to the anterior thompson intact, no drainage. Diffuse mild TTP throughout the distal thigh, anterior knee region, lower leg. AROM knee flexion 0-90 degrees with mild pain. AROM for/ankle intact. Sensation intact plantar/dorsal foot. Results & Data Results & Data Laboratory Results . 09/27/24 10:37 Aerobic Blood Culture - Pending Blood Anaerobic Blood Culture - Pending 09/27/24 10:30 Aerobic Blood Culture - Pending Blood Anaerobic Blood Culture - Pending 09/27/24 10:30 WBC 8.38 RBC 4.12 L Hgb 10.8 L Hct 35.0 L MCV 85.0 MCH 26.2 MCHC 30.9 L RDW Std Deviation 48.0 H RDW Coeff of Monique 15.5 H Plt Count 247 MPV 9.4 Immature Gran % (Auto) 1.1 Neut % (Auto) 67.3 Lymph % (Auto) 14.6 Yancey % (Auto) 13.5 Eos % (Auto) 3.1 Baso % (Auto) 0.4 Neut # (Auto) 5.65 Lymph # (Auto) 1.22 Yancey # (Auto) 1.13 H Eos # (Auto) 0.26 Baso # (Auto) 0.03 Immature Gran # (Auto) 0.09 PT 17.9 H INR 1.7 H Sodium 139 Potassium 4.1 Chloride 103 Carbon Dioxide 31 Anion Gap 5 BUN 20 Creatinine 1.03 Est Cr Clr Drug Dosing 89.7 eGFR 74.35 BUN/Creatinine Ratio 19.4 Glucose 118 H Lactate 0.9 Calcium 9.0 Total Bilirubin 0.9 AST 18 ALT 10 Alkaline Phosphatase 79 C-Reactive Protein 9.15 H Total Protein 6.9 Albumin 3.6 Globulin 3.3 Albumin/Globulin Ratio 1.1 Procalcitonin 0.03 Diagnostic Findings . Knee X-Ray 09/27/24 10:19 XR knee RT 1 or 2V routine CLINICAL HISTORY: R knee pain/infx, 8d s/p TKA COMPARISON: 09/19/2024 FINDINGS: Right knee prosthesis shows no hardware complication. Skin joelle remain anteriorly. No fracture or dislocation. No evidence of osteomyelitis. IMPRESSION: No acute findings seen. ACT 112: Negative or not required by law. Electronically signed by: Usman Ward M.D. 09/27/2024 11:06 AM Venous Doppler Study 09/27/24 10:19 RIGHT LOWER EXTREMITY VENOUS DOPPLER CLINICAL HISTORY: RLE pain, post-op TKA COMPARISON STUDY: Right lower extremity venous Doppler ultrasound September 14, 2023. TECHNIQUE: Sonography of the deep venous system of the right lower extremity was performed. Compression and augmentation were evaluated. FINDINGS: The right common femoral, superficial femoral and popliteal veins were compressible. Augmentation was normal. Flow was shown within the deep calf vessels. Lower extremity subcutaneous edema is noted. IMPRESSION: No evidence of deep venous thrombus within the right lower extremity. ACT 112: Negative or not required by law. Electronically signed by: Félix Delatorre M.D. 09/27/2024 11:45 AM PG Care Time/CCT Total # of Minutes Spent Total Time Spent with Patient: Total time spent is greater than 50% in coordination of care (as documented) at patient's floor/unit and/or counseling patient: Coding [place] [address] IN/OBS CONSULT LVL 3,45M Patient Type Established History Problem Focused Exam Expanded Problem Focused Medical Decision Making Moderate Complexity Diagnoses Status post total right knee replacement Z96.651 Cellulitis of right lower leg L03.115
[2024-09-27 20:44] LABS: Appearance Urine Clear (Clear); Bacteria Urine Automated None Seen (None Seen); Bilirubin Urine 1+ (Negative); Blood Urine Negative (Negative); Cast Urine Automated 0-2 /lpf (0-2); Color Urine Orange; Epithelial Cell Urine Auto 0-2 /hpf (0-2); Glucose Urine UA Negative (Negative); Ketones Urine Negative (Negative); Leukocyte Esterase Urine 1+ (Negative); Nitrite Urine Positive (Negative); Protein Urine 1+ (Negative); RBC Urine Automated 0-2 /hpf (0-2); Specific Gravity Urine 1.032 (1.000-1.030); Urobilinogen Urine Positive (Negative); WBC Urine Automated 0-5 /hpf (0-5)
--- NOTE | 2024-09-28 06:01 | Electrocardiogram Report ---
Test Reason : Blood Pressure : */* mmHG Vent. Rate : 68 BPM Atrial Rate : 68 BPM P-R Int : 160 ms QRS Dur : 78 ms QT Int : 384 ms P-R-T Axes : 43 4 52 degrees QTcB Int : 408 ms Sinus rhythm with Premature supraventricular complexes Otherwise normal ECG When compared with ECG of 02-Jul-2024 09:19, Premature supraventricular complexes are now Present Confirmed by Juan Ramon Hancock ([id number]) on 09/28/2024 6:01:28 AM Referred By: REFERRED SELF Confirmed By: Juan Ramon Hancock
[2024-09-28 06:26] LABS: Hematocrit (blood only) 33.8 % (42.0-52.0); Hemoglobin 10.5 g/dl (14.0-18.0); Mean Corpuscular Hemoglobin 26.6 pg (25.0-34.0); Mean Corpuscular Hgb Conc 31.1 g/dL (32.0-36.0); Mean Corpuscular Volume 85.6 fL (80.0-100.0); Mean Platelet Volume 9.2 fL (9.4-12.4); Platelet Count 253 K/uL (130-400); RDW Coefficient of Variation 15.2 % (11.5-14.5); RDW Standard Deviation 47.7 fL (36.4-46.3); Red Blood Count 3.95 M/uL (4.70-6.10); White Blood Count 7.09 K/ul (4.8-10.8)
[2024-09-28 06:47] LABS: BUN Creatinine Ratio 18.9 (10-20); C Reactive Protein 8.02 mg/dl (0-0.5); Calcium 8.5 mg/dl (8.6-10.3); Creatinine Clr Calc Pharmacy 87.1 ml/min; Potassium 3.9 mmol/L (3.5-5.1)
[2024-09-28 06:55] LABS: INR 2.6 (0.9-1.1); Prothrombin Time 26.3 Seconds (9.0-12.0)
--- NOTE | 2024-09-28 09:16 | Orthopedic Progress Note ---
Date of Service September 28, 2024 Assessment & Plan (1) Venous stasis of lower extremity: (2) Status post total knee replacement, right: POD 9 from a right total knee arthroplasty by Dr. Lopez-being treated with IV ABX for RLE cellulitis. - Exam findings more still consistent for lower extremity cellulitis vs. any acute knee pathology - Continue IV antibiotics as per medicine team - Dressing/local wound care to the incision as needed, however if not draining may be left open to air - Disposition: TBD, would recommend inpatient rehab/SNF - Daily treatment: Physical Therapy/ Occupational Therapy per protocol - Weight bearing status: WBAT RLE - DVT prophylaxis, okay to continue home dose Coumadin from orthopedic standpoint - DESMOND stockings/SCD recommended -Follow-up with Dr. Lopez/Dr. Lopez's team for 2 to 3-week postop visit. I, Dr. Lopez, evaluated this patient. I do not think he has active cellulitis and this is just exacerbation of his chronic venous stasis changes due to the swelling from the surgery. We will continue to treat him with some antibiotics for now but can be oral. We do not need aggressive treatment and I did once again think it is unlikely he has got any cellulitis/infection. We do need to get him into some DESMOND stockings and SCDs to limit the swelling. He needs strict elevation of his legs when not walking. He is going to need halfway facility stay as he is not safe at home as determined by his last to 48 hours. Orthopedically is okay for discharge to halfway facility anytime medically ready. I recommend for now cefadroxil 500 mg twice a day for 10 days. (3) Cellulitis of right leg: Subjective Operation Date: 09/19/24 12:30 Actual Procedures p Right Total Knee Arthroplasty(Right) - Keanu Lopez MD Patient is a 79-year-old male who is 9 days out from a right total knee arthroplasty. He did report back to the emergency department as he was having right lower extremity edema, erythema and warmth. He was found to have right lower extremity cellulitis. This is what he is being treated for. From an orthopedic standpoint, nothing urgent needed for the right knee. Dr. Lopez did evaluate the patient and did not feel that there was any intra-articular knee pathology. At today's progress visit, the patient states he is doing fine. States that his pain is much improved. States that the swelling and redness in his leg does seem to be getting a little bit better. No other questions or concerns today. Review of Systems All systems reviewed & are unremarkable except as noted in HPI & below. Physical Exam General: Alert and oriented. In no acute distress. Right lower extremity: There is a marker drawn where the erythema was at its highest point up in the leg. It is not crossing this. It is slightly receding. Patient is minimally tender to the right lower extremity. He has good range of motion of the right knee. There is no erythema of the right knee or any issues with the surgical wound. No drainage. Neurovascularly intact in the right lower extremity. Results & Data Results & Data Laboratory Results . Diagnostic Findings . PG Care Time/CCT Total # of Minutes Spent Total Time Spent with Patient: Total time spent is greater than 50% in coordination of care (as documented) at patient's floor/unit and/or counseling patient: Coding Level of Care Code 93800 Post Operative Follow-Up Diagnoses Venous stasis of lower extremity I87.8 Status post total knee replacement, right Z96.651 Cellulitis of right leg L03.115
--- NOTE | 2024-09-28 11:15 | Infectious Disease Consult ---
Date of Consultation September 28, 2024 Assessment & Plan (1) Cellulitis of right leg: (2) Status post total knee replacement, right: (3) Morbid obesity: Plan 79yo M with h/o obesity, asthma, lumbar radiculopathy, DVT, prediabetes, arthritis, admission 06/30-07/12 with right obstructive uropathy with pyelonephritis 2/2 E coli (tx with CTX>cefdinir for > 10d) with c/f stricture disease possible UPJ obstruction s/p right ureteral stent 07/01/24 then ureteral dilation, endopyelotomy, and stent exchange on 07/2024, right total knee arthroplasty on 09/19 with admission 09/19-09/25 for ambulatory dysfunction who presented on 09/27 with increasing pain and weakness in the right knee, noted fall at home and hit right knee on tub. On admission, he was afebrile, vss. Initial labs with WBC and Cr wnl, LFT wnl. Lactate neg. ESR 81, CRP 9.15. PCT 0.03. UA neg. XR knee negative. RLE doppler neg for DVT. He has been started on daptomycin and cefazolin for RLE cellulitis. Seen by neurology, no focal neurologic findings. ID consulted 09/28. RLE does have some chronic skin changes and he doesnt have any pain in the leg specifically. He does say it is tender to touch and is warm. Appears more erythematous than the left. MRSA screen negative. [place] stopped daptomycin, continue on cefazolin. # Right leg cellulitis # Recent right TKA # Morbid obesity - f/u blood cx - [place] stopped daptomycin given neg MRSA screen - continue cefazolin 2g IV q8h - if negative BCX and cellulitis improving, can change to PO regimen (ie cefadroxil 500mg PO bid or Keflex 500mg PO q6h) for a duration of 7-10 days Will continue to follow. If questions or concerns, contact via [email or web address] or Infectious Disease Call Center . Leah Gutierrez MD [facility], Division of Infectious Diseases Consultation Information Consultation was provided via telemedicine using two-way real-time interactive telecommunication between the patient and the telemedicine provider. For the duration of the visit, the provider was performing the assessment from a different facility than the patient. This includesuse of bluetooth stethoscope forauscultationperformed by the telepresenter that the telemedicine provider can hear if described in the physical exam. [employer] Bleacher contact information: Please call [facility] Call Center . (Phone Number For Physician Use Only) After establishing a telemedicine visit, patient was: Patient was verified with two unique identifiers, Patient/authorized rep acknowledged consent and understanding and Gave permission to continue telehealth session Time Spent with Patient: Initial => 75 min History of Present Illness Reason for Consultation: cellulitis in setting of recent knee operation Attending Physician: Reynaldo Hobbs History of Present Illness 79yo M with h/o obesity, asthma, lumbar radiculopathy, DVT, prediabetes, arthritis, admission 06/30-07/12 with right obstructive uropathy with pyelonephritis / E coli (tx with CTX>cefdinir for > 10d) with c/f stricture disease possible UPJ obstruction s/p right ureteral stent 07/01/24 then ureteral dilation, endopyelotomy, and stent exchange on 07/2024, right total knee arthroplasty on 09/19 with admission 09/19-09/25 for ambulatory dysfunction who presented on 09/27 with increasing pain and weakness in the right knee while he was at home. He reported feeling unsafe to be at home due to instability. Also had a fall from seated position in the morning and hit his right knee on the tub. He has redness of right leg, no purulent drainage or bleeding. On admission, he was afebrile, vss. Initial labs with WBC and Cr wnl, LFT wnl. Lactate neg. ESR 81, CRP 9.15. PCT 0.03. UA neg. XR knee negative. RLE doppler neg for DVT. He has been started on daptomycin and cefazolin for RLE cellulitis. ID consulted 09/28. On evaluation, patient says he feels a little better today. Notes redness of right leg. Has a blister on the leg, but no drainage that hes noticed. He endorses constipation, but otherwise no chest pain, SOB, abdominal pain, vomiting. He denies any pain in his right knee. He says hes been taking an antibiotic at home but he doesnt know what. Allergies Allergy/AdvReac Type Severity Reaction Status Date / Time amoxicillin Allergy Intermediate rash Verified 09/19/24 10:34 Penicillins Allergy Intermediate rash Verified 09/19/24 10:34 Home Medications Medication Instructions Recorded Confirmed Type Shower Chair #1 ea 10/04/22 09/18/24 Rx cholecalciferol (vitamin D3) 50 50 mcg PO QAM 09/09/23 09/27/24 History mcg (2,000 unit) capsule cyanocobalamin (vitamin B-12) 1,000 mcg PO QAM 09/09/23 09/27/24 History 1,000 mcg tablet multivitamin with minerals 1 cap PO QAM 09/10/23 09/27/24 History gabapentin 300 mg capsule 300 mg PO TID #90 caps 05/30/24 09/27/24 Rx pantoprazole 40 mg tablet,delayed 40 mg PO QAM 06/28/24 09/27/24 History release walker (Ultra-Light Rollator misc) #1 ea 08/15/24 09/18/24 Rx aripiprazole 5 mg tablet (Abilify) 5 mg PO QAM #90 tabs 08/28/24 09/27/24 Rx alfuzosin 10 mg tablet,extended 10 mg PO QPM #90 tabs 09/05/24 09/27/24 Rx release 24 hr warfarin 5 mg tablet 5 - 7.5 mg PO UD 09/11/24 09/27/24 History acetaminophen 500 mg tablet 1,000 mg (2 x 500 mg) PO TID pain 09/16/24 09/27/24 Rx (Tylenol Extra Strength) 30 days #180 tabs ondansetron 4 mg disintegrating 4 mg PO Q8 PRN nausea #20 tabs 09/16/24 09/27/24 Rx tablet oxycodone 5 mg tablet 5 - 10 mg (1 - 2 x 5 mg) PO Q6 PRN 09/16/24 09/27/24 Rx pain #40 tabs sennosides 8.6 mg tablet (Senokot) 8.6 mg PO BID prevent constipation 09/16/24 09/27/24 Rx 14 days #28 tabs duloxetine 60 mg capsule,delayed 60 mg PO QPM #90 caps 09/27/24 09/27/24 Rx release secukinumab 150 mg/mL subcutaneous 300 mg subcut UD 09/27/24 09/27/24 History pen injector (Cosentyx Pen 300 mg/2 pens () Patient History Medical History Orthostatic hypotension noted by PCP 07/16/24 visit; lisinopril D/C; monitoring Morbid obesity History of blood transfusion 30 yrs ago Prediabetes diet controlled per pt Low iron hx>iron infusions in past Short-term memory loss "mild" Psoriatic arthritis Lumbar radiculopathy Physical debility uses cane/walker to ambulate Sacroiliitis Chronic venous insufficiency 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, stable per pt MCC current use of 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 Degenerative arthritis of knee, bilateral Depression Sleep apnea does not use device BPH loc w urin obs/LUTS Hx of deep venous thrombosis 2015; on coumadin currently GERD (gastroesophageal reflux disease) controlled, stable per pt Hx pulmonary embolism (~2015) reason for coumadin Lumbago Hx of pancreatitis Generalized osteoarthritis Hiatal hernia Scoliosis History of kidney stones History of colitis last episode more than 10 years ago Macular degeneration Lumbar spondylosis Metabolic syndrome SNHL (sensorineural hearing loss) Asthma denies any inhaler use Benign esophageal stricture hx-resolved Surgical History History of cystoscopy cysto, urethral dilation, R stent placement 07/01/24: [place]: LMA iGel 5 07/30/24: cysto, ureteral dilation, bilat. RP, laser endopyelogram, stent exchange History of anesthesia reaction August 2023>attemped robotic lap abdomen procedure aborted d/t BP dropping H/O abdominal surgery August 2023>lap abdominal procedure attempted in [facility] to correct pouch formation "BP dropped/procedure aborted" History of lithotripsy History of appendectomy History of esophagogastroduodenoscopy (EGD) (~06/2021) History of colonoscopy History of tooth extraction all teeth removed History of bilateral cataract extraction History of cardiac cath 1994? @ [facility]--no stents; no cardio. S/P tonsillectomy S/P hernia repair incisional hernia S/P gastroplasty 36 years ago>currently being seen to have this procedure corrected in a few months. S/P cholecystectomy Family History Family/Other Hearing loss Paternal cousins Mother Heart disease Hypertension Family history of reaction to anesthesia difficulty waking after surgery Other Myocardial infarction No family history of bleeding disorder Prostate cancer Denies family history of Ovarian cancer Breast cancer Colorectal cancer Social History Smoking Status: Never smoker Tobacco Type: Cigarettes Age Started Using Tobacco: 16; Age Quit Using Tobacco: 30; packs per day: 1; Cigarettes Per Day: QUIT ~45 + YRS AGO; Second Hand Exposure: No; Do You Dip or Chew Tobacco: No; Hx Alcohol Use: No Hx Substance Use: No Preferred Language: Tajik Communication Ability: Effective Visual Impairment: Limited Hearing Ability: Use of Hearing Aid Scheduling Manager Required: No Beliefs That Will Affect Care: None marital status: Current Living Situation: Other Current Living Situation Comment: with roommates current occupational status: retired How many Children do You have: 1 Feels Safe at Home: Yes Childhood Exposure to Second-Hand Smoke: Yes Diet: regular caffeine: No Dental Care, Regularly: No Physical Activity Frequency: Does not Exercise Seatbelt Use: always Sunscreen Use: Yes Assistive Devices: Cane and Walker Review of System 10-point review of systems reviewed and are negative except for as above. Physical Exam Physical Exam: General: Awake, alert, no acute distress HEENT: NC/AT, EOMI, mmm Neck: supple Lungs: respirations non-labored Heart: nl peripheral perfusion Abdomen: soft, NT/ND Ext: RLE edema with erythema in lower leg, anterior thompson blister, no drainage, no erythema of foot, +swelling; right knee with well healing wound, no erythema or tenderness Skin: as above Neuro: moving all extremities Results & Data Vital Signs (Past 12 Hours) Vital Signs Temp Pulse Resp BP Pulse Ox O2 Del Method 09/28/24 07:44 36.4 C L 73 18 123/71 95 Room Air Laboratory Results Labs reviewed. Diagnostic Findings Imaging reviewed.
--- NOTE | 2024-09-28 13:42 | Hospitalist Progress Note ---
"Date of Service September 28, 2024 Assessment & Plan (1) Ambulatory dysfunction: (2) History of arthroplasty of right knee: (3) Cellulitis of right lower leg: Plan This is a 79-year-old male who presented on 09/27 for ambulatory dysfunction. Recent R TKA on 09/[address] Lopez. Originally discharged home on home health on 09/25, but patient developed worsening of pain and ambulatory dysfunction. Coming back in for SNF rehab placement. #Recent history of right TKA | ambulatory dysfunction Orthopedics consult appreciated PT/OT evaluations appreciated Fall precautions Case management consult appreciated for SNF rehab placement Pain regimen as follows: Acetaminophen 1000 mg TID Gabapentin 300 mg TID Oxycodone 5-10 mg p.o. tablets PRN for breakthrough pain Continue bowel regimen #Right lower extremity cellulitis No leukocytosis; afebrile; VSS on admission Elevated CRP and ESR Procalcitonin WNL Findings more concerning for a RLE cellulitis, rather than acute knee infection However no improvement clinically from yesterday Patient denies prior history of MRSA infection; no purulent drainage However, given recent hospitalization and rapid progression of erythema and swelling moving towards the knee, will cover for potential MRSA infection Continue Ancef 2 gr IV Q8h and Daptomycin 1050 mg IV q24h Will consult ID Could transition to Zyvox upon discharge (which would require holding duloxetine) Continue to monitor inflammatory markers #History of DVT/pulmonary embolism No evidence of DVT on RLE Doppler on arrival Continue current warfarin regimen INR 1.7 on arrival; now therapeutic *discontinued Lovenox Trend PT/INR #Depression/anxiety Continue duloxetine, aripiprazole #GERD Continue PPI Disposition: Admit to [facility] PPx: Warfarin; Admission and Anticipated Discharge Date Admission Date: September 27, 2024 Subjective Patient reports still having pain in his thompson and knee. Though he reports the type of pain is different between the right knee and right thompson. Physical Exam Physical Exam: General: Awake, alert, no acute distress HEENT: NC/AT, EOMI, mmm Neck: supple Lungs: respirations non-labored Heart: nl peripheral perfusion Abdomen: soft, NT/ND Ext: RLE edema with erythema/warmth/tenderness in lower leg, anterior thompson blister, no drainage, no erythema of foot, +swelling; right knee with well healing wound, no erythema or tenderness Skin: as above Neuro: moving all extremities Results & Data Results & Data Vital Signs (Past 12 Hours) Vital Signs Temp Pulse Resp BP Pulse Ox O2 Del Method 09/28/24 07:44 36.4 C L 73 18 123/71 95 Room Air PG Care Time/CCT Total # of Minutes Spent Total Time Spent with Patient: Total time spent is greater than 50% in coordination of care (as documented) at patient's floor/unit and/or counseling patient: Coding Level of Care Code 35731 SUB INP/OBS CARE 3/50MIN Diagnoses Ambulatory dysfunction R26.2 History of arthroplasty of right knee Z96.651 Cellulitis of right lower leg L03.115"
[2024-09-29 06:06] LABS: Hematocrit (blood only) 32.9 % (42.0-52.0); Hemoglobin 10.4 g/dl (14.0-18.0); Mean Corpuscular Hemoglobin 26.4 pg (25.0-34.0); Mean Corpuscular Hgb Conc 31.6 g/dL (32.0-36.0); Mean Corpuscular Volume 83.5 fL (80.0-100.0); Mean Platelet Volume 9.4 fL (9.4-12.4); Platelet Count 257 K/uL (130-400); RDW Coefficient of Variation 15.3 % (11.5-14.5); RDW Standard Deviation 46.3 fL (36.4-46.3); Red Blood Count 3.94 M/uL (4.70-6.10); White Blood Count 6.49 K/ul (4.8-10.8)
[2024-09-29 06:20] LABS: BUN Creatinine Ratio 17.8 (10-20); C Reactive Protein 7.98 mg/dl (0-0.5); Calcium 8.6 mg/dl (8.6-10.3); Creatinine Clr Calc Pharmacy 102.6 ml/min
[2024-09-29 06:44] LABS: INR 3.3 (0.9-1.1); Prothrombin Time 32.4 Seconds (9.0-12.0)
--- NOTE | 2024-09-29 08:44 | Orthopedic Progress Note ---
Date of Service September 29, 2024 Assessment & Plan (1) Status post total knee replacement, right: Plan: 79-year-old gentleman with multiple medical comorbidities now 10 days out from right knee replacement. He has been readmitted for ambulatory dysfunction and swelling. He has been given a diagnosis of cellulitis but I do not think he actually has cellulitis just worsening of his venous stasis changes which is to be expected after knee surgery. Is got no signs of joint infection. There is no drainage. Clinically this all looks like venous stasis changes. Plan: Patient is now back on his normal dose of Coumadin with a therapeutic INR. Will continue Coumadin. No need for additional anticoagulation. Will continue him on his current antibiotics per infectious disease but does not need aggressive treatment. I will likely discharge him on 1 week of cefoxitin 0 500 mg twice a day when able to discharge if needed. Continue teds and SCDs. PT as per protocol. Elevate legs is much as possible while in bed. (2) Morbid obesity with BMI of 40.0-44.9, adult: (3) Venous stasis of lower extremity: (4) Ambulatory dysfunction: Admission and Anticipated Discharge Date Admission Date: September 27, 2024 Subjective 79-year-old gentleman now 10 days out from a right total knee replacement. He was discharged home did not do well and now been readmitted. Some moderate discomfort but nothing out of the ordinary for knee replacement. No chest pain or shortness of breath. He has been up and out of bed. Physical Exam Physical Exam: Physical nation is a pleasant middle-aged male. Lying bed looks comfortable. Examination of the right leg reveals the incision to be clean dry and intact. Some moderate amount of swelling appears Chronic venous stasis changes distally. He can dorsiflex and plantarflex foot appropriately. Can do a straight leg raise with a little bit of a lag. His extensor mechanism appears intact. Chronic venous stasis changes which have been exacerbated by the swelling. Results & Data Vital Signs (Past 12 Hours) Vital Signs Temp Pulse Resp BP Pulse Ox O2 Del Method 09/29/24 07:32 36.6 C 75 17 148/78 H 96 Room Air
--- NOTE | 2024-09-29 11:30 | Hospitalist Progress Note ---
"Date of Service September 29, 2024 Assessment & Plan (1) Ambulatory dysfunction: (2) History of arthroplasty of right knee: (3) Cellulitis of right lower leg: (4) Morbid obesity with BMI of 40.0-44.9, adult: Plan This is a 79-year-old male who presented on 09/27 for ambulatory dysfunction. Recent R TKA on 09/[address] Lopez. Originally discharged home on home health on 09/25, but patient developed worsening of pain and ambulatory dysfunction. Coming back in for SNF rehab placement. #Recent history of right TKA | ambulatory dysfunction Orthopedics consult appreciated PT/OT evaluations appreciated Fall precautions Case management consult appreciated for SNF rehab placement Pain regimen as follows: Acetaminophen 1000 mg TID Gabapentin 300 mg TID Oxycodone 5-10 mg p.o. tablets PRN for breakthrough pain Continue bowel regimen #Right lower extremity cellulitis No leukocytosis; afebrile; VSS on admission Elevated CRP and ESR Procalcitonin WNL Findings more concerning for a RLE cellulitis, rather than acute knee infection Patient denies prior history of MRSA infection; no purulent drainage However, given recent hospitalization and rapid progression of erythema and swelling moving towards the knee, will cover for potential MRSA infection Daptomycin 1050 mg IV q24h Could transition to Zyvox upon discharge (which would require holding duloxetine) Continue Ancef 2000 mg IV q8h Continue to monitor inflammatory markers #History of DVT/pulmonary embolism No evidence of DVT on RLE Doppler on arrival Continue current warfarin regimen INR 1.7 on arrival Initiate Lovenox SQ daily while INR < 2 *discontinue Lovenox once INR is within therapeutic range Trend PT/INR #Depression/anxiety Continue duloxetine, aripiprazole #GERD Continue PPI Disposition: Admit to [facility] PPx: Warfarin; Lovenox 40 mg SQ q12h while INR <2.0 A/P: 1. s/p Right TKR on 09/[address] Lopez 2. RLE cellulitis; this spares the TKR incision as well as the joint itself 3. ambulatory dysfunction - 2nd to pain from #1, pain/tenderness from #2, deconditioning, etc. 4. known psoriatic arthritis on biologic therapy 5. pre-DM - a1c 5.9% in August 2024 6. h/o DVT & PE on chronic coumadin -ortho consult to check the TKR -ancef IV, daptomycin IV - latter for MRSA coverage -follow blood cx's -pain control, ice, etc. -will need PT/OT and likely rehab placement -agree with lovenox bridge until INR is >2 on his coumadin; daily INR while here -would utilize DM diet given pre-DM and glucose levels have been >100 -would check BSGs ac/hs as well and institute therapy i Admission and Anticipated Discharge Date Admission Date: September 27, 2024 Subjective 79-year-old gentleman now 10 days out from a right total knee replacement. He was discharged home did not do well and now been readmitted. Some moderate discomfort but nothing out of the ordinary for knee replacement. No chest pain or shortness of breath. He has been up and out of bed. Physical Exam Physical Exam: General: Alert and oriented. In no acute distress. Right lower extremity: There is a marker drawn where the erythema was at its highest point up in the leg. It is not crossing this. It is slightly receding. Patient is minimally tender to the right lower extremity. He has good range of motion of the right knee. There is no erythema of the right knee or any issues with the surgical wound. No drainage. Neurovascularly intact in the right lower extremity. Patient is morbidly obese with a BMI greater than 44 discussed with patient about losing weight and increasing physical activity Results & Data Results & Data Vital Signs (Past 12 Hours) Vital Signs Temp Pulse Resp BP Pulse Ox O2 Del Method 09/29/24 07:32 36.6 C 75 17 148/78 H 96 Room Air PG Care Time/CCT Total # of Minutes Spent Total Time Spent with Patient: Total time spent is greater than 50% in coordination of care (as documented) at patient's floor/unit and/or counseling patient: Coding Level of Care Code 67906 SUB INP/OBS CARE 2/35MIN Diagnoses Ambulatory dysfunction R26.2 History of arthroplasty of right knee Z96.651 Cellulitis of right lower leg L03.115 Morbid obesity with BMI of 40.0-44.9, adult E66.01; Z68.41 Time Spent (min) 35"
--- NOTE | 2024-09-30 07:41 | Orthopedic Progress Note ---
Date of Service September 30, 2024 Assessment & Plan (1) Status post total knee replacement, right: Plan: 79-year-old morbidly obese gentleman 11 days out from a total knee replacement readmitted for ambulatory dysfunction swelling and potential cellulitis. He seems to be improving. He is doing better in the hospital because he is elevating his leg and he is been wearing his AZEEM stockings although he has them off this morning for unclear reasons. His pain seems to be improving. Plan: 1. DVT prophylaxis including thigh-high teds, SCDs, and back on his normal Coumadin dose. 2. PT/OT. Weight-bear as tolerated right total knee protocol. 3.. Need strict elevation for his venous stasis changes. Needs to wear stockings is much as possible. Unfortunately he seems to take these off regularly which accounts for his swelling. I do not think he is got any cellulitis and this is all just venous stasis changes due to his surgery 4. Disposition. He is orthopedically okay for discharge anytime long-term facility available. We will send him probably home on 7 to 10 days of p.o. antibiotics. Cefoxitin gel 500 mg twice a day would be fine. (2) Venous stasis of lower extremity: (3) Morbid obesity with BMI of 40.0-44.9, adult: Admission and Anticipated Discharge Date Admission Date: September 27, 2024 Subjective 79-year-old gentleman now 11 days out from a total knee replacement. He has been readmitted for ambulatory dysfunction and pain swelling and potential cellulitis. He is doing bit better this morning. Still hoping to go to long-term facility. Pain seems to be improved. He is walking around the room this morning using his walker but once again had a Azeem stocking off. Physical Exam Physical Exam: Physical nation was a pleasant elderly male. He was walking around his room and looks pretty comfortable this morning. Examination of the right leg reveals the incision to be healing nicely. There is no drainage. Swelling is improved. He is not wearing his stocking. The redness and swelling in his venous stasis changes is improved. Results & Data Vital Signs (Past 12 Hours) Vital Signs Temp Pulse Resp BP Pulse Ox O2 Del Method 09/30/24 07:15 36.7 C 67 16 148/68 H 95 Room Air 09/29/24 20:45 Room Air Laboratory Results Labs are pending
--- NOTE | 2024-09-30 19:30 | Hospitalist Progress Note ---
"Date of Service September 30, 2024 Assessment & Plan (1) Ambulatory dysfunction: (2) History of arthroplasty of right knee: (3) Cellulitis of right lower leg: (4) Morbid obesity with BMI of 40.0-44.9, adult: Plan This is a 79-year-old male who presented on 09/27 for ambulatory dysfunction. Recent R TKA on 09/[address] Lopez. Originally discharged home on home health on 09/25, but patient developed worsening of pain and ambulatory dysfunction. Coming back in for SNF rehab placement. #Recent history of right TKA | ambulatory dysfunction Orthopedics consult appreciated PT/OT evaluations appreciated Fall precautions Case management consult appreciated for SNF rehab placement Pain regimen as follows: Acetaminophen 1000 mg TID Gabapentin 300 mg TID Oxycodone 5-10 mg p.o. tablets PRN for breakthrough pain Continue bowel regimen #Right lower extremity cellulitis No leukocytosis; afebrile; VSS on admission Elevated CRP and ESR Procalcitonin WNL Findings more concerning for a RLE cellulitis, rather than acute knee infection Patient denies prior history of MRSA infection; no purulent drainage Blood cultures have been negative change IV antibiotics to oral antibiotics p.o. Continue to monitor inflammatory markers #History of DVT/pulmonary embolism No evidence of DVT on RLE Doppler on arrival Continue current warfarin regimen INR 1.7 on arrival Initiate Lovenox SQ daily while INR < 2 *discontinue Lovenox once INR is within therapeutic range Trend PT/INR #Depression/anxiety Continue duloxetine, aripiprazole #GERD Continue PPI Disposition: Admit to [facility] VTE PPx: Warfarin; Lovenox 40 mg SQ q12h while INR <2.0 A/P: 1. s/p Right TKR on 09/[address] Lopez 2. RLE cellulitis; this spares the TKR incision as well as the joint itself 3. ambulatory dysfunction - 2nd to pain from #1, pain/tenderness from #2, deconditioning, etc. 4. known psoriatic arthritis on biologic therapy 5. pre-DM - a1c 5.9% in August 2024 6. 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 -will need PT/OT and likely rehab placement -agree with lovenox bridge until INR is >2 on his coumadin; daily INR while here -would utilize DM diet given pre-DM and glucose levels have been >100 -would check BSGs ac/hs as well and institute therapy i Admission and Anticipated Discharge Date Admission Date: September 27, 2024 Subjective 79-year-old gentleman now 11 days out from a total knee replacement. He has been readmitted for ambulatory dysfunction and pain swelling and potential cellulitis. He is doing bit better this morning. Still hoping to go to long-term facility. Pain seems to be improved. He is walking around the room this morning using his walker but once again had a Azeem stocking off. Patient reports that he had a good day today blood cultures have so far been negative I have discontinued IV antibiotics as recommended by infectious disease and started patient on oral Keflex Review of Systems Review of Systems: Patient denies any chest pain shortness of breath abdominal pain or any discomfort Physical Exam Physical Exam: General: Alert and oriented. In no acute distress. Right lower extremity: There is a marker drawn where the erythema was at its highest point up in the leg. It is not crossing this. It is slightly receding. Patient is minimally tender to the right lower extremity. He has good range of motion of the right knee. There is no erythema of the right knee or any issues with the surgical wound. No drainage. Neurovascularly intact in the right lower extremity. Patient is morbidly obese with a BMI greater than 44 discussed with patient about losing weight and increasing physical activity Results & Data Results & Data Vital Signs (Past 12 Hours) Vital Signs Temp Pulse Resp BP Pulse Ox O2 Del Method 09/30/24 15:42 36.6 C 67 16 150/74 H 97 Room Air Laboratory Results Elevated CRP and ESR levels noted PG Care Time/CCT Total # of Minutes Spent Total Time Spent with Patient: Total time spent is greater than 50% in coordination of care (as documented) at patient's floor/unit and/or counseling patient: Coding Level of Care Code 79447 SUB INP/OBS CARE 2/35MIN Diagnoses Ambulatory dysfunction R26.2 History of arthroplasty of right knee Z96.651 Cellulitis of right lower leg L03.115 Morbid obesity with BMI of 40.0-44.9, adult E66.01; Z68.41"
[2024-10-01 06:17] LABS: Hematocrit (blood only) 36.6 % (42.0-52.0); Hemoglobin 11.2 g/dl (14.0-18.0); Mean Corpuscular Hemoglobin 26.1 pg (25.0-34.0); Mean Corpuscular Hgb Conc 30.6 g/dL (32.0-36.0); Mean Corpuscular Volume 85.3 fL (80.0-100.0); Mean Platelet Volume 9.1 fL (9.4-12.4); Platelet Count 295 K/uL (130-400); RDW Coefficient of Variation 15.2 % (11.5-14.5); RDW Standard Deviation 46.7 fL (36.4-46.3); Red Blood Count 4.29 M/uL (4.70-6.10); White Blood Count 7.57 K/ul (4.8-10.8)
[2024-10-01 06:33] LABS: Albumin Globulin Ratio 1.1 (0.9-2); Albumin Level 3.5 gm/dl (3.4-5.0); BUN Creatinine Ratio 16.3 (10-20); Bilirubin,Total 0.6 mg/dl (0.2-1.0); Calcium 9.1 mg/dl (8.6-10.3); Creatinine Clr Calc Pharmacy 94.2 ml/min; Globulin 3.3 gm/dl (2.5-4.0); Potassium 4.1 mmol/L (3.5-5.1); Total Protein 6.8 gm/dl (6.0-8.3)
--- NOTE | 2024-10-01 08:09 | Orthopedic Progress Note ---
Date of Service October 01, 2024 Assessment & Plan (1) Venous stasis of lower extremity: (2) Status post total knee replacement, right: * Continue Current Treatment * Disposition: SNF * Daily treatment: Physical Therapy/ Occupational Therapy per protocol * Weight bearing status: WBAT * Maintain AZEEM stocking, elevate RLE as much as possible * Ok to shower * Continue to monitor for ABLA * Pain control * DVT prophylaxis, continue home dose Coumadin * Recommend outpt course of Cefadroxil * Office f/u as scheduled later this week for progress check and staple removal * Remainder care per primary team * Stable for discharge from ortho standpoint, further planning per primary team Subjective .Active Problems: S/p right TKA 09/[address] Lopez 79y/o male s/p right TKA 09/19. Readmitted to hospital with venostasis changes to right lower leg. Doing well overall, pain managed and improved function. Denies fever/chills, chest pain/SOB, nausea/vomiting. Otherwise no complaints. Review of Systems All systems reviewed & are unremarkable except as noted in HPI & below. Physical Exam . * General: Alert and oriented, no acute distress * Constitutional: well-developed, well-nourished. * Respiratory: Normal respiratory effort, no distress * Gastrointestinal: No tenderness to palpation, no rigidity or guarding. * Skin: No rash or lesion. * Neurologic: Grossly normal * Musculoskeletal: TKA incision CDI, no active drainage. Persistent erythema/venous stasis changes to the right lower extremity visible through Azeem stocking. Blister to anterior thompson. Patient is minimally tender to the right lower extremity. He has good range of motion of the right knee. There is no erythema of the right knee or any issues with the surgical wound. No drainage. Neurovascularly intact in the right lower extremity. Results & Data Results & Data Laboratory Results . Diagnostic Findings . PG Care Time/CCT Total # of Minutes Spent Total Time Spent with Patient: Total time spent is greater than 50% in coordination of care (as documented) at patient's floor/unit and/or counseling patient: Coding Level of Care Code 20133 Post Operative Follow-Up Diagnoses Venous stasis of lower extremity I87.8 Status post total knee replacement, right Z96.651
--- NOTE | 2024-10-01 12:15 | Infectious Disease Progress Nt ---
Date of Service October 01, 2024 Assessment & Plan (1) Cellulitis of right leg: (2) Status post total knee replacement, right: (3) Morbid obesity: Plan 79yo M with h/o obesity, asthma, lumbar radiculopathy, DVT, prediabetes, arthritis, admission 06/30-07/12 with right obstructive uropathy with pyelonephritis 2/2 E coli (tx with CTX>cefdinir for > 10d) with c/f stricture disease possible UPJ obstruction s/p right ureteral stent 07/01/24 then ureteral dilation, endopyelotomy, and stent exchange on 07/2024, right total knee arthroplasty on 09/19 with admission 09/19-09/25 for ambulatory dysfunction who presented on 09/27 with increasing pain and weakness in the right knee, noted fall at home and hit right knee on tub. On admission, he was afebrile, vss. Initial labs with WBC and Cr wnl, LFT wnl. Lactate neg. ESR 81, CRP 9.15. PCT 0.03. UA neg. XR knee negative. RLE doppler neg for DVT. He has been started on daptomycin and cefazolin for RLE cellulitis. Seen by neurology, no focal neurologic findings. ID consulted 09/28. Improving. # Right leg cellulitis # Recent right TKA # Morbid obesity - continue Keflex 500mg PO q6h - duration 7-10 days starting 09/27 Will discontinue active follow up at this time. Please do not hesitate to reconsult the Infectious Diseases service as needed. Leah Gutierrez MD [facility], Division of Infectious Diseases [facility]: [phone] Admission and Anticipated Discharge Date Admission Date: September 27, 2024 Subjective Subsequent visit was provided via telemedicine using two-way real-time interactive telecommunication between the patient and the telemedicine provider. For the duration of the visit, the provider was performing the assessment from a different facility than the patient. This includesuse of bluetooth stethoscope forauscultationperformed by the telepresenter that the telemedicine provider can hear if described in the physical exam. Ramp Attendant contact information: Please call [facility] Call Center [phone]. (Phone Number For Physician Use Only) After establishing a telemedicine visit, patient was: Patient was verified with two unique identifiers, Patient/authorized rep acknowledged consent and understanding and Gave permission to continue telehealth session Time Spent with Patient: Subsequent => 35 min Patient reports feeling better. No pain in his leg or knee. No v/d. Physical Exam Physical Exam: General: Awake, alert, no acute distress HEENT: NC/AT, EOMI, mmm Neck: supple Lungs: respirations non-labored Heart: nl peripheral perfusion Abdomen: soft, NT/ND Ext: RLE with chronic skin changes, some mild erythema Skin: as above Neuro: moving all extremities Results & Data Vital Signs (Past 12 Hours) Vital Signs Temp Pulse Resp BP Pulse Ox O2 Del Method 10/01/24 07:12 36.4 C L 76 18 153/76 H 95 Room Air Laboratory Results Labs reviewed. Diagnostic Findings Imaging reviewed.
--- NOTE | 2024-10-01 13:22 | Hospitalist Progress Note ---
"Date of Service October 01, 2024 Assessment & Plan (1) Ambulatory dysfunction: (2) History of arthroplasty of right knee: (3) Cellulitis of right lower leg: (4) Morbid obesity with BMI of 40.0-44.9, adult: Plan This is a 79-year-old male who presented on 09/27 for ambulatory dysfunction. Recent R TKA on 09/[address] Lopez. Originally discharged home on home health on 09/25, but patient developed worsening of pain and ambulatory dysfunction. Cellulitis appears to be improving on antibiotics. Patient is pending SNF placement #Recent history of right TKA | ambulatory dysfunction - Ortho consulted, doing well. Agree with current treatment. Pain regimen as follows: Acetaminophen 1000 mg TID Gabapentin 300 mg TID Oxycodone 5-10 mg p.o. tablets PRN for breakthrough pain Continue bowel regimen #Right lower extremity cellulitis No leukocytosis, afebrile, vital signs stable CRP/ESR elevated. Clinically with right lower extremity cellulitis on admission Knee flexion/extension 10/01 are intact without pain. Cellulitic changes are receding from both marked surgical lines and he has been afebrile. Low suspicion for joint involvement. Suspect right lower extremity cellulitis responding appropriately to antibiotics. Transition from cefazolin to Keflex. Last day abx if doing well 10/07 Patient denies prior history of MRSA infection; no purulent drainage Blood cultures have been negative change IV antibiotics to oral antibiotics p.o. ID was consulted on admission. Patient does not have a persistent leukocytosis, CRP very slowly downtrending. Agree w/ abx and tx course 7-10 days. Appreciate recommendations #History of DVT/pulmonary embolism No evidence of DVT on RLE Doppler on arrival Continue current warfarin regimen INR 1.7 on arrival INR judy slightly supratherapeutic. Lovenox was discontinued. Warfarin continued. Repeat INR pending #Depression/anxiety Continue duloxetine, aripiprazole #GERD Continue PPI Admission and Anticipated Discharge Date Admission Date: September 27, 2024 Subjective Seen at bedside today Reports that pain and swelling continues to improve in his right leg. Is pleased to see the redness is receding from marked lines still getting better Feels that he is still weaker than his baseline and would still like to pursue placement which is pending. Otherwise pleased with his care and progression Denies fever chills sweats overnight. No uncontrolled pain at time of morning visit Physical Exam Physical Exam: General: A&Ox3. NAD. Cooperative. HEENT: Atraumatic, normocephalic. Vision and hearing grossly intact Pulm: CTAB A&P. -wheezes, -rales, -rhonchi. Symmetrical chest rise. No increased work of breathing. No respiratory distress. Cardiac: RRR, -mrg. Radial pulses intact and symmetrical. Extremities: Right lower extremity with erythema receding, nearly resolved from initial marked surgical line and receding by about 2 cm from subsequent marked line. No purulence/discharge. Minimal warmth. Nontender to soft touch. Ankle dorsiflexion/plantarflexion 5/5 bilaterally Results & Data Results & Data Vital Signs (Past 12 Hours) Vital Signs Temp Pulse Resp BP Pulse Ox O2 Del Method 10/01/24 07:12 36.4 C L 76 18 153/76 H 95 Room Air PG Care Time/CCT Total # of Minutes Spent Total Time Spent with Patient: Total time spent is greater than 50% in coordination of care (as documented) at patient's floor/unit and/or counseling patient: Coding Level of Care Code 03014 SUB INP/OBS CARE 3/50MIN Diagnoses Ambulatory dysfunction R26.2 History of arthroplasty of right knee Z96.651 Cellulitis of right lower leg L03.115 Morbid obesity with BMI of 40.0-44.9, adult E66.01; Z68.41"
[2024-10-02 07:38] LABS: Hematocrit (blood only) 31.9 % (42.0-52.0); Hemoglobin 9.9 g/dl (14.0-18.0); Mean Corpuscular Hemoglobin 26.5 pg (25.0-34.0); Mean Corpuscular Volume 85.3 fL (80.0-100.0); Mean Platelet Volume 9.6 fL (9.4-12.4); Platelet Count 275 K/uL (130-400); RDW Coefficient of Variation 15.2 % (11.5-14.5); RDW Standard Deviation 46.8 fL (36.4-46.3); Red Blood Count 3.74 M/uL (4.70-6.10); White Blood Count 7.07 K/ul (4.8-10.8)
[2024-10-02 07:45] LABS: INR 3.1 (0.9-1.1); Prothrombin Time 30.3 Seconds (9.0-12.0)
[2024-10-02 07:52] LABS: Albumin Level 3.2 gm/dl (3.4-5.0); Bilirubin,Total 0.5 mg/dl (0.2-1.0); Calcium 8.9 mg/dl (8.6-10.3)
[2024-10-02 07:58] LABS: Albumin Globulin Ratio 1.1 (0.9-2); BUN Creatinine Ratio 19.1 (10-20); Creatinine Clr Calc Pharmacy 103.8 ml/min; Globulin 2.8 gm/dl (2.5-4.0)
--- NOTE | 2024-10-02 11:30 | Orthopedic Progress Note ---
Date of Service October 02, 2024 Assessment & Plan (1) Status post total knee replacement, right: Plan: 79-year-old gentleman postop from a right knee replacement readmitted for ambulatory dysfunction and potential cellulitis. He is doing much better since he is elevating his leg. Knee is looking quite a bit better. I do not think he is got any infection and is just a exacerbation of his venous stasis changes. In any case I think we are obligated to treat him to some degree with some antibiotics at this point and I think he can be converted to p.o. Keflex or cefoxitin at any time. Plan: 1. DVT prophylaxis including Thiede teds, SCDs, and he is back on his Coumadin at a therapeutic level #2 PT/OT. Weight-bear as taught. Right total knee protocol. 3. Pain control. Doing okay with current pain regimen. 4. Antibiotics. I am fine with him going on oral antibiotics for 7 to 10 days. Either Keflex 500 mg 4 times a day for 7 to 10 days versus cefoxitin 0 500 mg twice a day for 7 to 10 days. 5. Disposition. He is orthopedically okay for discharge anytime can be discharged to a residential facility if medically stable. (2) Venous stasis of lower extremity: (3) Morbid obesity with BMI of 40.0-44.9, adult: Admission and Anticipated Discharge Date Admission Date: September 27, 2024 Subjective 79-year-old gentleman status post a right total knee replacement readmitted for ambulatory dysfunction, pain and cellulitis. He is getting better. The legs look markedly better since he is elevating. That he has been on antibiotics. No fevers. He is gotten a bit depressed as he has been kind of stuck in the hospital. Now waiting for residential facility. Physical Exam Physical Exam: Physical examination was a pleasant elderly male. Is lying in bed looks pretty comfortable this morning. Examination of the right knee incision reveals it to be healing nicely. There is no drainage. Swelling significantly improved. The entire right lower extremity swelling is improved. The rubor and redness has receded some. He can do a straight leg raise. He is neurologically intact Results & Data Vital Signs (Past 12 Hours) Vital Signs Temp Pulse Resp BP Pulse Ox O2 Del Method 10/02/24 09:00 Room Air 10/02/24 07:43 36.4 C L 80 18 153/72 H 96 Room Air
--- NOTE | 2024-10-02 13:09 | Hospitalist Progress Note ---
"Date of Service October 02, 2024 Assessment & Plan (1) Ambulatory dysfunction: (2) History of arthroplasty of right knee: (3) Cellulitis of right lower leg: (4) Morbid obesity with BMI of 40.0-44.9, adult: Plan This is a 79-year-old male who presented on 09/27 for ambulatory dysfunction. Recent R TKA on 09/[address] Lopez. Originally discharged home on home health on 09/25, but patient developed worsening of pain and ambulatory dysfunction. Cellulitis appears to be improving on antibiotics. Patient is pending SNF placement #Right lower extremity cellulitis much improved - Transition from cefazolin to Keflex. Last day abx if doing well 10/07 -Blood cultures have been negative change IV antibiotics to oral antibiotics p.o. ID was consulted on admission. Patient does not have a persistent leukocytosis, CRP very slowly downtrending. Agree w/ abx and tx course 7-10 days. Appreciate recommendations #Recent history of right TKA | ambulatory dysfunction - Ortho consulted, doing well. Agree with current treatment. Pain regimen as follows: Acetaminophen 1000 mg TID Gabapentin 300 mg TID Oxycodone 5-10 mg p.o. tablets PRN for breakthrough pain Continue bowel regimen #History of DVT/pulmonary embolism No evidence of DVT on RLE Doppler on arrival Continue current warfarin regimen INR 1.7 on arrival INR judy slightly supratherapeutic. Lovenox was discontinued. Warfarin continued. Repeat INR pending #Depression/anxiety Continue duloxetine, aripiprazole #GERD Continue PPI Disposition: awaiting placement, hopefully tomorrow Admission and Anticipated Discharge Date Admission Date: September 27, 2024 Subjective patient seen and examined, says he feels a little sad Review of Systems Review of Systems: All systems reviewed are negative, apart from the ones contained in the history. Physical Exam Physical Exam: The patient is awake, alert and oriented 3, well developed and well nourished, normocephalic and atraumatic, lying in bed and in no acute distress. HEENT--PERRL, EOMI, mucous membranes and oropharynx mildly dry Neck--supple. No JVD. No bruits. Thyroid normal, trachea midline, no adenopathy. Heart--normal S1 and S2. No murmurs, rubs or gallops. Lungs--clear bilaterally, no respiratory distress, no accessory muscle use. Abdomen--normal bowel sounds and soft. Extremities--no cyanosis or clubbing. No edema. Dermatologic--normal skin turgor, normal color, no abnormal lymph nodes, no rash. Neurologic--cranial nerves II through XII grossly intact. Rheumatologic--normal range of motion. Psychiatric--normal affect. Results & Data Results & Data Vital Signs (Past 12 Hours) Vital Signs Temp Pulse Resp BP Pulse Ox O2 Del Method 10/02/24 09:00 Room Air 10/02/24 07:43 97.5 F L 80 18 153/72 H 96 Room Air PG Care Time/CCT Total # of Minutes Spent Total Time Spent with Patient: Total time spent is greater than 50% in coordination of care (as documented) at patient's floor/unit and/or counseling patient: Coding Level of Care Code 67644 SUB INP/OBS CARE 2/35MIN Diagnoses Ambulatory dysfunction R26.2 History of arthroplasty of right knee Z96.651 Cellulitis of right lower leg L03.115 Morbid obesity with BMI of 40.0-44.9, adult E66.01; Z68.41 Time Spent (min) 35"
[2024-10-03 06:37] LABS: Hematocrit (blood only) 31.7 % (42.0-52.0); Hemoglobin 9.9 g/dl (14.0-18.0); Mean Corpuscular Hemoglobin 26.8 pg (25.0-34.0); Mean Corpuscular Hgb Conc 31.2 g/dL (32.0-36.0); Mean Corpuscular Volume 85.7 fL (80.0-100.0); Mean Platelet Volume 9.2 fL (9.4-12.4); Platelet Count 258 K/uL (130-400); RDW Coefficient of Variation 15.2 % (11.5-14.5); RDW Standard Deviation 47.7 fL (36.4-46.3); White Blood Count 6.81 K/ul (4.8-10.8)
[2024-10-03 06:58] LABS: INR 3.2 (0.9-1.1); Prothrombin Time 31.3 Seconds (9.0-12.0)
[2024-10-03 07:09] LABS: Albumin Globulin Ratio 1.2 (0.9-2); Albumin Level 3.2 gm/dl (3.4-5.0); BUN Creatinine Ratio 16.2 (10-20); Bilirubin,Total 0.4 mg/dl (0.2-1.0); Calcium 8.8 mg/dl (8.6-10.3); Creatinine Clr Calc Pharmacy 93.3 ml/min; Globulin 2.7 gm/dl (2.5-4.0); Potassium 4.2 mmol/L (3.5-5.1); Total Protein 5.9 gm/dl (6.0-8.3)
--- NOTE | 2024-10-03 10:15 | Orthopedic Progress Note ---
Date of Service October 03, 2024 Assessment & Plan (1) Status post total knee replacement, right: Plan: 79-year-old gentleman now 2 weeks out from a total knee replacement surgery admitted with ambulatory dysfunction along with some swelling and concern for cellulitis. He is slowly improving. Still struggling to get around safely. Failed discharge to home by himself once already. Plan: 1. DVT prophylaxis including Thiede nnamdis, SCDs, back on his Coumadin dose. 2. PT/OT. Weight-bear as taught. Right total knee protocol. 3 pain control. Doing okay with current pain regimen. 4. Disposition. Plan is to discharge to a long-term facility. Just wa iting for approval and acceptance. We will treat him with a short course of oral antibiotics. Admission and Anticipated Discharge Date Admission Date: September 27, 2024 Subjective 79-year-old gent with multiple medical comorbidities now 2 weeks out from a right total knee replacement. He was readmitted for ambulatory dysfunction and concerns for cellulitis. He is doing a bit better each day. Pain seems to be controlled. Still struggling to get around safely. Swelling and pain seem to be improving. Physical Exam Physical Exam: Physical yury is a pleasant elderly male. He is lying in bed. Looks pretty comfortable. Examination of the right leg reveals incision healed nicely. Some mild swelling around his knee. Is got more diffuse swelling in his leg which is improved. He can dorsiflex and plantarflex his foot appropriately. He is neurologically intact. Results & Data Vital Signs (Past 12 Hours) Vital Signs Temp Pulse Resp BP Pulse Ox O2 Del Method 10/03/24 07:13 36.5 C 71 18 122/71 97 Room Air
--- NOTE | 2024-10-03 11:16 | Hospitalist Progress Note ---
"Date of Service October 03, 2024 Assessment & Plan (1) Ambulatory dysfunction: (2) History of arthroplasty of right knee: (3) Cellulitis of right lower leg: (4) Morbid obesity with BMI of 40.0-44.9, adult: Plan This is a 79-year-old male who presented on 09/27 for ambulatory dysfunction. Recent R TKA on 09/[address] Lopez. Originally discharged home on home health on 09/25, but patient developed worsening of pain and ambulatory dysfunction. Cellulitis appears to be improving on antibiotics. #Right lower extremity cellulitis much improved - Transition from cefazolin to Keflex. Last day abx if doing well 10/07 -Blood cultures have been negative #Recent history of right TKA | ambulatory dysfunction - Ortho consulted, doing well. Agree with current treatment. Pain regimen as follows: Acetaminophen 1000 mg TID Gabapentin 300 mg TID Oxycodone 5-10 mg p.o. tablets PRN for breakthrough pain Continue bowel regimen #History of DVT/pulmonary embolism No evidence of DVT on RLE Doppler on arrival Continue current warfarin regimen #Depression/anxiety Continue duloxetine, aripiprazole #GERD Continue PPI Disposition: Insurance denied authorization for SNf, will work towards home with home health Admission and Anticipated Discharge Date Admission Date: September 27, 2024 Subjective patient seen and examined, denies any new complaints, sitting up in the chair Review of Systems Review of Systems: All systems reviewed are negative, apart from the ones contained in the history. Physical Exam Physical Exam: The patient is awake, alert and oriented 3, well developed and well nourished, normocephalic and atraumatic, lying in bed and in no acute distress. HEENT--PERRL, EOMI, mucous membranes and oropharynx mildly dry Neck--supple. No JVD. No bruits. Thyroid normal, trachea midline, no adenopa thy. Heart--normal S1 and S2. No murmurs, rubs or gallops. Lungs--clear bilaterally, no respiratory distress, no accessory muscle use. Abdomen--normal bowel sounds and soft. Extremities--no cyanosis or clubbing. No edema. Dermatologic--normal skin turgor, normal color, no abnormal lymph nodes, no rash. Neurologic--cranial nerves II through XII grossly intact. Rheumatologic--normal range of motion. Psychiatric--normal affect. Results & Data Results & Data Vital Signs (Past 12 Hours) Vital Signs Temp Pulse Resp BP Pulse Ox O2 Del Method 10/03/24 07:13 97.7 F 71 18 122/71 97 Room Air PG Care Time/CCT Total # of Minutes Spent Total Time Spent with Patient: Total time spent is greater than 50% in coordination of care (as documented) at patient's floor/unit and/or counseling patient: Coding Level of Care Code 13611 SUB INP/OBS CARE 2/35MIN Diagnoses Ambulatory dysfunction R26.2 History of arthroplasty of right knee Z96.651 Cellulitis of right lower leg L03.115 Morbid obesity with BMI of 40.0-44.9, adult E66.01; Z68.41 Time Spent (min) 35"
[2024-10-04 06:31] LABS: Hematocrit (blood only) 34.1 % (42.0-52.0); Hemoglobin 10.4 g/dl (14.0-18.0); Mean Corpuscular Hgb Conc 30.5 g/dL (32.0-36.0); Mean Corpuscular Volume 85.3 fL (80.0-100.0); Platelet Count 264 K/uL (130-400); RDW Coefficient of Variation 15.1 % (11.5-14.5); RDW Standard Deviation 46.2 fL (36.4-46.3); White Blood Count 7.22 K/ul (4.8-10.8)
[2024-10-04 06:57] LABS: INR 3.4 (0.9-1.1); Prothrombin Time 32.9 Seconds (9.0-12.0)
--- NOTE | 2024-10-04 07:43 | Orthopedic Progress Note ---
Date of Service October 04, 2024 Assessment & Plan (1) Status post total knee replacement, right: Postop day 15 from a right total knee arthroplasty 1. DVT prophylaxis including thigh teds, SCDs, back on his Coumadin dose. 2. PT/OT. Weight-bear as tolerated right total knee protocol. 3. Continue current pain control plan 5. [place] were removed at today's progress check. Steri-Strips placed. 4. Disposition: Orthopedically stable for discharge. Waiting on placement. Did discuss with him that Dr. Lopez would like to see him back in 4 weeks for 6-week postop check. No need for 2-week x-rays today as he had x-rays on 09/27/2024. Subjective Operation Date: 09/19/24 12:30 Actual Procedures p Right Total Knee Arthroplasty(Right) - Keanu Lopez MD Patient is postop day 15 from a right total knee arthroplasty by Dr. Lopez. He has been treated for right lower extremity cellulitis in this current inpatient stay. He is currently waiting on placement. No new issues with the right knee. No other questions or concerns today. Review of Systems All systems reviewed & are unremarkable except as noted in HPI & below. Physical Exam General: Alert and oriented. No acute distress. Right lower extremity: Wound check satisfactory. No erythema, drainage or dehiscence. Jewell removed at today's visit and Steri-Strips have been placed. Wound check remains satisfactory. Neurovascularly intact in the right lower extremity. Results & Data Results & Data Laboratory Results . Diagnostic Findings . PG Care Time/CCT Total # of Minutes Spent Total Time Spent with Patient: Total time spent is greater than 50% in coordination of care (as documented) at patient's floor/unit and/or counseling patient: Coding Level of Care Code 66535 Post Operative Follow-Up Diagnoses Status post total knee replacement, right Z96.651
--- NOTE | 2024-10-04 11:20 | Ultrasound Report ---
US venous doppler LE RT HISTORY: 79 years-old Male right leg swelling acute pain and swelling of the right lower leg COMPARISON: 09/27/2024 TECHNIQUE: Multiple real-time sonographic images of the right lower extremity deep venous structures were obtained assessing grayscale appearance, color and spectral flow. FINDINGS: Normal flow, compressibility, phasicity and augmentation. Subcutaneous edema limits the study. IMPRESSION: No sonographic evidence of deep venous thrombosis. ACT 112: Negative or not required by law. The above report was generated using voice recognition software. It may contain grammatical, syntax o r spelling errors. Electronically signed by: Steven Thomas M.D. 10/04/2024 11:19 AM
--- NOTE | 2024-10-04 21:41 | Hospitalist Progress Note ---
"Date of Service October 04, 2024 Assessment & Plan (1) Ambulatory dysfunction: (2) History of arthroplasty of right knee: (3) Cellulitis of right lower leg: (4) Morbid obesity with BMI of 40.0-44.9, adult: Plan This is a 79-year-old male who presented on 09/27 for ambulatory dysfunction. Recent R TKA on 09/[address] Lopez. Originally discharged home on home health on 09/25, but patient developed worsening of pain and ambulatory dysfunction. Cellulitis appears to be improving on antibiotics. #Right lower extremity cellulitis much improved - Transition from cefazolin to Keflex. Last day abx if doing well 10/07 -Blood cultures have been negative -patient is clinically doing well. #Recent history of right TKA | ambulatory dysfunction - Ortho consulted, doing well. Agree with current treatment. Pain regimen as follows: Acetaminophen 1000 mg TID Gabapentin 300 mg TID Oxycodone 5-10 mg p.o. tablets PRN for breakthrough pain Continue bowel regimen #History of DVT/pulmonary embolism No evidence of DVT on RLE Doppler on arrival Continue current warfarin regimen will repeat us of RLE: this was negative for DVT INR is also therapeutic #Depression/anxiety Continue duloxetine, aripiprazole #GERD Continue PPI Disposition: Insurance denied authorization for SNf, will work towards home with home health discussed with case management Admission and Anticipated Discharge Date Admission Date: September 27, 2024 Subjective Patient reports no new symptoms. Earlier in the day complaining of right leg pain Physical Exam Physical Exam: General: Awake, alert, no acute distress HEENT: NC/AT, EOMI, mmm Neck: supple Lungs: respirations non-labored Heart: nl peripheral perfusion Abdomen: soft, NT/ND Ext: RLE edema with erythema/warmth/tenderness in lower leg, anterior thompson blister, no drainage, no erythema of foot, +swelling; right knee with well healing wound, no erythema or tenderness Skin: as above Neuro: moving all extremities Results & Data Results & Data Vital Signs (Past 12 Hours) Vital Signs Temp Pulse Resp BP BP Pulse Ox O2 Del Method 10/04/24 20:20 84 158/78 H 10/04/24 19:14 36.4 C L 100 H 20 165/96 H 95 Room Air 10/04/24 15:59 36.5 C 71 18 152/72 H 99 Room Air PG Care Time/CCT Total # of Minutes Spent Total Time Spent with Patient: Total time spent is greater than 50% in coordination of care (as documented) at patient's floor/unit and/or counseling patient: Coding Level of Care Code 71710 SUB INP/OBS CARE 3/50MIN Diagnoses Ambulatory dysfunction R26.2 History of arthroplasty of right knee Z96.651 Cellulitis of right lower leg L03.115 Morbid obesity with BMI of 40.0-44.9, adult E66.01; Z68.41"
[2024-10-05 07:13] LABS: INR 3.3 (0.9-1.1); Prothrombin Time 31.9 Seconds (9.0-12.0)
--- NOTE | 2024-10-05 07:19 | Orthopedic Progress Note ---
Date of Service October 05, 2024 Assessment & Plan (1) Status post total knee replacement, right: Plan: 79-year-old gentleman admitted with ambulatory dysfunction and pain and swelling after total knee replacement. He is making clinical improvements but the lives by himself and could really benefit for some help for some time. He has been denied [facility] facility and he is not permanent currently in the appeal process. His pain is improving. Swelling is improving. Plan: At this time we will just continue current management. He is on Coumadin for DVT prophylaxis. Continue p.o. antibiotics for 7 to 10 days. Jewell are out. I just need to see him back in about a month. Any orthopedic questions can be directly [phone] (2) Venous stasis of lower extremity: (3) Morbid obesity with BMI of 40.0-44.9, adult: Admission and Anticipated Discharge Date Admission Date: September 27, 2024 Subjective 79-year-old gentleman now over 2 weeks out from a right knee replacement readmitted with ambulatory dysfunction and pain and swelling. He continues to get better slowly daily. He is currently in the appeal process to go to a [facility] facility. Swelling is improving. Physical Exam Physical Exam: Physical nation is a pleasant elderly male. I did wake him this morning. Examination of the right leg reveals the incision site to be well-approximated. Some mild swelling. He can dorsiflex and plantarflex his foot appropriately. The redness distally is improving. Swelling is improving. Having said that he is not wearing his stockings this morning Results & Data Vital Signs (Past 12 Hours) Vital Signs Pulse BP 10/04/ 20:20 84 158/78 H
[2024-10-05 08:11] VITALS: RESP 18; TEMP 97.7; O2SAT 92
--- NOTE | 2024-10-05 11:37 | Discharge Summary ---
Discharge Summary Date of Service October 05, 2024 Principal Dx & Hospital Course #1 = Principal Diagnosis (1) Ambulatory dysfunction: (2) History of arthroplasty of right knee: (3) Cellulitis of right lower leg: (4) Morbid obesity with BMI of 40.0-44.9, adult: Plan This is a 79-year-old male who presented on 09/27 for ambulatory dysfunction. Recent R TKA on 09/[address] Lopez. Originally discharged home on home health on 09/25, but patient developed worsening of pain and ambulatory dysfunction. Cellulitis appears to be improving on antibiotics. #Right lower extremity cellulitis much improved - Transition from cefazolin to Keflex. Last day abx will be 10/07 -Blood cultures have been negative -patient is clinically doing well. -Discharged with instructions to use rolling walker #Recent history of right TKA | ambulatory dysfunction - Ortho consulted, doing well. Agree with current treatment. Pain regimen as follows: Acetaminophen 1000 mg TID Gabapentin 300 mg TID Oxycodone 5-10 mg p.o. tablets PRN for breakthrough pain Continue bowel regimen #History of DVT/pulmonary embolism No evidence of DVT on RLE Doppler on arrival Continue current warfarin regimen will repeat us of RLE: this was negative for DVT INR is also therapeutic #Depression/anxiety Continue duloxetine, aripiprazole #GERD Continue PPI Disposition: Insurance denied authorization for SNf, will be discharged with home health. Patient agreeable and did not deny discharge. Admission HPI Per Admitting Provider Jimbo is a 79-year-old male with PMH of arthritis, chronic diarrhea, and lumbar radiculopathy. Recent right total knee arthroplasty with Dr. Lopez on 09/19, and subsequently hospitalized from 09/19 - 09/25 for ambulatory dysfunction. Initially, the plan was for patient to go to rehab upon discharge, but due to lack of beds at rehab, his SNF authorization lapsed. He then began to improve on his own, and was discharged to home with home health. Patient returned on 09/27 due to ambulatory dysfunction and increased pain/weakness in the right knee at home. He feels unsafe to return home at this time, due to his inability to get around. He also reports that he had a fall from seated position this morning; he was on the toilet and the toilet riser pushed him to the right. He fell and struck his right knee on the side of his tub. No LOC. No head strike. He rates the pain in his right knee as an 8/10 at present. Pain does radiate down his right thompson, and he will occasionally have sharp stabbing pain inside of his knee. He denies any numbness or tingling. He has been taking oxycodone twice daily at home, which he reports helps. Last oxycodone was taken this morning at 7:30 AM. Patient took all of his regular morning medicine today, as well as his antibiotic which was prescribed on discharge. Last took warfarin 5 mg last night on 09/26. He manages his own medicine at home. Home health physical therapy came to evaluate him today, and agreed that he should return to the hospital. Patient's lower right extremity is also erythematous, swollen, and hot to touch. He does have a history of cellulitis. He denies any purulent drainage or bleeding from the surgical site. No PMH of MRSA infections. He ambulates with a rollator/walker at baseline. He denies any smoking, tobacco use, or recent alcohol use. In regard to his penicillin allergy, he is not quite sure what happens when he takes penicillins, but believes he might of developed a rash at one point. Patient is hypertensive at 141/84 at time of admission; vitals otherwise stable. ED course: Cefazolin 2000 mg IV ROS: Patient endorses right knee pain/swelling, lower back pain (from laying around the past week; chronic), R yazdanism headache (ongoing), and nausea. Patient denies fever, chills, night-sweats, dizziness, lightheadedness, chest pain, SOB, chest palpitations, pleuritic CP, cough, abdominal pain, vomiting, diarrhea, burning with urination, blood in the urine/stool, or numbness/tingling in the right leg. Discharge Exam General: Awake, alert, no acute distress HEENT: NC/AT, EOMI, mmm Neck: supple Lungs: respirations non-labored Heart: nl peripheral perfusion Abdomen: soft, NT/ND Ext: RLE edema with erythema/warmth/tenderness in lower leg, anterior thompson blister, no drainage, no erythema of foot, +swelling; right knee with well healing wound, no erythema or tenderness Skin: as above Neuro: moving all extremities Discharge Plan Discharge Items Patient Disposition: Home - Home Health Services Reason For Visit: AMBULATORY DYSFUNCTION S/P R TKA Discharge Diagnosis: Right Knee REplacement Chronic Vemous statsis changes Condition on Discharge: Fair Activity: Per Instructions section Non-emergency contact: Surgeon Call non-emergency contact if: you have any medication questions Follow-up/Referrals: Mary Santos PA-C [Physician Chief Scientist] - 10/09/24 2:30 pm Keanu Lopez MD [Physician] - (Follow up in 1 month) Henry Prieto DO [Primary Care Provider] - Diet: Regular Addtl Attending Provider Instructions: ACTIVITY RECOMMENDATIONS: Diet: * You may resume previous diet. Physical Therapy: * You will go to physical therapy three times each week for four to six weeks after your surgery in order to regain your knee range of motion and to retrain your knee to work properly. * It is just as important to make sure you are getting your knee perfectly straight as it is to regain your knee bend. * Taking a pain pill an hour before therapy can help you have a more productive and comfortable therapy session. Home Exercise: * You were shown a series of exercises (heel props, heel slides, etc.) in the hospital. Do these exercises three to four times each day including the exercises you were shown in physical therapy. Walking: * Get up and walk several times each day. For the first four weeks, try not to stand or walk for more than one hour at a time. If you do stand or walk for more than one hour, you will not hurt anything, but your knee and leg will likely swell. * As you feel comfortable, you may change from the walker or crutches to a cane and then to independent walking. MEDICATIONS: New Medicine: * You will likely be taking one or more of these medications: 1. Oxycodone - A quick and shorter-acting pain medication. Take one to two tablets every six hours to lessen your pain. 2. Coumadin - Thins your blood to lessen the chance of forming a blood clot. * The most common side effects of pain medicine and iron are nausea and constipation. If nausea or constipation is too much of a problem or if you have any questions about your new medicines or doses, call [facility] at . We will try to help you manage these issues. "VERY IMPORTANT TO READ AND REVIEW" Pain: * The immediate post-operative period after knee replacement surgery is often quite painful. * You are given a prescription for pain medicine. You should take it, as directed, when you need it, especially before physical therapy and before going to bed. Pain that interferes with sleep is very common and can last several months. * You will likely need pain medicine for the first four to six weeks. It will not stop all of the pain. The pain will lessen and as you feel better, you may change to milder pain medicine such as Tylenol. * The most common side effects of pain medicine are nausea and constipation, so don't take more than you need. SPECIAL CARE INSTRUCTIONS: TEDs/Elastic Stockings: * The white elastic stockings help limit swelling and prevent blood clots from forming in your legs. The more you wear them, the more they work. * Wear them for six weeks after knee replacement surgery and four weeks after partial knee replacement. Incision Site Care: * Remove dressing postoperative day 2 and then shower. Keep direct shower pressure off the incision site. * After showering, cover joelle with dry gauze and change daily or more frequently if the dressing is getting saturated with drainage. * Use the DESMOND stockings to hold dressing in place. DO NOT apply tape on the skin. * May completely stop using bandage if wound is dry and no drainage * Joelle are removed between 2 and 3 weeks post-op. If your follow-up appointment is made before 2 weeks, please have your appointment re- scheduled. It is too early to remove the joelle. Prevention of Infection: * Take antibiotics one hour before any dental cleaning, dental work, urological procedure, gastrointestinal procedure or any invasive surgery in order to prevent your new joint from getting infected. * You may get the antibiotics from the doctor performing the procedure or you may call our office at [phone] before and we will call in a prescription to the pharmacy of your choice. Things to Watch For: * Drainage from the incision site that occurs more than one week after your surgery. * Severely increased knee/leg pain or swelling. * Increased redness at the incision site. * Fever above 102 degrees Fahrenheit. * Unusual chest pain or shortness of breath. * Unusual pain or burning with urination. Call [facility] at [phone] with any of the above problems or if you have any questions about your medicines or recovery. FOLLOW UP VISIT: Make an appointment to see your doctor for approximately 1 month after discharge for a progress check and staple removal by calling the office at [phone]. Addtl Robotics Testing Technician Provider Instructions: Recommend followup with PCP in 1-2 weeks. Pending Studies at Discharge: No Stand-Alone Forms: My [facility], Smoking Cessation Medications and DC Order Prescriptions: New cephalexin 500 mg Capsule 500 mg PO QID Qty: 11 0RF Rx Instructions: ON DISCHARGE GIVEN RX FOR 11 CAPSULES. 6:00, 12:00, 17:00, 22:00 Continued warfarin 5 mg tablet 5 - 7.5 mg PO UD Rx Instructions: Take 7.5mg on Wednesdays and 5mg x 6 days -- Per [facility] [id number] gabapentin 300 mg capsule 300 mg PO TID Qty: 90 5RF aripiprazole [Abilify] 5 mg tablet 5 mg PO QAM Qty: 90 1RF Rx Instructions: for depression alfuzosin 10 mg tablet extended release 24 hr 10 mg PO QPM Qty: 90 3RF Rx Instructions: administer after the same meal each day oxycodone 5 mg tablet 5 - 10 mg PO Q6 PRN (Reason: pain) Qty: 40 0RF Rx Instructions: Take as needed for pain ondansetron 4 mg tablet,disintegrating 4 mg PO Q8 PRN (Reason: nausea) Qty: 20 1RF Rx Instructions: Take as needed for nausea sennosides [Senokot] 8.6 mg tablet 8.6 mg PO BID 14 Days Qty: 28 0RF Rx Instructions: Take two times a day to prevent/treat constipation acetaminophen [Tylenol Extra Strength] 500 mg tablet 1,000 mg PO TID 30 Days Qty: 180 0RF Rx Instructions: Take 3 times per day to lessen pain. duloxetine 60 mg capsule,delayed release(DR/EC) 60 mg PO QPM Qty: 90 3RF (DME) Shower Chair Misc See Rx Instructions .Route Qty: 1 0RF Rx Instructions: As directed (DME) Ultra-Light Rollator Misc See Rx Instructions .Route Qty: 1 0RF Rx Instructions: As directed for 99months cholecalciferol (vitamin D3) 50 mcg (2,000 unit) capsule 50 mcg PO QAM cyanocobalamin (vitamin B-12) 1,000 mcg tablet 1,000 mcg PO QAM multivitamin with minerals Capsule 1 cap PO QAM Cosentyx Pen (2 Pens) 150 mg/mL pen injector 300 mg subcut UD Rx Instructions: 300 mg every 4 weeks (on Svetlana's) for maintenance as directed pantoprazole 40 mg tablet,delayed release (DR/EC) 40 mg PO QAM Discharge Orders: Discharge Order (Routine); Ordered 10/05/24 Ordered By: Reynaldo Ball/Other Patient Handouts: ED Post Op Wound Check, Infection Admission Data Admit Date/Time: 09/27/24 11:07 Attending Provider: Reynaldo Hobbs Admit Provider: Aries Greenfield Primary Care Provider: Henry Prieto Other Providers: Keanu Lopez; Aries Greenfield; [facility],Home [facility] Other Interventions: Discharge Summary Assessment (RN) Last Done: 10/05/24 12:32 Hospital Stay Data Consultations 09/27/24 10:38 Consult Orthopedic Surgery Stat 09/27/24 10:58 ED Decision to Admit Stat 09/28/24 09:28 Consult Infectious Diseases Routine Diagnostic Imagining Performed 09/27/24 10:19 US venous doppler LE RT Stat 10/04/24 09:27 US venous doppler LE RT Routine Pending Results Patient Have Any Pending Studies at Discharge: No Discharge Instructions Given to Patient (Per Discharging Provider) ACTIVITY RECOMMENDATIONS: Diet: * You may resume previous diet. Physical Therapy: * You will go to physical therapy three times each week for four to six weeks after your surgery in order to regain your knee range of motion and to retrain your knee to work properly. * It is just as important to make sure you are getting your knee perfectly straight as it is to regain your knee bend. * Taking a pain pill an hour before therapy can help you have a more productive and comfortable therapy session. Home Exercise: * You were shown a series of exercises (heel props, heel slides, etc.) in the hospital. Do these exercises three to four times each day including the exercises you were shown in physical therapy. Walking: * Get up and walk several times each day. For the first four weeks, try not to stand or walk for more than one hour at a time. If you do stand or walk for more than one hour, you will not hurt anything, but your knee and leg will likely swell. * As you feel comfortable, you may change from the walker or crutches to a cane and then to independent walking. MEDICATIONS: New Medicine: * You will likely be taking one or more of these medications: 1. Oxycodone - A quick and shorter-acting pain medication. Take one to two tablets every six hours to lessen your pain. 2. Coumadin - Thins your blood to lessen the chance of forming a blood clot. * The most common side effects of pain medicine and iron are nausea and constipation. If nausea or constipation is too much of a problem or if you have any questions about your new medicines or doses, call [facility] at . We will try to help you manage these issues. "VERY IMPORTANT TO READ AND REVIEW" Pain: * The immediate post-operative period after knee replacement surgery is often quite painful. * You are given a prescription for pain medicine. You should take it, as directed, when you need it, especially before physical therapy and before going to bed. Pain that interferes with sleep is very common and can last several months. * You will likely need pain medicine for the first four to six weeks. It will not stop all of the pain. The pain will lessen and as you feel better, you may change to milder pain medicine such as Tylenol. * The most common side effects of pain medicine are nausea and constipation, so don't take more than you need. SPECIAL CARE INSTRUCTIONS: TEDs/Elastic Stockings: * The white elastic stockings help limit swelling and prevent blood clots from forming in your legs. The more you wear them, the more they work. * Wear them for six weeks after knee replacement surgery and four weeks after partial knee replacement. Incision Site Care: * Remove dressing postoperative day 2 and then shower. Keep direct shower pressure off the incision site. * After showering, cover joelle with dry gauze and change daily or more frequently if the dressing is getting saturated with drainage. * Use the DESMOND stockings to hold dressing in place. DO NOT apply tape on the skin. * May completely stop using bandage if wound is dry and no drainage * Joelle are removed between 2 and 3 weeks post-op. If your follow-up appointment is made before 2 weeks, please have your appointment re- scheduled. It is too early to remove the joelle. Prevention of Infection: * Take antibiotics one hour before any dental cleaning, dental work, urological procedure, gastrointestinal procedure or any invasive surgery in order to prevent your new joint from getting infected. * You may get the antibiotics from the doctor performing the procedure or you may call our office at [phone] before and we will call in a prescription to the pharmacy of your choice. Things to Watch For: * Drainage from the incision site that occurs more than one week after your surgery. * Severely increased knee/leg pain or swelling. * Increased redness at the incision site. * Fever above 102 degrees Fahrenheit. * Unusual chest pain or shortness of breath. * Unusual pain or burning with urination. Call [facility] at [phone] with any of the above problems or if you have any questions about your medicines or recovery. FOLLOW UP VISIT: Make an appointment to see your doctor for approximately 1 month after discharge for a progress check and staple removal by calling the office at [phone]. Total Time Total Time Spent Total Time Spent (In Minutes): 32 Coding Level of Care Code 73864 INP/OBS DISCH >30 MIN Diagnoses Ambulatory dysfunction R26.2 History of arthroplasty of right knee Z96.651 Cellulitis of right lower leg L03.115 Morbid obesity with BMI of 40.0-44.9, adult E66.01; Z68.41
[2024-10-05 11:55] VITALS: BP 158/78; PULSE 77
== END 2024-10-05 13:03 | disposition home health service (06) | DRG 603 ==
LOC: ED 09:57 → 3E 11:07 → SUATTDRO 11:07 → 3E 14:02

== ENCOUNTER 2024-10-05 13:56 | Inpatient (IN) ==
[2024-10-05] MEDS: HYDROmorphone INJ 0.5 MG/0.5 ML SYR IV STA (14:22)
[2024-10-05 14:23] LABS: Hematocrit (blood only) 32.9 % (42.0-52.0); Hemoglobin 10.3 g/dl (14.0-18.0); Immature Granulocytes # (auto) 0.04 K/uL (0.01-0.20); Immature Granulocytes % (auto) 0.5 %; Mean Corpuscular Hemoglobin 26.3 pg (25.0-34.0); Mean Corpuscular Volume 83.9 fL (80.0-100.0); Platelet Count 287 K/uL (130-400); RDW Standard Deviation 46.7 fL (36.4-46.3); Red Blood Count 3.92 M/uL (4.70-6.10); White Blood Count 8.04 K/ul (4.8-10.8)
[2024-10-05 14:40] LABS: Alanine Aminotransferase 9.0 U/L (7-52); Albumin Globulin Ratio 1.0 (0.9-2); Alkaline Phosphatase 92.0 U/L (34-104); Anion Gap 7.0 (3-11); Bilirubin,Total 0.5 mg/dl (0.2-1.0); Blood Urea Nitrogen 20.0 mg/dl (6-23); Calcium 9.1 mg/dl (8.6-10.3); Carbon Dioxide 28.0 mmol/L (21-32); Chloride 104.0 mmol/L (98-107); Creatinine Clr Calc Pharmacy 86.5 ml/min; Globulin 3.3 gm/dl (2.5-4.0); Glucose 133.0 mg/dl (70-99(Fasting)); Lipase 21.0 U/L (11-82); Potassium 4.3 mmol/L (3.5-5.1); Sodium 139.0 mmol/L (136-145); Total Protein 6.6 gm/dl (6.0-8.3)
[2024-10-05] MEDS: OPTIRAY 320 125ml IV ONE (14:42)
--- NOTE | 2024-10-05 14:46 | XRay Report ---
XR chest 1V portable CLINICAL HISTORY: Trauma COMPARISON STUDY: 07/12/2024 FINDINGS: Stable mild cardiomegaly without pulmonary vascular congestion. No consolidation or pleural effusion. No pneumothorax. IMPRESSION: No acute findings. ACT 112: Negative or not required by law. Electronically signed by: Usman Ward M.D. 10/05/2024 2:44 PM
--- NOTE | 2024-10-05 14:48 | CT Scan Report ---
CT head/brain wo con CLINICAL HISTORY: trauma. TECHNIQUE: Multiple axial CT images of the head were obtained without contrast. A dose lowering tech nique was utilized adhering to the principles of ALARA. CT DOSE: 1365 COMPARISON: 12/15/2023 FINDINGS: No intracranial hemorrhage seen. No mass effect, midline shift, or hydrocephalus. Stable mo derate chronic small vessel ischemic changes. There is a right periorbital soft tissue hematoma. No s kull fracture seen. Visualized paranasal sinuses and mastoid air cells are clear. IMPRESSION: No acute intracranial findings. ACT 112: Negative or not required by law. The above report was generated using voice recognition software. It may contain grammatical, syntax o r spelling errors. Electronically signed by: Usman Ward M.D. 10/05/2024 2:47 PM
--- NOTE | 2024-10-05 14:48 | CT Scan Report ---
CT cervical spine wo con CT DOSE: 1365.44 mGy.cm CLINICAL HISTORY: 79 years-old Male with Trauma. Acute neck trauma, COMPARISON: Head CT of same day TECHNIQUE: Multiple axial CT images of the cervical spine were obtained without contrast. A dose low ering technique was utilized adhering to the principles of ALARA. FINDINGS: Moderate to severe multilevel intervertebral disc space narrowing with moderate spondylitic spurring and facet arthrosis. There is severe right-sided facet arthrosis at C7-T1. Minimal superior end plate compression at T3 again noted. Multilevel neural foraminal narrowing. The cervical soft tissues appear unremarkable. The visualized lung apices appear clear. IMPRESSION: No acute cervical spine fracture or subluxation identified. ACT 112: Negative or not required by law. The above report was generated using voice recognition software. It may contain grammatical, syntax o r spelling errors. Electronically signed by: Steven Thomas M.D. 10/05/2024 2:47 PM
--- NOTE | 2024-10-05 14:49 | XRay Report ---
XR knee RT 1 or 2V routine CLINICAL HISTORY: knee replacement, fall COMPARISON: 09/27/2024 FINDINGS: Right knee prosthesis shows no hardware complication. The prior skin joelle have been rem lashay. No fracture or dislocation seen. IMPRESSION: No fracture seen. ACT 112: Negative or not required by law. Electronically signed by: Usman Ward M.D. 10/05/2024 2:47 PM
--- NOTE | 2024-10-05 14:49 | XRay Report ---
XR shoulder RT min 2V routine CLINICAL HISTORY: shoulder pain, fall, swelling COMPARISON: None FINDINGS: No fracture or dislocation seen. IMPRESSION: No fracture seen. ACT 112: Negative or not required by law. Electronically signed by: Usman Ward M.D. 10/05/2024 2:48 PM
[2024-10-05 14:54] LABS: INR 3.2 (0.9-1.1); Partial Thromboplastin Time 44 Seconds (21-31); Prothrombin Time 31.6 Seconds (9.0-12.0)
--- NOTE | 2024-10-05 14:59 | Orthopedic Consultation ---
Date of Service October 05, 2024 Assessment & Plan (1) Dehiscence of surgical wound: Traumatic wound dehiscence at approximately 3 weeks postop from right total knee arthroplasty * Case/imaging reviewed and discussed with Dr Lopez and Louis * Ongoing planning regarding OR exploration and closure, this evening vs tomorrow morning * Recommend continued dressing and pressure, reinforce as needed * Betadine soaked 4x4, ABD, Kerlix, LINDSEY wrap * INR 4, reversal ongoing * Maintain NPO for possible OR this evening * Ancef q8hr until OR (2) Status post total knee replacement, right: History of Present Illness Reason for Consultation: .R knee incision dehiscence Requesting Physician: . . Patient is a 79 y/o male with right knee, right shoulder pain. PMH including DVT/PE on Coumadin, HTN, sleep apnea, morbid obesity, asthma. Well-known to orthopedic service with recent TKA 09/19/[address] Lopez requiring prolonged hospitalization secondary to SNF placement, ultimately returning home with subsequent admission after a fall, and again prolonged stay with multiple denials of SNF placement. Patient was discharged to home care with his earlier today however tripped while walking into the kitchen. Presents to ED with injury to right knee, right shoulder, head contusion. Extensive wound dehiscence to the right knee incision with profuse bleeding. Also pain and soft tissue swelling to the right shoulder region.. ED workup including x-ray right knee demonstrating intact hardware with no malalignment or fracture, x-ray right shoulder demonstrates soft tissue swelling but no dislocation or fracture. CTH, CT CAP pending. Orthopedics consulted for management recommendations. At time of exam patient lying in stretcher, moderate distress secondary to pain and anxiety. Reports pain to the right knee region, right shoulder region. Denies tingling or numbness of either the right upper or lower extremity. Requires walker for ambulation. Multiple times a day made to admit patient to SNF however he has been denied insurance approval. Patient reports unsafe living conditions at his current apartment. Plan was for return to his 's apartmen t, however this is where the accident occurred. Allergies Allergy/AdvReac Type Severity Reaction Status Date / Time amoxicillin Allergy Intermediate rash Verified 10/05/24 15:07 Penicillins Allergy Intermediate rash Verified 10/05/24 15:07 Home Medications Medication Instructions Recorded Confirmed Type Shower Chair #1 ea 10/04/22 09/18/24 Rx cholecalciferol (vitamin D3) 50 50 mcg PO QAM 09/09/23 10/05/24 History mcg (2,000 unit) capsule cyanocobalamin (vitamin B-12) 1,000 mcg PO QAM 09/09/23 10/05/24 History 1,000 mcg tablet multivitamin with minerals 1 cap PO QAM 09/10/23 10/05/24 History gabapentin 300 mg capsule 300 mg PO TID #90 caps 05/30/24 10/05/24 Rx pantoprazole 40 mg tablet,delayed 40 mg PO QAM 06/28/24 10/05/24 History release walker (Ultra-Light Rollator misc) #1 ea 08/15/24 09/18/24 Rx aripiprazole 5 mg tablet (Abilify) 5 mg PO QAM #90 tabs 08/28/24 10/05/24 Rx alfuzosin 10 mg tablet,extended 10 mg PO QPM #90 tabs 09/05/24 10/05/24 Rx release 24 hr warfarin 5 mg tablet 5 - 7.5 mg PO UD 09/11/24 10/05/24 History acetaminophen 500 mg tablet 1,000 mg (2 x 500 mg) PO TID pain 09/16/24 10/05/24 Rx (Tylenol Extra Strength) 30 days #180 tabs ondansetron 4 mg disintegrating 4 mg PO Q8 PRN nausea #20 tabs 09/16/24 10/05/24 Rx tablet oxycodone 5 mg tablet 5 - 10 mg (1 - 2 x 5 mg) PO Q6 PRN 09/16/24 10/05/24 Rx pain #40 tabs sennosides 8.6 mg tablet (Senokot) 8.6 mg PO BID prevent constipation 09/16/24 10/05/24 Rx 14 days #28 tabs duloxetine 60 mg capsule,delayed 60 mg PO QPM #90 caps 09/27/24 10/05/24 Rx release secukinumab 150 mg/mL subcutaneous 300 mg subcut UD 09/27/24 10/05/24 History pen injector (Cosentyx Pen 300 mg/2 pens () cephalexin 500 mg capsule 500 mg PO QID #11 caps 10/05/24 10/05/24 Rx Past Med/Surg History Problem List Dehiscence of surgical wound [facility] (current) use of anticoagulants (Acute) Morbid obesity with BMI of 40.0-44.9, adult Venous stasis of lower extremity (Acute) Status post total knee replacement, right (Acute) Cellulitis of right leg (Acute) History of arthroplasty of right knee Ambulatory dysfunction Cellulitis of right lower leg Status post total right knee replacement (Acute) Hydronephrosis Right rotator cuff tear Bilateral primary osteoarthritis of knee Abnormal ankle brachial index (Acute) Constipation Lumbar radiculopathy, right Erectile dysfunction Increased urinary frequency Arthritis Chronic diarrhea Fatty infiltration of liver Morbid obesity (Chronic) BMI 42 Medical History Orthostatic hypotension noted by PCP 07/16/24 visit; lisinopril D/C; monitoring Morbid obesity History of blood transfusion 30 yrs ago Prediabetes diet controlled per pt Low iron hx>iron infusions in past Short-term memory loss "mild" Psoriatic arthritis Lumbar radiculopathy Physical debility uses cane/walker to ambulate Sacroiliitis Chronic venous insufficiency 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, stable per pt geographical historian current use of 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 Degenerative arthritis of knee, bilateral Depression Sleep apnea does not use device BPH loc w urin obs/LUTS Hx of deep venous thrombosis 2015; on coumadin currently GERD (gastroesophageal reflux disease) controlled, stable per pt Hx pulmonary embolism (~2015) reason for coumadin Lumbago Hx of pancreatitis Generalized osteoarthritis Hiatal hernia Scoliosis History of kidney stones History of colitis last episode more than 10 years ago Macular degeneration Lumbar spondylosis Metabolic syndrome SNHL (sensorineural hearing loss) Asthma denies any inhaler use Benign esophageal stricture hx-resolved Surgical History History of cystoscopy cysto, urethral dilation, R stent placement 07/01/24: [place]: LMA iGel 5 07/30/24: cysto, ureteral dilation, bilat. RP, laser endopyelogram, stent exchange History of anesthesia reaction August 2023>attemped robotic lap abdomen procedure aborted d/t BP dropping H/O abdominal surgery August 2023>lap abdominal procedure attempted in [facility] to correct pouch formation "BP dropped/procedure aborted" History of lithotripsy History of appendectomy History of esophagogastroduodenoscopy (EGD) (~06/2021) History of colonoscopy History of tooth extraction all teeth removed History of bilateral cataract extraction History of cardiac cath 1994? @ [facility]--no stents; no cardio. S/P tonsillectomy S/P hernia repair incisional hernia S/P gastroplasty 36 years ago>currently being seen to have this procedure corrected in a few months. S/P cholecystectomy Family History Family/Other Hearing loss Paternal cousins Mother Heart disease Hypertension Family history of reaction to anesthesia difficulty waking after surgery Other Myocardial infarction No family history of bleeding disorder Prostate cancer Denies family history of Ovarian cancer Breast cancer Colorectal cancer Social History Smoking Status: Never smoker Tobacco Type: Cigarettes Age Started Using Tobacco: 16; Age Quit Using Tobacco: 30; packs per day: 1; Cigarettes Per Day: QUIT ~45 + YRS AGO; Second Hand Exposure: No; Do You Dip or Chew Tobacco: No; Hx Alcohol Use: No Hx Substance Use: No Preferred Language: Mohawk Communication Ability: Effective Visual Impairment: Limited Hearing Ability: Use of Hearing Aid [id number] Java Developer Required: No Beliefs That Will Affect Care: None marital status: Current Living Situation: Other Current Living Situation Comment: with roommates current occupational status: retired How many Children do You have: 1 Other Information That Helps Us Care for You: No Feels Safe at Home: Yes Safety Concerns: Feels Safe At This Time Childhood Exposure to Second-Hand Smoke: Yes Diet: regular caffeine: No Dental Care, Regularly: No Physical Activity Frequency: Does not Exercise Seatbelt Use: always Sunscreen Use: Yes Assistive Devices: Denture - Upper, Denture - Lower, Glasses and Walker Review of Systems All systems reviewed & are unremarkable except as noted in HPI & below. Physical Exam * Musculoskeletal: - Right shoulder region with obvious soft tissue swelling and ecchymosis to the superior and anterior shoulder region. No open wounds appreciated. Otherwise no obvious deformity or overlying skin changes to the right upper ex tremity. Mild TTP to the anterior and lateral shoulder regions. No specific tenderness of the proximal humerus, elbow, forearm, wrist/hand. AROM shoulder flexion and abduction intact. AROM wrist and hand flexion/extension intact. Sensation intact radial/median/ulnar nerve divisions. Brisk cap refill. - Right knee incision fully dehisced from proximal to distal aspect with profuse bleeding. Otherwise no obvious deformity or overlying skin changes to the right lower extremity. Diffuse TTP throughout the anterior knee region and distal thigh. Otherwise no tenderness of the proximal thigh, lower leg, foot/ankle. ROM knee not assessed secondary to open wound. AROM foot/ankle intact. Sensation intact plantar/dorsal foot. Brisk capillary refill. Constitutional WD/WN, vitals as above no acute distress and not intoxicated appearing Respiratory normal respiratory effort; no labored breathing Cardiovascular Extremities: normal capillary refill Results & Data Results & Data Laboratory Results . 10/05/24 10/05/24 10/05/24 14:28 14:12 14:06 WBC 8.04 RBC 3.92 L Hgb 10.3 L POC Hgb 10.5 L Hct 32.9 L POC Hct 31 L MCV 83.9 MCH 26.3 MCHC 31.3 L RDW Std Deviation 46.7 H RDW Coeff of Monique 15.4 H Plt Count 287 MPV 9.2 L Immature Gran % (Auto) 0.5 Neut % (Auto) 69.4 Lymph % (Auto) 18.5 Mitchell % (Auto) 8.7 Eos % (Auto) 2.5 Baso % (Auto) 0.4 Neut # (Auto) 5.58 Lymph # (Auto) 1.49 Mitchell # (Auto) 0.70 H Eos # (Auto) 0.20 Baso # (Auto) 0.03 Immature Gran # (Auto) 0.04 PT 31.6 H POC INR 4.0 H INR 3.2 H APTT 44 H PTT Ratio 1.6 POC Sodium 138 Sodium 139 POC Potassium 4.3 Potassium 4.3 POC Chloride 103 Chloride 104 Carbon Dioxide 28 POC Total CO2 26 Anion Gap 7 POC Anion Gap 14.0 L POC BUN 17 BUN 20 Creatinine 1.08 POC Creatinine 1.2 Est Cr Clr Drug Dosing 86.5 eGFR 70.24 BUN/Creatinine Ratio 18.5 Glucose 133 H POC Glucose (other) 135 H Calcium 9.1 POC Ioniz Calcium Jae 1.15 Total Bilirubin 0.5 AST 21 ALT 9 Alkaline Phosphatase 92 Total Protein 6.6 Albumin 3.3 L Globulin 3.3 Albumin/Globulin Ratio 1.0 Lipase 21 Blood Type O Positive Antibody Screen NEGATIVE Diagnostic Findings . Chest X-Ray 10/05/24 14:04 XR chest 1V portable CLINICAL HISTORY: Trauma COMPARISON STUDY: 07/12/2024 FINDINGS: Stable mild cardiomegaly without pulmonary vascular congestion. No consolidation or pleural effusion. No pneumothorax. IMPRESSION: No acute findings. ACT 112: Negative or not required by law. Electronically signed by: Usman Ward M.D. 10/05/2024 2:44 PM Knee X-Ray 10/05/24 14:04 XR knee RT 1 or 2V routine CLINICAL HISTORY: knee replacement, fall COMPARISON: 09/27/2024 FINDINGS: Right knee prosthesis shows no hardware complication. The prior skin joelle have been removed. No fracture or dislocation seen. IMPRESSION: No fracture seen. ACT 112: Negative or not required by law. Electronically signed by: Usman Ward M.D. 10/05/2024 2:47 PM Shoulder X-Ray 10/05/24 14:04 XR shoulder RT min 2V routine CLINICAL HISTORY: shoulder pain, fall, swelling COMPARISON: None FINDINGS: No fracture or dislocation seen. IMPRESSION: No fracture seen. ACT 112: Negative or not required by law. Electronically signed by: Usman Ward M.D. 10/05/2024 2:48 PM Abdomen/Pelvis CT 10/05/24 14:[address] WITH IV CONTRAST CT DOSE: 2543 HISTORY: Trauma TECHNIQUE: Multiaxial CT images of the abdomen and pelvis were performed following the IV administration of 112 cc of Optiray, A dose lowering technique was utilized adhering to the principles of ALARA. COMPARISON STUDY: 06/30/2024 FINDINGS: Gallbladder is surgically absent. Liver, spleen, pancreas, kidneys, and adrenal glands show no evidence of acute injury. There is a stable very small subcapsular fluid collection lateral right kidney. There is minimal right hydronephrosis, improved. No left hydronephrosis. No renal calculi. No evidence of abdominal aortic aneurysm or injury. Pelvis: Prostate is mildly enlarged. Urinary bladder is nondistended. No bowel inflammation or obstruction seen. No free fluid or free air. No hematoma seen. Osseous structures: There are diffuse spinal degenerative changes. There are mild degenerative changes at the hips. No acute fracture seen at the visualized osseous structures. There are a few stable bone islands. IMPRESSION: No acute injury seen. ACT 112: Negative or not required by law. The above report was generated using voice recognition software. It may contain grammatical, syntax or spelling errors. Electronically signed by: Usman Ward M.D. 10/05/2024 3:[address] 10/05/24 14:05 CT cervical spine wo con CT DOSE: 1365.44 mGy.cm CLINICAL HISTORY: 79 years-old Male with Trauma. Acute neck trauma, COMPARISON: Head CT of same day TECHNIQUE: Multiple axial CT images of the cervical spine were obtained without contrast. A dose lowering technique was utilized adhering to the principles of ALARA. FINDINGS: Moderate to severe multilevel intervertebral disc space narrowing with moderate spondylitic spurring and facet arthrosis. There is severe right-sided facet arthrosis at C7-T1. Minimal superior end plate compression at T3 again noted. Multilevel neural foraminal narrowing. The cervical soft tissues appear unremarkable. The visualized lung apices appear clear. IMPRESSION: No acute cervical spine fracture or subluxation identified. ACT 112: Negative or not required by law. The above report was generated using voice recognition software. It may contain grammatical, syntax or spelling errors. Electronically signed by: Steven Thomas M.D. 10/05/2024 2:[address] 10/05/24 14:[address] WITH CONTRAST CT DOSE: 2543.31 mGy.cm HISTORY: Trauma TECHNIQUE: Multiaxial CT images of the chest were performed following the IV administration of 112 cc of Optiray. A dose lowering technique was utilized adhering to the principles of ALARA. COMPARISON STUDY: 09/10/2023 FINDINGS: There is no pulmonary contusion, pleural effusion, or pneumothorax. There is patchy opacity in the subcutaneous tissues anterior to the right shoulder, likely bruising. No significant hematoma seen in the region. No mediastinal hematoma or evidence of thoracic aortic injury. No pericardial effusion. There is stable mild height loss at a few mid thoracic vertebral bodies. No acute fracture seen at the visualized osseous structures. IMPRESSION: Likely bruising at the soft tissues of the anterior right shoulder. No other acute injury seen of the chest. ACT 112: Negative or not required by law. Electronically signed by: Usman Ward M.D. 10/05/2024 2:[address] 10/05/24 14:05 CT head/brain wo con CLINICAL HISTORY: trauma. TECHNIQUE: Multiple axial CT images of the head were obtained without contrast. A dose lowering technique was utilized adhering to the principles of ALARA. CT DOSE: 1365 COMPARISON: 12/15/2023 FINDINGS: No intracranial hemorrhage seen. No mass effect, midline shift, or hydrocephalus. Stable moderate chronic small vessel ischemic changes. There is a right periorbital soft tissue hematoma. No skull fracture seen. Visualized paranasal sinuses and mastoid air cells are clear. IMPRESSION: No acute intracranial findings. ACT 112: Negative or not required by law. The above report was generated using voice recognition software. It may contain grammatical, syntax or spelling errors. Electronically signed by: Usman Ward M.D. 10/05/2024 2:47 PM PG Care Time/CCT Total # of Minutes Spent Total Time Spent with Patient: Total time spent is greater than 50% in coordination of care (as documented) at patient's floor/unit and/or counseling patient: Supervising Physician Co-Signing Physician Notes The patient was independently seen and evaluated and counseled. I also discussed the patient with Antony Hanson PA-C and Dr. Lopez, his total knee surgeon. I recommended surgical irrigation, debridement, and primary closure of the dehiscence. If there is a violation of the knee capsule, we will thoroughly debride and irrigate and soak with Betadine. Will plan to do this as soon as possible tomorrow morning. N.p.o. after midnight. I reviewed the risk, benefits and alternatives in detail with the patient this evening. He wants to proceed as soon as possible. C[place] [address] IN/OBS CONSULT LVL 5,80M Patient Type Established Medical Decision Making High Complexity Diagnoses Postoperative wound dehiscence, initial encounter T81.31XA Encounter type: initial encounter Status post total knee replacement, right Z96.651 (1) Dehiscence of surgical wound Encounter type: initial encounter Qualified Code(s): T81.31XA - Disruption of external operation (surgical) wound, not elsewhere classified, initial encounter
--- NOTE | 2024-10-05 15:08 | CT Scan Report ---
ABDOMEN AND PELVIS CT WITH IV CONTRAST CT DOSE: 2543 HISTORY: Trauma TECHNIQUE: Multiaxial CT images of the abdomen and pelvis were performed following the IV administrat ion of 112 cc of Optiray, A dose lowering technique was utilized adhering to the principles of ALARA . COMPARISON STUDY: 06/30/2024 FINDINGS: Gallbladder is surgically absent. Liver, spleen, pancreas, kidneys, and adrenal glands show no evidence of acute injury. There is a stable very small subcapsular fluid collection lateral right kidney. There is minimal right hydronephrosis, improved. No left hydronephrosis. No renal calculi. N o evidence of abdominal aortic aneurysm or injury. Pelvis: Prostate is mildly enlarged. Urinary bladder is nondistended. No bowel inflammation or obstru ction seen. No free fluid or free air. No hematoma seen. Osseous structures: There are diffuse spinal degenerative changes. There are mild degenerative change s at the hips. No acute fracture seen at the visualized osseous structures. There are a few stable lilia ne islands. IMPRESSION: No acute injury seen. ACT 112: Negative or not required by law. The above report was generated using voice recognition software. It may contain grammatical, syntax o r spelling errors. Electronically signed by: Usman Ward M.D. 10/05/2024 3:05 PM
[2024-10-05] MEDS: PROTHROMBIN COMP CONC- KCENTRA 2,500 UNITS in SYRINGE 0 ML IV ONE (15:16)
[2024-10-05] MEDS: PHYTONADIONE 10 MG in DEXTROSE 5% 50 ML IV ONE (15:29)
[2024-10-05] MEDS: GELATIN SPONGE 12-7MM ONE (15:32)
--- NOTE | 2024-10-05 15:52 | Emergency Department Note ---
Impression & Plan Dehiscence of operative wound, Venous bleed, Hematoma, Acute head trauma ED Provider Note NAME: PANCHO SANDHU AGE: 79 SEX: M : 1945 ARRIVES VIA: Ambulance INFORMANT: Patient, ED PROVIDER(S): Campbell Deluna MD CHIEF COMPLAINT: Trauma HPI: This is a 79-year-old male presenting a trauma alert. Patient was discharged recently from the hospital and was at home. He had a fall at home and has significant right knee wound dehiscence. Patient had a recent knee replacement. He notes pain to his right side of his body including head, shoulder and knee. Patient is on warfarin. Otherwise he hit his head without LOC. ROS: See above HPI for pertinent positives & negatives. A total of 10 systems reviewed and were otherwise negative. PAST MEDICAL HISTORY: See Below PAST SURGICAL HISTORY: See Below FAMILY HISTORY: See Below SOCIAL HISTORY: See Below HOME MEDICATIONS: See Below ALLERGIES: See Below VITALS: See Below PHYSICAL EXAMINATION: Primary Survey Airway: Intact Breathing: Normal, breath sounds equal bilaterally Circulation: Skin warm, distal pulses 2+, capillary refill less than 2 seconds Disability Pupils: Equal and reactive to light GCS: 15, Motor Function: Moves all extremities. Sensory: No deficits Secondary Survey GEN: Well developed, chronically ill-appearing HEAD: Normal cephalic, right eyebrow ecchymosis/hematoma EYES: Pupils round reactive to light, conjunctiva clear, extraocular movements intact ENT: oropharynx clear NECK: No JVD, midline trachea, C-collar in place HEART: Regular rate and rhythm LUNGS: Clear to auscultation bilaterally. CHEST: Chest wall non-tender, no bruising/deformity ABD: soft, non-tender, no rebound or guarding, PELVIS: Stable to rock EXT: 2+ pulses, large wound dehiscence, over 20 cm, deep with extensive clot NEURO: CNII-XII grossly intact, no sensory deficits RECTAL: Good tone, no gross blood, no high riding prostate MEDICAL DECISION MAKING: This is a 79-year-old male presenting as a trauma alert. Will do CT of the head, neck, chest abdomen pelvis. Will do x-ray of the shoulder, chest and knee here. - Otherwise patient does have fairly significant bleeding/pulsatile wound to the wound dehiscence. -Patient continues to bleed extensively during my examination. After primary survey is clear, I moved onto secondary survey with this large laceration noted. I have applied direct pressure and attempted to clean the wound however there is significant pulsatile bleeding. - [id number] stitches placed by Alise Fritz NP. This control bleeding 1 area however patient has numerous other areas of bleeding. Patient had Surgifoam placed initially without success. Pressure applied by myself. - Discussed with orthopedic surgery for possible OR. - Antony SAHU,, down to the emergency department for evaluation. After patient came back from CAT scan, he packed the wound and apply pressure bandages to this area. He will discuss with attending for operative management. - CT imaging reveals no traumatic injury of the head, neck, chest abdomen or pelvis. No fractures are noted to the shoulder or knee. - As per orthopedic surgery, he will go to the OR tomorrow. -Hemoglobin 10.3. Otherwise INR is 3.2. Which electrolytes within normal limits. -In the meantime, I discussed the patient with Dr. Dasilva, possible anticoagulation reversal. Based on significant bleeding, will give vitamin K and Kcentra. - Repeat hemoglobin is stable at 10.2 - Patient admitted to the hospital service for ambulatory dysfunction, wound dehiscence and surgery tomorrow Differential diagnosis: Arterial versus venous bleed, dehiscence, knee fracture, dislocation, shoulder dislocation, intracranial hemorrhage Independent History obtained from: EMS Diagnostics interpreted by me: Cardiac Monitoring: An order was placed for continuous cardiac monitoring. The monitor shows a rate of 105 with sinus rhythm. Critical Care Note: I have personally spent 42 minutes of critical care time in the direct management of this patient. This includes bedside care, interpretation of diagnostic studies, and testing, discussion with consultants, patient, and family members, and other required patient management activities. This 42 minutes is in excess of all separately billable procedures. 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) use of anticoagulants (Acute) Morbid obesity with BMI of 40.0-44.9, adult Venous stasis of lower extremity (Acute) Status post total knee replacement, right (Acute) Cellulitis of right leg (Acute) History of arthroplasty of right knee Ambulatory dysfunction Cellulitis of right lower leg Status post total right knee replacement (Acute) Hydronephrosis Right rotator cuff tear Bilateral primary osteoarthritis of knee Abnormal ankle brachial index (Acute) Constipation Lumbar radiculopathy, right Erectile dysfunction Increased urinary frequency Arthritis Chronic diarrhea Fatty infiltration of liver Morbid obesity (Chronic) BMI 42 Medical History Orthostatic hypotension noted by PCP 07/16/24 visit; lisinopril D/C; monitoring Morbid obesity History of blood transfusion 30 yrs ago Prediabetes diet controlled per pt Low iron hx>iron infusions in past Short-term memory loss "mild" Psoriatic arthritis Lumbar radiculopathy Physical debility uses cane/walker to ambulate Sacroiliitis Chronic venous insufficiency 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, stable per pt 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 use of 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 Degenerative arthritis of knee, bilateral Depression Sleep apnea does not use device BPH loc w urin obs/LUTS Hx of deep venous thrombosis 2015; on coumadin currently GERD (gastroesophageal reflux disease) controlled, stable per pt Hx pulmonary embolism (~2015) reason for coumadin Lumbago Hx of pancreatitis Generalized osteoarthritis Hiatal hernia Scoliosis History of kidney stones History of colitis last episode more than 10 years ago Macular degeneration Lumbar spondylosis Metabolic syndrome SNHL (sensorineural hearing loss) Asthma denies any inhaler use Benign esophageal stricture hx-resolved Surgical History History of cystoscopy cysto, urethral dilation, R stent placement 07/01/24: [place]: LMA iGel 5 07/30/24: cysto, ureteral dilation, bilat. RP, laser endopyelogram, stent exchange History of anesthesia reaction August 2023>attemped robotic lap abdomen procedure aborted d/t BP dropping H/O abdominal surgery August 2023>lap abdominal procedure attempted in [facility] to correct pouch formation "BP dropped/procedure aborted" History of lithotripsy History of appendectomy History of esophagogastroduodenoscopy (EGD) (~06/2021) History of colonoscopy History of tooth extraction all teeth removed History of bilateral cataract extraction History of cardiac cath 1994? @ [facility]--no stents; no cardio. S/P tonsillectomy S/P hernia repair incisional hernia S/P gastroplasty 36 years ago>currently being seen to have this procedure corrected in a few months. S/P cholecystectomy Family History Family/Other Hearing loss Paternal cousins Mother Heart disease Hypertension Family history of reaction to anesthesia difficulty waking after surgery Other Myocardial infarction No family history of bleeding disorder Prostate cancer Denies family history of Ovarian cancer Breast cancer Colorectal cancer Social History Smoking Status: Never smoker Tobacco Type: Cigarettes Age Started Using Tobacco: 16; Age Quit Using Tobacco: 30; packs per day: 1; Cigarettes Per Day: QUIT ~45 + YRS AGO; Second Hand Exposure: No; Do You Dip or Chew Tobacco: No; Hx Alcohol Use: No Hx Substance Use: No Preferred Language: Thai Communication Ability: Effective Visual Impairment: Limited Hearing Ability: Use of Hearing Aid Community Arts Officer Required: No Beliefs That Will Affect Care: None marital status: Current Living Situation: Other Current Living Situation Comment: with roommates current occupational status: retired How many Children do You have: 1 Other Information That Helps Us Care for You: No Feels Safe at Home: Yes Safety Concerns: Feels Safe At This Time Childhood Exposure to Second-Hand Smoke: Yes Diet: regular caffeine: No Dental Care, Regularly: No Physical Activity Frequency: Does not Exercise Seatbelt Use: always Sunscreen Use: Yes Assistive Devices: Cane and Walker Allergies Allergies Allergy/AdvReac Type Severity Reaction Status Date / Time amoxicillin Allergy Intermediate rash Verified 10/05/24 15:07 Penicillins Allergy Intermediate rash Verified 10/05/24 15:07 Home Meds Home Medications Medication Instructions Recorded Confirmed cholecalciferol (vitamin D3) 50 50 mcg PO QAM 09/09/23 10/05/24 mcg (2,000 unit) capsule cyanocobalamin (vitamin B-12) 1,000 mcg PO QAM 09/09/23 10/05/24 1,000 mcg tablet multivitamin with minerals 1 cap PO QAM 09/10/23 10/05/24 pantoprazole 40 mg tablet,delayed 40 mg PO QAM 06/28/24 10/05/24 release warfarin 5 mg tablet 5 - 7.5 mg PO UD 09/11/24 10/05/24 secukinumab 150 mg/mL subcutaneous 300 mg subcut UD 09/27/24 10/05/24 pen injector (Cosentyx Pen 300 mg/2 pens () Previous Rx's Medication Instructions Recorded Shower Chair #1 ea 10/04/22 gabapentin 300 mg capsule 300 mg PO TID #90 caps 05/30/24 walker (Ultra-Light Rollator misc) #1 ea 08/15/24 aripiprazole 5 mg tablet (Abilify) 5 mg PO QAM #90 tabs 08/28/24 alfuzosin 10 mg tablet,extended 10 mg PO QPM #90 tabs 09/05/24 release 24 hr acetaminophen 500 mg tablet 1,000 mg (2 x 500 mg) PO TID pain 09/16/24 (Tylenol Extra Strength) 30 days #180 tabs ondansetron 4 mg disintegrating 4 mg PO Q8 PRN nausea #20 tabs 09/16/24 tablet oxycodone 5 mg tablet 5 - 10 mg (1 - 2 x 5 mg) PO Q6 PRN 09/16/24 pain #40 tabs sennosides 8.6 mg tablet (Senokot) 8.6 mg PO BID prevent constipation 09/16/24 14 days #28 tabs duloxetine 60 mg capsule,delayed 60 mg PO QPM #90 caps 09/27/24 release cephalexin 500 mg capsule 500 mg PO QID #11 caps 10/05/24 Results & Data (ED) Vital Signs Vital Signs - 24 hr 10/05/24 14:03 10/05/24 14:04 10/05/24 14:04 Temperature 36.7 C 36.7 C Temperature Source Oral Pulse Rate 98 H 105 H 105 H Pulse Rate [Apical] Pulse Rate from SpO2 Sensor Pulse Rhythm [Apical] Pulse Strength [Apical] Respiratory Rate 16 19 Respiratory Effort / Characteristics Non-Labored Spontaneous Respiratory Depth Normal Respiratory Pattern Regular Blood Pressure 158/94 H 158/94 H Blood Pressure [Left Arm] Blood Pressure Mean 115 Blood Pressure Mean [Left Arm] Blood Pressure Position [Left Arm] Pulse Oximetry 97 Oxygen Delivery Method Room Air Room Air Oxygen Flow Rate 0 Sepsis Recent Fever Within 48 Hours No Sepsis New/Unexplained Change in Mental Status No Sepsis Action Taken by Nursing No Action Required 10/05/24 14:04 10/05/24 14:04 10/05/24 14:04 Temperature 36.7 C 36.7 C Temperature Source Oral Oral Pulse Rate Pulse Rate [Apical] 105 H 105 H Pulse Rate from SpO2 Sensor Pulse Rhythm [Apical] Pulse Strength [Apical] Respiratory Rate 19 19 Respiratory Effort / Characteristics Non-Labored Spontaneous Non-Labored Spontaneous Respiratory Depth Normal Normal Respiratory Pattern Blood Pressure Blood Pressure [Left Arm] 154/98 H 154/98 H Blood Pressure Mean Blood Pressure Mean [Left Arm] 116 116 Blood Pressure Position [Left Arm] Pulse Oximetry 96 95 97 Oxygen Delivery Method Room Air Room Air Room Air Oxygen Flow Rate Sepsis Recent Fever Within 48 Hours Sepsis New/Unexplained Change in Mental Status Sepsis Action Taken by Nursing 10/05/24 14:15 10/05/24 14:24 10/05/24 14:27 Temperature Temperature Source Pulse Rate 103 H 100 H Pulse Rate [Apical] Pulse Rate from SpO2 Sensor 104 H 101 H Pulse Rhythm [Apical] Pulse Strength [Apical] Respiratory Rate 20 18 Respiratory Effort / Characteristics Respiratory Depth Respiratory Pattern Blood Pressure 162/90 H 182/94 H Blood Pressure [Left Arm] Blood Pressure Mean 114 123 Blood Pressure Mean [Left Arm] Blood Pressure Position [Left Arm] Pulse Oximetry 98 97 98 Oxygen Delivery Method Room Air Room Air Room Air Oxygen Flow Rate Sepsis Recent Fever Within 48 Hours Sepsis New/Unexplained Change in Mental Status Sepsis Action Taken by Nursing 10/05/24 14:54 10/05/24 15:00 10/05/24 16:00 Temperature 36.8 C Temperature Source Oral Pulse Rate Pulse Rate [Apical] 100 H 111 H Pulse Rate from SpO2 Sensor Pulse Rhythm [Apical] Pulse Strength [Apical] Respiratory Rate 19 20 Respiratory Effort / Characteristics Respiratory Depth Respiratory Pattern Blood Pressure 150/79 H Blood Pressure [Left Arm] 154/82 H 112/61 Blood Pressure Mean 122 Blood Pressure Mean [Left Arm] 106 78 Blood Pressure Position [Left Arm] Pulse Oximetry 97 95 Oxygen Delivery Method Room Air Room Air Oxygen Flow Rate Sepsis Recent Fever Within 48 Hours Sepsis New/Unexplained Change in Mental Status Sepsis Action Taken by Nursing 10/05/24 17:00 Temperature 36.8 C Temperature Source Oral Pulse Rate Pulse Rate [Apical] 112 H Pulse Rate from SpO2 Sensor Pulse Rhythm [Apical] Regular Pulse Strength [Apical] Normal Respiratory Rate 18 Respiratory Effort / Characteristics Spontaneous Respiratory Depth Normal Respiratory Pattern Regular Blood Pressure Blood Pressure [Left Arm] 102/61 Blood Pressure Mean Blood Pressure Mean [Left Arm] 74 Blood Pressure Position [Left Arm] Semi-fowlers Pulse Oximetry 96 Oxygen Delivery Method Room Air Oxygen Flow Rate Sepsis Recent Fever Within 48 Hours Sepsis New/Unexplained Change in Mental Status Sepsis Action Taken by Nursing Laboratory Data 10/06/24 06:35 10/06/24 06:35 Lab Results 10/05/24 10/05/24 10/05/24 Range/Units 14:06 14:12 14:28 WBC 8.04 (4.8-10.8) K/ul RBC 3.92 L (4.70-6.10) M/uL Hgb 10.3 L (14.0-18.0) g/dl POC Hgb 10.5 L (14.0-18.0) g/dl Hct 32.9 L (42.0-52.0) % POC Hct 31 L (42-52) % MCV 83.9 (80.0-100.0) fL MCH 26.3 (25.0-34.0) pg MCHC 31.3 L (32.0-36.0) g/dL RDW Std Deviation 46.7 H (36.4-46.3) fL RDW Coeff of Monique 15.4 H (11.5-14.5) % Plt Count 287 (130-400) K/uL MPV 9.2 L (9.4-12.4) fL Immature Gran % (Auto) 0.5 % Neut % (Auto) 69.4 % Lymph % (Auto) 18.5 % Day % (Auto) 8.7 % Eos % (Auto) 2.5 % Baso % (Auto) 0.4 % Neut # (Auto) 5.58 (1.40-6.50) K/uL Lymph # (Auto) 1.49 (1.20-3.40) K/uL Day # (Auto) 0.70 H (0.11-0.59) K/uL Eos # (Auto) 0.20 (0.00-0.50) K/uL Baso # (Auto) 0.03 (0.00-0.20) K/uL Immature Gran # (Auto) 0.04 (0.01-0.20) K/uL PT 31.6 H (9.0-12.0) Seconds POC INR 4.0 H (0.9-1.1) INR 3.2 H (0.9-1.1) APTT 44 H (21-31) Seconds PTT Ratio 1.6 POC Sodium 138 (135-144) mmol/L Sodium 139 (136-145) mmol/L POC Potassium 4.3 (3.3-5.0) mmol/L Potassium 4.3 (3.5-5.1) mmol/L POC Chloride 103 (101-112) mmol/L Chloride 104 (98-107) mmol/L Carbon Dioxide 28 (21-32) mmol/L POC Total CO2 26 (24-31) mmol/L Anion Gap 7 (3-11) POC Anion Gap 14.0 L (16-25) mmol/L POC BUN 17 (7-18) mg/dl BUN 20 (6-23) mg/dl Creatinine 1.08 (0.6-1.4) mg/dl POC Creatinine 1.2 (0.6-1.3) mg/dl Est Cr Clr Drug Dosing 86.5 ml/min eGFR 70.24 BUN/Creatinine Ratio 18.5 (10-20) Glucose 133 H (70-99(Fasting)) mg/dl POC Glucose (other) 135 H (70-99) mg/dl Calcium 9.1 (8.6-10.3) mg/dl POC Ioniz Calcium Jae 1.15 (1.12-1.32) mmol/l Total Bilirubin 0.5 (0.2-1.0) mg/dl AST 21 (13-39) U/L ALT 9 (7-52) U/L Alkaline Phosphatase 92 (34-104) U/L Total Protein 6.6 (6.0-8.3) gm/dl Albumin 3.3 L (3.4-5.0) gm/dl Globulin 3.3 (2.5-4.0) gm/dl Albumin/Globulin Ratio 1.0 (0.9-2) Lipase 21 (11-82) U/L Blood Type O Positive Antibody Screen NEGATIVE 10/05/24 10/05/24 Range/Units 15:55 15:59 WBC (4.8-10.8) K/ul RBC (4.70-6.10) M/uL Hgb 10.2 L (14.0-18.0) g/dl POC Hgb 10.9 L (14.0-18.0) g/dl Hct 33.3 L (42.0-52.0) % POC Hct 32 L (42-52) % MCV (80.0-100.0) fL MCH (25.0-34.0) pg MCHC (32.0-36.0) g/dL RDW Std Deviation (36.4-46.3) fL RDW Coeff of Monique (11.5-14.5) % Plt Count (130-400) K/uL MPV (9.4-12.4) fL Immature Gran % (Auto) % Neut % (Auto) % Lymph % (Auto) % Day % (Auto) % Eos % (Auto) % Baso % (Auto) % Neut # (Auto) (1.40-6.50) K/uL Lymph # (Auto) (1.20-3.40) K/uL Day # (Auto) (0.11-0.59) K/uL Eos # (Auto) (0.00-0.50) K/uL Baso # (Auto) (0.00-0.20) K/uL Immature Gran # (Auto) (0.01-0.20) K/uL PT (9.0-12.0) Seconds POC INR (0.9-1.1) INR (0.9-1.1) APTT (21-31) Seconds PTT Ratio POC Sodium 138 (135-144) mmol/L Sodium (136-145) mmol/L POC Potassium 4.3 (3.3-5.0) mmol/L Potassium (3.5-5.1) mmol/L POC Chloride 103 (101-112) mmol/L Chloride (98-107) mmol/L Carbon Dioxide (21-32) mmol/L POC Total CO2 23 L (24-31) mmol/L Anion Gap (3-11) POC Anion Gap 18.0 (16-25) mmol/L POC BUN 18 (7-18) mg/dl BUN (6-23) mg/dl Creatinine (0.6-1.4) mg/dl POC Creatinine 1.1 (0.6-1.3) mg/dl Est Cr Clr Drug Dosing ml/min eGFR BUN/Creatinine Ratio (10-20) Glucose (70-99(Fasting)) mg/dl POC Glucose (other) 149 H (70-99) mg/dl Calcium (8.6-10.3) mg/dl POC Ioniz Calcium Jae 1.08 L (1.12-1.32) mmol/l Total Bilirubin (0.2-1.0) mg/dl AST (13-39) U/L ALT (7-52) U/L Alkaline Phosphatase (34-104) U/L Total Protein (6.0-8.3) gm/dl Albumin (3.4-5.0) gm/dl Globulin (2.5-4.0) gm/dl Albumin/Globulin Ratio (0.9-2) Lipase (11-82) U/L Blood Type Antibody Screen Administered Medications Acetaminophen (Acetaminophen 500 Mg Tab) 1,000 mg PO TID LEV Stop: 11/04/24 20:59 Last Admin: 10/06/24 12:52 Dose: 1,000 mg Documented By: Admin: 10/06/24 09:00 Dose: Not Given Documented By: TRZaire Admin: 10/05/24 20:24 Dose: 1,000 mg Documented By: EKF Aripiprazole (Aripiprazole 5 Mg Tab) 5 mg PO QAM LEV Stop: 11/05/24 08:59 Last Admin: 10/06/24 12:49 Dose: 5 mg Documented By: TRZaire Cyanocobalamin (Cyanocobalamin (B-12) 500 Mcg Tablet) 1,000 mcg PO QAM LEV Stop: 11/05/24 08:59 Last Admin: 10/06/24 12:49 Dose: 1,000 mcg Documented By: TRZaire Duloxetine HCl (Duloxetine Hcl 60 Mg Cap) 60 mg PO QPM LEV Stop: 11/04/24 20:59 Last Admin: 10/05/24 20:24 Dose: 60 mg Documented By: EKF Gabapentin (Gabapentin 300 Mg Cap) 300 mg PO TID LEV Stop: 11/04/24 20:59 Last Admin: 10/06/24 12:49 Dose: 300 mg Documented By: TRZaire Admin: 10/06/24 12:22 Dose: Not Given Documented By: Admin: 10/05/24 20:24 Dose: 300 mg Documented By: EKF Ceftriaxone Sodium (Rocephin) 2,000 mg in 50 mls @ 100 mls/hr IV Q24H LEV Stop: 10/13/24 16:59 Last Infusion: 10/06/24 17:26 Dose: Infused Documented By: Admin: 10/06/24 16:40 Dose: 100 mls/hr Documented By: DEON Sodium Chloride (Nss) 1,000 mls @ 100 mls/hr IV .Q10H LEV Stop: 10/07/24 06:00 Last Admin: 10/06/24 12:20 Dose: 100 mls/hr Documented By: AGUSTINA Tranexamic Acid (Tranexamic Acid / 0.7% Nacl) 1,000 mg in 100 mls @ 12.5 mls/hr IV .Q8H ONE Stop: 10/06/24 20:59 Last Admin: 10/06/24 13:24 Dose: 12.5 mls/hr Documented By: AGUSTINA Morphine Sulfate (Morphine Sulfate 2 Mg/Ml Carp) 2 mg IV Q2H PRN PRN Reason: Pain Stop: 10/19/24 17:36 Last Admin: 10/06/24 04:14 Dose: 2 mg Documented By: Admin: 10/06/24 00:23 Dose: 2 mg Documented By: Admin: 10/05/24 20:23 Dose: 2 mg Documented By: NEELIMA Multivitamins (Multivitamin Tab) 1 tab PO QAM LEV Stop: 11/05/24 08:59 Last Admin: 10/06/24 12:49 Dose: 1 tab Documented By: AGUSTINA Oxycodone HCl (Oxycodone Hcl Ir 5 Mg Tab (Immediate Release)) 5 - 10 mg PO Q6 PRN PRN Reason: pain Stop: 10/19/24 17:02 Last Admin: 10/06/24 13:29 Dose: 10 mg Documented By: Admin: 10/05/24 20:55 Dose: 10 mg Documented By: NEELIMA Pantoprazole Sodium (Pantoprazole 40 Mg Tab) 40 mg PO QAM LEV Stop: 11/05/24 08:59 Last Admin: 10/06/24 12:49 Dose: 40 mg Documented By: AGUSTINA Sennosides (Senna 8.6 Mg Tab) 8.6 mg PO BID LEV Stop: 11/04/24 20:59 Last Admin: 10/06/24 12:52 Dose: 8.6 mg Documented By: Admin: 10/05/24 20:25 Dose: 8.6 mg Documented By: NEELIMA Tamsulosin HCl (Tamsulosin Hcl 0.4 Mg Cap) 0.4 mg PO QPM LEV Stop: 11/04/24 20:59 Last Admin: 10/05/24 20:24 Dose: 0.4 mg Documented By: NEELIMA Vitamin D (Cholecalciferol 25 Mcg (1000 Units) Tab) 50 mcg PO QAM LEV Stop: 11/05/24 08:59 Last Admin: 10/06/24 12:49 Dose: 50 mcg Documented By: AGUSTINA Discontinued Medications Fentanyl Citrate (Fentanyl Citrate Pf 100 Mcg/2 Ml Vial) 25 mcg IV Q5M PRN PRN Reason: PACU Use Only-Pain Stop: 10/06/24 16:30 Last Admin: 10/06/24 11:31 Dose: 25 mcg Documented By: Admin: 10/06/24 11:26 Dose: 25 mcg Documented By: OCTAVIANO Gelatin (Gelatin Sponge 12-7mm) Confirm Administered Dose 5 each .ROUTE .STK-MED ONE Stop: 10/05/24 15:28 Last Admin: 10/05/24 15:32 Dose: 3 each Documented By: ABDIFATAH Hydromorphone HCl (Hydromorphone Inj 0.5 Mg/0.5 Ml Syr) 0.5 mg IV NOW STA Stop: 10/05/24 14:05 Last Admin: 10/05/24 14:22 Dose: 0.5 mg Documented By: KIRSTEN Prothrombin Complex Concent ( (Human) 2,500 units/ Syringe) 100 mls @ 10 mls/min IV NOW ONE; Protocol Stop: 10/05/24 15:24 Last Admin: 10/05/24 15:16 Dose: 10 mls/min Documented By: ABDIFATAH Phytonadione 10 mg/ Dextrose 51 mls @ 102 mls/hr IV ONE ONE Stop: 10/05/24 15:29 Last Infusion: 10/05/24 16:13 Dose: Infused Documented By: Admin: 10/05/24 15:29 Dose: 102 mls/hr Documented By: ABDIFATAH Ceftriaxone Sodium (Rocephin) 2,000 mg in 50 mls @ 100 mls/hr IV NOW STA Stop: 10/05/24 18:10 Last Infusion: 10/05/24 18:15 Dose: Infused Documented By: Admin: 10/05/24 17:45 Dose: 100 mls/hr Documented By: ABDIFATAH Cefazolin Sodium (Ancef 3000mg) 3,000 mg in 72.5 mls @ 130 mls/hr IV ONCE ONE; Protocol Stop: 10/06/24 11:07 Last Infusion: 10/06/24 12:20 Dose: Infused Documented By: Admin: 10/06/24 09:50 Dose: 130 mls/hr Documented By: KISHAN Cefazolin Sodium (Ancef 1000mg) 1,000 mg in 7.5 mls @ 2.5 mls/min IV ONCE ONE Stop: 10/06/24 10:37 Last Admin: 10/06/24 10:38 Dose: 2.5 mls/min Documented By: [id number] Tranexamic Acid (Tranexamic Acid / 0.7% Nacl) 1,000 mg in 100 mls @ 600 mls/hr IV NOW STA Stop: 10/06/24 12:29 Last Infusion: 10/06/24 13:24 Dose: Infused Documented By: Admin: 10/06/24 13:05 Dose: 600 mls/hr Documented By: AGUSTINA Ioversol (Optiray 320 125ml) 112 ml IV ONCE ONE Stop: 10/05/24 14:42 Last Admin: 10/05/24 14:42 Dose: 112 ml Documented By: JESUS Labetalol HCl (Labetalol Hcl Iv 5 Mg/Ml 20ml) 5 mg IV Q5M PRN PRN Reason: Hypertension Last Admin: 10/06/24 11:42 Dose: 5 mg Documented By: Admin: 10/06/24 11:15 Dose: 5 mg Documented By: OCTAVIANO Labetalol HCl (Labetalol Hcl Iv 5 Mg/Ml 20ml) Confirm Administered Dose 5 mg IV .STK-MED ONE Stop: 10/06/24 11:15 Last Admin: 10/06/24 12:56 Dose: Not Given Documented By: AGUSTINA Morphine Sulfate (Morphine Sulfate 2 Mg/Ml Carp) 2 mg IV NOW STA Stop: 10/05/24 17:38 Last Admin: 10/05/24 18:34 Dose: 2 mg Documented By: Vancomycin HCl (Vancomycin Hcl 1000mg/20ml Vial) Confirm Administered Dose 50 mg .ROUTE .STK-MED ONE Stop: 10/06/24 10:10 Last Admin: 10/06/24 12:56 Dose: Not Given Documented By: TRB Imaging Data Radiologist's Impression: Chest X-Ray 10/05/24 14:04 XR chest 1V portable CLINICAL HISTORY: Trauma COMPARISON STUDY: 07/12/2024 FINDINGS: Stable mild cardiomegaly without pulmonary vascular congestion. No consolidation or pleural effusion. No pneumothorax. IMPRESSION: No acute findings. ACT 112: Negative or not required by law. Electronically signed by: Usman Ward M.D. 10/05/2024 2:44 PM Knee X-Ray 10/05/24 14:04 XR knee RT 1 or 2V routine CLINICAL HISTORY: knee replacement, fall COMPARISON: 09/27/2024 FINDINGS: Right knee prosthesis shows no hardware complication. The prior skin joelle have been removed. No fracture or dislocation seen. IMPRESSION: No fracture seen. ACT 112: Negative or not required by law. Electronically signed by: Usman Ward M.D. 10/05/2024 2:47 PM Shoulder X-Ray 10/05/24 14:04 XR shoulder RT min 2V routine CLINICAL HISTORY: shoulder pain, fall, swelling COMPARISON: None FINDINGS: No fracture or dislocation seen. IMPRESSION: No fracture seen. ACT 112: Negative or not required by law. Electronically signed by: Usman Ward M.D. 10/05/2024 2:48 PM Abdomen/Pelvis CT 10/05/24 14:[address] WITH IV CONTRAST CT DOSE: 2543 HISTORY: Trauma TECHNIQUE: Multiaxial CT images of the abdomen and pelvis were performed following the IV administration of 112 cc of Optiray, A dose lowering technique was utilized adhering to the principles of ALARA. COMPARISON STUDY: 06/30/2024 FINDINGS: Gallbladder is surgically absent. Liver, spleen, pancreas, kidneys, and adrenal glands show no evidence of acute injury. There is a stable very small subcapsular fluid collection lateral right kidney. There is minimal right hydronephrosis, improved. No left hydronephrosis. No renal calculi. No evidence of abdominal aortic aneurysm or injury. Pelvis: Prostate is mildly enlarged. Urinary bladder is nondistended. No bowel inflammation or obstruction seen. No free fluid or free air. No hematoma seen. Osseous structures: There are diffuse spinal degenerative changes. There are mild degenerative changes at the hips. No acute fracture seen at the visualized osseous structures. There are a few stable bone islands. IMPRESSION: No acute injury seen. ACT 112: Negative or not required by law. The above report was generated using voice recognition software. It may contain grammatical, syntax or spelling errors. Electronically signed by: Usman Ward M.D. 10/05/2024 3:[address] 10/05/24 14:05 CT cervical spine wo con CT DOSE: 1365.44 mGy.cm CLINICAL HISTORY: 79 years-old Male with Trauma. Acute neck trauma, COMPARISON: Head CT of same day TECHNIQUE: Multiple axial CT images of the cervical spine were obtained without contrast. A dose lowering technique was utilized adhering to the principles of ALARA. FINDINGS: Moderate to severe multilevel intervertebral disc space narrowing with moderate spondylitic spurring and facet arthrosis. There is severe right-sided facet arthrosis at C7-T1. Minimal superior end plate compression at T3 again noted. Multilevel neural foraminal narrowing. The cervical soft tissues appear unremarkable. The visualized lung apices appear clear. IMPRESSION: No acute cervical spine fracture or subluxation identified. ACT 112: Negative or not required by law. The above report was generated using voice recognition software. It may contain grammatical, syntax or spelling errors. Electronically signed by: Steven Thomas M.D. 10/05/2024 2:[address] 10/05/24 14:[address] WITH CONTRAST CT DOSE: 2543.31 mGy.cm HISTORY: Trauma TECHNIQUE: Multiaxial CT images of the chest were performed following the IV administration of 112 cc of Optiray. A dose lowering technique was utilized adhering to the principles of ALARA. COMPARISON STUDY: 09/10/2023 FINDINGS: There is no pulmonary contusion, pleural effusion, or pneumothorax. There is patchy opacity in the subcutaneous tissues anterior to the right shoulder, likely bruising. No significant hematoma seen in the region. No mediastinal hematoma or evidence of thoracic aortic injury. No pericardial effusion. There is stable mild height loss at a few mid thoracic vertebral bodies. No acute fracture seen at the visualized osseous structures. IMPRESSION: Likely bruising at the soft tissues of the anterior right shoulder. No other acute injury seen of the chest. ACT 112: Negative or not required by law. Electronically signed by: Usman Ward M.D. 10/05/2024 2:[address] 10/05/24 14:05 CT head/brain wo con CLINICAL HISTORY: trauma. TECHNIQUE: Multiple axial CT images of the head were obtained without contrast. A dose lowering technique was utilized adhering to the principles of ALARA. CT DOSE: 1365 COMPARISON: 12/15/2023 FINDINGS: No intracranial hemorrhage seen. No mass effect, midline shift, or hydrocephalus. Stable moderate chronic small vessel ischemic changes. There is a right periorbital soft tissue hematoma. No skull fracture seen. Visualized paranasal sinuses and mastoid air cells are clear. IMPRESSION: No acute intracranial findings. ACT 112: Negative or not required by law. The above report was generated using voice recognition software. It may contain grammatical, syntax or spelling errors. Electronically signed by: Usman Ward M.D. 10/05/2024 2:47 PM Discharge Plan Visit Data Chief Complaint: Trauma Stated Complaint: FALL, KNEE INCISION OPEN, SHOULDER DISLOCATION ED Provider: Campbell Deluna Discharge Problem: Dehiscence of operative wound, Venous bleed, Hematoma, Acute head trauma Patient Disposition: Admitted As Inpatient Condition: Serious Discharge Instructions Interventions: ED Discharge Assessment Last Done: 10/05/24 17:40
--- NOTE | 2024-10-05 16:58 | History & Physical Report ---
Date of Service October 05, 2024 Assessment & Plan (1) Dehiscence of surgical wound: Plan This is a 79-year-old male who presented on 09/27 for ambulatory dysfunction. Recent R TKA on 09/[address] Lopez. Originally discharged home on home health on 09/25, but patient developed worsening of pain and ambulatory dysfunction. Cellulitis appears to be improving on antibiotics. #Dehiscence of surigical wound secondary to fall. NPO. plan for washout tomorrow. #Right lower extremity cellulitis much improved -on rocephin.. Last day abx initially planned for 10/07 However with this injury antibiotics will likely need to be extended. -Blood cultures have been negative -patient is clinically doing well. #Recent history of right TKA | ambulatory dysfunction - Ortho consulted for washout. Continue bowel regimen #History of DVT/pulmonary embolism No evidence of DVT on RLE Doppler on recent discharge. vitamin k given due to bleeding. #Depression/anxiety Continue duloxetine, aripiprazole #GERD Continue PPI History of Present Illness Chief Complaint: mechanical fall Primary Care Provider: Henry Prieto, This is a pleasant 79-year-old male presenting with right knee and right shoulder pain following a mechanical fall earlier today. The patient was recently discharged from the hospital after treatment for altered mental status and right lower extremity cellulitis. He has a past surgical history significant for a right total knee arthroplasty (TKA) performed on 09/19/[address] Lopez. Discharge instructions included the use of a walker for ambulation. The patient reported that his current apartment setup was unsafe, prompting a plan to return to his wifes apartment. However, he experienced a mechanical fall while walking without his walker during this transition. He denies loss of consciousness, however he did have skin laceration to his right knee and right shoulder. He has extensive right knee wound dehiscene with bleeding and soft tissue swelling to the right should region. Ortho is alreqdy consulted. Medicine called for admission. Allergies Allergy/AdvReac Type Severity Reaction Status Date / Time amoxicillin Allergy Intermediate rash Verified 10/05/24 15:07 Penicillins Allergy Intermediate rash Verified 10/05/24 15:07 Home Medications Medication Instructions Recorded Confirmed Type Shower Chair #1 ea 10/04/22 09/18/24 Rx cholecalciferol (vitamin D3) 50 50 mcg PO QAM 09/09/23 10/05/24 History mcg (2,000 unit) capsule cyanocobalamin (vitamin B-12) 1,000 mcg PO QAM 09/09/23 10/05/24 History 1,000 mcg tablet multivitamin with minerals 1 cap PO QAM 09/10/23 10/05/24 History gabapentin 300 mg capsule 300 mg PO TID #90 caps 05/30/24 10/05/24 Rx pantoprazole 40 mg tablet,delayed 40 mg PO QAM 06/28/24 10/05/24 History release walker (Ultra-Light Rollator misc) #1 ea 08/15/24 09/18/24 Rx aripiprazole 5 mg tablet (Abilify) 5 mg PO QAM #90 tabs 08/28/24 10/05/24 Rx alfuzosin 10 mg tablet,extended 10 mg PO QPM #90 tabs 09/05/24 10/05/24 Rx release 24 hr warfarin 5 mg tablet 5 - 7.5 mg PO UD 09/11/24 10/05/24 History acetaminophen 500 mg tablet 1,000 mg (2 x 500 mg) PO TID pain 09/16/24 10/05/24 Rx (Tylenol Extra Strength) 30 days #180 tabs ondansetron 4 mg disintegrating 4 mg PO Q8 PRN nausea #20 tabs 09/16/24 10/05/24 Rx tablet oxycodone 5 mg tablet 5 - 10 mg (1 - 2 x 5 mg) PO Q6 PRN 09/16/24 10/05/24 Rx pain #40 tabs sennosides 8.6 mg tablet (Senokot) 8.6 mg PO BID prevent constipation 09/16/24 10/05/24 Rx 14 days #28 tabs duloxetine 60 mg capsule,delayed 60 mg PO QPM #90 caps 09/27/24 10/05/24 Rx release secukinumab 150 mg/mL subcutaneous 300 mg subcut UD 09/27/24 10/05/24 History pen injector (Cosentyx Pen 300 mg/2 pens () cephalexin 500 mg capsule 500 mg PO QID #11 caps 10/05/24 10/05/24 Rx Past Med/Surg History Problem List Dehiscence of surgical wound care home (current) use of anticoagulants (Acute) Morbid obesity with BMI of 40.0-44.9, adult Venous stasis of lower extremity (Acute) Status post total knee replacement, right (Acute) Cellulitis of right leg (Acute) History of arthroplasty of right knee Ambulatory dysfunction Cellulitis of right lower leg Status post total right knee replacement (Acute) Hydronephrosis Right rotator cuff tear Bilateral primary osteoarthritis of knee Abnormal ankle brachial index (Acute) Constipation Lumbar radiculopathy, right Erectile dysfunction Increased urinary frequency Arthritis Chronic diarrhea Fatty infiltration of liver Morbid obesity (Chronic) BMI 42 Medical History Orthostatic hypotension noted by PCP 07/16/24 visit; lisinopril D/C; monitoring Morbid obesity History of blood transfusion 30 yrs ago Prediabetes diet controlled per pt Low iron hx>iron infusions in past Short-term memory loss "mild" Psoriatic arthritis Lumbar radiculopathy Physical debility uses cane/walker to ambulate Sacroiliitis Chronic venous insufficiency 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, stable per pt care home current use of 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 Degenerative arthritis of knee, bilateral Depression Sleep apnea does not use device BPH loc w urin obs/LUTS Hx of deep venous thrombosis 2016; on coumadin currently GERD (gastroesophageal reflux disease) controlled, stable per pt Hx pulmonary embolism (~2015) reason for coumadin Lumbago Hx of pancreatitis Generalized osteoarthritis Hiatal hernia Scoliosis History of kidney stones History of colitis last episode more than 10 years ago Macular degeneration Lumbar spondylosis Metabolic syndrome SNHL (sensorineural hearing loss) Asthma denies any inhaler use Benign esophageal stricture hx-resolved Surgical History History of cystoscopy cysto, urethral dilation, R stent placement 07/01/24: [place]: LMA iGel 5 07/30/24: cysto, ureteral dilation, bilat. RP, laser endopyelogram, stent exchange History of anesthesia reaction August 2023>attemped robotic lap abdomen procedure aborted d/t BP dropping H/O abdominal surgery August 2023>lap abdominal procedure attempted in [facility] to correct pouch formation "BP dropped/procedure aborted" History of lithotripsy History of appendectomy History of esophagogastroduodenoscopy (EGD) (~06/2021) History of colonoscopy History of tooth extraction all teeth removed History of bilateral cataract extraction History of cardiac cath 1994? @ [facility]--no stents; no cardio. S/P tonsillectomy S/P hernia repair incisional hernia S/P gastroplasty 36 years ago>currently being seen to have this procedure corrected in a few months. S/P cholecystectomy Family History Family/Other Hearing loss Paternal cousins Mother Heart disease Hypertension Family history of reaction to anesthesia difficulty waking after surgery Other Myocardial infarction No family history of bleeding disorder Prostate cancer Denies family history of Ovarian cancer Breast cancer Colorectal cancer Social History Smoking Status: Never smoker Tobacco Type: Cigarettes Age Started Using Tobacco: 16; Age Quit Using Tobacco: 30; packs per day: 1; Cigarettes Per Day: QUIT ~45 + YRS AGO; Second Hand Exposure: No; Do You Dip or Chew Tobacco: No; Hx Alcohol Use: No Hx Substance Use: No Preferred Language: Turkish Communication Ability: Effective Visual Impairment: Limited Hearing Ability: Use of Hearing Aid Whizzer Operator Required: No Beliefs That Will Affect Care: None marital status: Current Living Situation: Other Current Living Situation Comment: with roommates current occupational status: retired How many Children do You have: 1 Other Information That Helps Us Care for You: No Feels Safe at Home: Yes Safety Concerns: Feels Safe At This Time Childhood Exposure to Second-Hand Smoke: Yes Diet: regular caffeine: No Dental Care, Regularly: No Physical Activity Frequency: Does not Exercise Seatbelt Use: always Sunscreen Use: Yes Assistive Devices: Denture - Upper, Denture - Lower, Glasses and Walker Review of Systems Constitutional: no fever and no body aches Eyes: no blind spots Ear, Nose, Mouth, Throat: no ear pain Respiratory: no cough Cardiovascular: no chest pain Gastrointestinal: no abdominal pain Genitourinary: no dysuria Musculoskeletal: + myalgia and + body aches Integumentary: no rash Neurologic: + unsteadiness and + falls Psychiatric: no behavioral changes Endocrine: + fatigue Hematologic / Lymphatic: + easy bleeding Allergy / Immunological: no GI upset with certain foods Physical Exam Constitutional: well developed and well nourished laceration noted over right eye brow. Eyes: PERRL, conjunctivae normal, anicteric sclerae ENMT: external ear and nose normal, oropharynx normal Neck: trachea midline, no thyromegaly Respiratory: normal respiratory effort, lungs clear to auscultation Cardiovascular: RRR, no murmur, no edema Gastrointestinal (Abdomen): normal bowel sounds, soft, nontender, no hepatosplenomegaly Musculoskeletal: laceration over right knee, right shoulder skin swelling Skin: Trauma: + evidence of skin trauma Neurologic: PERRL, EOMI, accommodation nl, no face palsy, no dysarthria Psychiatric: A+Ox3, euthymic affect Lymphatic: no cervical or axillary lymphadenopathy Results & Data Results & Data Vital Signs (Past 12 Hours) Vital Signs Temp Pulse Pulse Resp BP BP Pulse Ox 10/05/24 16:00 36.8 C 111 H 20 112/61 95 10/05/24 15:00 100 H 19 154/82 H 97 10/05/24 14:54 150/79 H 10/05/24 14:27 100 H 18 182/94 H 98 10/05/24 14:24 97 10/05/24 14:15 103 H 20 162/90 H 98 10/05/24 14:04 36.7 C 105 H 19 154/98 H 97 10/05/24 14:04 95 10/05/24 14:04 36.7 C 105 H 19 154/98 H 96 10/05/24 14:04 36.7 C 105 H 19 158/94 H 10/05/24 14:04 36.7 C 105 H 16 158/94 H 97 10/05/24 14:03 98 H O2 Del Method O2 Flow Rate 10/05/24 16:00 Room Air 10/05/24 15:00 Room Air 10/05/24 14:54 10/05/24 14:27 Room Air 10/05/24 14:24 Room Air 10/05/24 14:15 Room Air 10/05/24 14:04 Room Air 10/05/24 14:04 Room Air 10/05/24 14:04 Room Air 10/05/24 14:04 Room Air 0 10/05/24 14:04 Room Air 10/05/24 14:03 PG Care Time/CCT Total # of Minutes Spent Total Time Spent with Patient: Total time spent is greater than 50% in coordination of care (as documented) at patient's floor/unit and/or counseling patient: Coding Level of Care Code 44562 INT INP/OBS CARE MIN Diagnoses Postoperative wound dehiscence, initial encounter T81.31XA Encounter type: initial encounter (1) Dehiscence of surgical wound Encounter type: initial encounter Qualified Code(s): T81.31XA - Disruption of external operation (surgical) wound, not elsewhere classified, initial encounter
[2024-10-05 17:23] LABS: Hematocrit (blood only) 33.3 % (42.0-52.0); Hemoglobin 10.2 g/dl (14.0-18.0)
[2024-10-05] MEDS: cefTRIAXone SODIUM 2,000 MG/50 ML BAG IV STA (17:45)
[2024-10-05 18:31] LABS: Appearance Urine Clear (Clear); Bacteria Urine Automated None Seen (None Seen); Cast Urine Automated 0-2 /lpf (0-2); Epithelial Cell Urine Auto 0-2 /hpf (0-2); Glucose Urine UA Negative (Negative); WBC Urine Automated 0-5 /hpf (0-5)
[2024-10-05] MEDS: MoRPHine SULFATE 2 MG/ML CARP IV STA (18:34)
[2024-10-05] MEDS: MoRPHine SULFATE 2 MG/ML CARP IV PRN (20:23)
[2024-10-05] MEDS: ACETAMINOPHEN 500 MG TAB PO SCH (20:24)
[2024-10-05] MEDS: GABAPENTIN 300 MG CAP PO SCH (20:24)
[2024-10-05] MEDS: TAMSULOSIN HCL 0.4 MG CAP PO SCH (20:24)
[2024-10-05] MEDS: SENNA 8.6 MG TAB PO SCH (20:25)
[2024-10-06 06:50] LABS: Hematocrit (blood only) 26.5 % (42.0-52.0); Hemoglobin 8.3 g/dl (14.0-18.0); Mean Corpuscular Hemoglobin 26.3 pg (25.0-34.0); Mean Corpuscular Volume 84.1 fL (80.0-100.0); Platelet Count 243 K/uL (130-400); RDW Standard Deviation 47.1 fL (36.4-46.3); Red Blood Count 3.15 M/uL (4.70-6.10); White Blood Count 7.33 K/ul (4.8-10.8)
[2024-10-06 07:17] LABS: Alanine Aminotransferase 7.0 U/L (7-52); Albumin Globulin Ratio 1.2 (0.9-2); Alkaline Phosphatase 72.0 U/L (34-104); Anion Gap 6.0 (3-11); Bilirubin,Total 0.4 mg/dl (0.2-1.0); Blood Urea Nitrogen 23.0 mg/dl (6-23); Calcium 8.4 mg/dl (8.6-10.3); Carbon Dioxide 29.0 mmol/L (21-32); Chloride 106.0 mmol/L (98-107); Creatinine Clr Calc Pharmacy 85.7 ml/min; Globulin 2.6 gm/dl (2.5-4.0); Glucose 131.0 mg/dl (70-99(Fasting)); Potassium 4.1 mmol/L (3.5-5.1); Sodium 141.0 mmol/L (136-145); Total Protein 5.6 gm/dl (6.0-8.3)
[2024-10-06 07:32] LABS: INR 1.1 (0.9-1.1); Prothrombin Time 12.0 Seconds (9.0-12.0)
--- NOTE | 2024-10-06 07:42 | Orthopedic Progress Note ---
Date of Service October 06, 2024 Assessment & Plan (1) Dehiscence of surgical wound: Plan: 79-year-old gentleman now 2 and half weeks out from a total knee replacement complicated by multiple falls, ambulatory dysfunction and wound dehiscence. Plan. The patient's been readmitted to the hospital. He is going to undergo an irrigation debridement and wound closure today by my partner Dr. Myers. The risks met this procedure explained. Will once again seek rehab versus alf facility placement for recovery. I am hopeful after 2 failures of this that the insurance company will consider covering at least alf facility coverage. (2) USP (current) use of anticoagulants: (3) Morbid obesity with BMI of 40.0-44.9, adult: (4) Venous stasis of lower extremity: (5) Status post total knee replacement, right: Admission and Anticipated Discharge Date Admission Date: October 05, 2024 Subjective 79-year-old gentleman now 2 and half weeks out from a right total knee replacement. He was discharged to home initially then readmitted recently due to ambulatory dysfunction and was just discharged yesterday and fell at home. He had been denied rehab as well as alf facility against the recommendations. Unfortunately he had no option other than to go home. He was brought back to the emergency room. An extensive workup. He has had some wound dehiscence from his fall. He is can undergo irrigation debridement and closure of the wound today. I am leaving town this morning and my partner Antony Myers is going to address this. Physical Exam Physical Exam: Examination of the right leg reveals the dressing to be in place. Just a slight bit of bloody drainage. Fairly mild swelling. He is neurologically intact. Results & Data Vital Signs (Past 12 Hours) Vital Signs Temp Pulse Resp BP Pulse Ox O2 Del Method 10/06/24 07:35 36.7 C 101 H 16 133/76 93 Room Air 10/06/24 00:28 115/71 10/05/24 19:54 36.7 C 100 H 18 176/83 H 98 Room Air Laboratory Results INR is down to 1.1. Hemoglobin is 8.3. Hematocrit is 26.5. Electrolytes are stable. (1) Dehiscence of surgical wound Encounter type: initial encounter Qualified Code(s): T81.31XA - Disruption of external operation (surgical) wound, not elsewhere classified, initial encounter
[2024-10-06] MEDS ORDERED: MIDAZOLAM HCL 1 MG/ML 2ML VIAL ONE (08:15)
[2024-10-06] MEDS ORDERED: ONDANSETRON INJ 2 MG/ML 2 ML VIAL ONE (08:15)
[2024-10-06] MEDS ORDERED: DEXAMETHASONE SOD INJ 4 MG/ML VIAL ONE (08:15)
[2024-10-06] MEDS ORDERED: LIDOCAINE 2% 2 ML VIAL/AMP(20MG/ML) INFIL ONE (08:15)
[2024-10-06] MEDS ORDERED: PROPOFOL IV EMULSION 10 MG/ML 20 ML VIAL IV ONE (08:15)
[2024-10-06] MEDS ORDERED: ONDANSETRON INJ 2 MG/ML 2 ML VIAL IV PRN (08:30)
[2024-10-06] MEDS ORDERED: ATROPINE SULFATE 0.1 MG/ML 10ML SYR IV PRN (08:30)
--- NOTE | 2024-10-06 08:30 | Anesthesiology Consultation ---
Date of Service October 06, 2024 Assessment & Plan (1) Encounter for pre-operative examination: Chart Review Chart Review: Acceptable Risk for Surgery and Patient NOT seen in Pre Admission Testing Consults Requested none History Surgery Operation Date: 10/06/24 09:00 Proposed Procedures p Total Knee Arthroplasty(Right) - Antony Myers MD Height/Weight Height: 6 ft 1 in Weight: 151.3 kg Allergies Allergy/AdvReac Type Severity Reaction Status Date / Time amoxicillin Allergy Intermediate rash Verified 10/05/24 15:07 Penicillins Allergy Intermediate rash Verified 10/05/24 15:07 Medications Home Medications Medication Instructions Recorded Confirmed Last Taken Shower Chair #1 ea 10/04/22 09/18/24 Unknown cholecalciferol (vitamin D3) 50 50 mcg PO QAM 09/09/23 10/05/24 09/18/24 10:00 mcg (2,000 unit) capsule cyanocobalamin (vitamin B-12) 1,000 mcg PO QAM 09/09/23 10/05/24 09/18/24 10:00 1,000 mcg tablet multivitamin with minerals 1 cap PO QAM 09/10/23 10/05/24 09/18/24 10:00 gabapentin 300 mg capsule 300 mg PO TID #90 caps 05/30/24 10/05/24 09/18/24 23:00 pantoprazole 40 mg tablet,delayed 40 mg PO QAM 06/28/24 10/05/24 09/18/24 10:00 release walker (Ultra-Light Rollator misc) #1 ea 08/15/24 09/18/24 Unknown aripiprazole 5 mg tablet (Abilify) 5 mg PO QAM #90 tabs 08/28/24 10/05/24 09/18/24 10:00 alfuzosin 10 mg tablet,extended 10 mg PO QPM #90 tabs 09/05/24 10/05/24 09/18/24 09:00 release 24 hr warfarin 5 mg tablet 5 - 7.5 mg PO UD 09/11/24 10/05/24 09/14/24 acetaminophen 500 mg tablet 1,000 mg (2 x 500 mg) PO TID pain 09/16/24 10/05/24 Unknown (Tylenol Extra Strength) 30 days #180 tabs ondansetron 4 mg disintegrating 4 mg PO Q8 PRN nausea #20 tabs 09/16/24 10/05/24 Unknown tablet oxycodone 5 mg tablet 5 - 10 mg (1 - 2 x 5 mg) PO Q6 PRN 09/16/24 10/05/24 Unknown pain #40 tabs sennosides 8.6 mg tablet (Senokot) 8.6 mg PO BID prevent constipation 09/16/24 10/05/24 Unknown 14 days #28 tabs duloxetine 60 mg capsule,delayed 60 mg PO QPM #90 caps 09/27/24 10/05/24 Unknown release secukinumab 150 mg/mL subcutaneous 300 mg subcut UD 09/27/24 10/05/24 Unknown pen injector (Cosentyx Pen 300 mg/2 pens () cephalexin 500 mg capsule 500 mg PO QID #11 caps 10/05/24 10/05/24 Unknown Active Medications Generic Name Dose Route Start Last Admin Trade Name Freq PRN Reason Stop Dose Admin Acetaminophen 1,000 mg 10/05/24 21:00 10/05/24 20:24 Acetaminophen 500 Mg Tab PO 11/04/24 20:59 1,000 mg TID LEV Administration Duloxetine HCl 60 mg 10/05/24 21:00 10/05/24 20:24 Duloxetine Hcl 60 Mg Cap PO 11/04/24 20:59 60 mg QPM LEV Administration Gabapentin 300 mg 10/05/24 21:00 10/05/24 20:24 Gabapentin 300 Mg Cap PO 11/04/24 20:59 300 mg TID LEV Administration Morphine Sulfate 2 mg 10/05/24 17:37 10/06/24 04:14 Morphine Sulfate 2 Mg/Ml Carp IV 10/19/24 17:36 2 mg Q2H PRN Administration Pain Oxycodone HCl 5 - 10 mg 10/05/24 17:03 10/05/24 20:55 Oxycodone Hcl Ir 5 Mg Tab (Immediate Release) PO 10/19/24 17:02 10 mg Q6 PRN Administration pain Sennosides 8.6 mg 10/05/24 21:00 10/05/24 20:25 Senna 8.6 Mg Tab PO 11/04/24 20:59 8.6 mg BID LEV Administration Tamsulosin HCl 0.4 mg 10/05/24 21:00 10/05/24 20:24 Tamsulosin Hcl 0.4 Mg Cap PO 11/04/24 20:59 0.4 mg QPM LEV Administration NPO Date Last Intake of Fluids: 10/05/24 Time Last Intake of Fluids: 23:59 Date Last Intake of Solids: 10/05/24 Time Last Intake of Solids: 13:00 Past Medical History Medical History Orthostatic hypotension noted by PCP 07/16/24 visit; lisinopril D/C; monitoring Morbid obesity History of blood transfusion 30 yrs ago Prediabetes diet controlled per pt Low iron hx>iron infusions in past Short-term memory loss "mild" Psoriatic arthritis Lumbar radiculopathy Physical debility uses cane/walker to ambulate Sacroiliitis Chronic venous insufficiency 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, 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 Degenerative arthritis of knee, bilateral Depression Sleep apnea does not use device BPH loc w urin obs/LUTS Hx of deep venous thrombosis 2015; on coumadin currently GERD (gastroesophageal reflux disease) controlled, stable per pt Hx pulmonary embolism (~2015) reason for coumadin Lumbago Hx of pancreatitis Generalized osteoarthritis Hiatal hernia Scoliosis History of kidney stones History of colitis last episode more than 10 years ago Macular degeneration Lumbar spondylosis Metabolic syndrome SNHL (sensorineural hearing loss) Asthma denies any inhaler use Benign esophageal stricture hx-resolved Past Family History Family History Family/Other Hearing loss Paternal cousins Mother Heart disease Hypertension Family history of reaction to anesthesia difficulty waking after surgery Other Myocardial infarction No family history of bleeding disorder Prostate cancer Denies family history of Ovarian cancer Breast cancer Colorectal cancer Past Surgical History Surgical History History of cystoscopy cysto, urethral dilation, R stent placement 07/01/24: [place]: LMA iGel 5 07/30/24: cysto, ureteral dilation, bilat. RP, laser endopyelogram, stent exchange History of anesthesia reaction August 2023>attemped robotic lap abdomen procedure aborted d/t BP dropping H/O abdominal surgery August 2023>lap abdominal procedure attempted in [facility] to correct pouch formation "BP dropped/procedure aborted" History of lithotripsy History of appendectomy History of esophagogastroduodenoscopy (EGD) (~06/2021) History of colonoscopy History of tooth extraction all teeth removed History of bilateral cataract extraction History of cardiac cath 1994? @ [facility]--no stents; no cardio. S/P tonsillectomy S/P hernia repair incisional hernia S/P gastroplasty 36 years ago>currently being seen to have this procedure corrected in a few months. S/P cholecystectomy Social History Smoking Status: Never smoker tobacco type: cigarettes Smoking cigarettes per day: QUIT ~45 + YRS AGO Do You Dip or Chew Tobacco: No Hx Alcohol Use: No Hx Substance Use: No substance use type: does not use Physical Exam Vital Signs Last Vital Signs Temp 98.1 F 10/06/24 07:35 Pulse 101 H 10/06/24 07:35 Resp 16 10/06/24 07:35 BP 133/76 10/06/24 07:35 Pulse Ox 93 10/06/24 07:35 O2 Del Method Room Air 10/06/24 07:35 O2 Flow Rate 0 10/05/24 14:04 Testing Laboratory Results 10/06/24 06:35 10/06/24 06:35 PT 12.0 Seconds (9.0-12.0) 10/06/24 06:35 INR 1.1 (0.9-1.1) 10/06/24 06:35 APTT 44 Seconds (21-31) H 10/05/24 14:06 Urine Color Yellow 10/05/24 18:16 Urine Appearance Clear (Clear) 10/05/24 18:16 Urine pH 6.0 (4.5-7.5) 10/05/24 18:16 Ur Specific [place] > 1.045 (1.000-1.030) H 10/05/24 18:16 Urine Protein Trace (Negative) H 10/05/24 18:16 Urine Glucose (UA) Negative (Negative) 10/05/24 18:16 Urine Ketones Trace (Negative) H 10/05/24 18:16 Urine Nitrite Negative (Negative) 10/05/24 18:16 Ur Leukocyte Esterase Negative (Negative) 10/05/24 18:16 Urine WBC (Auto) 0-5 /hpf (0-5) 10/05/24 18:16 Urine RBC (Auto) 6-10 /hpf (0-2) H 10/05/24 18:16 U Hyaline Cast (Auto) 0-2 /lpf (0-2) 10/05/24 18:16 U Epithel Cells (Auto) 0-2 /hpf (0-2) 10/05/24 18:16 Urine Bacteria (Auto) None Seen (None Seen) 10/05/24 18:16 Blood Type O Positive 10/05/24 14:06 Antibody Screen NEGATIVE 10/05/24 14:06 INR now 1.1 after K [facility] Electrocardiogram Date: 07/02/24 NSR, rate 70 bpm Chest X-Ray Date: 07/12/24 No focal consolidation, infiltrates, or granuloma noted. Echocardiogram Date: 10/03/19 LVEF 60% Difficult study No significant valvular pathology
--- NOTE | 2024-10-06 09:12 | History & Physical Bridge Note ---
Date of Service October 06, 2024 History & Physical Bridge Note I have examined the patient, reviewed the History & Physical and in the interval since the performance of the History & Physical I have noted the following changes of clinical significance: no changes noted
[2024-10-06] MEDS ORDERED: ceFAZolin 330 MG/ML 1 GM VIAL ONE ×3 (09:46)
[2024-10-06] MEDS: ceFAZolin 3000MG 3,000 MG/72.5 ML BAG IV ONE (09:50)
--- NOTE | 2024-10-06 11:11 | Operative Report ---
PG Post Operative Report Pre & Post Diagnosis Operation Date: 10/06/24 09:00 Pre-Op Diagnosis: Traumatic dehiscence of surgical wound after right total knee arthroplasty Post-Op Diagnosis: Traumatic dehiscence of surgical wound after right total knee arthroplasty I identified the patient and participated in the time-out.: Yes Procedure Operation Date: 10/06/24 09:00 Actual Procedures p Right Knee Wound Irrigation and Debridement and Closure(Right) - Antony Myers MD Surgeon Antony Myers MD Front End Developer Designer Minh Umana PA-C Estimated Blood Loss 25 Findings See Below Near complete surgical wound dehiscence from trauma. Wound bed clean with some obvious clotting from the traumatic event. No gross contamination. Knee capsule intact. No effusion palpable. Previous dermal Vicryl debrided. Liz jac closure accomplished with nylon. Specimens None Anesthesia Type General Complications none Disposition Accompanied Patient To Recovery: Yes Disposition: Recovery Room Indications 79-year-old male recently status post a right elective total knee replacement complicated by prolonged postoperative. Unfortunately he fell at home and landed directly in the anterior aspect of his knee. He developed significant wound dehiscence and bleeding. He was admitted to the hospital for further care. Given the complete dehiscence, recommended surgical management of wound. Reviewed the risk, benefits, and alternatives. Care plan was developed under the direction of his primary surgeon, Dr. Lopez. Patient was agreeable to the care we described and informed consent was obtained in the preoperative holding area. Description of Procedure On the day of surgery, the patient was greeted in the preoperative holding area. The informed consent was reviewed and confirmed by myself and the patient. The patient identified the surgical site and was marked by me. The patient was then turned over to anesthesia. He was taken to the OR, and placed upon the operating room table. A bump was placed under his hip to center the knee. The limb was then elevated. Betadine scrub and paint was used to decontaminate the wound and sterilized the limb. There was then prepped and draped in the usual sterile fashion for surgery. Surgical timeout was called by the circulating nurse, and verified by all present. Antibiotics had been infused, and the equipment was available and functional. Surgery was initiated by thorough irrigation using 3 L of normal saline and high flow cystoscopy tubing. Mechanical debridement was carried out using abrasion from lap sponges. All of the clot was evacuated. The wound extended on the lateral side to the posterior aspect of the knee. Significant clot was evacuated from the traumatic event. After the initial saline irrigation, the wound was clean. Next, sharp debridement was carried out using curettes and a Barr to gently scrape the slough from underlying subcutaneous tissues. The knee capsule had healed. There was no significant palpable effusion. All of the Vicryl suture had been sharply debrided from the dermal edges. An additional 3 L of normal saline were then used for an irrigation using high flow cystoscopy tubing. With the wound thoroughly irrigated and debrided, we began closure. 1 g of vancomycin powder was laid into the deeper recesses of the wound. #2 nylon sutures were used for provisional wound approximation and subsequently removed as began closure with 2-0 nylon. 2-0 nylon was used in vertical mattress and simple suture pattern to support the wound tension. Direct approximation was achieved. The closed wound was dressed with sterile Xeroform, plain gauze and ABDs, contained by Webril and a large Jian wrap from toes to the thigh. Patient tolerated the procedure well, was extubated in the operating without complication, and transported to the recovery area in stable condition. Disposition: Remain inpatient for postoperative recovery. He will be evaluated once again by physical and Occupational Therapy for appropriateness of his discharge location. Expected need for long-term facility if not acute rehab. Will continue perioperative antibiotic prophylaxis and his treatment for cellulitis. Routine hoahaoism of his previous anticoagulation will be sufficient for DVT prophylaxis. Weightbearing and gentle range of motion as tolerated. Will need wound check for suture removal in about 2-[address] Lopez. Will continue to follow while inpatient. I attest to the content of the Intraoperative Record and any orders documented therein. Any exceptions are noted below.
[2024-10-06] MEDS: LABETALOL HCL IV 5 MG/ML 20ML IV PRN (11:15)
--- NOTE | 2024-10-06 11:56 | Anesthesiology Progress Note ---
Date of Service October 06, 2024 Anesthesia Post Procedure Vital Signs Vital Signs: Temp Pulse Pulse Pulse Resp BP BP 10/06/24 11:55 74 15 10/06/24 11:45 98.2 F 79 12 10/06/24 11:42 76 180/93 H 10/06/24 11:35 76 12 10/06/24 11:25 79 14 10/06/24 11:20 85 216/96 H 10/06/24 11:15 85 16 10/06/24 11:07 97.7 F 90 14 10/06/24 07:35 98.1 F 101 H 16 133/76 10/06/24 00:28 115/71 10/05/24 19:54 98.1 F 100 H 18 176/83 H 10/05/24 18:20 99.7 F H 115 H 16 138/84 10/05/24 17:40 113 H 20 110/66 10/05/24 17:00 98.2 F 112 H 18 102/61 10/05/24 16:00 98.2 F 111 H 20 112/61 10/05/24 15:00 100 H 19 154/82 H 10/05/24 14:54 150/79 H 10/05/24 14:27 100 H 18 182/94 H 10/05/24 14:24 10/05/24 14:15 103 H 20 162/90 H 10/05/24 14:04 98.1 F 105 H 19 154/98 H 10/05/24 14:04 10/05/24 14:04 98.1 F 105 H 19 154/98 H 10/05/24 14:04 98.1 F 105 H 19 158/94 H 10/05/24 14:04 98.1 F 105 H 16 158/94 H 10/05/24 14:03 98 H Pulse Ox O2 Del Method O2 Flow Rate 10/06/24 11:55 99 Nasal Cannula 2 10/06/24 11:45 96 Room Air 10/06/24 11:42 10/06/24 11:35 99 Oxymask 2 10/06/24 11:25 100 Oxymask 2 10/06/24 11:20 10/06/24 11:15 100 Oxymask 5 10/06/24 11:07 99 Oxymask 5 10/06/24 07:35 93 Room Air 10/06/24 00:28 10/05/24 19:54 98 Room Air 10/05/24 18:20 96 Room Air 10/05/24 17:40 100 Room Air 10/05/24 17:00 96 Room Air 10/05/24 16:00 95 Room Air 10/05/24 15:00 97 Room Air 10/05/24 14:54 10/05/24 14:27 98 Room Air 10/05/24 14:24 97 Room Air 10/05/24 14:15 98 Room Air 10/05/24 14:04 97 Room Air 10/05/24 14:04 95 Room Air 10/05/24 14:04 96 Room Air 10/05/24 14:04 Room Air 0 10/05/24 14:04 97 Room Air 10/05/24 14:03 Pain Intensity Right Knee: Pain Intensity: 4 Transfer of Care Handoff Completed per policy Notes Mental Status: alert / awake / arousable and participated in evaluation Patient Amnestic to Procedure: Yes Nausea / Vomiting: adequately controlled Pain: adequately controlled Airway Patency, RR, SpO2: stable & adequate BP & HR: stable & adequate Hydration State: stable & adequate Anesthetic Complications: no major complications apparent and Pt Satisfied with anesthetic care
[2024-10-06] MEDS ORDERED: NALOXONE HCL 0.4 MG/1 ML VIAL/CARP IV PRN (12:20)
[2024-10-06] MEDS: SODIUM CHLORIDE 0.9% 1,000 ML IV SCH (12:20)
[2024-10-06] MEDS: CYANOCOBALAMIN (B-12) 500 MCG TABLET PO SCH (12:49)
[2024-10-06] MEDS: CHOLECALCIFEROL 25 MCG (1000 UNITS) TAB PO SCH (12:49)
[2024-10-06] MEDS: ARIPiprazole 5 MG TAB PO SCH (12:49)
[2024-10-06] MEDS: MULTIVITAMIN TAB PO SCH (12:49)
[2024-10-06] MEDS: LABETALOL HCL IV 5 MG/ML 20ML IV ONE (12:56)
[2024-10-06] MEDS: VANCOMYCIN HCL 1000MG/20ML VIAL ONE (12:56)
[2024-10-06] MEDS: TRANEXAMIC ACID / 0.7% NACL 1,000 MG/100 ML BAG IV STA (13:05)
[2024-10-06] MEDS: TRANEXAMIC ACID / 0.7% NACL 1,000 MG/100 ML BAG IV ONE (13:24)
[2024-10-06] MEDS: cefTRIAXone SODIUM 2,000 MG/50 ML BAG IV SCH (16:40)
--- NOTE | 2024-10-06 23:03 | Hospitalist Progress Note ---
"Date of Service October 06, 2024 Assessment & Plan (1) Dehiscence of surgical wound: Plan This is a 79-year-old male who presented on 09/27 for ambulatory dysfunction. Recent R TKA on 09/[address] Lopez. Originally discharged home on home health on 09/25, but patient developed worsening of pain and ambulatory dysfunction. Cellulitis appears to be improving on antibiotics. #Dehiscence of surigical wound secondary to fall. S/P washout. Patient showing no active signs of sepsis. #Right lower extremity cellulitis much improved -on rocephin.. Last day abx initially planned for 10/07 However with this injury antibiotics will likely need to be extended. -Blood cultures have been negative -patient is clinically doing well. #Recent history of right TKA | ambulatory dysfunction - Ortho consulted for washout. Continue bowel regimen #History of DVT/pulmonary embolism No evidence of DVT on RLE Doppler on recent discharge. vitamin k given due to bleeding. #Depression/anxiety Continue duloxetine, aripiprazole #GERD Continue PPI Admission and Anticipated Discharge Date Admission Date: October 05, 2024 Subjective 79 yo male reports some mild pain in his right knee Physical Exam Constitutional: well developed and well nourished Eyes: PERRL, conjunctivae normal, anicteric sclerae ENMT: external ear and nose normal, oropharynx normal Neck: trachea midline, no thyromegaly Respiratory: normal respiratory effort, lungs clear to auscultation Cardiovascular: RRR, no murmur, no edema Gastrointestinal (Abdomen): normal bowel sounds, soft, nontender, no hepatosplenomegaly Skin: Trauma: + evidence of skin trauma Neurologic: PERRL, EOMI, accommodation nl, no face palsy, no dysarthria Psychiatric: A+Ox3, euthymic affect Lymphatic: no cervical or axillary lymphadenopathy Results & Data Results & Data Vital Signs (Past 12 Hours) Vital Signs Temp Pulse Pulse Pulse Resp BP BP 10/06/24 22:54 36.6 C 78 18 122/64 10/06/24 19:47 36.6 C 95 H 18 116/66 10/06/24 16:00 10/06/24 15:15 36.5 C 85 16 150/72 H 10/06/24 14:19 36.6 C 77 18 134/70 10/06/24 13:26 36.8 C 78 16 151/74 H 10/06/24 12:47 36.9 C 77 16 162/81 H 10/06/24 12:20 36.6 C 81 16 157/76 H 10/06/24 12:09 88 13 160/88 H 10/06/24 11:55 74 15 172/90 H 10/06/24 11:45 36.8 C 79 12 171/79 H 10/06/24 11:42 76 180/93 H 10/06/24 11:35 76 12 180/93 H 10/06/24 11:25 79 14 178/87 H 10/06/24 11:20 85 216/96 H 10/06/24 11:15 85 16 218/96 H 10/06/24 11:07 36.5 C 90 14 208/98 H Pulse Ox O2 Del Method O2 Flow Rate 10/06/24 22:54 95 Room Air 10/06/24 19:47 94 Room Air 10/06/24 16:00 Nasal Cannula 2 10/06/24 15:15 96 Nasal Cannula 2 10/06/24 14:19 95 Nasal Cannula 2 10/06/24 13:26 95 Nasal Cannula 2 10/06/24 12:47 98 Nasal Cannula 2 10/06/24 12:20 92 Room Air 10/06/24 12:09 98 Nasal Cannula 2 10/06/24 11:55 99 Nasal Cannula 2 10/06/24 11:45 96 Room Air 10/06/24 11:42 10/06/24 11:35 99 Oxymask 2 10/06/24 11:25 100 Oxymask 2 10/06/24 11:20 10/06/24 11:15 100 Oxymask 5 10/06/24 11:07 99 Oxymask 5 PG Care Time/CCT Total # of Minutes Spent Total Time Spent with Patient: Total time spent is greater than 50% in coordination of care (as documented) at patient's floor/unit and/or counseling patient: Coding Level of Care Code 67479 SUB INP/OBS CARE 2/MIN Diagnoses Postoperative wound dehiscence, initial encounter T81.31XA Encounter type: initial encounter (1) Dehiscence of surgical wound Encounter type: initial encounter Qualified Code(s): T81.31XA - Disruption of external operation (surgical) wound, not elsewhere classified, initial encounter"
[2024-10-07 06:42] LABS: Hematocrit (blood only) 23.3 % (42.0-52.0); Hemoglobin 7.1 g/dl (14.0-18.0); Mean Corpuscular Hemoglobin 26.3 pg (25.0-34.0); Mean Corpuscular Volume 86.3 fL (80.0-100.0); Platelet Count 227 K/uL (130-400); RDW Standard Deviation 48.3 fL (36.4-46.3); Red Blood Count 2.70 M/uL (4.70-6.10); White Blood Count 9.29 K/ul (4.8-10.8)
[2024-10-07 07:04] LABS: Anion Gap 3.0 (3-11); Blood Urea Nitrogen 24.0 mg/dl (6-23); Calcium 8.1 mg/dl (8.6-10.3); Carbon Dioxide 31.0 mmol/L (21-32); Chloride 108.0 mmol/L (98-107); Creatinine Clr Calc Pharmacy 108.6 ml/min; Glucose 138.0 mg/dl (70-99(Fasting)); Potassium 4.4 mmol/L (3.5-5.1); Sodium 142.0 mmol/L (136-145)
[2024-10-07] MEDS: ONDANSETRON INJ 2 MG/ML 2 ML VIAL IV PRN (13:03)
--- NOTE | 2024-10-07 13:47 | Orthopedic Progress Note ---
Date of Service October 07, 2024 Assessment & Plan (1) Dehiscence of operative wound: (2) Status post total knee replacement, right: Plan 79-year-old male POD# 1 s/p right knee wound I&D and closure subsequent to fall that dehisced his surgical wound for a right total knee arthroplasty. He is doing well overall this morning. Pain is well-controlled. He is neurologically intact. Plan: 1. DVT prophylaxis w/ mobilization/ambulation. Routine pentecostalism of his previous anticoagulation will be sufficient for DVT prophylaxis. 2. PT/OT as tolerated. They will need to determine appropriateness for discharge location. There is an expected need for nursing home facility vs. acute inpatient rehab facility. 3. WBAT on the RLE with assistive device as needed. Knee immobilizer to be donned when out of bed. The patient is going to need assistance donning and d offing the knee immobilizer multiple times daily. Gentle range of motion as tolerated. 4. Pain control doing well with current pain regimen. 5. Continue perioperative antibiotic prophylaxis for treatment of cellulitis. 6. Dressing change pending subsequent evaluations by orthopedics. 7. Disposition - pending PT/OT and overall progress. 8. F/u 2-3 weeks post-op w/ orthopedics (Dr. Lopez's team) for suture removal. Subjective Patient is POD# 1 s/p right knee wound I&D and closure by Dr. Myers on 10/06/2024. Patient says his pain is well-controlled this morning. Denies CP, SOB, N/V, RLE paresthesia. He understands that we will be having him wear a knee immobilizer for ambulation. Review of Systems All systems reviewed & are unremarkable except as noted in HPI & below. Physical Exam GENERAL: AA&Ox3, NAD. Pleasant, affect is calm. Lying in bed and appears comfortable. RESPIRATORY: Normal respiratory effort with no signs of distress. CHEST/AXILLA: Chest movement symmetrical. No deformities noted. CARDIOVASCULAR: No edema noted. SKIN: [place], warm and dry. MS/EXTREMITY: Right knee dressing & LINDSEY wrap c/d/i. + ankle dorsi/plantarflexion. NVI distally. Calf soft/NT. PT/DP pulses intact, 2+. Results & Data Results & Data Laboratory Results Laboratory Results - last 48 hr 10/05/24 10/05/24 10/05/24 14:06 14:12 14:28 WBC 8.04 RBC 3.92 L Hgb 10.3 L POC Hgb 10.5 L Hct 32.9 L POC Hct 31 L MCV 83.9 MCH 26.3 MCHC 31.3 L RDW Std Deviation 46.7 H RDW Coeff of Monique 15.4 H Plt Count 287 MPV 9.2 L Immature Gran % (Auto) 0.5 Neut % (Auto) 69.4 Lymph % (Auto) 18.5 [place] % (Auto) 8.7 Eos % (Auto) 2.5 Baso % (Auto) 0.4 Neut # (Auto) 5.58 Lymph # (Auto) 1.49 [place] # (Auto) 0.70 H Eos # (Auto) 0.20 Baso # (Auto) 0.03 Immature Gran # (Auto) 0.04 Absolute Nucleated RBC Nucleated RBC % (auto) PT 31.6 H POC INR 4.0 H INR 3.2 H APTT 44 H PTT Ratio 1.6 POC Sodium 138 Sodium 139 POC Potassium 4.3 Potassium 4.3 POC Chloride 103 Chloride 104 Carbon Dioxide 28 POC Total CO2 26 Anion Gap 7 POC Anion Gap 14.0 L POC BUN 17 BUN 20 Creatinine 1.08 POC Creatinine 1.2 Est Cr Clr Drug Dosing 86.5 eGFR 70.24 BUN/Creatinine Ratio 18.5 Glucose 133 H POC Glucose (other) 135 H Calcium 9.1 POC Ioniz Calcium Jae 1.15 Total Bilirubin 0.5 AST 21 ALT 9 Alkaline Phosphatase 92 C-Reactive Protein Total Protein 6.6 Albumin 3.3 L Globulin 3.3 Albumin/Globulin Ratio 1.0 Lipase 21 Urine Color Urine Appearance Urine pH Ur Specific [place] Urine Protein Urine Glucose (UA) Urine Ketones Urine Blood Urine Nitrite Urine Bilirubin Urine Urobilinogen Ur Leukocyte Esterase Urine WBC (Auto) Urine RBC (Auto) U Hyaline Cast (Auto) U Epithel Cells (Auto) Urine Bacteria (Auto) Urine Comment Blood Type O Positive Antibody Screen NEGATIVE 10/05/24 10/05/24 10/05/24 15:55 15:59 18:16 WBC RBC Hgb 10.2 L POC Hgb 10.9 L Hct 33.3 L POC Hct 32 L MCV MCH MCHC RDW Std Deviation RDW Coeff of Monique Plt Count MPV Immature Gran % (Auto) Neut % (Auto) Lymph % (Auto) [place] % (Auto) Eos % (Auto) Baso % (Auto) Neut # (Auto) Lymph # (Auto) [place] # (Auto) Eos # (Auto) Baso # (Auto) Immature Gran # (Auto) Absolute Nucleated RBC Nucleated RBC % (auto) PT POC INR INR APTT PTT Ratio POC Sodium 138 Sodium POC Potassium 4.3 Potassium POC Chloride 103 Chloride Carbon Dioxide POC Total CO2 23 L Anion Gap POC Anion Gap 18.0 POC BUN 18 BUN Creatinine POC Creatinine 1.1 Est Cr Clr Drug Dosing eGFR BUN/Creatinine Ratio Glucose POC Glucose (other) 149 H Calcium POC Ioniz Calcium Jae 1.08 L Total Bilirubin AST ALT Alkaline Phosphatase C-Reactive Protein Total Protein Albumin Globulin Albumin/Globulin Ratio Lipase Urine Color Yellow Urine Appearance Clear Urine pH 6.0 Ur Specific [place] > 1.045 H Urine Protein Trace H Urine Glucose (UA) Negative Urine Ketones Trace H Urine Blood Trace H Urine Nitrite Negative Urine Bilirubin Negative Urine Urobilinogen Negative Ur Leukocyte Esterase Negative Urine WBC (Auto) 0-5 Urine RBC (Auto) 6-10 H U Hyaline Cast (Auto) 0-2 U Epithel Cells (Auto) 0-2 Urine Bacteria (Auto) None Seen Urine Comment Blood Type Antibody Screen 10/06/24 10/07/24 06:35 05:51 WBC 7.33 9.29 RBC 3.15 L 2.70 L Hgb 8.3 L 7.1 L POC Hgb Hct 26.5 L 23.3 L POC Hct MCV 84.1 86.3 MCH 26.3 26.3 MCHC 31.3 L 30.5 L RDW Std Deviation 47.1 H 48.3 H RDW Coeff of Monique 15.5 H 15.5 H Plt Count 243 227 MPV 9.1 L 9.5 Immature Gran % (Auto) Neut % (Auto) Lymph % (Auto) [place] % (Auto) Eos % (Auto) Baso % (Auto) Neut # (Auto) Lymph # (Auto) [place] # (Auto) Eos # (Auto) Baso # (Auto) Immature Gran # (Auto) Absolute Nucleated RBC 0.02 Nucleated RBC % (auto) 0.2 PT 12.0 POC INR INR 1.1 APTT PTT Ratio POC Sodium Sodium 141 142 POC Potassium Potassium 4.1 4.4 POC Chloride Chloride 106 108 H Carbon Dioxide 29 31 POC Total CO2 Anion Gap 6 3 POC Anion Gap POC BUN BUN 23 24 H Creatinine 1.09 0.86 POC Creatinine Est Cr Clr Drug Dosing 85.7 108.6 eGFR 69.47 88.63 BUN/Creatinine Ratio 21.1 H 27.9 H Glucose 131 H 138 H POC Glucose (other) Calcium 8.4 L 8.1 L POC Ioniz Calcium Jae Total Bilirubin 0.4 AST 14 ALT 7 Alkaline Phosphatase 72 C-Reactive Protein 4.97 H Total Protein 5.6 L Albumin 3.0 L Globulin 2.6 Albumin/Globulin Ratio 1.2 Lipase Urine Color Urine Appearance Urine pH Ur Specific [place] Urine Protein Urine Glucose (UA) Urine Ketones Urine Blood Urine Nitrite Urine Bilirubin Urine Urobilinogen Ur Leukocyte Esterase Urine WBC (Auto) Urine RBC (Auto) U Hyaline Cast (Auto) U Epithel Cells (Auto) Urine Bacteria (Auto) Urine Comment Blood Type Antibody Screen Diagnostic Findings . PG Care Time/CCT Total # of Minutes Spent Total Time Spent with Patient: Total time spent is greater than 50% in coordination of care (as documented) at patient's floor/unit and/or counseling patient: C[place] [address] Post Operative Follow-Up Patient Type Established History Problem Focused Exam Problem Focused Medical Decision Making Straight Forward Diagnoses Dehiscence of operative wound T81.31XA Status post total knee replacement, right Z96.651
--- NOTE | 2024-10-07 16:15 | Hospitalist Progress Note ---
"Date of Service October 07, 2024 Assessment & Plan (1) Dehiscence of surgical wound: Plan This is a 79-year-old male who presented on 09/27 for ambulatory dysfunction. Recent R TKA on 09/[address] Lopez. Originally discharged home on home health on 09/25, but patient developed worsening of pain and ambulatory dysfunction. Cellulitis appears to be improving on antibiotics. #Dehiscence of surigical wound #acute blood loss anemia secondary to fall. S/P washout. Patient showing no active signs of sepsis. will continue antibiotics hemoglobin dropped from fall. #Right lower extremity cellulitis much improved -on rocephin.. Last day abx initially planned for 10/07. However with this injury antibiotics will be extended. -Blood cultures have been negative -patient is clinically doing well. #Recent history of right TKA | ambulatory dysfunction - Ortho consulted for washout. Continue bowel regimen #History of DVT/pulmonary embolism No evidence of DVT on RLE Doppler on recent discharge. vitamin k given due to bleeding. #Depression/anxiety Continue duloxetine, aripiprazole #GERD Continue PPI Admission and Anticipated Discharge Date Admission Date: October 05, 2024 Subjective Patient reports no new symptoms Review of Systems Review of Systems: All systems reviewed & are unremarkable except as noted in HPI & below Physical Exam Constitutional: well developed and well nourished Eyes: PERRL, conjunctivae normal, anicteric sclerae ENMT: external ear and nose normal, oropharynx normal Neck: trachea midline, no thyromegaly Respiratory: normal respiratory effort, lungs clear to auscultation Cardiovascular: RRR, no murmur, no edema Gastrointestinal (Abdomen): normal bowel sounds, soft, nontender, no hepatosplenomegaly Skin: Trauma: + evidence of skin trauma Neurologic: PERRL, EOMI, accommodation nl, no face palsy, no dysarthria Psychiatric: A+Ox3, euthymic affect Lymphatic: no cervical or axillary lymphadenopathy Results & Data Results & Data Vital Signs (Past 12 Hours) Vital Signs Temp Pulse Resp BP Pulse Ox O2 Del Method 10/07/24 15:01 36.4 C L 90 16 137/63 96 Room Air 10/07/24 07:48 Room Air 10/07/24 07:17 36.4 C L 80 18 146/69 H 94 Room Air 10/07/24 04:19 36.6 C 82 18 141/63 H 97 Room Air PG Care Time/CCT Total # of Minutes Spent Total Time Spent with Patient: Total time spent is greater than 50% in coordination of care (as documented) at patient's floor/unit and/or counseling patient: Coding Level of Care Code 38740 SUB INP/OBS CARE 3/50MIN Diagnoses Postoperative wound dehiscence, initial encounter T81.31XA Encounter type: initial encounter (1) Dehiscence of surgical wound Encounter type: initial encounter Qualified Code(s): T81.31XA - Disruption of external operation (surgical) wound, not elsewhere classified, initial encounter"
[2024-10-07 16:49] LABS: Hematocrit (blood only) 26.6 % (42.0-52.0); Hemoglobin 8.0 g/dl (14.0-18.0)
[2024-10-08 06:14] LABS: Anion Gap 3.0 (3-11); Blood Urea Nitrogen 20.0 mg/dl (6-23); Calcium 8.0 mg/dl (8.6-10.3); Carbon Dioxide 31.0 mmol/L (21-32); Chloride 106.0 mmol/L (98-107); Creatinine Clr Calc Pharmacy 96.3 ml/min; Glucose 110.0 mg/dl (70-99(Fasting)); Potassium 4.0 mmol/L (3.5-5.1); Sodium 140.0 mmol/L (136-145)
[2024-10-08 06:23] LABS: Hematocrit (blood only) 22.7 % (42.0-52.0); Hemoglobin 6.7 g/dl (14.0-18.0); Mean Corpuscular Hemoglobin 26.0 pg (25.0-34.0); Mean Corpuscular Volume 88.0 fL (80.0-100.0); Platelet Count 206 K/uL (130-400); RDW Standard Deviation 49.6 fL (36.4-46.3); Red Blood Count 2.58 M/uL (4.70-6.10); White Blood Count 7.15 K/ul (4.8-10.8)
[2024-10-08] MEDS ORDERED: SODIUM CHLORIDE 0.9% 100 ML IV PRN (06:30)
--- NOTE | 2024-10-08 09:31 | Orthopedic Progress Note ---
Date of Service October 08, 2024 Assessment & Plan (1) Dehiscence of operative wound: * Continue Current Treatment * Disposition: TBD, high recommend and anticipate rehab/SNF given patient difficultly with self care and concerns of safe living environment * Daily treatment: Physical Therapy/ Occupational Therapy per protocol * Weight bearing status: WBAT in KI * Recommend KI when ambulatory, may remove at rest. * Gentle knee flexion ROM ok * Continue to monitor for ABLA * Pain control * DVT prophylaxis, ASA/Eliquis * Office/hospital f/u 2 weeks for progress check and staple/suture removal * Remainder care per primary team * Stable for discharge from ortho procedure standpoint, further planning per primary team (2) Status post total knee replacement, right: Subjective .Active Problems: * 09/19 R TKA, subsequent wound dehiscence * 10/06 R TKA incision washout, closure POD 2 79 y/o male s/p R TKA incision washout/closure. Doing well overall, pain managed and improved function. Denies fever/chills, chest pain/SOB, nausea/vomiting. Otherwise no complaints. Review of Systems All systems reviewed & are unremarkable except as noted in HPI & below. Physical Exam . * General: Alert and oriented, no acute distress * Constitutional: well-developed, well-nourished. * Respiratory: Normal respiratory effort, no distress * Gastrointestinal: No tenderness to palpation, no rigidity or guarding. * Skin: No rash or lesion. * Neurologic: Grossly normal * Musculoskeletal: right knee surgical dressing CDI, not removed for exam. Otherwise no obvious deformity or overlying skin changes RLE. Diffuse TTP distal thigh and knee region. Otherwise no specific tenderness of proximal thigh, lower leg, foot/ankle. AROM knee flexion not assessed. AROM foot/ankle intact. Sensation intact plantar/dorsal foot. Brisk capillary refill. Results & Data Results & Data Laboratory Results . Diagnostic Findings . PG Care Time/CCT Total # of Minutes Spent Total Time Spent with Patient: Total time spent is greater than 50% in coordination of care (as documented) at patient's floor/unit and/or counseling patient: Coding Level of Care Code 73866 Post Operative Follow-Up Diagnoses Dehiscence of operative wound T81.31XA Status post total knee replacement, right Z96.651
--- NOTE | 2024-10-08 22:47 | Hospitalist Progress Note ---
"Date of Service October 08, 2024 Assessment & Plan (1) Dehiscence of surgical wound: Plan This is a 79-year-old male who presented on 09/27 for ambulatory dysfunction. Recent R TKA on 09/[address] Lopez. Originally discharged home on home health on 09/25, but patient developed worsening of pain and ambulatory dysfunction. Cellulitis appears to be improving on antibiotics. #Dehiscence of surigical wound #acute blood loss anemia secondary to fall. S/P washout. Patient showing no active signs of sepsis. will stop antibiotics after today's dose. Patient completed treatment of cellulits and received over 24 hours prophylatic dose. hemoglobin dropped from fall. #Right lower extremity cellulitis much improved -on rocephin.. completed course on 10/08 However with this injury antibiotics will be extended. -Blood cultures have been negative -patient is clinically doing well. #Recent history of right TKA | ambulatory dysfunction - Ortho consulted for washout. Continue bowel regimen #History of DVT/pulmonary embolism No evidence of DVT on RLE Doppler on recent discharge. vitamin k given due to bleeding. #Depression/anxiety Continue duloxetine, aripiprazole #GERD Continue PPI Admission and Anticipated Discharge Date Admission Date: October 05, 2024 Subjective Patient reports doing well, no new complaints. Physical Exam Constitutional: well developed and well nourished Eyes: PERRL, conjunctivae normal, anicteric sclerae ENMT: external ear and nose normal, oropharynx normal Neck: trachea midline, no thyromegaly Respiratory: normal respiratory effort, lungs clear to auscultation Cardiovascular: RRR, no murmur, no edema Gastrointestinal (Abdomen): normal bowel sounds, soft, nontender, no hepatosplenomegaly Skin: Trauma: + evidence of skin trauma Neurologic: PERRL, EOMI, accommodation nl, no face palsy, no dysarthria Psychiatric: A+Ox3, euthymic affect Lymphatic: no cervical or axillary lymphadenopathy Results & Data Results & Data Vital Signs (Past 12 Hours) Vital Signs Temp Pulse Pulse Resp BP BP Pulse Ox 10/08/24 20:20 10/08/24 19:57 36.9 C 71 18 151/61 H 97 10/08/24 16:49 36.6 C 71 17 137/70 97 10/08/24 11:33 36.7 C 70 17 135/70 96 O2 Del Method 10/08/24 20:20 Room Air 10/08/24 19:57 Room Air 10/08/24 16:49 Room Air 10/08/24 11:33 PG Care Time/CCT Total # of Minutes Spent Total Time Spent with Patient: Total time spent is greater than 50% in coordination of care (as documented) at patient's floor/unit and/or counseling patient: Coding Level of Care Code 81472 SUB INP/OBS CARE 3/50MIN Diagnoses Postoperative wound dehiscence, initial encounter T81.31XA Encounter type: initial encounter (1) Dehiscence of surgical wound Encounter type: initial encounter Qualified Code(s): T81.31XA - Disruption of external operation (surgical) wound, not elsewhere classified, initial encounter"
[2024-10-09 05:54] LABS: Hematocrit (blood only) 26.1 % (42.0-52.0); Hemoglobin 8.0 g/dl (14.0-18.0); Mean Corpuscular Hemoglobin 26.9 pg (25.0-34.0); Mean Corpuscular Volume 87.9 fL (80.0-100.0); Platelet Count 201 K/uL (130-400); RDW Standard Deviation 48.9 fL (36.4-46.3); Red Blood Count 2.97 M/uL (4.70-6.10); White Blood Count 5.55 K/ul (4.8-10.8)
[2024-10-09 06:09] LABS: Anion Gap 3.0 (3-11); Blood Urea Nitrogen 20.0 mg/dl (6-23); Calcium 8.2 mg/dl (8.6-10.3); Carbon Dioxide 32.0 mmol/L (21-32); Chloride 105.0 mmol/L (98-107); Creatinine Clr Calc Pharmacy 94.3 ml/min; Glucose 97.0 mg/dl (70-99(Fasting)); Potassium 3.9 mmol/L (3.5-5.1); Sodium 140.0 mmol/L (136-145)
--- NOTE | 2024-10-09 09:01 | Orthopedic Progress Note ---
Date of Service October 09, 2024 Assessment & Plan (1) Dehiscence of operative wound: * Continue Current Treatment * Disposition: TBD, high recommend and anticipate rehab/SNF given patient difficultly with self care and concerns of safe living environment * Daily treatment: Physical Therapy/ Occupational Therapy per protocol * Weight bearing status: WBAT in KI * Recommend KI when ambulatory, may remove at rest. * Gentle knee flexion ROM ok * Dressing changed, may change PRN. * Continue to monitor for ABLA * Pain control * DVT prophylaxis, ASA/Eliquis * Office/hospital f/u 2 weeks for progress check and staple/suture removal * Remainder care per primary team * Stable for discharge from ortho procedure standpoint, further planning per primary team (2) Status post total knee replacement, right: Subjective .Active Problems: * 09/19 R TKA, subsequent wound dehiscence * 10/06 R TKA incision washout, closure POD 3 79 y/o male s/p R TKA incision washout/closure. Doing well overall, pain managed and improved function. Denies fever/chills, chest pain/SOB, nausea/vomiting. Otherwise no complaints. Review of Systems All systems reviewed & are unremarkable except as noted in HPI & below. Physical Exam * General: Alert and oriented, no acute distress * Constitutional: well-developed, well-nourished. * Respiratory: Normal respiratory effort, no distress * Gastrointestinal: No tenderness to palpation, no rigidity or guarding. * Skin: No rash or lesion. * Neurologic: Grossly normal * Musculoskeletal: right knee surgical dressing CDI, removed today, incision CDI no active drainage or dehiscence. Otherwise no obvious deformity or overlying skin changes RLE. Diffuse TTP distal thigh and knee region. Otherwise no specific tenderness of proximal thigh, lower leg, foot/ankle. AROM knee flexion not assessed. AROM foot/ankle intact. Sensation intact plantar/dorsal foot. Brisk capillary refill. Results & Data Results & Data Laboratory Results . Diagnostic Findings . PG Care Time/CCT Total # of Minutes Spent Total Time Spent with Patient: Total time spent is greater than 50% in coordination of care (as documented) at patient's floor/unit and/or counseling patient: Coding Level of Care Code 29549 Post Operative Follow-Up Diagnoses Dehiscence of operative wound T81.31XA Status post total knee replacement, right Z96.651
--- NOTE | 2024-10-09 10:32 | Electrocardiogram Report ---
Test Reason : Blood Pressure : */* mmHG Vent. Rate : 101 BPM Atrial Rate : 101 BPM P-R Int : 178 ms QRS Dur : 76 ms QT Int : 342 ms P-R-T Axes : 44 -10 51 degrees QTcB Int : 443 ms Sinus tachycardia Low voltage QRS Poor R wave progression, consider anterior MN vs. lead placement vs. LVH Abnormal ECG When compared with ECG of 27-Sep-2024 10:51, Premature supraventricular complexes are no longer Present Vent. rate has increased by 33 bpm Minimal criteria for Anterior infarct are now Present Confirmed by Liam Orellana ([id number]) on 10/09/2024 10:32:29 AM Referred By: REFERRED SELF Confirmed By: Liam Orellana
--- NOTE | 2024-10-09 23:14 | Hospitalist Progress Note ---
"Date of Service October 09, 2024 Assessment & Plan (1) Dehiscence of surgical wound: Plan This is a 79-year-old male who presented on 09/27 for ambulatory dysfunction. Recent R TKA on 09/[address] Lopez. Originally discharged home on home health on 09/25, but patient developed worsening of pain and ambulatory dysfunction. Cellulitis appears to be improving on antibiotics. #Dehiscence of surigical wound #acute blood loss anemia secondary to fall. S/P Right Knee Wound Irrigation and Debridement and Closure Patient showing no active signs of sepsis. Patient completed treatment of cellulitis and received over 24 hours prophylactic dose. hemoglobin dropped from fall. #Right lower extremity cellulitis much improved -on rocephin.. completed course on 10/08 However with this injury antibiotics will be extended. -Blood cultures have been negative -patient is clinically doing well. #Recent history of right TKA | ambulatory dysfunction - Ortho consulted for washout. Continue bowel regimen #History of DVT/pulmonary embolism No evidence of DVT on RLE Doppler on recent discharge. vitamin k given due to bleeding. #Depression/anxiety Continue duloxetine, aripiprazole #GERD Continue PPI dispoL SNF as inpatient rehab was denied after Peer to Peer Admission and Anticipated Discharge Date Admission Date: October 05, 2024 Subjective Patient reports feeling well. Pain is controlled. Physical Exam Constitutional: well developed and well nourished Eyes: PERRL, conjunctivae normal, anicteric sclerae ENMT: external ear and nose normal, oropharynx normal Neck: trachea midline, no thyromegaly Respiratory: normal respiratory effort, lungs clear to auscultation Cardiovascular: RRR, no murmur, no edema Gastrointestinal (Abdomen): normal bowel sounds, soft, nontender, no hepatosplenomegaly Skin: Trauma: + evidence of skin trauma Neurologic: PERRL, EOMI, accommodation nl, no face palsy, no dysarthria Psychiatric: A+Ox3, euthymic affect Lymphatic: no cervical or axillary lymphadenopathy Results & Data Results & Data Vital Signs (Past 12 Hours) Vital Signs Temp Pulse Resp BP Pulse Ox O2 Del Method 10/09/24 20:05 Room Air 10/09/24 19:46 36.5 C 74 18 145/67 H 100 Room Air 10/09/24 15:02 36.6 C 73 18 147/74 H 97 Room Air PG Care Time/CCT Total # of Minutes Spent Total Time Spent with Patient: Total time spent is greater than 50% in coordination of care (as documented) at patient's floor/unit and/or counseling patient: Coding Level of Care Code 96749 SUB INP/OBS CARE 3/50MIN Diagnoses Postoperative wound dehiscence, initial encounter T81.31XA Encounter type: initial encounter (1) Dehiscence of surgical wound Encounter type: initial encounter Qualified Code(s): T81.31XA - Disruption of external operation (surgical) wound, not elsewhere classified, initial encounter"
--- NOTE | 2024-10-10 08:32 | Hospitalist Progress Note ---
"Date of Service October 10, 2024 Assessment & Plan (1) Dehiscence of surgical wound: Plan This is a 79-year-old male who presented on 09/27 for ambulatory dysfunction. Recent R TKA on 09/[address] Lopez. Originally discharged home on home health on 09/25, but patient developed worsening of pain and ambulatory dysfunction. Cellulitis appears to be improving on antibiotics. #Dehiscence of surigical wound #acute blood loss anemia secondary to fall. S/P Right Knee Wound Irrigation and Debridement and Closure Patient showing no active signs of sepsis. Patient completed treatment of cellulitis and received over 24 hours prophylactic dose. hemoglobin dropped from fall. #History of DVT/pulmonary embolism Events of the a.m. of 10/10/2024 PE was ruled out, starting sc heparin and discussion with coag clinic regarding rationale for warfarin over Xarelto vitamin k was given due to bleeding. #Right lower extremity cellulitis much improved -on rocephin.. completed course on 10/08 However with this injury antibiotics will be extended. -Blood cultures have been negative -patient is clinically doing well. #Recent history of right TKA | ambulatory dysfunction - Ortho consulted for washout. Continue bowel regimen #Depression/anxiety Continue duloxetine, aripiprazole #GERD Continue PPI dispoL SNF as inpatient rehab was denied after Peer to Peer Admission and Anticipated Discharge Date Admission Date: October 05, 2024 Subjective Patient felt dizzy and lightheaded this morning. He was not hypotensive. He is slightly tachycardic. His hemoglobin was stable on recheck. Patient is a history of DVT PE and is off anticoagulation due to his recent surgery for will check CT angiography to determine if he is got recurrence of venous th romboembolism. Physical Exam Physical Exam: He is awake and alert feels not well Card exam is tachycardic and regular Lungs are clear without wheezes or crackles Abdomen is NABS soft and nontender Right leg has a elastic wrap dressing in place with some minor edema Results & Data Results & Data Vital Signs (Past 12 Hours) Vital Signs Temp Pulse Resp BP Pulse Ox O2 Del Method 10/10/24 07:09 97.9 F 75 16 130/74 96 Room Air Laboratory Results Reviewed CBC reviewed chemistry PG Care Time/CCT Total # of Minutes Spent Total Time Spent with Patient: Total time spent is greater than 50% in coordination of care (as documented) at patient's floor/unit and/or counseling patient: Coding Level of Care Code 73892 SUB INP/OBS CARE 350MIN Diagnoses Postoperative wound dehiscence, initial encounter T81.31XA Encounter type: initial encounter (1) Dehiscence of surgical wound Encounter type: initial encounter Qualified Code(s): T81.31XA - Disruption of external operation (surgical) wound, not elsewhere classified, initial encounter"
--- NOTE | 2024-10-10 09:48 | Orthopedic Progress Note ---
Date of Service October 10, 2024 Assessment & Plan (1) Dehiscence of operative wound: * Continue Current Treatment * Disposition: TBD, high recommend and anticipate rehab/SNF given patient difficultly with self care and concerns of safe living environment * Daily treatment: Physical Therapy/ Occupational Therapy per protocol * Weight bearing status: WBAT in KI * Recommend KI when ambulatory, may remove at rest. * Gentle knee flexion ROM ok * Dressing changed, may change PRN. * Continue to monitor for ABLA * Pain control * DVT prophylaxis, ASA/Eliquis * Office/hospital f/u 2 weeks for progress check and staple/suture removal * Remainder care per primary team * Stable for discharge from ortho procedure standpoint, further planning per primary team (2) Status post total knee replacement, right: Subjective .Active Problems: * 09/19 R TKA, subsequent wound dehiscence * 10/06 R TKA incision washout, closure POD 4 79 y/o male s/p R TKA incision washout/closure. Doing well overall. Sleeping soundly at time of exam. No new reported events overnight. Review of Systems All systems reviewed & are unremarkable except as noted in HPI & below. Physical Exam . * General: Alert and oriented, no acute distress * Constitutional: well-developed, well-nourished. * Respiratory: Normal respiratory effort, no distress * Gastrointestinal: No tenderness to palpation, no rigidity or guarding. * Skin: No rash or lesion. * Neurologic: Grossly normal * Musculoskeletal: right knee surgical dressing CDI, removed today, incision CDI no active drainage or dehiscence. Otherwise no obvious deformity or overlying skin changes RLE. Diffuse TTP distal thigh and knee region. Otherwise no specific tenderness of proximal thigh, lower leg, foot/ankle. AROM knee flexion not assessed. AROM foot/ankle intact. Sensation intact plantar/dorsal foot. Brisk capillary refill. Results & Data Results & Data Laboratory Results . Diagnostic Findings . PG Care Time/CCT Total # of Minutes Spent Total Time Spent with Patient: Total time spent is greater than 50% in coordination of care (as documented) at patient's floor/unit and/or counseling patient: Coding Level of Care Code 04927 Post Operative Follow-Up Diagnoses Dehiscence of operative wound T81.31XA Status post total knee replacement, right Z96.651
[2024-10-10 09:52] LABS: Hematocrit (blood only) 30.4 % (42.0-52.0); Hemoglobin 8.9 g/dl (14.0-18.0); Mean Corpuscular Hemoglobin 25.9 pg (25.0-34.0); Mean Corpuscular Volume 88.4 fL (80.0-100.0); Platelet Count 234 K/uL (130-400); RDW Standard Deviation 48.7 fL (36.4-46.3); Red Blood Count 3.44 M/uL (4.70-6.10); White Blood Count 5.72 K/ul (4.8-10.8)
[2024-10-10 10:06] LABS: Anion Gap 3.0 (3-11); Blood Urea Nitrogen 19.0 mg/dl (6-23); Calcium 8.7 mg/dl (8.6-10.3); Carbon Dioxide 34.0 mmol/L (21-32); Chloride 103.0 mmol/L (98-107); Creatinine Clr Calc Pharmacy 102.6 ml/min; Glucose 130.0 mg/dl (70-99(Fasting)); Potassium 4.0 mmol/L (3.5-5.1); Sodium 140.0 mmol/L (136-145)
[2024-10-10] MEDS: OPTIRAY 320 125ml IV ONE (12:22)
--- NOTE | 2024-10-10 12:38 | CT Scan Report ---
CT angio chest PE protocol CT DOSE: 942.28 mGy.cm HISTORY: PE. TECHNIQUE: Multiple CTA images of the chest were obtained after the intravenous administration of 120 ml Optiray. Coronal and sagittal MIPS were obtained from the axial data set and were submitted for review. All measurements were obtained according to NASCET criteria. A dose lowering technique was u tilized adhering to the principles of ALARA. COMPARISON STUDY: 10/05/2024 FINDINGS: There is no pulmonary consolidation or pleural effusion. No pneumothorax. No enlarged adeno pratima. No pericardial effusion. There are moderate coronary artery calcifications. No thoracic aortic dissection or aneurysm. No pulmonary embolism seen. No acute osseous findings. Mild superficial soft tissue stranding at the soft tissues of the anterior right shoulder is mildly improved. IMPRESSION: No pulmonary embolism or pneumonia seen. ACT 112: Negative or not required by law. The above report was generated using voice recognition software. It may contain grammatical, syntax o r spelling errors. Electronically signed by: Usman Ward M.D. 10/10/2024 12:35 PM
[2024-10-10 15:05] VITALS: RESP 16
--- NOTE | 2024-10-10 15:11 | Hospitalist Progress Note ---
"Date of Service October 10, 2024 Assessment & Plan (1) Dehiscence of surgical wound: Plan This is a 79-year-old male who presented on 09/27 for ambulatory dysfunction. Recent R TKA on 09/[address] Lopez. Originally discharged home on home health on 09/25, but patient developed worsening of pain and ambulatory dysfunction. Cellulitis appears to be improving on antibiotics. #Dehiscence of surigical wound #acute blood loss anemia secondary to fall. S/P Right Knee Wound Irrigation and Debridement and Closure Patient showing no active signs of sepsis. Patient completed treatment of cellulitis and received over 24 hours prophylactic dose. hemoglobin dropped from fall. #History of DVT/pulmonary embolism Events of the a.m. of 10/10/2024 PE was ruled out, starting sc heparin and discussion with [facility] clinic regarding rationale for warfarin over Xarelto,. in their records did have a VTE on Xarelto, therefor chose warfarin, since is anemic will start heparin sc and then re add warfarin vitamin k was given due to bleeding. #Right lower extremity cellulitis much improved -on rocephin.. completed course on 10/08 However with this injury antibiotics will be extended. -Blood cultures have been negative -patient is clinically doing well. #Recent history of right TKA | ambulatory dysfunction - Ortho consulted for washout. Continue bowel regimen #Depression/anxiety Continue duloxetine, aripiprazole #GERD Continue PPI dispoL SNF as inpatient rehab was denied after Peer to Peer Admission and Anticipated Discharge Date Admission Date: October 05, 2024 Results & Data Results & Data Vital Signs (Past 12 Hours) Vital Signs Temp Pulse Resp BP BP Pulse Ox O2 Del Method 10/10/24 15:02 97.9 F 75 16 142/67 H 97 Room Air 10/10/24 08:39 97.5 F L 99 H 20 136/65 93 Room Air 10/10/24 08:35 145/70 H 10/10/24 08:00 Room Air 10/10/24 07:09 97.9 F 75 16 130/74 96 Room Air PG Care Time/CCT Total # of Minutes Spent Total Time Spent with Patient: Total time spent is greater than 50% in coordination of care (as documented) at patient's floor/unit and/or counseling patient: Coding Level of Care Code None Diagnoses Postoperative wound dehiscence, initial encounter T81.31XA Encounter type: initial encounter (1) Dehiscence of surgical wound Encounter type: initial encounter Qualified Code(s): T81.31XA - Disruption of external operation (surgical) wound, not elsewhere classified, initial encounter"
[2024-10-10] MEDS: WARFARIN SOD 5 MG TAB PO SCH (16:17)
[2024-10-10] MEDS: HEPARIN SOD 5,000 UNIT/0.5 ML VIAL SQ SCH (20:33)
[2024-10-11 06:33] LABS: INR 1.0 (0.9-1.1); Prothrombin Time 10.8 Seconds (9.0-12.0)
[2024-10-11 07:47] VITALS: BP 154/72; PULSE 73; TEMP 97.5; O2SAT 100
--- NOTE | 2024-10-11 11:48 | Discharge Summary ---
"Discharge Summary Date of Service October 11, 2024 Principal Dx & Hospital Course #1 = Principal Diagnosis (1) Dehiscence of surgical wound: Plan This is a 79-year-old male who presented on 09/27 for ambulatory dysfunction. Recent R TKA on 09/[address] Lopez. Originally discharged home on home health on 09/25, but patient developed worsening of pain and ambulatory dysfunction. Cellulitis appears to be improving on antibiotics. #Dehiscence of surigical wound #acute blood loss anemia secondary to fall. S/P Right Knee Wound Irrigation and Debridement and Closure Patient showing no active signs of sepsis. Patient completed treatment of cellulitis and received over 24 hours prophylactic dose. hemoglobin dropped from fall. #History of DVT/pulmonary embolism Events of the a.m. of 10/10/2024 PE was ruled out, starting sc heparin and discussion with [facility] clinic regarding rationale for warfarin over Xarelto,. in their records did have a VTE on Xarelto, therefor chose warfarin, since is anemic will start heparin sc and then re add warfarin vitamin k was given due to bleeding. #Right lower extremity cellulitis much improved -on rocephin.. completed course on 10/08 However with this injury antibiotics will be extended. -Blood cultures have been negative -patient is clinically doing well. #Recent history of right TKA | ambulatory dysfunction - Ortho consulted for washout. Continue bowel regimen #Depression/anxiety Continue duloxetine, aripiprazole #GERD Continue PPI dispoL SNF as inpatient rehab was denied after Peer to Peer Admission HPI Per Admitting Provider This is a pleasant 79-year-old male presenting with right knee and right shoulder pain following a mechanical fall earlier today. The patient was recent ly discharged from the hospital after treatment for altered mental status and right lower extremity cellulitis. He has a past surgical history significant for a right total knee arthroplasty (TKA) performed on 09/19/[address] Lopez. Discharge instructions included the use of a walker for ambulation. The patient reported that his current apartment setup was unsafe, prompting a plan to return to his wifes apartment. However, he experienced a mechanical fall while walking without his walker during this transition. He denies loss of consciousness, however he did have skin laceration to his right knee and right shoulder. He has extensive right knee wound dehiscene with bleeding and soft tissue swelling to the right should region. Ortho is alreqdy consulted. Medicine called for admission. Discharge Plan Discharge Items Patient Disposition: Transfer [facility] Reason For Visit: FALL Condition on Discharge: Serious Follow-up/Referrals: Henry Prieto DO [Primary Care Provider] - Theresa Major Assembly Inspector Provider Instructions: General Orthopedic Discharge Instructions Activity: WBAT in knee immobilizer Diet: You may resume previous diet. Medications: 1. Narcotic You will likely be sent home from the hospital with a prescription for the narcotic pain medication. Take it as needed. Side effects most commonly include nausea and constipation 2. Resume previous home medications unless otherwise instructed Dressing Care: If there is a soft dressing in place then leave the dressing intact for 5 days. On the you may remove the dressing and leave the stitches open to air or cover them with band-aids. Keep the incision clean and dry If there is a hard splint then leave it in place until your follow-up visit in 2 weeks Showering: If you have a soft dressing you may shower right after the surgery but do not get the dressing wet. After the dressing is removed on the 5th day then you can get the stitches wet in the shower, but do not soak or scrub them. Let the soapy shower water run over the stitches and pat them dry. If you have a hard splint, cover it in a plastic bag and keep it dry. Do not remove it until the follow up appointment. Things To Watch For: 1. Drainage from the incision site that occurs more than one week after your surgery. 2. Increased redness at the incision site. 3. Fever above 102 degrees Fahrenheit. 4. Unusual chest pain or shortness of breath. 5. Call [facility] at with any of the above problems. Follow-Up Visit: Follow-up with Dr. Lopez 2-3 weeks after your day of surgery. If you have any questions call Stand-Alone Forms: My [facility] Medications and DC Order Prescriptions: No Action warfarin 5 mg tablet 5 - 7.5 mg PO UD Rx Instructions: Take 7.5mg on Wednesdays and 5mg x 6 days -- Per [facility] [id number] gabapentin 300 mg capsule 300 mg PO TID Qty: 90 5RF aripiprazole [Abilify] 5 mg tablet 5 mg PO QAM Qty: 90 1RF Rx Instructions: for depression alfuzosin 10 mg tablet extended release 24 hr 10 mg PO QPM Qty: 90 3RF Rx Instructions: administer after the same meal each day oxycodone 5 mg tablet 5 - 10 mg PO Q6 PRN (Reason: pain) Qty: 40 0RF Rx Instructions: Take as needed for pain ondansetron 4 mg tablet,disintegrating 4 mg PO Q8 PRN (Reason: nausea) Qty: 20 1RF Rx Instructions: Take as needed for nausea sennosides [Senokot] 8.6 mg tablet 8.6 mg PO BID 14 Days Qty: 28 0RF Rx Instructions: Take two times a day to prevent/treat constipation acetaminophen [Tylenol Extra Strength] 500 mg tablet 1,000 mg PO TID 30 Days Qty: 180 0RF Rx Instructions: Take 3 times per day to lessen pain. duloxetine 60 mg capsule,delayed release(DR/EC) 60 mg PO QPM Qty: 90 3RF (DME) Shower Chair Misc See Rx Instructions .Route Qty: 1 0RF Rx Instructions: As directed (DME) Ultra-Light Rollator Misc See Rx Instructions .Route Qty: 1 0RF Rx Instructions: As directed for 99months cholecalciferol (vitamin D3) 50 mcg (2,000 unit) capsule 50 mcg PO QAM cyanocobalamin (vitamin B-12) 1,000 mcg tablet 1,000 mcg PO QAM multivitamin with minerals Capsule 1 cap PO QAM Cosentyx Pen (2 Pens) 150 mg/mL pen injector 300 mg subcut UD Rx Instructions: 300 mg every 4 weeks (on Svetlana's) for maintenance as directed cephalexin 500 mg Capsule 500 mg PO QID Qty: 11 0RF Rx Instructions: ON DISCHARGE GIVEN RX FOR 11 CAPSULES. 6:00, 12:00, 17:00, 22:00 pantoprazole 40 mg tablet,delayed release (DR/EC) 40 mg PO QAM Admission Data Admit Date/Time: 10/05/24 17:01 Attending Provider: Aries Greenfield Admit Provider: Reynaldo Hobbs Primary Care Provider: Henry Prieto Other Providers: Reynaldo Hobbs; [place]; [facility] Hospital Stay Data Consultations 10/05/24 16:35 ED Decision to Admit Stat Procedures Performed Operation Date: 10/06/24 09:00 Actual Procedures p Right Knee Wound Irrigation and Debridement and Closure(Right) - Antony Myers MD Diagnostic Imagining Performed 10/05/24 14:05 CT abd pelvis IV con only Stat CT cervical spine wo con Stat CT chest diagnostic w con Stat CT head/brain wo con Stat 10/10/24 11:36 CT angio chest PE protocol Urgent Coding Diagnoses Postoperative wound dehiscence, initial encounter T81.31XA Encounter type: initial encounter"
== END 2024-10-11 14:14 | DRG 908 ==
LOC: ED 13:56 → SUATTDRO 17:01 → 3E 17:01